=== PATIENT | female | born 1985 | race Caucasian/White ===

== ENCOUNTER → 2017-05-22 16:25 | Outpatient (CLI) | payer OTHER, SELFPAY ==
[2017-05-22 17:50] LABS: hCG Titer Quant., Serum < 1 mIU/mL (<9 non-preg)
== END ==
PROVIDERS: Family Provider Nurse Practitioner Family; PCP Nurse Practitioner Family; Visit Provider Obstetrics & Gynecology
DX: N91.2 Amenorrhea, unspecified (principal)
CPT/HCPCS: 36415; 84702

== ENCOUNTER → 2017-07-08 12:01 | Outpatient (CLI) | payer OTHER, SELFPAY ==
[2017-07-08 16:00] LABS: Absolute Lymphocyte Count 1.79 X10^3/ul (0.83-4.51); Absolute Neutrophil Count 2.1 X10^3/uL (2.0-7.7); Basophil# 0.04 X10^3/uL; Basophil% 0.9 % (0-1); Eosinophil# 0.17 X10^3/uL; Eosinophils% 3.7 % (0-5); Hematocrit 44.2 % (37-47); Lymphocyte # 1.79 X10^3/ul (4.0); Lymphocyte % 38.9 % (19-41); Mean Corp Hgb Conc 33.9 g/gl (32-36); Mean Corpuscular Hgb 30.6 pg (27.0-32.0); Mean Corpuscular Volume 90.2 fL (81-99); Mean Platelet Vol. 11.3 fl (6.2-12.0); Monocyte# 0.46 X10^3/uL; Neutrophil # 2.13 X10^3/uL (2.7-7.7); Neutrophil % 46.3 % (47-70); Platelet Count 159 K/mm3 (150-450); RBC Distribution Width CV 12.9 % (11.6-14.6); White Blood Count 4.6 K/mm3 (4.4-11.0)
[2017-07-08 16:01] LABS: POSITIVE COUNT NO; POSITIVE DIFFERENTIAL NO; POSITIVE MORPHOLOGY NO
[2017-07-08 16:19] LABS: Erythrocyte Sedimentation Rate < 1 mm/hr (0-20)
[2017-07-08 16:40] LABS: ALB/GLOB Ratio 1.2 RATIO (0.9-2.4); AST(SGOT) 11 U/L (15-37); Alanine Aminotransfer ALT/SGPT 22 U/L (13-56); Alkaline Phosphatase 52 U/L (45-117); Anion Gap 6 (5-15); BUN 13 mg/dL (7-18); BUN/Creat Ratio 18.2 RATIO (10-20); CRP < 2.90 mg/L (0.0-3.0); Calcium,Total 8.8 mg/dL (8.5-10.1); Chloride 108 mmol/L (98-107); Creatinine, Serum 0.72 mg/dL (0.55-1.02); EST Glomerular Filtration Rate 100 mL/min (>60); Est Glom Filt Rate - Afr Amer 121 mL/min (>60); Globulin 3.4 g/dL (2.2-4.2); Glucose 83 mg/dL (74-106); Potassium 4.8 mmol/L (3.5-5.1); Protein, Total 7.4 g/dL (6.4-8.2); Sodium Level 141 mmol/L (136-145)
[2017-07-10 11:42] LABS: Cancer Antigen 125 11.2 U/mL (0.0-38.1)
== END ==
PROVIDERS: Visit Provider Obstetrics & Gynecology
DX: N83.291 Other ovarian cyst, right side (principal); R76.0 Raised antibody titer; Z79.899 Other long term (current) drug therapy
CPT/HCPCS: 36415; 80053; 85025; 85652; 86140; 86304

== ENCOUNTER → 2017-07-10 13:03 | Outpatient (CLI) | payer OTHER, SELFPAY ==
--- NOTE | 2017-07-10 13:06 | US_ITS ---
STUDY: ABDOMINAL ULTRASOUND - RIGHT UPPER QUADRANT REASON FOR VISIT: Female, 31 years old. Right upper quadrant pain. TECHNIQUE: Ultrasound evaluation of the right upper quadrant was performed with real-time and static carranza-scale imaging. TECHNICAL QUALITY: Adequate. COMPARISON: None. FINDINGS: Liver: The liver measures 14.4 cm. There is normal echogenicity of the liver. The bile ducts are within normal limits. There is hepatic color flow. The direction of portal flow is hepatopetal. There is a 1.5 cm x 1.1 cm x 1.2 cm slightly echogenic nodule in the right lobe of liver suggestive of a small hemangioma. This is close to the dome of the liver. Gallbladder: Normal distended gallbladder. The gallbladder wall measures 2.0 mm. There is a negative sonographic Martin's sign. There is no pericholecystic fluid. There are no gallstones. Common Bile Duct (C.B.D.): The common bile duct measures 1.5 mm. Pancreas: Normal size of the head, body and tail of the pancreas. There is normal echogenicity of the pancreas. There is no demonstrated pancreatic mass or cyst. Right Kidney: Normal size of the right kidney. The right kidney measures 10.3 cm x 5.0 cm x 4.0 cm. Normal renal cortex. The right cortex measures 1.2 cm. There is no demonstrated renal mass or cyst. There is no right hydronephrosis. US/Abdomen Limited IMPRESSION: Findings suggestive of a 1.5 cm x 1.1 cm x 1.2 cm hemangioma in the right lobe of the liver adjacent to the dome. Electronically Signed: Ladarius Mensah MD at 15:30 EDT Tel [phone], Service support ,
--- NOTE | 2017-07-10 13:40 | RAD_ITS ---
STUDY: X-RAY CHEST REASON FOR EXAM: Female, 31 years old. Right clavicular pain. TECHNIQUE: PA and lateral views of the chest. COMPARISON: Comparison is made with prior study dated November 01, 2013. FINDINGS: The lungs are clear and expanded. There is no demonstrated pleural abnormality. Normal size heart. Normal mediastinum and joe. Normal visualized pulmonary arteries. Normal visualized aortic arch and descending thoracic aorta. Normal visualized thoracic spine. Normal visualized ribs, clavicles, and shoulders. There is no demonstrated abnormality of the visualized soft tissue structures of the upper abdomen. RAD/Chest PA and Lateral IMPRESSION: Normal x-ray examination of the chest. Electronically Signed: Ladarius Mensah MD at 14:44 EDT Tel [phone], Service support ,
--- NOTE | 2017-07-10 14:06 | ECHOD_ITS ---
Reason For Study: KNOWN PFO Procedure This was a 2D Doppler, Color Flow transthoracic echocardiogram. The exam was of fair technical quality due to diminished acoustic windows. Exam performed in department. Left Ventricle Normal LV size. Left ventricular systolic function is normal. The estimated ejection fraction is 55 %. No evidence for diastolic dysfunction. No regional wall motion abnormalities noted. Right Ventricle Normal RV size. Normal systolic function. Atria Normal left atrium. Normal right atrium. Positive agitated saline contrast study for a right to left interatrial shunt c/w PFO vs. ASD. Mitral Valve There is no mitral annular calcification. Normal mitral valve. Trivial mitral valve insufficiency. Tricuspid Valve Normal tricuspid valve. Trivial tricuspid valve insufficiency. Right ventricular systolic pressure estimated to be 21 mmHg. Aortic Valve Trisinus/trileaflet aortic valve. Normal aortic valve. Pulmonic Valve The pulmonic valve is not well visualized. Trivial pulmonic valve insufficiency. Great Vessels The aortic root is not well visualized. Pericardium/Pleural No pericardial effusion. Medication 22 gauge I.V. with prn adaptor inserted into right arm. Performed a rapid injection of agitated mix of 9 cc saline and 1cc air to assess for atrial septal defect. MMode/2D Measurements & Calculations LVIDd: 4.4 cm IVSd: 0.71 cm LAV(MOD-bp): 37.1 ml LVIDs: 3.0 cm LVPWd: 0.92 cm LAV(MOD-bp) Indexed: 20.6 ml/m2 RVDd: 3.4 cm FS: 33.3 % LAV(MOD-sp2): 42.8 ml LAV(MOD-sp4): 30.7 ml LA A4 area: 14.1 cm2 RA A4 area: 14.0 cm2 Doppler Measurements & Calculations MV E max davie: 77.6 cm/sec Lat Peak E' Davie: 16.4 cm/sec Med Peak E' Davie: 12.5 cm/sec MV A max davie: 50.0 cm/sec E/E' lat: 4.7 E/E' med: 6.2 MV E/A: 1.6 Ao V2 max: 140.5 cm/sec LV V1 max: 115.7 cm/sec PA V2 max: 81.7 cm/sec Ao max P.9 mmHg LV V1 max P.4 mmHg TR max davie: 209.2 cm/sec TR max P.5 mmHg Interpretation Summary Left ventricular systolic function is normal. The estimated ejection fraction is 55 %. Trivial mitral valve insufficiency. Trivial tricuspid valve insufficiency. Trivial pulmonic valve insufficiency. Right ventricular systolic pressure estimated to be 21 mmHg. No evidence for diastolic dysfunction. Positive agitated saline contrast study for a right to left interatrial shunt c/w PFO vs. ASD. Ordering Physician: Jessica Dee Referring Physician: Jessica Dee Performed By: Luisa Torres, PETAR, RVT
== END ==
PROVIDERS: Visit Provider Family Medicine
DX: R10.11 Right upper quadrant pain (principal); M89.8X1 Other specified disorders of bone, shoulder; Q21.1 Atrial septal defect
CPT/HCPCS: 71046; 76705; 93306; A4216

== ENCOUNTER 2017-08-05 11:02 | Day surgery (SDC) | payer OTHER, SELFPAY ==
[2017-07-31 16:17] LABS: Hematocrit 41.1 % (37-47); Hemoglobin 13.9 g/dl (12.0-15.0); Mean Corp Hgb Conc 33.8 g/gl (32-36); Mean Corpuscular Hgb 30.2 pg (27.0-32.0); Mean Corpuscular Volume 89.2 fL (81-99); Mean Platelet Vol. 10.1 fl (6.2-12.0); Platelet Count 140 K/mm3 (150-450); RBC Distribution Width CV 12.7 % (11.6-14.6); RBC Distribution Width SD 40.5 fl (35.1-43.9); Red Blood Count 4.61 M/mm3 (4.2-5.4); White Blood Count 7.4 K/mm3 (4.4-11.0)
[2017-07-31 16:19] LABS: Scan Indicated on CBC? Y/N NO
--- NOTE | 2017-08-05 | FLU_PTH ---
PATIENT: FANNY CELAYA [place] [facility] [place] [facility] [id number] AGE/SX: 31/F ROOM: RE08/05/[address]: Dr. Amelie High MD : 1985 BED: DIS: 08/05/2017 SPEC #: [id number] RECD: 08/05/17 14:44 STATUS: TIFFANIE CHELA #: [id number] CHAVEZ: 08/05/17 00:[address]: Amelie High DEPT: CYTOLOGY RECD BY: Samir Heredia ENTERED: 08/05/17 14:44 SP TYPE: Fluid OTHR DR: Paris Cabrera, MECHANICAL LEAD-C Tissues: Pelvis, NOS Procedures: Pap Stain (control) Special Stain Group II Surgery Specimen Level IV Cell Block Cytospin Fluid HEADER OPERATION: Diagnostic laparoscopy, aspiration of ovarian cyst, right oophorectomy PRE-OP DIAGNOSIS: Pelvic and perineal pain, right ovarian cyst TISSUE SUBMITTED: Right ovarian aspirate for cytology DIAGNOSIS CYTOLOGY Right ovarian aspirate for cytology (cytospin and cell block): Negative for malignant cells. See comment. SJ:kristine 08/06/17 COMMENT Please correlate with corresponding surgical specimen ([id number]) right ovary, oophorectomy with diagnosis of physiologic follicular and corpus luteal cysts. CYTOLOGY STUDY Slides are reviewed. CYTOLOGY GROSS Received is 1 ml of red cloudy fluid labeled with the patient's name and and designated per the requisition as right ovarian aspirate. Submitted for cytology preparation including cell block. / 08/05/17 TC:5 CPT: 30031, 52434
--- NOTE | 2017-08-05 | OV_PTH ---
PATIENT: FANNY CELAYA LOC: [facility] – [place] U#:[id number] AGE/SX: 31/F ROOM: RE08/05/[address]: Dr. Amelie High MD : 1985 BED: DIS: 08/05/2017 SPEC #: [id number] RECD: 08/05/17 14:44 STATUS: TIFFANIE CHELA #: [id number] CHAVEZ: 08/05/17 00:[address]: Amelie High DEPT: SURGICAL PATHOLOGY RECD BY: Samir Heredia ENTERED: 08/05/17 14:45 SP TYPE: OVARY OTHR DR: Paris Cabrera, SCHOOL PSYCHOMETRIST-C Tissues: Right ovary Procedures: Surgery Specimen Level IV HEADER OPERATION: Diagnostic laparoscopy, aspiration of ovarian cyst, right oophorectomy PRE-OP DIAGNOSIS: Pelvic and perineal pain, right ovarian cyst TISSUE SUBMITTED: Right ovary MICROSCOPIC DIAGNOSIS Right ovary, oophorectomy: Physiologic follicular and corpus luteal cysts. SJ:kristine 08/06/17 MICROSCOPIC DESCRIPTION Slides are reviewed. GROSS DESCRIPTION Received in fixative is one container labeled with the patient's name and designated right ovary. The specimen consists of a soft to cystic ovary weighing 15 gm and measuring 4.5 x 3 x 2.5 cm. The outer surface is smooth without any papillation. The resection margin is inked blue. Sections reveal multiple cysts filled with clear to hemorrhagic fluid. A corpus luteum is also noted measuring 2 cm in greatest dimension. The larger cyst measures 2.5 cm in greatest dimension. Water Softener Service Supervisor sections are submitted in four cassettes. / ANTONIO:kristine 08/05/17 TC:4 CPT: 63584
--- NOTE | 2017-08-05 11:11 | EKG12_ITS ---
Test Reason : PREOP Blood Pressure : / mmHG Vent. Rate : 064 BPM Atrial Rate : 064 BPM P-R Int : 140 ms QRS Dur : 084 ms QT Int : 372 ms P-R-T Axes : 070 077 059 degrees QTc Int : 383 ms Normal sinus rhythm Normal ECG No previous ECGs available Confirmed by MICHAEL ZUÑIGA, MARCOS ([id number]), newspaper or periodical editor YASMIN CORNELIUS ([id number]) on 08/06/2017 11:17:15 AM Referred By: Amelie High Confirmed By:MARCOS RODRIGUEZ MD
[2017-08-05 11:21] VITALS: BP 120/71; PULSE 79; RESP 16; TEMP 36.8; O2SAT 99; BMI 23.6
[2017-08-05 11:32] LABS: Internal QC Validated? YES +Cl - CLEAR BKGD; Pregnancy, Urine Negative Negative
[2017-08-05 11:39] LABS: International Normalized Ratio 1.1; Prothrombin Time (Protime)PT. 13.8 SECONDS (11.7-14.9)
[2017-08-05 11:40] LABS: Partial Thromboplast Time 29.2 Seconds (24.1-36.2)
--- NOTE | 2017-08-05 12:25 | PCM.DC ---
You will use the following diet at home:: No restrictions Discharge Activity: May not drive while taking narcotic pain medications., May Shower, May Take a Tub Bath Return to work on:: 08/10/17 May resume sexual activity in: 1 week Weight Bearing Status: Weight bearing as tolerated Call your doctor if your incision/area has: Continuous Slow Oozing, Sudden Increased Bleeding, Increased Pain/ Swelling, Increased Redness Call your doctor if you observe: Fever of 101 or Higher, Inability to have a bowel movement, Uncontrolled pain Change Dressing in (Days):: 4 Remove Dressing in (days):: 4 Cleanse incision/area with: Soap & Water, Keep Dressing Clean & Dry Allergies/Adverse Reactions: Allergies doxycycline Allergy (Unknown, Verified 07/30/17 15:00) Unknown Penicillins Allergy (Unknown, Verified 07/30/17 15:00) Unknown vancomycin Allergy (Unknown, Verified 07/30/17 15:00) Unknown bee pollen [Bee Pollen] Allergy (Verified 07/30/17 15:00) Swelling piperacillin sodium [From Zosyn] Allergy (Verified 07/30/17 15:00) Anaphylaxis tazobactam sodium [From Zosyn] Allergy (Verified 07/30/17 15:00) Anaphylaxis tramadol Adverse Reaction (Verified 07/30/17 15:00) Nausea/Vom/Diarrhea Medications to take at Discharge Albuterol IH (ProAir) [Proair Hfa] 1 - 2 puff INHALATION Q4H PRN PRN 10/31/13 Montelukast [Singulair] 10 mg PO DAILY 10/31/13 cetirizine 10 mg capsule 10 mg PO QDAY 07/13/17 spironolactone 100 mg tablet 100 mg PO DAILY 90 Days #90 07/13/17 tocilizumab 162 mg/0.9 mL subcutaneous syringe 162 mg SC QWEEK 28 Days #4 07/13/17 Oxycodone [Oxyir] 5 mg PO Q4H PRN PRN 3 Days #10 tablet 08/05/17 The following prescriptions were given: Oxycodone [Oxyir] 5 mg PO Q4H PRN PRN 3 Days #10 tablet PRN Reason: Mod-Severe Pain (4-10/10) Primary Care Physician: Paris Cabrera NP-C [Primary Care Provider] -
[2017-08-05] MEDS: Bupivacaine Mpf 0.5% 30 ML VIAL (13:00)
[2017-08-05 13:26] VITALS: BP 117/59; BP 120/71; PULSE 82; RESP 16; TEMP 36.7; O2SAT 100
[2017-08-05 13:45] VITALS: BP 116/79; BP 120/71; PULSE 60; RESP 16; O2SAT 100
[2017-08-05 14:00] VITALS: BP 109/75; BP 120/71; PULSE 70; RESP 16; TEMP 36.3; O2SAT 96
[2017-08-05] MEDS: oxyCODONE 5 MG Tablet PO (14:44)
--- NOTE | 2017-08-05 14:47 | PCM.OP.BLANK ---
Operative Report Date of Procedure: 08/05/17 PROCEDURE: Laparoscopy R ovarian cyst aspiration R oophorectomy PREOPERATIVE DIAGNOSIS: Persistent R ovarian cyst -- with daughter cysts within large cyst Presence of Mirena IUD POSTOPERATIVE diagnosis: Same Surgeon: Amelie High MD Anesthesia: general anesthesia. Sheree Flores CRNA Employee Benefits Coordinator: JEANIE Jimenez EBL: minimal Complications: None Drains: Red Prado catheter used to drain the bladder prior to initiation of the case Fluids: LR replacement Findings; Normal appearing, anteverted uterus. Fallopian tubes WNL bilaterally. Left ovary WNL and freely mobile. Right ovary globally enlarged with papule consistent with recent ovulation. Cystic area aspirated of pink / red tinged serous fluid. Unable to fully aspirate to collapse the ovary to normal appearance. Gross inspection of bowel, omentum WNL. Photos were taken of the uterus and ovaries then of the R adnexa after R oophorectomy Narrative account: After the risks, benefits, alternatives of procedure had been reviewed with the patient, informed consent was obtained. The patient was taken back to the Operative room with an IV running. she was positioned on the operating table in dorsal supine position, where she was given general anesthesia. Once asleep she was repositioned to the dorsal lithotomy position and prepped and draped in the usual sterile fashion. A red Prado catheter was used to drain the bladder prior to initiating the case. A sponge stick was placed into the vagina to allow manipulation of the uterus and cervix during the case. Attention was then turned to the anterior abdominal wall where 8 cc of 0. 5 % Marcaine was instilled at the suprapubic and infraumbilical skin and at a point midway between in the midline. Skin incisions were then created in the midline at the suprapubic skin and at the infraumbilical skin and midway between the two. While maintaining upward traction of the anterior abdominal wall a Veress needle was inserted through the umbilical incision into the peritoneal cavity. There was free drop of saline, low opening pressure and free flow of CO2 noted. Once the intraabdominal pressure had reached 12 mm of mercury the Veress needle was removed and a bladeless 5 mm trocar was placed through infraumbilical skin incision into the peritoneal cavity. Correct placement was confirmed using the scope. Under direct visualization then with the patient in Trendelenburg position, a bladeless 5 mm trocar was inserted in through suprapubic skin incision into the peritoneal cavity and at a point midway between the infraumbilical and suprapubic trocars. The uterus as anteverted and both ovaries and fallopian tubes were inspected. The right ovary was approximately twice the size of the L ovary and was globally enlarged with a spot noted consistent with likely recent ovulation. The R infundibulopelvic ligament was grasped and the R ovary was punctured to aspirate the cyst. Less than 10 cc of pink to light red tinged serous appearing liquid was retrieved and sent to pathology as cytology. The R ovary remained enlarged in appearance and despite other attempts to further aspirate the cyst, no additional fluid was withdrawn and the ovary remained larger in appearance than the L ovary. Given this fact and the appearance of the cyst on ultrasound the decision was made to proceed with a right oophorectomy. Using a grasper and LigaSure device the R ovary was excised. A 10-12 mm bladeless trochar was inserted into the suprapubic skin incision as the 5 mm trochar was removed from that site. An EndoCatch bag was placed into the abdominal / pelvic cavity and the R ovary was placed into the bag and brought through the suprapubic incision. the pelvis was inspected and photos were taken. Excellent hemostasis was noted at the excision site. Photos were taken of the uterus and normal appearing left ovary, and normal appearing bilateral fallopian tubes. At this point the the procedure was terminated. The pneumoperitoneum was reduced and the instruments and trocars were removed from he the anterior abdominal wall skin. The skin incisions were closed with 4-0 Monocryl in a subcuticular fashion. Dermabond and OpSites were applied to the skin. The sponge stick was removed from the vagina. The patient was returned to dorsal supine position. She was awakened from general anesthesia. She was transferred to the recovery room bed in stable condition after tolerating the procedure well. Sponge, lap, needle and instrument counts were correct x two. Medications given preop and intraoperatively included: 8 cc of 1/2 % Marcaine --used as a subcutaneous block . For a complete listing of medications given preop and intraop , please see the anesthesia record.
[2017-08-05] MEDS: proMETHazine 25 MG/ML Syringe 12.5 MG IV (15:16)
[2017-08-05 15:26] VITALS: BP 109/66; BP 120/71; PULSE 64; RESP 16; TEMP 36.8; O2SAT 64
[2017-08-12 07:53] LABS: Cytology, Body Fluid / CSF SEE PATHOLOGY REPORT
== END 2017-08-05 15:29 | disposition home or self-care (01) ==
LOC: SDC 11:04 → AC 11:04
PROVIDERS: Family Provider Nurse Practitioner Primary Care; PCP Nurse Practitioner Primary Care; Visit Provider Obstetrics & Gynecology
PROC: (CPT 58661; principal; 2017-08-05 12:15)
DX: N83.11 Corpus luteum cyst of right ovary (principal); R10.2 Pelvic and perineal pain; J45.909 Unspecified asthma, uncomplicated; Z97.5 Presence of (intrauterine) contraceptive device; Z87.891 Personal history of nicotine dependence
CPT/HCPCS: 00840; 58661; 36415; 81025; 85027; 85610; 85730; 88108; 88305; 88313; 93005; J7120; J2405

== ENCOUNTER → 2017-11-05 14:05 | Outpatient (CLI) | payer OTHER, SELFPAY ==
--- NOTE | 2017-11-05 14:07 | BI_ITS ---
MAMMOGRAPHY - BILATERAL DIAGNOSTIC REASON FOR EXAM: Female, 31 years old. Six-month history of right breast lump. Currently not palpable. PERTINENT HISTORY: Non-contributory. TECHNIQUE: Digital bilateral breast alber (3D mammographic acquisition) in the CC and MLO projections. 2-D mediolateral oblique (MLO) and craniocaudad (CC) views of both breasts were obtained. CAD: Full Field Digital Mammography with Computer Added Detection was performed. COMPARISON: None. Baseline examination. FINDINGS: Breast Composition: The breasts are extremely dense, which lowers the sensitivity of mammography. There are no dominant masses or suspicious calcifications. No other significant abnormalities are identified. BI/DIAG MAMM W/CAD, BILAT IMPRESSION: Stable bilateral diagnostic mammogram. One year follow-up recommended. (A) ASSESSMENT CATEGORY: BIRADS Category 1: Negative. A letter regarding these results will be sent to the patient by the facility within 30 days. Approximately 10% of breast cancers are not detected by mammography. A normal mammogram should not delay biopsy of a clinically suspicious abnormality. Electronically Signed: Ladarius Mensah MD at 15:44 EDT Tel [phone], Service support ,
--- NOTE | 2017-11-05 14:08 | US_ITS ---
STUDY: ULTRASOUND BREAST - RIGHT REASON FOR EXAM: Female, 31 years old. Palpable lumps in the right breast. TECHNIQUE: Axial and longitudinal images of the RIGHT breast were performed with a high resolution ultrasound transducer. COMPARISON: Comparison is made with prior mammogram done earlier today. FINDINGS: RIGHT Breast: There is a 9 mm x 9 mm x 5 mm cyst at the 11:00 position of the breast at 2 cm from the nipple. There is also evidence of a 4 mm x 4 mm x 3 mm cyst at the 10:00 position of the breast at 5 cm from the nipple. US/Breast Limited Unilateral IMPRESSION: 2 small cysts are seen as described. Routine mammographic follow-up recommended. ASSESSMENT CATEGORY: BIRADS Category 2: Benign. A letter regarding these results will be sent to the patient by the facility within 30 days. Electronically Signed: Ladarius Mensah MD at 15:39 EDT Tel [phone], Service support ,
== END ==
PROVIDERS: Visit Provider Obstetrics & Gynecology
DX: N63.11 Unspecified lump in the right breast, upper outer quadrant (principal)
CPT/HCPCS: 76642; 77062; 77066; G0279

== ENCOUNTER → 2018-02-15 09:29 | Outpatient (CLI) | payer OTHER, SELFPAY ==
[2018-02-15 10:27] LABS: Erythrocyte Sedimentation Rate < 1 mm/hr (0-20)
[2018-02-15 10:30] LABS: Absolute Neutrophil Count 1.9 X10^3/uL (2.0-7.7); Basophil# 0.04 X10^3/uL; Eosinophil# 0.25 X10^3/uL; Eosinophils% 6.2 % (0-5); Hemoglobin 14.8 g/dl (12.0-15.0); Lymphocyte % 36.9 % (19-41); Mean Corp Hgb Conc 33.6 g/gl (32-36); Mean Corpuscular Hgb 30.1 pg (27.0-32.0); Mean Corpuscular Volume 89.6 fL (81-99); Mean Platelet Vol. 10.3 fl (6.2-12.0); Monocyte% 9.9 % (0-10); Neutrophil # 1.87 X10^3/uL (2.7-7.7); Platelet Count 157 K/mm3 (150-450); RBC Distribution Width CV 12.8 % (11.6-14.6); RBC Distribution Width SD 41.4 fl (35.1-43.9); Red Blood Count 4.91 M/mm3 (4.2-5.4); White Blood Count 4.1 K/mm3 (4.4-11.0)
[2018-02-15 10:32] LABS: POSITIVE COUNT NO; POSITIVE DIFFERENTIAL NO; POSITIVE MORPHOLOGY NO
[2018-02-15 11:23] LABS: ALB/GLOB Ratio 1.3 RATIO (0.9-2.4); AST(SGOT) 10 U/L (15-37); Alanine Aminotransfer ALT/SGPT 20 U/L (13-56); Albumin, Serum 3.9 g/dL (3.2-5.0); Alkaline Phosphatase 41 U/L (45-117); Anion Gap 9 (5-15); BUN 14 mg/dL (7-18); BUN/Creat Ratio 18.2 RATIO (10-20); CRP < 2.90 mg/L (0.0-3.0); Calcium,Total 8.3 mg/dL (8.5-10.1); Chloride 107 mmol/L (98-107); Creatinine, Serum 0.77 mg/dL (0.55-1.02); EST Glomerular Filtration Rate 92 mL/min (>60); Est Glom Filt Rate - Afr Amer 111 mL/min (>60); Glucose 90 mg/dL (74-106); Potassium 4.1 mmol/L (3.5-5.1); Protein, Total 6.9 g/dL (6.4-8.2); Sodium Level 143 mmol/L (136-145)
== END ==
PROVIDERS: Family Provider Nurse Practitioner Primary Care; Referring Provider Internal Medicine Rheumatology; Visit Provider Internal Medicine Rheumatology
DX: R76.0 Raised antibody titer (principal); Z79.899 Other long term (current) drug therapy
CPT/HCPCS: 36415; 80053; 85025; 85652; 86140

== ENCOUNTER → 2018-07-08 07:20 | Outpatient (CLI) | payer OTHER, SELFPAY ==
[2018-07-08 10:03] LABS: Absolute Lymphocyte Count 1.66 X10^3/ul (0.83-4.51); Absolute Neutrophil Count 1.3 X10^3/uL (2.0-7.7); Basophil# 0.03 X10^3/uL; Basophil% 0.8 % (0-1); Eosinophil# 0.17 X10^3/uL; Eosinophils% 4.8 % (0-5); Hemoglobin 14.4 g/dl (12.0-15.0); Lymphocyte # 1.66 X10^3/ul (4.0); Lymphocyte % 46.5 % (19-41); Mean Corp Hgb Conc 34.3 g/gl (32-36); Mean Corpuscular Hgb 29.6 pg (27.0-32.0); Mean Corpuscular Volume 86.4 fL (81-99); Mean Platelet Vol. 10.3 fl (6.2-12.0); Monocyte# 0.42 X10^3/uL; Monocyte% 11.8 % (0-10); Neutrophil # 1.29 X10^3/uL (2.7-7.7); Neutrophil % 36.1 % (47-70); Platelet Count 147 K/mm3 (150-450); RBC Distribution Width CV 12.2 % (11.6-14.6); RBC Distribution Width SD 37.8 fl (35.1-43.9); Red Blood Count 4.86 M/mm3 (4.2-5.4); White Blood Count 3.6 K/mm3 (4.4-11.0)
[2018-07-08 10:05] LABS: POSITIVE COUNT NO; POSITIVE DIFFERENTIAL NO; POSITIVE MORPHOLOGY NO
[2018-07-08 10:12] LABS: Internal QC Validated? YES +Cl - CLEAR BKGD; Pregnancy, Serum, hCG Quali. NEGATIVE Negative
[2018-07-08 10:17] LABS: ALB/GLOB Ratio 1.3 RATIO (0.9-2.4); AST(SGOT) 15 U/L (15-37); Alanine Aminotransfer ALT/SGPT 20 U/L (13-56); Albumin, Serum 3.8 g/dL (3.2-5.0); Alkaline Phosphatase 44 U/L (45-117); Anion Gap 5 (5-15); BUN 14 mg/dL (7-18); BUN/Creat Ratio 17.7 RATIO (10-20); Calcium,Total 8.4 mg/dL (8.5-10.1); Chloride 110 mmol/L (98-107); Cholesterol 134 mg/dL (200); Creatinine, Serum 0.79 mg/dL (0.55-1.02); EST Glomerular Filtration Rate 88 mL/min (>60); Est Glom Filt Rate - Afr Amer 107 mL/min (>60); Glucose 85 mg/dL (74-106); High Density Lipoprotein 66 mg/dL; Protein, Total 6.8 g/dL (6.4-8.2); Sodium Level 143 mmol/L (136-145); Triglycerides 72 mg/dL; Very Low Density Lipoprotein 14 mg/dL (5-40)
== END ==
DX: L70.0 Acne vulgaris (principal); Z79.899 Other long term (current) drug therapy
CPT/HCPCS: 36415; 80053; 80061; 84703; 85025

== ENCOUNTER → 2018-08-03 | Outpatient (CLI) | payer OTHER, SELFPAY ==
[2018-08-03 14:38] LABS: Bacteria 0 SEEN /hpf (None Seen)
[2018-08-03 15:21] LABS: Color, Urine Yellow (Yellow); Glucose, Dipstick Normal (Normal); Ketone-Dipstick Negative (Negative); Leukocyte Esterase-Dipstick 25 /ul (Negative); Nitrite-Dipstick Negative (Negative); Occult Blood-Urine 10 /ul (Negative); Protein-Dipstick Negative (Negative); Specific Gravity, Urine 1.025 (1.002-1.030); Urine Bilirubin Dipstick Negative (Negative); Urine Clarity Clear (Clear); Urine Urobilinogen Normal (Normal)
[2018-08-03 15:29] LABS: Red Blood Cells-Urine 0-5 SEEN /hpf (0-5); Squamous Epithelial Cells - UA 0-5 SEEN /hpf (5-10); White Blood Cells 0-5 SEEN /hpf (0-5)
[2018-08-03 15:30] LABS: Mucous, Urine RARE /hpf (<or=2+)
== END | disposition home or self-care (01) ==
LOC: LABSPEC 14:16
PROVIDERS: Referring Provider Physician Assistant Surgical; Visit Provider Physician Assistant Surgical
DX: R30.0 Dysuria (principal)
CPT/HCPCS: 81001; 87086; 87088

== ENCOUNTER 2018-08-06 09:11 | Outpatient (RCR) | payer OTHER, SELFPAY ==
[2018-08-06 10:19] LABS: Absolute Lymphocyte Count 1.53 X10^3/ul (0.83-4.51); Absolute Neutrophil Count 1.4 X10^3/uL (2.0-7.7); Basophil# 0.04 X10^3/uL; Basophil% 1.1 % (0-1); Eosinophil# 0.24 X10^3/uL; Eosinophils% 6.5 % (0-5); Hematocrit 42.3 % (37-47); Hemoglobin 14.4 g/dl (12.0-15.0); Lymphocyte # 1.53 X10^3/ul (4.0); Lymphocyte % 41.4 % (19-41); Mean Corpuscular Hgb 29.8 pg (27.0-32.0); Mean Corpuscular Volume 87.6 fL (81-99); Mean Platelet Vol. 10.4 fl (6.2-12.0); Monocyte# 0.44 X10^3/uL; Monocyte% 11.9 % (0-10); Neutrophil # 1.44 X10^3/uL (2.7-7.7); Neutrophil % 38.8 % (47-70); Platelet Count 150 K/mm3 (150-450); RBC Distribution Width CV 12.4 % (11.6-14.6); RBC Distribution Width SD 39.9 fl (35.1-43.9); Red Blood Count 4.83 M/mm3 (4.2-5.4); White Blood Count 3.7 K/mm3 (4.4-11.0)
[2018-08-06 10:21] LABS: POSITIVE COUNT NO; POSITIVE DIFFERENTIAL NO; POSITIVE MORPHOLOGY NO
[2018-08-06 10:32] LABS: ALB/GLOB Ratio 1.3 RATIO (0.9-2.4); AST(SGOT) 13 U/L (15-37); Alanine Aminotransfer ALT/SGPT 19 U/L (13-56); Alkaline Phosphatase 39 U/L (45-117); Anion Gap 3 (5-15); BUN 12 mg/dL (7-18); BUN/Creat Ratio 14.3 RATIO (10-20); Calcium,Total 8.6 mg/dL (8.5-10.1); Chloride 110 mmol/L (98-107); Cholesterol 154 mg/dL (200); Creatinine, Serum 0.84 mg/dL (0.55-1.02); EST Glomerular Filtration Rate 82 mL/min (>60); Est Glom Filt Rate - Afr Amer 100 mL/min (>60); Globulin 3.1 g/dL (2.2-4.2); Glucose 89 mg/dL (74-106); High Density Lipoprotein 58 mg/dL; Potassium 4.3 mmol/L (3.5-5.1); Protein, Total 7.1 g/dL (6.4-8.2); Sodium Level 140 mmol/L (136-145); Triglycerides 67 mg/dL; Very Low Density Lipoprotein 13 mg/dL (5-40)
[2018-08-06 10:53] LABS: hCG Titer Quant., Serum < 1 mIU/mL (1-3)
[2018-08-09 11:46] LABS: LDL, Direct 120295 91 mg/dL (0-99)
== END 2018-08-06 09:30 | disposition home or self-care (01) ==
LOC: MTLAB 09:11
DX: L70.0 Acne vulgaris (principal); Z79.899 Other long term (current) drug therapy
CPT/HCPCS: 36415; 80053; 80061; 83721; 84702; 85025

== ENCOUNTER → 2018-08-27 11:49 | Outpatient (CLI) | payer OTHER, SELFPAY ==
[2018-08-27 18:36] LABS: Chlamydia Trachomatis by PCR Negative (Negative); Neisserai gonorrhoeae by PCR Negative (Negative); Probe Check PASS; Sample Adequacy Control PASS; Specimen Processing Control PASS
== END ==
PROVIDERS: Visit Provider Obstetrics & Gynecology
DX: Z30.430 Encounter for insertion of intrauterine contraceptive device (principal); Z11.3 Encounter for screening for infections with a predominantly sexual mode of transmission
CPT/HCPCS: 87491; 87591

== ENCOUNTER 2018-09-01 07:23 | Outpatient (RCR) | payer OTHER, SELFPAY ==
[2018-09-01 10:21] LABS: Erythrocyte Sedimentation Rate < 1 mm/hr (0-20)
[2018-09-01 10:23] LABS: Absolute Lymphocyte Count 1.78 X10^3/uL (0.83-4.51); Absolute Neutrophil Count 1.4 X10^3/uL (2.0-7.7); Basophil# 0.04 X10^3/uL; Basophil% 1.1 % (0-1); Eosinophil# 0.21 X10^3/uL; Eosinophils% 5.6 % (0-5); Hemoglobin 14.6 g/dL (12.0-15.0); Lymphocyte # 1.78 X10^3/ul (4.0); Lymphocyte % 47.5 % (19-41); Mean Corp Hgb Conc 33.2 g/dL (32-36); Mean Corpuscular Hgb 29.9 pg (27.0-32.0); Mean Corpuscular Volume 90.2 fL (81-99); Mean Platelet Vol. 10.7 fl (6.2-12.0); Monocyte# 0.36 X10^3/uL; Monocyte% 9.6 % (0-10); NRBC Flagged by Analyzer 0 % (0-5); Neutrophil # 1.35 X10^3/uL (2.7-7.7); Neutrophil % 35.9 % (47-70); Platelet Count 169 K/mm3 (150-450); RBC Distribution Width CV 12.4 % (11.6-14.6); RBC Distribution Width SD 40.7 fl (35.1-43.9); Red Blood Count 4.88 M/mm3 (4.2-5.4); White Blood Count 3.8 K/mm3 (4.4-11.0)
[2018-09-01 10:59] LABS: ALB/GLOB Ratio 1.2 RATIO (0.9-2.4); AST(SGOT) 15 U/L (15-37); Alanine Aminotransfer ALT/SGPT 24 U/L (13-56); Albumin, Serum 4.1 g/dL (3.2-5.0); Alkaline Phosphatase 46 U/L (45-117); Anion Gap 10 (5-15); BUN 13 mg/dL (7-18); BUN/Creat Ratio 15.5 RATIO (10-20); CRP < 2.90 mg/L (0.0-3.0); Calcium,Total 8.8 mg/dL (8.5-10.1); Chloride 107 mmol/L (98-107); Cholesterol 186 mg/dL (200); Creatinine, Serum 0.84 mg/dL (0.55-1.02); EST Glomerular Filtration Rate 83 mL/min (>60); Est Glom Filt Rate - Afr Amer 100 mL/min (>60); Globulin 3.4 g/dL (2.2-4.2); Glucose 85 mg/dL (74-106); High Density Lipoprotein 63 mg/dL; Potassium 4.2 mmol/L (3.5-5.1); Protein, Total 7.5 g/dL (6.4-8.2); Sodium Level 142 mmol/L (136-145); Triglycerides 111 mg/dL; Very Low Density Lipoprotein 22 mg/dL (5-40)
[2018-09-02 10:41] LABS: HCG BETA-SUBUNIT QUANT. < 1 mIU/mL (.)
== END 2018-09-15 15:57 | disposition home or self-care (01) ==
LOC: MTLAB 07:23
PROVIDERS: Family Provider Internal Medicine; PCP Internal Medicine
DX: L70.0 Acne vulgaris (principal); Z79.899 Other long term (current) drug therapy
CPT/HCPCS: 36415; 80053; 80061; 84702; 85025; 85652; 86140

== ENCOUNTER → 2018-10-02 08:51 | Outpatient (CLI) | payer OTHER, SELFPAY ==
[2018-09-23 19:23] VITALS: BMI 23.6
--- NOTE | 2018-10-02 08:54 | US_ITS ---
STUDY: ABDOMINAL ULTRASOUND REASON FOR EXAM: Female, 32 years old. Rheumatoid arthritis and leukopenia. TECHNIQUE: Transabdominal ultrasound was performed with real-time and static carranza scale imaging. TECHNICAL QUALITY: Adequate. COMPARISON: Ultrasound of the abdomen 04/12/2017 was not submitted for comparison. CT of the abdomen dated 01/05/2012 was not submitted for comparison. FINDINGS: Liver: The liver measures 16.8 cm. There is normal echogenicity of the liver. The bile ducts are within normal limits. There is hepatic color flow. The direction of portal flow is hepatopetal. Small hyperechoic lesion in the right hepatic lobe measures 1.5 x 1.5 x 1.8 cm. Gallbladder: Normal distended gallbladder measuring 6.2 cm in the sagittal dimension. The gallbladder wall measures 2 mm. There is a negative sonographic Martin's sign. There is no pericholecystic fluid. There are no gallstones. Common Bile Duct (C.B.D.): The common bile duct measures 3 mm. Pancreas: Normal size of the head, body and tail of the pancreas. There is normal echogenicity of the pancreas. There is no demonstrated pancreatic mass or cyst. The pancreatic duct is not dilated. Spleen: Normal size of the spleen. The spleen measures 11.1 x 4.2 x 5.4 cm. Right Kidney: Normal size of the right kidney. The right kidney measures 10.8 x 4.6 x 3.6 cm. Normal renal cortex. The right cortex measures 1.2 cm. 1.6 x 1.9 x 1.2 cm anechoic cyst. There is no right hydronephrosis. Left Kidney: Normal size of the left kidney. The left kidney measures 11.2 x 5.4 x 5.4 cm. Normal renal cortex. The left cortex measures 1.7 cm. There is no demonstrated renal mass or cyst. There is no left hydronephrosis. Aorta: Proximal dimensions are 1.9 x 1.3 cm. Mid dimensions are 1.4 x 1.2 cm. Distal dimensions are 1.2 x 1.3 cm. I.V.C.: The IVC is patent. There is no ascites. US/Abdomen Complete IMPRESSION: 1. 1.5 x 1.5 x 1.8 cm mildly hyperechoic lesion in the right hepatic lobe. This is most likely benign hepatic hemangioma. This was mentioned in previous ultrasound abdomen report of 07/10/2017. This hemangioma was also mentioned in a previous CT abdomen report of 01/05/2012. 2. No suspicious acute abnormality in the abdomen. 3. 1.6 x 1.9 x 1.2 cm anechoic cyst in the left kidney wasn't mentioned in previous ultrasound report of 04/12/2017. Electronically Signed: Rohit Nicholas MD at 11:10 EDT , Service support ,
== END ==
PROVIDERS: Family Provider Internal Medicine; PCP Internal Medicine; Referring Provider Internal Medicine; Visit Provider Internal Medicine
DX: M06.9 Rheumatoid arthritis, unspecified (principal); D72.819 Decreased white blood cell count, unspecified
CPT/HCPCS: 76700

== ENCOUNTER 2018-10-08 07:25 | Outpatient (RCR) | payer OTHER, SELFPAY ==
[2018-09-23 19:23] VITALS: BMI 23.6
[2018-10-08 10:39] LABS: Absolute Lymphocyte Count 1.63 X10^3/uL (0.83-4.51); Absolute Neutrophil Count 2.4 X10^3/uL (2.0-7.7); Basophil# 0.03 X10^3/uL; Basophil% 0.6 % (0-1); Eosinophil# 0.17 X10^3/uL; Eosinophils% 3.6 % (0-5); Hematocrit 41.6 % (37-47); Hemoglobin 14.1 g/dL (12.0-15.0); Lymphocyte # 1.63 X10^3/ul (4.0); Lymphocyte % 34.2 % (19-41); Mean Corp Hgb Conc 33.9 g/dL (32-36); Mean Corpuscular Hgb 30.8 pg (27.0-32.0); Mean Corpuscular Volume 90.8 fL (81-99); Mean Platelet Vol. 10.7 fl (6.2-12.0); Monocyte# 0.56 X10^3/uL; Monocyte% 11.7 % (0-10); NRBC Flagged by Analyzer 0 % (0-5); Neutrophil # 2.37 X10^3/uL (2.7-7.7); Neutrophil % 49.7 % (47-70); Platelet Count 161 K/mm3 (150-450); RBC Distribution Width CV 12.7 % (11.6-14.6); RBC Distribution Width SD 41.3 fl (35.1-43.9); Red Blood Count 4.58 M/mm3 (4.2-5.4); White Blood Count 4.8 K/mm3 (4.4-11.0)
[2018-10-08 11:00] LABS: ALB/GLOB Ratio 1.2 RATIO (0.9-2.4); AST(SGOT) 10 U/L (15-37); Alanine Aminotransfer ALT/SGPT 21 U/L (13-56); Albumin, Serum 3.7 g/dL (3.2-5.0); Alkaline Phosphatase 44 U/L (45-117); Anion Gap 6 (5-15); BUN 9 mg/dL (7-18); Calcium,Total 8.5 mg/dL (8.5-10.1); Chloride 111 mmol/L (98-107); Cholesterol 152 mg/dL (200); Creatinine, Serum 0.75 mg/dL (0.55-1.02); EST Glomerular Filtration Rate 94 mL/min (>60); Est Glom Filt Rate - Afr Amer 114 mL/min (>60); Globulin 3.2 g/dL (2.2-4.2); Glucose 83 mg/dL (74-106); High Density Lipoprotein 59 mg/dL; Potassium 4.2 mmol/L (3.5-5.1); Protein, Total 6.9 g/dL (6.4-8.2); Sodium Level 143 mmol/L (136-145); Triglycerides 88 mg/dL; Very Low Density Lipoprotein 18 mg/dL (5-40)
[2018-10-08 11:03] LABS: hCG Titer Quant., Serum < 1 mIU/mL (1-3)
[2018-10-11 13:49] LABS: LDL, Direct 120295 83 mg/dL (0-99)
[2018-10-14 13:28] LABS: CRP < 2.90 mg/L (0.0-3.0)
== END 2018-10-08 08:25 | disposition home or self-care (01) ==
LOC: MTLAB 07:25
PROVIDERS: Family Provider Internal Medicine; PCP Internal Medicine
DX: L70.0 Acne vulgaris (principal); R76.0 Raised antibody titer; Z79.899 Other long term (current) drug therapy
CPT/HCPCS: 36415; 80053; 80061; 83721; 84702; 85025; 86140

== ENCOUNTER → 2018-10-21 15:46 | Outpatient (CLI) | payer OTHER, SELFPAY ==
[2018-09-23 19:23] VITALS: BMI 23.6
[2018-10-21 14:27] VITALS: BMI 21.4
--- NOTE | 2018-10-21 15:49 | BD_ITS ---
STUDY: DUAL ENERGY X-RAY ABSORPTIOMETRY / DXA REASON FOR EXAM: Female, 32 years old. Osteopenia. Prednisone use. No loss of height. TECHNIQUE: Bone Mineral Density (BMD) measurements of lumbar spine and bilateral hips were obtained. COMPARISON: None. FINDINGS: Lumbar Spine (L1-L4): g/cm2 (1.024) / T-score (-1.3) / Z-score (-1.3) Findings are suggestive of osteopenia with a low fracture risk. Left Femur Total: g/cm2 (0.829) / T-score (-1.4) / Z-score (-1.3) Left Femoral Neck: g/cm2 (0.896) / T-score (-1.0) / Z-score (-0.8) Right Femur Total: g/cm2 (0.825) / T-score (-1.5) / Z-score (-1.3) Right Femoral Neck: g/cm2 (0.868) / T-score (-1.2) / Z-score (-1.0) BD/Dexa Bone Density Study IMPRESSION: The patient is considered osteopenic as outlined below according to World Adal Organization (WHO) criteria with a low fracture risk. Reference Information: The T-score is the number of standard deviations above or below the standard which is normal for young adults at their peak bone mineral density. The World Health Organization (WHO) interprets the T-scores as follows: Above -1 Normal bone density Between -1 and -2.5 Osteopenia Equal to / or below -2.5 Osteoporosis As a practical clinical guideline, osteopenia may be graded as follows: Mild -1 through -1.5 Moderate -1.6 through -2.0 Severe -2.1 through -2.4 The Z-score is the number of standard deviations above or below age-matched controls. A Z-score of less than -1.5 would be considered abnormal. References: 1. NIH Osteoporosis and Related Bone Diseases http://www.osteo.org 2. International Society for Clinical Densitometry http://www.iscd.org 3. National Osteoporosis Foundation http://www.nof.org Electronically Signed: Ladarius Mensah, at 9:06 EDT , Service support ,
== END ==
PROVIDERS: Family Provider Internal Medicine; PCP Internal Medicine; Referring Provider Internal Medicine; Visit Provider Internal Medicine
DX: M85.80 Other specified disorders of bone density and structure, unspecified site (principal); Z79.52 Long term (current) use of systemic steroids
CPT/HCPCS: 77080

== ENCOUNTER → 2018-11-17 07:42 | Outpatient (CLI) | payer OTHER, SELFPAY ==
[2018-10-21 14:27] VITALS: BMI 21.4
[2018-11-17 10:19] LABS: Internal QC Validated? YES +Cl - CLEAR BKGD; Pregnancy, Urine Negative Negative
== END ==
PROVIDERS: Family Provider Internal Medicine; PCP Internal Medicine
DX: Z79.899 Other long term (current) drug therapy (principal)
CPT/HCPCS: 81025

== ENCOUNTER → 2018-12-08 08:41 | Outpatient (CLI) | payer OTHER, SELFPAY ==
[2018-12-08 08:20] VITALS: BMI 21.4
[2018-12-08 08:44] LABS: Bacteria 0 SEEN /hpf (None Seen); Red Blood Cells-Urine 0 SEEN /hpf (0-5)
[2018-12-08 14:37] LABS: Color, Urine Yellow (Yellow); Glucose, Dipstick Normal (Normal); Ketone-Dipstick Negative (Negative); Leukocyte Esterase-Dipstick 100 /ul (Negative); Nitrite-Dipstick Positive (Negative); Occult Blood-Urine 10 /ul (Negative); Protein-Dipstick 15 mg/dl (Negative); Urine Bilirubin Dipstick Negative (Negative); Urine Clarity Sl. Cloudy (Clear); Urine Urobilinogen Normal (Normal)
[2018-12-08 14:48] LABS: Mucous, Urine 1+ /hpf (<or=2+); Squamous Epithelial Cells - UA 0-5 SEEN /hpf (5-10); White Blood Cells 0-5 SEEN /hpf (0-5)
== END ==
PROVIDERS: Family Provider Internal Medicine; PCP Internal Medicine; Visit Provider Internal Medicine
DX: R30.0 Dysuria (principal)
CPT/HCPCS: 81001; 87086; 87088

== ENCOUNTER 2019-01-10 07:45 | Outpatient (RCR) | payer OTHER, SELFPAY ==
[2018-09-23 19:23] VITALS: BMI 23.6
[2018-12-30 17:23] VITALS: BMI 21.4
[2019-01-10 10:24] LABS: Absolute Lymphocyte Count 1.59 X10^3/uL (0.83-4.51); Absolute Neutrophil Count 1.5 X10^3/uL (2.0-7.7); Basophil# 0.03 X10^3/uL; Basophil% 0.8 % (0-1); Eosinophil# 0.24 X10^3/uL; Eosinophils% 6.4 % (0-5); Hematocrit 40.2 % (37-47); Hemoglobin 13.5 g/dL (12.0-15.0); Lymphocyte # 1.59 X10^3/ul (4.0); Lymphocyte % 42.2 % (19-41); Mean Corp Hgb Conc 33.6 g/dL (32-36); Mean Corpuscular Hgb 29.9 pg (27.0-32.0); Mean Corpuscular Volume 89.1 fL (81-99); Mean Platelet Vol. 10.5 fl (6.2-12.0); Monocyte# 0.45 X10^3/uL; Monocyte% 11.9 % (0-10); NRBC Flagged by Analyzer 0 % (0-5); Neutrophil # 1.45 X10^3/uL (2.7-7.7); Neutrophil % 38.4 % (47-70); Platelet Count 142 K/mm3 (150-450); RBC Distribution Width CV 12.4 % (11.6-14.6); RBC Distribution Width SD 40.8 fl (35.1-43.9); Red Blood Count 4.51 M/mm3 (4.2-5.4); White Blood Count 3.8 K/mm3 (4.4-11.0)
[2019-01-10 10:35] LABS: ALB/GLOB Ratio 1.2 RATIO (0.9-2.4); AST(SGOT) 11 U/L (15-37); Alanine Aminotransfer ALT/SGPT 17 U/L (13-56); Albumin, Serum 3.7 g/dL (3.2-5.0); Alkaline Phosphatase 44 U/L (45-117); Anion Gap 5 (5-15); BUN 10 mg/dL (7-18); BUN/Creat Ratio 12.3 RATIO (10-20); Calcium,Total 8.3 mg/dL (8.5-10.1); Chloride 109 mmol/L (98-107); Cholesterol 137 mg/dL (200); Creatinine, Serum 0.81 mg/dL (0.55-1.02); EST Glomerular Filtration Rate 86 mL/min (>60); Est Glom Filt Rate - Afr Amer 104 mL/min (>60); Glucose 87 mg/dL (74-106); High Density Lipoprotein 65 mg/dL; Potassium 3.9 mmol/L (3.5-5.1); Protein, Total 6.7 g/dL (6.4-8.2); Sodium Level 141 mmol/L (136-145); Triglycerides 59 mg/dL; Very Low Density Lipoprotein 12 mg/dL (5-40)
[2019-01-10 10:49] LABS: Internal QC Validated? YES +Cl - CLEAR BKGD; Pregnancy, Serum, hCG Quali. NEGATIVE Negative
== END 2019-01-10 18:00 | disposition home or self-care (01) ==
LOC: MTLAB 07:45
PROVIDERS: Family Provider Internal Medicine; PCP Internal Medicine
DX: L70.0 Acne vulgaris (principal); Z79.899 Other long term (current) drug therapy
CPT/HCPCS: 36415; 80053; 80061; 84703; 85025

== ENCOUNTER 2019-01-16 21:02 | Emergency (ER) | payer OTHER, SELFPAY ==
[2019-01-12 16:51] VITALS: BMI 22.2
[2019-01-16 21:03] VITALS: BP 123/83; PULSE 85; RESP 15; TEMP 36.7; O2SAT 100; BMI 22.8
[2019-01-16] MEDS: DiphenhydrAMINE 50 MG/ML Syringe IV (21:29)
[2019-01-16] MEDS: MethylPREDNISolone 125 MG/2 ML Vial IV (21:29)
[2019-01-16] MEDS: Famotidine 200 MG/20 ML MDV 20 MG in 0.9% Normal Saline (Pres. free 8 ML 300 MG IV (21:37)
--- NOTE | 2019-01-16 22:40 | ED.VISSUMM ---
- ER Visit Summary Date of Service: 01/16/19 Chief Complaint: [Allergic reaction] History of Present Illness: The patient is a 33 F [presents to the emergency department with suspected allergic reaction this evening. Patient states that about an hour prior to arrival she developed some swelling to the left side of her hip and she thinks that left-sided of her face. Patient states that her throat became scratchy. Patient is unsure what may have triggered it. 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 Patient denies eating any unusual foods. She has had otherwise no new medications. She is not on an BUBBA inhibitor. She does take Spironolactone as well as Wellbutrin and a biologic that she is on for her rheumatoid arthritis but she is been on all these medications for over a year.] Physical Examination: [HEANTON-STUART, EOMI. Cranial nerves II through XII grossly intact. TMs clear. Mucous membranes moist. No adenopathy. Patient has some subtle edema of the lower lip. I do not appreciate any angioedema of the tongue or the oropharynx. Cardiovascular-regular rate and rhythm without murmur or ectopy Lungs-clear to auscultation, chest wall stable without crepitus or subcu emphysema Abdomen-normoactive bowel sounds, soft, nontender, no rebound or rigidity, no peritoneal signs. Extremities-intact ?4, normal range of motion, normal pulses, atraumatic] Test Results: [None indicated] Emergency Department Course and Treatment: [Patient had an IV line established and was given Benadryl as well as Pepcid and Solu-Medrol 125 mg IV. Patient was observed for about 2 hours and her symptoms resolved.] Treatment Plan: [Patient will be dispensed an EpiPen. The etiology of reaction is unclear. Patient advised to return if symptoms should return as far as lip or tongue swelling or difficulty breathing.] Disposition: [Discharged home in stable condition] Impression: [Angioedema/allergic reaction] This note was generated with [employer] software. It may contain incorrect words, spelling, and punctuation that were not noted in review of the chart prior to signing ED Disposition - Plan for ED Patient: Referrals: Becky Gallardo MD [Primary Care Provider] -
--- NOTE | 2019-01-16 22:42 | ED.DEP ---
ED Disposition - Plan for ED Patient: Instructions: ALLERGIC REACTION, Other (General) Referrals: Becky Gallardo MD [Primary Care Provider] - 3-5 Days
[2019-01-16 22:43] VITALS: PULSE 82; RESP 15; O2SAT 100
== END 2019-01-16 22:48 | disposition home or self-care (01) ==
LOC: ED 21:23
PROVIDERS: Emergency Provider Emergency Medicine; Family Provider Internal Medicine; PCP Internal Medicine
DX: T78.3XXA Angioneurotic edema, initial encounter (principal); M06.9 Rheumatoid arthritis, unspecified; J45.909 Unspecified asthma, uncomplicated
CPT/HCPCS: 96365; 96375; 99283; A4216; J3490

== ENCOUNTER 2019-01-21 07:55 | Outpatient (RCR) | payer OTHER, SELFPAY ==
[2019-01-12 16:51] VITALS: BMI 22.2
[2019-01-21 10:18] LABS: Erythrocyte Sedimentation Rate < 1 mm/hr (0-20)
[2019-01-21 10:19] LABS: Absolute Lymphocyte Count 1.74 X10^3/uL (0.83-4.51); Absolute Neutrophil Count 2.1 X10^3/uL (2.0-7.7); Basophil# 0.05 X10^3/uL; Basophil% 1.1 % (0-1); Eosinophil# 0.27 X10^3/uL; Eosinophils% 5.7 % (0-5); Hematocrit 45.1 % (37-47); Hemoglobin 15.1 g/dL (12.0-15.0); Lymphocyte # 1.74 X10^3/ul (4.0); Lymphocyte % 36.9 % (19-41); Mean Corp Hgb Conc 33.5 g/dL (32-36); Mean Corpuscular Hgb 30.2 pg (27.0-32.0); Mean Corpuscular Volume 90.2 fL (81-99); Mean Platelet Vol. 9.5 fl (6.2-12.0); Monocyte% 10.6 % (0-10); NRBC Flagged by Analyzer 0 % (0-5); Neutrophil # 2.12 X10^3/uL (2.7-7.7); Neutrophil % 45.1 % (47-70); Platelet Count 186 K/mm3 (150-450); RBC Distribution Width CV 12.9 % (11.6-14.6); RBC Distribution Width SD 42.3 fl (35.1-43.9); White Blood Count 4.7 K/mm3 (4.4-11.0)
[2019-01-21 10:21] LABS: ALB/GLOB Ratio 1.2 RATIO (0.9-2.4); AST(SGOT) 6 U/L (15-37); Alanine Aminotransfer ALT/SGPT 20 U/L (13-56); Albumin, Serum 3.9 g/dL (3.2-5.0); Alkaline Phosphatase 40 U/L (45-117); Anion Gap 3 (5-15); BUN 10 mg/dL (7-18); BUN/Creat Ratio 10.4 RATIO (10-20); CRP < 2.90 mg/L (0.0-3.0); Calcium,Total 8.6 mg/dL (8.5-10.1); Chloride 107 mmol/L (98-107); Creatinine, Serum 0.96 mg/dL (0.55-1.02); EST Glomerular Filtration Rate 71 mL/min (>60); Est Glom Filt Rate - Afr Amer 86 mL/min (>60); Globulin 3.2 g/dL (2.2-4.2); Glucose 93 mg/dL (74-106); Potassium 4.2 mmol/L (3.5-5.1); Protein, Total 7.1 g/dL (6.4-8.2); Sodium Level 139 mmol/L (136-145)
== END 2019-01-21 18:00 | disposition home or self-care (01) ==
LOC: MTLAB 07:55
PROVIDERS: Family Provider Internal Medicine; PCP Internal Medicine
DX: M06.09 Rheumatoid arthritis without rheumatoid factor, multiple sites (principal); R76.0 Raised antibody titer; L70.0 Acne vulgaris; Z79.899 Other long term (current) drug therapy
CPT/HCPCS: 36415; 80053; 85025; 85652; 86140

== ENCOUNTER 2019-02-06 15:34 | Inpatient (IN) | payer OTHER, SELFPAY ==
[2019-02-03 16:27] VITALS: BMI 21.1
[2019-02-06] VITALS (13 sets, daily range): BP systolic 87–130; BP diastolic 29–85; PULSE 77–102; RESP 14–24; TEMP 36.5–37.2; O2SAT 92–100; BMI 25.9; BMI 21.2; BMI 21.3
--- NOTE | 2019-02-06 15:42 | ED.VISSUMM ---
- ER Visit Summary Date of Service: 02/06/19 Chief Complaint: Abdominal pain History of Present Illness: The patient is a [address] High and Dr. Gallardo. She reports that approximate 10 minutes after having intercourse she had the abrupt onset of a sharp suprapubic pain. This began approximate 20 minutes ago. Pain is 10 on 10 at worst 9-10 currently. Is worsened by movement and relieved by remaining still. She had nausea without vomiting. No diarrhea. Her last bowel was yesterday. No melena or hematochezia. Patient reports that she is had dysuria for the past 10 days. She denies any vaginal bleeding or discharge. She reports her last menstrual period was approximately 6 months ago and she has an IUD in place. She has never had anything like this before. Physical Examination: Vitals: Stable. Afebrile. General: Well-nourished and well-developed. Head: Normocephalic atraumatic. Neck: Supple, no lymphadenopathy. No JVD. Nontender. Cardiovascular: Regular rate and rhythm. No murmurs. Respiratory: No respiratory distress. Clear to auscultation bilaterally. Abdominal: Soft, mild diffuse tenderness palpation and moderate suprapubic tenderness, nondistended, normal bowel sounds. No guarding, rebound, or peritoneal signs. Back: Nontender. Extremities: Nontender, no edema. Skin: Normal color, no rash. Neurologic: Alert and oriented ?3. Cranial nerves II through XII are intact. Normal strength and sensation. Psych: Normal affect. Test Results: CBC shows platelets 149, segmented for 74, monocytes of 16. Chem-7 shows a chloride of 112. LFTs are marked for an alk phos of 38. Lipase is normal. test is negative. Clinical Impression(s) from Imaging Studies Transvaginal US 02/06/19 16:36 IMPRESSION: Although there is a history of right oophorectomy, there is question of a 5 cm right pelvic mass. 2.4 cm probable hemorrhagic cyst of the left ovary. Moderate free fluid. IUD in normal position. Electronically Signed: Chandrakant Porras MD at 18:47 EST , Service support , Abdomen/Pelvis CT 02/06/19 17:42 IMPRESSION: Moderate free fluid in all quadrants, and possibly hematomas in the pelvis. Suspicion of ruptured hemorrhagic cyst of the left ovary possibly with active bleeding. Abnormal appearance of the IUD in the fundus of the uterus. Electronically Signed: Chandrakant Porras MD at 18:53 EST , Service support , ADDENDUM: 02/06/19 1903 IMPRESSION: Moderate free fluid in all quadrants, and possibly hematomas in the pelvis. Suspicion of ruptured hemorrhagic cyst of the left ovary possibly with active bleeding. Abnormal appearance of the IUD in the fundus of the uterus. N.B. : The above information has been verbally conveyed by Chandrakant Porras MD to JAVIER Klein, on 02/06/2019 18:57:00 (ET). Electronically Signed: Chandrakant Porras MD at 18:53 EST , Service support , Emergency Department Course and Treatment: Patient was given a dose of Toradol and Zofran IV with no relief. She was given morphine IV. She is resting more comfortably. Treatment Plan: The patient was discussed with Dr. Kelsey Navarrete. She has seen her in the emergency department and is taken her to the operating room. Disposition: Admitted in serious condition. Impression: 1. Hemoperitoneum. 2. Critical care time 33 minutes. This note was generated with [employer]er[employer] software. It may contain incorrect words, spelling, and punctuation that were not noted in review of the chart prior to signing ED Disposition - Plan for ED Patient: Disposition: Acute Care Hospital [facility]
[2019-02-06] MEDS: fentaNYL 100 MCG/2 ML Ampul 50 MCG IV ×2 (15:45→20:17)
[2019-02-06] MEDS: 0.9% Normal Saline 1,000 ML 1000 ML IV (15:51)
[2019-02-06] MEDS: Ketorolac 30 MG/ML Syringe IV (15:52)
[2019-02-06] MEDS: Ondansetron 4 MG/2 ML Vial IV ×2 (15:52→20:17)
[2019-02-06 16:00] LABS: Absolute Lymphocyte Count 0.95 X10^3/uL (0.83-4.51); Absolute Neutrophil Count 4.3 X10^3/uL (2.0-7.7); Basophil# 0.02 X10^3/uL; Basophil% 0.3 % (0-1); Eosinophil# 0.21 X10^3/uL; Eosinophils% 3.6 % (0-5); Hematocrit 42.3 % (37-47); Hemoglobin 14.6 g/dL (12.0-15.0); Lymphocyte # 0.95 X10^3/ul (4.0); Lymphocyte % 16.4 % (19-41); Mean Corp Hgb Conc 34.5 g/dL (32-36); Mean Corpuscular Hgb 30.4 pg (27.0-32.0); Mean Corpuscular Volume 87.9 fL (81-99); Mean Platelet Vol. 10.3 fl (6.2-12.0); Monocyte% 5.2 % (0-10); NRBC Flagged by Analyzer 0 % (0-5); Neutrophil # 4.32 X10^3/uL (2.7-7.7); Neutrophil % 74.3 % (47-70); Platelet Count 149 K/mm3 (150-450); RBC Distribution Width CV 12.4 % (11.6-14.6); RBC Distribution Width SD 40.1 fl (35.1-43.9); Red Blood Count 4.81 M/mm3 (4.2-5.4); White Blood Count 5.8 K/mm3 (4.4-11.0)
[2019-02-06 16:22] LABS: Internal QC Validated? YES +Cl - CLEAR BKGD; Pregnancy, Serum, hCG Quali. NEGATIVE Negative
[2019-02-06 16:25] LABS: ALB/GLOB Ratio 1.3 RATIO (0.9-2.4); AST(SGOT) 15 U/L (15-37); Alanine Aminotransfer ALT/SGPT 17 U/L (13-56); Albumin, Serum 3.9 g/dL (3.2-5.0); Alkaline Phosphatase 38 U/L (45-117); Anion Gap 5 (5-15); BUN 11 mg/dL (7-18); Calcium,Total 8.5 mg/dL (8.5-10.1); Chloride 112 mmol/L (98-107); Creatinine, Serum 0.85 mg/dL (0.55-1.02); EST Glomerular Filtration Rate 82 mL/min (>60); Est Glom Filt Rate - Afr Amer 99 mL/min (>60); Estimated Creatinine Clearance 90.69 ml/min; Globulin 2.9 g/dL (2.2-4.2); Glucose 94 mg/dL (74-106); Lipase 253 U/L (73-393); Potassium 4.2 mmol/L (3.5-5.1); Protein, Total 6.8 g/dL (6.4-8.2); Sodium Level 141 mmol/L (136-145)
--- NOTE | 2019-02-06 16:36 | US_ITS ---
STUDY: ULTRASOUND OF THE FEMALE PELVIS - COMPLETE REASON FOR EXAM: Female, 33 years old. Pain. Previous right oophorectomy. TECHNIQUE: Transvaginal TECHNICAL QUALITY: Adequate. COMPARISON: None. FINDINGS: The uterus is anteverted and is in a midline position. The uterus measures 9.6 x 5.7 x 4.3 cm. Normal uterine cervix. The endometrium measures 3 mm in thickness, and is hyperechoic. There is no demonstrated endometrial mass. There is no demonstrated myometrial mass. I.U.D. - The patient does have an I.U.D. The right ovary has been removed by history. Nevertheless, there is a 5 cm solid appearing mass in the right pelvis. Findings could represent bowel, a pedunculated fibroid, or a small mass from any residual ovarian tissue. The left ovary is visualized. The left ovary measures 4.1 x 4.3 x 2.1 cm. There is a 2.4 cm probable hemorrhagic cyst of the left ovary. There is normal arterial and normal venous vascularity. There is a moderate amount of fluid in the cul-de-sac. US/Transvaginal Non- IMPRESSION: Although there is a history of right oophorectomy, there is question of a 5 cm right pelvic mass. 2.4 cm probable hemorrhagic cyst of the left ovary. Moderate free fluid. IUD in normal position. Electronically Signed: Chandrakant Porras MD at 18:47 EST , Service support ,
[2019-02-06 17:17] LABS: Mucous, Urine 0 SEEN /hpf (<or=2+); Red Blood Cells-Urine 0 SEEN /hpf (0-5); Squamous Epithelial Cells - UA 0 SEEN /hpf (5-10)
[2019-02-06 17:29] LABS: Color, Urine Yellow (Yellow); Glucose, Dipstick Normal (Normal); Ketone-Dipstick 5 mg/dl (Negative); Leukocyte Esterase-Dipstick 500 /ul (Negative); Nitrite-Dipstick Negative (Negative); Occult Blood-Urine 25 /ul (Negative); Protein-Dipstick 15 mg/dl (Negative); Specific Gravity, Urine 1.015 (1.002-1.030); Urine Bilirubin Dipstick Negative (Negative); Urine Clarity Cloudy (Clear); Urine Urobilinogen Normal (Normal)
[2019-02-06 17:31] LABS: White Blood Cells 10-25 SEEN /hpf (0-5)
[2019-02-06 17:33] LABS: Bacteria RARE /hpf (None Seen)
--- NOTE | 2019-02-06 17:42 | CT_ITS ---
We are attempting to reach an attending provider to discuss findings. An addendum with communication details will be sent when the communication is complete. STUDY: CT ABDOMEN AND PELVIS WITH CONTRAST REASON FOR EXAM: Female, 33 years old. LOW ABDOMEN AND PELVIC Pain, painful URINATION X 1 WEEK,PT HAS IUD RADIATION DOSAGE (If Supplied By Facility): CTDIvol = ( 12.66 ) mGy, DLP = ( 622.29 ) mGycm TECHNIQUE: Transaxial images were obtained from the dome of the diaphragm to the symphysis pubis without oral contrast. IV 100mL Isovue-300 was administered. Sagittal and coronal images were reconstructed. Individualized dose optimization techniques were used for this CT. COMPARISON: Previous CT scan 01/05/2012, pelvic ultrasound earlier today.. FINDINGS: The visualized lung bases are unremarkable. The visualized portions of the heart are within normal limits. Normal liver with a 1.2 cm cyst of the posterior segment of the right lobe. Normal gallbladder and extrahepatic biliary system. Normal spleen. Normal pancreas. Normal bilateral adrenal glands. Normal right kidney. Normal left kidney. Evaluation of the GI tract is limited by absence of oral contrast. Cannot exclude stomach wall thickening. No dilated loops of bowel or evidence for obstruction. Cannot exclude segmental thickening of the smith of the small or large bowel. Cannot exclude enteritis or colitis. Moderate diffuse fecal retention. Appendix within normal limits. There is moderate ascites in all quadrants, over the surface of the liver and spleen, down both paracolic gutters and pooling in the pelvis. In the pelvis there are a few areas of more focal higher density which could be hematoma. This could account for the mass seen on the right on ultrasound. Normal position and appearance of the uterus but the IUD appears to be an abnormal appearance, lying horizontally across the fundus. Irregular enhancing 3.2 cm cystic mass of the left ovary with adjacent areas of contrast blush. Findings could represent a ruptured hemorrhagic cyst. Normal abdominal aorta. Normal inferior vena cava. Normal retroperitoneum. Normal urinary bladder. Normal abdominal wall. Normal osseous structures. CT/Abdomen/Pelvis W IV Cont ONLY IMPRESSION: Moderate free fluid in all quadrants, and possibly hematomas in the pelvis. Suspicion of ruptured hemorrhagic cyst of the left ovary possibly with active bleeding. Abnormal appearance of the IUD in the fundus of the uterus. Electronically Signed: Chandrakant Porras MD at 18:53 EST , Service support ,
[2019-02-06] MEDS: 0.9% Normal Saline 1,000 ML 999 ML IV (18:35)
--- NOTE | 2019-02-06 19:24 | HP.PCM_ITS ---
Problem List (1) Hemoperitoneum Status: Acute History of Present Illness Date of Admission: 02/06/19 Chief Complaint: Abdominal pain The patient is a 33 year old F 3 para 2-0-1-2 who presents the ER with complaint of acute onset abdominal pain following intercourse with lightheadedness. Pain initially was suprapubic and now extending across all of belly. Pain 9/10. Also reports shoulder pain. Denies vaginal bleeding. Michelle has a Liletta IUD in situ placed approximately 6 months ago. She has amenorrhea with IUD and has had no prior complaints regarding IUD. She has a history of a right oophorectomy due to a benign ovarian cyst. 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 Breast cyst N60.09 Heart murmur R01.1 History of vaginal delivery 2005, 2007 Hypocalcemia E83.51 Hypoglycemia E16.2 PFO (patent foramen ovale) Q21.1 Allergies doxycycline Allergy (Severe, Verified 02/06/19 15:41) Unknown Penicillins Allergy (Severe, Verified 02/06/19 15:41) Unknown piperacillin sodium [From Zosyn] Allergy (Severe, Verified 02/06/19 15:41) Anaphylaxis tazobactam sodium [From Zosyn] Allergy (Severe, Verified 02/06/19 15:41) Anaphylaxis vancomycin Allergy (Severe, Verified 02/06/19 15:41) Unknown bee pollen [Bee Pollen] Allergy (Mild, Verified 02/06/19 15:41) Swelling tramadol Adverse Reaction (Severe, Verified 02/06/19 15:41) Nausea/Vom/Diarrhea Home Medications: Ambulatory Orders Medication Instructions Recorded spironolactone 100 mg tablet 100 mg PO DAILY 90 Days #90 07/13/17 tocilizumab 162 mg/0.9 mL 162 mg SC QWEEK 28 Days #4 07/13/17 subcutaneous syringe levonorgestrel 1 device INTRAUTERINE ONCE 08/13/18 calcium carbonate 600 mg calcium 600 mg PO BID 12/08/18 (1,500 mg) tablet cholecalciferol (vitamin D3) 50 2,000 unit PO DAILY 12/08/18 mcg (2,000 unit) capsule Bupropion HCl [Bupropion Xl] 300 mg PO QAM 01/16/19 meclizine 25 mg tablet 25 mg PO BID-TID PRN #30 tab 01/21/19 Albuterol Inhaler [Ventolin Hfa] 90 mcg INHALATION Q6H PRN PRN 02/06/19 Albuterol Sulfate [Albuterol 02/06/19 Sulfate Hfa] Surgical History: Surgical History (Last Reviewed 02/03/19 @ 14:51 by Rebeca Bright) History of right oophorectomy Z90.721 2018 Hx of appendectomy Z90.49 Surgical History: appendectomy, - - R. oophorectomy Psychiatric History: No pertinent psych hx [employer] History: ovarian cysts - Mirena IUD, - - x 2, SAB x 1 Smoking Status: Light Smoker (<10/day) Tobacco Use: Cigarettes Alcohol: None Drugs: None - *Family History Maternal Family History: Family History (Last Reviewed 02/03/19 @ 14:51 by Rebeca Bright) Grandmother Cancer Arthritis Mother Arthritis Depression History Items: - - Her mother has COPD Review of Systems Constitutional: Reports: Weakness. Denies: Fever HEENT: Reports: Head Aches Cardiovascular: Reports: Chest Tightness, Light Headedness. Denies: Chest Pain, Palpitations Respiratory: Denies: Shortness of Breath Gastrointestinal: Reports: Abdominal Pain, Nausea. Denies: Constipation, Diarrhea, Hematochezia, Vomiting Genitourinary: Reports: Dysuria Musculoskeletal: Reports: Shoulder Pain VTE Information - Inpt Only VTE Present on Admission: No VTE Mechan Device Prophylaxis: SCD's VTE Pharm Prophylaxis ordered?: No Patient Problems: Active and Suspected Problems (Last Updated 02/06/19 @ 19:26 by Alejandra Navarrete MD) Hemoperitoneum (Acute) Subjective: see hpi - Physical Exam Vitals/I&O's: Vital Signs Temp Pulse Resp BP Pulse Ox 97.7 F L 85 16 99/57 L 99 02/06/19 15:37 02/06/19 18:53 02/06/19 18:53 02/06/19 18:53 02/06/19 18:53 Oxygen Delivery Method Room Air Weight: 75 kg Body Mass Index (BMI) 25.9 General: Alert, Oriented x3, Cooperative, No apparent distress HEENT: Atraumatic, Normocephalic Lungs: Normal air movement Cardiovascular: Regular rate, Regular Rhythm Abdomen: Soft, Non-Distended, Guarding, - - no rebound tenderness Extremities: No edema, No Calf Tenderness Neurological: Neuro grossly intact Psych/Mental Status: Normal Affect, Appropriate, Alert and oriented to time, place, person, mood and affect Laboratory Results 02/06/19 15:49: WBC 5.8, RBC 4.81, Hgb 14.6, Hct 42.3, MCV 87.9, MCH 30.4, MCHC 34.5, RDW Std Deviation 40.1, RDW Coeff of Keiko 12.4, Plt Count 149 L, MPV 10.3, Immature Gran % (Auto) 0.200, Neut % (Auto) 74.3 H, Lymph % (Auto) 16.4 L, Page % (Auto) 5.2, Eos % (Auto) 3.6, Baso % (Auto) 0.3, Absolute Neuts (auto) 4.3, Absolute Lymphs (auto) 0.95, Nucleated RBC % 0 02/06/19 15:49: Sodium 141, Potassium 4.2, Chloride 112 H, Carbon Dioxide 24.0, Anion Gap 5, BUN 11, Creatinine 0.85, Estim Creat Clear Calc 90.69, Est GFR (MDRD) Af Amer 99, Est GFR (MDRD) Non-Af 82, BUN/Creatinine Ratio 13.0, Glucose 94, Calcium 8.5, Total Bilirubin 0.70, AST 15, ALT 17, Alkaline Phosphatase 38 L , Total Protein 6.8, Albumin 3.9, Globulin 2.9, Albumin/Globulin Ratio 1.3, Lipase 253 02/06/19 15:49: Serum , Qual NEGATIVE 02/06/19 17:10: Urine Color Yellow, Urine Clarity Cloudy, Urine pH 5.0, Ur Specific [place] 1.015, Urine Protein 15 H, Urine Glucose (UA) Normal, Urine Ketones 5 H, Urine Occult Blood 25 H, Urine Nitrite Negative, Urine Bilirubin Negative, Urine Urobilinogen Normal, Ur Leukocyte Esterase 500 H, Urine RBC 0 SEEN, Urine WBC 10-25 SEEN, Ur Squamous Epith Cells 0 SEEN, Urine Bacteria RARE, Urine Mucus 0 SEEN 02/06/19 18:36: Blood Type Pending, Antibody Screen Pending, Crossmatch See Detail Assessment/Plan All Active Problems (Last Updated 02/06/19 @ 19:26 by Alejandra Carlson MD) Fever (Resolved) Cephalalgia (Acute) Nausea & vomiting (Resolved) Urinary tract infection (Resolved) Leukopenia (Acute) Hemoperitoneum (Acute) 33yo with lightheadedness, hemoperitoneum suspicious for ruptured hemorrhagic ovarian cyst vs. IUD perforation. -Advised diagnostic laparoscopy. Reviewed with patient potential etiology, may require ovarian cystectomy, R. oophorectomy or possible hysterectomy if uterine perforation present. Procedural risks including but not limited to pain, blee ding, scarring, infection, injury to abdominal viscus or vasculature, need for laparotomy, further surgery, possible infertility. Patient reports understanding. Questions answered to her satisfaction and blood transfusion acceptable. -Consents signed and reviewed
[2019-02-06] MEDS: Morphine 4 MG/ML Syringe IV (20:38)
[2019-02-06] MEDS: metroNIDAZOLE 500 MG/100 ML BAG 100 MG IV (21:20)
[2019-02-06 21:34] LABS: Absolute Lymphocyte Count 0.51 X10^3/uL (0.83-4.51); Absolute Neutrophil Count 5.2 X10^3/uL (2.0-7.7); Basophil# 0.02 X10^3/uL; Basophil% 0.3 % (0-1); Eosinophil# 0.04 X10^3/uL; Eosinophils% 0.7 % (0-5); Hematocrit 32.6 % (37-47); Hemoglobin 11.3 g/dL (12.0-15.0); Lymphocyte # 0.51 X10^3/ul (4.0); Lymphocyte % 8.6 % (19-41); Mean Corp Hgb Conc 34.7 g/dL (32-36); Mean Corpuscular Hgb 30.6 pg (27.0-32.0); Mean Corpuscular Volume 88.3 fL (81-99); Mean Platelet Vol. 10.3 fl (6.2-12.0); Monocyte# 0.19 X10^3/uL; Monocyte% 3.2 % (0-10); NRBC Flagged by Analyzer 0 % (0-5); Neutrophil # 5.15 X10^3/uL (2.7-7.7); Neutrophil % 86.7 % (47-70); POSITIVE COUNT YES; POSITIVE DIFFERENTIAL YES; Platelet Count 100 K/mm3 (150-450); RBC Distribution Width CV 12.5 % (11.6-14.6); RBC Distribution Width SD 40.1 fl (35.1-43.9); Red Blood Count 3.69 M/mm3 (4.2-5.4); White Blood Count 5.9 K/mm3 (4.4-11.0)
[2019-02-06 21:40] LABS: Differential Indicated SCAN CRITERIA MET
[2019-02-06] MEDS: Ciprofloxacin 400 MG/200 ML BAG 200 MG IV (21:40)
[2019-02-06] MEDS: Bupivacaine Mpf 0.5% 30 ML VIAL (21:40)
[2019-02-06 21:52] LABS: Differential Comment SCANNED
--- NOTE | 2019-02-06 22:29 | OP.PCM_ITS ---
Problem List (1) Hemoperitoneum Status: Acute Report of Operation Date of Procedure: 02/06/19 Pre-Operative Diagnosis: Hemoperitoneum Post-Operative Diagnosis: Ruptured hemorrhagic left ovarian cyst, hemoperitoneum Surgery/Procedure Performed:: Diagnostic laparoscopy, evacuation of hemoperitoneum Description of Surgical Findings:: Left ovarian hemorrhagic cyst Right ovary surgically absent Normal appearing tubes and uterus IUD in situ, strings at 1.5cm from external cervical os 1L hemoperitoneum assistant professor of biology: Kristen Vital Type of Anesthesia:: General Anesthesiologist: Christopher Fletcher Specimen's removed: none Estimated Blood Loss (mL): 1000 Fluids Replaced: 1100 ml Description of Procedure: Indications: This is a 33-year-old 3 para 2-0-1-2 admitted with pneumoperitoneum from suspected ruptured hemorrhagic left ovarian cyst. She did have an IUD in situ was possible uterine perforation was of concern the differential. She was advised to proceed with diagnostic laparoscopy and we reviewed the potential for left nephrectomy for possible hysterectomy. Procedural risks, benefits, indications and alternatives were reviewed. Consents were signed. Procedure: The patient was brought to the operating room and placed in dorsal supine position and induced under general anesthesia and intubated. She was then placed into dorsolithotomy and examination under anesthesia performed. Her arms were tucked at her sides. The perineum and abdomen were prepped and draped in sterile fashion. Root catheter was placed in the bladder. The weighted speculum placed into the vagina and the cervix grasped the anterior cervical lip using a single-tooth tenaculum. IUD strings were visualized at appropriate length. The uterus sounded to 9 cm and a ZUMI uterine manipulator was placed and secured. The tenaculum was removed from the cervix and the tenaculum site was hemostatic. The patient was placed into low lithotomy attention turned to the abdomen. Half percent Marcaine was injected at the inferior umbilicus. An incision was made at the same site and a Veress needle placed. There was a no aspirate however hanging drop test was unsuccessful. The Veress needle was removed and the abdomen was entered laparoscopically using the port with obturator. The abdomen was insufflated to 15 mmHg. In similar fashion a tap block was performed in the right and left lower quadrants under laparoscopic guidance and an incision was made and 5 mm port subsequently placed at the sites. The abdomen and pelvis were inspected demonstrating abundant hemoperitoneum of the pelvis. The hemoperitoneum was evacuated and the patient was then placed into Trendelenburg. Inspection of the pelvis the right ovary was absent the left ovary did appear to have a hemorrhagic ovarian cyst with continued bleeding. No evidence of uterine perforation. the edges of the ovarian corpus and cyst were electrocoagulated using the monopolar energy. FloSeal was placed within this site and hemostasis obtained. The patient was then placed into reverse Trendelenburg and further blood was evacuated using the action aspirator. The patient was then placed into Trendelenburg and the left ovary again inspected with good hemostasis. Interceed was placed over the rupture site. The patient was then flattened, the abdomen desufflated and trochars removed. The skin was closed using 4-0 Monocryl. Steri-Strips and OpSite were placed over the incisional sites. The Root catheter was removed as was the ZUMI uterine manipulator. The patient was placed into the dorsal supine position, arms untucked, awakened, extubated and transferred to the recovery room without complication. Sponge and needle counts were correct x2. The patient tolerated the procedure well. - Complications None - Admit VTE Documentation VTE Present on Admission: No VTE Mechan Device Prophylaxis: SCD's VTE Pharm Prophylaxis ordered?: No
--- NOTE | 2019-02-06 22:46 | PCM.DC ---
- Discharge Diagnoses Current Active Problems: Current Active and Chronic Problems (Last Updated 02/06/19 @ 19:26 by Alejandra Carlson MD) Hemoperitoneum (Acute) Reason(s) for Visit for Discharge Instructions: Ruptured hemorrhagic ovarian cyst You will use the following diet at home:: No restrictions Your food should be the consistency of: Regular Discharge Activity: Return to Normal Activity, May not drive while taking narcotic pain medications., May Shower, - - No tub bath for 1 week May resume sexual activity in: 4 weeks Lifting Restrictions: 10-20 lb Call your doctor if you observe: Fever of 101 or Higher, Inability to urinate, Inability to have a bowel movement, Using more than one pad per hour, Shortness of breath, Chest pain, Calf discomfort, Uncontrolled pain Suture Line Care: Avoid Pulling/Pushing Remove Dressing in (days):: 1 Cleanse incision/area with: Soap & Water Allergies/Adverse Reactions: Allergies doxycycline Allergy (Severe, Verified 02/06/19 15:41) Unknown Penicillins Allergy (Severe, Verified 02/06/19 15:41) Unknown piperacillin sodium [From Zosyn] Allergy (Severe, Verified 02/06/19 15:41) Anaphylaxis tazobactam sodium [From Zosyn] Allergy (Severe, Verified 02/06/19 15:41) Anaphylaxis vancomycin Allergy (Severe, Verified 02/06/19 15:41) Unknown bee pollen [Bee Pollen] Allergy (Mild, Verified 02/06/19 15:41) Swelling tramadol Adverse Reaction (Severe, Verified 02/06/19 15:41) Nausea/Vom/Diarrhea Medications to take at Discharge spironolactone 100 mg tablet 100 mg PO DAILY 90 Days #90 07/13/17 tocilizumab 162 mg/0.9 mL subcutaneous syringe 162 mg SC QWEEK 28 Days #4 07/13/17 levonorgestrel 1 device INTRAUTERINE ONCE 08/13/18 calcium carbonate 600 mg calcium (1,500 mg) tablet 600 mg PO BID 12/08/18 cholecalciferol (vitamin D3) 50 mcg (2,000 unit) capsule 2,000 unit PO DAILY 12/08/18 Bupropion HCl [Bupropion Xl] 300 mg PO QAM 01/16/19 meclizine 25 mg tablet 25 mg PO BID-TID PRN #30 tab 01/21/19 Albuterol Inhaler [Ventolin Hfa] 90 mcg INHALATION Q6H PRN PRN 02/06/19 Albuterol Sulfate [Albuterol Sulfate Hfa] 02/06/19 Primary Care Physician: Becky Gallardo MD [Primary Care Provider] - Test Results: Test results from this visit will be discussed in further detail at your follow-up appointment, if applicable. Please Follow Up With: Alejandra Carlson MD When: 2 weeks
[2019-02-06] MEDS: Lactated Ringers 1,000 ML 100 ML IV (23:34)
[2019-02-07] VITALS (10 sets, daily range): BP systolic 95–129; BP diastolic 42–76; PULSE 73–98; RESP 16–18; TEMP 36.8–37.9; O2SAT 96–100
[2019-02-07] MEDS: Dextrose 5%-Lactated Ringers 1,000 ML 125 ML IV (01:06)
[2019-02-07] MEDS: Ketorolac 30 MG/ML Syringe IV ×2 (01:07→05:54)
[2019-02-07 05:54] LABS: Hematocrit 29.2 % (37-47); Mean Corp Hgb Conc 34.2 g/dL (32-36); Mean Corpuscular Hgb 30.1 pg (27.0-32.0); POSITIVE COUNT YES; Platelet Count 96 K/mm3 (150-450); RBC Distribution Width CV 12.8 % (11.6-14.6); RBC Distribution Width SD 41.3 fl (35.1-43.9); Red Blood Count 3.32 M/mm3 (4.2-5.4); White Blood Count 4.2 K/mm3 (4.4-11.0)
[2019-02-07 06:14] LABS: EST Glomerular Filtration Rate 121 mL/min (>60); Est Glom Filt Rate - Afr Amer 146 mL/min (>60); Estimated Creatinine Clearance 132.44 ml/min
[2019-02-07] MEDS: oxyCODONE 5 MG Tablet PO ×3 (06:49→18:56)
--- NOTE | 2019-02-07 08:15 | PN.OBGYN_ITS ---
Patient Problems: Active and Suspected Problems (Last Updated 02/06/19 @ 19:26 by Alejandra Navarrete MD) Hemoperitoneum (Acute) Subjective: Reports decreased appetite with nausea this morning. No flatus yet. Not yet out of bed. Reports dizziness, but she notes she has experienced this off and on for the last month and is currently having a work up. Denies chest pain, shortness of breath. She has right shoulder pain. Abdominal pain increased this morning, now improved after oxycodone. She has not yet voided. Objective: AVSS - Physical Exam Vitals/I&O's: Vital Signs Temp Pulse Resp BP Pulse Ox 98.7 F 96 18 95/42 L 97 02/07/19 04:09 02/07/19 04:09 02/07/19 04:09 02/07/19 05:32 02/07/19 07:11 Oxygen Delivery Method Room Air Weight: 63.503 kg Body Mass Index (BMI) 21.2 Intake and Output for Last 24 Hours 02/05/19 02/06/19 02/07/19 23:59 23:59 23:59 Intake Total 2300 / 2300 0 / 0 Output Total 200 / 200 0 / 0 Balance 2100 / 2100 0 / 0 General: Alert, Oriented x3, Cooperative, No apparent distress HEENT: Atraumatic, Normocephalic Lungs: Clear to auscultation, Normal air movement Cardiovascular: Regular rate, Regular Rhythm, Normal S1, Normal S2 Abdomen: Soft, Non Tender, Non-Distended Extremities: No edema, No Calf Tenderness Neurological: Neuro grossly intact Psych/Mental Status: Normal Affect, Appropriate, Alert and oriented to time, place, person, mood and affect Laboratory Results 02/06/19 15:49: WBC 5.8, RBC 4.81, Hgb 14.6, Hct 42.3, MCV 87.9, MCH 30.4, MCHC 34.5, RDW Std Deviation 40.1, RDW Coeff of Kie[place] 12.4, Plt Count 149 L, MPV 10.3, Immature Gran % (Auto) 0.200, Neut % (Auto) 74.3 H, Lymph % (Auto) 16.4 L, [place] % (Auto) 5.2, Eos % (Auto) 3.6, Baso % (Auto) 0.3, Absolute Neuts (auto) 4.3, Absolute Lymphs (auto) 0.95, Nucleated RBC % 0 02/06/19 15:49: Sodium 141, Potassium 4.2, Chloride 112 H, Carbon Dioxide 24.0, Anion Gap 5, BUN 11, Creatinine 0.85, Estim Creat Clear Calc 90.69, Est GFR (MDRD) Af Amer 99, Est GFR (MDRD) Non-Af 82, BUN/Creatinine Ratio 13.0, Glucose 94, Calcium 8.5, Total Bilirubin 0.70, AST 15, ALT 17, Alkaline Phosphatase 38 L , Total Protein 6.8, Albumin 3.9, Globulin 2.9, Albumin/Globulin Ratio 1.3, Lipase 253 02/06/19 15:49: Serum , Qual NEGATIVE 02/06/19 17:10: Urine Color Yellow, Urine Clarity Cloudy, Urine pH 5.0, Ur Specific [place] 1.015, Urine Protein 15 H, Urine Glucose (UA) Normal, Urine Ketones 5 H, Urine Occult Blood 25 H, Urine Nitrite Negative, Urine Bilirubin Negative, Urine Urobilinogen Normal, Ur Leukocyte Esterase 500 H, Urine RBC 0 SEEN, Urine WBC 10-25 SEEN, Ur Squamous Epith Cells 0 SEEN, Urine Bacteria RARE, Urine Mucus 0 SEEN 02/06/19 18:36: Blood Type B POSITIVE, Antibody Screen NEGATIVE, Crossmatch See Detail 02/06/19 21:20: WBC 5.9, RBC 3.69 L, Hgb 11.3 L, Hct 32.6 L, MCV 88.3, MCH 30.6, MCHC 34.7, RDW Std Deviation 40.1, RDW Coeff of Keiko 12.5, Plt Count 100 L, MPV 10.3, Immature Gran % (Auto) 0.500, Neut % (Auto) 86.7 H, Lymph % (Auto) 8.6 L, [place] % (Auto) 3.2, Eos % (Auto) 0.7, Baso % (Auto) 0.3, Absolute Neuts (auto) 5.2, Absolute Lymphs (auto) 0.51 L, Nucleated RBC % 0, Differential Comment SCANNED 02/07/19 05:25: WBC 4.2 L, RBC 3.32 L, Hgb 10.0 L, Hct 29.2 L, MCV 88.0, MCH 30.1, MCHC 34.2, RDW Std Deviation 41.3, RDW Coeff of Keiko 12.8, Plt Count 96 L, MPV 10.0 02/07/19 05:25: Creatinine 0.60, Estim Creat Clear Calc 132.44, Est GFR (MDRD) Af Amer 146, Est GFR (MDRD) Non-Af 121 Current Medications Acetaminophen (Tylenol) 1,000 mg PO Q8H PRN PRN PRN Reason: Pain Score 1-10/10 or Fever Bupropion HCl (Wellbutrin Xl) 300 mg PO QAM [facility] Hydromorphone HCl (Dilaudid Inj) 0.5 - 1 mg IV Q3H PRN PRN PRN Reason: Pain Score 4-10/10 Dextrose/Lactated Ringer's () 1,000 mls @ 125 mls/hr IV .Q8H [facility] Last Admin: 02/07/19 01:06 Dose: 125 mls/hr Documented by: Ketorolac Tromethamine (Toradol) 30 mg IV Q6H [facility] Stop: 02/12/19 00:19 Last Admin: 02/07/19 05:54 Dose: 30 mg Documented by: Meclizine HCl (Antivert) 25 mg PO TID PRN PRN PRN Reason: dizziness Nutritional Formula (Lactose Free) (Ensure Enlive) 120 ml PO 4X/DAY [facility] Ondansetron HCl (Zofran) 4 mg IV Q4H PRN PRN PRN Reason: NAUSEA Oxycodone HCl (Oxyir) 5 - 10 mg PO Q4H PRN PRN PRN Reason: Pain Score 4-10/10 Last Admin: 02/07/19 06:49 Dose: 10 mg Documented by: Medical Necessity - Tobacco Use Smoking Status: Light Smoker (<10/day) Tobacco Use: Cigarettes Assessment/Plan All Active Problems (Last Updated 02/06/19 @ 19:26 by Alejandra Carlson MD) Fever (Resolved) Cephalalgia (Acute) Nausea & vomiting (Resolved) Urinary tract infection (Resolved) Leukopenia (Acute) Hemoperitoneum (Acute) 33yo POD#1 s/p diagnostic laparoscopy for ruptured hemorrhagic ovarian cyst. -Straight cath, repeat voiding trial. -Regular diet -Meclizine for dizziness -s/p 1u prbc, hgb 10 -Routine postop care -OOB today
[2019-02-07] MEDS: Meclizine HCl 25 MG Tablet PO ×3 (08:33→19:48)
[2019-02-07] MEDS: buPROPion (XL) 300 MG TABLET.XL PO (08:34)
--- NOTE | 2019-02-07 10:20 | CASEMGMT ---
RN CM Face to Face with patient for initial transition planning/care coordination assessment. RN CM introduced self and role at [facility]. Patient lying in bed, alert and oriented, boyfriend at bedside. Patient willing to participate in assessment and is able to answer all questions appropriately. Care providers, pharmacy, and demographics verified. Patient wishes to discharge home, denies need for home health at this time. Patient states she has no further needs or concerns at this time. CM to follow for discharge planning needs that may arise. PCP: Paulina Specialists: Vivi neurologist; Cristina, braille coder [facility]acy[facility] Insurance: [employer] Prescription Benefit: yes Living Will/HPOA: none LNOK: parents, boyfriend Living Arrangements: Patient lives at home with 2 children who are 12 and 13yo. Patient lives in 2 story home and is independent at home. Transportation: self, friend DME/HHC: Patient denies need for DME or HHC Disposition Plan: Patient to discharge home with family support and follow-up plans in place. Mercy VIZCAINON, RN, CM
[2019-02-07] MEDS: Ondansetron 4 MG/2 ML Vial IV ×2 (11:31→15:09)
[2019-02-07] MEDS: 0.9% Saline Lock 10 ML Syringe IV ×2 (11:31→15:09)
[2019-02-07] MEDS: Ketorolac 10 MG Tablet PO ×3 (13:04→23:59)
[2019-02-07 16:46] LABS: Absolute Lymphocyte Count 0.71 X10^3/uL (0.83-4.51); Absolute Neutrophil Count 1.1 X10^3/uL (2.0-7.7); Basophil# 0.01 X10^3/uL; Basophil% 0.5 % (0-1); Eosinophil# 0.03 X10^3/uL; Eosinophils% 1.4 % (0-5); Hematocrit 29.3 % (37-47); Hemoglobin 10.1 g/dL (12.0-15.0); Lymphocyte # 0.71 X10^3/ul (4.0); Mean Corp Hgb Conc 34.5 g/dL (32-36); Mean Corpuscular Hgb 30.5 pg (27.0-32.0); Mean Corpuscular Volume 88.5 fL (81-99); Mean Platelet Vol. 9.7 fl (6.2-12.0); Monocyte# 0.27 X10^3/uL; Monocyte% 12.6 % (0-10); NRBC Flagged by Analyzer 0 % (0-5); Neutrophil # 1.11 X10^3/uL (2.7-7.7); Neutrophil % 51.6 % (47-70); POSITIVE COUNT YES; POSITIVE MORPHOLOGY YES; Platelet Count 93 K/mm3 (150-450); RBC Distribution Width CV 12.9 % (11.6-14.6); RBC Distribution Width SD 41.4 fl (35.1-43.9); Red Blood Count 3.31 M/mm3 (4.2-5.4); White Blood Count 2.2 K/mm3 (4.4-11.0)
[2019-02-07 17:05] LABS: Differential Indicated SCAN CRITERIA MET
[2019-02-07] MEDS: Ensure Clear 120 ML Liquid PO ×2 (18:15→19:53)
--- NOTE | 2019-02-07 18:17 | PN.OBGYN_ITS ---
Patient Problems: Active and Suspected Problems (Last Updated 02/06/19 @ 19:26 by Alejandra Navarrete MD) Hemoperitoneum (Acute) Subjective: Out of bed x 1 today with dizziness and had to get back into bed. She does not feel better with Meclizine although that has improved her symptoms previously. +fagitue. Nausea improved with Zofran. c/o decreased appetite, did tolerate broth this afternoon. Declined to eat regular diet. Abdominal pain improved with churchill catheter replaced, pain controlled overall with oxycodone when she takes it. Passing flatus. No bowel movement yet. She denies palpitations, chest pain, shortness of breath. - Physical Exam Vitals/I&O's: Vital Signs Temp Pulse Resp BP Pulse Ox 99.0 F 80 16 117/64 99 02/07/19 15:15 02/07/19 15:15 02/07/19 15:15 02/07/19 15:15 02/07/19 15:15 Oxygen Delivery Method Room Air Weight: 63.503 kg Body Mass Index (BMI) 21.2 Intake and Output for Last 24 Hours 02/05/19 02/06/19 02/07/19 23:59 23:59 23:59 Intake Total 2300 / 2300 1243.75 / 1243.75 Output Total 200 / 200 500 / 500 Balance 2100 / 2100 743.75 / 743.75 General: Alert, Oriented x3, Cooperative, No apparent distress HEENT: Atraumatic, Normocephalic Lungs: Normal air movement Abdomen: Soft, Non Tender, Non-Distended Extremities: No edema, No Calf Tenderness Laboratory Results 02/06/19 18:36: Blood Type B POSITIVE, Antibody Screen NEGATIVE, Crossmatch See Detail 02/06/19 21:20: WBC 5.9, RBC 3.69 L, Hgb 11.3 L, Hct 32.6 L, MCV 88.3, MCH 30.6, MCHC 34.7, RDW Std Deviation 40.1, RDW Coeff of Keiko 12.5, Plt Count 100 L, MPV 10.3, Immature Gran % (Auto) 0.500, Neut % (Auto) 86.7 H, Lymph % (Auto) 8.6 L, [place] % (Auto) 3.2, Eos % (Auto) 0.7, Baso % (Auto) 0.3, Absolute Neuts (auto) 5.2, Absolute Lymphs (auto) 0.51 L, Nucleated RBC % 0, Differential Comment SCANNED 02/07/19 05:25: WBC 4.2 L, RBC 3.32 L, Hgb 10.0 L, Hct 29.2 L, MCV 88.0, MCH 30.1, MCHC 34.2, RDW Std Deviation 41.3, RDW Coeff of Keiko 12.8, Plt Count 96 L, MPV 10.0 02/07/19 05:25: Creatinine 0.60, Estim Creat Clear Calc 132.44, Est GFR (MDRD) Af Amer 146, Est GFR (MDRD) Non-Af 121 02/07/19 16:15: WBC 2.2 L, RBC 3.31 L, Hgb 10.1 L, Hct 29.3 L, MCV 88.5, MCH 30.5, MCHC 34.5, RDW Std Deviation 41.4, RDW Coeff of Keiko 12.9, Plt Count 93 L, MPV 9.7, Immature Gran % (Auto) 0.900, Neut % (Auto) 51.6, Lymph % (Auto) 33.0, [place] % (Auto) 12.6 H, Eos % (Auto) 1.4, Baso % (Auto) 0.5, Absolute Neuts (auto) 1.1 L, Absolute Lymphs (auto) 0.71 L, Nucleated RBC % 0 Current Medications Acetaminophen (Tylenol) 1,000 mg PO Q8H PRN PRN PRN Reason: Pain Score 1-10/10 or Fever Bupropion HCl (Wellbutrin Xl) 300 mg PO QAM [facility] Last Admin: 02/07/19 08:34 Dose: 300 mg Documented by: Hydromorphone HCl (Dilaudid Inj) 0.5 - 1 mg IV Q3H PRN PRN PRN Reason: Pain Score 4-10/10 Ketorolac Tromethamine (Toradol) 10 mg PO Q6 [facility] Stop: 02/12/19 11:24 Last Admin: 02/07/19 18:15 Dose: 10 mg Documented by: Meclizine HCl (Antivert) 25 mg PO TID [facility] Nutritional Formula (Lactose Free) (Ensure Clear) 120 ml PO 4X/DAY [facility] Last Admin: 02/07/19 18:15 Dose: 120 ml Documented by: Ondansetron HCl (Zofran) 4 mg IV Q4H PRN PRN PRN Reason: NAUSEA Last Admin: 02/07/19 15:09 Dose: 4 mg Documented by: Oxycodone HCl (Oxyir) 5 - 10 mg PO Q4H PRN PRN PRN Reason: Pain Score 4-10/10 Last Admin: 02/07/19 11:30 Dose: 10 mg Documented by: Sodium Chloride () 10 - 40 ml IV UD PRN PRN Reason: SALINE FLUSH Last Admin: 02/07/19 15:09 Dose: 10 ml Documented by: Medical Necessity - Tobacco Use Smoking Status: Light Smoker (<10/day) Tobacco Use: Cigarettes Assessment/Plan All Active Problems (Last Updated 02/06/19 @ 19:26 by Alejandra Carlson MD) Fever (Resolved) Cephalalgia (Acute) Nausea & vomiting (Resolved) Urinary tract infection (Resolved) Leukopenia (Acute) Hemoperitoneum (Acute) 33yo POD#1 s/p diagnostic laparoscopy for ruptured hemorrhagic ovarian cyst s/p 1 U [facility], stable H/H with persistent dizziness -Urinary retention - churchill catheter placed - voiding trial in am -Dizziness - Hospitalist consultation ordered, continue Meclizine prn --> around the clock. Orthostatics. -Routine postop care -Lovenox for DVT ppx
[2019-02-07 18:43] LABS: Platelet Estimate MOD DEC (ADEQ)
--- NOTE | 2019-02-07 19:31 | PN_ITS ---
Patient Problems: Active and Suspected Problems (Last Updated 02/06/19 @ 19:26 by Alejandra Navarrete MD) Hemoperitoneum (Acute) Subjective: 33-year-old female who presented to the hospital for acute onset abdominal pain and lightheadedness. Because of her history she underwent a diagnostic laparoscopy and was found to have hemoperitoneum from a hemorrhagic left ovarian cyst. Her hemoglobin has been monitored by OB and appears to have been stabilized, however she has been talking about having significant dizziness and vertigo for the last 1 to 2 months. 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 She says that her facial droop has since resolved however she has right-sided numbness as well as a blind spot in her right eye and decreased hearing in her right ear as well. She is not had any outpatient imaging done, she was on steroids for the Renteria palsy which does not seem to have done anything for the other symptoms. She is scheduled to see neurology as an outpatient on February 21. 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 She saw an health insurance sales agent who thought that it was a cranial nerve issue and referred her to a neuro health insurance sales agent. She states that the dizziness can be so severe that she could fall into the wall, she has to occasionally hold herself up because of how significant it can be. Her grades have suffered because she has been so dizzy that she has not been able to read effectively for tests. She also has to lay down periodically throughout the day to relieve her symptoms. Vitals/I&O's: Vital Signs Temp Pulse Resp BP Pulse Ox 99.0 F 80 16 117/64 99 02/07/19 15:15 02/07/19 15:15 02/07/19 15:15 02/07/19 15:15 02/07/19 15:15 Oxygen Delivery Method Room Air Weight: 140 lb Body Mass Index (BMI) 21.2 Intake and Output for Last 24 Hours 02/05/19 02/06/19 02/07/19 23:59 23:59 23:59 Intake Total 2300 / 2300 1593.75 / 1593.75 Output Total 200 / 200 900 / 900 Balance 2099 / 2099 693.75 / 693.75 General: Alert, Oriented x3, Cooperative, No apparent distress HEENT: Atraumatic, PERRLA, EOMI, Normocephalic Oral: Dry Mucosa Neck: Supple, No JVD Lungs: Clear to auscultation, Normal air movement, No rhonchi, No wheeze, No rales Cardiovascular: Regular rate, Regular Rhythm, Normal S1, Normal S2, No murmurs Abdomen: Soft, Non Tender, Non-Distended, No Hepato-splenomegaly Extremities: No edema, Capillary Refill Less than 3 Seconds Skin: No rashes, No breakdown Neurological: Cranial nerves II-XII grossly intact, - - No facial droop, face is symmetric, however significant decrease in sensation on the right side of her face compared to her left. No tongue deviation or slurred speech Psych/Mental Status: Normal Affect, Appropriate Laboratory Results 02/06/19 18:36: Blood Type B POSITIVE, Antibody Screen NEGATIVE, Crossmatch See Detail 02/06/19 21:20: WBC 5.9, RBC 3.69 L, Hgb 11.3 L, Hct 32.6 L, MCV 88.3, MCH 30.6, MCHC 34.7, RDW Std Deviation 40.1, RDW Coeff of Keiko 12.5, Plt Count 100 L, MPV 10.3, Immature Gran % (Auto) 0.500, Neut % (Auto) 86.7 H, Lymph % (Auto) 8.6 L, [place] % (Auto) 3.2, Eos % (Auto) 0.7, Baso % (Auto) 0.3, Absolute Neuts (auto) 5.2, Absolute Lymphs (auto) 0.51 L, Nucleated RBC % 0, Differential Comment SCANNED 02/07/19 05:25: WBC 4.2 L, RBC 3.32 L, Hgb 10.0 L, Hct 29.2 L, MCV 88.0, MCH 30.1, MCHC 34.2, RDW Std Deviation 41.3, RDW Coeff of Keiko 12.8, Plt Count 96 L, MPV 10.0 02/07/19 05:25: Creatinine 0.60, Estim Creat Clear Calc 132.44, Est GFR (MDRD) Af Amer 146, Est GFR (MDRD) Non-Af 121 02/07/19 16:15: WBC 2.2 L, RBC 3.31 L, Hgb 10.1 L, Hct 29.3 L, MCV 88.5, MCH 30.5, MCHC 34.5, RDW Std Deviation 41.4, RDW Coeff of Keiko 12.9, Plt Count 93 L, MPV 9.7, Immature Gran % (Auto) 0.900, Neut % (Auto) 51.6, Lymph % (Auto) 33.0, [place] % (Auto) 12.6 H, Eos % (Auto) 1.4, Baso % (Auto) 0.5, Absolute Neuts (auto) 1.1 L, Absolute Lymphs (auto) 0.71 L, Nucleated RBC % 0, Platelet Estimate MOD DEC Current Medications Acetaminophen (Tylenol) 1,000 mg PO Q8H PRN PRN PRN Reason: Pain Score 1-10/10 or Fever Bupropion HCl (Wellbutrin Xl) 300 mg PO QAM [facility] Last Admin: 02/07/19 08:34 Dose: 300 mg Documented by: Enoxaparin Sodium (Lovenox) 40 mg SC QHS [facility] Hydromorphone HCl (Dilaudid Inj) 0.5 - 1 mg IV Q3H PRN PRN PRN Reason: Pain Score 4-10/10 Ketorolac Tromethamine (Toradol) 10 mg PO Q6 [facility] Stop: 02/12/19 11:24 Last Admin: 02/07/19 18:15 Dose: 10 mg Documented by: Meclizine HCl (Antivert) 25 mg PO TID [facility] Nutritional Formula (Lactose Free) (Ensure Clear) 120 ml PO 4X/DAY [facility] Last Admin: 02/07/19 18:15 Dose: 120 ml Documented by: Ondansetron HCl (Zofran) 4 mg IV Q4H PRN PRN PRN Reason: NAUSEA Last Admin: 02/07/19 15:09 Dose: 4 mg Documented by: Oxycodone HCl (Oxyir) 5 - 10 mg PO Q4H PRN PRN PRN Reason: Pain Score 4-10/10 Last Admin: 02/07/19 18:56 Dose: 10 mg Documented by: Sodium Chloride () 10 - 40 ml IV UD PRN PRN Reason: SALINE FLUSH Last Admin: 02/07/19 15:09 Dose: 10 ml Documented by: Medical Necessity - Tobacco Use Smoking Status: Light Smoker (<10/day) Tobacco Use: Cigarettes Assessment/Plan All Active Problems (Last Updated 02/06/19 @ 19:26 by Alejandra Carlson MD) Fever (Resolved) Cephalalgia (Acute) Nausea & vomiting (Resolved) Urinary tract infection (Resolved) Leukopenia (Acute) Hemoperitoneum (Acute) 1. 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 intake to remain hydrated 2. Rheumatoid arthritis -Intermittent prednisone use -She is on Tocilizumab weekly 3. Anxiety/depression -Continue with Wellbutrin -Stable 4. Asthma -Not in exacerbation -Continue with albuterol as needed DVT: Lovenox Code Visit Inpatient E&M: 87114 [facility] Hosp L3
[2019-02-07] MEDS: Acetaminophen 500 MG Tablet 1000 MG PO (19:48)
[2019-02-08] VITALS (7 sets, daily range): BP systolic 100–124; BP diastolic 56–79; PULSE 76–88; RESP 16; TEMP 36.7–37.3; O2SAT 96–99
[2019-02-08] MEDS: Ondansetron 4 MG/2 ML Vial IV ×4 (00:05→23:18)
[2019-02-08] MEDS: 0.9% Saline Lock 10 ML Syringe IV ×3 (00:05→18:34)
[2019-02-08 03:14] LABS: Chlamydia Trachomatis by PCR Negative (Negative); Neisserai gonorrhoeae by PCR Negative (Negative); Probe Check PASS; Sample Adequacy Control PASS; Specimen Processing Control PASS
[2019-02-08] MEDS: Ketorolac 10 MG Tablet PO ×4 (05:57→23:14)
[2019-02-08] MEDS: Meclizine HCl 25 MG Tablet PO ×3 (05:57→21:38)
[2019-02-08] MEDS: buPROPion (XL) 300 MG TABLET.XL PO (09:56)
[2019-02-08] MEDS: Ensure Clear 120 ML Liquid PO ×3 (09:56→18:32)
[2019-02-08] MEDS: oxyCODONE 5 MG Tablet PO ×2 (10:00→20:34)
--- NOTE | 2019-02-08 10:56 | PN_ITS ---
Patient Problems: Active and Suspected Problems (Last Updated 02/06/19 @ 19:26 by Alejandra Navarrete MD) Hemoperitoneum (Acute) Subjective: POD#2 L/S for evacuation of hemoperitoneum, ruptured ovarian cyst. S/P 1 unit pRBCs at ED, Hgb stable postop Doing ok. Still feeling dizzy at times. states feeling much better from neck down now. Questions about surgery, future fertility. Current problem with dizziness. States she had already arranged her own neurologist appt outpt. MRI done but results pending. Denies Fever, chills, nausea, vomiting. Churchill remains in place. - Physical Exam Vitals/I&O's: Vital Signs Temp Pulse Resp BP Pulse Ox 98.7 F 77 16 124/79 H 99 02/08/19 10:00 02/08/19 10:00 02/08/19 10:00 02/08/19 10:00 02/08/19 10:00 Oxygen Delivery Method Room Air Weight: 63.503 kg Body Mass Index (BMI) 21.2 Orthostatic Vital Signs Start: 02/07/19 20:19 Freq: q24h Status: Active Protocol: Activity Type Activity Date Activity User E-Sign Co-Sign Detail Recorded Client Recorded Date Recorded By Document 02/07/19 20:19 MARIAM [id number] 02/07/19 20:21 MARIAM 02/07/19 20:19 Orthostatic Vitals Standing -Blood Pressure (90/60-120/80 mm Hg) 114/70 -Extremity Use Left Arm -Pulse Rate (60-100 beats/min) 98 Sitting -Blood Pressure (90/60-120/80 mm Hg) 129/76 H -Extremity Use Left Arm -Pulse Rate (60-100 beats/min) 95 Lying -Blood Pressure (90/60-120/80 mm Hg) 110/66 -Extremity Use Left Arm -Pulse Rate (60-100 beats/min) 93 Intake and Output for Last 24 Hours 02/06/19 02/07/19 02/08/19 23:59 23:59 23:59 Intake Total 2300 / 2300 1593.75 / 1893.75 500 / 500 Output Total 200 / 200 900 / 1300 800 / 800 Balance 2100 / 2100 693.75 / 593.75 -300 / -300 General: Alert, Oriented x3, Cooperative, No apparent distress HEENT: Atraumatic, EOMI Neck: Supple Abdomen: Soft - flat minimally tender c/w postop status. Skin: Incision - L/S incisions CDI. Op sites on all three. Neurological: Cranial nerves II-XII grossly intact Psych/Mental Status: Normal Affect Laboratory Results 02/07/19 16:15: WBC 2.2 L, RBC 3.31 L, Hgb 10.1 L, Hct 29.3 L, MCV 88.5, MCH 30.5, MCHC 34.5, RDW Std Deviation 41.4, RDW Coeff of Keiko 12.9, Plt Count 93 L, MPV 9.7, Immature Gran % (Auto) 0.900, Neut % (Auto) 51.6, Lymph % (Auto) 33.0, [place] % (Auto) 12.6 H, Eos % (Auto) 1.4, Baso % (Auto) 0.5, Absolute Neuts (auto) 1.1 L, Absolute Lymphs (auto) 0.71 L, Nucleated RBC % 0, Platelet Estimate MOD DEC 02/08/19 01:20: Chlam trachomat DNA PCR Negative, N.gonorrhoeae DNA (PCR) Negative Current Medications Acetaminophen (Tylenol) 1,000 mg PO Q8H PRN PRN PRN Reason: Pain Score 1-10/10 or Fever Last Admin: 02/07/19 19:48 Dose: 1,000 mg Documented by: Bupropion HCl (Wellbutrin Xl) 300 mg PO QAM [facility] Last Admin: 02/08/19 09:56 Dose: 300 mg Documented by: Enoxaparin Sodium (Lovenox) 40 mg SC QHS [facility] Hydromorphone HCl (Dilaudid Inj) 0.5 - 1 mg IV Q3H PRN PRN PRN Reason: Pain Score 4-10/10 Ketorolac Tromethamine (Toradol) 10 mg PO Q6 [facility] Stop: 02/12/19 11:24 Last Admin: 02/08/19 05:57 Dose: 10 mg Documented by: Meclizine HCl (Antivert) 25 mg PO TID [facility] Last Admin: 02/08/19 05:57 Dose: 25 mg Documented by: Nutritional Formula (Lactose Free) (Ensure Clear) 120 ml PO 4X/DAY [facility] Last Admin: 02/08/19 09:56 Dose: 120 ml Documented by: Ondansetron HCl (Zofran) 4 mg IV Q4H PRN PRN PRN Reason: NAUSEA Last Admin: 02/08/19 10:10 Dose: 4 mg Documented by: Oxycodone HCl (Oxyir) 5 - 10 mg PO Q4H PRN PRN PRN Reason: Pain Score 4-10/10 Last Admin: 02/08/19 10:00 Dose: 10 mg Documented by: Sodium Chloride () 10 - 40 ml IV UD PRN PRN Reason: SALINE FLUSH Last Admin: 02/08/19 10:12 Dose: 10 ml Documented by: Medical Necessity - Tobacco Use Smoking Status: Light Smoker (<10/day) Tobacco Use: Cigarettes Assessment/Plan All Active Problems (Last Updated 02/06/19 @ 19:26 by Alejandra Carlson MD) Fever (Resolved) Cephalalgia (Acute) Nausea & vomiting (Resolved) Urinary tract infection (Resolved) Leukopenia (Acute) Hemoperitoneum (Acute) 33yo .. POD#2 s/p diagnostic laparoscopy for ruptured hemorrhagic ovarian cyst s/p 1 U [facility], stable H/H with persistent dizziness 1. Urinary retention - churchill catheter placed - voiding trial to be repeated today. D/C churchill when tolerating out of bed. 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 -Appt arranged by pt already with neurology -Continue meclizine 3. DVT prophylaxis : Lovenox Routine postop care Out of bed to chair and trial ambulation with assistance D/C churchill for voiding trial, if tolerating ambulation Potential dischg home later today.
--- NOTE | 2019-02-08 15:47 | PCM.PN.HOSP ---
Patient Problems: Active and Suspected Problems (Last Updated 02/06/19 @ 19:26 by Alejandra Carlson MD) Hemoperitoneum (Acute) Subjective: No change in her dizziness, she still maintains that it feels like she is sort of tilting to the right. Having difficulty with tolerating p.o. intake because of nausea Vitals/I&O's: Vital Signs Temp Pulse Resp BP Pulse Ox 98.2 F 77 16 124/79 H 99 02/08/19 12:13 02/08/19 10:00 02/08/19 10:00 02/08/19 10:00 02/08/19 10:00 Oxygen Delivery Method Room Air Weight: 140 lb Body Mass Index (BMI) 21.2 Orthostatic Vital Signs Start: 02/07/19 20:19 Freq: q24h Status: Active Protocol: Activity Type Activity Date Activity User E-Sign Co-Sign Detail Recorded Client Recorded Date Recorded By Document 02/07/19 20:19 MARIAM [id number] 02/07/19 20:21 MARIAM 02/07/19 20:19 Orthostatic Vitals Standing -Blood Pressure (90/60-120/80) 114/70 -Extremity Use Left Arm -Pulse Rate (60-100) 98 Sitting -Blood Pressure (90/60-120/80) 129/76 H -Extremity Use Left Arm -Pulse Rate (60-100) 95 Lying -Blood Pressure (90/60-120/80) 110/66 -Extremity Use Left Arm -Pulse Rate (60-100) 93 Intake and Output for Last 24 Hours 02/06/19 02/07/19 02/08/19 23:59 23:59 23:59 Intake Total 2300 / 2300 1593.75 / 1893.75 500 / 500 Output Total 200 / 200 900 / 1300 800 / 800 Balance 2100 / 2100 693.75 / 593.75 -300 / -300 General: Alert, Oriented x3, Cooperative, No apparent distress HEENT: Atraumatic, PERRLA, EOMI, Normocephalic Oral: Dry Mucosa Neck: Supple, No JVD Lungs: Clear to auscultation, Normal air movement, No rhonchi, No wheeze, No rales Cardiovascular: Regular rate, Regular Rhythm, Normal S1, Normal S2, No murmurs Abdomen: Soft, Non Tender, Non-Distended, No Hepato-splenomegaly Extremities: No edema, Capillary Refill Less than 3 Seconds Skin: No rashes, No breakdown Neurological: Cranial nerves II-XII grossly intact, - - No facial droop, face is symmetric, however significant decrease in sensation on the right side of her face compared to her left. No tongue deviation or slurred speech. [id number] is normal, no asterixis or drift Psych/Mental Status: Normal Affect, Appropriate Laboratory Results 02/07/19 16:15: WBC 2.2 L, RBC 3.31 L, Hgb 10.1 L, Hct 29.3 L, MCV 88.5, MCH 30.5, MCHC 34.5, RDW Std Deviation 41.4, RDW Coeff of Keiko 12.9, Plt Count 93 L, MPV 9.7, Immature Gran % (Auto) 0.900, Neut % (Auto) 51.6, Lymph % (Auto) 33.0, Kendall % (Auto) 12.6 H, Eos % (Auto) 1.4, Baso % (Auto) 0.5, Absolute Neuts (auto) 1.1 L, Absolute Lymphs (auto) 0.71 L, Nucleated RBC % 0, Platelet Estimate MOD 02/08/19 01:20: Chlam trachomat DNA PCR Negative, N.gonorrhoeae DNA (PCR) Negative Current Medications Acetaminophen (Tylenol) 1,000 mg PO Q8H PRN PRN PRN Reason: Pain Score 1-10/10 or Fever Last Admin: 02/07/19 19:48 Dose: 1,000 mg Documented by: Bupropion HCl (Wellbutrin Xl) 300 mg PO QAM [facility] Last Admin: 02/08/19 09:56 Dose: 300 mg Documented by: Enoxaparin Sodium (Lovenox) 40 mg SC QHS [facility] Hydromorphone HCl (Dilaudid Inj) 0.5 - 1 mg IV Q3H PRN PRN PRN Reason: Pain Score 4-10/10 Ketorolac Tromethamine (Toradol) 10 mg PO Q6 [facility] Stop: 02/12/19 11:24 Last Admin: 02/08/19 12:09 Dose: 10 mg Documented by: Meclizine HCl (Antivert) 25 mg PO TID [facility] Last Admin: 02/08/19 12:10 Dose: 25 mg Documented by: Nutritional Formula (Lactose Free) (Ensure Clear) 120 ml PO 4X/DAY DEX Last Admin: 02/08/19 12:10 Dose: 120 ml Documented by: Ondansetron HCl (Zofran) 4 mg IV Q4H PRN PRN PRN Reason: NAUSEA Last Admin: 02/08/19 10:10 Dose: 4 mg Documented by: Oxycodone HCl (Oxyir) 5 - 10 mg PO Q4H PRN PRN PRN Reason: Pain Score 4-10/10 Last Admin: 02/08/19 10:00 Dose: 10 mg Documented by: Sodium Chloride () 10 - 40 ml IV UD PRN PRN Reason: SALINE FLUSH Last Admin: 02/08/19 10:12 Dose: 10 ml Documented by: STROKE Vital Signs/Narrative: Vital Signs Tem 02/08/19 12:13 98.2 F Medical Necessity - Tobacco Use Smoking Status: Light Smoker (<10/day) Tobacco Use: Cigarettes Assessment/Plan All Active Problems (Last Updated 02/06/19 @ 19:26 by Alejandra Carlson MD) Fever (Resolved) Cephalalgia (Acute) Nausea & vomiting (Resolved) Urinary tract infection (Resolved) Leukopenia (Acute) Hemoperitoneum (Acute) 1. 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 intake to remain hydrated 2. Rheumatoid arthritis -Intermittent prednisone use -She is on Tocilizumab weekly 3. Anxiety/depression -Continue with Wellbutrin -Stable 4. Asthma -Not in exacerbation -Continue with albuterol as needed DVT: Lovenox Code Visit Inpatient E&M: 42403 Subs Hosp L2
[2019-02-08 16:39] LABS: Thyroid Stim Hormone (TSH) 1.01 uIU/mL (0.358-3.74)
[2019-02-08 16:49] LABS: Vitamin B12 164 pg/mL (211-911)
--- NOTE | 2019-02-08 19:38 | MRI_ITS ---
STUDY: MRI BRAIN WITH AND WITHOUT CONTRAST REASON FOR EXAM: Female, 33 years old. vision changes, bells palsey,dizzy, rt facial numbness, rt ear tinnitus TECHNIQUE: Standardized multiplanar fat and water weighted pulse sequences were obtained. Dotarem 12 IV was administered for the contrast portion of the examination. COMPARISON: 11/02/2013 FINDINGS: Normal size of the ventricles and extra-axial spaces for the patient''s age. Normal white matter tracts of the supratentorial brain. There is no evidence for recent intracranial ischemia or other cause of cytotoxic edema on diffusion weighted imaging (DWI). Normal T2* images of the brain without demonstrated susceptibility artifact. There is no demonstrated hemosiderin stain. Normal bilateral basal ganglia. Normal thalami. There is no extra-axial fluid accumulation. Normal flow voids within the major intracranial circulation suggesting patency by spin echo criteria. Normal venous enhancement. There is no enhancing intra-axial or extra-axial abnormality. Normal sella turcica, pituitary gland, infundibular stalk, optic chiasm and hypothalamus. Normal tectal plate and pineal gland. Normal midbrain, jose and medulla. Normal cerebellum. Normal basal cisterns. Normal bilateral temporal bones. Normal bilateral internal auditory canals. No demonstrated orbital abnormality, within the constraints of a routine brain study. Normal visualized paranasal sinuses. Normal calvarium and skull base. Normal visualized soft tissue structures. Normal visualized upper cervical spine. MRI/Brain W/WO Contrast IMPRESSION: Normal unenhanced and enhanced MRI of the brain. Electronically Signed: Dileep Bunn MD at 13:34 EST Tel , Service support ,
[2019-02-09 04:00] VITALS: BP 115/74; PULSE 78; RESP 16; TEMP 36.8; O2SAT 97
[2019-02-09] MEDS: Meclizine HCl 25 MG Tablet PO ×2 (06:28→14:16)
[2019-02-09] MEDS: Ketorolac 10 MG Tablet PO ×2 (06:28→12:10)
[2019-02-09 07:42] VITALS: O2SAT 98
--- NOTE | 2019-02-09 08:38 | PN_ITS ---
Patient Problems: Active and Suspected Problems (Last Updated 02/06/19 @ 19:26 by Alejandra Navarrete MD) Hemoperitoneum (Acute) Subjective: POD#3 Laparsocopy for hemoperitoneum, ruptured ovarian cyst. Doing well . Pain control adeqate. CC of sore throat worse than prior. (Will check on exam) reports able to urinate. Still dizzy. - Physical Exam Vitals/I&O's: Vital Signs Temp Pulse Resp BP Pulse Ox 98.2 F 78 16 115/74 98 02/09/19 04:00 02/09/19 04:00 02/09/19 04:00 02/09/19 04:00 02/09/19 07:42 Oxygen Delivery Method Room Air Weight: 63.503 kg Body Mass Index (BMI) 21.2 Orthostatic Vital Signs Start: 02/07/19 20:19 Freq: q24h Status: Active Protocol: Activity Type Activity Date Activity User E-Sign Co-Sign Detail Recorded Client Recorded Date Recorded By Document 02/07/19 20:19 MARIAM [id number] 02/07/19 20:21 MARIAM 02/07/19 20:19 Orthostatic Vitals Standing -Blood Pressure (90/60-120/80) 114/70 -Extremity Use Left Arm -Pulse Rate (60-100) 98 Sitting -Blood Pressure (90/60-120/80) 129/76 H -Extremity Use Left Arm -Pulse Rate (60-100) 95 Lying -Blood Pressure (90/60-120/80) 110/66 -Extremity Use Left Arm -Pulse Rate (60-100) 93 Intake and Output for Last 24 Hours 02/07/19 02/08/19 02/09/19 23:59 23:59 23:59 Intake Total 1593.75 / 1893.75 940 / 940 240 / 240 Output Total 900 / 1300 1500 / 1500 Balance 693.75 / 593.75 -560 / -560 240 / 240 General: Alert, Oriented x3, Cooperative, No apparent distress HEENT: Atraumatic Oral: Moist Mucosa, - - THROAT: uvula appears traumatized . Tonsillar fossae clear. Remainder of throat clear. Neck: Supple Skin: Incision - Op sites CDI. Psych/Mental Status: Normal Affect Laboratory Results 02/08/19 05:25: TSH 1.01 02/08/19 05:25: Vitamin B12 164 L Current Medications Acetaminophen (Tylenol) 1,000 mg PO Q8H PRN PRN PRN Reason: Pain Score 1-10/10 or Fever Last Admin: 02/07/19 19:48 Dose: 1,000 mg Documented by: Bupropion HCl (Wellbutrin Xl) 300 mg PO QAM [facility] Last Admin: 02/08/19 09:56 Dose: 300 mg Documented by: Enoxaparin Sodium (Lovenox) 40 mg SC QHS [facility] Last Admin: 02/08/19 23:19 Dose: Not Given Documented by: Hydromorphone HCl (Dilaudid Inj) 0.5 - 1 mg IV Q3H PRN PRN PRN Reason: Pain Score 4-10/10 Ketorolac Tromethamine (Toradol) 10 mg PO Q6 [facility] Stop: 02/12/19 11:24 Last Admin: 02/09/19 06:28 Dose: 10 mg Documented by: Meclizine HCl (Antivert) 25 mg PO TID [facility] Last Admin: 02/09/19 06:28 Dose: 25 mg Documented by: Nutritional Formula (Lactose Free) (Ensure Clear) 120 ml PO 4X/DAY [facility] Last Admin: 02/08/19 21:39 Dose: Not Given Documented by: Ondansetron HCl (Zofran) 4 mg IV Q4H PRN PRN PRN Reason: NAUSEA Last Admin: 02/08/19 23:18 Dose: 4 mg Documented by: Oxycodone HCl (Oxyir) 5 - 10 mg PO Q4H PRN PRN PRN Reason: Pain Score 4-10/10 Last Admin: 02/08/19 20:34 Dose: 10 mg Documented by: Sodium Chloride () 10 - 40 ml IV UD PRN PRN Reason: SALINE FLUSH Last Admin: 02/08/19 18:34 Dose: 10 ml Documented by: Throat Lozenges (Cepacol Sore Throat Lozenge) 2 lozenge MUCOUS MEM Q2H PRN PRN PRN Reason: SORE THROAT Medical Necessity - Tobacco Use Smoking Status: Light Smoker (<10/day) Tobacco Use: Cigarettes Assessment/Plan All Active Problems (Last Updated 02/06/19 @ 19:26 by Alejandra Carlson MD) Fever (Resolved) Cephalalgia (Acute) Nausea & vomiting (Resolved) Urinary tract infection (Resolved) Leukopenia (Acute) Hemoperitoneum (Acute) 33yo .. POD#3 s/p diagnostic laparoscopy for ruptured hemorrhagic o varian cyst s/p 1 U [facility], stable H/H with persistent dizziness 1. Urinary retention initially, resolved. 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 -Appt arranged by pt already with neurology continue outpatient evaluation, workup -Continue meclizine 3. DVT prophylaxis : Lovenox 4. Sore throat. Trauma to uvula noted on exam. Tonsillar fossae and remainder of throate appear WNL. Cepacol lozenges, Comfort measures. Routine postop care . 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
[2019-02-09] MEDS: BENZOCAINE/MENTHOL 1 LOZENGE 2 LOZENGE MUCOUS MEM (08:51)
--- NOTE | 2019-02-09 10:21 | PN_ITS ---
Patient Problems: Active and Suspected Problems (Last Updated 02/06/19 @ 19:26 by Alejandra Navarrete MD) Hemoperitoneum (Acute) Subjective: No change in her baseline symptoms, no issues overnight. She is having a little bit of a sore throat. Vitals/I&O's: Vital Signs Temp Pulse Resp BP Pulse Ox 98.2 F 78 16 115/74 98 02/09/19 04:00 02/09/19 04:00 02/09/19 04:00 02/09/19 04:00 02/09/19 07:42 Oxygen Delivery Method Room Air Weight: 140 lb Body Mass Index (BMI) 21.2 Orthostatic Vital Signs Start: 02/07/19 20:19 Freq: q24h Status: Active Protocol: Activity Type Activity Date Activity User E-Sign Co-Sign Detail Recorded Client Recorded Date Recorded By Document 02/07/19 20:19 MARIAM [id number] 02/07/19 20:21 MARIAM 02/07/19 20:19 Orthostatic Vitals Standing -Blood Pressure (90/60-120/80) 114/70 -Extremity Use Left Arm -Pulse Rate (60-100) 98 Sitting -Blood Pressure (90/60-120/80) 129/76 H -Extremity Use Left Arm -Pulse Rate (60-100) 95 Lying -Blood Pressure (90/60-120/80) 110/66 -Extremity Use Left Arm -Pulse Rate (60-100) 93 Intake and Output for Last 24 Hours 02/07/19 02/08/19 02/09/19 23:59 23:59 23:59 Intake Total 1593.75 / 1893.75 940 / 940 240 / 240 Output Total 900 / 1300 1500 / 1500 Balance 693.75 / 593.75 -560 / -560 240 / 240 General: Alert, Oriented x3, Cooperative, No apparent distress HEENT: Atraumatic, PERRLA, EOMI, Normocephalic Oral: Dry Mucosa Neck: Supple, No JVD Lungs: Clear to auscultation, Normal air movement, No rhonchi, No wheeze, No rales Cardiovascular: Regular rate, Regular Rhythm, Normal S1, Normal S2, No murmurs Abdomen: Soft, Non Tender, Non-Distended, No Hepato-splenomegaly Extremities: No edema, Capillary Refill Less than 3 Seconds Skin: No rashes, No breakdown Neurological: Cranial nerves II-XII grossly intact, - - No facial droop, face is symmetric, however significant decrease in sensation on the right side of her face compared to her left. No tongue deviation or slurred speech. [id number] is normal, no asterixis or drift Psych/Mental Status: Normal Affect, Appropriate Laboratory Results 02/08/19 05:25: TSH 1.01 02/08/19 05:25: Vitamin B12 164 L Current Medications Acetaminophen (Tylenol) 1,000 mg PO Q8H PRN PRN PRN Reason: Pain Score 1-10/10 or Fever Last Admin: 02/07/19 19:48 Dose: 1,000 mg Documented by: Bupropion HCl (Wellbutrin Xl) 300 mg PO QAM [facility] Last Admin: 02/08/19 09:56 Dose: 300 mg Documented by: Enoxaparin Sodium (Lovenox) 40 mg SC QHS [facility] Last Admin: 02/08/19 23:19 Dose: Not Given Documented by: Hydromorphone HCl (Dilaudid Inj) 0.5 - 1 mg IV Q3H PRN PRN PRN Reason: Pain Score 4-10/10 Ketorolac Tromethamine (Toradol) 10 mg PO Q6 [facility] Stop: 02/12/19 11:24 Last Admin: 02/09/19 06:28 Dose: 10 mg Documented by: Meclizine HCl (Antivert) 25 mg PO TID [facility] Last Admin: 02/09/19 06:28 Dose: 25 mg Documented by: Nutritional Formula (Lactose Free) (Ensure Clear) 120 ml PO 4X/DAY [facility] Last Admin: 02/08/19 21:39 Dose: Not Given Documented by: Ondansetron HCl (Zofran) 4 mg IV Q4H PRN PRN PRN Reason: NAUSEA Last Admin: 02/08/19 23:18 Dose: 4 mg Documented by: Oxycodone HCl (Oxyir) 5 - 10 mg PO Q4H PRN PRN PRN Reason: Pain Score 4-10/10 Last Admin: 02/08/19 20:34 Dose: 10 mg Documented by: Sodium Chloride () 10 - 40 ml IV UD PRN PRN Reason: SALINE FLUSH Last Admin: 12/24/19 18:34 Dose: 10 ml Documented by: Throat Lozenges (Cepacol Sore Throat Lozenge) 2 lozenge MUCOUS MEM Q2H PRN PRN PRN Reason: SORE THROAT Last Admin: 02/09/19 08:51 Dose: 2 lozenge Documented by: STROKE Vital Signs/Narrative: Vital Signs Pulse Ox 02/09/19 07:42 98 Medical Necessity - Tobacco Use Smoking Status: Light Smoker (<10/day) Tobacco Use: Cigarettes Assessment/Plan All Active Problems (Last Updated 02/06/19 @ 19:26 by Alejandra Carlson MD) Fever (Resolved) Cephalalgia (Acute) Nausea & vomiting (Resolved) Urinary tract infection (Resolved) Leukopenia (Acute) Hemoperitoneum (Acute) 1. 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 intake to remain hydrated 2. Rheumatoid arthritis -Intermittent prednisone use -She is on Tocilizumab weekly 3. Anxiety/depression -Continue with Wellbutrin -Stable 4. Asthma -Not in exacerbation -Continue with albuterol as needed DVT: Lovenox Code Visit Inpatient E&M: 28973 Subs Hosp L2
[2019-02-09] MEDS: Ondansetron 4 MG/2 ML Vial IV (11:15)
[2019-02-09] MEDS: 0.9% Saline Lock 10 ML Syringe IV (11:15)
[2019-02-09 12:06] VITALS: BP 112/68; PULSE 81; RESP 18; TEMP 37; O2SAT 98
[2019-02-09] MEDS: Ensure Clear 120 ML Liquid PO (12:08)
[2019-02-09] MEDS: Cyanocobalamin (B12) 1,000 MCG/ML Vial 1000 MCG IM (12:09)
[2019-02-09] MEDS: buPROPion (XL) 300 MG TABLET.XL PO (12:11)
[2019-02-09] MEDS: Acetaminophen 500 MG Tablet 1000 MG PO (12:13)
[2019-02-09] MEDS: BMX LIQUID 180 ML 10 ML PO (14:16)
--- NOTE | 2019-02-09 15:20 | PCM.PN.BLA ---
Progress Note ADDENDUM: Pt rquesting dischg home now. Wants RX for nausea. continued vertigo 1-2 mo duration. Dischg order placed Also wants another CBC. Prior one stable, Repeat CBC ordered per pt request Dischg after blood draw RX sent to [facility] for Zofran for prn use. Suspect N/V due to her vertigo. Could consider Sopalamine patch STROKE Vital Signs/Narrative: Vital Signs Temp Pulse Resp BP Pulse Ox 02/09/19 12:06 98.6 F 81 18 112/68 98
[2019-02-09 15:22] VITALS: BP 116/72; PULSE 71; RESP 18; TEMP 37; O2SAT 98
--- NOTE | 2019-02-09 15:23 | DS.PCM_ITS ---
Discharge Date and Diagnosis - Problem List Patient Problems: Active and Suspected Problems (Last Updated 02/06/19 @ 19:26 by Alejandra Navarrete MD) Hemoperitoneum (Acute) Date of Admission: 02/06/19 - hemoperitoneum, ruptured ovarian cyst IUD in place, normal placement. Date of Discharge: 02/09/19 - S/P laparoscopy, evacuation of hemoperitoneum, blood transfusion. Persistent vertigo times 1-2 mo duration. - Primary Discharge Diagnosis Active and Suspected Problems (Last Updated 02/06/19 @ 19:26 by Alejandra Navarrete MD) Hemoperitoneum (Acute) - Secondary Discharge Diagnosis Chronic Problems (Last Updated 02/06/19 @ 19:26 by Alejandra Carlson MD) Rheumatoid arthritis (Chronic) Immunosuppressed status (Chronic) Migraines (Chronic) Asthma (Chronic) Osteopenia (Chronic) Depression (Chronic) Hospital Course and Treatment Operations: - - Laparoscopy for evacuation of hemoperitoneum. MRI of head (to eval vertigo) Summary of Care Provided: The patient is a 33 year old female with IUD in place presents to [facility] ED with CC of pain after intercourse. CT showed free fluid within pelvis, IUD in place in uterus. Anemic and given blood transfusion. Taken for laparoscopy, evacuation of hemoperitoneum and hemostasis of the L ovary (ruptured ovarian cyst). Postop course complicated by urinary retention. Also dizziness, vertigo s/p Renteria's palsy Additional hospital stay for evaluation and workup of vertigo. MRI of brain NEG. Dischg home on POD#3 to follow up with PCP for ongoing tx: -- B 12 deficiency and repeat IM dose to be given in one week per hospitalist notes -- ongoing neurology evaluation for persistent vertigo Sore throat due to trauma of uvula, comfort measures to continue as this heals. RTO with Dr. Rafat Navarrete in 1-2 wk for postop check. Offered and declined hormonal contraception to further suppress ovarian cysts. Patient Problems: Active and Suspected Problems (Last Updated 02/06/19 @ 19:26 by Alejandra Navarrete MD) Hemoperitoneum (Acute) - Physical Exam Vitals/I&O's: Vital Signs Temp Pulse Resp BP Pulse Ox 98.6 F 71 18 116/72 98 02/09/19 15:22 02/09/19 15:22 02/09/19 15:22 02/09/19 15:22 02/09/19 15:22 Oxygen Delivery Method Room Air Weight: 63.503 kg Body Mass Index (BMI) 21.2 Orthostatic Vital Signs Start: 02/07/19 20:19 Freq: q24h Status: Active Protocol: Activity Type Activity Date Activity User E-Sign Co-Sign Detail Recorded Client Recorded Date Recorded By Document 02/07/19 20:19 MARIAM [id number] 02/07/19 20:21 MARIAM 02/07/19 20:19 Orthostatic Vitals Standing -Blood Pressure (90/60-120/80) 114/70 -Extremity Use Left Arm -Pulse Rate (60-100) 98 Sitting -Blood Pressure (90/60-120/80) 129/76 H -Extremity Use Left Arm -Pulse Rate (60-100) 95 Lying -Blood Pressure (90/60-120/80) 110/66 -Extremity Use Left Arm -Pulse Rate (60-100) 93 Intake and Output for Last 24 Hours 02/07/19 02/08/19 02/09/19 23:59 23:59 23:59 Intake Total 1593.75 / 1893.75 940 / 940 480 / 480 Output Total 900 / 1300 1500 / 1500 500 / 500 Balance 693.75 / 593.75 -560 / -560 - / -20 Laboratory Results 02/08/19 05:25: TSH 1.01 02/08/19 05:25: Vitamin B12 164 L Current Medications Acetaminophen (Tylenol) 1,000 mg PO Q8H PRN PRN PRN Reason: Pain Score 1-10/10 or Fever Last Admin: 02/09/19 12:13 Dose: 1,000 mg Documented by: Bupropion HCl (Wellbutrin Xl) 300 mg PO QAM [facility] Last Admin: 02/09/19 12:11 Dose: 300 mg Documented by: Enoxaparin Sodium (Lovenox) 40 mg SC QHS [facility] Last Admin: 02/08/19 23:19 Dose: Not Given Documented by: Hydromorphone HCl (Dilaudid Inj) 0.5 - 1 mg IV Q3H PRN PRN PRN Reason: Pain Score 4-10/10 Ketorolac Tromethamine (Toradol) 10 mg PO Q6 [facility] Stop: 02/12/19 11:24 Last Admin: 02/09/19 12:10 Dose: 10 mg Documented by: Lidocaine/Diphenhydr/Alum/Mg/Simeth () 10 ml PO Q3H PRN PRN PRN Reason: Mouth pain Last Admin: 02/09/19 14:16 Dose: 10 ml Documented by: Meclizine HCl (Antivert) 25 mg PO TID [facility] Last Admin: 02/09/19 14:16 Dose: 25 mg Documented by: Nutritional Formula (Lactose Free) (Ensure Clear) 120 ml PO 4X/DAY [facility] Last Admin: 02/09/19 14:16 Dose: Not Given Documented by: Ondansetron HCl (Zofran) 4 mg IV Q4H PRN PRN PRN Reason: NAUSEA Last Admin: 02/09/19 11:15 Dose: 4 mg Documented by: Oxycodone HCl (Oxyir) 5 - 10 mg PO Q4H PRN PRN PRN Reason: Pain Score 4-10/10 Last Admin: 02/08/19 20:34 Dose: 10 mg Documented by: Sodium Chloride () 10 - 40 ml IV UD PRN PRN Reason: SALINE FLUSH Last Admin: 02/09/19 11:15 Dose: 10 ml Documented by: Throat Lozenges (Cepacol Sore Throat Lozenge) 2 lozenge MUCOUS MEM Q2H PRN PRN PRN Reason: SORE THROAT Last Admin: 02/09/19 08:51 Dose: 2 lozenge Documented by: Discharge Activity: Return to Normal Activity, May not drive while taking narcotic pain medications., May Shower, - - No tub bath for 1 week May resume sexual activity in: 4 weeks Call your doctor if you observe: Fever of 101 or Higher, Inability to urinate, Inability to have a bowel movement, Using more than one pad per hour, Shortness of breath, Chest pain, Calf discomfort, Uncontrolled pain Suture Line Care: Avoid Pulling/Pushing Remove Dressing in (days):: 1 Cleanse incision/area with: Soap & Water Home Medications: Medications to take at Discharge spironolactone 100 mg tablet 100 mg PO DAILY 90 Days #90 07/13/17 tocilizumab 162 mg/0.9 mL subcutaneous syringe 162 mg SC QWEEK 28 Days #4 07/13/17 levonorgestrel 1 device INTRAUTERINE ONCE 08/13/18 calcium carbonate 600 mg calcium (1,500 mg) tablet 600 mg PO BID 12/08/18 cholecalciferol (vitamin D3) 50 mcg (2,000 unit) capsule 2,000 unit PO DAILY 12/08/18 Bupropion HCl [Bupropion Xl] 300 mg PO QAM 01/16/19 meclizine 25 mg tablet 25 mg PO BID-TID PRN #30 tab 01/21/19 Albuterol Inhaler [Ventolin Hfa] 90 mcg INHALATION Q6H PRN PRN 02/06/19 Albuterol Sulfate [Albuterol Sulfate Hfa] 02/06/19 Ondansetron HCl [Zofran] 4 mg PO Q6H PRN PRN #20 tab 02/09/19 Following Prescrptions Were Given to Patient: Ondansetron HCl [Zofran] 4 mg PO Q6H PRN PRN #20 tab PRN Reason: Nausea Transmission Status: Pending to [id number] Primary Care Physician: Becky Gallardo MD [Primary Care Provider] - Please Follow Up With: Alejandra Carlson MD When: 2 weeks Medical Necessity - Tobacco Use Smoking Status: Light Smoker (<10/day) Tobacco Use: Cigarettes Meaningful Use Info Meaningful Use Diagnoses (Choose all that apply): None applicable
[2019-02-09 15:50] LABS: Hematocrit 29.2 % (37-47); Hemoglobin 10.2 g/dL (12.0-15.0); Mean Corp Hgb Conc 34.9 g/dL (32-36); Mean Corpuscular Hgb 30.4 pg (27.0-32.0); Mean Corpuscular Volume 87.2 fL (81-99); Mean Platelet Vol. 9.2 fl (6.2-12.0); POSITIVE COUNT YES; Platelet Count 98 K/mm3 (150-450); RBC Distribution Width CV 12.3 % (11.6-14.6); RBC Distribution Width SD 39.4 fl (35.1-43.9); Red Blood Count 3.35 M/mm3 (4.2-5.4); White Blood Count 3.5 K/mm3 (4.4-11.0)
[2019-02-09 16:00] LABS: Scan Indicated on CBC? Y/N YES- FLAGS NOTED
[2019-02-09 16:41] LABS: Differential Comment SCANNED
--- NOTE | 2019-02-11 13:47 | CASEMGMT ---
JAVIER MORRISSEY Discharge Follow-Up Phone Call. Lace: 12 Strata: 4 Discharge Date: 02/09/19 Adm Dx: Diagonstic Laparoscopy Call to pt to inquire about how she has been doing since being discharged from the hospital. Pt stated, I'm doing okay. She states she went to her ENT because my throat was messy from the trach. She states he said it was a secondary infection from the trach and that he started her on antibiotics. 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 She states she made an appt with Dr Carlson for Feb 18. She also states she emailed her PCP re: the B-12 shot and is awaiting a response. She states she contacted her glass glazier as well re: Actemra injections and they are having her hold them for a couple of weeks. She denies having any questions or concerns about the discharge instructions. She states, all is well. Bindu BARRON RN, CM
== END 2019-02-09 17:08 | disposition home or self-care (01) | DRG 760 ==
LOC: ED 16:09 → MS3 02-07 00:51
PROVIDERS: Family Medicine; Obstetrics & Gynecology; Admitting Provider Obstetrics & Gynecology; Emergency Provider Emergency Medicine; Family Provider Internal Medicine; PCP Internal Medicine; Referring Provider Obstetrics & Gynecology; Visit Provider Obstetrics & Gynecology
PROC: 0W9G4ZZ Drainage of Peritoneal Cavity, Percutaneous Endoscopic Approach (ICD-10-PCS; CPT 49320; principal; 2019-02-06 21:00)
DX: N83.202 Unspecified ovarian cyst, left side (principal); K66.1 Hemoperitoneum; F17.210 Nicotine dependence, cigarettes, uncomplicated; M06.9 Rheumatoid arthritis, unspecified; J45.909 Unspecified asthma, uncomplicated; E53.8 Deficiency of other specified B group vitamins; R33.9 Retention of urine, unspecified; Z97.5 Presence of (intrauterine) contraceptive device; Z90.721 Acquired absence of ovaries, unilateral; F32.9 Major depressive disorder, single episode, unspecified; M85.80 Other specified disorders of bone density and structure, unspecified site; G43.909 Migraine, unspecified, not intractable, without status migrainosus; S09.93XA Unspecified injury of face, initial encounter
CPT/HCPCS: 36415; 70553; 74177; 76830; 80053; 81001; 82565; 82607; 83690; 84443; 84703; 85025; 85027; 86850; 86900; 86901; 86920; 86922; 87491; 87591; 93976; 97802; 99251; 99284; 99406; A9575; J7030; J7120; P9016; Q9967; A4216; G0463; J0744; J2405; J3420

== ENCOUNTER → 2019-02-11 12:13 | Outpatient (CLI) | payer OTHER, SELFPAY ==
[2019-02-06 23:58] VITALS: BMI 21.2
== END ==
PROVIDERS: Family Provider Internal Medicine; PCP Internal Medicine; Referring Provider Internal Medicine; Visit Provider Internal Medicine
DX: N39.0 Urinary tract infection, site not specified (principal)

== ENCOUNTER → 2019-03-09 08:02 | Outpatient (CLI) | payer OTHER, SELFPAY ==
[2019-02-06 23:58] VITALS: BMI 21.2
[2019-03-09 10:03] LABS: Hematocrit 40.9 % (37-47); Hemoglobin 13.5 g/dL (12.0-15.0); Mean Corpuscular Hgb 30.4 pg (27.0-32.0); Mean Corpuscular Volume 92.1 fL (81-99); Mean Platelet Vol. 9.8 fl (6.2-12.0); Platelet Count 155 K/mm3 (150-450); RBC Distribution Width SD 44.4 fl (35.1-43.9); Red Blood Count 4.44 M/mm3 (4.2-5.4); White Blood Count 4.7 K/mm3 (4.4-11.0)
[2019-03-09 10:33] LABS: Vitamin B12 632 pg/mL (211-911)
== END ==
PROVIDERS: PCP Internal Medicine; Referring Provider Family Medicine; Visit Provider Family Medicine
DX: D50.0 Iron deficiency anemia secondary to blood loss (chronic) (principal); E53.9 Vitamin B deficiency, unspecified
CPT/HCPCS: 36415; 82607; 85027

== ENCOUNTER → 2019-03-12 11:14 | Outpatient (CLI) | payer OTHER, SELFPAY ==
[2019-02-06 23:58] VITALS: BMI 21.2
[2019-03-12 12:40] LABS: CRP < 2.90 mg/L (0.0-3.0); LDH 131 U/L (84-246); Rheumatoid Factor < 10.0 IU/mL (<15)
[2019-03-12 13:37] LABS: Internal QC Validated? YES +Cl - CLEAR BKGD
[2019-03-12 13:40] LABS: Monotest Negative (Negative)
[2019-03-15 16:07] LABS: ANTINUCLEAR ANTIBODIES DIRECT Negative (Negative)
[2019-03-16 11:31] LABS: Beta-2-Microglobulin, S 1.3 mg/L (0.6-2.4)
[2019-03-17 14:09] LABS: Lyme IgG P18 Ab Absent (.); Lyme IgG P23 Ab Absent (.); Lyme IgG P28 Ab Absent (.); Lyme IgG P30 Ab Absent (.); Lyme IgG P39 Ab Absent (.); Lyme IgG P41 Ab Absent (.); Lyme IgG P45 Ab Absent (.); Lyme IgG P58 Ab Present (.); Lyme IgG P66 Ab Absent (.); Lyme IgG P93 Ab Absent (.); Lyme IgM P23 Ab Absent (.); Lyme IgM P39 Ab Absent (.); Lyme IgM P41 Ab Absent (.); PROEL- A/G Ratio 1.4 (0.7-1.7); PROEL- Albumin 3.8 g/dL (2.9-4.4); PROEL- Alpha-1 Globulin 0.2 g/dL (0.0-0.4); PROEL- Alpha-2 Globulin 0.6 g/dL (0.4-1.0); PROEL- Beta Globulin 0.8 g/dL (0.7-1.3); PROEL- Gamma Globulin 1.1 g/dL (0.4-1.8); PROEL- Globulin, Total 2.8 g/dL (2.2-3.9); PROEL- TOTAL PROTEIN 6.6 g/dL (6.0-8.5)
[2019-03-18 13:24] LABS: ASO Titer 101.9 IU/mL (0.0-200.0); Lyme IgG WB Interpretation Negative (.); Lyme IgM WB Interpretation Negative (.)
== END ==
PROVIDERS: PCP Nurse Practitioner Family; Referring Provider Nurse Practitioner Family; Visit Provider Nurse Practitioner Family
DX: M06.9 Rheumatoid arthritis, unspecified (principal); D50.0 Iron deficiency anemia secondary to blood loss (chronic)
CPT/HCPCS: 36415; 82232; 83615; 84165; 86038; 86060; 86140; 86308; 86431; 86617

== ENCOUNTER → 2019-03-26 11:34 | Outpatient (CLI) | payer OTHER, SELFPAY ==
[2019-02-06 23:58] VITALS: BMI 21.2
== END ==
PROVIDERS: PCP Nurse Practitioner Family; Referring Provider Psychiatry & Neurology Neurology; Visit Provider Psychiatry & Neurology Neurology
DX: E53.8 Deficiency of other specified B group vitamins (principal)
CPT/HCPCS: 36415

== ENCOUNTER → 2019-07-29 09:51 | Outpatient (CLI) | payer OTHER, SELFPAY ==
[2019-02-06 23:58] VITALS: BMI 21.2
--- NOTE | 2019-07-29 09:56 | US_ITS ---
STUDY: ABDOMINAL ULTRASOUND - RIGHT UPPER QUADRANT REASON FOR VISIT: Female, 33 years old PAIN, ELEVATED LFTS TECHNIQUE: Ultrasound evaluation of the right upper quadrant was performed with real-time and static carranza-scale imaging. TECHNICAL QUALITY: Adequate. COMPARISON: Comparison is made with prior examination October 02, 2018. FINDINGS: Liver: The liver measures 15.3 cm. There is normal echogenicity of the liver. The bile ducts are within normal limits. There is hepatic color flow. The direction of portal flow is hepatopetal. There is a 1.5 cm x 1.9 cm x 2.1 cm hyperechoic nodule in the posterior superior aspect of the right lobe of the liver. This most likely represents an hemangioma. This is essentially unchanged as compared to prior examinations. Gallbladder: Normal distended gallbladder. The gallbladder wall measures 3.0 mm. There is a negative sonographic Martin''s sign. There is no pericholecystic fluid. There are no gallstones. Common Bile Duct (C.B.D.): The common bile duct measures 3.0 mm. Pancreas: Normal size of the head, body and tail of the pancreas. There is normal echogenicity of the pancreas. There is no demonstrated pancreatic mass or cyst. Right Kidney: Normal size of the right kidney. The right kidney measures 10.2 cm x 5.7 cm x 3.9 cm. Normal renal cortex. The right cortex measures 1.4 cm. There is no demonstrated renal mass or cyst. There is no right hydronephrosis. US/Abdomen Limited IMPRESSION: Findings suggestive of a stable 1.5 cm x 1.9 cm x 2.1 cm hemangioma in the posterior right lobe of the liver. Electronically Signed: Ladarius Mensah, at 10:42 EDT , Service support ,
[2019-07-29 12:22] LABS: Absolute Lymphocyte Count 1.54 X10^3/uL (0.83-4.51); Absolute Neutrophil Count 2.3 X10^3/uL (2.0-7.7); Basophil# 0.05 X10^3/uL; Basophil% 1.1 % (0-1); Eosinophil# 0.14 X10^3/uL; Eosinophils% 3.1 % (0-5); Hematocrit 42.9 % (37-47); Hemoglobin 14.6 g/dL (12.0-15.0); Lymphocyte # 1.54 X10^3/ul (4.0); Lymphocyte % 34.5 % (19-41); Mean Corpuscular Hgb 30.2 pg (27.0-32.0); Mean Corpuscular Volume 88.6 fL (81-99); Mean Platelet Vol. 10.4 fl (6.2-12.0); Monocyte# 0.42 X10^3/uL; Monocyte% 9.4 % (0-10); NRBC Flagged by Analyzer 0 % (0-5); Neutrophil # 2.31 X10^3/uL (2.7-7.7); Neutrophil % 51.7 % (47-70); Platelet Count 175 K/mm3 (150-450); RBC Distribution Width CV 12.4 % (11.6-14.6); RBC Distribution Width SD 40.2 fl (35.1-43.9); Red Blood Count 4.84 M/mm3 (4.2-5.4); White Blood Count 4.5 K/mm3 (4.4-11.0)
[2019-07-29 12:34] LABS: Erythrocyte Sedimentation Rate 2 mm/hr (0-20)
[2019-07-29 12:53] LABS: ALB/GLOB Ratio 1.1 RATIO (0.9-2.4); AST(SGOT) 13 U/L (15-37); Alanine Aminotransfer ALT/SGPT 18 U/L (13-56); Albumin, Serum 3.9 g/dL (3.2-5.0); Alkaline Phosphatase 47 U/L (45-117); Anion Gap 7 (5-15); BUN 12 mg/dL (7-18); BUN/Creat Ratio 14.5 RATIO (10-20); CRP < 2.90 mg/L (0.0-3.0); Calcium,Total 8.8 mg/dL (8.5-10.1); Chloride 107 mmol/L (98-107); Creatinine, Serum 0.83 mg/dL (0.55-1.02); EST Glomerular Filtration Rate 84 mL/min (>60); Est Glom Filt Rate - Afr Amer 101 mL/min (>60); Globulin 3.5 g/dL (2.2-4.2); Glucose 85 mg/dL (74-106); Protein, Total 7.4 g/dL (6.4-8.2); Sodium Level 140 mmol/L (136-145)
== END ==
PROVIDERS: PCP Nurse Practitioner Family
DX: R10.84 Generalized abdominal pain (principal); R94.5 Abnormal results of liver function studies
CPT/HCPCS: 36415; 76705; 80053; 85025; 85652; 86140

== ENCOUNTER → 2019-08-16 12:52 | Outpatient (CLI) | payer OTHER, SELFPAY ==
[2019-02-06 23:58] VITALS: BMI 21.2
--- NOTE | 2019-08-16 12:56 | NM_ITS ---
CLINICAL: 33-year-old female with reported history of right upper quadrant abdominal pain and nausea. RADIONUCLIDE HEPATOBILIARY SCINTIGRAPHY COMPARISON: Abdominal ultrasound report 07/29/2019 FINDINGS: Following the intravenous administration of 5.2 mCi of 99m Tc Mebrofenin, hepatobiliary images reveal: 1. Relatively prompt and homogeneous radiopharmaceutical concentration is noted by a normal sized liver. No parenchymal defects are identified. 2. Gallbladder activity is identified at 15 minutes post radiopharmaceutical administration. 3. Small intestinal tract is observed at 30 minutes following tracer injection. 4. Washout of the radiopharmaceutical by the hepatic parenchyma appears qualitatively normal. Cholecystokinin (0.02 ug/kg) was administered intravenously over a 30-minute period. The post CCK gallbladder ejection fraction calculated at 20 minutes following Cholecystokinin administration was noted to be 40.0 % (normal greater than 35%). During 30 minutes of post CCK imaging, there is no scintigraphic evidence of reflux of the radiotracer into the common hepatic duct or refilling of the gallbladder. RI/Hepatobilliary Img w/Pharm Int IMPRESSION: 1. NORMAL 99m Tc Mebrofenin hepatobiliary imaging examination with Cholecystokinin. A. A gallbladder ejection fraction calculated to be greater than 35% following the administration of Cholecystokinin makes the probability of functional hepatobiliary disease (gallbladder and/or sphincter of Oddi dyskinesia) and/or organic hepatobiliary disease (chronic acalculous cholecystitis and/or cystic duct syndrome) to be low. (Hank Bonilla et al, Journal of Nuclear Medicine 32:1695, 1991). Electronically Signed: Dileep Padilla DO at 22:05 EDT Tel , Service support ,
== END ==
PROVIDERS: PCP Nurse Practitioner Family
DX: R10.11 Right upper quadrant pain (principal)
CPT/HCPCS: 78227; A9537; J2805

== ENCOUNTER → 2019-10-27 16:52 | Outpatient (CLI) | payer OTHER, SELFPAY ==
[2019-02-06 23:58] VITALS: BMI 21.2
[2019-10-27 18:40] LABS: Vitamin B12 1069 pg/mL (211-911); Vitamin D,25 Hydroxy 66.5 ng/mL
[2019-10-27 18:52] LABS: Phosphorus 2.5 mg/dL (2.5-4.9)
== END ==
PROVIDERS: PCP Family Medicine; Referring Provider Family Medicine; Visit Provider Family Medicine
DX: M85.80 Other specified disorders of bone density and structure, unspecified site (principal); E53.8 Deficiency of other specified B group vitamins
CPT/HCPCS: 36415; 82306; 82607; 82746; 84100

== ENCOUNTER → 2019-12-27 08:39 | Outpatient (CLI) | payer OTHER, SELFPAY ==
[2019-02-06 23:58] VITALS: BMI 21.2
[2019-12-27 10:07] LABS: Vitamin B12 1363 pg/mL (211-911)
== END ==
PROVIDERS: PCP Family Medicine; Referring Provider Family Medicine; Visit Provider Family Medicine
DX: E53.8 Deficiency of other specified B group vitamins (principal)
CPT/HCPCS: 36415; 82607

== ENCOUNTER → 2020-01-03 09:55 | Outpatient (CLI) | payer OTHER, SELFPAY ==
[2019-12-29 15:07] VITALS: BMI 22.0
--- NOTE | 2020-01-03 09:56 | ECHOD_ITS ---
Reason For Study: DYSPNEA/SOB Procedure This was a 2D Doppler, Color Flow transthoracic echocardiogram. The study was technically difficult. Exam performed in department. Left Ventricle Normal LV size. Left ventricular systolic function is normal. The estimated ejection fraction is 60 %. No evidence for diastolic dysfunction. No regional wall motion abnormalities noted. Right Ventricle Normal RV size. Normal systolic function. Atria Normal left atrium. Normal right atrium. No doppler evidence for ASD. Mitral Valve There is no mitral annular calcification. Normal mitral valve. Trivial mitral valve insufficiency. Tricuspid Valve Normal tricuspid valve. Trivial tricuspid valve insufficiency. Unable to estimate RV systolic pressure/pulmonary artery pressure due to technically difficult study. Aortic Valve The aortic valve is not well visualized. Pulmonic Valve The pulmonic valve is not well visualized. Great Vessels Normal sized aortic root. Pericardium/Pleural No pericardial effusion. MMode/2D Measurements & Calculations LVIDd: 4.2 cm IVSd: 0.75 cm Ao root diam: 2.6 cm LVIDs: 2.7 cm LVPWd: 0.77 cm RVDd: 2.9 cm FS: 35.3 % LAV(MOD-bp): 34.7 ml LA A4 area: 11.5 cm2 LA dimension(2D): 2.1 cm LAV(MOD-bp) Indexed: 19.4 ml/m2 LAV(MOD-sp2): 40.4 ml LAV(MOD-sp4): 23.3 ml RA A4 area: 11.5 cm2 Doppler Measurements & Calculations MV E max davie: 57.0 cm/sec Lat Peak E' Davie: 14.6 cm/sec Med Peak E' Davie: 10.2 cm/sec MV A max davie: 43.0 cm/sec E/E' lat: 3.9 E/E' med: 5.6 MV E/A: 1.3 Ao V2 max: 119.3 cm/sec LV V1 max: 101.9 cm/sec PA V2 max: 73.5 cm/sec Ao max P.7 mmHg LV V1 max P.2 mmHg Interpretation Summary The study was technically difficult. Left ventricular systolic function is normal. The estimated ejection fraction is 60 %. Trivial mitral valve insufficiency. Trivial tricuspid valve insufficiency. Unable to estimate RV systolic pressure/pulmonary artery pressure due to technically difficult study. No evidence for diastolic dysfunction. Ordering Physician: Ralph Spears Referring Physician: Nash Dc Performed By: Luisa Torres, PETAR, RVT
--- NOTE | 2020-01-03 14:41 | STRESSREP ---
Stress Test Report Date: 01-03-2020 Procedure: Exercise tolerance test Indications: Shortness of breath/dyspnea on exertion Consent: Per the patient Procedure: The patient exercised on a Yariel protocol for 9 minutes and 18 seconds completing Stage III and 18 seconds of Stage IV achieving a peak heart rate of 179 bpm (96% predicted maximal heart rate) with a peak blood pressure 158/40 mmHg and a peak MET capacity of approximately 10 MET's. The baseline ECG demonstrated normal sinus rhythm. The peak exercise ECG demonstrated no obvious ECG changes. There were no cardiac dysrhythmias pretest, during exercise, or recovery. The functional capacity was considered good. The patient had no complaint of chest discomfort during exercise or recovery. The examination was discontinued secondary to dyspnea and dizziness. Impression: 1. Technically adequate (percent predicted maximal heart rate greater than 85%) exercise tolerance test 2. Peak exercise ECG with no obvious ECG changes 3. There were no cardiac dysrhythmias during exercise or recovery This note was generated with [employer] software. It may contain incorrect words, spelling, and punctuation that were not noted in checking the note before signing.
== END ==
PROVIDERS: PCP Family Medicine; Referring Provider Internal Medicine Cardiovascular Disease; Visit Provider Internal Medicine Cardiovascular Disease
DX: R06.02 Shortness of breath (principal); R06.00 Dyspnea, unspecified; R07.2 Precordial pain; R01.1 Cardiac murmur, unspecified; Q21.1 Atrial septal defect
CPT/HCPCS: 93017; 93225; 93226; 93306

== ENCOUNTER 2020-02-07 07:18 | Outpatient (RCR) | payer OTHER, SELFPAY ==
[2019-12-29 15:07] VITALS: BMI 22.0
[2020-02-07 09:49] LABS: Erythrocyte Sedimentation Rate < 1 mm/hr (0-20)
[2020-02-07 09:51] LABS: Absolute Lymphocyte Count 2.79 X10^3/uL (0.83-4.51); Absolute Neutrophil Count 2.6 X10^3/uL (2.0-7.7); Basophil# 0.04 X10^3/uL; Basophil% 0.7 % (0-1); Eosinophil# 0.16 X10^3/uL; Eosinophils% 2.6 % (0-5); Lymphocyte # 2.79 X10^3/ul (4.0); Lymphocyte % 45.7 % (19-41); Mean Corpuscular Hgb 30.8 pg (27.0-32.0); Mean Corpuscular Volume 88.1 fL (81-99); Mean Platelet Vol. 9.8 fl (6.2-12.0); Monocyte# 0.48 X10^3/uL; Monocyte% 7.9 % (0-10); NRBC Flagged by Analyzer 0 % (0-5); Neutrophil # 2.62 X10^3/uL (2.7-7.7); Neutrophil % 42.8 % (47-70); Platelet Count 209 K/mm3 (150-450); RBC Distribution Width CV 12.4 % (11.6-14.6); RBC Distribution Width SD 39.7 fl (35.1-43.9); Red Blood Count 4.54 M/mm3 (4.2-5.4); White Blood Count 6.1 K/mm3 (4.4-11.0)
[2020-02-07 10:08] LABS: AST(SGOT) 15 U/L (15-37); Alanine Aminotransfer ALT/SGPT 18 U/L (13-56); Albumin, Serum 3.5 g/dL (3.2-5.0); Alkaline Phosphatase 42 U/L (45-117); Anion Gap 5 (5-15); BUN 11 mg/dL (7-18); CRP < 2.90 mg/L (0.0-3.0); Calcium,Total 8.7 mg/dL (8.5-10.1); Chloride 106 mmol/L (98-107); Creatinine, Serum 0.84 mg/dL (0.55-1.02); EST Glomerular Filtration Rate 82 mL/min (>60); Est Glom Filt Rate - Afr Amer 99 mL/min (>60); Globulin 3.4 g/dL (2.2-4.2); Glucose 81 mg/dL (74-106); Potassium 3.9 mmol/L (3.5-5.1); Protein, Total 6.9 g/dL (6.4-8.2); Sodium Level 138 mmol/L (136-145)
== END 2020-02-07 18:00 | disposition home or self-care (01) ==
LOC: MTLAB 07:18
PROVIDERS: PCP Family Medicine; Referring Provider Internal Medicine Rheumatology; Visit Provider Internal Medicine Rheumatology
DX: M06.09 Rheumatoid arthritis without rheumatoid factor, multiple sites (principal); Z79.899 Other long term (current) drug therapy; R76.0 Raised antibody titer
CPT/HCPCS: 36415; 80053; 85025; 85652; 86140

== ENCOUNTER → 2020-02-24 17:58 | Outpatient (CLI) | payer OTHER, SELFPAY ==
[2019-12-29 15:07] VITALS: BMI 22.0
--- NOTE | 2020-02-24 18:15 | MRI_ITS ---
STUDY: MRI BRAIN WITH AND WITHOUT CONTRAST REASON FOR EXAM: Female, 34 years old. dysmetria. RIGHT eye blurring, RIGHT ear fuzziness x 2 weeks off and on. Recent onset of RIGHT cheek feeling of swelling. Failed finger to nose test yesterday. N/T of face TECHNIQUE: Standardized multiplanar fat and water weighted pulse sequences were obtained. Pt received 12ml DOtarem via IV was administered for the contrast portion of the examination. COMPARISON: 02/08/2019 FINDINGS: Normal size of the ventricles and extra-axial spaces for the patient''s age. Normal white matter tracts of the supratentorial brain. Normal bilateral basal ganglia. Normal thalami. There is no extra-axial fluid accumulation. Normal flow voids within the major intracranial circulation suggesting patency by spin echo criteria. Normal venous enhancement. There is no enhancing intra-axial or extra-axial abnormality. Normal sella turcica, pituitary gland, infundibular stalk, optic chiasm and hypothalamus. Normal tectal plate and pineal gland. Normal midbrain, jose and medulla. Normal cerebellum. Normal basal cisterns. Normal bilateral temporal bones. Normal bilateral internal auditory canals. No demonstrated orbital abnormality, within the constraints of a routine brain study. There is minor mucosal thickening of the maxillary sinuses bilaterally.. Normal calvarium and skull base. Normal visualized soft tissue structures. Normal visualized upper cervical spine. MRI/Brain W/WO Contrast IMPRESSION: Normal unenhanced and enhanced MRI of the brain. Minor bilateral maxillary sinus disease. Electronically Signed: Ameya Kwan MD at 20:01 EST , Service support ,
== END ==
LOC: MRI 17:59
PROVIDERS: PCP Family Medicine; Referring Provider Family Medicine; Visit Provider Family Medicine
DX: R27.8 Other lack of coordination (principal)
CPT/HCPCS: 70553; A9575

== ENCOUNTER → 2020-03-02 13:51 | Outpatient (CLI) | payer OTHER, SELFPAY ==
[2019-12-29 15:07] VITALS: BMI 22.0
[2020-03-02 14:40] LABS: Hemoglobin 14.6 g/dL (12.0-15.0); Mean Corp Hgb Conc 33.2 g/dL (32-36); Mean Corpuscular Hgb 30.3 pg (27.0-32.0); Mean Corpuscular Volume 91.3 fL (81-99); Platelet Count 220 K/mm3 (150-450); RBC Distribution Width CV 12.3 % (11.6-14.6); RBC Distribution Width SD 40.9 fl (35.1-43.9); Red Blood Count 4.82 M/mm3 (4.2-5.4); White Blood Count 4.8 K/mm3 (4.4-11.0)
[2020-03-02 15:13] LABS: Ferritin 71 ng/mL (8-252); Free T3 2.1 pg/mL (2.18-3.98); T4 Free Direct 1.35 ng/dL (0.76-1.46); Thyroid Stim Hormone (TSH) 1.21 uIU/mL (0.358-3.74)
== END ==
PROVIDERS: PCP Family Medicine; Visit Provider Obstetrics & Gynecology
DX: N92.1 Excessive and frequent menstruation with irregular cycle (principal); E03.9 Hypothyroidism, unspecified
CPT/HCPCS: 82728; 84439; 84443; 84481; 85027; 86376

== ENCOUNTER → 2020-04-03 09:36 | Outpatient (CLI) | payer OTHER, SELFPAY ==
[2019-12-29 15:07] VITALS: BMI 22.0
[2020-03-10 09:10] LABS: Thyroid Peroxidase AB < 9 IU/mL (0-34)
== END ==
PROVIDERS: PCP Family Medicine; Visit Provider Obstetrics & Gynecology
DX: R94.6 Abnormal results of thyroid function studies (principal)
CPT/HCPCS: 86376

== ENCOUNTER → 2020-04-25 16:24 | Outpatient (CLI) | payer OTHER, SELFPAY ==
[2019-12-29 15:07] VITALS: BMI 22.0
--- NOTE | 2020-04-25 16:26 | RAD_ITS ---
HISTORY: FACET ARTHROPATHY COMPARISON: CT scan of the abdomen and pelvis is available from February 06, 2019. FINDINGS: # of images incl. paperwork: 3 XR Spine Lumbar 2 or 3 Views: There remains only 4 vet-pan-ruzhxaw lumbar vertebral bodies, normal developmental variability with fairly heavy sacralization of the S1 segment. Surgical clips are present within the right upper quadrant superimposed over the lowest pair of ribs. These are new. Some pelvic phleboliths are present. Lumbar vertebral bodies are normal in height. Lumbar disc spaces are well maintained. No acute lumbar spine fracture or subluxation. Facets are fairly well aligned without significant arthropathy RAD/Lumbar Spine 2 or 3 Views IMPRESSION: No acute lumbar spine fracture or subluxation. at 0637 Reported and signed by: Scott Jose MD Electronically Signed: Scott Jose MD at 6:36 EST Tel , Service support ,
== END ==
PROVIDERS: PCP Family Medicine; Referring Provider Family Medicine; Visit Provider Family Medicine
DX: M47.819 Spondylosis without myelopathy or radiculopathy, site unspecified (principal)
CPT/HCPCS: 72100

== ENCOUNTER → 2020-05-15 16:36 | Outpatient (CLI) | payer OTHER, SELFPAY ==
[2019-12-29 15:07] VITALS: BMI 22.0
== END ==
LOC: MFPLAB 16:41 → LABSPEC 16:43
PROVIDERS: PCP Family Medicine; Referring Provider Family Medicine; Visit Provider Family Medicine
DX: R09.1 Pleurisy (principal)
CPT/HCPCS: 87635; U0002

== ENCOUNTER 2020-05-22 17:14 | Emergency (ER) | payer OTHER, SELFPAY ==
[2019-12-29 15:07] VITALS: BMI 22.0
[2020-05-22 17:16] VITALS: BP 123/78; PULSE 92; RESP 23; TEMP 36.9; O2SAT 100; BMI 24.6
--- NOTE | 2020-05-22 18:34 | CT_ITS ---
HISTORY: right rib pain TECHNIQUE: Helically acquired images were obtained of the chest following the intravenous administration of 75 ML of Isovue-370 Iodinated contrast. as per pulmonary angiogram protocol with 2D , without 3-D MIP reconstructions. A radiation dose optimization technique was used for this scan. COMPARISON: A CT scan of the abdomen and pelvis is from February 06, 2019. That study begins at the level of the aortic outflow tract and images through the lower lungs FINDINGS: # of images incl. paperwork: 1043 Lungs are clear but for trace basilar atelectasis. No effusions. Within the thoracic spinebony alignment is normal. Vertebral body height is normal. Facets are well aligned. No rib lesions are perceived. Heart is not enlarged. Thoracic aorta is normal. No aneurysms, stenoses, dissections, nor occlusions. No axillary or mediastinal adenopathy. No pulmonary emboli. Visualized portions of the upper abdomen are without identified acute pathology. CT/CTA Chest W/WO Contrast IMPRESSION: No pulmonary embolism, aortic aneurysm, or aortic dissection. Individualized dose optimization techniques were used for this CT. at 2210 Reported and signed by: Scott Jose MD Electronically Signed: Scott Jose MD at 22:09 EDT Tel , Service support ,
--- NOTE | 2020-05-22 18:34 | EKG12_ITS ---
Test Reason : SOB Blood Pressure : / mmHG Vent. Rate : 074 BPM Atrial Rate : 074 BPM P-R Int : 136 ms QRS Dur : 094 ms QT Int : 376 ms P-R-T Axes : 074 082 065 degrees QTc Int : 417 ms Normal sinus rhythm Normal ECG Confirmed by MARTIN ZUÑIGA, PIPER ([id number]), editor city KEESHA GRAJEDA ([id number]) on 05/25/2020 2:58:01 PM Referred By: ISHAN Confirmed By:KUSH SALAZAR MD
--- NOTE | 2020-05-22 18:34 | ED.VIS.GEN ---
History of Present Illness Chief Complaint: Shortness of Breath Informant: Patient Narrative: 4-year-old female presenting with shortness of breath. She states she started being short of breath about 2 weeks ago. Initially she felt kind of unwell but did not have a cough, fever, change of taste or smell. She was seen at the urgent care and had a chest x-ray she states was negative. She still complains of shortness of breath and went to her doctor in follow-up who told her she had pleurisy. She has been done a course of steroids and does not feel improved. She called her primary care physician back and he told her to come to the emergency room. Today she also complains of some right rib pain in the right lateral ribs. This feels sharp in nature. - Past Medical History (1) Renteria's palsy Status: Chronic (2) Asthma Status: Chronic (3) Depression Status: Chronic (4) Immunosuppressed status Status: Chronic (5) PFO (patent foramen ovale) Status: Chronic Past Medical History - Allergies and Home Meds Allergies/Adverse Reactions: Allergies doxycycline Allergy (Severe, Verified 05/22/20 17:16) Unknown Penicillins Allergy (Severe, Verified 05/22/20 17:16) Unknown piperacillin sodium [From Zosyn] Allergy (Severe, Verified 05/22/20 17:16) Anaphylaxis tazobactam sodium [From Zosyn] Allergy (Severe, Verified 05/22/20 17:16) Anaphylaxis vancomycin Allergy (Severe, Verified 05/22/20 17:16) Unknown bee pollen [Bee Pollen] Allergy (Mild, Verified 05/22/20 17:16) Swelling tramadol Adverse Reaction (Severe, Verified 05/22/20 17:16) Nausea/Vom/Diarrhea Primary Care Physician: Nash Dc MD [Primary Care Provider] - Prior records reviewed: Yes Past Medical History: - - Reviewed in problem list Surgical History: appendectomy, - - R. oophorectomy Lives: Spouse/ Significant Other Smoking Status: Never smoker Alcohol: None Drugs: None - Family History Maternal Family History: Family History (Last Reviewed 12/29/19 @ 15:14 by Ele Rock) Grandmother Cancer Arthritis Mother Arthritis Depression Other CAD (coronary artery disease) Mixed hyperlipidemia Family History: Reports: - - Her mother has COPD Review of Systems General: Denies: Chills, Fever, Sweats Eyes: Denies: Visual changes - bilaterally, Diplopia ENT: Denies: Rhinorrhea, Sore throat Cardiovascular: Reports: Chest pain - Right lower rib pain Respiratory: Reports: Dyspnea, Dyspnea on exertion Gastrointestinal: Denies: Abdominal pain, Nausea, Vomiting Genitourinary: Denies: Dysuria Musculoskeletal: Denies: Myalgias, Arthralgias Skin: Denies: Rash, Abscess Neurological: Denies: Headache, Weakness, Parasthesia, Numbness Psych: Reports: Anxiety. Denies: Depression, Suicidal thoughts, Suicidal ideations Physical Exam Vital Signs/Narrative: Vital Signs Temp Pulse Resp BP Pulse Ox 05/22/20 17:16 98.5 F 92 23 H 123/78 H 100 Inital Vital Signs reviewed: Yes General: Well nourished, No Acute Distress Head: Normocephalic, Atraumatic Eyes: Perrl, EOMI ENT: Moist mucous membranes Cardiovascular: Regular rate, Regular rhythm Respiratory: No distress, CTA bilaterally, Chest nontender Back: Nontender, Normal Inspection Extremities: Nontender, No edema Skin: Normal color, No rash. Negative for: Cyanosis, Diaphoresis Neurological: Alert, Oriented x3, Cranial nerves II-XII grossly intact Psychological: Normal affect, Normal Mood Diagnostic/Tx/Re-eval Clinical Impression(s) from Imaging Studies Chest CTA 05/22/20 18:34 IMPRESSION: No pulmonary embolism, aortic aneurysm, or aortic dissection. Individualized dose optimization techniques were used for this CT. at 2210 Reported and signed by: Scott Jose MD Electronically Signed: Scott Jose MD at 22:09 EDT Tel , Service support , Venous Duplex 05/22/20 20:34 IMPRESSION: No sonographic evidence of deep venous thrombosis of the bilateral lower extremities. Electronically Signed: Luciano Conti MD at 21:37 EDT Tel , Service support , Laboratory Data 05/22/20 05/22/20 05/22/20 19:10 19:10 Unknown WBC 11.4 H RBC 5.21 Hgb 15.7 H Hct 46.0 MCV 88.3 MCH 30.1 MCHC 34.1 RDW Std Deviation 38.0 RDW Coeff of Keiko 11.9 Plt Count 247 MPV 9.7 Immature Gran % (Auto) 1.000 H Neut % (Auto) 55.7 Lymph % (Auto) 34.9 [place] % (Auto) 6.0 Eos % (Auto) 1.8 Baso % (Auto) 0.6 Absolute Neuts (auto) 6.4 Absolute Lymphs (auto) 3.97 Nucleated RBC % 0 Sodium 136 Potassium 3.6 Chloride 104 Carbon Dioxide 27.0 Anion Gap 5 BUN 11 Creatinine 0.77 Estim Creat Clear Calc 102.87 Est GFR (MDRD) Af Amer 110 Est GFR (MDRD) Non-Af 91 BUN/Creatinine Ratio 14.4 Glucose 84 Calcium 9.4 Troponin I < 0.015 Serum , Qual POSITIVE H - Medical Decision Making 34-year-old female presenting with shortness of breath for the last couple of weeks. She has had an outpatient chest x-ray which was normal. Patient did a prednisone burst as well. This is not helping her either. She was told she has pleurisy by her PCP. Patient had blood work drawn which shows white blood cell count 11.54, hemoglobin 15.7, platelets 247. Renal function electrolytes are normal. Troponin is normal. Could not use the PERC rule because patient was tachypneic. Patient EKG interpreted by myself shows a sinus rhythm at 74 bpm without signs of ischemic changes. Patient's hCG was positive. She states that last time she was she had a DVT. This does raise concern for PE. We did attempt to get bilateral lower extremity ultrasounds and these were negative. After discussion patient feels she needs to get a CTA of the chest because she is concerned for PE. She does acknowledge the risks versus benefits. Patient had CTA of the chest which did not show any acute pathology or PEs as interpreted by the radiologist. At this point I ambulated the patient in the ER on pulse ox and she maintain sats of 97%. Patient counseled of all findings. I recommended that she did follow-up with the tub chucker that her primary care had set up for her on an outpatient basis. She is counseled she may return at any time. She should also follow-up with her [employer]'s given that she is . Impression: 1. First trimester 2. Dyspnea ED Disposition - Plan for ED Patient: Disposition: Home or Assisted Living Instructions: ED Dyspnea Referrals: Nash Dc MD [Primary Care Provider] -
[2020-05-22] MEDS: Aspirin 81 MG TAB.CHEW 324 MG PO (19:07)
[2020-05-22 19:10] VITALS: O2SAT 97
[2020-05-22 19:21] LABS: Absolute Lymphocyte Count 3.97 X10^3/uL (0.83-4.51); Absolute Neutrophil Count 6.4 X10^3/uL (2.0-7.7); Basophil# 0.07 X10^3/uL; Basophil% 0.6 % (0-1); Eosinophil# 0.21 X10^3/uL; Eosinophils% 1.8 % (0-5); Hemoglobin 15.7 g/dL (12.0-15.0); Lymphocyte # 3.97 X10^3/ul (4.0); Lymphocyte % 34.9 % (19-41); Mean Corp Hgb Conc 34.1 g/dL (32-36); Mean Corpuscular Hgb 30.1 pg (27.0-32.0); Mean Corpuscular Volume 88.3 fL (81-99); Mean Platelet Vol. 9.7 fl (6.2-12.0); Monocyte# 0.68 X10^3/uL; NRBC Flagged by Analyzer 0 % (0-5); Neutrophil # 6.35 X10^3/uL (2.7-7.7); Neutrophil % 55.7 % (47-70); Platelet Count 247 K/mm3 (150-450); RBC Distribution Width CV 11.9 % (11.6-14.6); Red Blood Count 5.21 M/mm3 (4.2-5.4); White Blood Count 11.4 K/mm3 (4.4-11.0)
[2020-05-22 19:37] LABS: Anion Gap 5 (5-15); BUN 11 mg/dL (7-18); BUN/Creat Ratio 14.4 RATIO (10-20); Calcium,Total 9.4 mg/dL (8.5-10.1); Chloride 104 mmol/L (98-107); Creatinine, Serum 0.77 mg/dL (0.55-1.02); EST Glomerular Filtration Rate 91 mL/min (>60); Est Glom Filt Rate - Afr Amer 110 mL/min (>60); Estimated Creatinine Clearance 102.87 ml/min; Glucose 84 mg/dL (74-106); Potassium 3.6 mmol/L (3.5-5.1); Sodium Level 136 mmol/L (136-145)
[2020-05-22 19:51] VITALS: BP 116/71; PULSE 71; RESP 26; O2SAT 100
[2020-05-22 20:15] LABS: Internal QC Validated? YES +Cl - CLEAR BKGD; Pregnancy, Serum, hCG Quali. POSITIVE Negative
--- NOTE | 2020-05-22 20:34 | US_ITS ---
INDICATION: SOB EXAMINATION: US Venous Duplex LE Bilat Complete TECHNIQUE: Rojas scale, pulse wave, and color flow Doppler imaging was performed of the lower extremity venous system. The bilateral greater saphenous, common femoral, femoral, and popliteal veins were interrogated. COMPARISON: None. FINDINGS: There is normal compression, augmentation, and signal throughout the visualized deep lower extremity veins. No mass or fluid collection. US/Venous Duplex Imag/Pan Extrem IMPRESSION: No sonographic evidence of deep venous thrombosis of the bilateral lower extremities. Electronically Signed: Luciano Conti MD at 21:37 EDT Tel , Service support ,
[2020-05-22 22:10] VITALS: BP 125/85; PULSE 83; RESP 28; O2SAT 100
[2020-05-22 22:47] VITALS: O2SAT 99
--- NOTE | 2020-05-22 22:47 | ED.RN ---
PT HR STARTED IN THE 70'S AND STAYED AT 96 WHILE AMBULATING. PULSE OX REMAINED STABLE. PT WAS TACHYPNEIC IN AND FELT SOB WHILE AMBULATING BUT NOT DIAPHORETIC
[2020-05-22 23:38] VITALS: BP 127/74; PULSE 76; RESP 20; O2SAT 98
[2020-05-25 17:14] LABS: hCG Titer Quant., Serum 62 mIU/mL (1-3)
== END 2020-05-22 23:39 | disposition home or self-care (01) ==
PROVIDERS: Emergency Provider Student in an Organized Health Care Education/Training Program; PCP Family Medicine
DX: O26.891 Other specified pregnancy related conditions, first trimester (principal); R06.00 Dyspnea, unspecified; Z3A.00 Weeks of gestation of pregnancy not specified; Q21.1 Atrial septal defect; G51.0 Bell's palsy; J45.909 Unspecified asthma, uncomplicated
CPT/HCPCS: 71275; 80048; 84484; 84702; 84703; 85025; 93005; 93970; 99285; Q9967; A4216

== ENCOUNTER → 2020-05-25 15:48 | Outpatient (CLI) | payer OTHER, SELFPAY ==
[2020-05-22 17:16] VITALS: BMI 24.6
[2020-05-25 17:09] LABS: hCG Titer Quant., Serum 184 mIU/mL (1-3)
[2020-05-30 03:07] LABS: Chlamydia By Nucleic Acid AMP Negative (Negative)
[2020-05-30 11:31] LABS: Gonococcus By Nucleic Acid AMP Negative (Negative)
== END ==
PROVIDERS: PCP Family Medicine; Visit Provider Obstetrics & Gynecology
DX: Z11.3 Encounter for screening for infections with a predominantly sexual mode of transmission (principal)
CPT/HCPCS: 36415; 84702; 87491; 87591

== ENCOUNTER → 2020-05-29 07:21 | Outpatient (CLI) | payer OTHER, SELFPAY ==
[2020-05-22 17:16] VITALS: BMI 24.6
[2020-05-29 10:34] LABS: hCG Titer Quant., Serum 172 mIU/mL (1-3)
== END ==
PROVIDERS: PCP Family Medicine; Referring Provider Obstetrics & Gynecology; Visit Provider Obstetrics & Gynecology
DX: O20.0 Threatened abortion (principal); Z3A.00 Weeks of gestation of pregnancy not specified
CPT/HCPCS: 36415; 84702

== ENCOUNTER → 2020-06-01 13:48 | Outpatient (CLI) | payer OTHER, SELFPAY ==
[2020-05-22 17:16] VITALS: BMI 24.6
--- NOTE | 2020-06-01 | POC_PTH ---
PATIENT: FANNY CELAYA LOC: [facility] U#:[id number] AGE/SX: 39/F ROOM: RE06/01/[address]: Dr. Phillip Holder MD : 1985 BED: DIS: SPEC #: [id number] RECD: 06/01/20 14:55 STATUS: TIFFANIE REMoise #: [id number] CHAVEZ: 06/01/20 00:[address]: Phillip Holder DEPT: SURGICAL PATHOLOGY RECD BY: Bryant Chi ENTERED: 06/04/20 07:09 SP TYPE: PROD CONC OTHR DR: Dr. Nash Dc MD Tissues: Product of conception, NOS Procedures: Surgery Specimen Level IV HEADER OPERATION: Dilation and evacuation PRE-OP DIAGNOSIS: Nonviable TISSUE SUBMITTED: Products of conception MICROSCOPIC DIAGNOSIS Products of conception: Secretory endometrium with glandular and stromal breakdown and focal decidual changes. See comment. ANTONIO:kristine 06/06/2020 COMMENT Chorionic villi are not seen in the specimen. The entire specimen is examined. This case is discussed with Dr. Holder on 06/06/20. This case has been reviewed in consultation with Dr. Gaytan who concurs with the above diagnosis. MICROSCOPIC DESCRIPTION Slides are reviewed. GROSS DESCRIPTION Received in fixative is one container labeled with the patient's name and designated products of conception. The specimen consists of multiple irregular fragments of castañeda tissue that in aggregate measure 7 x 5 x 0.2 cm. No parts are grossly recognized. Captain/Check Airman portions are submitted in two cassettes. / AM:kristine 06/04/20 The rest of the specimen is submitted in two more cassettes, 3 & 4. / SJ:kristine 06/05/20 TC:5 CPT: 79054
[2020-06-01 15:20] LABS: T4 Free Direct 1.06 ng/dL (0.76-1.46); Thyroid Stim Hormone (TSH) 2.33 uIU/mL (0.358-3.74)
[2020-06-01 15:21] LABS: Free T3 2.5 pg/mL (2.18-3.98)
== END ==
PROVIDERS: PCP Family Medicine; Visit Provider Obstetrics & Gynecology
DX: N93.9 Abnormal uterine and vaginal bleeding, unspecified (principal)
CPT/HCPCS: 36415; 84439; 84443; 84481; 88305

== ENCOUNTER 2020-06-04 10:27 | Day surgery (SDC) | payer OTHER, SELFPAY ==
[2020-06-04] VITALS (7 sets, daily range): BP systolic 111–136; BP diastolic 66–88; PULSE 72–78; RESP 14–16; TEMP 36.4–37.2; O2SAT 99–100; BMI 25.2
--- NOTE | 2020-06-04 | POC_PTH ---
PATIENT: FANNY CELAYA LOC: [facility] [place][id number] AGE/SX: 34/F ROOM: RE06/04/[address]: Dr. Phillip Holder MD : 1985 BED: DIS: 06/04/2020 SPEC #: [id number] RECD: 06/04/20 15:46 STATUS: TIFFANIE REMoise #: [id number] CHAVEZ: 06/04/20 00:[address]: Phillip Holder DEPT: SURGICAL PATHOLOGY RECD BY: Samir Heredia ENTERED: 06/05/20 07:26 SP TYPE: PROD CONC OTHR DR: Dr. Nash Dc MD Tissues: Product of conception, NOS Procedures: Surgery Specimen Level IV HEADER OPERATION: Suction dilation and curettage PRE-OP DIAGNOSIS: Incomplete spontaneous TISSUE SUBMITTED: Products of conception MICROSCOPIC DIAGNOSIS Products of conception: Fragments of secretory endometrium with focal decidual change. See comment. SJ:kristine 06/06/2020 COMMENT Chorionic villi are not seen. Correlation with clinical findings and appropriate follow up are necessary. Please correlate with the previous specimen ([id number]) products of conception with diagnosis of secretory endometrium and decidual changes and absence of chorionic villi. MICROSCOPIC DESCRIPTION Slides are reviewed. GROSS DESCRIPTION Received in fixative is one container labeled with the patient's name and designated products of conception. The specimen consists of multiple irregular fragments of light castañeda soft tissue that in aggregate measure 3 x 2.5 x 0.2 cm. No tissue is identified. The specimen is totally submitted in two cassettes. / SJ:kristine 06/05/20 TC:5 CPT: 91045
--- NOTE | 2020-06-04 10:42 | HP.PCM_ITS ---
History and Physical Surgical History and Physical Date: 06/04/2020 Name: MICHELLE CELAYA Age: 34 Date of : 1985 Michelle Celaya, a 34 year old female 2 0 1 0 2, presents for Suction dilation and Curettage -- Michelle is here for suction dilation and curettage for missed . Pt with postiive UPT and hcg positve but falling hcg levels and unresolved bleeding MEDICATIONS HISTORY: Patient is also takin. albuterol sulfate HFA 90 mcg/actuation aerosol inhaler, prn 2. Vitamin D2 1,250 mcg (50,000 unit) capsule, weekly 3. Cimzia 400 mg/2 mL (200 mg/mL x 2) subcutaneous syringe kit, q 2 weeks 4. folic acid 1 mg tablet, daily 5. melatonin 1 mg tablet, qhs 6. Vitamin B-12 1,000 mcg tablet, 2 daily ALLERGIES: Doxycycline, Vomiting, Tramadol, Vomiting, Vancomycin, Anaphylaxis, Piperacillin, Anaphylaxis, Zosyn and Anaphylaxis Infections - Chicken pox Illnesses - RA, Ashtma, Reflux Accidents - no injuries of consequence Hospitalizations - see surgery Review of Systems: GENERAL - breast tenderness SKIN - Denies skin changes EYES - Denies visual changes EARS - Denies difficulty hearing NOSE - Denies nasal congestion or bleeding MOUTH - Denies sore throat or difficulty swallowing NECK - Denies pain or swelling RESPIRATORY - Denies shortness of breath or wheezing CARDIOVASCULAR - Denies palpitations or chest pain GASTROINTESTINAL - mild nausea GENITOURINARY - spotting MUSCULOSKELETAL - Denies joint or muscle pain NEUROLOGICAL - Denies localized numbness or weakness PSYCHIATRIC - Denies depression or anxiety ENDOCRINE - Denies heat or cold intolerance, weight loss or gain HEMATO-IMMUNOLOGIC - Denies excessive bleeding with cuts SOCIAL HISTORY: Alcohol Use - socially Smoking - used to smoke but quit Diet - moderate, balanced diet Lifestyle - high stress lifestyle and Exercise - regular Seat Belt Use - always Employer - [employer] 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 08/05/2017 Dx laparoscopy, Rt ovarian cyst aspiration, Rt oophorectomy ; Amelie High M.D. - 2. 02/06/2019 Dx laparoscopy, evacuation of hemoperitoneum ; Alejandra Navarrete MD - 3. wisdom teeth, 2007 ; - 4. Appendectomy, 2011 ; - PHYSICAL EXAM BP- 120/82 Sitting, Right arm, regular cuff Temp- 99.1 Taken Orally Weight- 163.12223 lbs Height- 66.5 inch BMI:25.97 CONSTITUTIONAL - NAD, well nourished, and well developed SKIN - No rash, lesions, or ulcers HEENT - Normocephalic, PERRLA, EOMI NECK - No nodes, no nuchal rigidity and thyroid normal size and texture LYMPH NODES - Palpation of lymph nodes in neck and groins within normal limits ABDOMEN - Without hepatosplenomegaly, distention, masses, rebound, or guarding; normal bowel sounds; no hernias EXTREMITIES - No edema or calf tenderness NEUROLOGICAL - Cranial nerves II-XII grossly intact PSYCHIATRIC - A and O to time, place, person, mood and affect External Genital Vagina - non-tender without lesions Urethra/Urethral Meatus - non-tender Bladder - non-tender Vagina - vaginal smith are pink and moist without loss of rugae and no evidence of atrophy and dry blood in posterior cul de sac Cervix - without cervical motion tenderness and has normal size and features without evident lesions Uterus - 5-6 cm in size, mobile and nontender and retroverted Adnexa - clear without masses or tenderness ASSESSMENT/PLAN: 1. Incomplete Spontaneous Without Complication Pt with falling hcg, bleeding that is unresolve. s/p office D&C with unresolved bleeding. For Suction dilation and curettage R/b/a of procedure discussed, pt states understanding and wishes to proceed. All questions were answered and consent was signed.
[2020-06-04] MEDS: Lactated Ringers 1,000 ML 100 ML IV (11:35)
--- NOTE | 2020-06-04 13:10 | PCM.DC.D&C ---
Discharge Diet: No Restrictions Discharge Activity: Return to Normal Activity, May Drive, May Shower May resume sexual activity in: 4-6 weeks Weight Bearing Status: Weight bearing as tolerated Call your doctor if your incision/area has: Continuous Slow Oozing, Foul Smelling Discharge Call your doctor if you observe: Fever of 101 or Higher, Shortness of breath, Chest pain Allergies/Adverse Reactions: Allergies doxycycline Allergy (Severe, Verified 06/04/20 10:50) Unknown Penicillins Allergy (Severe, Verified 06/04/20 10:50) Unknown piperacillin sodium [From Zosyn] Allergy (Severe, Verified 06/04/20 10:50) Anaphylaxis tazobactam sodium [From Zosyn] Allergy (Severe, Verified 06/04/20 10:50) Anaphylaxis vancomycin Allergy (Severe, Verified 06/04/20 10:50) Unknown bee pollen [Bee Pollen] Allergy (Mild, Verified 06/04/20 10:50) Swelling tramadol Adverse Reaction (Severe, Verified 06/04/20 10:50) Nausea/Vom/Diarrhea Medications to take at Discharge calcium carbonate 600 mg calcium (1,500 mg) tablet 600 mg PO BID 12/08/18 Albuterol Inhaler [Ventolin Hfa] 90 mcg INHALATION Q6H PRN PRN 02/06/19 cholecalciferol (vitamin D3) 50 mcg (2,000 unit) capsule 1,000 unit PO DAILY cap 12/29/19 cyanocobalamin (vitamin B-12) 1,000 mcg tablet 1,000 mcg PO DAILY 12/29/19 Certolizumab Pegol [Cimzia] 400 mg SQ .Q2WEEK 05/22/20 Vits [Prenatabs FA] 1 tablet PO DAILY 06/01/20 Orders to be completed after discharge: Type & Screen - PAT ONLY Time Frame: 06/01/20, Facility: [facility], Location: Laboratory CBC-Complete Blood Cnt No Diff Time Frame: 06/01/20, Facility: [facility], Location: Laboratory Primary Care Physician: Nash Dc MD [Primary Care Provider] - Test Results: Test results from this visit will be discussed in further detail at your follow-up appointment, if applicable. Please Follow Up With: Phillip Holder MD When: 1-2 weeks
--- NOTE | 2020-06-04 13:11 | OP.PCM_ITS ---
Report of Operation Date of Procedure: 06/04/20 Pre-Operative Diagnosis: Spontaneous , abnormal uterine bleeding Post-Operative Diagnosis: Spontaneous , abnormal uterine bleeding Surgery/Procedure Performed:: Suction dilation and curettage Description of Surgical Findings:: Surgeon: Phillip Holder MD Anesthesia: MAC EBL: 20cc IV fluids: 600cc Urine output: not measured Complications: None Specimen: Products of conception Findings: Low cervix. No bleeding noted. 7 mm curved Suction curette used. Consent: Patient found to have positive urine test and positive hCG level but with falling hCG level and abnormal uterine bleeding in need of suction dilation curettage. Patient understands the risk of the procedure include but are not limited to visceral or vascular injury, prolonged hospitalization, blood loss an d need transfusion, reoperation. They state understanding wish to proceed. All questions answered consent was signed. Procedure: Patient was brought back to the OR where MAC anesthesia found to be adequate. 500 mg of azithromycin IV given for infection prophylaxis. Patient was apparent draped in dorsolithotomy position with yellowfin stirrups. Weighted speculum placed in posterior aspect of vagina. Cervical dilators used to dilate cervix. Above points were noted. 7 mm curved curette was used. Tissue sent to pathology. Good hemostasis was noted. All counts correct x2. Patient ramiro ated procedure well and was brought to recovery in stable condition. cat and dog bather: None
== END 2020-06-04 15:32 | disposition home or self-care (01) ==
LOC: SDC 10:27 → AC 10:28
PROVIDERS: PCP Family Medicine; Referring Provider Obstetrics & Gynecology; Visit Provider Obstetrics & Gynecology
PROC: (CPT 59812; principal; 2020-06-04 11:45)
DX: O03.1 Delayed or excessive hemorrhage following incomplete spontaneous abortion (principal); K21.9 Gastro-esophageal reflux disease without esophagitis; Z79.899 Other long term (current) drug therapy; Z87.891 Personal history of nicotine dependence; Z88.0 Allergy status to penicillin; Z88.1 Allergy status to other antibiotic agents; Z88.5 Allergy status to narcotic agent; Z88.8 Allergy status to other drugs, medicaments and biological substances; Z90.721 Acquired absence of ovaries, unilateral; J45.909 Unspecified asthma, uncomplicated
CPT/HCPCS: 59812; 87426; 88305; C9803; J7120; J2405

== ENCOUNTER → 2020-06-14 09:39 | Outpatient (CLI) | payer OTHER, SELFPAY ==
[2020-06-04 10:51] VITALS: BMI 25.2
[2020-06-14 11:06] LABS: hCG Titer Quant., Serum 192 mIU/mL (1-3)
[2020-06-14 18:21] LABS: Hematocrit 49.4 % (37-47); Hemoglobin 16.1 g/dL (12.0-15.0); Mean Corp Hgb Conc 32.6 g/dL (32-36); Mean Platelet Vol. 9.5 fl (6.2-12.0); Platelet Count 235 K/mm3 (150-450); RBC Distribution Width SD 39.5 fl (35.1-43.9); Red Blood Count 5.55 M/mm3 (4.2-5.4); White Blood Count 7.1 K/mm3 (4.4-11.0)
[2020-06-14 18:52] LABS: ALB/GLOB Ratio 1.1 RATIO (0.9-2.4); AST(SGOT) 16 U/L (15-37); Alanine Aminotransfer ALT/SGPT 31 U/L (13-56); Albumin, Serum 4.4 g/dL (3.2-5.0); Alkaline Phosphatase 55 U/L (45-117); Anion Gap 5 (5-15); BUN 9 mg/dL (7-18); BUN/Creat Ratio 10.9 RATIO (10-20); Calcium,Total 9.5 mg/dL (8.5-10.1); Chloride 106 mmol/L (98-107); Creatinine, Serum 0.83 mg/dL (0.55-1.02); EST Glomerular Filtration Rate 83 mL/min (>60); Est Glom Filt Rate - Afr Amer 101 mL/min (>60); Globulin 3.9 g/dL (2.2-4.2); Glucose 85 mg/dL (74-106); Potassium 4.1 mmol/L (3.5-5.1); Protein, Total 8.3 g/dL (6.4-8.2); Sodium Level 136 mmol/L (136-145)
== END ==
PROVIDERS: PCP Family Medicine; Visit Provider Obstetrics & Gynecology
DX: O03.4 Incomplete spontaneous abortion without complication (principal)
CPT/HCPCS: 36415; 80053; 84702; 85027; 86900; 86901

== ENCOUNTER → 2020-06-18 15:32 | Outpatient (CLI) | payer OTHER, SELFPAY ==
[2020-06-04 10:51] VITALS: BMI 25.2
[2020-06-18 17:20] LABS: hCG Titer Quant., Serum 171 mIU/mL (1-3)
== END ==
PROVIDERS: PCP Family Medicine; Visit Provider Obstetrics & Gynecology
DX: O00.90 Unspecified ectopic pregnancy without intrauterine pregnancy (principal); Z3A.00 Weeks of gestation of pregnancy not specified
CPT/HCPCS: 36415; 84702

== ENCOUNTER → 2020-06-21 08:53 | Outpatient (CLI) | payer OTHER, SELFPAY ==
[2020-06-04 10:51] VITALS: BMI 25.2
[2020-06-21 11:14] LABS: hCG Titer Quant., Serum 186 mIU/mL (1-3)
[2020-06-21 12:39] LABS: Erythrocyte Sedimentation Rate < 1 mm/hr (0-30)
[2020-06-21 12:51] LABS: CRP < 2.90 mg/L (0.0-3.0)
== END ==
PROVIDERS: Internal Medicine Pulmonary Disease; PCP Family Medicine; Referring Provider Obstetrics & Gynecology; Visit Provider Obstetrics & Gynecology
DX: O00.90 Unspecified ectopic pregnancy without intrauterine pregnancy (principal); Z3A.00 Weeks of gestation of pregnancy not specified; O26.899 Other specified pregnancy related conditions, unspecified trimester; R06.00 Dyspnea, unspecified; R09.1 Pleurisy; I47.1 Supraventricular tachycardia
CPT/HCPCS: 36415; 84702; 85652; 86140

== ENCOUNTER → 2020-06-24 13:40 | Outpatient (CLI) | payer OTHER, SELFPAY ==
[2020-06-04 10:51] VITALS: BMI 25.2
[2020-06-24 14:19] LABS: AST(SGOT) 10 U/L (15-37); Alanine Aminotransfer ALT/SGPT 23 U/L (13-56); Creatinine, Serum 0.65 mg/dL (0.55-1.02); EST Glomerular Filtration Rate 111 mL/min (>60); Est Glom Filt Rate - Afr Amer 134 mL/min (>60)
[2020-06-24 14:23] LABS: hCG Titer Quant., Serum 120 mIU/mL (1-3)
[2020-06-24 14:27] LABS: Hematocrit 38.8 % (37-47); Hemoglobin 12.7 g/dL (12.0-15.0); Mean Corp Hgb Conc 32.7 g/dL (32-36); Mean Corpuscular Hgb 28.7 pg (27.0-32.0); Mean Corpuscular Volume 87.6 fL (81-99); Mean Platelet Vol. 10.1 fl (6.2-12.0); Platelet Count 186 K/mm3 (150-450); RBC Distribution Width CV 12.4 % (11.6-14.6); RBC Distribution Width SD 39.8 fl (35.1-43.9); Red Blood Count 4.43 M/mm3 (4.2-5.4); White Blood Count 6.7 K/mm3 (4.4-11.0)
== END ==
PROVIDERS: PCP Family Medicine; Visit Provider Obstetrics & Gynecology
DX: O00.90 Unspecified ectopic pregnancy without intrauterine pregnancy (principal); Z3A.00 Weeks of gestation of pregnancy not specified
CPT/HCPCS: 36415; 82565; 84450; 84460; 84702; 85027

== ENCOUNTER 2020-06-25 11:34 | Outpatient (CLI) | payer OTHER, SELFPAY ==
[2020-06-04 10:51] VITALS: BMI 25.2
[2020-06-25] VITALS (11 sets, daily range): BP systolic 101–139; BP diastolic 45–82; PULSE 54–81; RESP 16; TEMP 36.2–36.8; O2SAT 100; BMI 24.8
[2020-06-25 12:07] LABS: Hematocrit 37.7 % (37-47); Hemoglobin 12.6 g/dL (12.0-15.0); Mean Corp Hgb Conc 33.4 g/dL (32-36); Mean Corpuscular Hgb 29.4 pg (27.0-32.0); Mean Corpuscular Volume 87.9 fL (81-99); Mean Platelet Vol. 10.3 fl (6.2-12.0); Platelet Count 171 K/mm3 (150-450); RBC Distribution Width CV 12.6 % (11.6-14.6); RBC Distribution Width SD 39.7 fl (35.1-43.9); Red Blood Count 4.29 M/mm3 (4.2-5.4); White Blood Count 6.2 K/mm3 (4.4-11.0)
[2020-06-25 12:23] LABS: ALB/GLOB Ratio 1.1 RATIO (0.9-2.4); AST(SGOT) 11 U/L (15-37); Alanine Aminotransfer ALT/SGPT 21 U/L (13-56); Albumin, Serum 3.6 g/dL (3.2-5.0); Alkaline Phosphatase 49 U/L (45-117); Anion Gap 5 (5-15); BUN 9 mg/dL (7-18); BUN/Creat Ratio 15.3 RATIO (10-20); Calcium,Total 8.3 mg/dL (8.5-10.1); Chloride 111 mmol/L (98-107); Creatinine, Serum 0.59 mg/dL (0.55-1.02); EST Glomerular Filtration Rate 123 mL/min (>60); Est Glom Filt Rate - Afr Amer 149 mL/min (>60); Globulin 3.2 g/dL (2.2-4.2); Glucose 88 mg/dL (74-106); Potassium 3.8 mmol/L (3.5-5.1); Protein, Total 6.8 g/dL (6.4-8.2); Sodium Level 142 mmol/L (136-145); hCG Titer Quant., Serum 146 mIU/mL (1-3)
--- NOTE | 2020-06-25 13:30 | HP.PCM.OB_ITS ---
History and Physical Date of Admission: 06/25/20 Chief complaint: Ruptured ectopic History of present illness: 34-year-old with ectopic with severe abdominal pain and tenderness. Denies headache, chest pain, shortness of breath, nausea vomiting. Obstetric history: G1: Term G2: Term G3: SAB G4: Current Past medical history: Asthma, rheumatoid arthritis Medications: Breo Past surgical history: Right oophorectomy 2018, diagnostic laparoscopy drainage of hematoma 2019, D&C, wisdom teeth extraction, appendectomy Allergies: Doxy, Zosyn, tramadol, bank Family history: Denies history DVT or PE Social history: Denies smoking, alcohol use, drug use Review of systems: Besides the above pertinent positives a full review of systems performed found to be negative Physical exam: Vital signs: BP 130/72 General: Appears in mild distress HEENT: Normocephalic atraumatic no cervical of adenopathy Cardiac/respiratory: Nonlabored breathing, no use of accessory muscles Abdomen: Firm, tender to light palpation in bilateral lower quadrant, distended. Positive rebound tenderness and guarding in lower quadrants Extremities: No peripheral edema normal peripheral pulses Psych: Normal affect normal demeanor nonpressured speech. Labs: White blood cell count 6.2, hemoglobin 12.6 hematocrit 37.7% platelet co unt 171. Sodium 142, potassium 3.8, creatinine 0.59. B positive, antibody negative Assessment plan: 34-year-old with ruptured ectopic ultrasound confirmed an acute abdomen. For emergency diagnostic laparoscopy, removal of ectopic, possible left oophorectomy, possible left salpingectomy. Patient understands the risk of the procedure include but are not limited to visceral or vascular injury, prolonged hospitalization, blood loss and need for transfusion, reoperation. Patient also understands the risk of oophorectomy including surgical menopause and infertility. Patient states understanding and agrees for removal of ovary if medically necessary. CBC, type and screen ordered. Discussed the case with surgical team and anesthesia directly.
--- NOTE | 2020-06-25 13:30 | FAL_PTH ---
PATIENT: FANNY CELAYA LOC: [facility] U#:[id number] AGE/SX: 34/F ROOM: RE06/25/[address]: Dr. Phillip Holder MD : 1985 BED: DIS: 06/25/2020 SPEC #: [id number] RECD: 06/26/20 08:09 STATUS: TIFFANIE CHELA #: [id number] CHAVEZ: 06/25/20 13:[address]: Phillip Holder DEPT: SURGICAL PATHOLOGY RECD BY: Chiqui Nava ENTERED: 06/26/20 09:58 SP TYPE: ECTOPIC OTHR DR: Dr. Nash Dc MD Tissues: ECTOPIC PREG Procedures: Surgery Specimen Level IV HEADER OPERATION: Diagnostic laparoscopy, ruptured removal ovarian ectopic PRE-OP DIAGNOSIS: Ruptured ectopic TISSUE SUBMITTED: Left ectopic MICROSCOPIC DIAGNOSIS Left ectopic : Ovarian tissue with ruptured hemorrhagic corpus luteal cyst, focal decidual changes, physiologic follicular cysts and reactive changes. Numerous blood clots with a few immature chorionic villi (ectopic ). Scant fragments of fimbrial end, fallopian tube, no pathologic diagnosis. See comment. ANTONIO:kristine 06/28/2020 COMMENT Please make reference to previous specimens [id number], products of conception with diagnosis of ?fragments of secretory endometrium with focal decidual changes? and [id number], products of conception with diagnosis of ?secretory endometrium with glandular and stromal breakdown and focal decidual changes?. MICROSCOPIC DESCRIPTION Slides are reviewed. GROSS DESCRIPTION Received in fixative is one container labeled with the patient's name and designated left ectopic . The specimen consists of a portion of ruptured ovary filled with blood clot measuring 4.5 x 3.5 x 3 cm. Also present in the container are multiple fragments of blood clot measuring in aggregate 6 x 5.5 x 2 cm. No obvious tissue is identified. Sections of the ovarian tissue also reveal multiple cysts, the largest measuring 0.5 cm in greatest dimension. Basketball Scout sections are submitted in six cassettes as follows: 1-4 - ovary, 5 & 6 - detached blood clots. / ANTONIO:kristine 06/26/20 The rest of the specimen is submitted in 14 more cassettes, - as follows: - - rest of ovarian tissue, - - rest of blood clots. / ANTONIO:kristine 06/27/20 TC:5 CPT: 63912
[2020-06-25] MEDS: Lactated Ringers 1,000 ML 100 ML IV ×2 (14:00→15:30)
--- NOTE | 2020-06-25 16:07 | PCM.DC ---
Discharge Instructions Diet Discharge Diet: No restrictions Activity Discharge Activity: No Restrictions, May Drive and May Shower May resume sexual activity in: 4-6 weeks Lifting Restrictions: no lifting over 25lbs for 2-3 weeks Dressing / Incision Call your doctor if your incision/area has: Continuous Slow Oozing, Sudden Increased Bleeding and Foul Smelling Discharge Call your doctor if you observe: Fever of 101 or Higher, Shortness of breath and Chest pain Follow Up Care Please Follow Up With: Phillip Holder MD When: 2 weeks post operatively Test Results: Test results from this visit will be discussed in further detail at your follow-up appointment, if applicable. Discharge Plan Admission Attending Provider: Phillip Holder Primary Care Provider: Nash Dc Discharge Orders/Prescriptions Prescriptions: No Action calcium carbonate [Calcium 600] 600 mg calcium (1,500 mg) tablet 600 mg PO BID RF: 0 cholecalciferol (vitamin D3) 50 mcg (2,000 unit) capsule 1,000 unit PO DAILY RF: 0 cyanocobalamin (vitamin B-12) 1,000 mcg tablet 1,000 mcg PO DAILY RF: 0 albuterol sulfate 1 INHALER inhaler 90 mcg INHALATION Q6H PRN PRN (Reason: Wheezing) RF: 0 certolizumab pegol 400 MG/2 ML syringe kit 400 mg SQ .Q2WEEK RF: 0 vit,[id number] 1 TABLET tablet 1 tablet PO DAILY RF: 0
--- NOTE | 2020-06-25 16:08 | PCM.OPRPT ---
Report of Operation Date of Procedure: 06/25/20 Pre-Operative Diagnosis: Left ectopic Post-Operative Diagnosis: Left ovarian ectopic Surgery/Procedure Performed:: Diagnostic laparoscopy left ovarian ectopic removal, left salpingostomy removal of ovarian ectopic Description of Surgical Findings:: Surgeon: Phillip Holder MD Anesthesia: General EBL: 50 cc Urine output: None at 30 cc IV fluids: 1300 cc Complications: None Specimen: Left ovarian ectopic Findings: Moderate amount of blood in the posterior cul-de-sac. Left ovarian ectopic noted 6 cm in size. Left fallopian tube with discoloration and appearance of ectopic tissue noted. Left ovarian ectopic was dissected from the ovary. Left fallopian tube attempted to be evacuated by spinal needle with no success salpingostomy performed removed ectopic tissue noted. After removal of ectopic tissue from left fallopian tube, fallopian tube was noted to be pink. Consent: Patient arrived to the office with increasing abdominal pain bloating found to have acute abdomen with ultrasound findings of ruptured ectopic. In need of diagnostic laparoscopy and removal of left ectopic . Patient understood the risk of the procedure include but are not limited to visceral or vascular injury, prolonged hospitalization, blood loss and need for transfusion, reoperation. Also discussed with the patient the possibility of removal of the left ovary and/or fallopian tube may be needed. patient said understanding wished proceed. All questions were answered consent was signed. Procedure: Patient was brought back to the OR where general anesthesia found to be adequate. Patient was prepared and draped in a dorsolithotomy position with yellowfin stirrups. Varies needle was inserted the umbilicus water safety test was passed. Abdomen was insufflated. Supraumbilical midline 5 mm trocar was inserted under direct visualization. Laparoscope was inserted and above findings were noted. Bilateral 5 mm of lower quadrant trochars were inserted under direct visualization. Using an atraumatic grasper and a LigaSure device the left ovarian ectopic was removed. Good hemostasis was noted, majority of left ovary was noted to be healthy and intact. Left fallopian tube with above findings. Spinal needle was inserted through the abdomen under direct visualization and left open tube was attempted to be drained of tissue, with no success. Using spatula Bovie tip left salpingostomy was performed using atraumatic grasper and suction tissue was evacuated from left fallopian tube. And as noted above fallopian tube with pink color post procedure, and hemostatic. Abdomen was suction irrigated good hemostasis was noted. FloSeal was placed over operative sites. Umbilical 5 mm trocar was removed and a 10 mm trocar was inserted under direct visualization. Endo Catch bag was inserted and ectopic tissue was removed from the abdominal cavity. Using an Endo fascial closure device the fascia at 10 mm trocar site was closed under direct visualization. Abdominal pressure was decreased and good hemostasis was noted at all operative sites. Trochars were removed under direct visualization, abdomen was desufflated. Good hemostasis was noted. Trochars were closed in a subcutaneous fashion. All counts correct x2. Patient tolerated the procedure well was brought to recovery in stable condition. athletic training internship: Reji Khan
[2020-06-25] MEDS: oxyCODONE 5 MG Tablet PO (17:02)
== END 2020-06-25 21:32 ==
LOC: WOBLAB 12:52 → SDC 12:53 → AC 13:10
PROVIDERS: PCP Family Medicine; Referring Provider Obstetrics & Gynecology; Visit Provider Obstetrics & Gynecology
PROC: 10T24ZZ Resection of Products of Conception, Ectopic, Percutaneous Endoscopic Approach (ICD-10-PCS; CPT 59150; principal; 2020-06-25 13:15)
DX: O00.202 Left ovarian pregnancy without intrauterine pregnancy (principal); J45.909 Unspecified asthma, uncomplicated; O99.519 Diseases of the respiratory system complicating pregnancy, unspecified trimester; M06.9 Rheumatoid arthritis, unspecified
CPT/HCPCS: 00840; 59151; 36415; 80053; 84702; 85027; 86850; 86900; 86901; 87426; 88305; J7120; J2405

== ENCOUNTER → 2020-07-05 11:41 | Outpatient (CLI) | payer OTHER, SELFPAY ==
[2020-06-25 13:54] VITALS: BMI 24.8
[2020-07-05 13:54] LABS: hCG Titer Quant., Serum 1 mIU/mL (1-3)
== END ==
PROVIDERS: PCP Family Medicine; Visit Provider Obstetrics & Gynecology
DX: O02.1 Missed abortion (principal); Z3A.00 Weeks of gestation of pregnancy not specified
CPT/HCPCS: 36415; 84702

== ENCOUNTER → 2020-09-13 07:09 | Outpatient (CLI) | payer OTHER, SELFPAY ==
[2020-06-25 13:54] VITALS: BMI 24.8
[2020-09-13 10:48] LABS: hCG Titer Quant., Serum 69 mIU/mL (1-3)
== END ==
PROVIDERS: PCP Family Medicine; Referring Provider Obstetrics & Gynecology; Visit Provider Obstetrics & Gynecology
DX: N91.2 Amenorrhea, unspecified (principal)
CPT/HCPCS: 36415; 84702

== ENCOUNTER → 2020-09-15 10:19 | Outpatient (CLI) | payer OTHER, SELFPAY ==
[2020-06-25 13:54] VITALS: BMI 24.8
[2020-09-15 10:56] LABS: Hematocrit 39.9 % (37-47); Hemoglobin 13.3 g/dL (12.0-15.0); Mean Corp Hgb Conc 33.3 g/dL (32-36); Mean Corpuscular Hgb 28.8 pg (27.0-32.0); Mean Corpuscular Volume 86.4 fL (81-99); Platelet Count 196 K/mm3 (150-450); RBC Distribution Width CV 12.6 % (11.6-14.6); Red Blood Count 4.62 M/mm3 (4.2-5.4); White Blood Count 5.8 K/mm3 (4.4-11.0)
[2020-09-15 11:16] LABS: hCG Titer Quant., Serum 266 mIU/mL (1-3)
== END ==
PROVIDERS: PCP Family Medicine; Referring Provider Obstetrics & Gynecology; Visit Provider Obstetrics & Gynecology
DX: O20.0 Threatened abortion (principal); Z3A.00 Weeks of gestation of pregnancy not specified
CPT/HCPCS: 36415; 84702; 85027

== ENCOUNTER → 2020-09-17 09:35 | Outpatient (CLI) | payer OTHER, SELFPAY ==
[2020-06-25 13:54] VITALS: BMI 24.8
[2020-09-17 12:21] LABS: hCG Titer Quant., Serum 592 mIU/mL (1-3)
== END ==
PROVIDERS: PCP Family Medicine; Visit Provider Obstetrics & Gynecology
DX: Z34.91 Encounter for supervision of normal pregnancy, unspecified, first trimester (principal)
CPT/HCPCS: 36415; 84702

== ENCOUNTER → 2020-09-20 09:03 | Outpatient (CLI) | payer OTHER, SELFPAY ==
[2020-06-25 13:54] VITALS: BMI 24.8
[2020-09-20 10:42] LABS: hCG Titer Quant., Serum 1217 mIU/mL (1-3)
== END ==
PROVIDERS: PCP Family Medicine; Visit Provider Obstetrics & Gynecology
DX: N91.2 Amenorrhea, unspecified (principal)
CPT/HCPCS: 36415; 84702

== ENCOUNTER → 2020-09-27 13:04 | Outpatient (CLI) | payer OTHER, SELFPAY ==
[2020-06-25 13:54] VITALS: BMI 24.8
[2020-09-27 13:36] LABS: Absolute Lymphocyte Count 1.99 X10^3/uL (0.83-4.51); Basophil# 0.06 X10^3/uL; Basophil% 0.7 % (0-1); Eosinophil# 0.29 X10^3/uL; Eosinophils% 3.2 % (0-5); Hematocrit 40.7 % (37-47); Lymphocyte # 1.99 X10^3/ul (0.83-4.51); Lymphocyte % 22.2 % (19-41); Mean Corp Hgb Conc 34.4 g/dL (32-36); Mean Corpuscular Hgb 29.7 pg (27.0-32.0); Mean Corpuscular Volume 86.2 fL (81-99); Mean Platelet Vol. 10.2 fl (6.2-12.0); Monocyte% 6.7 % (0-10); NRBC Flagged by Analyzer 0 % (0-5); Neutrophil # 5.99 X10^3/uL (2.7-7.7); Neutrophil % 66.9 % (47-70); Platelet Count 186 K/mm3 (150-450); RBC Distribution Width SD 40.5 fl (35.1-43.9); Red Blood Count 4.72 M/mm3 (4.2-5.4)
[2020-09-27 14:47] LABS: HIV - WCH Non-Reactive (Nonreactive); Hepatitis B Surface Antigen Non-Reactive (Nonreactive); Hepatitis C Antibody Non-Reactive (Nonreactive); Rubella IgG Reactive (Nonreactive); Syphilis Antibodies Non-reactive
[2020-10-02 05:07] LABS: Chlamydia By Nucleic Acid AMP Negative (Negative)
[2020-10-03 10:47] LABS: Gonococcus By Nucleic Acid AMP Negative (Negative)
== END ==
PROVIDERS: PCP Family Medicine; Visit Provider Obstetrics & Gynecology
DX: Z11.3 Encounter for screening for infections with a predominantly sexual mode of transmission (principal); Z32.01 Encounter for pregnancy test, result positive
CPT/HCPCS: 36415; 85025; 86703; 86762; 86780; 86803; 87086; 87088; 87340; 87491; 87591

== ENCOUNTER → 2020-10-01 13:43 | Outpatient (CLI) | payer OTHER, SELFPAY ==
[2020-06-25 13:54] VITALS: BMI 24.8
== END ==
PROVIDERS: PCP Family Medicine; Visit Provider Obstetrics & Gynecology
DX: N39.0 Urinary tract infection, site not specified (principal)
CPT/HCPCS: 87086

== ENCOUNTER 2020-12-01 12:32 | Emergency (ER) | payer OTHER, SELFPAY ==
[2020-12-01 12:33] VITALS: BP 129/77; PULSE 89; RESP 18; TEMP 36.8; O2SAT 97; BMI 26.6
[2020-12-01 13:12] LABS: Mucous, Urine 0 SEEN /hpf (<or=2+); Red Blood Cells-Urine 0 SEEN /hpf (0-5); White Blood Cells 0 SEEN /hpf (0-5)
[2020-12-01 13:13] LABS: Color, Urine Yellow (Yellow); Glucose, Dipstick Normal (Normal); Leukocyte Esterase-Dipstick 25 /ul (Negative); Nitrite-Dipstick Negative (Negative); Occult Blood-Urine 10 /ul (Negative); Protein-Dipstick 30 mg/dl (Negative); Urine Bilirubin Dipstick Negative (Negative); Urine Clarity Clear (Clear); Urine Urobilinogen Normal (Normal)
[2020-12-01 13:14] LABS: Ketone-Dipstick 150 mg/dl (Negative)
[2020-12-01 13:19] LABS: Bacteria RARE /hpf (None Seen); Internal QC Validated? YES +Cl - CLEAR BKGD; Squamous Epithelial Cells - UA 0-5 SEEN /hpf (5-10)
[2020-12-01 13:20] LABS: Pregnancy, Urine Positive Negative
--- NOTE | 2020-12-01 14:13 | EKG12_ITS ---
Test Reason : Blood Pressure : / mmHG Vent. Rate : 080 BPM Atrial Rate : 080 BPM P-R Int : 142 ms QRS Dur : 086 ms QT Int : 378 ms P-R-T Axes : 058 071 036 degrees QTc Int : 435 ms Normal sinus rhythm Nonspecific ST abnormality Abnormal ECG Confirmed by MICHAEL ZUÑIGA, MARCOS ([id number]), automation controls expert BRENDAN VILLAREAL ([id number]) on 12/04/2020 8:47:00 AM Referred By: BERNARD Confirmed By:MARCOS RODRIGUEZ MD
--- NOTE | 2020-12-01 14:14 | RAD_ITS ---
STUDY: X-RAY CHEST REASON FOR EXAM: Female, 34 years old. pain -- shield abdomen, 15 weeks TECHNIQUE: Frontal portable view of the abdomen COMPARISON: 10 Jul 2017, 22 May 2020 FINDINGS: The lungs are clear and expanded. There is no demonstrated pleural abnormality. Normal size heart. Normal mediastinum and joe. Normal visualized pulmonary arteries. Normal visualized aortic arch and descending thoracic aorta. Normal visualized thoracic spine. Normal visualized ribs, clavicles, and shoulders. There is no demonstrated abnormality of the visualized soft tissue structures of the upper abdomen. RAD/Chest 1 View (Portable) IMPRESSION: Normal x-ray examination of the chest. Electronically Signed: Abdi Walden MD at 15:52 EDT Tel , Service support ,
[2020-12-01 14:29] LABS: Absolute Neutrophil Count 2.2 X10^3/uL (2.0-7.7); Basophil# 0.01 X10^3/uL; Basophil% 0.3 % (0-1); Eosinophil# 0.02 X10^3/uL; Eosinophils% 0.6 % (0-5); Hematocrit 36.2 % (37-47); Hemoglobin 12.7 g/dL (12.0-15.0); Lymphocyte % 21.9 % (19-41); Mean Corp Hgb Conc 35.1 g/dL (32-36); Mean Corpuscular Hgb 29.5 pg (27.0-32.0); Mean Corpuscular Volume 84.2 fL (81-99); Mean Platelet Vol. 9.8 fl (6.2-12.0); Monocyte% 9.4 % (0-10); NRBC Flagged by Analyzer 0 % (0-5); Neutrophil # 2.15 X10^3/uL (2.7-7.7); Neutrophil % 67.2 % (47-70); Platelet Count 115 K/mm3 (150-450); RBC Distribution Width CV 13.2 % (11.6-14.6); RBC Distribution Width SD 39.9 fl (35.1-43.9); White Blood Count 3.2 K/mm3 (4.4-11.0)
[2020-12-01] MEDS: 0.9% Normal Saline 1,000 ML 1000 ML IV (14:30)
[2020-12-01] MEDS: Ondansetron 4 MG/2 ML Vial IV (14:31)
[2020-12-01 14:45] LABS: ALB/GLOB Ratio 0.8 RATIO (0.9-2.4); AST(SGOT) 19 U/L (15-37); Alanine Aminotransfer ALT/SGPT 19 U/L (13-56); Alkaline Phosphatase 55 U/L (45-117); Anion Gap 8 (5-15); BUN 6 mg/dL (7-18); BUN/Creat Ratio 11.1 RATIO (10-20); Calcium,Total 8.5 mg/dL (8.5-10.1); Chloride 106 mmol/L (98-107); Creatinine, Serum 0.54 mg/dL (0.55-1.02); EST Glomerular Filtration Rate 135 mL/min (>60); Est Glom Filt Rate - Afr Amer 164 mL/min (>60); Estimated Creatinine Clearance 146.68 ml/min; Globulin 3.8 g/dL (2.2-4.2); Glucose 74 mg/dL (74-106); Potassium 3.4 mmol/L (3.5-5.1); Protein, Total 6.8 g/dL (6.4-8.2); Sodium Level 136 mmol/L (136-145)
--- NOTE | 2020-12-01 16:07 | ED.VIS.GI ---
HPI HPI - GI History of Present Illness Chief Complaint: Flank Pain Narrative Narrative: Patient presents with right-sided flank pain that she has had for the last few days. Its been worsening. She states she had a fever also. Past medical history includes rheumatoid arthritis, multiple abdominal surgeries, pain foramen ovale. She states that she is also 15 weeks . She denies any vaginal bleeding or vaginal discharge. She had a history of pleurisy earlier this year. 69 pain on the right side of her flank. It does not radiate to her groin. Is been constant and sometimes worse with movement. States she does not feel well. She took her temperature and it was elevated. She has been taking Tylenol without relief. She denies any dysuria or hematuria. She is nauseated but has not vomited. She does not have any problems with bowel movements. No diarrhea. She is complaining mainly of pain at the bottom of her right ribs on the side, and more towards the front. [facility] Medical History (Updated 12/01/20 @ 16:07 by Rohit Nava MD) Anemia Anxiety Arthritis Asthma Asthma Renteria's palsy Breast cyst Cephalalgia Depression Fever Heart murmur Hemoperitoneum History of vaginal delivery Hypocalcemia Hypoglycemia Immunosuppressed status Leukopenia Migraines Nausea & vomiting Osteopenia PFO (patent foramen ovale) Rheumatoid arthritis Urinary tract infection Home Medications calcium carbonate 600 mg calcium (1,500 mg) tablet 600 mg PO BID 12/08/18 [History Last Taken 02/05/19] albuterol sulfate 90 mcg INHALATION Q6H PRN PRN 02/06/19 [History Last Taken Unknown] cholecalciferol (vitamin D3) 50 mcg (2,000 unit) capsule 1,000 unit PO DAILY cap 12/29/19 [History Last Taken 06/04/20 07:30 1000 UNIT] cyanocobalamin (vitamin B-12) 1,000 mcg tablet 1,000 mcg PO DAILY 12/29/19 [History Last Taken 06/04/20 07:30 1000 MCG] certolizumab pegol 400 mg SQ .Q2WEEK 05/22/20 [History Last Taken 05/18/20] vit,[id number] 1 tablet PO DAILY 06/01/20 [History Last Taken 06/04/20 07:30 1 TABLET] fluticasone furoate [Arnuity Ellipta] 2 inh INHALATION DAILY 12/01/20 [History Last Taken Unknown] Allergy/AdvReac Type Severity Reaction Status Date / Time doxycycline Allergy Severe Unknown Verified 12/01/20 12:36 Penicillins Allergy Severe Unknown Verified 12/01/20 12:36 piperacillin sodium Allergy Severe Anaphylaxis Verified 12/01/20 12:36 [From Zosyn] tazobactam sodium Allergy Severe Anaphylaxis Verified 12/01/20 12:36 [From Zosyn] vancomycin Allergy Severe Unknown Verified 12/01/20 12:36 bee pollen [Bee Pollen] Allergy Mild Swelling Verified 12/01/20 12:36 tramadol AdvReac Severe Nausea/Vom/ Verified 12/01/20 12:36 Diarrhea Family History Grandmother Cancer ovarian Arthritis Mother Arthritis Depression Other CAD (coronary artery disease) Mixed hyperlipidemia Surgical History History of right oophorectomy Hx of appendectomy Social History (Updated 12/29/19 @ 15:[address] Ralph Spears MD) Smoking Status: Never smoker alcohol intake: current alcohol intake frequency: a few times a month Alcohol type: wine caffeine: Yes Type: coffee Number of servings: 1 and tea Number of servings: 1 what type of physical activity do you participate in: walking, running, bicycling, yoga and weight training frequency: 5-6 times per week ROS ROS ED ROS Narrative Constitutional: Positive fever, no chills. HEENT: No sore throat. No neck pain. No loss of vision. No rhinorrhea. Cardiovascular: No chest pain. No palpitations. No pedal edema. Right-sided rib pain. Respiratory: No cough, no shortness of breath. Abdominal: No abdominal pain. Positive nausea. No vomiting. Genitourinary: No dysuria. No hematuria. Musculoskeletal: No myalgias. No arthralgias. Neurologic: No headaches. No dizziness. No lightheadedness. Skin: No rash. No change in color. Psychiatric: No depression. No anxiety. EXAM Physical Exam Narrative Exam Narrative: Afebrile. Vital signs noted. HEENT: Normocephalic. Atraumatic. PERRL, EOMI. Neck soft and supple. No point tenderness or step off. Cardiovascular: Regular rate and rhythm. No murmurs, rubs, or gallops appreciated. Positive tenderness to palpation right chest wall, lower lateral to anterior ribs. No crepitance. Respiratory: No tachypnea. Lungs clear to auscultation bilaterally. Gastrointestinal: Abdomen soft, nontender, with normoactive bowel sounds. Negative Martin sign. No rebound or guarding. Neurological: Awake. Alert. Nonfocal, nonlateralizing. Skin: No rash. Normal color. No pallor. Musculoskeletal: No pedal edema. Full range of motion extremities. Const Vital Signs: 12/01/20 12:33 12/01/20 13:40 Temperature 98.2 F Temperature Source Temporal Pulse Rate 89 Respiratory Rate 18 Respiratory Effort Normal Non-Labored Respiratory Pattern Normal Blood Pressure 129/77 H Blood Pressure Mean 94 Pulse Ox 97 Oxygen Delivery Method Room Air MDM MDM MDM Narrative Medical decision making narrative: Comprehensive work-up was pursued. She has a slight neutropenia of 3.2 which she has had in the past, but she states this was when she was on a different rheumatoid arthritis medication. Her hemoglobin is normal at 12.7, hematocrit slightly lowered at 36.2, but she states that has been noted in the past. CMP shows potassium slightly low at 3.4. Wheezing is nonspecific. Urinalysis is positive for 150 ketones. It is negative for nitrites. WBC count is within normal limits for her urinalysis. Based on her examination, she does have tenderness on the ribs without crepitance. I do feel it may be more musculoskeletal in nature. We discussed the risk of radiation to the fetus with a chest x-ray with shielded abdomen. Her chest x-ray shows no acute process. I do not feel CT imaging of her abdomen is indicated given her , as her urine test per protocol is positive. At this point in time, I am unsure as to the cause of her right-sided flank pain. It may be more of an intercostal strain. 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 I feel she be discharged safely home with follow-up. Return instructions to the emergency department were reviewed. Her is currently at the bedside. They both agree with the plan. Disposition is discharged home in stable condition. Lab Data Attestation: I reviewed the patient's lab results. Labs: Laboratory Results - last 24 hr 12/01/20 12/01/20 12/01/20 13:02 14:25 14:25 WBC 3.2 L RBC 4.30 Hgb 12.7 Hct 36.2 L MCV 84.2 MCH 29.5 MCHC 35.1 RDW Std Deviation 39.9 RDW Coeff of Keiko 13.2 Plt Count 115 L MPV 9.8 Immature Gran % (Auto) 0.600 Neut % (Auto) 67.2 Lymph % (Auto) 21.9 [place] % (Auto) 9.4 Eos % (Auto) 0.6 Baso % (Auto) 0.3 Absolute Neuts (auto) 2.2 Absolute Lymphs (auto) 0.70 L Nucleated RBC % 0 Sodium 136 Potassium 3.4 L Chloride 106 Carbon Dioxide 22.0 Anion Gap 8 BUN 6 L Creatinine 0.54 L Estim Creat Clear Calc 146.68 Est GFR (MDRD) Af Amer 164 Est GFR (MDRD) Non-Af 135 BUN/Creatinine Ratio 11.1 Glucose 74 Calcium 8.5 Total Bilirubin 0.40 AST 19 ALT 19 Alkaline Phosphatase 55 Total Protein 6.8 Albumin 3.0 L Globulin 3.8 Albumin/Globulin Ratio 0.8 L Urine Color Yellow Urine Clarity Clear Urine pH 5.0 Ur Specific [place] 1.020 Urine Protein 30 H Urine Glucose (UA) Normal Urine Ketones 150 A* Urine Occult Blood 10 H Urine Nitrite Negative Urine Bilirubin Negative Urine Urobilinogen Normal Ur Leukocyte Esterase 25 H Urine RBC 0 SEEN Urine WBC 0 SEEN Ur Squamous Epith Cells 0-5 SEEN Urine Bacteria RARE Urine Mucus 0 SEEN Urine Test Positive H Radiography Diagnostic Testing: Clinical Impression(s) from Imaging Studies Chest X-Ray 12/01/20 14:14 IMPRESSION: Normal x-ray examination of the chest. Electronically Signed: Abdi Walden MD at 15:52 EDT Tel , Service support , Discharge Plan Triage Chief Complaint: Flank Pain ED Provider: Rohit Nava Dx/Rx/DC Orders Clinical Impression: , Right flank pain, Rib pain on right side, Antepartum dehydration Instructions: ED Chest Pain, Noncardiac, ED Flank Pain, Uncertain Cause, ED Pain, Acute, Uncertain Cause, ED Established ... Prescriptions: No Action calcium carbonate [Calcium 600] 600 mg calcium (1,500 mg) tablet 600 mg PO BID RF: 0 cholecalciferol (vitamin D3) 50 mcg (2,000 unit) capsule 1,000 unit PO DAILY RF: 0 cyanocobalamin (vitamin B-12) 1,000 mcg tablet 1,000 mcg PO DAILY RF: 0 albuterol sulfate 1 INHALER inhaler 90 mcg INHALATION Q6H PRN PRN (Reason: Wheezing) RF: 0 certolizumab pegol 400 MG/2 ML syringe kit 400 mg SQ .Q2WEEK RF: 0 vit,[id number] 1 TABLET tablet 1 tablet PO DAILY RF: 0 Arnuity Ellipta 200 mcg/actuation blister with device 2 inh INHALATION DAILY RF: 0 Primary Care Provider: Nash Dc Referrals: Nash Dc MD [Primary Care Provider] - 12/03/20 Disposition Disposition: Home, Self Care
[2020-12-01 16:29] VITALS: BP 122/74; RESP 18
[2020-12-01 16:34] VITALS: PULSE 87; RESP 16; TEMP 37.2; O2SAT 97
== END 2020-12-01 16:36 | disposition home or self-care (01) ==
PROVIDERS: Emergency Provider Emergency Medicine; PCP Family Medicine
DX: O99.891 Other specified diseases and conditions complicating pregnancy (principal); O99.282 Endocrine, nutritional and metabolic diseases complicating pregnancy, second trimester; R10.9 Unspecified abdominal pain; E86.0 Dehydration; Q21.1 Atrial septal defect; Z3A.15 15 weeks gestation of pregnancy; M06.9 Rheumatoid arthritis, unspecified; O99.012 Anemia complicating pregnancy, second trimester; O99.342 Other mental disorders complicating pregnancy, second trimester; J45.909 Unspecified asthma, uncomplicated; G51.0 Bell's palsy; F41.9 Anxiety disorder, unspecified; D64.9 Anemia, unspecified; F32.A Depression, unspecified; O99.512 Diseases of the respiratory system complicating pregnancy, second trimester
CPT/HCPCS: 71045; 80053; 81001; 81025; 85025; 93005; 99283; J7030; J2405

== ENCOUNTER → 2020-12-04 | Outpatient (CLI) | payer OTHER, SELFPAY | END | disposition home or self-care (01) | PROVIDERS: PCP Family Medicine; Referring Provider Physician Assistant Surgical; Visit Provider Physician Assistant Surgical | DX: U07.1 COVID-19 (principal) | CPT/HCPCS: 87635; U0005; U0003 ==

== ENCOUNTER 2020-12-06 16:14 | Emergency (ER) | payer OTHER, SELFPAY ==
[2020-12-06 16:15] VITALS: BP 121/73; PULSE 83; RESP 16; TEMP 35.9; O2SAT 96; BMI 25.7
--- NOTE | 2020-12-06 17:47 | EX.ED.DYSGE1 ---
HPI History of Present Illness Chief Complaint: General Illness Informant: patient Narrative Narrative: Patient referred here for PE rule out. G5, P3 16 weeks gestation reported hemoptysis for 2 days. Patient Covid +2 days ago also from urgent care. Symptoms started 8 days ago with fatigue and not feeling well, couple days later, felt feverish. She was seen in the ED here states she was dehydrated states her initial Covid was negative. Since then intermittent fever she developed mastitis seen in urgent care 2 days ago placed on Keflex with Covid testing being positive. Patient follows Dr. Phillip Holder for OB. Denies urinary symptoms. Denies vomiting or diarrhea. Denies loss of taste or smell. She is unvaccinated denies sick contacts. First Covid infection. States other family members had had infections previously. Addition history of rheumatoid arthritis on immunosuppressants however skipped her last treatment that she gets every 2 weeks. Reports nausea unable to keep things down. Denies any dyspnea. [facility] Medical History (Updated 12/06/20 @ 20:[address] Rogelio Mahan DO) Anemia Anxiety Arthritis Asthma Asthma Renteria's palsy Breast cyst Cephalalgia Depression Fever Heart murmur Hemoperitoneum History of vaginal delivery Hypocalcemia Hypoglycemia Immunosuppressed status Leukopenia Migraines Nausea & vomiting Osteopenia PFO (patent foramen ovale) Rheumatoid arthritis Urinary tract infection Home Medications calcium carbonate 600 mg calcium (1,500 mg) tablet 600 mg PO BID 12/08/18 [History Last Taken 02/05/19] albuterol sulfate 90 mcg INHALATION Q6H PRN PRN 02/06/19 [History Last Taken Unknown] cholecalciferol (vitamin D3) 50 mcg (2,000 unit) capsule 1,000 unit PO DAILY cap 12/29/19 [History Last Taken 06/04/20 07:30 1000 UNIT] cyanocobalamin (vitamin B-12) 1,000 mcg tablet 1,000 mcg PO DAILY 12/29/19 [History Last Taken 06/04/20 07:30 1000 MCG] certolizumab pegol 400 mg SQ .Q2WEEK 05/22/20 [History Last Taken 05/18/20] vit,[id number] 1 tablet PO DAILY 06/01/20 [History Last Taken 06/04/20 07:30 1 TABLET] fluticasone furoate [Arnuity Ellipta] 2 inh INHALATION DAILY 12/01/20 [History Last Taken Unknown] cephalexin 500 mg capsule 500 mg PO Q12H 10 Days #20 cap 12/04/20 [Rx Last Taken Unknown] ondansetron HCl 4 mg tablet 4 mg PO Q8H PRN #14 tab 12/04/20 [Rx Last Taken Unknown] Allergy/AdvReac Type Severity Reaction Status Date / Time doxycycline Allergy Severe Unknown Verified 12/06/20 16:18 Penicillins Allergy Severe Unknown Verified 12/06/20 16:18 piperacillin sodium Allergy Severe Anaphylaxis Verified 12/06/20 16:18 [From Zosyn] tazobactam sodium Allergy Severe Anaphylaxis Verified 12/06/20 16:18 [From Zosyn] vancomycin Allergy Severe Unknown Verified 12/06/20 16:18 bee pollen [Bee Pollen] Allergy Mild Swelling Verified 12/06/20 16:18 tramadol AdvReac Severe Nausea/Vom/ Verified 12/06/20 16:18 Diarrhea Family History Grandmother Cancer ovarian Arthritis Mother Arthritis Depression Other CAD (coronary artery disease) Mixed hyperlipidemia Surgical History History of right oophorectomy Hx of appendectomy Social History Smoking Status: Never smoker alcohol intake: current alcohol intake frequency: a few times a month Alcohol type: wine caffeine: Yes Type: coffee Number of servings: 1 and tea Number of servings: 1 what type of physical activity do you participate in: walking, running, bicycling, yoga and weight training frequency: 5-6 times per week ROS ROS ED Constitutional Constitutional ED: Denies chills, fever(s) or sweats Eyes Eyes: Denies change in vision ENT ENT ED: Denies dysphagia or sore throat Cardiovascular Cardiovascular: Denies chest pain, leg edema, palpitations or racing heartbeat Respiratory/Chest Respiratory/Chest: Reports cough; Denies dyspnea or dyspnea on exertion Gastrointestinal Gastrointestinal: Reports nausea; Denies abdominal pain, diarrhea or vomiting Genitourinary Genitourinary ED: Denies dysuria, hematuria or urinary frequency Musculoskeletal Musculoskeletal: Denies back pain, extremity pain or neck pain Integumentary Denies rash or wounds Neurologic Neurologic: Denies headache(s), paresthesias or weakness EXAM Physical Exam Const Vital Signs: 12/06/20 16:15 12/06/20 19:03 12/06/20 21:15 Temperature 96.6 F L Temperature Source Temporal Pulse Rate 83 87 73 Respiratory Rate 16 21 H 16 Blood Pressure 121/73 H 114/59 L 119/78 Blood Pressure Mean 89 77 Pulse Ox 96 99 97 Oxygen Delivery Method Room Air Room Air Positive well nourished and well developed General Appearance ED: well developed and NAD HEENT Reports dry mucous membranes normocephalic and atraumatic Mouth ED: Yes dry mucous membranes Mouth: dry mucous membranes Eyes PERRL, EOMs intact bilaterally and conjunctivae normal General Eye ED: Yes normal appearance of both eyes Neck no lymphadenopathy and supple General: Negative for tenderness Chest Wall Chest: Negative for tenderness Resp normal respiratory effort and normal air movement Effort and Inspection: symmetric chest movement; Negative for respiratory distress Cardio regular rate, regular rhythm and no murmurs Peripheral Pulses: pulses 2+ throughout GI normal to inspection, nondistended, normoactive bowel sounds and non-tender Palpation: Negative for guarding or rebound tenderness present Back/Spine no CVA tenderness and no thoracic nor lumbar tenderness Extremity normal to inspection General Extremety ED: Negative for edema or tenderness General Extremity: Negative for edema Neuro oriented x3 and no sensory deficits noted Sensorium / Orientation: awake and alert Skin no rashes or lesions noted and no wounds MDM MDM MDM Narrative Medical decision making narrative: Patient heart tones 150. Dry mucosal membranes. She is given IV fluids. Vitals are stable with 96% on room air on arrival. Labs white count 3.6 hemoglobin 13.6. Creatinine 0.54. Slight transaminitis AST and ALT 89 and 72 respectively. CRP at 31. She is sent here for concern for PE rule out, initial D-dimer obtained was 1.1. Risks and benefits with her at 16 weeks. She understands. CTA obtained negative for PE noted left lower lobe infiltrate with her Covid history likely Covid pneumonia. Urine negative for infection noted ketones. Tolerating oral intake. Oxygen is stable. She is along with immunosuppressant history. She would like evaluation for antibiotics. She is on day 8. Positive test in the system from 2 days ago. Order was placed for consult. She has a pulse oximeter at home. Signs and symptom discussed to return. She will finish her Keflex antibiotics for treatment for her mastitis. She is currently on full dose aspirin per OB due to high risk , she will continue this. All questions were answered. Lab Data Attestation: I reviewed the patient's lab results. Labs: Laboratory Results - last 24 hr 12/06/20 12/06/20 12/06/20 16:25 16:25 17:47 WBC 3.6 L RBC 4.65 Hgb 13.6 Hct 38.3 MCV 82.4 MCH 29.2 MCHC 35.5 RDW Std Deviation 39.3 RDW Coeff of Keiko 13.2 Plt Count 92 L MPV 10.6 Immature Gran % (Auto) 1.400 H Neut % (Auto) 68.1 Lymph % (Auto) 23.8 [place] % (Auto) 5.5 Eos % (Auto) 0.6 Baso % (Auto) 0.6 Absolute Neuts (auto) 2.5 Absolute Lymphs (auto) 0.86 Nucleated RBC % 0 Differential Comment SCANNED D-Dimer Quant (PE/DVT) 1.12 H* Sodium 134 L Potassium 3.4 L Chloride 102 Carbon Dioxide 22.0 Anion Gap 10 BUN 4 L Creatinine 0.54 L Estim Creat Clear Calc 146.68 Est GFR (MDRD) Af Amer 165 Est GFR (MDRD) Non-Af 136 BUN/Creatinine Ratio 7.4 L Glucose 87 Lactic Acid Calcium 8.7 Total Bilirubin 0.50 AST 89 H ALT 72 H Alkaline Phosphatase 70 C-React Prot Ext Range 31.10 H Total Protein 6.9 Albumin 2.8 L Globulin 4.1 Albumin/Globulin Ratio 0.7 L Urine Color Urine Clarity Urine pH Ur Specific Hundred Urine Protein Urine Glucose (UA) Urine Ketones Urine Occult Blood Urine Nitrite Urine Bilirubin Urine Urobilinogen Ur Leukocyte Esterase Urine RBC Urine WBC Ur Squamous Epith Cells Urine Bacteria Urine Mucus 12/06/20 12/06/20 17:47 18:05 WBC RBC Hgb Hct MCV MCH MCHC RDW Std Deviation RDW Coeff of Keiko Plt Count MPV Immature Gran % (Auto) Neut % (Auto) Lymph % (Auto) [place] % (Auto) Eos % (Auto) Baso % (Auto) Absolute Neuts (auto) Absolute Lymphs (auto) Nucleated RBC % Differential Comment D-Dimer Quant (PE/DVT) Sodium Potassium Chloride Carbon Dioxide Anion Gap BUN Creatinine Estim Creat Clear Calc Est GFR (MDRD) Af Amer Est GFR (MDRD) Non-Af BUN/Creatinine Ratio Glucose Lactic Acid 0.8 Calcium Total Bilirubin AST ALT Alkaline Phosphatase C-React Prot Ext Range Total Protein Albumin Globulin Albumin/Globulin Ratio Urine Color Yellow Urine Clarity Sl. Cloudy Urine pH 6.5 Ur Specific [place] 1.010 Urine Protein Negative Urine Glucose (UA) Normal Urine Ketones 150 A* Urine Occult Blood Negative Urine Nitrite Negative Urine Bilirubin Negative Urine Urobilinogen Normal Ur Leukocyte Esterase Negative Urine RBC 0 SEEN Urine WBC 0 SEEN Ur Squamous Epith Cells 0-5 SEEN Urine Bacteria RARE Urine Mucus 0 SEEN Radiography Diagnostic Testing: Clinical Impression(s) from Imaging Studies Chest CTA 12/06/20 18:42 IMPRESSION: No acute pulmonary emboli to the segmental level. Left lower lobe consolidation consistent with Covid pneumonia. Electronically Signed: Luciano Conti MD at 19:49 EDT Tel , Service support , Discharge Plan Triage Chief Complaint: General Illness ED Provider: Rogelio Mahan Dx/Rx/DC Orders Clinical Impression: Pneumonia due to 2019 novel coronavirus, Second trimester , Immunosuppressed status Instructions: Coronavirus Disease 2019 (COVID-19): Caring for Yourself or Others, ED - COVID Monoclonal AB Infusion ..., Coronavirus Disease 2019 COVID-19 and Childbirth Prescriptions: No Action calcium carbonate [Calcium 600] 600 mg calcium (1,500 mg) tablet 600 mg PO BID RF: 0 cholecalciferol (vitamin D3) 50 mcg (2,000 unit) capsule 1,000 unit PO DAILY RF: 0 cyanocobalamin (vitamin B-12) 1,000 mcg tablet 1,000 mcg PO DAILY RF: 0 cephalexin 500 mg capsule 500 mg PO Q12H 10 Days Qty: 20 RF: 0 ondansetron HCl [Zofran] 4 mg tablet 4 mg PO Q8H PRN (Reason: nausea and vomiting) Qty: 14 RF: 0 albuterol sulfate 1 INHALER inhaler 90 mcg INHALATION Q6H PRN PRN (Reason: Wheezing) RF: 0 certolizumab pegol 400 MG/2 ML syringe kit 400 mg SQ .Q2WEEK RF: 0 vit,[id number]-pvth-urhqi 1 TABLET tablet 1 tablet PO DAILY RF: 0 Arnuity Ellipta 200 mcg/actuation blister with device 2 inh INHALATION DAILY RF: 0 Other Ambulatory Orders: COVID Outpatient Monoclonal Antibody Referral (Routine) Timeframe: 1 Day Facility: [facility] - Location: [facility] Ordered By: Dr. Rogelio Mahan Primary Care Provider: Nash Dc Referrals: Phillip Holder MD [STAFF PHYSICIAN] - 3-5 Days Nash Dc MD [Primary Care Provider] - 3-5 Days Activity Restrictions/Additional Instructions: No PE on CT. He will be contacted for evaluation for antibody treatment. Disposition Disposition: Home, Self Care Discharge Date/Time: 12/06/20 21:16
[2020-12-06 18:00] LABS: Absolute Lymphocyte Count 0.86 X10^3/uL (0.83-4.51); Absolute Neutrophil Count 2.5 X10^3/uL (2.0-7.7); Basophil# 0.02 X10^3/uL; Basophil% 0.6 % (0-1); Eosinophil# 0.02 X10^3/uL; Eosinophils% 0.6 % (0-5); Hematocrit 38.3 % (37-47); Hemoglobin 13.6 g/dL (12.0-15.0); Lymphocyte # 0.86 X10^3/ul (0.83-4.51); Lymphocyte % 23.8 % (19-41); Mean Corp Hgb Conc 35.5 g/dL (32-36); Mean Corpuscular Hgb 29.2 pg (27.0-32.0); Mean Corpuscular Volume 82.4 fL (81-99); Mean Platelet Vol. 10.6 fl (6.2-12.0); Monocyte% 5.5 % (0-10); NRBC Flagged by Analyzer 0 % (0-5); Neutrophil # 2.46 X10^3/uL (2.7-7.7); Neutrophil % 68.1 % (47-70); POSITIVE COUNT YES; POSITIVE MORPHOLOGY YES; Platelet Count 92 K/mm3 (150-450); RBC Distribution Width CV 13.2 % (11.6-14.6); RBC Distribution Width SD 39.3 fl (35.1-43.9); Red Blood Count 4.65 M/mm3 (4.2-5.4); White Blood Count 3.6 K/mm3 (4.4-11.0)
[2020-12-06] MEDS: Metoclopramide 10 MG/2 ML Vial 5 MG IV (18:08)
[2020-12-06 18:11] LABS: ALB/GLOB Ratio 0.7 RATIO (0.9-2.4); AST(SGOT) 89 U/L (15-37); Alanine Aminotransfer ALT/SGPT 72 U/L (13-56); Albumin, Serum 2.8 g/dL (3.2-5.0); Alkaline Phosphatase 70 U/L (45-117); Anion Gap 10 (5-15); BUN 4 mg/dL (7-18); BUN/Creat Ratio 7.4 RATIO (10-20); Calcium,Total 8.7 mg/dL (8.5-10.1); Chloride 102 mmol/L (98-107); Creatinine, Serum 0.54 mg/dL (0.55-1.02); EST Glomerular Filtration Rate 136 mL/min (>60); Est Glom Filt Rate - Afr Amer 165 mL/min (>60); Estimated Creatinine Clearance 146.68 ml/min; Globulin 4.1 g/dL (2.2-4.2); Glucose 87 mg/dL (74-106); Potassium 3.4 mmol/L (3.5-5.1); Protein, Total 6.9 g/dL (6.4-8.2); Sodium Level 134 mmol/L (136-145)
[2020-12-06 18:13] LABS: Mucous, Urine 0 SEEN /hpf (<or=2+); Red Blood Cells-Urine 0 SEEN /hpf (0-5); White Blood Cells 0 SEEN /hpf (0-5)
[2020-12-06 18:15] LABS: Color, Urine Yellow (Yellow); Glucose, Dipstick Normal (Normal); Leukocyte Esterase-Dipstick Negative /ul (Negative); Nitrite-Dipstick Negative (Negative); Occult Blood-Urine Negative /ul (Negative); Protein-Dipstick Negative (Negative); Urine Bilirubin Dipstick Negative (Negative); Urine Clarity Sl. Cloudy (Clear); Urine Urobilinogen Normal (Normal); Urine pH 6.5 (5.0 - 8.0)
[2020-12-06 18:21] LABS: D-Dimer Quantitative (DVT/PE) 1.12 FEU/ug/m (0.27-0.49)
[2020-12-06 18:21] LABS: Squamous Epithelial Cells - UA 0-5 SEEN /hpf (5-10)
[2020-12-06 18:22] LABS: Bacteria RARE /hpf (None Seen)
[2020-12-06 18:24] LABS: Lactic Acid 0.8 mmol/L (0.4-1.9)
[2020-12-06 18:27] LABS: Differential Indicated SCAN CRITERIA MET
[2020-12-06 18:28] LABS: Differential Comment SCANNED
--- NOTE | 2020-12-06 18:42 | CT_ITS ---
INDICATION: dyspnea, hemoptysis, covid +, elevated dimer, preg EXAMINATION: CTA Chest WO/W Contrast Injection TECHNIQUE: Helically acquired images were obtained of the chest following administration of IV contrast. A radiation dose optimization technique was used for this scan. 3D postprocessing images including MIPS were reviewed. IV Contrast dosage and agent: IV 75mL [id number] COMPARISON: 05/22/2020. FINDINGS: Lungs: Left lower lobe consolidation. Mediastinum: The cardiomediastinal silhouette is not enlarged. No mediastinal, hilar or axillary adenopathy. The thoracic aorta is unremarkable. No obvious filling defect seen within the visualized pulmonary arteries. Pleura: Unremarkable Bones/Soft tissues: No suspicious osseous or soft tissue lesions Upper abdomen: No visualized abnormalities in the upper abdomen. CT/CTA Chest W/WO Contrast IMPRESSION: No acute pulmonary emboli to the segmental level. Left lower lobe consolidation consistent with Covid pneumonia. Electronically Signed: Luciano Conti MD at 19:49 EDT Tel , Service support ,
[2020-12-06 19:03] VITALS: BP 114/59; PULSE 87; RESP 21; O2SAT 99
[2020-12-06 21:15] VITALS: BP 119/78; PULSE 73; RESP 16; O2SAT 97
[2020-12-06 23:34] LABS: Ketone-Dipstick 150 mg/dl (Negative)
== END 2020-12-06 21:16 | disposition home or self-care (01) ==
PROVIDERS: Emergency Provider Emergency Medicine; PCP Family Medicine
DX: O98.512 Other viral diseases complicating pregnancy, second trimester (principal); U07.1 COVID-19; J12.82 Pneumonia due to coronavirus disease 2019; D84.9 Immunodeficiency, unspecified; Z3A.16 16 weeks gestation of pregnancy
CPT/HCPCS: 71275; 80053; 81001; 83605; 85025; 85379; 86140; 96374; 99283; J7040; Q9967; A4216

== ENCOUNTER 2020-12-07 13:23 | Outpatient (CLI) | payer OTHER, SELFPAY ==
[2020-12-07 13:40] VITALS: BP 100/56; PULSE 80; RESP 16; TEMP 36.6; O2SAT 99; BMI 25.7
[2020-12-07] MEDS: 0.9% Saline Lock 10 ML Syringe IV (13:51)
[2020-12-07 14:52] VITALS: BP 98/66; PULSE 77; RESP 16; TEMP 37.1; O2SAT 99
[2020-12-07 15:50] VITALS: BP 106/53; PULSE 82; RESP 16; TEMP 37.3; O2SAT 99
== END 2020-12-07 15:57 | disposition home or self-care (01) ==
LOC: MS3OUT 13:24 → MS3 13:24
PROVIDERS: PCP Family Medicine; Visit Provider Nurse Practitioner Adult Health
DX: Z23 Encounter for immunization (principal); U07.1 COVID-19
CPT/HCPCS: J7050; M0245; Q0245; A4216

== ENCOUNTER → 2020-12-11 | Outpatient (CLI) | payer OTHER, SELFPAY ==
[2020-12-11 15:37] LABS: Red Blood Cells-Urine 0 SEEN /hpf (0-5)
[2020-12-11 16:02] LABS: Color, Urine Amber (Yellow); Glucose, Dipstick Normal (Normal); Ketone-Dipstick 15 mg/dl (Negative); Leukocyte Esterase-Dipstick 25 /ul (Negative); Nitrite-Dipstick Negative (Negative); Occult Blood-Urine Negative /ul (Negative); Protein-Dipstick 15 mg/dl (Negative); Urine Clarity Clear (Clear); Urine Urobilinogen 12 mg/dl (Normal)
[2020-12-11 16:08] LABS: Urine Bilirubin Dipstick 1 mg/dL (Negative)
[2020-12-11 16:19] LABS: Bacteria 1+ /hpf (None Seen); Mucous, Urine 1+ /hpf (<or=2+); Squamous Epithelial Cells - UA 0-5 SEEN /hpf (5-10); White Blood Cells 0-5 SEEN /hpf (0-5)
== END | disposition home or self-care (01) ==
LOC: LABSPEC 15:15
PROVIDERS: PCP Family Medicine; Referring Provider Physician Assistant Surgical; Visit Provider Physician Assistant Surgical
DX: N39.0 Urinary tract infection, site not specified (principal)
CPT/HCPCS: 81001; 87086; 87088

== ENCOUNTER → 2020-12-17 09:26 | Outpatient (CLI) | payer OTHER, SELFPAY ==
[2020-12-17 09:59] LABS: Hematocrit 33.7 % (37-47); Hemoglobin 11.5 g/dL (12.0-15.0); Mean Corp Hgb Conc 34.1 g/dL (32-36); Mean Corpuscular Hgb 29.6 pg (27.0-32.0); Mean Corpuscular Volume 86.6 fL (81-99); Mean Platelet Vol. 9.4 fl (6.2-12.0); Platelet Count 355 K/mm3 (150-450); RBC Distribution Width CV 13.1 % (11.6-14.6); RBC Distribution Width SD 40.2 fl (35.1-43.9); Red Blood Count 3.89 M/mm3 (4.2-5.4); White Blood Count 6.7 K/mm3 (4.4-11.0)
[2020-12-17 10:10] LABS: ALB/GLOB Ratio 0.5 RATIO (0.9-2.4); AST(SGOT) 84 U/L (15-37); Alanine Aminotransfer ALT/SGPT 124 U/L (13-56); Albumin, Serum 2.5 g/dL (3.2-5.0); Alkaline Phosphatase 84 U/L (45-117); Anion Gap 5 (5-15); BUN 4 mg/dL (7-18); BUN/Creat Ratio 8.5 RATIO (10-20); Calcium,Total 8.9 mg/dL (8.5-10.1); Chloride 106 mmol/L (98-107); Creatinine, Serum 0.47 mg/dL (0.55-1.02); EST Glomerular Filtration Rate 159 mL/min (>60); Est Glom Filt Rate - Afr Amer 193 mL/min (>60); Globulin 4.6 g/dL (2.2-4.2); Glucose 77 mg/dL (74-106); Potassium 3.5 mmol/L (3.5-5.1); Protein, Total 7.1 g/dL (6.4-8.2); Sodium Level 137 mmol/L (136-145)
== END ==
PROVIDERS: PCP Family Medicine; Visit Provider Obstetrics & Gynecology
DX: R79.89 Other specified abnormal findings of blood chemistry (principal)
CPT/HCPCS: 36415; 80053; 85027

== ENCOUNTER → 2020-12-21 13:16 | Outpatient (CLI) | payer OTHER, SELFPAY ==
--- NOTE | 2020-12-21 13:19 | US_ITS ---
STUDY: ULTRASOUND BREAST - RIGHT REASON FOR EXAM: Female, 35 years old. Bilateral breast pain. The patient is 18 weeks . TECHNIQUE: Axial and longitudinal images of the RIGHT breast were performed with a high resolution ultrasound transducer. # OF IMAGES: 82 COMPARISON: Comparison is made with prior sonogram of the right breast dated 11/05/2017. FINDINGS: RIGHT Breast: The medial half of the right breast was examined by ultrasound. There is evidence of dense fibroglandular tissue. Diffusely dilated ducts with several small cysts. The largest cyst is seen at the 4 o''clock position the breast is 6 cm from nipple and measures 1.1 cm x 0.9 cm x 0.4 cm. IMPRESSION: Dilated ducts with the several small cysts. Dense fibroglandular tissue. ASSESSMENT CATEGORY: BIRADS Category 2: Benign. A letter regarding these results will be sent to the patient by the facility within 30 days. Electronically Signed: Ladarius Mensah MD at 14:42 EDT , Service support , STUDY: ULTRASOUND BREAST - LEFT REASON FOR EXAM: Female, 35 years old. Bilateral breast pain. The patient is 18 weeks . TECHNIQUE: Axial and longitudinal images of the LEFT breast were performed with a high resolution ultrasound transducer. # OF IMAGES: 82 COMPARISON: None. FINDINGS: LEFT Breast: The medial half of the left breast was examined by ultrasound. Multiple dilated ducts. There is a 1 cm x 0.9 cm x 0.6 cm cyst at the 10 o''clock position breast at 2 cm from nipple. US/Breast Limited Unilateral IMPRESSION: Multiple dilated ducts. Small breast cysts. ASSESSMENT CATEGORY: BIRADS Category 2: Benign. A letter regarding these results will be sent to the patient by the facility within 30 days. Electronically Signed: Ladarius Mensah MD at 14:43 EDT , Service support ,
== END ==
PROVIDERS: PCP Family Medicine; Referring Provider Obstetrics & Gynecology; Visit Provider Obstetrics & Gynecology
DX: N64.4 Mastodynia (principal)
CPT/HCPCS: 76642

== ENCOUNTER → 2021-01-07 10:23 | Outpatient (CLI) | payer OTHER, SELFPAY ==
[2021-01-07 11:42] LABS: Hematocrit 33.6 % (37-47); Hemoglobin 11.5 g/dL (12.0-15.0); Mean Corp Hgb Conc 34.2 g/dL (32-36); Mean Corpuscular Hgb 29.9 pg (27.0-32.0); Mean Corpuscular Volume 87.3 fL (81-99); Mean Platelet Vol. 9.9 fl (6.2-12.0); Platelet Count 223 K/mm3 (150-450); RBC Distribution Width CV 14.8 % (11.6-14.6); RBC Distribution Width SD 46.5 fl (35.1-43.9); Red Blood Count 3.85 M/mm3 (4.2-5.4)
[2021-01-07 11:56] LABS: ALB/GLOB Ratio 0.6 RATIO (0.9-2.4); AST(SGOT) 13 U/L (15-37); Alanine Aminotransfer ALT/SGPT 16 U/L (13-56); Albumin, Serum 2.9 g/dL (3.2-5.0); Alkaline Phosphatase 67 U/L (45-117); Anion Gap 5 (5-15); BUN 6 mg/dL (7-18); BUN/Creat Ratio 11.6 RATIO (10-20); Chloride 107 mmol/L (98-107); Creatinine, Serum 0.52 mg/dL (0.55-1.02); EST Glomerular Filtration Rate 143 mL/min (>60); Est Glom Filt Rate - Afr Amer 173 mL/min (>60); Globulin 4.5 g/dL (2.2-4.2); Glucose 77 mg/dL (74-106); Protein, Total 7.4 g/dL (6.4-8.2); Sodium Level 137 mmol/L (136-145)
== END ==
PROVIDERS: PCP Family Medicine; Visit Provider Obstetrics & Gynecology
DX: Z34.82 Encounter for supervision of other normal pregnancy, second trimester (principal); D69.6 Thrombocytopenia, unspecified
CPT/HCPCS: 36415; 80053; 85027

== ENCOUNTER 2021-02-04 17:00 | Outpatient (CLI) | payer OTHER, SELFPAY ==
[2021-02-04] VITALS (8 sets, daily range): BP systolic 108–125; BP diastolic 56–66; PULSE 64–68; TEMP 36.9; O2SAT 99; BMI 27.8
[2021-02-04 17:51] LABS: Mucous, Urine 0 SEEN /hpf (<or=2+); Red Blood Cells-Urine 0 SEEN /hpf (0-5)
[2021-02-04 17:54] LABS: Color, Urine Straw (Yellow); Glucose, Dipstick Normal (Normal); Ketone-Dipstick Negative (Negative); Leukocyte Esterase-Dipstick Negative /ul (Negative); Nitrite-Dipstick Negative (Negative); Occult Blood-Urine Negative /ul (Negative); Protein-Dipstick Negative (Negative); Urine Bilirubin Dipstick Negative (Negative); Urine Clarity Clear (Clear); Urine Urobilinogen Normal (Normal)
[2021-02-04 18:08] LABS: Squamous Epithelial Cells - UA 0-5 SEEN /hpf (5-10); White Blood Cells 0-5 SEEN /hpf (0-5)
[2021-02-04 18:09] LABS: ALB/GLOB Ratio 0.7 RATIO (0.9-2.4); AST(SGOT) 12 U/L (15-37); Alanine Aminotransfer ALT/SGPT 14 U/L (13-56); Albumin, Serum 2.9 g/dL (3.2-5.0); Alkaline Phosphatase 59 U/L (45-117); Anion Gap 10 (5-15); BUN 7 mg/dL (7-18); BUN/Creat Ratio 16.7 RATIO (10-20); Calcium,Total 8.4 mg/dL (8.5-10.1); Chloride 107 mmol/L (98-107); Creatinine, Serum 0.42 mg/dL (0.55-1.02); EST Glomerular Filtration Rate 182 mL/min (>60); Est Glom Filt Rate - Afr Amer 221 mL/min (>60); Globulin 3.9 g/dL (2.2-4.2); Glucose 80 mg/dL (74-106); LDH 116 U/L (84-246); Potassium 3.8 mmol/L (3.5-5.1); Protein, Total 6.8 g/dL (6.4-8.2); Sodium Level 140 mmol/L (136-145)
[2021-02-04 18:09] LABS: Bacteria 1+ /hpf (None Seen)
[2021-02-04 18:13] LABS: Absolute Lymphocyte Count 2.06 X10^3/uL (0.83-4.51); Absolute Neutrophil Count 5.4 X10^3/uL (2.0-7.7); Basophil# 0.04 X10^3/uL; Basophil% 0.5 % (0-1); Eosinophil# 0.26 X10^3/uL; Eosinophils% 3.1 % (0-5); Hematocrit 34.1 % (37-47); Hemoglobin 11.6 g/dL (12.0-15.0); Lymphocyte # 2.06 X10^3/ul (0.83-4.51); Lymphocyte % 24.3 % (19-41); Mean Corpuscular Hgb 30.9 pg (27.0-32.0); Mean Corpuscular Volume 90.7 fL (81-99); Mean Platelet Vol. 10.1 fl (6.2-12.0); Monocyte# 0.58 X10^3/uL; Monocyte% 6.9 % (0-10); NRBC Flagged by Analyzer 0 % (0-5); Neutrophil # 5.44 X10^3/uL (2.7-7.7); Neutrophil % 64.3 % (47-70); Platelet Count 215 K/mm3 (150-450); RBC Distribution Width CV 14.6 % (11.6-14.6); RBC Distribution Width SD 48.1 fl (35.1-43.9); Red Blood Count 3.76 M/mm3 (4.2-5.4); White Blood Count 8.5 K/mm3 (4.4-11.0)
[2021-02-04 18:19] LABS: Creatinine, Urine (random) < 13.00 mg/dL (NO RANGE EST.); Protein, Urine (Random) < 6.0 mg/dL (<11.9)
--- NOTE | 2021-02-04 18:48 | OB.TRI.HP_ITS ---
HPI - General HPI Narrative FANNY CELAYA, is a 35 F who presents with headache PFSH PFSH Medical History (Updated 01/14/21 @ 14:[address] Ralph Spears MD) Anemia Anxiety Arthritis Asthma Asthma Renteria's palsy Breast cyst Cephalalgia Depression Ectopic Fever Heart murmur Hemoperitoneum History of vaginal delivery Hypocalcemia Hypoglycemia Immunosuppressed status Leukopenia Migraines Nausea & vomiting Osteopenia Palpitations PFO (patent foramen ovale) Rheumatoid arthritis Urinary tract infection Home Medications albuterol sulfate 90 mcg INHALATION Q6H PRN PRN 02/06/19 [History Last Taken Unk nown] cholecalciferol (vitamin D3) 50 mcg (2,000 unit) capsule 1,000 unit PO DAILY cap 12/29/19 [History Last Taken 06/04/20 07:30 1000 UNIT] certolizumab pegol 400 mg SQ .Q2WEEK 05/22/20 [History Last Taken 05/18/20] vit,[id number] 1 tablet PO DAILY 06/01/20 [History Last Taken 06/04/20 07:30 1 TABLET] ondansetron HCl 4 mg tablet 4 mg PO Q8H PRN #14 tab 12/04/20 [Rx Last Taken Un known] aspirin 81 mg PO DAILY 12/07/20 [History Last Taken Unknown] magnesium 250 mg tablet 500 mg PO DAILY tab 01/14/21 [History Last Taken Unknown] acetylcysteine [NAC] mg 02/04/21 [History Last Taken Unknown] Allergy/AdvReac Type Severity Reaction Status Date / Time cephalexin [From Keflex] Allergy Severe Hives Verified 02/04/21 17:14 doxycycline Allergy Severe Unknown Verified 02/04/21 17:14 Penicillins Allergy Severe Unknown Verified 02/04/21 17:14 piperacillin sodium Allergy Severe Anaphylaxis Verified 02/04/21 17:14 [From Zosyn] tazobactam sodium Allergy Severe Anaphylaxis Verified 02/04/21 17:14 [From Zosyn] vancomycin Allergy Severe Unknown Verified 02/04/21 17:14 bee pollen [Bee Pollen] Allergy Mild Swelling Verified 02/04/21 17:14 tramadol AdvReac Severe Nausea/Vom/ Verified 02/04/21 17:14 Diarrhea Family History Grandmother Cancer ovarian Arthritis Mother Arthritis Depression Other CAD (coronary artery disease) Mixed hyperlipidemia Surgical History History of cholecystectomy History of right oophorectomy Hx of appendectomy Social History Smoking Status: Never smoker alcohol intake: current alcohol intake frequency: a few times a month Alcohol type: wine caffeine: Yes Type: coffee Number of servings: 1 and tea Number of servings: 1 what type of physical activity do you participate in: walking, running, bicycling, yoga and weight training frequency: 5-6 times per week Physical Exam Const alert, oriented x3, no apparent distress, average body habitus, healthy appearing and well nourished HEENT moist oral mucous membranes Head and Scalp: normocephalic and atraumatic Face and Sinus: normal facial exam Eyes PERRL Neck full ROM Resp normal respiratory effort, no retractions and no use of accessory muscles GI normal to inspection, nondistended, normoactive bowel sounds GI Narrative: Bedside ultrasound: Subjectively normal JUANITA Extremity normal to inspection, full ROM and no clubbing, cyanosis or edema Neuro deep tendon reflexes 2+ bilaterally Motor Exam: clonus absent Psych mental status grossly normal, affect normal, speech normal and activity/motor behavior normal NST FHR Rate Baby A Baseline: 130 Variability:: Moderate Accelerations:: 10 x 10 Decelerations:: None NST Reactive:: Yes Uterine Activity:: Quiet Assessment & Plan (1) Headache: PLAN: Patient arrives with headache. Now resolved. HELLP labs within normal limits. Bedside ultrasound reassuring. Exam benign. Blood pressures within normal limits. Educated patient on results, okay to discharge home and follow-up at scheduled appointments
== END 2021-02-04 18:35 | disposition home or self-care (01) ==
LOC: WPOUT 17:05 → WP 17:07
PROVIDERS: PCP Family Medicine; Visit Provider Obstetrics & Gynecology
DX: O26.899 Other specified pregnancy related conditions, unspecified trimester (principal); Z3A.00 Weeks of gestation of pregnancy not specified
CPT/HCPCS: 59025; 59050; 80053; 81001; 82570; 83615; 84156; 85025; 99218; G0378

== ENCOUNTER → 2021-02-06 08:50 | Outpatient (CLI) | payer OTHER, SELFPAY ==
[2021-02-06 10:56] LABS: Hematocrit 33.1 % (37-47); Hemoglobin 11.4 g/dL (12.0-15.0); Mean Corp Hgb Conc 34.4 g/dL (32-36); Mean Corpuscular Hgb 30.6 pg (27.0-32.0); Mean Corpuscular Volume 88.7 fL (81-99); Mean Platelet Vol. 10.3 fl (6.2-12.0); Platelet Count 205 K/mm3 (150-450); RBC Distribution Width CV 14.6 % (11.6-14.6); RBC Distribution Width SD 46.7 fl (35.1-43.9); Red Blood Count 3.73 M/mm3 (4.2-5.4); White Blood Count 8.6 K/mm3 (4.4-11.0)
[2021-02-06 11:04] LABS: Glucose Challenge Gest 1H 50g 126 mg/dL (70-140)
== END ==
PROVIDERS: PCP Family Medicine; Visit Provider Obstetrics & Gynecology
DX: Z34.82 Encounter for supervision of other normal pregnancy, second trimester (principal)
CPT/HCPCS: 36415; 82950; 85027

== ENCOUNTER 2021-03-27 06:55 | Outpatient (CLI) | payer OTHER, SELFPAY ==
[2021-03-27 08:17] LABS: Hemoglobin 11.8 g/dL (12.0-15.0); Mean Corp Hgb Conc 33.7 g/dL (32-36); Mean Corpuscular Hgb 29.6 pg (27.0-32.0); Mean Corpuscular Volume 87.9 fL (81-99); Mean Platelet Vol. 10.1 fl (6.2-12.0); Platelet Count 225 K/mm3 (150-450); RBC Distribution Width CV 12.7 % (11.6-14.6); RBC Distribution Width SD 40.7 fl (35.1-43.9); Red Blood Count 3.98 M/mm3 (4.2-5.4)
[2021-03-27 08:47] LABS: ALB/GLOB Ratio 0.6 RATIO (0.9-2.4); AST(SGOT) 11 U/L (15-37); Alanine Aminotransfer ALT/SGPT 17 U/L (13-56); Albumin, Serum 2.5 g/dL (3.2-5.0); Alkaline Phosphatase 101 U/L (45-117); Anion Gap 7 (5-15); BUN 10 mg/dL (7-18); Calcium,Total 8.5 mg/dL (8.5-10.1); Chloride 108 mmol/L (98-107); EST Glomerular Filtration Rate 148 mL/min (>60); Est Glom Filt Rate - Afr Amer 179 mL/min (>60); Globulin 4.3 g/dL (2.2-4.2); Glucose 78 mg/dL (74-106); Potassium 3.8 mmol/L (3.5-5.1); Protein, Total 6.8 g/dL (6.4-8.2); Sodium Level 138 mmol/L (136-145); T4 Total, Thyroxin 9.9 ug/dL (4.8-13.9); Thyroid Stim Hormone (TSH) 3.15 uIU/mL (0.358-3.74)
== END 2021-03-27 23:59 | disposition home or self-care (01) ==
LOC: LAB 06:57
PROVIDERS: PCP Family Medicine; Referring Provider Obstetrics & Gynecology; Visit Provider Obstetrics & Gynecology
DX: O26.899 Other specified pregnancy related conditions, unspecified trimester (principal); D69.6 Thrombocytopenia, unspecified
CPT/HCPCS: 36415; 80053; 84436; 84443; 85027

== ENCOUNTER 2021-04-19 11:56 | Outpatient (CLI) | payer OTHER, SELFPAY ==
[2021-04-19 12:10] LABS: Hematocrit 35.6 % (37-47); Hemoglobin 12.3 g/dL (12.0-15.0); Mean Corp Hgb Conc 34.6 g/dL (32-36); Mean Corpuscular Hgb 29.7 pg (27.0-32.0); Mean Platelet Vol. 9.9 fl (6.2-12.0); Platelet Count 204 K/mm3 (150-450); RBC Distribution Width CV 13.2 % (11.6-14.6); RBC Distribution Width SD 40.8 fl (35.1-43.9); Red Blood Count 4.14 M/mm3 (4.2-5.4); White Blood Count 11.2 K/mm3 (4.4-11.0)
[2021-04-19 12:24] LABS: Protein, Urine (Random) 17.7 mg/dL (<11.9); Protein:Creat Ratio 154 mg/g CRE (0-200)
--- NOTE | 2021-04-19 12:30 | RAD_ITS ---
STUDY: X-RAY - RIGHT FOOT CLINICAL: Female, 35 years old. FOOT PAIN TECHNIQUE: 3 view(s) of the foot. COMPARISON: None. FINDINGS: Normal talus, calcaneus, and tarsal bones. Normal visualized subtalar, talonavicular, calcaneocuboid, tarsal and tarsometatarsal articulations. Normal metatarsi. Normal metatarsophalangeal joint of the great toe. Normal tibial and fibular sesamoid bones. Normal interphalangeal joint of the great toe. Normal phalanges of the great toe. Normal second through fifth metatarsophalangeal joints. Normal interphalangeal joints and phalanges of the lesser toes. The soft tissue structures are unremarkable. RAD/Foot min 3 Views IMPRESSION: Normal x-ray examination of the foot. Electronically Signed: Toby Paz MD at 13:03 EST ,
[2021-04-19 12:54] LABS: ALB/GLOB Ratio 0.6 RATIO (0.9-2.4); AST(SGOT) 14 U/L (15-37); Alanine Aminotransfer ALT/SGPT 14 U/L (13-56); Albumin, Serum 2.6 g/dL (3.2-5.0); Alkaline Phosphatase 128 U/L (45-117); Anion Gap 7 (5-15); BUN 6 mg/dL (7-18); BUN/Creat Ratio 10.8 RATIO (10-20); Calcium,Total 8.6 mg/dL (8.5-10.1); Chloride 109 mmol/L (98-107); Creatinine, Serum 0.56 mg/dL (0.55-1.02); EST Glomerular Filtration Rate 131 mL/min (>60); Est Glom Filt Rate - Afr Amer 158 mL/min (>60); Globulin 4.3 g/dL (2.2-4.2); Glucose 83 mg/dL (74-106); LDH 137 U/L (84-246); Potassium 3.9 mmol/L (3.5-5.1); Protein, Total 6.9 g/dL (6.4-8.2); Sodium Level 139 mmol/L (136-145); Uric Acid 4.8 mg/dL (2.6-6.0)
== END 2021-04-19 23:59 | disposition home or self-care (01) ==
PROVIDERS: PCP Family Medicine; Referring Provider Family Medicine; Visit Provider Obstetrics & Gynecology
DX: O99.893 Other specified diseases and conditions complicating puerperium (principal); M79.671 Pain in right foot; O13.3 Gestational [pregnancy-induced] hypertension without significant proteinuria, third trimester; Z3A.00 Weeks of gestation of pregnancy not specified
CPT/HCPCS: 36415; 73630; 80053; 82570; 83615; 84156; 84550; 85027

== ENCOUNTER 2021-04-25 16:41 | Outpatient (CLI) | payer OTHER, SELFPAY ==
[2021-04-25 17:42] LABS: Hematocrit 34.6 % (37-47); Hemoglobin 11.8 g/dL (12.0-15.0); Mean Corp Hgb Conc 34.1 g/dL (32-36); Mean Corpuscular Hgb 29.4 pg (27.0-32.0); Mean Corpuscular Volume 86.1 fL (81-99); Mean Platelet Vol. 10.6 fl (6.2-12.0); Platelet Count 214 K/mm3 (150-450); RBC Distribution Width CV 13.2 % (11.6-14.6); RBC Distribution Width SD 40.7 fl (35.1-43.9); Red Blood Count 4.02 M/mm3 (4.2-5.4); White Blood Count 10.5 K/mm3 (4.4-11.0)
[2021-04-25 18:06] LABS: ALB/GLOB Ratio 0.7 RATIO (0.9-2.4); AST(SGOT) 11 U/L (15-37); Alanine Aminotransfer ALT/SGPT 14 U/L (13-56); Albumin, Serum 2.7 g/dL (3.2-5.0); Alkaline Phosphatase 140 U/L (45-117); Anion Gap 8 (5-15); BUN 8 mg/dL (7-18); BUN/Creat Ratio 14.4 RATIO (10-20); Calcium,Total 8.4 mg/dL (8.5-10.1); Chloride 107 mmol/L (98-107); Creatinine, Serum 0.56 mg/dL (0.55-1.02); EST Glomerular Filtration Rate 131 mL/min (>60); Est Glom Filt Rate - Afr Amer 159 mL/min (>60); Globulin 4.1 g/dL (2.2-4.2); Glucose 104 mg/dL (74-106); LDH 126 U/L (84-246); Potassium 3.7 mmol/L (3.5-5.1); Protein, Total 6.8 g/dL (6.4-8.2); Sodium Level 138 mmol/L (136-145)
[2021-04-25 18:13] LABS: Protein:Creat Ratio 237 mg/g CRE (0-200)
== END 2021-04-25 23:59 | disposition home or self-care (01) ==
LOC: WOBLAB 16:42
PROVIDERS: PCP Family Medicine; Visit Provider Student in an Organized Health Care Education/Training Program
DX: O13.3 Gestational [pregnancy-induced] hypertension without significant proteinuria, third trimester (principal); Z3A.00 Weeks of gestation of pregnancy not specified
CPT/HCPCS: 36415; 80053; 82570; 83615; 84156; 85027; 87086; 87088

== ENCOUNTER 2021-04-30 15:22 | Outpatient (CLI) | payer OTHER, SELFPAY ==
[2021-04-30 15:27] VITALS: BMI 31.4
[2021-04-30 15:41] VITALS: BP 133/66; PULSE 72; TEMP 36.5
[2021-04-30 15:48] LABS: Mucous, Urine 0 SEEN /hpf (<or=2+); Red Blood Cells-Urine 0 SEEN /hpf (0-5)
[2021-04-30 15:53] LABS: Hematocrit 34.2 % (37-47); Hemoglobin 12.1 g/dL (12.0-15.0); Mean Corp Hgb Conc 35.4 g/dL (32-36); Mean Corpuscular Hgb 30.1 pg (27.0-32.0); Mean Corpuscular Volume 85.1 fL (81-99); Mean Platelet Vol. 10.2 fl (6.2-12.0); Platelet Count 210 K/mm3 (150-450); RBC Distribution Width CV 13.2 % (11.6-14.6); Red Blood Count 4.02 M/mm3 (4.2-5.4); White Blood Count 9.4 K/mm3 (4.4-11.0)
[2021-04-30] MEDS: Lactated Ringers 1,000 ML 999 ML IV (16:00)
[2021-04-30 16:01] LABS: Color, Urine Yellow (Yellow); Glucose, Dipstick Normal (Normal); Ketone-Dipstick Negative (Negative); Leukocyte Esterase-Dipstick 100 /ul (Negative); Nitrite-Dipstick Negative (Negative); Occult Blood-Urine Negative /ul (Negative); Protein-Dipstick 15 mg/dl (Negative); Urine Bilirubin Dipstick Negative (Negative); Urine Clarity Clear (Clear); Urine Urobilinogen Normal (Normal)
[2021-04-30 16:09] LABS: Bacteria 1+ /hpf (None Seen); Squamous Epithelial Cells - UA 0-5 SEEN /hpf (5-10); White Blood Cells 0-5 SEEN /hpf (0-5)
[2021-04-30 16:11] VITALS: BP 120/57; PULSE 74
[2021-04-30 16:14] LABS: Protein, Urine (Random) 18.2 mg/dL (<11.9); Protein:Creat Ratio 135 mg/g CRE (0-200)
[2021-04-30 16:30] LABS: AST(SGOT) 12 U/L (15-37); Alanine Aminotransfer ALT/SGPT 13 U/L (13-56); Creatinine, Serum 0.58 mg/dL (0.55-1.02); EST Glomerular Filtration Rate 124 mL/min (>60); Est Glom Filt Rate - Afr Amer 150 mL/min (>60); Estimated Creatinine Clearance 135.27 ml/min; Uric Acid 4.6 mg/dL (2.6-6.0)
[2021-04-30 16:41] VITALS: BP 120/64; PULSE 70
[2021-04-30 17:11] VITALS: BP 118/58; PULSE 72
[2021-04-30] MEDS: Acetaminophen/Butalbital/Caffe 1 Tablet 2 TABLET PO (17:30)
[2021-04-30 17:42] VITALS: BP 116/56; PULSE 71
--- NOTE | 2021-04-30 18:00 | PCM.PN.BLA ---
Progress Note HPI: 35-year-old G5, P2 at 36/1 weeks, KARLY 05/27/2021, presenting for elevated blood pressures in office. Patient has had blood pressures in the 140 systolic at home and today was elevated in the office as well. Reports headache that is generalized. Headache improves with rest. Denies right upper quadrant pain, emesis, chest pain or shortness of breath. 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 1 05/17/01 8 wks 0 hrs Sab 2 05/08/05 Female 37 wks 29 hrs Vacuum 3 12/01/06 Male 41 wks 12 hrs Vag 4 06/25/20 6 wks 0 hrs Ectopic Medical history: Rheumatoid arthritis, asthma Surgical history: Appendectomy, cholecystectomy, diagnostic laparoscopy with evacuation of hemoperitoneum, laparoscopy removal of left ovarian ectopic, laparoscopy right ovarian cyst aspiration, suction D&C, wisdom teeth extraction Allergies: Doxycycline, Zosyn, tramadol, vancomycin Social history: Denies tobacco alcohol and drug use Medications: Albuterol, Cimzia, magnesium, Physical exam: Blood pressure 116/56, pulse 71 General: No acute distress, resting in bed HEENT: Normocephalic/atraumatic, PERRLA Cardiorespiratory: No increased effort Abdomen: Soft, nontender, gravid, no right upper quadrant tenderness Extremities: Minimal edema Neurologic: Cranial nerves II through XII grossly intact, patellar reflexes 2/4 bilaterally, no clonus heart rate: 145/moderate variability/accelerations present/no decelerations [place] quiet Assessment/plan: 35-year-old at 36/1 weeks presenting to triage for elevated blood pressures and headache. -Blood pressures while on labor and delivery within normal limits -Labs within normal limits -Fioricet for headache. Headache improved during stay. -1 L LR bolus -Diagnosis of gestational hypertension: Recommend induction of labor at 37 weeks. To be scheduled. -No evidence of severe preeclampsia at this time. Patient to return for blood pressure elevated 160/110, headache persistent or worsening, visual disturbance, right upper quadrant pain, emesis. Patient understands and all questions answered. Okay to discharge home
[2021-04-30 18:11] VITALS: BP 120/60; PULSE 76
== END 2021-04-30 23:59 | disposition home or self-care (01) ==
LOC: WPOUT 15:23 → WP 15:24
PROVIDERS: PCP Family Medicine; Visit Provider Student in an Organized Health Care Education/Training Program
DX: O13.3 Gestational [pregnancy-induced] hypertension without significant proteinuria, third trimester (principal); M06.9 Rheumatoid arthritis, unspecified; O09.523 Supervision of elderly multigravida, third trimester; Z3A.36 36 weeks gestation of pregnancy; O99.891 Other specified diseases and conditions complicating pregnancy; O99.52 Diseases of the respiratory system complicating childbirth; J45.909 Unspecified asthma, uncomplicated
CPT/HCPCS: 96360; 36415; 59025; 59050; 81001; 82565; 82570; 84156; 84450; 84460; 84550; 85027; 87081; 99218; J7120; G0378

== ENCOUNTER 2021-05-09 07:15 | Inpatient (IN) | payer OTHER, SELFPAY ==
[2021-04-30 17:42] VITALS: TEMP 36.9
[2021-05-09] VITALS (15 sets, daily range): BP systolic 108–128; BP diastolic 56–80; PULSE 59–76; TEMP 36.1–36.6; O2SAT 96–98; BMI 31.6
[2021-05-09] MEDS: Lactated Ringers 1,000 ML 50 ML IV (08:05)
[2021-05-09 08:24] LABS: Absolute Lymphocyte Count 2.19 X10^3/uL (0.83-4.51); Basophil# 0.06 X10^3/uL; Basophil% 0.6 % (0-1); Eosinophil# 0.43 X10^3/uL; Eosinophils% 4.5 % (0-5); Hematocrit 34.8 % (37-47); Hemoglobin 12.2 g/dL (12.0-15.0); Lymphocyte # 2.19 X10^3/ul (0.83-4.51); Mean Corp Hgb Conc 35.1 g/dL (32-36); Mean Corpuscular Hgb 30.3 pg (27.0-32.0); Mean Corpuscular Volume 86.6 fL (81-99); Mean Platelet Vol. 10.1 fl (6.2-12.0); Monocyte# 0.71 X10^3/uL; Monocyte% 7.4 % (0-10); NRBC Flagged by Analyzer 0 % (0-5); Neutrophil # 5.99 X10^3/uL (2.7-7.7); Neutrophil % 62.8 % (47-70); Platelet Count 188 K/mm3 (150-450); RBC Distribution Width CV 13.6 % (11.6-14.6); RBC Distribution Width SD 41.7 fl (35.1-43.9); Red Blood Count 4.02 M/mm3 (4.2-5.4); White Blood Count 9.5 K/mm3 (4.4-11.0)
--- NOTE | 2021-05-09 08:30 | PCM.HP.BLA ---
History and Physical Date of Admission: 05/09/21 Plan: Induction of labor, gestational hypertension History of present illness: 35-year-old G5, P2 at 37 weeks and 3 days with KARLY 05/27/2021 arrives for induction of labor at term for gestational hypertension. Denies headache, visual changes, chest pain, shortness of breath, nausea vomiting, right upper quadrant pain. Patient states good movement. is complicated by gestational hypertension, AMA Obstetric history: G1: SAB 05/17/2001 G2: 37-week vacuum-assisted vaginal delivery 04/2005 G3: 41-week 12/01/2006 G4: Ectopic 06/25/2020 G5: Current Past medical history: Rheumatoid arthritis, anxiety, asthma Medications: Cimzia, vitamin, albuterol Past surgical history: Diagnostic laparoscopy and right ovarian cyst aspiration, left ectopic removal salpingostomy, cholecystectomy, diagnostic laparoscopy, D&C, wisdom tooth extraction, appendectomy Allergies: Zosyn, doxycycline, tramadol, vancomycin Social history: Former smoker, denies alcohol or drug use Family history: Denies history DVT or PE Review of systems: Besides above pertinent positives a full review of systems was performed and found to be negative Physical exam: Vitals: Blood pressure 124/74 pulse 70 SPO2 98% on room air General: Normal-appearing no acute distress none HEENT: Normocephalic/atraumatic no cervical of adenopathy Cardiac/respiratory: No use of accessory muscles, nonlabored breathing Abdomen: Soft, nontender, gravid Extremities: No peripheral edema normal peripheral pulses Psych: Normal affect normal demeanor nonpressured speech Labs: White blood cell count 9.5 hemoglobin 12.2 hematocrit 34.8% platelets 188 Assessment plan: 35-year-old G5, P2 at 37 weeks and 3 days arrives for induction of labor at term for gestational hypertension Admit to labor and delivery CEFM GBS negative Cytotec induction Gestational hypertension: Asymptomatic, will continue to monitor blood pressures
[2021-05-09] MEDS: miSOPROStol 25 MCG TABLET VAGINAL (08:38)
[2021-05-09 09:43] LABS: Amphetamine Urine VISTA NEGATIVE (<1000 ng/mL); Barbiturate Urine VISTA POSITIVE (< 200 ng/mL); Benzodiazepine Urine VISTA NEGATIVE (< 200 ng/mL); Cocaine Urine VISTA NEGATIVE (< 300 ng/mL); Ecstacy Urine VISTA NEGATIVE (< 500 ng/mL); Methadone Urine VISTA NEGATIVE (< 300 ng/mL); PCP Urine VISTA NEGATIVE (< 25 ng/mL); THC Urine VISTA NEGATIVE (< 50 ng/mL); Vista UDS pH Range 6
--- NOTE | 2021-05-09 12:51 | PN.OBGYN_ITS ---
Subjective Subjective Started feeling increased pain with contractions Objective Data Objective Data Vital Signs: Vital Signs Temp Pulse BP Pulse Ox 97.3 F L 71 121/60 H 98 05/09/21 12:42 05/09/21 12:42 05/09/21 12:42 05/09/21 12:42 Weight: 208 lb 5.389 oz Body Mass Index (BMI) 31.6 Lab / Micro Data Result Diagrams: 05/09/21 08:05 Labs: Laboratory Results - last 24 hr 05/09/21 08:05: WBC 9.5, RBC 4.02 L, Hgb 12.2, Hct 34.8 L, MCV 86.6, MCH 30.3, MCHC 35.1, RDW Std Deviation 41.7, RDW Coeff of Keiko 13.6, Plt Count 188, MPV 10.1, Immature Gran % (Auto) 1.700 H, Neut % (Auto) 62.8, Lymph % (Auto) 23.0, [place] % (Auto) 7.4, Eos % (Auto) 4.5, Baso % (Auto) 0.6, Absolute Neuts (auto) 6.0, Absolute Lymphs (auto) 2.19, Nucleated RBC % 0 05/09/21 08:05: Blood Type B POSITIVE, Antibody Screen NEGATIVE 05/09/21 09:00: Urine Opiates Screen NEGATIVE, Urine Methadone Screen NEGATIVE, Ur Barbiturates Screen POSITIVE H, Ur Phencyclidine Scrn NEGATIVE, Ur Amphetamines Screen NEGATIVE, MDMA (Ecstasy) Screen NEGATIVE, U Benzodiazepines Scrn NEGATIVE, Urine Cocaine Screen NEGATIVE, U Cannabinoids Screen NEGATIVE, Ur Drug Screen Comment Micro: Microbiology 05/09/21 09:00 Nasal Secretion SARS-CoV-2 Antigen (Rapid) - Final Physical Exam Const alert, oriented x3, no apparent distress, average body habitus, healthy appearing and well nourished HEENT normocephalic and moist oral mucous membranes Head and Scalp: atraumatic Face and Sinus: normal facial exam Neck full ROM Resp normal respiratory effort, no retractions and no use of accessory muscles Extremity normal to inspection, full ROM and no clubbing, cyanosis or edema Psych mental status grossly normal, affect normal, speech normal and activity/motor behavior normal Assessment & Plan (1) : PLAN: Patient seen and examined. Starting to feel increased pain with contractions after 1 dose of Cytotec. Will likely need to switch to Pitocin based on contraction pattern. Asymptomatic, blood pressure nonsevere range. Cervical exam per nursing closed
--- NOTE | 2021-05-09 18:15 | PCM.PN.OB ---
Subjective Subjective No complaints Objective Data Objective Data Vital Signs: Vital Signs Temp Pulse BP Pulse Ox 97.1 F L 65 127/77 H 98 05/09/21 14:37 05/09/21 18:05 05/09/21 18:05 05/09/21 12:42 Weight: 208 lb 5.389 oz Body Mass Index (BMI) 31.6 Lab / Micro Data Result Diagrams: 05/09/21 08:05 Labs: Laboratory Results - last 24 hr 05/09/21 08:05: WBC 9.5, RBC 4.02 L, Hgb 12.2, Hct 34.8 L, MCV 86.6, MCH 30.3, MCHC 35.1, RDW Std Deviation 41.7, RDW Coeff of Keiko 13.6, Plt Count 188, MPV 10.1, Immature Gran % (Auto) 1.700 H, Neut % (Auto) 62.8, Lymph % (Auto) 23.0, [place] % (Auto) 7.4, Eos % (Auto) 4.5, Baso % (Auto) 0.6, Absolute Neuts (auto) 6.0, Absolute Lymphs (auto) 2.19, Nucleated RBC % 0 05/09/21 08:05: Blood Type B POSITIVE, Antibody Screen NEGATIVE 05/09/21 09:00: Urine Opiates Screen NEGATIVE, Urine Methadone Screen NEGATIVE, Ur Barbiturates Screen POSITIVE H, Ur Phencyclidine Scrn NEGATIVE, Ur Amphetamines Screen NEGATIVE, MDMA (Ecstasy) Screen NEGATIVE, U Benzodiazepines Scrn NEGATIVE, Urine Cocaine Screen NEGATIVE, U Cannabinoids Screen NEGATIVE, Ur Drug Screen Comment Micro: Microbiology 05/09/21 09:00 Nasal Secretion SARS-CoV-2 Antigen (Rapid) - Final Physical Exam Const alert, oriented x3, no apparent distress, average body habitus, healthy appearing and well nourished HEENT normocephalic and moist oral mucous membranes Head and Scalp: atraumatic Face and Sinus: normal facial exam Neck full ROM Resp normal respiratory effort, no retractions and no use of accessory muscles Extremity normal to inspection, full ROM and no clubbing, cyanosis or edema Psych mental status grossly normal, affect normal, speech normal and activity/motor behavior normal Assessment & Plan (1) : PLAN: Patient seen and examined. Cytotec dose given. At this time will give repeat Cytotec dose. Patient wishes to hold on AROM at this time.
[2021-05-09] MEDS: Lactated Ringers 500 ML 999 ML IV (18:20)
[2021-05-09] MEDS: Ondansetron 4 MG/2 ML Vial IV (19:55)
[2021-05-09] MEDS: Oxytocin 30 units/NS 500 ml 30 UNITS/500 ML IV.SOLN IV (21:30)
[2021-05-10] VITALS (45 sets, daily range): BP systolic 106–131; BP diastolic 54–73; PULSE 55–93; TEMP 36.2–36.7; O2SAT 95–99
[2021-05-10] MEDS: Lactated Ringers 1,000 ML 50 ML IV ×2 (00:21→20:54)
[2021-05-10] MEDS: Ondansetron 4 MG/2 ML Vial IV (07:39)
--- NOTE | 2021-05-10 08:19 | PCM.PN.OB ---
Subjective Subjective No complaints Objective Data Objective Data Vital Signs: Vital Signs Temp Pulse BP Pulse Ox 97.1 F L 59 L 114/60 98 05/10/21 07:23 05/10/21 07:24 05/10/21 07:23 05/10/21 07:24 Weight: 208 lb 5.389 oz Body Mass Index (BMI) 31.6 Intake & Output: Intake and Output for Last 24 Hours 05/08/21 05/09/21 05/10/21 23:59 23:59 23:59 Intake Total 1021.90 / 1021.90 341.87 / 341.87 Output Total 700 / 700 Balance 1021.90 / 1021.90 -358.13 / -358.13 Lab / Micro Data Result Diagrams: 05/09/21 08:05 Labs: Laboratory Results - last 24 hr 05/09/21 08:05: WBC 9.5, RBC 4.02 L, Hgb 12.2, Hct 34.8 L, MCV 86.6, MCH 30.3, MCHC 35.1, RDW Std Deviation 41.7, RDW Coeff of Keiko 13.6, Plt Count 188, MPV 10.1, Immature Gran % (Auto) 1.700 H, Neut % (Auto) 62.8, Lymph % (Auto) 23.0, [place] % (Auto) 7.4, Eos % (Auto) 4.5, Baso % (Auto) 0.6, Absolute Neuts (auto) 6.0, Absolute Lymphs (auto) 2.19, Nucleated RBC % 0 05/09/21 08:05: Blood Type B POSITIVE, Antibody Screen NEGATIVE 05/09/21 09:00: Urine Opiates Screen NEGATIVE, Urine Methadone Screen NEGATIVE, Ur Barbiturates Screen POSITIVE H, Ur Phencyclidine Scrn NEGATIVE, Ur Amphetamines Screen NEGATIVE, MDMA (Ecstasy) Screen NEGATIVE, U Benzodiazepines Scrn NEGATIVE, Urine Cocaine Screen NEGATIVE, U Cannabinoids Screen NEGATIVE, Ur Drug Screen Comment Micro: Microbiology 05/09/21 09:00 Nasal Secretion SARS-CoV-2 Antigen (Rapid) - Final Physical Exam Const alert, oriented x3, no apparent distress, average body habitus, healthy appearing and well nourished HEENT normocephalic and moist oral mucous membranes Head and Scalp: atraumatic Face and Sinus: normal facial exam Neck full ROM Resp normal respiratory effort, no retractions and no use of accessory muscles Extremity normal to inspection, full ROM and no clubbing, cyanosis or edema Psych mental status grossly normal, affect normal, speech normal and activity/motor behavior normal Assessment & Plan (1) : PLAN: Patient previously on Cytotec, now switch to Pitocin. We will continue to monitor and use either Cytotec or Pitocin to augment labor. At this time patient continues to withhold AROM. Considering epidural
[2021-05-10] MEDS: miSOPROStol 25 MCG TABLET VAGINAL ×3 (11:14→21:17)
[2021-05-10] MEDS: Lactated Ringers 500 ML 999 ML IV (20:55)
[2021-05-11] VITALS (12 sets, daily range): BP systolic 103–119; BP diastolic 55–72; PULSE 57–66; TEMP 36–36.5; O2SAT 97–99
[2021-05-11] MEDS: miSOPROStol 25 MCG TABLET VAGINAL ×2 (01:45→05:43)
--- NOTE | 2021-05-11 09:57 | PN.OBGYN_ITS ---
Subjective Subjective Patient now hospital day #2 for induction for PIH. She was initially started with Cytotec then she had Pitocin to its maximum dose and then another course of Cytotec overnight. She continues with minimal contractions with no cervical change at 2-3/50/high. Refuses rupture of membranes at this point. Blood press ures have remained normal throughout her stay. We discussed options of repeating Pitocin which I believe will have no different result; she is considering going home with expectant management given that her blood pressures are normal. I recommended rupture of membranes with Pitocin augmentation if needed. I also believe going home on modified bedrest is a lower risk option at this point than a section for uninducible cervix given that her blood pressures have remained normal with no PIH symptoms. Baby's heart tones have also been reactive throughout her stay. Will check CBC with differential to confirm no underlying elevation of white count given her cervix has been checked multiple times during the stay. If Michelle goes home she plans to check her blood pressures several times per day and to call or immediately return if they are elevated over 145/95. She will also follow-up in the office next week for routine care. Objective Data Objective Data Vital Signs: Vital Signs Temp Pulse BP Pulse Ox 97.7 F L 64 114/60 98 05/11/21 07:41 05/11/21 07:41 05/11/21 07:41 05/11/21 07:41 Weight: 208 lb 5.389 oz Body Mass Index (BMI) 31.6 Intake & Output: Intake and Output for Last 24 Hours 05/09/21 05/10/21 05/11/21 23:59 23:59 23:59 Intake Total 1021.90 / 1021.90 3161.40 / 3161.40 900 / 900 Output Total 2550 / 2550 900 / 900 Balance 1021.90 / 1021.90 611.40 / 611.40 0 / 0 Lab / Micro Data Result Diagrams: 05/09/21 08:05 Micro: Microbiology 05/09/21 09:00 Nasal Secretion SARS-CoV-2 Antigen (Rapid) - Final
[2021-05-11 10:20] LABS: Absolute Lymphocyte Count 1.88 X10^3/uL (0.83-4.51); Absolute Neutrophil Count 7.1 X10^3/uL (2.0-7.7); Basophil# 0.05 X10^3/uL; Basophil% 0.5 % (0-1); Eosinophil# 0.28 X10^3/uL; Eosinophils% 2.7 % (0-5); Hematocrit 35.4 % (37-47); Hemoglobin 12.4 g/dL (12.0-15.0); Lymphocyte # 1.88 X10^3/ul (0.83-4.51); Lymphocyte % 18.4 % (19-41); Mean Corpuscular Hgb 29.7 pg (27.0-32.0); Mean Corpuscular Volume 84.7 fL (81-99); Mean Platelet Vol. 10.5 fl (6.2-12.0); Monocyte# 0.81 X10^3/uL; Monocyte% 7.9 % (0-10); NRBC Flagged by Analyzer 0 % (0-5); Neutrophil # 7.12 X10^3/uL (2.7-7.7); Neutrophil % 69.8 % (47-70); Platelet Count 201 K/mm3 (150-450); RBC Distribution Width CV 13.6 % (11.6-14.6); RBC Distribution Width SD 41.6 fl (35.1-43.9); Red Blood Count 4.18 M/mm3 (4.2-5.4); White Blood Count 10.2 K/mm3 (4.4-11.0)
--- NOTE | 2021-05-11 11:32 | NURSING ---
The following educational handouts were given to patient prior to discharge: Movement Counts, Preeclampsia
== END 2021-05-11 11:45 | disposition home or self-care (01) | DRG 833 ==
PROVIDERS: Obstetrics & Gynecology; Admitting Provider Obstetrics & Gynecology; PCP Family Medicine; Visit Provider Obstetrics & Gynecology
DX: O13.3 Gestational [pregnancy-induced] hypertension without significant proteinuria, third trimester (principal); Z3A.37 37 weeks gestation of pregnancy; Z87.891 Personal history of nicotine dependence
CPT/HCPCS: 80307; 85025; 86850; 86900; 86901; 87426; J7120; J2405

== ENCOUNTER 2021-05-17 07:10 | Inpatient (IN) | payer OTHER, SELFPAY ==
[2021-05-17] VITALS (51 sets, daily range): BP systolic 98–144; BP diastolic 52–85; PULSE 56–82; TEMP 36.2–36.9; O2SAT 79–100; BMI 31.3
[2021-05-17] MEDS: Lactated Ringers 1,000 ML 50 ML IV (07:35)
[2021-05-17 07:47] LABS: Absolute Lymphocyte Count 2.56 X10^3/uL (0.83-4.51); Absolute Neutrophil Count 5.7 X10^3/uL (2.0-7.7); Basophil# 0.06 X10^3/uL; Basophil% 0.6 % (0-1); Eosinophil# 0.42 X10^3/uL; Eosinophils% 4.5 % (0-5); Hematocrit 36.2 % (37-47); Hemoglobin 12.6 g/dL (12.0-15.0); Lymphocyte # 2.56 X10^3/ul (0.83-4.51); Lymphocyte % 27.4 % (19-41); Mean Corp Hgb Conc 34.8 g/dL (32-36); Mean Corpuscular Hgb 29.3 pg (27.0-32.0); Mean Corpuscular Volume 84.2 fL (81-99); Mean Platelet Vol. 10.5 fl (6.2-12.0); Monocyte# 0.46 X10^3/uL; Monocyte% 4.9 % (0-10); NRBC Flagged by Analyzer 0 % (0-5); Neutrophil # 5.74 X10^3/uL (2.7-7.7); Neutrophil % 61.5 % (47-70); Platelet Count 223 K/mm3 (150-450); RBC Distribution Width CV 13.7 % (11.6-14.6); RBC Distribution Width SD 42.1 fl (35.1-43.9); White Blood Count 9.3 K/mm3 (4.4-11.0)
[2021-05-17] MEDS: miSOPROStol 25 MCG TABLET VAGINAL ×2 (08:10→11:59)
--- NOTE | 2021-05-17 08:32 | PCM.HP.BLA ---
History and Physical Date of Admission: 05/17/21 Chief complaint: Induction of labor gestational hypertension History present illness: 35-year-old G5, P2 at 38 and 4 with KARLY 05/27/2021 by LMP arrives for induction of labor for gestational hypertension. Denies vision changes, nausea vomiting, right upper quadrant pain, chest pain, shortness of breath. States good movement is complicated by AMA, gestational hypertension Obstetric history: G1: SAB 05/17/2001 G2: 37-week vacuum-assisted vaginal delivery female 05/08/2005 G3: 41-week male 12/01/2006 G4: Ectopic G5: Current Past medical history: Rheumatoid arthritis Medications: ASA, vitamin, Cimzia Surgeries: Diagnostic laparoscopy, right ovarian cystectomy, left salpingostomy for ectopic , cholecystectomy, D&C, wisdom teeth extraction, appendectomy Allergies: Zosyn, doxycycline, tramadol, vancomycin Social history: Denies smoking, alcohol use, drug use Family history: Denies history DVT or PE Review of systems: Besides above pertinent positives a full review of systems was performed and found to be negative Physical exam: Vital signs: Pulse 80 SPO2 98% on room air General: Normal-appearing no acute distress HEENT: Normocephalic atraumatic no cervical of adenopathy Cardiac/respiratory: No use of accessory muscles nonlabored breathing Abdomen: Soft, nontender, gravid Extremities: No peripheral edema normal peripheral pulses Psych: Normal affect normal demeanor nonpressured speech Labs: White blood cell count 9.3, hemoglobin 12.6, hematocrit 36.2%, platelets 223 Assessment and plan: 35-year-old G5, P2 at 30 weeks and 4 days for induction of labor for gestational hypertension Admit labor and delivery CEFM GBS negative Cytotec induction: Patient still declines AROM, understands medical risks with gestational hypertension and prolonged labor Gestational hypertension: Blood pressures nonsevere range we will continue to monitor
--- NOTE | 2021-05-17 16:43 | PCM.PN.OB ---
Subjective Subjective Feeling more uncomfortable with contractions Objective Data Objective Data Vital Signs: Vital Signs Temp Pulse BP Pulse Ox 98.4 F 56 L 138/69 H 100 05/17/21 16:09 05/17/21 16:09 05/17/21 16:09 05/17/21 11:56 Weight: 206 lb Body Mass Index (BMI) 31.3 Lab / Micro Data Result Diagrams: 05/17/21 07:35 Labs: Laboratory Results - last 24 hr 05/17/21 07:35: WBC 9.3, RBC 4.30, Hgb 12.6, Hct 36.2 L, MCV 84.2, MCH 29.3, MCHC 34.8, RDW Std Deviation 42.1, RDW Coeff of Keiko 13.7, Plt Count 223, MPV 10.5, Immature Gran % (Auto) 1.100 H, Neut % (Auto) 61.5, Lymph % (Auto) 27.4, [place] % (Auto) 4.9, Eos % (Auto) 4.5, Baso % (Auto) 0.6, Absolute Neuts (auto) 5.7, Absolute Lymphs (auto) 2.56, Nucleated RBC % 0 05/17/21 07:35: Blood Type B POSITIVE, Antibody Screen NEGATIVE Physical Exam Const alert, oriented x3, no apparent distress, average body habitus, healthy appearing and well nourished HEENT normocephalic and moist oral mucous membranes Head and Scalp: atraumatic Face and Sinus: normal facial exam Neck full ROM Resp normal respiratory effort, no retractions and no use of accessory muscles Psych mental status grossly normal, affect normal, speech normal and activity/motor behavior normal Assessment & Plan (1) : PLAN: Patient seen and examined. 4 cm. We will switch to Pitocin. Feeling more uncomfortable contractions, discussed epidural and nitro. Discussed AROM, at this time patient continues to want to hold on AROM.
[2021-05-17] MEDS: Lactated Ringers 500 ML 999 ML IV ×3 (16:53→20:12)
[2021-05-17] MEDS: Oxytocin 30 units/NS 500 ml 30 UNITS/500 ML IV.SOLN IV (18:19)
[2021-05-17] MEDS: Ondansetron 4 MG/2 ML Vial IV (19:24)
[2021-05-17] MEDS: 0.9% Saline Lock 10 ML Syringe IV (19:25)
[2021-05-17 19:39] LABS: ROM Internal Control Test YES-OK TO RESULT pt. (Internal QC); ROM Patient Test Negative (Negative)
[2021-05-17] MEDS: fentaNYL-bupivacaine (epidural) 100 ML BAG EPIDURAL (20:15)
[2021-05-17] MEDS: Lactated Ringers 1,000 ML 200 ML IV (22:20)
[2021-05-18] VITALS (51 sets, daily range): BP systolic 107–145; BP diastolic 54–88; PULSE 58–78; RESP 14–16; TEMP 36.3–37.1; O2SAT 90–99
[2021-05-18] MEDS: fentaNYL-bupivacaine (epidural) 100 ML BAG EPIDURAL (00:22)
[2021-05-18] MEDS: Ondansetron 4 MG/2 ML Vial IV (02:17)
[2021-05-18] MEDS: 0.9% Saline Lock 10 ML Syringe IV (02:17)
[2021-05-18] MEDS: Lactated Ringers 1,000 ML 200 ML IV (03:05)
[2021-05-18] MEDS: Oxytocin 30 units/NS 500 ml 30 UNITS/500 ML IV.SOLN 334 UNITS IV (06:09)
--- NOTE | 2021-05-18 06:17 | EX.PCM.OBRPT ---
Vaginal Delivery Findings Description of Procedure: Normal spontaneous vaginal delivery of a viable male , vertex. Head and shoulders delivered with ease. Cord cut and clamped. Baby handed off to patient and nursing. Placenta delivered via cord traction and fundal massage. No lacerations noted. EBL 300 cc Apgars 8/9
--- NOTE | 2021-05-18 17:25 | CASEMGMT ---
Addendum entered by Shadi Askew 05/18/21 20:20: Patient also reports she has her previous counselors contact information and contacts her about big life events.. but not this one because we were going to have the baby. Shadi CORDOVA Addendum entered by Shadi Askew 05/18/21 17:41: Patient reports no previous PPD. Shadi CORDOVA Original Note: SW Note: Informant: Patient and patient's chart, FOB SW met with patient. Patient gave verbal consent to speak to the patient in the presence of the FOB. 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 Baby: Patient said that they haven't fully decided on the nb's name but think it will be [place] : 05/18/21 Apgars: 8/9 Weight: 3775 grams Mold Design Engineer: [facility]. Patient said that it is going pretty good MOB's other children: Teenagers age 14 an 16 Housing: Patient reports she lives in a house with her children and the nb. Transportation: Patient reports she has access to transportation Supplies: Patient reports she has all supplies including bassinet, carseat and crib. Support: Patient said that her support is the FOB and her friends, who reside locally. Education Level: Patient reports that she graduated high school and had some college and technical schooling. Patient reports no learning issues. Employment: Patient is employed at [employer]. She reports she plans to take 8-12 weeks off work and then will see. Patient reports no JFS, WIC, HMG, Counseling, Legal and CSB involvement FOB: Teodoro Hawk Time Together: 4 years Involved at : Yes Employment: FOB is Floral Merchandiser at [employer] in [place]. He reports he is able to lithopone mill worker. FOB reports he hs 2 weeks of paternity leave. FOB MH/AOD and Domestic Violence: FOB denied Maternal MH History: Patient reports that she feels she has more anxiety than depression and stated that she takes on lots of things. Patient said I will have to do 30 things and then add 15 more things. FOB concurred that this is anxiety. Patient reports she saw a counselor 10 years ago for counseling. Patient was in counseling for 1 1/2 years (approximately) . Patient said that she has taken medication here and there Patient said that the counseling help with her anxiety but the psych medication was not helpful as it only dampened it. Patient completed PHq2 with score of 0. Patient denied any AOD use. SW educated patient on PPD, Shaken Baby Syndrome and Safe Sleeping Plan: Home at discharge Shadi CORDOVA
[2021-05-19] VITALS (8 sets, daily range): BP systolic 110–126; BP diastolic 58–61; PULSE 66–76; RESP 16; TEMP 36.6–36.8; O2SAT 96–97
--- NOTE | 2021-05-19 09:25 | PCM.DC.BLA ---
Discharge Summary Date of Admission: 05/17/21 Date of Discharge: 05/19/21 Summary: Patient arrived on 05/17/2021 for induction of labor for gestational hypertension. Induction proceeded spontaneous vaginal delivery occurred on 05/18/2021. Routine recovery. Blood pressures well controlled during admission. Discharge home on 05/19/2021 Meaningful Use Info Meaningful Use Diagnoses (Choose all that apply): None applicable Discharge Plan Admission Admit Date/Time: 05/17/21 07:10 Primary Reason for Your Visit: Induction of labor Attending Provider: Phillip Holder Primary Care Provider: Nash Dc Instructions Additional Instructions / Restrictions: Regular diet, weightbearing as tolerated, no intercourse for 4 to 6 weeks. Call if fevers, chills, chest pain, shortness of breath. Follow-up 1 week blood pressure check, 2-week telehealth, 4 to 6 weeks Discharge Orders/Prescriptions Prescriptions: No Action cholecalciferol (vitamin D3) 50 mcg (2,000 unit) capsule 1,000 unit PO DAILY RF: 0 magnesium 250 mg tablet 500 mg PO DAILY RF: 0 ondansetron HCl [Zofran] 4 mg tablet 4 mg PO Q8H PRN (Reason: nausea and vomiting) Qty: 14 RF: 0 albuterol sulfate 1 INHALER inhaler 90 mcg INHALATION Q6H PRN PRN (Reason: Wheezing) RF: 0 certolizumab pegol 400 MG/2 ML syringe kit 400 mg SQ .Q2WEEK RF: 0 vit,[id number] 1 TABLET tablet 1 tablet PO DAILY RF: 0 aspirin 81 mg Capsule 81 mg PO DAILY RF: 0 Referrals / Follow Up: Nash Dc MD [Primary Care Provider] - Disposition Disposition (needs filled in before D/C Order can be placed): Home, Self Care
--- NOTE | 2021-05-19 09:27 | PCM.PN.OB ---
Subjective Subjective No overnight complaints Objective Data Objective Data Vital Signs: Vital Signs Temp Pulse Resp BP Pulse Ox 97.9 F 73 16 122/61 H 96 05/19/21 08:59 05/19/21 09:01 05/19/21 08:59 05/19/21 09:00 05/19/21 09:01 Oxygen Delivery Method Room Air Weight: 206 lb Body Mass Index (BMI) 31.3 Intake & Output: Intake and Output for Last 24 Hours 05/17/21 05/18/21 05/19/21 23:59 23:59 23:59 Intake Total 4825.14 / 4825.14 2086.13 / 2086.13 Output Total 1200 / 1200 1400 / 1400 Balance 3625.14 / 3625.14 686.13 / 686.13 Lab / Micro Data Result Diagrams: 05/17/21 07:35 Physical Exam Const alert, oriented x3, no apparent distress and average body habitus HEENT normocephalic and moist oral mucous membranes Head and Scalp: atraumatic Face and Sinus: normal facial exam Resp normal respiratory effort, no retractions and no use of accessory muscles GI GI Narrative: Soft, nontender, uterus firm and below umbilicus Extremity normal to inspection, full ROM and no clubbing, cyanosis or edema Psych mental status grossly normal, affect normal, speech normal and activity/motor behavior normal Assessment & Plan (1) : PLAN: day 1. Breast-feeding. Pain well controlled. Okay to discharge home, to take blood pressures at home discussed parameters.
== END 2021-05-19 15:40 | disposition home or self-care (01) | DRG 807 ==
PROVIDERS: Admitting Provider Obstetrics & Gynecology; PCP Family Medicine; Referring Provider Obstetrics & Gynecology; Visit Provider Obstetrics & Gynecology
DX: O13.4 Gestational [pregnancy-induced] hypertension without significant proteinuria, complicating childbirth (principal); Z37.0 Single live birth; Z3A.38 38 weeks gestation of pregnancy
CPT/HCPCS: 59025; 59050; 84112; 85025; 86850; 86900; 86901; 99218; J7120; A4216; G0378; J2405

== ENCOUNTER 2021-05-23 13:39 | Outpatient (CLI) | payer OTHER, SELFPAY ==
[2021-05-23 14:39] LABS: Hematocrit 41.9 % (37-47); Hemoglobin 14.5 g/dL (12.0-15.0); Mean Corp Hgb Conc 34.6 g/dL (32-36); Mean Corpuscular Volume 86.6 fL (81-99); Mean Platelet Vol. 9.7 fl (6.2-12.0); Platelet Count 324 K/mm3 (150-450); RBC Distribution Width CV 13.8 % (11.6-14.6); RBC Distribution Width SD 43.5 fl (35.1-43.9); Red Blood Count 4.84 M/mm3 (4.2-5.4); White Blood Count 8.9 K/mm3 (4.4-11.0)
[2021-05-23 14:54] LABS: ALB/GLOB Ratio 0.7 RATIO (0.9-2.4); AST(SGOT) 25 U/L (15-37); Alanine Aminotransfer ALT/SGPT 41 U/L (13-56); Alkaline Phosphatase 136 U/L (45-117); Anion Gap 8 (5-15); BUN 14 mg/dL (7-18); Calcium,Total 9.3 mg/dL (8.5-10.1); Chloride 109 mmol/L (98-107); Creatinine, Serum 0.78 mg/dL (0.55-1.02); EST Glomerular Filtration Rate 89 mL/min (>60); Est Glom Filt Rate - Afr Amer 108 mL/min (>60); Globulin 4.6 g/dL (2.2-4.2); Glucose 120 mg/dL (74-106); LDH 229 U/L (84-246); Protein, Total 7.6 g/dL (6.4-8.2); Sodium Level 138 mmol/L (136-145)
== END 2021-05-23 23:59 | disposition home or self-care (01) ==
LOC: WOBLAB 13:39
PROVIDERS: PCP Family Medicine; Visit Provider Obstetrics & Gynecology
DX: R51.9 Headache, unspecified (principal)
CPT/HCPCS: 36415; 80053; 83615; 85027

== ENCOUNTER → 2021-06-11 | Outpatient (CLI) | payer OTHER, SELFPAY ==
[2021-06-11 15:38] LABS: Hematocrit 42.7 % (37-47); Hemoglobin 14.3 g/dL (12.0-15.0); Mean Corp Hgb Conc 33.5 g/dL (32-36); Mean Corpuscular Hgb 28.8 pg (27.0-32.0); Mean Corpuscular Volume 85.9 fL (81-99); Mean Platelet Vol. 9.9 fl (6.2-12.0); Platelet Count 242 K/mm3 (150-450); RBC Distribution Width CV 13.3 % (11.6-14.6); RBC Distribution Width SD 41.7 fl (35.1-43.9); Red Blood Count 4.97 M/mm3 (4.2-5.4); White Blood Count 6.8 K/mm3 (4.4-11.0)
[2021-06-11 15:52] LABS: ALB/GLOB Ratio 0.8 RATIO (0.9-2.4); AST(SGOT) 24 U/L (15-37); Alanine Aminotransfer ALT/SGPT 40 U/L (13-56); Albumin, Serum 3.3 g/dL (3.2-5.0); Alkaline Phosphatase 98 U/L (45-117); Amylase 52 U/L (25-115); Anion Gap 5 (5-15); BUN 16 mg/dL (7-18); BUN/Creat Ratio 21.3 RATIO (10-20); Calcium,Total 8.8 mg/dL (8.5-10.1); Chloride 113 mmol/L (98-107); Creatinine, Serum 0.75 mg/dL (0.55-1.02); EST Glomerular Filtration Rate 93 mL/min (>60); Est Glom Filt Rate - Afr Amer 112 mL/min (>60); Globulin 3.9 g/dL (2.2-4.2); Glucose 91 mg/dL (74-106); Lipase 317 U/L (73-393); Potassium 4.3 mmol/L (3.5-5.1); Protein, Total 7.2 g/dL (6.4-8.2); Sodium Level 142 mmol/L (136-145)
== END | disposition home or self-care (01) ==
PROVIDERS: PCP Family Medicine; Referring Provider Family Medicine; Visit Provider Registered Nurse
DX: R10.11 Right upper quadrant pain (principal); R11.0 Nausea
CPT/HCPCS: 36415; 80053; 82150; 83690; 85027

== ENCOUNTER → 2021-06-14 | Outpatient (CLI) | payer OTHER, SELFPAY ==
--- NOTE | 2021-06-14 10:00 | US_ITS ---
STUDY: ABDOMINAL ULTRASOUND - RIGHT UPPER QUADRANT REASON FOR VISIT: Female, 35 years old right upper abdominal quadrant pain, nausea TECHNIQUE: Ultrasound evaluation of the right upper quadrant was performed with real-time and static carranza-scale imaging. TECHNICAL QUALITY: Adequate. COMPARISON: Comparison is made with prior study dated 07/29/2019. FINDINGS: Liver: The liver is enlarged and measures 19.9 cm. There is normal echogenicity of the liver. The bile ducts are within normal limits. There is hepatic color flow. The direction of portal flow is hepatopetal. There is a 1.7 cm x 2.1 cm x 2.6 cm echogenic nodule in the superior aspect of the right lobe of liver suggestive of an hemangioma. This is essentially unchanged. Gallbladder: The patient is status post cholecystectomy. Common Bile Duct (C.B.D.): The common bile duct measures 4. mm. Pancreas: Normal size of the head, body and tail of the pancreas. There is normal echogenicity of the pancreas. There is no demonstrated pancreatic mass or cyst. Right Kidney: Normal size of the right kidney. The right kidney measures 10.6 cm x 6.2 cm x 4.5 cm. Normal renal cortex. The right cortex measures 1.0 cm. There is no demonstrated renal mass or cyst. There is no right hydronephrosis. US/Abdomen Limited IMPRESSION: Hepatomegaly. Stable hemangioma in the right lobe of the liver superiorly. Electronically Signed: Ladarius Mensah MD at 10:57 EDT ,
== END | disposition home or self-care (01) ==
LOC: US 09:58
PROVIDERS: PCP Family Medicine; Referring Provider Registered Nurse; Visit Provider Registered Nurse
DX: R10.11 Right upper quadrant pain (principal)
CPT/HCPCS: 76705

== ENCOUNTER → 2021-10-25 | Outpatient (CLI) | payer OTHER, SELFPAY ==
[2021-10-25 15:25] LABS: Absolute Lymphocyte Count 2.58 X10^3/uL (0.83-4.51); Absolute Neutrophil Count 3.3 X10^3/uL (2.0-7.7); Basophil# 0.04 X10^3/uL; Basophil% 0.6 % (0-1); Eosinophil# 0.41 X10^3/uL; Eosinophils% 6.1 % (0-5); Hematocrit 42.4 % (37-47); Lymphocyte # 2.58 X10^3/ul (0.83-4.51); Lymphocyte % 38.2 % (19-41); Mean Corpuscular Hgb 28.5 pg (27.0-32.0); Mean Corpuscular Volume 86.4 fL (81-99); Mean Platelet Vol. 10.7 fl (6.2-12.0); Monocyte% 5.9 % (0-10); NRBC Flagged by Analyzer 0 % (0-5); Neutrophil # 3.31 X10^3/uL (2.7-7.7); Neutrophil % 48.9 % (47-70); Platelet Count 196 K/mm3 (150-450); RBC Distribution Width CV 13.2 % (11.6-14.6); RBC Distribution Width SD 41.1 fl (35.1-43.9); Red Blood Count 4.91 M/mm3 (4.2-5.4); White Blood Count 6.8 K/mm3 (4.4-11.0)
[2021-10-25 15:50] LABS: Vitamin B12 438 pg/mL (211-911)
[2021-10-25 16:13] LABS: AST(SGOT) 15 U/L (15-37); Alanine Aminotransfer ALT/SGPT 24 U/L (13-56); Albumin, Serum 3.8 g/dL (3.2-5.0); Alkaline Phosphatase 72 U/L (45-117); Anion Gap 6 (5-15); BUN 12 mg/dL (7-18); BUN/Creat Ratio 18.8 RATIO (10-20); Calcium,Total 9.2 mg/dL (8.5-10.1); Chloride 107 mmol/L (98-107); Cholesterol 152 mg/dL (200); Creatinine, Serum 0.64 mg/dL (0.55-1.02); EST Glomerular Filtration Rate 111 mL/min (>60); Est Glom Filt Rate - Afr Amer 135 mL/min (>60); Globulin 3.8 g/dL (2.2-4.2); Glucose 80 mg/dL (74-106); High Density Lipoprotein 83 mg/dL; Potassium 4.4 mmol/L (3.5-5.1); Protein, Total 7.6 g/dL (6.4-8.2); Sodium Level 138 mmol/L (136-145); T4 Free Direct 1.25 ng/dL (0.76-1.46); Thyroid Stim Hormone (TSH) 1.51 uIU/mL (0.358-3.74); Triglycerides 33 mg/dL; Very Low Density Lipoprotein 7 mg/dL (5-40)
[2021-10-30 12:23] LABS: Vitamin D 1,25-Dihydroxy 60.5 pg/mL (24.8-81.5)
== END | disposition home or self-care (01) ==
PROVIDERS: PCP Family Medicine; Referring Provider Family Medicine; Visit Provider Nurse Practitioner Family
DX: R53.83 Other fatigue (principal); Z13.1 Encounter for screening for diabetes mellitus; Z13.220 Encounter for screening for lipoid disorders
CPT/HCPCS: 36415; 80053; 80061; 82607; 82652; 84439; 84443; 85025

== ENCOUNTER → 2021-11-21 | Outpatient (CLI) | payer OTHER, SELFPAY ==
--- NOTE | 2021-11-21 16:45 | RAD_ITS ---
STUDY: X-RAY CHEST REASON FOR EXAM: Female, 35 years old. R06.00 TECHNIQUE: PA and lateral views of the chest. COMPARISON: 12/01/2020. FINDINGS: The lungs are clear and expanded. There is no demonstrated pleural abnormality. Normal size heart. Normal mediastinum and jeo. Normal visualized pulmonary arteries. Normal visualized aortic arch and descending thoracic aorta. Normal visualized thoracic spine. Normal visualized ribs, clavicles, and shoulders. There is no demonstrated abnormality of the visualized soft tissue structures of the upper abdomen. RAD/Chest PA and Lateral IMPRESSION: Normal x-ray examination of the chest. Electronically Signed: Marixa Bradford MD at 17:01 EDT Reading Location ID and State: [id number] / Tel , Service support ,
[2021-11-21 17:25] LABS: Absolute Lymphocyte Count 2.91 X10^3/uL (0.83-4.51); Absolute Neutrophil Count 6.5 X10^3/uL (2.0-7.7); Basophil# 0.06 X10^3/uL; Basophil% 0.6 % (0-1); Eosinophil# 0.32 X10^3/uL; Eosinophils% 3.1 % (0-5); Hematocrit 41.4 % (37-47); Hemoglobin 13.9 g/dL (12.0-15.0); Lymphocyte # 2.91 X10^3/ul (0.83-4.51); Lymphocyte % 27.9 % (19-41); Mean Corp Hgb Conc 33.6 g/dL (32-36); Mean Corpuscular Hgb 28.7 pg (27.0-32.0); Mean Corpuscular Volume 85.4 fL (81-99); Mean Platelet Vol. 9.9 fl (6.2-12.0); Monocyte# 0.61 X10^3/uL; Monocyte% 5.8 % (0-10); NRBC Flagged by Analyzer 0 % (0-5); Neutrophil % 62.2 % (47-70); Platelet Count 217 K/mm3 (150-450); RBC Distribution Width CV 13.2 % (11.6-14.6); RBC Distribution Width SD 40.7 fl (35.1-43.9); Red Blood Count 4.85 M/mm3 (4.2-5.4); White Blood Count 10.4 K/mm3 (4.4-11.0)
[2021-11-21 17:31] LABS: Erythrocyte Sedimentation Rate 3 mm/hr (0-30)
[2021-11-21 17:35] LABS: D-Dimer Quantitative (DVT/PE) 0.37 FEU/ug/m (0.27-0.49)
[2021-11-21 17:48] LABS: BNP,B-Type NATRIURETIC PEPTIDE 18.7 pg/mL (0-100)
[2021-11-21 17:49] LABS: Anion Gap 7 (5-15); BUN 17 mg/dL (7-18); BUN/Creat Ratio 28.6 RATIO (10-20); Calcium,Total 9.2 mg/dL (8.5-10.1); Chloride 111 mmol/L (98-107); EST Glomerular Filtration Rate 121 mL/min (>60); Est Glom Filt Rate - Afr Amer 146 mL/min (>60); Glucose 87 mg/dL (74-106); Potassium 3.8 mmol/L (3.5-5.1); Sodium Level 141 mmol/L (136-145)
[2021-11-21 19:13] LABS: CRP < 2.90 mg/L (0.0-3.0)
== END | disposition home or self-care (01) ==
PROVIDERS: Nurse Practitioner Gerontology; PCP Family Medicine; Referring Provider Internal Medicine Pulmonary Disease; Visit Provider Internal Medicine Pulmonary Disease
DX: R06.00 Dyspnea, unspecified (principal); R07.9 Chest pain, unspecified
CPT/HCPCS: 36415; 71046; 80048; 83880; 85025; 85379; 85652; 86140

== ENCOUNTER → 2021-11-25 | Outpatient (CLI) | payer OTHER, SELFPAY ==
--- NOTE | 2021-11-25 08:59 | ECHOD_ITS ---
Version 2 Reason For Study: DYSPNEA Procedure This was a 2D Doppler, Color Flow transthoracic echocardiogram. Exam performed in department. Left Ventricle Normal LV size. Left ventricular systolic function is normal. The estimated ejection fraction is 55 %. No regional wall motion abnormalities noted. Right Ventricle Normal RV size. Normal systolic function. Atria Normal left atrium. Normal right atrium. Mitral Valve Normal mitral valve. Tricuspid Valve Normal tricuspid valve. Mild tricuspid valve insufficiency. Pulmonary artery systolic pressure is 20 mmHg. Aortic Valve Normal aortic valve. Trisinus/trileaflet aortic valve. Pulmonic Valve Normal pulmonic valve. Great Vessels Normal aortic root. The pulmonary artery is normal size. Normal inferior vena cava. Pericardium/Pleural No pericardial effusion. MMode/2D Measurements & Calculations LVIDd: 4.7 cm IVSd: 0.72 cm Ao root diam: 2.6 cm LVIDs: 3.6 cm LVPWd: 0.84 cm RVDd: 3.3 cm FS: 23.3 % LAV(MOD-sp4): 32.8 ml LVAd ap4: 30.4 cm2 SV(MOD-sp4): 51.6 ml LVLd ap4: 8.3 cm EDV(MOD-sp4): 90.4 ml EDV(sp4-el): 94.1 ml LVAs ap4: 17.3 cm2 LVLs ap4: 6.4 cm ESV(MOD-sp4): 38.8 ml ESV(sp4-el): 39.9 ml EF(MOD-sp4): 57.1 % EF(sp4-el): 57.6 % SV(sp4-el): 54.2 ml LA A4 area: 15.6 cm2 LA dimension(2D): 3.0 cm RA A4 area: 14.3 cm2 Time Measurements MV dec time: 0.19 sec Doppler Measurements & Calculations MV E max davie: 75.5 cm/sec Lat Peak E' Davie: 13.3 cm/sec Med Peak E' Davie: 10.8 cm/sec MV A max davie: 62.8 cm/sec E/E' lat: 5.7 E/E' med: 7.0 MV E/A: 1.2 MV V2 max: 87.8 cm/sec Ao V2 max: 152.4 cm/sec MV max P.1 mmHg MV dec slope: 399.4 cm/sec2 Ao max P.3 mmHg MV V2 mean: 53.9 cm/sec Ao V2 mean: 103.9 cm/sec MV mean P.3 mmHg Ao mean P.0 mmHg MV V2 VTI: 33.5 cm Ao V2 VTI: 31.9 cm LV V1 max: 112.5 cm/sec PA V2 max: 72.7 cm/sec TR max davie: 205.2 cm/sec LV V1 max P.1 mmHg PA V2 mean: 56.5 cm/sec TR max P.9 mmHg LV V1 mean P.7 mmHg LV V1 mean: 75.9 cm/sec LV V1 VTI: 23.4 cm ECHO/Echo Complete Interpretation Summary Normal LV size. Left ventricular systolic function is normal. The estimated ejection fraction is 55 %. Pulmonary artery systolic pressure is 20 mmHg. Structurally normal valves. Ordering Physician: Ness Boland Referring Physician: Ness Boland Performed By: Marilyn Viramontes RCS
== END | disposition home or self-care (01) ==
LOC: CVS 08:58
PROVIDERS: PCP Family Medicine; Referring Provider Nurse Practitioner Gerontology; Visit Provider Nurse Practitioner Gerontology
DX: R06.00 Dyspnea, unspecified (principal); R06.02 Shortness of breath
CPT/HCPCS: 93306

== ENCOUNTER → 2022-01-02 | Outpatient (CLI) | payer OTHER, SELFPAY ==
[2022-01-10 11:29] LABS: HPV APTIMA, High Risk Negative (Negative)
== END | disposition home or self-care (01) ==
LOC: LABSPEC 11:14
PROVIDERS: PCP Family Medicine; Visit Provider Obstetrics & Gynecology
DX: Z12.4 Encounter for screening for malignant neoplasm of cervix (principal)
CPT/HCPCS: 87624; 88175; G0145

== ENCOUNTER → 2022-03-26 | Outpatient (CLI) | payer OTHER, SELFPAY ==
[2022-03-26 09:48] LABS: hCG Titer Quant., Serum < 1 mIU/mL (1-3)
== END | disposition home or self-care (01) ==
LOC: WOBLAB 08:37
PROVIDERS: PCP Family Medicine; Visit Provider Student in an Organized Health Care Education/Training Program
DX: N91.2 Amenorrhea, unspecified (principal)
CPT/HCPCS: 36415; 84702

== ENCOUNTER → 2022-04-11 | Outpatient (CLI) | payer OTHER, SELFPAY ==
[2022-04-11 10:57] LABS: Vitamin B12 430 pg/mL (211-911); Vitamin D,25 Hydroxy 23.2 ng/mL
[2022-04-11 11:04] LABS: ALB/GLOB Ratio 0.9 RATIO (0.9-2.4); AST(SGOT) 16 U/L (15-37); Alanine Aminotransfer ALT/SGPT 20 U/L (13-56); Albumin, Serum 3.6 g/dL (3.2-5.0); Alkaline Phosphatase 81 U/L (45-117); Anion Gap 5 (5-15); BUN 17 mg/dL (7-18); BUN/Creat Ratio 27.3 RATIO (10-20); Calcium,Total 8.8 mg/dL (8.5-10.1); Chloride 108 mmol/L (98-107); Creatinine, Serum 0.62 mg/dL (0.55-1.02); EST Glomerular Filtration Rate 115 mL/min (>60); Est Glom Filt Rate - Afr Amer 139 mL/min (>60); Globulin 3.9 g/dL (2.2-4.2); Glucose 88 mg/dL (74-106); Potassium 4.1 mmol/L (3.5-5.1); Protein, Total 7.5 g/dL (6.4-8.2); Sodium Level 137 mmol/L (136-145)
== END | disposition home or self-care (01) ==
LOC: MFPLAB 09:16
PROVIDERS: PCP Family Medicine; Referring Provider Family Medicine; Visit Provider Family Medicine
DX: E55.9 Vitamin D deficiency, unspecified (principal); E53.8 Deficiency of other specified B group vitamins
CPT/HCPCS: 36415; 80053; 82306; 82607; 82746

== ENCOUNTER → 2022-04-18 | Outpatient (CLI) | payer OTHER, SELFPAY ==
[2022-04-18 07:38] LABS: Red Blood Cells-Urine 0 SEEN /hpf (0-5); White Blood Cells 0 SEEN /hpf (0-5)
[2022-04-18 10:23] LABS: Color, Urine Yellow (Yellow); Glucose, Dipstick Normal (Normal); Ketone-Dipstick 15 mg/dl (Negative); Leukocyte Esterase-Dipstick Negative /ul (Negative); Nitrite-Dipstick Negative (Negative); Occult Blood-Urine Negative /ul (Negative); Protein-Dipstick 15 mg/dl (Negative); Urine Bilirubin Dipstick Negative (Negative); Urine Clarity Sl. Cloudy (Clear); Urine Urobilinogen Normal (Normal)
[2022-04-18 10:40] LABS: Bacteria 1+ /hpf (None Seen); Mucous, Urine 1+ /hpf (<or=2+); Squamous Epithelial Cells - UA 0-5 SEEN /hpf (5-10)
== END | disposition home or self-care (01) ==
PROVIDERS: PCP Family Medicine; Referring Provider Internal Medicine Rheumatology; Visit Provider Internal Medicine Rheumatology
DX: R82.90 Unspecified abnormal findings in urine (principal)
CPT/HCPCS: 81001

== ENCOUNTER → 2022-05-16 | Outpatient (CLI) | payer OTHER, SELFPAY ==
--- NOTE | 2022-05-16 08:40 | BI_ITS ---
MAMMOGRAPHY - BILATERAL DIAGNOSTIC REASON FOR EXAM: Female, 36 years old. Left axillary breast pain for 6 weeks. The patient is currently breast-feeding. PERTINENT HISTORY: Non-contributory. TECHNIQUE: Digital bilateral breast alber (3D mammographic acquisition) in the CC and MLO projections. 2-D mediolateral oblique (MLO) and craniocaudad (CC) views of both breasts were obtained. CAD: Full Field Digital Mammography with Computer Added Detection was performed. COMPARISON: Comparison is made with prior study dated November 05, 2017. FINDINGS: Breast Composition: The breasts are extremely dense, which lowers the sensitivity of mammography. There are no dominant masses or suspicious calcifications. No other significant abnormalities are identified. There has been no significant change since the prior study. BI/DIAG MAMM W/CAD, BILAT IMPRESSION: Stable bilateral diagnostic mammogram. With the patient''s history of left breast pain, targeted ultrasound correlation is recommended. ASSESSMENT CATEGORY: BIRADS Category 0: Incomplete. Need additional imaging evaluation. A letter regarding these results will be sent to the patient by the facility within 30 days. Approximately 10% of breast cancers are not detected by mammography. A normal mammogram should not delay biopsy of a clinically suspicious abnormality. Electronically Signed: Ladarius Mensah MD at 10:18 EDT ,
--- NOTE | 2022-05-16 08:41 | US_ITS ---
STUDY: ULTRASOUND BREAST - LEFT REASON FOR EXAM: Female, 36 years old. Left axillary pain. The patient is presently breast-feeding. TECHNIQUE: Axial and longitudinal images of the LEFT breast were performed with a high resolution ultrasound transducer. # OF IMAGES: 40 COMPARISON: Comparison is made with prior mammograms in earlier in the day. FINDINGS: LEFT Breast: The axillary region of the breast was examined with ultrasound. There is a 2.1 cm x 2.3 cm x 1.2 cm hypoechoic slightly lobular nodule with central hyperechoic hilum with increased vascularity. This may represent enlarged benign appearing lymph node. Follow-up is recommended in 3 months. . US/Breast Limited Unilateral IMPRESSION: 2.1 cm x 2.3 cm x 1.2 cm hypoechoic nodule with central hyperechoic hilum suggestive of a benign lymph node. 3 month sonographic follow-up is recommended. ASSESSMENT CATEGORY: BIRADS Category 3: Probably Benign - Short-Interval Follow-up Suggested. A letter regarding these results will be sent to the patient by the facility within 30 days. Electronically Signed: Ladarius Mensah MD at 14:57 EDT ,
== END | disposition home or self-care (01) ==
PROVIDERS: PCP Family Medicine; Visit Provider Nurse Practitioner Women's Health
DX: Z12.31 Encounter for screening mammogram for malignant neoplasm of breast (principal); R92.8 Other abnormal and inconclusive findings on diagnostic imaging of breast; N64.4 Mastodynia
CPT/HCPCS: 76642; 77062; 77066; G0279

== ENCOUNTER → 2022-07-25 | Outpatient (CLI) | payer OTHER, SELFPAY ==
[2022-07-25 09:09] LABS: Absolute Lymphocyte Count 1.85 X10^3/uL (0.83-4.51); Absolute Neutrophil Count 2.6 X10^3/uL (2.0-7.7); Basophil# 0.04 X10^3/uL; Basophil% 0.8 % (0-1); Eosinophil# 0.25 X10^3/uL; Eosinophils% 4.9 % (0-5); Hematocrit 43.9 % (37-47); Hemoglobin 14.7 g/dL (12.0-15.0); Lymphocyte # 1.85 X10^3/ul (0.83-4.51); Lymphocyte % 36.5 % (19-41); Mean Corp Hgb Conc 33.5 g/dL (32-36); Mean Corpuscular Hgb 28.7 pg (27.0-32.0); Mean Corpuscular Volume 85.6 fL (81-99); Mean Platelet Vol. 9.4 fl (6.2-12.0); Monocyte# 0.36 X10^3/uL; Monocyte% 7.1 % (0-10); NRBC Flagged by Analyzer 0 % (0-5); Neutrophil # 2.56 X10^3/uL (2.7-7.7); Neutrophil % 50.5 % (47-70); Platelet Count 234 K/mm3 (150-450); RBC Distribution Width CV 13.2 % (11.6-14.6); RBC Distribution Width SD 41.5 fl (35.1-43.9); Red Blood Count 5.13 M/mm3 (4.2-5.4); White Blood Count 5.1 K/mm3 (4.4-11.0)
[2022-07-25 09:12] LABS: Erythrocyte Sedimentation Rate 4 mm/hr (0-30)
[2022-07-25 09:16] LABS: Prothrombin Time (Protime)PT. 13.5 SECONDS (11.7-14.9)
[2022-07-25 09:43] LABS: ALB/GLOB Ratio 1.1 RATIO (0.9-2.4); AST(SGOT) 12 U/L (15-37); Alanine Aminotransfer ALT/SGPT 15 U/L (13-56); Alkaline Phosphatase 61 U/L (45-117); Anion Gap 8 (5-15); BUN 9 mg/dL (7-18); BUN/Creat Ratio 13.8 RATIO (10-20); CRP < 2.90 mg/L (0.0-3.0); Calcium,Total 8.7 mg/dL (8.5-10.1); Chloride 110 mmol/L (98-107); Creatinine, Serum 0.65 mg/dL (0.55-1.02); EST Glomerular Filtration Rate 109 mL/min (>60); Est Glom Filt Rate - Afr Amer 132 mL/min (>60); Ferritin 25 ng/mL (8-252); Globulin 3.7 g/dL (2.2-4.2); Glucose 94 mg/dL (74-106); Hemoglobin A1c 4.9 % (3.8-5.6); LDH 139 U/L (84-246); Potassium 3.9 mmol/L (3.5-5.1); Protein, Total 7.7 g/dL (6.4-8.2); Sodium Level 142 mmol/L (136-145)
[2022-07-25 10:06] LABS: HIV - WCH Non-Reactive (Nonreactive)
[2022-07-28 14:09] LABS: Anti-Centromere B Ab <0.2 AI (0.0-0.9); Anti-Chromatin <0.2 AI (0.0-0.9); Anti-Jo <0.2 AI (0.0-0.9); Anti-Mitochondrial AB <20.0 Units (0.0-20.0); Anti-Scleroderma-70 AB <0.2 AI (0.0-0.9); Anti-dsDNA Ab 5 IU/mL (0-9); RNP Ab 0.2 AI (0.0-0.9); SJOGREN'S Anti-SS-A test < 0.2 AI (0.0-0.9); SJOGREN'S Anti-SS-B test < 0.2 AI (0.0-0.9); Smith Ab <0.2 AI (0.0-0.9)
[2022-07-30 00:07] LABS: AFP, Tumor Marker 2.4 ng/mL (0.0-6.4); Angiotensin Convert Enzyme 34 U/L (14-82); Anti-Smooth Muscle ABS 13 Units (0-19); Ceruloplasmin 26.4 mg/dL (19.0-39.0); Copper, Serum or Plasma 106 ug/dL (80-158); Cytoplasmic Ab (C-ANCA) <1:20 titer (Neg:<1:20); HEPATITIS B SURFACE AG Negative (Negative); Haptoglobin 96 mg/dL (33-278); Hep C Antibodies Non Reactive (Non Reactive); Hepatitis A IgM Antibody Negative (Negative); Hepatitis B Core AB IgM Negative (Negative); Perinuclear Ab (P-ANCA) <1:20 titer (Neg:<1:20)
== END | disposition home or self-care (01) ==
LOC: LAB 08:45
PROVIDERS: PCP Family Medicine; Referring Provider Internal Medicine Gastroenterology; Visit Provider Internal Medicine Gastroenterology
DX: R16.0 Hepatomegaly, not elsewhere classified (principal); K59.00 Constipation, unspecified
CPT/HCPCS: 36415; 80053; 80074; 82105; 82140; 82164; 82390; 82525; 82728; 83010; 83036; 83516; 83615; 85025; 85610; 85652; 86140; 86225; 86235; 86256; 86703

== ENCOUNTER → 2022-08-15 | Outpatient (CLI) | payer OTHER, SELFPAY ==
--- NOTE | 2022-08-15 08:02 | US_ITS ---
STUDY: ABDOMINAL ULTRASOUND - ELASTOGRAPHY REASON FOR VISIT: Female, 36 years old. Hepatomegaly. TECHNIQUE: Liver stiffness measurements were obtained on a Renrendai RS 85 ultrasound machine using a CA 1-7 probe following the SRU guidelines. 3 measurements were obtained using a 2-D-SWE method. TheIQR/M was 23 % suggesting a quality data set. TECHNICAL QUALITY: Adequate. COMPARISON: Comparison is made with prior study dated June 14, 2021. FINDINGS: Liver: There is no demonstrated mass lesion. Median liver stiffness measured 4.4 kPa. Abdomen: There is no demonstrated mass lesion. US/Elastography Parenchyma/Organ IMPRESSION: Liver stiffness measures 4.4 kPa compatible with FO (Normal) Metavir score. Electronically Signed: Ladarius Mensah MD at 13:32 EDT ,
--- NOTE | 2022-08-15 08:02 | US_ITS ---
STUDY: ABDOMINAL ULTRASOUND - RIGHT UPPER QUADRANT REASON FOR VISIT: Female, 36 years old . Hepatomegaly. TECHNIQUE: Ultrasound evaluation of the right upper quadrant was performed with real-time and static carranza-scale imaging. TECHNICAL QUALITY: Adequate. COMPARISON: Comparison is made with prior study dated June 14, 2021. FINDINGS: Liver: The liver liver is enlarged and measures 18.8 cm. There is normal echogenicity of the liver. The bile ducts are within normal limits. There is hepatic color flow. The direction of portal flow is hepatopetal. Stable 1.7 cm x 2.1 cm echogenic nodule in the superior aspect of the right lobe liver suggestive of a hemangioma. Gallbladder: The patient is status post cholecystectomy. Common Bile Duct (C.B.D.): The common bile duct measures 4 mm. Pancreas: Normal size of the head, body and tail of the pancreas. There is normal echogenicity of the pancreas. There is no demonstrated pancreatic mass or cyst. Right Kidney: Normal size of the right kidney. The right kidney measures 11.1 cm x 6.1 cm x 4.9 cm. Normal renal cortex. The right cortex measures 2.1 cm. There is no demonstrated renal mass or cyst. There is no right hydronephrosis. US/Abdomen Limited IMPRESSION: Hepatomegaly. Stable hemangioma in the right lobe of the liver. Electronically Signed: Ladarius Mensah MD at 13:31 EDT ,
--- NOTE | 2022-08-15 08:07 | US_ITS ---
STUDY: ULTRASOUND BREAST - LEFT REASON FOR EXAM: Female, 36 years old. 3 month follow-up examination. TECHNIQUE: Axial and longitudinal images of the LEFT breast were performed with a high resolution ultrasound transducer. # OF IMAGES: 32 COMPARISON: Comparison is made with prior study May 16, 2022. FINDINGS: LEFT Breast: The upper outer quadrant of the left breast was examined with ultrasound. Stable 1.7 cm x 2.5 cm x 0.8 cm benign-appearing axillary lymph node. Stable 8 mm x 9 mm x 6 mm cyst at the 12 clock position of the breast at 4 cm from nipple. There is a new palpable hypoechoic nodule measuring 6 mm x 7 mm x 5 mm at the 1:00 position breast at 4 cm from the nipple. This may represent a fibroadenoma. Biopsy recommended. US/Breast Limited Unilateral IMPRESSION: New palpable nodule at the 1:00 position breast at 4 cm from nipple measuring 6 mm x 7 mm x 5 mm. This most likely represents a fibroadenoma although biopsy is recommended. ASSESSMENT CATEGORY: BIRADS Category 4: Suspicious - Biopsy Should Be Considered. A letter regarding these results will be sent to the patient by the facility within 30 days. Electronically Signed: Ladarius Mensah MD at 13:35 EDT ,
== END | disposition home or self-care (01) ==
PROVIDERS: PCP Family Medicine; Referring Provider Nurse Practitioner Women's Health; Visit Provider Nurse Practitioner Women's Health
DX: N64.4 Mastodynia (principal)
CPT/HCPCS: 76642; 76705; 76981

== ENCOUNTER → 2022-08-29 | Outpatient (CLI) | payer OTHER, SELFPAY ==
--- NOTE | 2022-08-29 09:50 | BRBX_PTH ---
PATIENT: FANNY CELAYA LOC: [facility] U#:[id number] AGE/SX: 36/F ROOM: RE08/29/[address]: Dr. Carlos Euceda MD : [id number] BED: DIS: 08/29/2022 SPEC #: [id number] RECD: 08/29/22 11:30 STATUS: TIFFANIE [place] #: [id number] CHAVEZ: 08/29/22 09:[address]: Carlos Euceda DEPT: SURGICAL PATHOLOGY RECD BY: Chiqui Nava ENTERED: 08/29/22 11:53 SP TYPE: BREAST BX OTHR DR: Dr. Nash Dc MD Tissues: Left breast, NOS Procedures: Surgery Specimen Level IV HEADER OPERATION: Left breast biopsy PRE-OP DIAGNOSIS: Left breast biopsy TISSUE SUBMITTED: Left breast tissue MICROSCOPIC DIAGNOSIS Left breast, core biopsy: Consistent with lactational adenoma. Negative for atypia or malignancy. See comment. SJ:kristine 09/01/2022 COMMENT Correlation with clinical, radiologic findings and appropriate follow up are necessary. MICROSCOPIC DESCRIPTION Slides are reviewed. GROSS DESCRIPTION Received in fixative is one container labeled with the patient's name and designated left breast tissue. The specimen consists of multiple irregular and elongated pieces of castañeda tissue measuring in aggregate 2.0 x 0.5 x 0.1 cm. The specimen is totally submitted in one cassette. / AM 08/29/22. TC:1 CPT: 80690
== END | disposition home or self-care (01) ==
LOC: LABSPEC 11:35
PROVIDERS: PCP Family Medicine; Referring Provider Surgery; Visit Provider Surgery
DX: N63.20 Unspecified lump in the left breast, unspecified quadrant (principal)
CPT/HCPCS: 88305

== ENCOUNTER → 2023-01-29 | Outpatient (CLI) | payer OTHER, SELFPAY ==
--- NOTE | 2023-01-29 09:29 | US_ITS ---
STUDY: ULTRASOUND BREAST - LEFT REASON FOR EXAM: Female, 37 years old. Follow-up following left breast biopsy. TECHNIQUE: Axial and longitudinal images of the LEFT breast were performed with a high resolution ultrasound transducer. # OF IMAGES: 57 COMPARISON: Comparison is made with prior study dated August 15, 2022. FINDINGS: LEFT Breast: A tissue clip marker is seen at the 1:00 position of the breast at 4 cm from the nipple. No lesion is seen at that site. Stable irregular contour of a 2.9 cm x 2.6 x 1.2 cm left axillary lymph node. Stable 8 mm x 9 mm x 6 mm cyst at the 12:00 position of the breast at 4 cm from the nipple. US/Breast Limited Unilateral IMPRESSION: Status post biopsy at 25% of breast. A tissue clip marker is seen at that site. No nodule is seen. The remainder of the examination is unchanged. ASSESSMENT CATEGORY: BIRADS Category 2: Benign. A letter regarding these results will be sent to the patient by the facility within 30 days. Electronically Signed: Ladarius Mensah MD at 14:00 EST ,
== END | disposition home or self-care (01) ==
PROVIDERS: PCP Family Medicine; Referring Provider Surgery; Visit Provider Surgery
DX: Z98.890 Other specified postprocedural states (principal); N60.02 Solitary cyst of left breast
CPT/HCPCS: 76642

== ENCOUNTER → 2023-02-20 | Outpatient (CLI) | payer OTHER, SELFPAY ==
--- OUTSIDE RECORDS SUMMARY | 2023-02-20 16:21 | XMS RPT_ITS | CCD ---
Author Name Unknown Address [address] [place] [address] Organization [facility] Care Team Providers Care Primary Counselor Name Role Phone Gato Lujan Primary Care Provider ROCIO ESPINO N Attending Raudel Alexander Primary Care Unavailable PROVIDER, UNKNOWN Referring Unavailable Raudel Nowak Primary Care Unavailable Mario Bell Attending Unavailable PROVIDER, UNKNOWN Referring Unavailable Gato Lujan MD Primary Care Provider Gato Lujan Primary Care Provider [phone] Gato Lujan MD Primary Care Provider ROCIO ESPINO Referring Unavailable DANIE LOTT Attending Unavailable ANUJ CORNELIUS Referring Unavailable GATO LUJAN Primary Care Unavailable ROCIO ESPINO Attending AROLDO Zamora Referring Unavailable GATO LUJAN Primary Care Unavailable ASAAD, IMAD Referring Unavailable GATO LUJAN Primary Care Unavailable ANTONETTE CRUZ APRN, CNP Primary Care Phys ician BUSHRA GRAYSON MD Attending Unavailable ANTONETTE CRUZ APRN, CNP Primary Care U navailable Allergies Allergy Classification Reported Allergen(s) Allergy Type Date of Onset Reaction(s) Facility (6 sources) Amoxicillin; Translations: [AMOXICILLIN] Drug Allergy 7 Shortness of Breath [facility] (9 sources) Cephalexin; Translations: [CEPHALEXIN] Drug Allergy 2 Hives [facility] (9 sources) Doxycycline; Translations: [DOXYCYCLINE] Drug Allergy 6 Shortness of Breath, Nausea And Vomiting, Nausea and vomiting (disorder) [facility] (6 sources) Piperacillin; Translations: [PIPERACILLIN] Drug Allergy 7 Anaphylaxis, Anaphylactoid reaction (disorder) [facility] (6 sources) tazobactam; Translations: [TAZOBACTAM] Drug Allergy 7 Anaphylaxis [facility] (9 sources) traMADol; Translations: [TRAMADOL] Drug Allergy 6 Vomiting, Nausea And Vomiting, Rash [facility] (9 sources) Vancomycin; Translations: [VANCOMYCIN] Drug Allergy 7 Anaphylaxis, Facial swelling (finding) [facility] (2 sources) Bee pollen Drug Allergy 8 [employer] Work Phone: (3 sources) Penicillins Propensity to adverse reactions to drug 7 [facility] (2 sources) Piperacillin Sod-Tazobactam So Propensity to adverse reactions to drug 0 [employer] Work Phone: (1 source) Bee pollen Propensity to adverse reactions 8 [employer] (1 source) Piperacillin / tazobactam Drug Allergy 6 Anaphylaxis [facility] [employer] Medications Current Medications Medication Drug Class(es) Dates Sig (Normalized) Sig (Original) Acetaminophen (1 source) Start: 11-26-2021 acetaminophen (TYLENOL) tablet 650 mg albuterol MDI (90 mcg/inh) CFC free inhalation aerosol (1 source) Start: 11-02-2018 albuterol MDI (90 mcg/inh) CFC free inhalation aerosol See Instructions, # 8.5 inhaler, Refill #: 12 Total Refills: 12, TAKE 2 PUFFS BY MOUTH EVERY 4 HOURS NEEDED, [facility]/pharmacy #[id number] Start Date: 11/02/18 Status: Ordered aspirin 81 mg chewable tablet (1 source) Platelet Aggregation Inhibitor, Nonsteroidal Anti-inflammatory Drug Start: 11-27-2021 aspirin chewable tablet 81 mg breath-actuated 120 actuat beclomethasone dipropionate 0.08 mg/actuat metered dose inhaler (3 sources) Corticosteroid Start: 12-15-2021 take 2 puff(s) by inhalation in the morning Qvar RediHaler 80 MCG/ACT inhaler Inhale 2 puffs in the morning and 2 puffs before bedtime. 0 12/15/2021 Active Completed/Discontinued Medications Medication Drug Class(es) Dates Sig (Normalized) Sig (Original) [id number] 200 actuat albuterol 0.09 mg/actuat metered dose inhaler (9 sources) beta2-Adrenergic Agonist Start: 11-26-2021 take 1 puff(s) by inhalation every four hours as needed 1 puff, Inhalation, EVERY 4 HOURS PRN, Starting on Thu11/26/21 at 0831, Until Discontinued, Wheezing Initiate RT Bronchodilator Protocol: No Problems Active Problems Problem Classification Problem Date Documented Da te Episodic/Chronic Allergic reactions (6 sources) Allergy status to other antibiotic agents status; Translations: [Allergy status to narcotic agent status] Onset: 11-26-2021 Episodic Anxiety disorders (1 source) Mixed anxiety and depressive disorder 02-15-2019 Chronic Asthma (10 sources) Asthma; Translations: [Unspecified asthma, uncomplicated] Onset: 10-25-2019 10-25-2019 Chronic Bacterial infection; unspecified site (1 source) Scarlet fever 02-15-2019 Episodic Past or Other Problems Problem Classification Problem Date Documented Da te Episodic/Chronic Abdominal pain (8 sources) Generalized abdominal pain; Translations: [Generalized abdominal pain] Onset: 04-04-2019 04-04-2019 Episodic Biliary tract disease (8 sources) Cholecystitis without calculus; Translations: [Cholecystitis, unspecified] Onset: 09-29-2019 09-29-2019 Episodic Blindness and vision defects (3 sources) Visual disturbance; Translations: [Unspecified visual disturbance] Onset: 04-25-2019 04-25-2019 Episodic Other gastrointestinal disorders (4 sources) Slow transit constipation; Translations: [Slow transit constipation] Onset: 04-04-2019 04-04-2019 Episodic Other lower respiratory disease (4 sources) Dyspnea; Translations: [Dyspnea, unspecified] Onset: 11-26-2021 Episodic Other lower respiratory disease (4 sources) Shortness of breath; Translations: [Shortness of breath] Onset: 11-26-2021 Episodic Other screening for suspected conditions (not mental disorders or infectious disease) (3 sources) Liver function tests abnormal; Translations: [Abnormal results of liver function studies] Onset: 02-06-2022 Episodic Unclassified (1 source) Contact with and (suspected) exposure to COVID-19; Translations: [Contact with and (suspected) exposure to COVID-19] Onset: 11-26-2021 Results Test Name Value Interpretation Reference Range Facil ity Vital Signs Date Time Vital Sign Value Performing Clinician Cielo joe 06-30-2022 14:03-0400 Body height 172.7 cm Danie Lott MD Work Phone: [facility] [employer] 06-30-2022 14:03-0400 Body mass index (BMI) [Ratio] 28.13 kg/m2 Danie Lott MD Work Phone: [facility] [employer] 06-30-2022 14:03-0400 Body temperature 98.1 [degF] Danie Lott MD Work Phone: [facility] 06-30-2022 14:03-0400 Body weight 83.92 kg Danie Lott MD Work Phone: [facility] 06-30-2022 14:03-0400 Diastolic blood pressure 80 mm[Hg] Danie Lott MD Work Phone: [facility] 06-30-2022 14:03-0400 Heart rate 70 /min Danie Lott MD Work Phone: [facility] 06-30-2022 14:03-0400 Systolic blood pressure 129 mm[Hg] Danie Lott MD Work Phone: [facility] [employer] 11-27-2021 11:08-0400 Body temperature 97.59 [degF] Conor Treviño MD Work Phone: [facility] 11-27-2021 11:08-0400 Diastolic blood pressure 73 mm[Hg] Conor Treviño MD Work Phone: [facility] 11-27-2021 11:08-0400 Heart rate 63 /min Conor Treviño MD Work Phone: [facility] 11-27-2021 11:08-0400 Respiratory rate 18 /min Conor Treviño MD Work Phone: [facility] 11-27-2021 11:08-0400 SaO2% (BldA) [Mass fraction] 99 % Conor Treviño MD Work Phone: [facility] 11-27-2021 11:08-0400 Systolic blood pressure 123 mm[Hg] Conor Treviño MD Work Phone: [facility] 11-27-2021 09:02-0400 Body mass index (BMI) [Ratio] 27.4 kg/m2 Conor Treviño MD Work Phone: [facility] 11-27-2021 09:02-0400 Body weight 81.74 kg Conor Treviño MD Work Phone: [facility] 11-25-2021 13:39-0400 Body height 172.7 cm Conor Treviño MD Work Phone: [facility] 08-27-2021 11:18-0400 Body weight 83.01 kg Minesh Cottrell MD Work Phone: [facility] 08-27-2021 11:18-0400 Diastolic blood pressure 79 mm[Hg] Minesh Cottrell MD Work Phone: [facility] 08-27-2021 11:18-0400 Heart rate 64 /min Minesh Cottrell MD Work Phone: [facility] 08-27-2021 11:18-0400 Systolic blood pressure 121 mm[Hg] Minesh Cottrell MD Work Phone: [facility] Encounters Encounter Date Encounter Type Care Provider Facility Start: 12-17-2022 End: 12-22-2022 ambulatory BUSHRA GRAYSON MD Facility:B Start: 12-17-2022 End: 12-21-2022 Outreach Lab BUSHRA GRAYSON MD [facility] Start: 11-28-2022 End: 11-28-2022 ambulatory AROLDO MIRAMONTES Facility:[facility] Start: 06-30-2022 End: 06-30-2022 ambulatory [facility] Start: 06-30-2022 End: 06-30-2022 Office outpatient new 30 minutes Danie Lott MD Work Phone: [facility] General Surgery Procedures Date Procedure Procedure Detail Performing Clinician Start: 11-27-2021 Ecg routine ecg w/le ast 12 lds w/i&r Clarice Chu PA-C Work Phone: Start: 11-27-2021 Blood count complete automated Clarice Chu PA-C Work Phone: Start: 11-26-2021 Echo tthrc r-t 2d w/wom-mode compl spec&colr d Quinton Dodge MD Work Phone: Start: 11-26-2021 ADD ON LAB TEST Quinton daley MD Work Phone: Start: 11-26-2021 Natriuretic peptide Sha rodrigue Chu PA-C Work Phone: Start: 11-26-2021 Basic metabolic pane l calcium total Jovanna Say SHOWCASE TRIMMER - ART PSYCHOTHERAPIST Work Phone: Start: 11-26-2021 Lipid panel Jovanna ferreira SHOWCASE TRIMMER - ART PSYCHOTHERAPIST Work Phone: Start: 11-26-2021 COVID-19 Nahun Gomez MD Work Phone: Start: 11-25-2021 Ct angiography chest w/contrast/noncontrast Conor Treviño MD Work Phone: Start: 11-25-2021 ADD ON LAB TEST Nahun Gomez MD Work Phone: Start: 11-25-2021 Radiologic exam ches t single view Conor Treviño MD Work Phone: Start: 11-25-2021 Basic metabolic pane l calcium total Jaquan Lui MD Work Phone: Start: 11-25-2021 Hepatic function panel Jaquan Lui MD Work Phone: Start: 11-25-2021 Ecg routine ecg w/le ast 12 lds w/i&r Jaquan Lui MD Work Phone: Start: 09-11-2021 Ct abdomen w/contras t material Minesh Cottrell MD Work Phone: Start: 01-16-2019 Cyst of ovary (disorder) BUSHRA GRAYSON MD Plan of Treatment Date Care Activity Detail Author Start: 10-17-2022 Influenza vaccination Influenza Vaccine (Season Ended) [facility] Start: 10-17-2021 Influenza vaccination INFLUENZA (#1) [facility] Start: 09-16-2021 Influenza vaccination Flu vaccine (#1) [facility] Start: 02-16-2021 DEPRESSION ASSESSMENT DEPRESSION ASSESSMENT [facility] Start: 06-02-2019 DTaP/Tdap/Td vaccine (7 - Td or Tdap) DTaP/Tdap/Td vaccine (7 - Td or Tdap) [facility] Start: 06-02-2019 DTaP/Tdap/Td Vaccines (7 - Td or Tdap) DTaP/Tdap/Td Vaccines (7 - Td or Tdap) [facility] Start: 06-18-2018 Pneumococcal 0-64 years Vaccine (2 - PCV) Pneumococcal 0-64 years Vaccine (2 - PCV) [facility] Start: 06-18-2018 Pneumococcal Vaccine: Pediatrics (0 to 5 Years) and At-Risk Patients (6 to 64 Years) (3 - PCV) Pneumococcal Vaccine: Pediatrics (0 to 5 Years) and At-Risk Patients (6 to 64 Years) (3 - PCV) [facility] Start: 2014 HPV TESTING HPV TESTING [facility] Start: 2014 Screening for malignant neoplasm of cervix [facility] Start: 03-13-2012 Hepatitis A Vaccines (2 of 2 - Risk 2-dose series) Hepatitis A Vaccines (2 of 2 - Risk 2-dose series) [facility] Start: 01-19-2009 Varicella vaccination Varicella Vaccines (1 of 2 - 2-dose childhood series) [facility] Start: 01-19-2009 Varicella vaccine (1 of 2 - 2-dose childhood series) Varicella vaccine (1 of 2 - 2-dose childhood series) [facility] Start: 2005 PAP TESTING PAP TESTING [facility] Start: 2005 Screening for malignant neoplasm of cervix Pap smear [facility] Start: 12-11-2003 SHINGRIX VACCINE (1 of 2) SHINGRIX VACCINE (1 of 2) [facility] Start: 12-11-2003 Urine microalbumin profile DTAP,TDAP,TD (1 - Tdap) [facility] Start: 12-11-2003 Zoster Vaccines (1 of 2) Zoster Vaccines (1 of 2) [facility] Start: 2002 ANNUAL PCP TEAM CHRONIC DISEASE VISIT ANNUAL PCP TEAM CHRONIC DISEASE VISIT [facility] Start: 2002 Hepatitis C screening Hepatitis C Screening [facility] Start: 2002 HIV SCREENING HIV SCREENING [facility] Start: 2002 SPIROMETRY SPIROMETRY [facility] Start: 12-11-1999 HIV screening [facility] Start: 1996 Adult depression screening assessment DEPRESSION SCREENING [facility] Start: 1996 Depression Screen [facility] Screen [facility] Start: 1990 PNEUMOCOCCAL (1 - PCV) PNEUMOCOCCAL (1 - PCV) [facility] Start: 1989 COVID-19 VACCINE (#1) COVID-19 VACCINE (#1) [facility] Start: 06-10-1985 COVID-19 Vaccine (#1) COVID-19 Vaccine (#1) [facility] Start: 1984 HEPATITIS B (1 of 3 - 3-dose series) HEPATITIS B (1 of 3 - 3-dose series) [facility] Start: 1984 HIV screening HIV Screening [facility] End: 11-25-2021 Brain Natriuretic Peptide Brain Natriuretic Peptide Lab Add-On One Time for 1 Occurrences starting 11/25/2021 until 11/25/2021 [facility] Work Phone: Immunizations Immunization Date Immunization Notes Care Provider Fa jeremiah 12-25-2017 influenza virus vacc ine, unspecified formulation Danie Lott MD Work Phone: [facility] 06-18-2017 pneumococcal polysaccharide vaccine, 23 valent BUSHRA GRAYSON MD [facility] 01-25-2015 influenza virus vacc ine, unspecified formulation BUSHRA GRAYSON MD [facility] 11-16-2013 influenza virus vacc ine, unspecified formulation BUSHRA GRAYSON MD [facility] 11-02-2013 pneumococcal polysaccharide vaccine, 23 valent BUSHRA GRAYSON MD [facility] 03-12-2012 influenza virus vacc ine, unspecified formulation BUSHRA GRAYSON MD [facility] 09-11-2011 hepatitis A vaccine, adult dosage BUSHRA GRAYSON MD [facility] 09-11-2011 hepatitis A and hepatitis B vaccine Danie Lott MD Work Phone: [facility] 06-01-2009 tetanus toxoid, redu kenzie diphtheria toxoid, and acellular pertussis vaccine, adsorbed BUSHRA GRAYSON MD [facility] 01-25-2007 Human Papillomavirus Quadval BUSHRA GRAYSON MD [facility] 02-04-2006 Human Papillomavirus Quadval BUSHRA GRAYSON MD [facility] 11-28-2005 Human Papillomavirus Quadval BUSHRA GRAYSON MD [facility] 04-19-2004 hepatitis B pediatri c vaccine BUSHRA GRAYSON MD [facility] 11-20-2003 hepatitis B pediatri c vaccine BUSHRA GRAYSON MD [facility] 10-20-2003 hepatitis B pediatri c vaccine BUSHRA GRAYSON MD [facility] 10-20-2003 tetanus and diphther ia toxoids, adsorbed, preservative free, for adult use (5 Lf of tetanus toxoid and 2 Lf of diphtheria toxoid) BUSHRA GRAYSON MD [facility] 09-01-1990 diphtheria, tetanus toxoids and acellular pertussis vaccine, unspecified formulation BUSHRA GRAYSON MD [facility] 09-01-1990 poliovirus vaccine, inactivated BUSHRA GRAYSON MD [facility] 04-29-1988 diphtheria, tetanus toxoids and acellular pertussis vaccine, unspecified formulation BUSHRA GRAYSON MD [facility] 04-29-1988 poliovirus vaccine, inactivated BUSHRA GRAYSON MD [facility] 11-26-1987 diphtheria, tetanus toxoids and acellular pertussis vaccine, unspecified formulation BUSHRA GRAYSON MD [facility] 09-03-1987 diphtheria, tetanus toxoids and acellular pertussis vaccine, unspecified formulation BUSHRA GRAYSON MD [facility] 09-03-1987 measles/mumps/rubell a virus vaccine BUSHRA GRAYSON MD [facility] 09-03-1987 poliovirus vaccine, inactivated BUSHRA GRAYSON MD [facility] 12-14-1985 diphtheria, tetanus toxoids and acellular pertussis vaccine, unspecified formulation BUSHRA GRAYSON MD [facility] 12-14-1985 poliovirus vaccine, inactivated BUSHRA GRAYSON MD [facility] Payers Date Payer Category Payer Unknown [id number] 2015 Private Health Insurance [employer] A ETNA CHOICE POS II [id number] 2015-Present [phone] [address] [place] [address] POS [id number] 2014 Private Health Insurance [id number] 2014 Private Health Insurance 1984 Unknown [id number] 1984 Unknown [id number] 1984 Unknown [id number] Social History Date Type Detail Facility Start: 03-13-2016 End: 06-11-2017 Tobacco smoking status NHIS Ex-smoker [facility] End: 02-17-2004 History of tobacco use Current smoker [facility] End: 02-17-2004 History of tobacco use Cigarette Smoker [facility] Start: 03-13-2016 End: 06-30-2022 Cigarettes smoked current (pack per day) - Reported 0.5 [facility] Start: 03-13-2016 End: 06-11-2017 Tobacco use and exposure Smokeless tobacco non-user [facility] Start: 08-27-2021 Alcohol intake Ex-drinker (finding) [facility] Start: 06-11-2017 History SDOH Alcohol Comment Occasionally; once a week [facility] Start: 1984 Sex Assigned At Not on file [facility] Start: 02-15-2019 End: 04-25-2019 Tobacco smoking status RUST Never smoked tobacco [facility] Work Phone: Clinical Notes 08-27-2021 to 12-19-2022 Danie Lott MD - 06/30/2022 2:15 PM Chris Ibarra - 11/27/2021 1:48 PM Kimberlee Espino MD - 11/27/2021 9:20 AM EDTKimbRT Lashawn(R) - 09/11/2021 9:00 AM EDT Note Date & Type Note Facility 12-19-2022 Note . MICRO - Microbiology PROCEDURE: Urine Culture [*1] SOURCE: Urine, Clean Catch BODY SITE: COLLECTED DATE/TIME: 12/17/2022 17:32 EDT RECEIVED DATE/TIME: 12/17/2022 19:30 EDT START DATE/TIME: 12/17/2022 19:30 EDT FREE TEXT SOURCE: FINAL REPORTS Final Report [] Verified Date/Time/Personnel: 12/19/2022 07:53 EDT >100,000 cfu/ml Mixed growth consistent with normal urogenital ana rosa. PRELIMINARY REPORTS Preliminary Report [] Verified Date/Time/Personnel: 12/18/2022 09:47 EDT No growth to date Performing Locations *1: This test was performed at: [address] , [facility] ([place]) 11-28-2022 Note HNO ID: [id number] Author: Melissa Langley RT(R) Service: ? Author Type: Vice President For Instruction Type: Progress Notes Filed: 11/28/2022 4:11 PM Note Text: Radiology Service Progress Note DATE OF SERVICE: November 28, 2022 TIME: 4:10 PM PATIENT IDENTITY VERIFICATION COMPLETED USING TWO (2) STANDARD IDENTIFIERS: Name and Date of confirmed by patient verbally. FALL SCREENING: Has the patient had 2 falls in the last year or 1 fall with injury or currently using an Ambulatory Assistive Device (Walker, Cane, Wheelchair, Crutches, etc.)? No PATIENT GENDER DATA: Female. status: : No status: NO. PATIENT RELEVANT IMPLANT DATA REVIEWED: Yes ALLERGIES: Reviewed and unchanged CONTRAST ALLERGY: NO. EXAM: CT -CONTRAST INDUCED NEPHROPATHY RISK FACTORS: Not applicable CREATININE: Creatinine Date Value Ref Range Status 04/19/2020 0.70 0.58 - 0.96 mg/dL Final 10/19/2019 0.90 0.58 - 0.96 mg/dL Final 05/12/2019 0.80 0.58 - 0.96 mg/dL Final eGFR-All Other Races Date Value Ref Range Status 04/19/2020 >60 . Final Comment: eGFR (Estimated GFR) Units of measure: mL/min/1.73 meters squared eGFR is derived from the reexpressed MDRD Study equation using the following parameters: serum creatinine, age, gender and race. The creatinine assay has been calibrated to be traceable to IDMS. An eGFR <60 mL/min/1.73m2 for >3 months is consistent with chronic kidney disease. Refer to KDOQI guidelines for clinical interpretation. In patients with unstable renal function, e.g. those with acute kidney injury, the eGFR may not accurately reflect actual GFR. eGFR- Date Value Ref Range Status 04/19/2020 >60 Final P.O.C.T. RESULTS: POC done: Yes, See Lab Tab November 28, 2022 TREATMENT: N/A PERIPHERAL IV DATA: Ambulatory: A peripheral IV was started in the Left antecubital site with a Angio cath: 22 gauge. RADIOLOGY DEPARTMENT: CT; Exam(s) Completed: Abdomen/Pelvis SIGNATURE: RT Roas(R) PATIENT NAME: Michelle Mauricio DATE: November 28, 2022 TIME: 4:10 PM [facility] 06-30-2022 Note This 36-year-old fem grace, G5, P3, was referred for breast evaluation. She states she has a 80-qlbob-ddk infant and continues to breast-feed. She has been aware of intermittent discomfort in the left subareolar region and in the left axillary region for ~3 months. She denies history of mastitis or fever. She describes a pinching or electric shock sensation beneath the left nipple which has recently resolved. She continues to be aware of some fullness and discomfort in the left axilla. Diagnostic mammogram 05/16/2022 showed lactational changes without obvious suspicious mass. Left breast ultrasound showed a 2.1 x 2.3 lymph node with normal morphology. A 3-month follow-up ultrasound was recommended. There is no family history of breast cancer. She has had no previous breast surgery. She states she intends to have 1 more child. On exam, she is alert and oriented x3. She is in no acute distress. BMI is 28.13. Skin and sclerae are anicteric. Chest excursions are normal. The breasts are symmetrical in shape and contour bilaterally. Bilateral lactational changes and fibroglandular changes are noted without discrete mass palpated in either breast. No skin changes or adenopathy, either side. Imaging was done in [place] and was not available for review. Impression: Probable discomfort due to lactational changes in tail of breast with a reactive axillary lymph node. Plan: Continue close observation with frequent self exams. Trial of diclofenac gel to left axilla. Agree with follow-up left axillary ultrasound. She will notify us should she have a change in self-exam in the interim. [facility] 06-30-2022 History of Present illness Narrative This 36-year-old female, G5, P3, was referred for breast evaluation. She states she has a 80-velap-fcl and continues to breast-feed. She has been aware of intermittent discomfort in the left subareolar region and in the left axillary region for ~3 months. She denies history of mastitis or fever. She describes a pinching or electric shock sensation beneath the left nipple which has recently resolved. She continues to be aware of some fullness and discomfort in the left axilla. Diagnostic mammogram 05/16/2022 showed lactational changes without obvious suspicious mass. Left breast ultrasound showed a 2.1 x 2.3 lymph node with normal morphology. A 3-month follow-up ultrasound was recommended. There is no family history of breast cancer. She has had no previous breast surgery. She states she intends to have 1 more child. On exam, she is alert and oriented x3. She is in no acute distress. BMI is 28.13. Skin and sclerae are anicteric. Chest excursions are normal. The breasts are symmetrical in shape and contour bilaterally. Bilateral lactational changes and fibroglandular changes are noted without discrete mass palpated in either breast. No skin changes or adenopathy, either side. Imaging was done in [place] and was not available for review. Impression: Probable discomfort due to lactational changes in tail of breast with a reactive axillary lymph node. Plan: Continue close observation with frequent self exams. Trial of diclofenac gel to left axilla. Agree with follow-up left axillary ultrasound. She will notify us should she have a change in self-exam in the interim. documented in this encounter [facility] 02-06-2022 Note HNO ID: [id number] Author: RT Maria T(R) Service: ? Author Type: Vice President For Instruction Type: Progress Notes Filed: 02/06/2022 9:42 AM Note Text: Radiology Service Progress Note DATE OF SERVICE: February 06, 2022 TIME: 9:41 AM PATIENT IDENTITY VERIFICATION COMPLETED USING TWO (2) STANDARD IDENTIFIERS: Name and Date of confirmed by patient verbally. FALL SCREENING: Has the patient had 2 falls in the last year or 1 fall with injury or currently using an Ambulatory Assistive Device (Walker, Cane, Wheelchair, Crutches, etc.)? No PATIENT GENDER DATA: Female. status: status: Yes status: YES .told to pump and dump x 48 hrs PATIENT RELEVANT IMPLANT DATA REVIEWED: Yes ALLERGIES: Reviewed and unchanged CONTRAST ALLERGY: NO. EXAM: CT -CONTRAST INDUCED NEPHROPATHY RISK FACTORS: Not applicable CREATININE: Creatinine Date Value Ref Range Status 04/19/2020 0.70 0.58 - 0.96 mg/dL Final 10/19/2019 0.90 0.58 - 0.96 mg/dL Final 05/12/2019 0.80 0.58 - 0.96 mg/dL Final eGFR-All Other Races Date Value Ref Range Status 04/19/2020 >60 . Final Comment: eGFR (Estimated GFR) Units of measure: mL/min/1.73 meters squared eGFR is derived from the reexpressed MDRD Study equation using the following parameters: serum creatinine, age, gender and race. The creatinine assay has been calibrated to be traceable to IDMS. An eGFR <60 mL/min/1.73m2 for >3 months is consistent with chronic kidney disease. Refer to KDOQI guidelines for clinical interpretation. In patients with unstable renal function, e.g. those with acute kidney injury, the eGFR may not accurately reflect actual GFR. eGFR- Date Value Ref Range Status 04/19/2020 >60 Final P.O.C.T. RESULTS: POC done: Yes, See Lab Tab February 06, 2022 TREATMENT: N/A PERIPHERAL IV DATA: Ambulatory: A peripheral IV was started in the Left antecubital site with a Angio cath: 18 gauge. RADIOLOGY DEPARTMENT: CT; Exam(s) Completed: Liver SIGNATURE: RT Rosa(R) PATIENT NAME: Michelle Mauricio DATE: February 06, 2022 TIME: 9:41 AM [facility] 11-27-2021 History of Present illness Narrative Nutrition rescreen completed. Chart reviewed. Patient to be monitored and followed by the diet energy technician. Tatum Ibarra, DT CARDIOLOGY PROGRESS NOTE Chart and interval events reviewed. Reason for Visit shortness of breath SUBJECTIVE: Michelle Mauricio states she feels about the same. She denies chest pain, palpitations. SCHEDULED MEDICATIONS: sodium chloride flush 5-40 mL IntraVENous 2 times per day aspirin 81 mg Oral Daily enoxaparin 40 mg SubCUTAneous Daily fluticasone 1 puff Inhalation BID montelukast 10 mg Oral Nightly sodium chloride flush 5-40 mL IntraVENous 2 times per day magnesium oxide 400 mg Oral Daily vitamin 1 tablet Oral Daily sodium chloride 1,000 mL IntraVENous Once Active Problems: Dyspnea Mild intermittent asthma without complication ASD (atrial septal defect) Resolved Problems: * No resolved hospital problems. * Review of Systems: Review of Systems Respiratory: Positive for shortness of breath. All other systems reviewed and are negative. VITAL SIGNS: Vitals: 11/26/21 2302 11/27/21 0328 11/27/21 0730 11/27/21 0902 BP: 102/62 127/78 106/63 Pulse: 68 73 64 Resp: 16 16 17 Temp: 97.3 F (36.3 C) 97.2 F (36.2 C) 97.2 F (36.2 C) TempSrc: Temporal Temporal Temporal SpO2: 96% 98% 99% Weight: 180 lb 3.2 oz (81.7 kg) Height: Intake/Output Summary (Last 24 hours) at 11/27/2021 0926 Last data filed at 11/26/2021 1000 Gross per 24 hour Intake 120 ml Output -- Net 120 ml Patient Vitals for the past 96 hrs (Last 3 readings): Weight 11/27/21 0902 180 lb 3.2 oz (81.7 kg) 11/25/21 1339 180 lb (81.6 kg) Physical Exam: Physical Exam Vitals reviewed. Constitutional: General: She is not in acute distress. Appearance: Normal appearance. HENT: Head: Normocephalic and atraumatic. Right Ear: External ear normal. Left Ear: External ear normal. Nose: Nose normal. No congestion or rhinorrhea. Mouth/Throat: Tongue: No lesions. Palate: No lesions. Pharynx: Oropharynx is clear. No oropharyngeal exudate. Eyes: Extraocular Movements: Extraocular movements intact. Conjunctiva/sclera: Conjunctivae normal. Pupils: Pupils are equal, round, and reactive to light. Neck: Thyroid: No thyromegaly. Cardiovascular: Rate and Rhythm: Normal rate and regular rhythm. Heart sounds: Normal heart sounds. No murmur heard. Pulmonary: Effort: Tachypnea present. No respiratory distress. Breath sounds: Normal breath sounds. No stridor. No wheezing, rhonchi or rales. Chest: Chest wall: No tenderness. Abdominal: General: There is no distension. Palpations: Abdomen is soft. There is no hepatomegaly or splenomegaly. Tenderness: There is no abdominal tenderness. Musculoskeletal: General: Normal range of motion. Cervical back: Normal range of motion and neck supple. Right lower leg: No edema. Left lower leg: No edema. Lymphadenopathy: Cervical: No cervical adenopathy. Skin: General: Skin is warm and dry. Findings: No rash. Neurological: General: No focal deficit present. Mental Status: She is alert and oriented to person, place, and time. Cranial Nerves: No cranial nerve deficit. Sensory: No sensory deficit. Data: Scheduled Meds: Reviewed Continuous Infusions: sodium chloride sodium chloride CBC: Recent Labs 11/26/21 0603 11/27/21 0337 WBC 6.3 6.7 HGB 13.7 12.8 HCT 39.3 38.5 PLT 204 210 BMP: Recent Labs 11/25/21 1506 11/26/21 0603 NA 141 139 K 3.7 3.9 CL 111* 113* CO2 22 20* BUN 13 11 CREATININE 0.58 0.59 INR:No results for input(s): INR in the last 72 hours. No results for input(s): BNP in the last 72 hours. TSH: Lab Results Component Value Date TSH 1.287 11/25/2021 Cardiac Injury Profile: Recent Labs 11/25/21 1506 11/26/21 0603 11/26/21 0936 TROPONINI <0.012 0.019 0.019 Lipid Profile: Lab Results Component Value Date/Time TRIG 65 11/26/2021 06:03 AM HDL 70 11/26/2021 06:03 AM CHOL 146 11/26/2021 06:03 AM EKG: See Report Telemetry Reviewed: Sinus rhythm Echo: See Report IMPRESSIONS/RECOMMENDATIONS: Shortness of breath: The patient still appears to have a somewhat labored respiration. However the remainder of the exam is unremarkable. I personally reviewed her echocardiogram which shows normal left ventricular systolic and diastolic function and normal strain as well as normal right ventricular systolic function. Valvular function is normal. There is no evidence of right ventricular pressure or volume overload. A small to moderate sized PFO was confirmed with a normal saline bubble study. In addition, a low BNP of 44 also has excellent negative predictive value for heart failure. I discussed the case with Dr. Otto, pulmonology. It appears that based on the currently available data no clear cause for the patient's symptoms could be found. A cardiopulmonary stress test may help to separate cardiac from pulmonary causes versus deconditioning. Patient may be discharged home and will follow locally with her local helper metal hanging and chart collector for further evaluation and treatment. I reviewed my assessment and plan with Michelle Mauricio . All questions were answered. Addendum: will arrange CPET and F/U with me after CPET. Cardiology will sign off. NOTE: This report was transcribed using voice recognition software. Every effort was made to ensure accuracy; however, inadvertent computerized fork repairer errors may be present. Electronicallysigned by Rocio Espino MD on 11/27/2021 at 9:26 AM documented in this encounter [facility] Work Phone: 11-27-2021 Note Hospitalist Discharg e Summary Michelle Mauricio : 1985 Admit date: 11/25/2021 Discharge date: 11/27/2021 Admitting Physician: Mario Bell MD Primary Care Physician: Gato Lujan MD Visit Status: Observation Code Status: Full Code Discharge Diagnoses: Dyspnea-unknown cause Diagnosis Date Arthritis Asthma Blurry vision Fractures 2009 right tibia fx Immune deficiency disorder (HCC) Mass right leg Rheumatoid arthritis (HCC) Procedures: echo/CTA chest Hospital Course:Michelle is a 35 y.o. female with past medical history with past medical history of rheumatoid arthritis, hepatomegaly, and asthma who presents with 1 month of abrupt onset of severe shortness of breath. The patient states that she was in her normal state of health when she began to feel short of breath on exertion roughly 1 month ago. This is progressively worsened in the intervening time. She was evaluated by pulmonology who started her on more inhalers given her history of asthma, however this does not improve her symptoms. She has also been having consistent chest pressure for the past 2 weeks. She said she had a recent echo, has a history of PFO/ASD, does not know results of echo. Work up done at [facility], we do not have a shared record, she did sign records release. Pressure slightly worse with exertion, nothing makes it better. She states that she is short of breath on exertion and when laying flat. She was recently and gave 6 months ago. No serious abnormalities with except PIH at the end. COVID 1 year ago, but was not hospitalized. She is a non smoker. She denies any personal or family history of hereditary lung disease. She endorses some mild lightheadedness on exertion associated with her shortness of breath. Overnight, patient remained stable, no episodes of hypoxia or arrhythmia. Patient seen in consultation by cardiology and pulmonology in which neither specialty had an explanation for her symptoms. Echo performed which did show PFO, but otherwise normal cardiac function. Troponin x 3 negative, BNP 44. CTA negative PE. Patient to have CPET testing outpatient and will f/u with cardiology after testing. She should f/u with her chart collector as well. See discharge diagnoses list above and medication adjustments below in med rec.The patient is discharged in stable condition. Consults: IP CONSULT TO CARDIOLOGY IP CONSULT TO PULMONOLOGY Discharge Instructions: Diet: ADULT DIET; Regular Activity: as tolerated Recommended Outpatient Tests: Disposition: Patient discharged in stable condition to Home. Less than 30 minutes spent discharging the patient and coming up with patient discharge plan. Vitals: BP 106/63 Pulse 64 Temp 97.2 ?F (36.2 ?C) (Temporal) Resp 17 Ht 5' 8 (1.727 m) Wt 180 lb 3.2 oz (81.7 kg) SpO2 99% BMI 27.40 kg/m? Pulse Ox: SpO2 Av % Min: 96 % Max: 99 % Supplemental O2: General appearance: No apparent distress, appears stated age and cooperative with exam HEENT: Normal cephalic, atraumatic without obvious deformity. Pupils equal, round, and reactive to light. Extra ocular muscles intact. Conjunctivae/corneas clear. Neck: Supple, with full range of motion. No jugular venous distention. Trachea midline. No lymphadenopathy. Respiratory: Normal respiratory effort. Clear to auscultation, bilaterally without Rales/Wheezes/Rhonchi. Cardiovascular: Regular rate and rhythm with normal S1/S2 without murmurs, rubs or gallops. Abdomen: Soft, non-tender, non-distended with normal bowel sounds. No rebound or guarding. Musculoskeletal: No clubbing, cyanosis or edema bilaterally. Full range of motion without deformity. Skin: Skin color, texture, turgor normal. No rashes or lesions. Neurologic: Neurovascularly intact without any focal sensory/motor deficits. Cranial nerves: II-XII intact, grossly non-focal. Discharge Medications: Medication List CONTINUE taking these medications albuterol sulfate HFA 108 (90 Base) MCG/ACT inhaler Commonly known as: PROVENTIL;VENTOLIN;PROAIR beclomethasone 80 MCG/ACT Aerb inhaler Commonly known as: QVAR REDIHALER certolizumab pegol 2 X 200 MG/ML Kit injection Commonly known as: CIMZIA indomethacin 75 MG extended release capsule Commonly known as: INDOCIN SR magnesium oxide 400 MG tablet Commonly known as: MAG-OX Forte Tabs Singulair 10 MG tablet Generic drug: montelukast vitamin B-12 1000 MCG tablet Commonly known as: CYANOCOBALAMIN vitamin D 50 MCG (2000 UT) Caps capsule STOP taking these medications Actemra 162 MG/0.9ML Sosy injection Generic drug: tocilizumab buPROPion 300 MG extended release tablet Commonly known as: WELLBUTRIN XL calcium carbonate 500 MG Tabs tablet Commonly known as: OSCAL diclofenac sodium 1 % Gel Commonly known as: VOLTAREN NUVARING VA Recommended Follow-up: MD Chapo Mueller (more content not included)... [facility] 09-12-[address] showed enlarged liver with stable hemangioma. No evidence of advanced liver disease. Prior liver biopsy was unremarkable. No need for further work up No need for further work up Minesh Cottrell MD Dr. Cottrell, please review CT liver and advise. Thank you, Shara Acosta RN documented in this encounter [facility] 09-11-2021 History of Present illness Narrative Radiology Service Progress Note DATE OF SERVICE: September 11, 2021 TIME: 12:02 PM PATIENT IDENTITY VERIFICATION COMPLETED USING TWO (2) STANDARD IDENTIFIERS: Name and Date of confirmed by patient verbally. FALL SCREENING: Has the patient had 2 falls in the last year or 1 fall with injury or currently using an Ambulatory Assistive Device (Walker, Cane, Wheelchair, Crutches, etc.)? No PATIENT GENDER DATA: Female. status: : No status: NO. PATIENT RELEVANT IMPLANT DATA REVIEWED: Yes ALLERGIES: Reviewed and unchanged CONTRAST ALLERGY: NO. EXAM: CT -CONTRAST INDUCED NEPHROPATHY RISK FACTORS: Not applicable CREATININE: Creatinine Date Value Ref Range Status 04/19/2020 0.70 0.58 - 0.96 mg/dL Final 10/19/2019 0.90 0.58 - 0.96 mg/dL Final 05/12/2019 0.80 0.58 - 0.96 mg/dL Final eGFR-All Other Races Date Value Ref Range Status 04/19/2020 >60 . Final Comment: eGFR (Estimated GFR) Units of measure: mL/min/1.73 meters squared eGFR is derived from the reexpressed MDRD Study equation using the following parameters: serum creatinine, age, gender and race. The creatinine assay has been calibrated to be traceable to IDMS. An eGFR <60 mL/min/1.73m2 for >3 months is consistent with chronic kidney disease. Refer to KDOQI guidelines for clinical interpretation. In patients with unstable renal function, e.g. those with acute kidney injury, the eGFR may not accurately reflect actual GFR. eGFR- Date Value Ref Range Status 04/19/2020 >60 Final P.O.C.T. RESULTS: POC done: Yes, See Lab Tab September 11, 2021 TREATMENT: N/A PERIPHERAL IV DATA: Ambulatory: A peripheral IV was started in the Left antecubital site with a Angio cath: 18 gauge. RADIOLOGY DEPARTMENT: CT; Exam(s) Completed: Liver SIGNATURE: RT Rosa(R) PATIENT NAME: Michelle Mauricio DATE: September 11, 2021 TIME: 12:02 PM documented in this encounter [facility] 08-27-2021 History and physical note Hepatology Clinic Established patient Reason for Consult and HPI Michelle Mauricio is a 35 year old female who is referred to the hepatology clinic for evaluation of possible liver disease Most recent US showed hepatomegaly 19.9 cm ( enlarged by 5 cm compare to previous imaging) and hepatic hemangioma which has been stable for 2 years. Patient denies prior hx hepatic decompensation denied jaundice, Ascites , confusion/ hepatic encephalopathy, reversal of day/night sleep patterns, hematemesis or melena. Patient denied alcohol IVD use, intranasal cocaine or hx of blood transfusion prior to 1989. Denied taking Herbal medications Past Medical, Surgical, Family and Social Histories PAST MEDICAL HISTORY Diagnosis Date Antinuclear antibody (YOHAN) titer greater than 1:80 Hypertension Long-term use of immunosuppressant medication Rheumatoid arthritis (HCC) PAST SURGICAL HISTORY Procedure Laterality Date COLONOSCOPY 04/04/2019 Dr. Worthington-poor/inadequate prep. The prep is inadeqaute. Thick liquid stool seen throughout the colon. At least 30-40% of colonic wall was not well visualized. EGD 07/25/2019 Dr. Worthington-acute gastritis. SB Bx-unremarkable. Antrum/fundus Bx-unremarkable, HP negative. Mid esophagus Bx-unremarkable. EXTRACTION ERUPTED TOOTH/EXR LAPAROSCOPIC APPENDECTOMY 2010 LAPAROSCOPIC CHOLECYSTECTOMY 10/26/2019 lap liver biopsy LAPAROSCOPY DIAGNOSTIC 02/06/2019 Ruptured vein OOPHORECTOMY PARTIAL OR TOTAL Right 2018 FAMILY HISTORY Problem Relation Age of Onset Arthritis Mother RA Colon Cancer No Family History Social History Tobacco Use Smoking status: Former Smoker Packs/day: 0.50 Years: 2.00 Pack years: 1.00 Types: Cigarettes Quit date: 2004 Years since quittin.5 Smokeless tobacco: Never Used Vaping Use Vaping Use: Never used Substance Use Topics Alcohol use: Not Currently Alcohol/week: 2.5 standard drinks Types: 1 Glasses of Wine (5oz) per week Comment: Occasionally; once a week Drug use: No Allergies & Current Medications ALLERGIES Allergen Reactions Amoxicillin Shortness of Breath Doxycycline Shortness of Breath Keflex [Cephalexin] Hives Piperacillin Anaphylaxis Tazobactam Anaphylaxis Tramadol Vomiting Vancomycin Anaphylaxis : Current Outpatient Medications Medication Sig Lactobacillus acidophilus (PROBIOTIC) 10 billion cell cap Take by mouth. MAGNESIUM ORAL Take by mouth. certolizumab pegol (CIMZIA) 400 mg/2 mL (200 mg/mL x 2) sub-q syringe kit Inject 2 mL subcutaneously every 4 weeks. ergocalciferol 50,000 unit capsule (VITAMIN D2, DRISDOL) TAKE 1 CAPSULE BY MOUTH ONE TIME A WEEK FOR 12 DOSES. epinephrine (EPIPEN INJECTION) Inject 1 Pen intramuscularly as needed. ALBUTEROL INHALATION Inhale as instructed. certolizumab pegol (CIMZIA STARTER KIT) 400 mg/2 mL (200 mg/mL x 2) sub-q syringe kit Inject 2 mL subcutaneously every 2 weeks for 3 doses. Inject 400mg (2 pens) subcutaneously on weeks 0, 2 and 4 cyanocobalamin 1,000 mcg/mL INJECT 1 ML INTRAMUSCULARLY ONCE EVERY MONTH. *DISPENSE WITH 25G 1 INCH NEEDLE/SYRINGE Etonogestrel-Ethinyl Estradiol (NUVARING) 0.12-0.015 mg/24 hr vaginal ring Use 1 Each vaginally as directed. Insert vaginally and leave in place for 3 consecutive weeks, then remove for 1 week. ibuprofen (MOTRIN) 600 mg tablet Take 1 tablet by mouth every 6 hours as needed for Pain. promethazine (PHENERGAN) 25 mg tablet Take 1 tablet by mouth every 6 hours as needed (for nausea). ondansetron orally disintegrating (ZOFRAN ODT) 4 mg disintegrating tablet TAKE 1 TABLET BY MOUTH EVERY 8 HOURS NEEDED montelukast (SINGULAIR) 10 mg tablet Take 10 mg by mouth once daily. spironolactone (ALDACTONE) 100 mg tablet Take 100 mg by mouth once daily. No current facility-administered medications for this visit. Review Of Systems Pertinent positives per HPI. All others reviewed and negative. Physical Exam BP 121/79 Pulse 64 Wt 83 kg (183 lb) BMI 27.83 kg/m General appearance:well nourished, well hydrated, no acute distress Eyes External: conjunctivae and lids normal, No icterus Respiratory Respiratory effort: no intercostal retractions or use of accessory muscles CTA b/l Cardiovascular Auscultation: no murmur, rub, or gallop Gastrointestinal Abdomen: soft, non-tender, no masses, bowel sounds normal Musculoskeletal LE: No edema Skin Inspection: no rashes, lesions, or ulcerations Mental Status Exam Orientation: oriented to time, place, and person Labs and Imaging 07/25/[address] Worthington-acute gastritis. SB Bx-unremarkable. Antrum/fundus Bx-unremarkable, HP negative. Mid esophagus Bx-unremarkable. 09/26/[address] Worthington-normal. 10/26/2019 1. Gallbladder, cholecystectomy (A) - Chronic cholecystitis. 2. Liver, biopsy (B) - Liver parenchyma with no significant diagnostic alteration, see comment. COMMENT 2. The liver parenchyma shows preserved architecture with mild sinusoidal congestion in centrizonal regions. There is no significant steatosis or cholestasis. Swollen hepatocytes, Ada's hyaline or acidophil bodies are not seen. There is no portal or lobular inflammation. The bile ducts are unremarkable. There is prominence of central veins and portal veins without herniation or obliteration. The hepatic arteries aremintact. No significant iron deposition is seen on the iron stain. PAS/D stain does not reveal diagnostic alpha-1 antitrypsin inclusions. The trichrome stain does not show evidence of fibrosis. 06/14/2021 US abd limited-Liver: The liver is enlarged and measures 19.9 cm. There is normal echogenicity of the liver. The bile ducts are within normal limits. There is hepatic color flow. The direction of portal flow is hepatopetal. There is a 1.7 cm x 2.1 cm x 2.6 cm echogenic nodule in the superior aspect of the right lobe of liver suggestive of an hemangioma. This is essentially unchanged. Gallbladder: The patient is status post cholecystectomy. Common Bile Duct (C.B.D.): The common bile duct measures 4. mm. Component Latest Ref Rng & Units 05/12/2019 05/20/2019 05/22/2019 10/19/2019 04/19/2020 04/19/2020 04/19/2020 04/19/2020 9:17 AM 9:30 AM 9:30 AM 9:31 AM WBC 3.70 - 11.00 k/uL 8.21 5.16 RBC 3.90 - 5.20 m/uL 5.12 4.65 Hemoglobin 11.5 - 15.5 g/dL 15.0 14.1 Hematocrit 36.0 - 46.0 % 44.4 41.8 MCV 80.0 - 100.0 fL 86.7 89.9 MCH 26.0 - 34.0 pG 29.3 30.3 MCHC 30.5 - 36.0 g/dL 33.8 33.7 RDW-CV 11.5 - 15.0 % 12.4 12.2 Platelet Count 150 - 400 k/uL 195 187 MPV 9.0 - 12.7 fL 9.7 10.6 Neut% % 66.2 53.4 Abs Neut (ANC) 1.45 - 7.50 k/uL 5.42 2.75 Lymph% % 25.7 32.4 Abs Lymph 1.00 - 4.00 k/uL 2.11 1.67 [place]% % 6.6 8.5 Abs [place] <0.87 k/uL 0.54 0.44 Eosin% % 1.0 4.5 Abs Eosin <0.46 k/uL 0.08 0.23 Baso% % 0.5 1.2 Abs Baso <0.11 k/uL 0.04 0.06 Nucleated Reds 0 /100 WBC 0.0 0.0 Absolute nRBC <0.01 k/uL <0.01 <0.01 Diff Type Auto Diff Auto Diff Protein, Total 6.3 - 8.0 g/dL 7.4 6.8 7.2 Albumin 3.9 - 4.9 g/dL 4.6 4.3 4.3 Calcium 8.5 - 10.2 mg/dL 9.3 9.4 Bilirubin, Total 0.2 - 1.3 mg/dL 0.6 0.4 0.4 Alkaline Phosphatase 34 - 123 U/L 41 49 48 AST 13 - 35 U/L 10 (L) 14 15 Glucose 74 - 99 mg/dL 90 90 BUN 7 - 21 mg/dL 10 11 Creatinine 0.58 - 0.96 mg/dL 0.90 0.70 Sodium 136 - 144 mmol/L 136 140 Potassium 3.7 - 5.1 mmol/L 3.9 4.2 Chloride 97 - 105 mmol/L 102 107 (H) CO2 22 - 30 mmol/L 25 24 Anion Gap 9 - 18 mmol/L 9 9 ALT 7 - 38 U/L 8 13 14 eGFR- >60 >60 eGFR-All Other Races . >60 >60 Bilirubin, Conjug <0.2 mg/dL <0.2 TB Nil IU/mL 0.04 TB1 Ag minus Nil <0.35 IU/mL 0.01 TB2 Ag minus Nil <0.35 IU/mL 0.01 Mitogen minus Nil 9.12 TB Result Negative Negative TB Interpretation No evidence of current or previous infection with Mycobacterium tuberculosis. Iron 41 - 186 ug/dL 189 (H) TIBC 232 - 386 ug/dL 331 Transferrin Saturation 15 - 57 % 57 Period hr 24 Urine Volume 24 hour mL 1,250 Gastrin <115.0 pg/mL 23 Parietal Cell Ab Panel Negative Negative Intrinsic Factor Ab Negative Negative Transglutaminase Ab, IgG <20 Units 3 Transglutaminase Ab, IgA <20 Units 3 IgA 78 - 391 mg/dL 178 Ferritin 14.7 - 205.1 ng/mL 61.3 Copper 85 - 155 ug/dL 66 (L) 151 Vitamin D 25 Hydroxy 31.0 - 80.0 ng/mL 20.5 (L) 32.5 Vitamin B12 232 - 1,245 pg/mL 428 Magnesium 1.7 - 2.3 mg/dL 2.1 Ceruloplasmin 16 - 45 mg/dL 15 (L) 36 Copper, 24 Hr Urine <60 ug/24 hr <9 CRP <0.9 mg/dL <0.1 <0.3 WSR 0 - 20 mm/hr 2 2 Copper, Ser/Pl Free (Direct) mcg/L 460 Component Latest Ref Rng & Units 05/31/2015 Hep B Surface Ag Negative Negative Hepatitis C Antibody Negative Negative Hep B Surf Ab Quant mIU/mL 74.9 Assessment and Recommendations Michelle L Luly is a 35 year old female who is referred to the hepatology clinic for evaluation of possible liver disease Most recent US showed hepatomegaly 19.9 cm ( enlarged by 5 cm compare to previous imaging) and hepatic hemangioma which has been stable for 2 years. Liver enzymes are normal Previously patient had low ceruloplasmin which normalized, urine copper levels were normal and patient does not have Angie Elijah rings. Liver biopsy was done previously and showed no evidence of liver disease. - Will arrange for CT liver to further evaluate hepatomegaly Minesh Cottrell MD Cell Makerpurchase order checker [facility] Dept of Gastroenterology and Hepatology documented in this encounter [facility] 08-27-2021 History of Present illness Narrative y documented in this encounter [facility] Evaluation + Plan note No data available for this section [facility] Diagnosis Abnormal results of liver function studies Nonspecific abnormal results of liver function study [facility] Diagnosis Dyspnea, unspecified type- Primary Mild intermittent asthma without complication Unspecified asthma ASD (atrial septal defect) Ostium secundum type atrial septal defect documented in this encounter [facility] Work Phone: Evaluation note* Diagnosis Fibrocystic disease of both breasts- Primary Axillary adenopathy Enlargement of lymph nodes [facility] No data available for this section [facility] Progress note No data available for this section [facility] Summary Purpose Family History No Family History Records FoundNo Family History Records FoundNo Family History Records FoundNo Family History Records FoundNo Family History Records FoundNo Family History Records Found No data available for this section No Family History Records Found Advance Directives No Advanced Directives Records FoundDocuments on File Type Date Recorded 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 Author Type: Nurse Apparel Sales Associate Type: Anesthesia Procedure Notes Filed: 10/26/2019 3:18 PM Note Text: ANESTHESIOLOGY PROCEDURE NOTE Airway General Information Procedure Start Time/Medication Administration: 10/26/2019 2:59 PM Patient location during procedure: OR Staffing Anesthesiologist: Gato Espinoza TANGLED YARN SPOOL STRAIGHTENER: Desi Guzman) Judy Performed by: ASHLEE Indications and Patient Condition Preoxygenated: yes Difficult Mask: No Indications for airway management: anesthesia anesthesia circuit Method: asleep Final Airway Details Final airway type: endotracheal airway Final Endotracheal Airway: ETT Cuffed: yes Successful intubation technique: direct laryngoscopy Endotracheal tube insertion site: oral Blade: Monica Blade size: #4 ETT size (mm): 7.0 Measured from: lips Measurement (cm): 21 Placement verified by: capnometry Cormack-Lehane Classification: grade IIb - view of arytenoids or posterior of glottis only Number of attempts at ap (more content not included)... Note HNO ID: [id number] Author: Shena Kim Service: ? Author Type: Nurse Apparel Sales Associate Type: Anesthesia Procedure Notes Filed: 10/26/2019 3:18 PM Note Text: ANESTHESIOLOGY PROCEDURE NOTE Gastric Tube General Information Procedure Start Time/Medication Administration: 10/26/2019 3:01 PM Patient location during procedure: OR Indication: gastric decompression Staffing Anesthesiologist: Gato Espinoza CRNA: Desi Kim Performed by: ASHLEE Procedure Details Type: Orogastric tube Size: 18 Fr cm Distance Advanced: 55 cm Successful Placement: yes Post-Procedure Details Patient tolerated the procedure well with no immediate complications SIGNATURE: Desi Kim APRN.CRNA PATIENT NAME: Michelle Mauricio DATE: October 26, 2019 TIME: 3:17 PM CSN: [id number] Note HNO ID: [id number] Author: Rohith Lyon Service: General Surgery Author Type: Resident Type: Brief Op Note Filed: 10/26/2019 4:28 PM Note Text: BRIEF OPERATIVE / PROCEDURE NOTE LOG ID: [id number] SURGERY/PROCEDURE DATE: 10/26/2019 INCISION/PROCEDURE START TIME: 3:16 PM INCISION CLOSE/PROCEDURE END TIME: 4:19 PM SURGEON(S)/PROCEDURALIST(S) AND EMAIL MARKETER(S): Surgeon(s) and Role: * Marko Almaraz - Primary * Trev Lyon - Resident - Assisting No Additional Staff SURGERY/PROCEDURE(S): Diagnostic laparoscopy, laparoscopic cholecystectomy, liver biopsy ANESTHESIA: General FINDINGS: Diagnostic laparoscopy was negative for any pathology ESTIMATED BLOOD LOSS: 5 mls SPECIMENS: Gallbladder, liver biopsy COMPLICATIONS: None PRE-OP/PRE-PROCEDURE DIAGNOSIS: Acalculous cholecystits POST-OP/POST-PROCEDURE DIAGNOSIS: * No post-op diagnosis entered * SIGNATURE: Trev Lyon MD PATIENT NAME: Michelle Mauricio DATE: October 26, 2019 TIME: 4:25 PM PAGER/CONTACT #: [phone] Reason for Referral Specialty Diagnoses / Procedures Referred By Contac t Referred To Contact CT IMAGING Diagnoses Abnormal results of liver function studies Procedures CT LIVER W IVCON [place] ABDOMEN W/[place] [address] [place] [address] Ct Imaging Referral ID Status Reason Start Date Expiration Date Visits Requested Visits Authorized [id number] Authorized Auto-Generat ed Referral 08/27/2021 09/26/2022 1 1 Referral ID Status Reason Start Date Expiration Date V isits Requested Visits Authorized [id number] Closed Auto-Generate d Referral 08/27/2021 09/26/2022 1 1 Additional Source Comments INFORMATION SOURCE (unrecogn ized section and content) DATE CREATED AUTHOR AUTHOR'S ORGANIZ ATION 12/07/2019 [facility] DATE CREATED AUTHOR AUTHOR'S ORGANIZ ATION 04/25/2020 [facility] DATE CREATED AUTHOR AUTHOR'S ORGANIZ ATION 12/12/2021 [facility] DATE CREATED AUTHOR AUTHOR'S ORGANIZ ATION 07/01/2022 [facility] DATE CREATED AUTHOR AUTHOR'S ORGANIZ ATION 11/30/2022 [facility] DATE CREATED AUTHOR AUTHOR'S ORGANIZ ATION 12/22/2022 [facility] ([place]) Source Comments (unrecognize d section and content) In the event this informatio n is protected by the Federal Confidentiality of Alcohol and Drug Abuse Patient Records regulations: The Federal rules restrict any use of the information to criminally investigate or prosecute any alcohol or drug abuse patient.[facility] the event this information is protected by the Federal Confidentiality of Alcohol and Drug Abuse Patient Records regulations: The Federal rules restrict any use of the information to criminally investigate or prosecute any alcohol or drug abuse patient.[facility] the event this information is protected by the Federal Confidentiality of Alcohol and Drug Abuse Patient Records regulations: The Federal rules restrict any use of the information to criminally investigate or prosecute any alcohol or drug abuse patient.[facility] the event this information is protected by the Federal Confidentiality of Alcohol and Drug Abuse Patient Records regulations: The Federal rules restrict any use of the information to criminally investigate or prosecute any alcohol or drug abuse patient.[facility] Reason for Visit (unrecogniz ed section and content) Reason Comments Radiology CT Specialty Diagnoses / Procedures Referred By Lucy t Referred To Contact CT IMAGING Diagnoses Abnormal results of liver function studies Procedures CT LIVER W IVCON [place] ABDOMEN W/[place] [address] [place] [address] Ct Imaging Referral ID Status Reason Start Date Expiration Date V isits Requested Visits Authorized [id number] Closed Auto-Generate d Referral 08/27/2021 09/26/2022 1 1 Reason Comments Shortness of Breath Pt c/o SOB x1 month. Pt states she feels really weak when she is doing activity. Even talking gets her SOB. Pt states she is having chest pain. Pt states she had a baby 6 months ago. States she feels like she is going to pass out. Fatigue Reason Comments New Patient Eval for axillary ma ss Care Teams (unrecognized sec tion and content) Primary Counselor Relationship Specialty Start Date End Date Gato Lujan [address] [place] [address] PCP - General Family Practice 10/10/19 Primary Counselor Relationship Specialty Start Date End Date Gato Lujan [address] [place], [place] [address] PCP - General Family Practice 10/10/19 Primary Counselor Relationship Specialty Start Date End Date Gato Lujan MD PCP - General Family Medicine 11/01/19 Primary Counselor Relationship Specialty Start Date End Date Gato Lujan MD PCP - General Family Medicine 11/01/19 Primary Counselor Relationship Specialty Start Date End Date Gato Lujan [address] [facility] [address] [place] [address] PCP - General Family Medicine 10/10/19 Primary Counselor Relationship Specialty Start Date End Date Gato Lujan MD [address] [facility] [address] [place] [address] PCP - General 11/01/19 Scheduled Active and Recently Administ ered Medications (unrecognized section and content) PRN Medication Order 11/25/2021 11/26/2021 11/27/2021 0.9 % sodium chloride infusion IntraVENous, at 5-250 mL/hr, PRN, if patient receiving piggyback infusions and maintenance fluids are not ordered OR KVO fluids to protect IV site / prevent frequent line interruptions/ long duration, Starting on Thu11/26/21 at 0542, For piggyback infusion, administer at same rate as piggyback for a total of 25 mL. Enter 25 mL into dose field and piggyback rate into rate field of order. If piggyback is infusing at a rate less than 100 mL/hr, enter 25 mL into dose field and 100 mL/hr into rate field of order. For KVO fluids, enter rate of 20 mL/hr or less into rate field of order. 0.9 % sodium chloride infusion IntraVENous, at 5-250 mL/hr, PRN, if patient receiving piggyback infusions and maintenance fluids are not ordered OR KVO fluids to protect IV site / prevent frequent line interruptions/ long duration, Starting on Thu11/26/21 at 0835, For piggyback infusion, administer at same rate as piggyback for a total of 25 mL. Enter 25 mL into dose field and piggyback rate into rate field of order. If piggyback is infusing at a rate less than 100 mL/hr, enter 25 mL into dose field and 100 mL/hr into rate field of order. For KVO fluids, enter rate of 20 mL/hr or less into rate field of order. acetaminophen (TYLENOL) suppository 650 mg(Linked Group 1) 650 mg, Rectal, EVERY 6 HOURS PRN, Starting on Thu11/26/21 at 0835, Until Discontinued, Pain Mild (1-3), Fever, For temp greater than 100.4 F (38 C), Administer if oral route cannot be used. acetaminophen (TYLENOL) tablet 650 mg(Linked Group 1) 650 mg, Oral, EVERY 6 HOURS PRN, Starting on Thu11/26/21 at 0835, Until Discontinued, Pain Mild (1-3), Fever, For temp greater than 100.4 F (38 C), Maximum dose of acetaminophen is 4000 mg from all sources in 24 hours. albuterol (PROVENTIL) nebulizer solution 2.5 mg 2.5 mg, Nebulization, EVERY 4 HOURS PRN, Starting on Thu11/26/21 at 0543, Until Discontinued, Wheezing, Shortness of Breath, Initiate RT Bronchodilator Protocol: Yes - Inpatient Protocol albuterol sulfate HFA (PROVENTIL;VENTOLIN;PROAIR) 108 (90 Base) MCG/ACT inhaler 1 puff 1 puff, Inhalation, EVERY 4 HOURS PRN, Starting on Thu11/26/21 at 0831, Until Discontinued, Wheezing, Initiate RT Bronchodilator Protocol: No ondansetron (ZOFRAN) injection 4 mg(Linked Group 2) 4 mg, IntraVENous, EVERY 6 HOURS PRN, Starting on Thu11/26/21 at 0835, Until Discontinued, Nausea, Vomiting, Administer if oral route cannot be used. 1621 (Given - Provider: Richa Alvarez RN) 0343 (Given - Provider: Twila Gray RN) ondansetron (ZOFRAN-ODT) disintegrating tablet 4 mg(Linked Group 2) 4 mg, Oral, EVERY 8 HOURS PRN, Starting on Thu11/26/21 at 0835, Until Discontinued, Nausea, Vomiting 1621 (See Alternative - Provider: Richa Alvarez RN) 0343 (See Alternative - Provider: Twila Gray RN) polyethylene glycol (GLYCOLAX) packet 17 g 17 g, Oral, DAILY PRN, Starting on Thu11/26/21 at 0835, Until Discontinued, Constipation, First line therapy for constipation sodium chloride flush 0.9 % injection 5-40 mL 5-40 mL, IntraVENous, PRN, Starting on Thu11/26/21 at 0542, Until Discontinued, Line Care, After every IV line use, For Line Patency: Peripheral IV = 5 mL; Midline or Central Line = 10 mL/lumen. If following IV push medication, administer flush at same rate as the IV push. Flush volume is determined by type of infusion therapy being given. For non-viscous solutions use: Peripheral IV = 5 mL Midline or Central Line = 10 mL/lumen For viscous solutions (i.e. blood components, parenteral nutrition, contrast media, or after obtaining blood sample) use: Peripheral IV = 10 mL Midline or Central Line = 20 mL/lumen sodium chloride flush 0.9 % injection 5-40 mL 5-40 mL, IntraVENous, PRN, Starting on Thu11/26/21 at 0835, Until Discontinued, Line Care, After every IV line use, For Line Patency: Peripheral IV = 5 mL; Midline or Central Line = 10 mL/lumen. If following IV push medication, administer flush at same rate as the IV push. Flush volume is determined by type of infusion therapy being given. For non-viscous solutions use: Peripheral IV = 5 mL Midline or Central Line = 10 mL/lumen For viscous solutions (i.e. blood components, parenteral nutrition, contrast media, or after obtaining blood sample) use: Peripheral IV = 10 mL Midline or Central Line = 20 mL/lumen 1621 (Given - Provider: Richa Alvarez RN) sodium chloride flush 0.9 % injection 5-40 mL 5-40 mL, IntraVENous, PRN, Starting on Thu11/26/21 at 1142, Until Thu11/29/21 at 1141, Line Care, Per Clinical Unit Educator Request, May use order for Line Care after every IV line use and Agitated Saline Bubble Study. Administration for Bubble Study per tipple worker request for only. Remove 1 mL 0.9% sodium chloride from 10 mL syringe for creating agitated saline. If following IV push medication, administer flush at same rate as the IV push. Flush volume is determined by type of infusion therapy being given. , For non-viscous solutions use: Peripheral IV = 5 mL Midline or Central Line = 10 mL/lumen For viscous solutions (i.e. blood components, parenteral nutrition, contrast media, or after obtaining blood sample) use: Peripheral IV = 10 mL Midline or Central Line = 20 mL/lumen Linked Groups Order Group 1: acetaminophen (TYLENOL) tablet 650 mgJump to med 650 mg, Oral, EVERY 6 HOURS PRN, Starting on Thu11/26/21 at 0835, Until Discontinued, Pain Mild (1-3), Fever, For temp greater than 100.4 F (38 C)
Maximum dose of acetaminophen is 4000 mg from all sources in 24 hours.
Or acetaminophen (TYLENOL) suppository 650 mgJump to med 650 mg, Rectal, EVERY 6 HOURS PRN, Starting on Thu11/26/21 at 0835, Until Discontinued, Pain Mild (1-3), Fever, For temp greater than 100.4 F (38 C)
Administer if oral route cannot be used.
Group 2: ondansetron (ZOFRAN-ODT) disintegrating tablet 4 mgJump to med 4 mg, Oral, EVERY 8 HOURS PRN, Starting on Thu11/26/21 at 0835, Until Discontinued, Nausea, Vomiting Or ondansetron (ZOFRAN) injection 4 mgJump to med 4 mg, IntraVENous, EVERY 6 HOURS PRN, Starting on Thu11/26/21 at 0835, Until Discontinued, Nausea, Vomiting
Administer if oral route cannot be used.
FOR RECORDS PERTAINING TO PATIENTS WHO ARE OR HAVE BEEN ENROLLED IN A CHEMICAL DEPENDENCY/SUBSTANCEABUSE PROGRAM, SOME INFORMATION MAY BE OMITTED. This clinical summary was aggregated from multiple sources. Caution should be exercised in using it in the provision of clinical care. This summary normalizes information from multiple sources, and as a consequence, information in this document may materially change the coding, format and clinical context of patient data. In addition, data may be omitted in some cases. CLINICAL DECISIONS SHOULD BE BASED ON THE PRIMARY CLINICAL RECORDS. [facility]. provides no warranty or guarantee of the accuracy or completeness of information in this document.
[2023-02-20 18:13] LABS: Erythrocyte Sedimentation Rate < 1 mm/hr (0-30)
[2023-02-20 18:20] LABS: AST(SGOT) 17 U/L (15-37); Alanine Aminotransfer ALT/SGPT 18 U/L (13-56); Albumin, Serum 3.5 g/dL (3.2-5.0); Alkaline Phosphatase 66 U/L (45-117); Anion Gap 3 (5-15); BUN 10 mg/dL (7-18); BUN/Creat Ratio 13.9 RATIO (10-20); Calcium,Total 8.4 mg/dL (8.5-10.1); Chloride 110 mmol/L (98-107); Creatinine, Serum 0.72 mg/dL (0.55-1.02); EST Glomerular Filtration Rate 96 mL/min (>60); Est Glom Filt Rate - Afr Amer 117 mL/min (>60); Globulin 3.6 g/dL (2.2-4.2); Glucose 81 mg/dL (74-106); Potassium 3.6 mmol/L (3.5-5.1); Protein, Total 7.1 g/dL (6.4-8.2); Sodium Level 141 mmol/L (136-145)
[2023-02-20 18:55] LABS: Vitamin D,25 Hydroxy 33.9 ng/mL
[2023-02-23 09:32] LABS: PTHIN 94.6 pg/mL (18.4-80.1)
== END | disposition home or self-care (01) ==
LOC: MTLAB 15:55
PROVIDERS: PCP Family Medicine; Referring Provider Family Medicine; Visit Provider Family Medicine
DX: E34.9 Endocrine disorder, unspecified (principal)
CPT/HCPCS: 80053; 82306; 83970; 85652

== ENCOUNTER → 2023-03-07 | Outpatient (CLI) | payer OTHER, SELFPAY ==
--- OUTSIDE RECORDS SUMMARY | 2023-03-07 10:23 | XMS RPT_ITS | CCD ---
Author Name Unknown Address [address] [place] [address] Organization [facility] Care Team Providers Care Radiology Asst Name Role Phone Gato Lujan Primary Care Provider ROCIO ESPINO N Attending Raudel Alexander Primary Care Unavailable PROVIDER, UNKNOWN Referring Unavailable Raudel Nowak Primary Care Unavailable Mario Bell Attending Unavailable PROVIDER, UNKNOWN Referring Unavailable Gato Lujan MD Primary Care Provider Gato Lujan Primary Care Provider Gato Lujan MD Primary Care Provider ROCIO [...] [AMOXICILLIN] Drug Allergy 7 Shortness of Breath [facility] (9 sources) Cephalexin; Translations: [CEPHALEXIN] Drug Allergy [address] [facility] (9 sources) Doxycycline; Translations: [DOXYCYCLINE] Drug Allergy 6 Shortness of Breath, Nausea And Vomiting, Nausea and vomiting (disorder) [facility] (6 sources) Piperacillin; Translations: [PIPERACILLIN] Drug Allergy 7 Anaphylaxis, Anaphylactoid reaction (disorder) [facility] (6 sources) tazobactam; Translations: [TAZOBACTAM] Drug Allergy [address] [facility] (9 sources) traMADol; Translations: [TRAMADOL] Drug Allergy 6 Vomiting, Nausea And Vomiting, Rash [facility] (9 sources) Vancomycin; Translations: [VANCOMYCIN] Drug Allergy 7 Anaphylaxis, Facial swelling (finding) [facility] (2 sources) Bee pollen Drug Allergy 8 [employer] Work Phone: (3 sources) Penicillins Propensity to adverse reactions to drug 7 [facility]axis [facility] (2 sources) Piperacillin Sod-Tazobactam So Propensity to adverse reactions to drug 0 [employer] Work Phone: (1 source) Bee pollen Propensity to adverse reactions 8 Pain Doctor (1 source) Piperacillin / tazobactam Drug Allergy 6 Anaphylaxis [facility] [email or web address] Medications Current Medications Medication Drug Class(es) Dates Sig (Normalized) Sig (Original) Acetaminophen (1 source) Start: 11-26-2021 acetaminophen (TYLENOL) tablet 650 mg albuterol MDI (90 mcg/inh) CFC free inhalation aerosol (1 source) Start: 11-02-2018 albuterol MDI (90 mcg/inh) CFC free inhalation aerosol See Instructions, # 8.5 inhaler, Refill #: 12 Total Refills: 12, TAKE 2 PUFFS BY MOUTH EVERY 4 HOURS NEEDED, [facility]/pharmacy #[id number] Start Date: 11/02/18 Status: Ordered aspirin 81 [...] Drug Class(es) Dates Sig (Normalized) Sig (Original) [id number] 200 actuat albuterol 0.09 mg/actuat metered dose [...] 172.7 cm Danie Lott MD Work Phone: [facility] [email or web address] 06-30-2022 14:03-0400 Body mass index (BMI) [Ratio] 28.13 kg/m2 Danie Lott MD Work Phone: [facility] [email or web address] 06-30-2022 14:03-0400 Body temperature 98.1 [degF] Danie Lott MD Work Phone: [facility] 06-30-2022 14:03-0400 Body weight 83.92 kg Danie Lott MD Work Phone: [facility] 06-30-2022 14:03-0400 Diastolic blood pressure 80 mm[Hg] Danie Lott MD Work Phone: [facility] 06-30-2022 14:03-0400 Heart rate 70 /min Danie Lott MD Work Phone: [facility] 06-30-2022 14:03-0400 Systolic blood pressure 129 mm[Hg] Danie Lott MD Work Phone: [facility] [email or web address] 11-27-2021 11:08-0400 Body temperature 97.59 [degF] Conor Treviño MD Work Phone: [facility] 11-27-2021 11:08-0400 Diastolic blood pressure 73 mm[Hg] Conor Treviño MD Work Phone: [facility] 11-27-2021 11:08-0400 Heart rate 63 /min Conor Treviño MD Work Phone: [facility] 11-27-2021 11:08-0400 Respiratory rate 18 /min Conor Treviño MD Work Phone: [facility] 11-27-2021 11:08-0400 SaO2% (BldA) [Mass fraction] 99 % Conor Treviño MD Work Phone: [facility] 11-27-2021 11:08-0400 Systolic blood pressure 123 mm[Hg] Conor Treviño MD Work Phone: [facility] 11-27-2021 09:02-0400 Body mass index (BMI) [Ratio] 27.4 kg/m2 Conor Treviño MD Work Phone: [facility] 11-27-2021 09:02-0400 Body weight 81.74 kg Conor Treviño MD Work Phone: [facility] 11-25-2021 13:39-0400 Body height 172.7 cm Conor Treviño MD Work Phone: [facility] 08-27-2021 11:18-0400 Body weight 83.01 kg Minesh Cottrell MD Work Phone: [facility] 08-27-2021 11:18-0400 Diastolic blood pressure 79 mm[Hg] Minesh Cottrell MD Work Phone: [facility] 08-27-2021 11:18-0400 Heart rate 64 /min Minesh Cottrell MD Work Phone: [facility] 08-27-2021 11:18-0400 Systolic blood pressure 121 mm[Hg] Minesh Cottrell MD Work Phone: [facility] Encounters Encounter Date Encounter Type Care Provider Facility Start: 12-17-2022 End: 12-22-2022 ambulatory BUSHRA GRAYSON MD Facility:B Start: 12-17-2022 End: 12-21-2022 Outreach Lab BUSHRA GRAYSON MD [facility] Start: 11-28-2022 End: 11-28-2022 ambulatory AROLDO MIRAMONTES Facility:[facility] Start: 06-30-2022 End: 06-30-2022 [facility] Start: 06-30-2022 End: 06-30-2022 Office outpatient new 30 minutes Danie Lott MD Work Phone: [facility] General Surgery Procedures Date Procedure Procedure Detail [...] metabolic pane l calcium total Jovanna Say FLOORWALKER - I O PSYCHOLOGIST Work Phone: Start: 11-26-2021 Lipid panel Jovanna ferreira FLOORWALKER - I O PSYCHOLOGIST Work Phone: Start: 11-26-2021 COVID-19 Nahun Gomez MD Work Phone: Start: 11-25-2021 Ct angiography chest w/contrast/noncontrast Conor Treviño MD Work Phone: Start: 11-25-2021 ADD ON LAB TEST Nahun Gomez MD Work Phone: Start: 11-25-2021 Radiologic exam ches t single view Conro Treviño MD Work Phone: Start: 11-25-2021 Basic [...] 10-17-2022 Influenza vaccination Influenza Vaccine (Season Ended) [facility] Start: 10-17-2021 Influenza vaccination INFLUENZA (#1) [facility] Start: 09-16-2021 Influenza vaccination Flu vaccine (#1) [facility] Start: 02-16-2021 DEPRESSION ASSESSMENT DEPRESSION ASSESSMENT [facility] Start: 06-02-2019 DTaP/Tdap/Td vaccine (7 - Td or Tdap) DTaP/Tdap/Td vaccine (7 - Td or Tdap) [facility] Start: 06-02-2019 DTaP/Tdap/Td Vaccines (7 - Td or Tdap) DTaP/Tdap/Td Vaccines (7 - Td or Tdap) [facility] Start: 06-18-2018 Pneumococcal 0-64 years Vaccine (2 - PCV) Pneumococcal 0-64 years Vaccine (2 - PCV) [facility] Start: 06-18-2018 Pneumococcal Vaccine: Pediatrics (0 to 5 Years) and At-Risk Patients (6 to 64 Years) (3 - PCV) Pneumococcal Vaccine: Pediatrics (0 to 5 Years) and At-Risk Patients (6 to 64 Years) (3 - PCV) [facility] Start: 2014 HPV TESTING HPV TESTING [facility] Start: 2014 Screening for malignant neoplasm of cervix [facility] Start: 03-13-2012 Hepatitis A Vaccines (2 of 2 - Risk 2-dose series) Hepatitis A Vaccines (2 of 2 - Risk 2-dose series) [facility] Start: 01-19-2009 Varicella vaccination Varicella Vaccines (1 of 2 - 2-dose childhood series) [facility] Start: 01-19-2009 Varicella vaccine (1 of 2 - 2-dose childhood series) Varicella vaccine (1 of 2 - 2-dose childhood series) [facility] Start: 2005 PAP TESTING PAP TESTING [facility] Start: 2005 Screening for malignant neoplasm of cervix Pap smear [facility] Start: 12-11-2003 SHINGRIX VACCINE (1 of 2) SHINGRIX VACCINE (1 of 2) [facility] Start: 12-11-2003 Urine microalbumin profile DTAP,TDAP,TD (1 - Tdap) [facility] Start: 12-11-2003 Zoster Vaccines (1 of 2) Zoster Vaccines (1 of 2) [facility] Start: 2002 ANNUAL PCP TEAM CHRONIC DISEASE VISIT ANNUAL PCP TEAM CHRONIC DISEASE VISIT [facility] Start: 2002 Hepatitis C screening Hepatitis C Screening [facility] Start: 2002 HIV SCREENING HIV SCREENING [facility] Start: 2002 SPIROMETRY SPIROMETRY [facility] Start: 12-11-1999 HIV screening [facility] screen [facility] Start: 1996 Adult depression screening assessment DEPRESSION SCREENING [facility] Start: 1996 Depression Screen Depression Screen [facility] Start: 1990 PNEUMOCOCCAL (1 - PCV) PNEUMOCOCCAL (1 - PCV) [facility] Start: 1989 COVID-19 VACCINE (#1) COVID-19 VACCINE (#1) [facility] Start: 06-10-1985 COVID-19 Vaccine (#1) COVID-19 Vaccine (#1) [facility] Start: 1984 HEPATITIS B (1 of 3 - 3-dose series) HEPATITIS B (1 of 3 - 3-dose series) [facility] Start: 1984 HIV screening HIV Screening [facility] End: 11-25-2021 Brain Natriuretic Peptide Brain Natriuretic Peptide Lab Add-On One Time for 1 Occurrences starting 11/25/2021 until 11/25/2021 [facility] Work Phone: Immunizations Immunization Date Immunization Notes Care Provider Fa jeremiah 12-25-2017 influenza virus vacc ine, unspecified formulation Danie Lott MD Work Phone: [facility] 06-18-2017 pneumococcal polysaccharide vaccine, 23 valent BUSHRA GRAYSON MD [facility] 01-25-2015 influenza virus vacc ine, unspecified formulation BUSHRA GRAYSON MD [facility] 11-16-2013 influenza virus vacc ine, unspecified formulation BUSHRA GRAYSON MD [facility] 11-02-2013 pneumococcal polysaccharide vaccine, 23 valent BUSHRA GRAYSON MD [facility] 03-12-2012 influenza virus vacc ine, unspecified formulation BUSHRA GRAYSON MD [facility] 09-11-2011 hepatitis A vaccine, adult dosage BUSHRA GRAYSON MD [facility] 09-11-2011 hepatitis A and hepatitis B vaccine Danie Lott MD Work Phone: [facility] 06-01-2009 tetanus toxoid, redu kenzie diphtheria toxoid, and acellular pertussis vaccine, adsorbed BUSHRA GRAYSON MD [facility] 01-25-2007 Human Papillomavirus Quadval BUSHRA GRAYSON MD [facility] 02-04-2006 Human Papillomavirus Quadval BUSHRA GRAYSON MD [facility] 11-28-2005 Human Papillomavirus Quadval BUSHRA GRAYSON MD [facility] 04-19-2004 hepatitis B pediatri c vaccine BUSHRA GRAYSON MD [facility] 11-20-2003 hepatitis B pediatri c vaccine BUSHRA GRAYSON MD [facility] 10-20-2003 hepatitis B pediatri c vaccine BUSHRA GRAYSON MD [facility] 10-20-2003 tetanus and diphther ia toxoids, adsorbed, preservative free, for adult use (5 Lf of tetanus toxoid and 2 Lf of diphtheria toxoid) BUSHRA GRAYSON MD [facility] 09-01-1990 diphtheria, tetanus toxoids and acellular pertussis vaccine, unspecified formulation BUSHRA GRAYSON MD [facility] 09-01-1990 poliovirus vaccine, inactivated BUSHRA GRAYSON MD [facility] 04-29-1988 diphtheria, tetanus toxoids and acellular pertussis vaccine, unspecified formulation BUSHRA GRAYSON MD [facility] 04-29-1988 poliovirus vaccine, inactivated BUSHRA GRAYSON MD [facility] 11-26-1987 diphtheria, tetanus toxoids and acellular pertussis vaccine, unspecified formulation BUSHRA GRAYSON MD [facility] 09-03-1987 diphtheria, tetanus toxoids and acellular pertussis vaccine, unspecified formulation BUSHRA GRAYSON MD [facility] 09-03-1987 measles/mumps/rubell a virus vaccine BUSHRA GRAYSON MD [facility] 09-03-1987 poliovirus vaccine, inactivated BUSHRA GRAYSON MD [facility] 12-14-1985 diphtheria, tetanus toxoids and acellular pertussis vaccine, unspecified formulation BUSHRA GRAYSON MD [facility] 12-14-1985 poliovirus vaccine, inactivated BUSHRA GRAYSON MD [facility] Payers Date Payer Category Payer Unknown [id number] 2015 Private Health Insurance [employer] A ETNA CHOICE POS II [id number] 2015-Present [phone] [address] [place] [address] POS [id number] 2014 Private Health Insurance [id number] 2014 Private Health Insurance 1984 Unknown [id number] 1984 Unknown [id number] 1984 Unknown [id number] Social History Date Type Detail Facility Start: 03-13-2016 End: 06-11-2017 Tobacco smoking status NHIS Ex-smoker [facility] End: 02-17-2004 History of tobacco use Current smoker [facility] End: 02-17-2004 History of tobacco use Cigarette Smoker [facility] Start: 03-13-2016 End: 06-30-2022 Cigarettes smoked current (pack per day) - Reported 0.[address] [facility] Start: 03-13-2016 End: 06-11-2017 Tobacco use and exposure Smokeless tobacco non-user [facility] Start: 08-27-2021 Alcohol intake Ex-drinker (finding) [facility] Start: 06-11-2017 History SDOH Alcohol Comment Occasionally; once a week [facility] Start: 1984 Sex Assigned At Not on file [facility] Start: 02-15-2019 End: 04-25-2019 Tobacco smoking status [facility] Never smoked tobacco [facility] Work Phone: Clinical [...] Locations *1: This test was performed at: [address] , [facility] ([place]) 11-28-2022 Note HNO ID: [id number] Author: Melissa Langley RT(R) Service: ? Author Type: Orthopaedic Surgeon Type: Progress Notes Filed: 11/28/2022 4:11 PM [...] DEPARTMENT: CT; Exam(s) Completed: Abdomen/Pelvis SIGNATURE: RT Rosa(R) PATIENT NAME: Michelle Mauricio DATE: November 28, 2022 TIME: 4:10 PM [facility] 06-30-2022 Note This 36-year-old fem grace, G5, P3, was referred for breast evaluation. She states she has a 50-wshdv-fvt and continues to breast-feed. She has been [...] adenopathy, either side. Imaging was done in [place] and was not available for review. Impression: Probable discomfort due to lactational changes in tail of breast with a reactive axillary lymph node. Plan: Continue close observation with frequent self exams. Trial of diclofenac gel to left axilla. Agree with follow-up left axillary ultrasound. She will notify us should she have a change in self-exam in the interim. [facility] 06-30-2022 History of Present illness Narrative This 36-year-old female, G5, P3, was referred for breast evaluation. She states she has a 09-[id number]-eba and continues to breast-feed. She has been [...] adenopathy, either side. Imaging was done in [place] and was not available for review. Impression: Probable discomfort due to lactational changes in tail of breast with a reactive axillary lymph node. Plan: Continue close observation with frequent self exams. Trial of diclofenac gel to left axilla. Agree with follow-up left axillary ultrasound. She will notify us should she have a change in self-exam in the interim. documented in this encounter [facility] 02-06-2022 Note HNO ID: [id number] Author: RT Maria T(R) Service: ? Author Type: Orthopaedic Surgeon Type: Progress Notes Filed: 02/06/2022 9:42 AM [...] DATE: February 06, 2022 TIME: 9:41 AM [facility] 11-27-2021 History of Present illness Narrative Nutrition rescreen completed. Chart reviewed. Patient to be monitored and followed by the diet fork lift technician. Tatum Ibarra, DT CARDIOLOGY PROGRESS NOTE [...] and will follow locally with her local police chief and deputy general counsel for further evaluation and treatment. I reviewed my assessment and plan with Michelle Mauricio . All questions were answered. Addendum: will arrange CPET and F/U with me after CPET. Cardiology will sign off. NOTE: This report was transcribed using voice recognition software. Every effort was made to ensure accuracy; however, inadvertent computerized recreational aide errors may be present. Electronicallysigned by Rocio [...] results of echo. Work up done at [facility], we do not have a shared record, [...] after testing. She should f/u with her deputy general counsel as well. See discharge diagnoses list above [...] MD Chapo Mueller (more content not included)... [facility] 09-12-[address] showed enlarged liver with stable hemangioma. No evidence of advanced liver disease. Prior liver biopsy was unremarkable. No need for further work up No need for further work up Minesh Cottrell MD Dr. Cottrell, please review CT liver and advise. Thank you, Shara Acosta RN documented in this encounter [facility] 09-11-2021 History of Present illness Narrative [...] TIME: 12:02 PM documented in this encounter [facility] 08-27-2021 History and physical note Hepatology [...] Lymph 1.00 - 4.00 k/uL 2.11 1.67 [place]% % 6.6 8.5 Abs [place] <0.87 k/uL 0.54 0.44 E[place]% % 1.0 [...] to further evaluate hepatomegaly Minesh Cottrell MD Flexible Shaft Winderthermite bomb loader [facility] Dept of Gastroenterology and Hepatology documented in this encounter [facility] 08-27-2021 History of Present illness Narrative y documented in this encounter [facility] Evaluation + Plan note No data available for this section [facility] Diagnosis Abnormal results of liver function studies Nonspecific abnormal results of liver function study [facility] Diagnosis Dyspnea, unspecified type- Primary Mild intermittent asthma without complication Unspecified asthma ASD (atrial septal defect) Ostium secundum type atrial septal defect documented in this encounter [facility] Work Phone: Evaluation note* Diagnosis Fibrocystic disease of both breasts- Primary Axillary adenopathy Enlargement of lymph nodes documented in this encounter [facility] Discharge instructions No data available for this section [facility] Progress note No data available for this section [facility] Summary Purpose Family History No Family History Records FoundNo Family History Records FoundNo Family History Records FoundNo Family History Records FoundNo Family History Records FoundNo Family History Records Found No data available for this section No Family History Records Found Advance Directives No Advanced Directives Records FoundDocuments on File Type Date Recorded 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 Author Type: Nurse Ward Nurse Type: Anesthesia Procedure Notes Filed: 10/26/2019 3:18 PM Note Text: ANESTHESIOLOGY PROCEDURE NOTE Airway General Information Procedure Start Time/Medication Administration: 10/26/2019 2:59 PM Patient location during procedure: OR Staffing Anesthesiologist: Gato Espinoza DISCHARGE DOOR OPERATOR: Desi Guzman) Judy Performed by: ASHLEE Indications [...] (more content not included)... Note HNO ID: [id number] Author: Shena Kim Service: ? Author Type: Nurse Ward Nurse Type: Anesthesia Procedure Notes Filed: 10/26/2019 3:18 [...] October 26, 2019 TIME: 3:17 PM CSN: [id number] Note HNO ID: [id number] Author: Rohith Lyon Service: General Surgery Author Type: Resident Type: Brief Op Note Filed: 10/26/2019 4:28 PM Note Text: BRIEF OPERATIVE / PROCEDURE NOTE LOG ID: [id number] SURGERY/PROCEDURE DATE: 10/26/2019 INCISION/PROCEDURE START TIME: 3:16 PM INCISION CLOSE/PROCEDURE END TIME: 4:19 PM SURGEON(S)/PROCEDURALIST(S) AND STEREO EQUIPMENT INSTALLER(S): Surgeon(s) and Role: * Marko Almaraz - [...] 26, 2019 TIME: 4:25 PM PAGER/CONTACT #: [phone] Reason for Referral Specialty Diagnoses / Procedures Referred By Contac t Referred To Contact CT IMAGING Diagnoses Abnormal results of liver function studies Procedures CT LIVER W IVCON [place] ABDOMEN W/[place] [address] [place] [address] Ct Imaging Referral ID Status Reason Start Date Expiration Date Visits Requested Visits Authorized [id number] Authorized Auto-Generat ed Referral 08/27/2021 09/26/2022 1 1 Referral ID Status Reason Start Date Expiration Date V isits Requested Visits Authorized [id number] Closed Auto-Generate d Referral 08/27/2021 09/26/2022 1 1 Additional Source Comments INFORMATION SOURCE (unrecogn ized section and content) DATE CREATED AUTHOR AUTHOR'S ORGANIZ ATION 12/07/2019 [facility] DATE CREATED AUTHOR AUTHOR'S ORGANIZ ATION 04/25/2020 [facility] DATE CREATED AUTHOR AUTHOR'S ORGANIZ ATION 12/12/2021 [facility] DATE CREATED AUTHOR AUTHOR'S ORGANIZ ATION 07/01/2022 [facility] DATE CREATED AUTHOR AUTHOR'S ORGANIZ ATION 11/30/2022 [facility] DATE CREATED AUTHOR AUTHOR'S ORGANIZ ATION 12/22/2022 [facility] ([place]) Source Comments (unrecognize d section and content) In the event this informatio n is protected by the Federal Confidentiality of Alcohol and Drug Abuse Patient Records regulations: The Federal rules restrict any use of the information to criminally investigate or prosecute any alcohol or drug abuse patient.[facility] the event this information is protected by the Federal Confidentiality of Alcohol and Drug Abuse Patient Records regulations: The Federal rules restrict any use of the information to criminally investigate or prosecute any alcohol or drug abuse patient.[facility] the event this information is protected by the Federal Confidentiality of Alcohol and Drug Abuse Patient Records regulations: The Federal rules restrict any use of the information to criminally investigate or prosecute any alcohol or drug abuse patient.[facility] the event this information is protected by the Federal Confidentiality of Alcohol and Drug Abuse Patient Records regulations: The Federal rules restrict any use of the information to criminally investigate or prosecute any alcohol or drug abuse patient.[facility] Reason for Visit (unrecogniz ed section and content) Reason Comments Radiology CT Specialty Diagnoses / Procedures Referred By Lucy t Referred To Contact CT IMAGING Diagnoses Abnormal results of liver function studies Procedures CT LIVER W IVCON CT ABDOMEN W/[place] [address] [place] [address] Ct Imaging Referral ID Status Reason Start Date Expiration Date V isits Requested Visits Authorized [id number] Closed Auto-Generate d Referral 08/27/2021 09/26/2022 1 [...] Care Teams (unrecognized sec tion and content) Radiology Asst Relationship Specialty Start Date End Date Gato Lujan [address] [place] [address] PCP - General Family Practice 10/10/19 Radiology Asst Relationship Specialty Start Date End Date Gato Lujan [address] [place], [place] [address] PCP - General Family Practice 10/10/19 Radiology Asst Relationship Specialty Start Date End Date Gato Lujan MD PCP - General Family Medicine 11/01/19 Radiology Asst Relationship Specialty Start Date End Date Gato Lujan MD PCP - General Family Medicine 11/01/19 Radiology Asst Relationship Specialty Start Date End Date Gato Lujan [address] [facility] [place] [address] PCP - General Family Medicine 10/10/19 Radiology Asst Relationship Specialty Start Date End Date Gato Lujan MD [address] [facility] [address] [place] [address] PCP - General 11/01/19 Scheduled [...] Until Thu11/29/21 at 1141, Line Care, Per District Court Judge Request, May use order for Line Care after every IV line use and Agitated Saline Bubble Study. Administration for Bubble Study per ammonia box tender request for only. Remove 1 mL 0.9% [...] BE BASED ON THE PRIMARY CLINICAL RECORDS. [employer] [facility]. provides no warranty or guarantee of the accuracy or completeness of information in this document.
[2023-03-07 10:38] LABS: Ionized Calcium 4.91 mg/dL (4.36-5.20)
[2023-03-07 10:40] LABS: Erythrocyte Sedimentation Rate 1 mm/hr (0-30)
== END | disposition home or self-care (01) ==
LOC: LAB 10:18
PROVIDERS: PCP Family Medicine; Referring Provider Family Medicine; Visit Provider Family Medicine
DX: E34.9 Endocrine disorder, unspecified (principal); R51.9 Headache, unspecified
CPT/HCPCS: 36415; 82330; 85652

== ENCOUNTER → 2023-04-16 | Outpatient (CLI) | payer OTHER, SELFPAY ==
--- NOTE | 2023-04-16 10:53 | ECHOD_ITS ---
Reason For Study: ASD/PFO Procedure This was a 2D Doppler, Color Flow transthoracic echocardiogram. Exam performed in department. Left Ventricle Normal LV size. Left ventricular systolic function is normal. The estimated ejection fraction is 60 %. Normal diastology for age. No regional wall motion abnormalities noted. Right Ventricle Normal RV size. Normal systolic function. Atria Normal left atrium. Normal right atrium. Mitral Valve Normal mitral valve. Tricuspid Valve The tricuspid valve is not well visualized. Mild tricuspid valve insufficiency. Pulmonary artery systolic pressure is 20 mmHg. Aortic Valve Trisinus/trileaflet aortic valve. Pulmonic Valve Normal pulmonic valve. Great Vessels Normal aortic root. The pulmonary artery is normal size. Normal inferior vena cava. Pericardium/Pleural No pericardial effusion. MMode/2D Measurements & Calculations LVIDd: 4.6 cm IVSd: 0.71 cm Ao root diam: 3.0 cm LVIDs: 3.4 cm LVPWd: 0.89 cm RVDd: 3.1 cm FS: 27.7 % LAV(MOD-bp): 36.0 ml LVAd ap4: 29.2 cm2 SV(MOD-sp4): 49.3 ml LAV(MOD-bp) Indexed: 18.0 ml/m2 LVLd ap4: 7.6 cm LAV(MOD-sp2): 36.3 ml EDV(MOD-sp4): 90.7 ml LAV(MOD-sp4): 35.6 ml EDV(sp4-el): 94.6 ml LVAs ap4: 18.2 cm2 LVLs ap4: 6.9 cm ESV(MOD-sp4): 41.4 ml ESV(sp4-el): 40.7 ml EF(MOD-sp4): 54.4 % EF(sp4-el): 57.0 % SV(sp4-el): 53.9 ml LA A4 area: 14.9 cm2 LA dimension(2D): 3.2 cm RA A4 area: 12.1 cm2 TAPSE: 2.4 cm Time Measurements MV dec time: 0.19 sec Doppler Measurements & Calculations MV E max davie: 74.8 cm/sec Lat Peak E' Davie: 14.5 cm/sec Med Peak E' Davie: 10.9 cm/sec MV A max davie: 63.0 cm/sec E/E' lat: 5.2 E/E' med: 6.9 MV E/A: 1.2 Ao V2 max: 145.9 cm/sec LV V1 max: 120.2 cm/sec PA V2 max: 87.2 cm/sec Ao max P.5 mmHg LV V1 max P.8 mmHg TR max davie: 203.7 cm/sec TR max P.6 mmHg ECHO/Echo Complete Interpretation Summary Normal LV size. Left ventricular systolic function is normal. The estimated ejection fraction is 60 %. Normal diastology for age. Structurally normal valves. Ordering Physician: Ness Boland Referring Physician: GATO LUJAN Performed By: Lilly Todd RDCS
--- OUTSIDE RECORDS SUMMARY | 2023-04-16 17:27 | XMS RPT_ITS | CCD ---
Author Name Unknown Address [address] [place] [address] Organization [facility] Care Team Providers Care Incising Machine Operator Name Role Phone Gato Lujan Primary Care Provider [phone] ROCIO ESPINO N Attending Raudel Alexander Primary [...] [AMOXICILLIN] Drug Allergy 7 Shortness of Breath [facility] (9 sources) Cephalexin; Translations: [CEPHALEXIN] Drug Allergy 2 Hives [facility] (9 sources) Doxycycline; Translations: [DOXYCYCLINE] Drug Allergy 6 Shortness of Breath, Nausea And Vomiting, Nausea and vomiting (disorder) [facility] (6 sources) Piperacillin; Translations: [PIPERACILLIN] Drug Allergy 7 Anaphylaxis, Anaphylactoid reaction (disorder) [facility] (6 sources) tazobactam; Translations: [TAZOBACTAM] Drug Allergy 7 Anaphylaxis [facility] (9 sources) traMADol; Translations: [TRAMADOL] Drug Allergy 6 Vomiting, Nausea And Vomiting, Rash [facility] (9 sources) Vancomycin; Translations: [VANCOMYCIN] Drug Allergy 7 Anaphylaxis, Facial swelling (finding) [facility] (2 sources) Bee pollen Drug Allergy 8 Potential Work Phone: (3 sources) Penicillins Propensity to adverse reactions to drug 7 Anaphylaxis [facility] Work Phone: (2 sources) Piperacillin Sod-Tazobactam So Propensity to adverse reactions to drug 0 Potential Work Phone: (1 source) Bee pollen Propensity to adverse reactions 8 [employer] (1 source) Piperacillin / tazobactam Drug Allergy 6 Anaphylaxis [facility] Medications Current Medications Medication Drug Class(es) Dates Sig (Normalized) Sig (Original) Acetaminophen (1 source) Start: 11-26-2021 acetaminophen (TYLENOL) tablet 650 mg albuterol MDI (90 mcg/inh) CFC free inhalation aerosol (1 source) Start: 11-02-2018 albuterol MDI (90 mcg/inh) CFC free inhalation aerosol See Instructions, # 8.5 inhaler, Refill #: 12 Total Refills: 12, TAKE 2 PUFFS BY MOUTH EVERY 4 HOURS NEEDED, [facility]/pharmacy #[id number] Start Date: 11/02/18 Status: Ordered aspirin 81 [...] Drug Class(es) Dates Sig (Normalized) Sig (Original) [id number] 200 actuat albuterol 0.09 mg/actuat metered dose [...] 172.7 cm Danie Lott MD Work Phone: [facility] 06-30-2022 14:03-0400 Body mass index (BMI) [Ratio] 28.13 kg/m2 Danie Lott MD Work Phone: [facility] 06-30-2022 14:03-0400 Body temperature 98.1 [degF] Danie Lott MD Work Phone: [facility] 06-30-2022 14:03-0400 Body weight 83.92 kg Danie Lott MD Work Phone: [facility] 06-30-2022 14:03-0400 Diastolic blood pressure 80 mm[Hg] Danie Lott MD Work Phone: [facility] 06-30-2022 14:03-0400 Heart rate 70 /min Danie Lott MD Work Phone: [facility] 06-30-2022 14:03-0400 Systolic blood pressure 129 mm[Hg] Danie Lott MD Work Phone: [facility] 11-27-2021 11:08-0400 Body temperature 97.59 [degF] Conor Treviño MD Work Phone: [facility] 11-27-2021 11:08-0400 Diastolic blood pressure 73 mm[Hg] Conor Treviño MD Work Phone: [facility] 11-27-2021 11:08-0400 Heart rate 63 /min Conor Treviño MD Work Phone: [facility] 11-27-2021 11:08-0400 Respiratory rate 18 /min Conor Treviño MD Work Phone: [facility] 11-27-2021 11:08-0400 SaO2% (BldA) [Mass fraction] 99 % Conor Treviño MD Work Phone: [facility] 11-27-2021 11:08-0400 Systolic blood pressure 123 mm[Hg] Conor Treviño MD Work Phone: [facility] 11-27-2021 09:02-0400 Body mass index (BMI) [Ratio] 27.4 kg/m2 Conor Treviño MD Work Phone: [facility] 11-27-2021 09:02-0400 Body weight 81.74 kg Conor Treviño MD Work Phone: [facility] 11-25-2021 13:39-0400 Body height 172.7 cm Conor Treviño MD Work Phone: [facility] 08-27-2021 11:18-0400 Body weight 83.01 kg Minesh Cottrell MD Work Phone: [facility] 08-27-2021 11:18-0400 Diastolic blood pressure 79 mm[Hg] Minesh Cottrell MD Work Phone: [facility] 08-27-2021 11:18-0400 Heart rate 64 /min Minesh Cottrell MD Work Phone: [facility] 08-27-2021 11:18-0400 Systolic blood pressure 121 mm[Hg] Minesh Cottrell MD Work Phone: [facility] Encounters Encounter Date Encounter Type Care Provider Facility Start: 12-17-2022 End: 12-22-2022 ambulatory BUSHRA GRAYSON MD Facility:B Start: 12-17-2022 End: 12-21-2022 Outreach Lab BUSHRA GRAYSON MD [facility] Start: 11-28-2022 End: 11-28-2022 ambulatory AROLDO MIRAMONTES Facility:[facility] Start: 06-30-2022 End: 06-30-2022 ambulatory [facility] Start: 06-30-2022 End: 06-30-2022 Office outpatient new 30 minutes Danie Lott MD Work Phone: [facility] General Surgery Procedures Date Procedure Procedure [...] metabolic pane l calcium total Jovanna Say EDUCATION AND DEVELOPMENT MANAGER - BUDGET SPECIALIST Work Phone: Start: 11-26-2021 Lipid panel Jovanna ferreira EDUCATION AND DEVELOPMENT MANAGER - BUDGET SPECIALIST Work Phone: Start: 11-26-2021 COVID-19 Nahun Gomez [...] 10-17-2022 Influenza vaccination Influenza Vaccine (Season Ended) [facility] Start: 10-17-2021 Influenza vaccination INFLUENZA (#1) [facility] Start: 09-16-2021 Influenza vaccination Flu vaccine (#1) [facility] Start: 02-16-2021 DEPRESSION ASSESSMENT DEPRESSION ASSESSMENT [facility] Start: 06-02-2019 DTaP/Tdap/Td vaccine (7 - Td or Tdap) DTaP/Tdap/Td vaccine (7 - Td or Tdap) [facility] Start: 06-02-2019 DTaP/Tdap/Td Vaccines (7 - Td or Tdap) DTaP/Tdap/Td Vaccines (7 - Td or Tdap) [facility] Start: 06-18-2018 Pneumococcal 0-64 years Vaccine (2 - PCV) Pneumococcal 0-64 years Vaccine (2 - PCV) [facility] Start: 06-18-2018 Pneumococcal Vaccine: Pediatrics (0 to 5 Years) and At-Risk Patients (6 to 64 Years) (3 - PCV) Pneumococcal Vaccine: Pediatrics (0 to 5 Years) and At-Risk Patients (6 to 64 Years) (3 - PCV) [facility] Start: 2014 HPV TESTING HPV TESTING [facility] Start: 2014 Screening for malignant neoplasm of cervix [facility] Start: 03-13-2012 Hepatitis A Vaccines (2 of 2 - Risk 2-dose series) Hepatitis A Vaccines (2 of 2 - Risk 2-dose series) [facility] Start: 01-19-2009 Varicella vaccination Varicella Vaccines (1 of 2 - 2-dose childhood series) [facility] Start: 01-19-2009 Varicella vaccine (1 of 2 - 2-dose childhood series) Varicella vaccine (1 of 2 - 2-dose childhood series) [facility] Start: 2005 PAP TESTING PAP TESTING [facility] Start: 2005 Screening for malignant neoplasm of cervix Pap smear [facility] Start: 12-11-2003 SHINGRIX VACCINE (1 of 2) SHINGRIX VACCINE (1 of 2) [facility] Start: 12-11-2003 Urine microalbumin profile DTAP,TDAP,TD (1 - Tdap) [facility] Start: 12-11-2003 Zoster Vaccines (1 of 2) Zoster Vaccines (1 of 2) [facility] Start: 2002 ANNUAL PCP TEAM CHRONIC DISEASE VISIT ANNUAL PCP TEAM CHRONIC DISEASE VISIT [facility] Start: 2002 Hepatitis C screening Hepatitis C Screening [facility] Start: 2002 HIV SCREENING HIV SCREENING [facility] Start: 2002 SPIROMETRY SPIROMETRY [facility] Start: 12-11-1999 HIV screening [facility] screen [facility] Start: 1996 Adult depression screening assessment DEPRESSION SCREENING [facility] Start: 1996 Depression Screen Depression Screen [facility] Start: 1990 PNEUMOCOCCAL (1 - PCV) PNEUMOCOCCAL (1 - PCV) [facility] Start: 1989 COVID-19 VACCINE (#1) COVID-19 VACCINE (#1) [facility] Start: 06-10-1985 COVID-19 Vaccine (#1) COVID-19 Vaccine (#1) [facility] Start: 1984 HEPATITIS B (1 of 3 - 3-dose series) HEPATITIS B (1 of 3 - 3-dose series) [facility] Start: 1984 HIV screening HIV Screening [facility] End: 11-25-2021 Brain Natriuretic Peptide Brain Natriuretic Peptide Lab Add-On One Time for 1 Occurrences starting 11/25/2021 until 11/25/2021 [facility] Work Phone: Immunizations Immunization Date Immunization Notes Care Provider Fa jeremiah 12-25-2017 influenza virus vacc ine, unspecified formulation Danie Lott MD Work Phone: [facility] 06-18-2017 pneumococcal polysaccharide vaccine, 23 valent BUSHRA GRAYSON MD [facility] 01-25-2015 influenza virus vacc ine, unspecified formulation BUSHRA GRAYSON MD [facility] 11-16-2013 influenza virus vacc ine, unspecified formulation BUSHRA GRAYSON MD [facility] 11-02-2013 pneumococcal polysaccharide vaccine, 23 valent BUSHRA GRAYSON MD [facility] 03-12-2012 influenza virus vacc ine, unspecified formulation BUSHRA GRAYSON MD [facility] 09-11-2011 hepatitis A vaccine, adult dosage BUSHRA GRAYSON MD [facility] 09-11-2011 hepatitis A and hepatitis B vaccine Danie Lott MD Work Phone: [facility] 06-01-2009 tetanus toxoid, redu kenzie diphtheria toxoid, and acellular pertussis vaccine, adsorbed BUSHRA GRAYSON MD [facility] 01-25-2007 Human Papillomavirus Quadval BUSHRA GRAYSON MD [facility] 02-04-2006 Human Papillomavirus Quadval BUSHRA GRAYSON MD [facility] 11-28-2005 Human Papillomavirus Quadval BUSHRA GRAYSON MD [facility] 04-19-2004 hepatitis B pediatri c vaccine BUSHRA GRAYSON MD [facility] 11-20-2003 hepatitis B pediatri c vaccine BUSHRA GRAYSON MD [facility] 10-20-2003 hepatitis B pediatri c vaccine BUSHRA GRAYSON MD [facility] 10-20-2003 tetanus and diphther ia toxoids, adsorbed, preservative free, for adult use (5 Lf of tetanus toxoid and 2 Lf of diphtheria toxoid) BUSHRA GRAYSON MD [facility] 09-01-1990 diphtheria, tetanus toxoids and acellular pertussis vaccine, unspecified formulation BUSHRA GRAYSON MD [facility] 09-01-1990 poliovirus vaccine, inactivated BUSHRA GRAYSON MD [facility] 04-29-1988 diphtheria, tetanus toxoids and acellular pertussis vaccine, unspecified formulation BUSHRA GRAYSON MD [facility] 04-29-1988 poliovirus vaccine, inactivated BUSHRA GRAYSON MD [facility] 11-26-1987 diphtheria, tetanus toxoids and acellular pertussis vaccine, unspecified formulation BUSHRA GRAYSON MD [facility] 09-03-1987 diphtheria, tetanus toxoids and acellular pertussis vaccine, unspecified formulation BUSHRA GRAYSON MD [facility] 09-03-1987 measles/mumps/rubell a virus vaccine BUSHRA GRAYSON MD [facility] 09-03-1987 poliovirus vaccine, inactivated BUSHRA GRAYSON MD [facility] 12-14-1985 diphtheria, tetanus toxoids and acellular pertussis vaccine, unspecified formulation BUSHRA GRASYON MD [facility] 12-14-1985 poliovirus vaccine, inactivated BUSHRA GRAYSON MD [facility] Payers Date Payer Category Payer Unknown [id number] 2015 Private Health Insurance [employer]ET[employer] A ETNA CHOICE POS II [id number] 2015-Present [phone] [address] [place] [address] POS [id number] 2014 Private Health Insurance [id number] 2014 Private Health Insurance 1984 Unknown [id number] 1984 Unknown [id number] 1984 Unknown [id number] Social History Date Type Detail Facility Start: 03-13-2016 End: 06-11-2017 Tobacco smoking status NHIS Ex-smoker [facility] End: 02-17-2004 History of tobacco use Current smoker [facility] End: 02-17-2004 History of tobacco use Cigarette Smoker [facility] Start: 03-13-2016 End: 06-30-2022 Cigarettes smoked current (pack per day) - Reported 0.5 [facility] Start: 03-13-2016 End: 06-11-2017 Tobacco use and exposure Smokeless tobacco non-user [facility] Start: 08-27-2021 Alcohol intake Ex-drinker (finding) [facility] Start: 06-11-2017 History SDOH Alcohol Comment Occasionally; once a week [facility] Start: 1984 Sex Assigned At Not on file [facility] Start: 02-15-2019 End: 04-25-2019 Tobacco smoking status [facility] Never smoked tobacco [facility] Work Phone: Clinical [...] Locations *1: This test was performed at: [address] , [facility] ([place]) 11-28-2022 Note HNO ID: [id number] Author: Melissa Langley RT(R) Service: ? Author Type: Track Broom Operator Type: Progress Notes Filed: 11/28/2022 4:11 PM [...] DATE: November 28, 2022 TIME: 4:10 PM [facility] 06-30-2022 Note This 36-year-old fem grace, G5, P3, was referred for breast evaluation. She states she has a [id number] and continues to breast-feed. She has been [...] a change in self-exam in the interim. [facility] 06-30-2022 History of Present illness Narrative This 36-year-old female, G5, P3, was referred for breast evaluation. She states she has a 70-[id number] and continues to breast-feed. She has been [...] in the interim. documented in this encounter [facility] 02-06-2022 Note HNO ID: [id number] Author: RT Maria T(R) Service: ? Author Type: Track Broom Operator Type: Progress Notes Filed: 02/06/2022 9:42 AM [...] DATE: February 06, 2022 TIME: 9:41 AM [facility] 11-27-2021 History of Present illness Narrative Nutrition rescreen completed. Chart reviewed. Patient to be monitored and followed by the diet special systems technician. Tatum Ibarra, DT CARDIOLOGY PROGRESS NOTE [...] and will follow locally with her local glove brusher and bag liner for further evaluation and treatment. I reviewed my assessment and plan with Michelle Mauricio . All questions were answered. Addendum: will arrange CPET and F/U with me after CPET. Cardiology will sign off. NOTE: This report was transcribed using voice recognition software. Every effort was made to ensure accuracy; however, inadvertent computerized equalizing saw operator errors may be present. Electronicallysigned by Rocio [...] results of echo. Work up done at [facility], we do not have a shared record, [...] after testing. She should f/u with her bag liner as well. See discharge diagnoses list above [...] MD Chapo Mueller (more content not included)... [facility] 09-12-[address] showed enlarged liver with stable hemangioma. No evidence of advanced liver disease. Prior liver biopsy was unremarkable. No need for further work up No need for further work up Minesh Cottrell MD Dr. Cottrell, please review CT liver and advise. 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 [facility] of Gastroenterology and Hepatology documented in this encounter [facility] 08-27-2021 History of Present illness Narrative y documented in this encounter [facility] Evaluation + Plan note No data available for this section [facility] Diagnosis Abnormal results of liver function studies Nonspecific abnormal results of liver function study [facility] Diagnosis Dyspnea, unspecified type- Primary Mild intermittent asthma without complication Unspecified asthma ASD (atrial septal defect) Ostium secundum type atrial septal defect documented in this encounter [facility] Work Phone: Evaluation note* Diagnosis Fibrocystic disease of both breasts- Primary Axillary adenopathy Enlargement of lymph nodes [facility] No data available for this section [facility] Progress note No data available for this section [facility] Summary Purpose Family History No Family History Records FoundNo Family History Records FoundNo Family History Records FoundNo Family History Records FoundNo Family History Records FoundNo Family History Records Found No data available for this section No Family History Records Found Advance Directives No Advanced Directives Records FoundDocuments on File Type Date Recorded Patient Millinery Department Manager Expl anation Advance Directive(s) 10/26/2019 1:33 PM Advance Directive(s) 10/10/2019 8:34 AM Documents on File Type Date Recorded Patient Millinery Department Manager Expl anation Advance Directive(s) 10/26/2019 1:33 PM Advance Directive(s) 10/10/2019 8:34 AM Latest Code Status on File Code Status Date Activated Date Inactivated Comments Full Code 11/26/2021 5:46 AM Latest Code Status on File Code Status Date Activated Date Inactivated Comments Full Code 11/26/2021 5:46 AM 11/27/2021 8:40 PM Procedure Findings Note HNO ID: [id number] Author: Shena Kim Service: ? Author Type: Nurse Cafeteria Team Leader Type: Anesthesia Procedure Notes Filed: 10/26/2019 3:18 PM Note Text: ANESTHESIOLOGY PROCEDURE NOTE Airway General Information Procedure Start Time/Medication Administration: 10/26/2019 2:59 PM Patient location during procedure: OR Staffing Anesthesiologist: Gato Espinoza OPTICAL DESIGNER: Desi Guzman) Judy Performed by: ASHLEE Indications [...] (more content not included)... Note HNO ID: [id number] Author: Shena Kim Service: ? Author Type: Nurse Cafeteria Team Leader Type: Anesthesia Procedure Notes Filed: 10/26/2019 3:18 [...] October 26, 2019 TIME: 3:17 PM CSN: [id number] Note HNO ID: [id number] Author: Rohith Lyon Service: General Surgery Author Type: Resident Type: Brief Op Note Filed: 10/26/2019 4:28 PM Note Text: BRIEF OPERATIVE / PROCEDURE NOTE LOG ID: [id number] SURGERY/PROCEDURE DATE: 10/26/2019 INCISION/PROCEDURE START TIME: 3:16 PM INCISION CLOSE/PROCEDURE END TIME: 4:19 PM SURGEON(S)/PROCEDURALIST(S) AND ROVING INSPECTOR(S): Surgeon(s) and Role: * Marko Almaraz - [...] 26, 2019 TIME: 4:25 PM PAGER/CONTACT #: [phone] Reason for Referral Specialty Diagnoses / Procedures Referred By Contac t Referred To Contact CT IMAGING Diagnoses Abnormal results of liver function studies Procedures CT LIVER W IVCON [place] ABDOMEN W/[place] [address] [place] [address] Ct Imaging Referral ID Status Reason Start Date Expiration Date Visits Requested Visits Authorized [id number] Authorized Auto-Generat ed Referral 08/27/2021 09/26/2022 1 1 Referral ID Status Reason Start Date Expiration Date V isits Requested Visits Authorized [id number] Closed Auto-Generate d Referral 08/27/2021 09/26/2022 1 1 Additional Source Comments INFORMATION SOURCE (unrecogn ized section and content) DATE CREATED AUTHOR AUTHOR'S ORGANIZ ATION 12/07/2019 [facility] DATE CREATED AUTHOR AUTHOR'S ORGANIZ ATION 04/25/2020 [facility] DATE CREATED AUTHOR AUTHOR'S ORGANIZ ATION 12/12/2021 [facility] DATE CREATED AUTHOR AUTHOR'S ORGANIZ ATION 07/01/2022 [facility] DATE CREATED AUTHOR AUTHOR'S ORGANIZ ATION 11/30/2022 [facility] DATE CREATED AUTHOR AUTHOR'S ORGANIZ ATION 12/22/[address] [facility] ([place]) Source Comments (unrecognize d section and content) In the event this informatio n is protected by the Federal Confidentiality of Alcohol and Drug Abuse Patient Records regulations: The Federal rules restrict any use of the information to criminally investigate or prosecute any alcohol or drug abuse patient.[facility] the event this information is protected by the Federal Confidentiality of Alcohol and Drug Abuse Patient Records regulations: The Federal rules restrict any use of the information to criminally investigate or prosecute any alcohol or drug abuse patient.[facility] the event this information is protected by the Federal Confidentiality of Alcohol and Drug Abuse Patient Records regulations: The Federal rules restrict any use of the information to criminally investigate or prosecute any alcohol or drug abuse patient.[facility] the event this information is protected by the Federal Confidentiality of Alcohol and Drug Abuse Patient Records regulations: The Federal rules restrict any use of the information to criminally investigate or prosecute any alcohol or drug abuse patient.[facility] Reason for Visit (unrecogniz ed section and content) Reason Comments Radiology CT Specialty Diagnoses / Procedures Referred By Lucy t Referred To Contact CT IMAGING Diagnoses Abnormal results of liver function studies Procedures CT LIVER W IVCON [place] ABDOMEN W/[place] [address] [place] [address] Ct Imaging Referral ID Status Reason Start Date Expiration Date V isits Requested Visits Authorized [id number] Closed Auto-Generate d Referral 08/27/2021 09/26/2022 1 [...] Care Teams (unrecognized sec tion and content) Incising Machine Operator Relationship Specialty Start Date End Date Gato Lujan [address] [place] [address] PCP - General Family Practice 10/10/19 Incising Machine Operator Relationship Specialty Start Date End Date Gato Lujan [address] [place], [place] [address] PCP - General Family Practice 10/10/19 Incising Machine Operator Relationship Specialty Start Date End Date Gato Lujan MD PCP - General Family Medicine 11/01/19 Incising Machine Operator Relationship Specialty Start Date End Date Gato Lujan MD PCP - General Family Medicine 11/01/19 Incising Machine Operator Relationship Specialty Start Date End Date Gato Lujan [address] [facility] [address] [place] [address] PCP - General Family Medicine 10/10/19 Incising Machine Operator Relationship Specialty Start Date End Date Gato Lujan MD [address] [facility] [address] [place] [address] PCP - General 11/01/19 Scheduled [...] Until Thu11/29/21 at 1141, Line Care, Per Buffet Server Request, May use order for Line Care after every IV line use and Agitated Saline Bubble Study. Administration for Bubble Study per policy analyst request for only. Remove 1 mL 0.9% [...] BE BASED ON THE PRIMARY CLINICAL RECORDS. [facility]. provides no warranty or guarantee of the accuracy or completeness of information in this document.
== END | disposition home or self-care (01) ==
LOC: CVS 10:52
PROVIDERS: PCP Family Medicine; Referring Provider Nurse Practitioner Gerontology; Visit Provider Nurse Practitioner Gerontology
DX: Q21.10 Atrial septal defect, unspecified (principal)
CPT/HCPCS: 93306

== ENCOUNTER → 2023-07-09 | Outpatient (CLI) | payer OTHER, SELFPAY ==
[2023-07-09 07:38] LABS: ALB/GLOB Ratio 1.1 RATIO (0.9-2.4); AST(SGOT) 12 U/L (15-37); Alanine Aminotransfer ALT/SGPT 15 U/L (13-56); Albumin, Serum 3.6 g/dL (3.2-5.0); Alkaline Phosphatase 53 U/L (45-117); Anion Gap 6 (5-15); BUN 9 mg/dL (7-18); BUN/Creat Ratio 11.6 RATIO (10-20); Calcium,Total 8.9 mg/dL (8.5-10.1); Chloride 116 mmol/L (98-107); Creatinine, Serum 0.78 mg/dL (0.55-1.02); EST Glomerular Filtration Rate 88 mL/min (>60); Est Glom Filt Rate - Afr Amer 106 mL/min (>60); Globulin 3.3 g/dL (2.2-4.2); Glucose 109 mg/dL (74-106); Potassium 3.5 mmol/L (3.5-5.1); Protein, Total 6.9 g/dL (6.4-8.2); Sodium Level 141 mmol/L (136-145)
[2023-07-09 08:09] LABS: PTHIN 105.4 pg/mL (18.4-80.1)
== END | disposition home or self-care (01) ==
LOC: LAB 06:32
PROVIDERS: PCP Family Medicine; Referring Provider Family Medicine; Visit Provider Family Medicine
DX: E34.9 Endocrine disorder, unspecified (principal)
CPT/HCPCS: 36415; 80053; 83970

== ENCOUNTER → 2023-10-20 | Outpatient (CLI) | payer OTHER, SELFPAY ==
[2023-10-20 08:04] LABS: Erythrocyte Sedimentation Rate < 1 mm/hr (0-30)
[2023-10-20 08:05] LABS: CRP < 2.90 mg/L (0.0-3.0); LDH 150 U/L (84-246)
[2023-10-22 16:09] LABS: ACCA 17 units (0-90); ALCA 27 units (0-60); AMCA 80 units (0-100); Cytoplasmic Ab (C-ANCA) <1:20 titer (Neg:<1:20); Gastrin, Serum 19 pg/mL (0-115); PROLACTIN 9.8 ng/mL (4.8-33.4); Perinuclear Ab (P-ANCA) <1:20 titer (Neg:<1:20); gASCA 23 units (0-50)
== END | disposition home or self-care (01) ==
LOC: LAB 06:46
PROVIDERS: PCP Family Medicine; Referring Provider Internal Medicine Gastroenterology; Visit Provider Internal Medicine Gastroenterology
DX: R16.0 Hepatomegaly, not elsewhere classified (principal)
CPT/HCPCS: 36415; 82533; 82941; 83516; 83615; 84146; 85652; 86036; 86140; 86256; 86671

== ENCOUNTER → 2023-11-05 | Outpatient (CLI) | payer OTHER, SELFPAY ==
--- NOTE | 2023-11-05 17:38 | CT_ITS ---
EXAM: CT ABDOMEN AND PELVIS WITH INTRAVENOUS CONTRAST CLINICAL INDICATION: RIGHT SIDED AB PAIN X YEARS. PRIOR APPY,XAVIER AND RIGHT OVARY REMOVED TECHNIQUE: Helically acquired images were obtained of the abdomen and pelvis with intravenous contrast. This CT exam was performed using one or more of the following dose reduction techniques: automated exposure control, adjustment of the mA and/or kV according to patient size, and/or use of iterative reconstruction technique. CONTRAST: 100 cc of Isovue-370 IV. RADIATION DOSE: CTDIvol = 9.91 mGy, DLP = 526.25 mGy-cm COMPARISON: No relevant prior studies available. FINDINGS: LOWER THORAX: Unremarkable. Lung bases are clear. No cardiomegaly. No significant pericardial effusion. ABDOMEN: LIVER: Unremarkable. Homogeneous. No focal mass. GALLBLADDER AND BILE DUCTS: Cholecystectomy. No intra- or extrahepatic biliary ductal dilation. PANCREAS: Unremarkable. No focal cystic or solid mass. SPLEEN: Unremarkable. Normal size without focal cystic or solid mass. ADRENALS: Unremarkable. No nodules. KIDNEYS AND URETERS: Simple bilateral renal cysts. No follow-up of these simple cysts is necessary. Normal renal size and position. No hydronephrosis. STOMACH AND BOWEL: Unremarkable. No stomach or bowel distention. No focal inflammatory change. PELVIS: APPENDIX: Status post appendectomy. BLADDER: Unremarkable. REPRODUCTIVE: Simple left ovarian cyst or follicle measuring 3.2 x 1.8 x 2.8 cm. No follow-up is necessary. ABDOMEN and PELVIS: INTRAPERITONEAL SPACE: Unremarkable. No ascites or other fluid collection. No free air. BONES/JOINTS: Unremarkable. No suspicious lytic or blastic abnormality. SOFT TISSUES: Small fat-containing paraumbilical hernia. VASCULATURE: Unremarkable. Abdominal aorta is non-dilated. LYMPH NODES: Unremarkable. No enlarged lymph nodes. CT/Abdomen/Pelvis WITH Contrast IMPRESSION: 1. No acute abdominal pelvic abnormality. 2. Cholecystectomy. 3. Small fat-containing paraumbilical hernia. No bowel involvement. Electronically Signed: Nahun Hines MD at 22:13 EDT ,
== END | disposition home or self-care (01) ==
LOC: CT 17:37
PROVIDERS: PCP Family Medicine; Referring Provider Internal Medicine Gastroenterology; Visit Provider Internal Medicine Gastroenterology
DX: R10.9 Unspecified abdominal pain (principal)
CPT/HCPCS: 74177; Q9967

== ENCOUNTER → 2023-11-20 | Outpatient (CLI) | payer OTHER, SELFPAY ==
[2023-11-20 10:59] LABS: Vitamin D,25 Hydroxy 23.3 ng/mL
[2023-11-20 11:05] LABS: AST(SGOT) 11 U/L (15-37); Alanine Aminotransfer ALT/SGPT 13 U/L (13-56); Albumin, Serum 3.4 g/dL (3.2-5.0); Alkaline Phosphatase 55 U/L (45-117); Anion Gap 3 (5-15); BUN 12 mg/dL (7-18); BUN/Creat Ratio 17.8 RATIO (10-20); Calcium,Total 8.6 mg/dL (8.5-10.1); Chloride 112 mmol/L (98-107); Creatinine, Serum 0.67 mg/dL (0.55-1.02); EST Glomerular Filtration Rate 104 mL/min (>60); Est Glom Filt Rate - Afr Amer 125 mL/min (>60); Globulin 3.3 g/dL (2.2-4.2); Glucose 90 mg/dL (74-106); Protein, Total 6.7 g/dL (6.4-8.2); Sodium Level 140 mmol/L (136-145)
[2023-11-23 16:10] LABS: Anti-Mullerian Hormone,Serum 0.172 ng/mL (.)
== END | disposition home or self-care (01) ==
PROVIDERS: PCP Family Medicine; Referring Provider Family Medicine; Visit Provider Family Medicine
DX: E21.3 Hyperparathyroidism, unspecified (principal); N91.1 Secondary amenorrhea
CPT/HCPCS: 36415; 80053; 82306; 83516; 83970; 84443

== ENCOUNTER → 2023-11-27 | Outpatient (CLI) | payer OTHER, SELFPAY ==
--- NOTE | 2023-11-27 09:37 | US_ITS ---
STUDY: ULTRASOUND BREAST - LEFT REASON FOR EXAM: Female, 37 years old. Left breast biopsy. TECHNIQUE: Axial and longitudinal images of the LEFT breast were performed with a high resolution ultrasound transducer. # OF IMAGES: 21 COMPARISON: Comparison is made with prior mammogram done earlier today as well as prior sonogram of left breast dated January 29, 2023. FINDINGS: LEFT Breast: There is a 7 mm x 6 mm x 3 mm cyst at the 12:00 position breast at 4 cm from nipple. There is a 2 cm x 1.9 cm x 0.8 cm left axillary lymph node. This appears to be benign. There is a 6 mm x 8 mm x 4 mm hypoechoic nodule at the 1:00 position breast at 4 cm from nipple. A tissue clip marker is seen within it. US/Breast Limited Unilateral IMPRESSION: Stable examination. ASSESSMENT CATEGORY: BIRADS Category 2: Benign. A letter regarding these results will be sent to the patient by the facility within 30 days. Electronically Signed: Ladarius Mensah MD at 13:14 EDT ,
--- NOTE | 2023-11-27 09:44 | BI_ITS ---
MAMMOGRAPHY - BILATERAL DIAGNOSTIC REASON FOR EXAM: Female, 37 years old. Occasional pain in the upper outer quadrant of the right breast. PERTINENT HISTORY: Non-contributory. Prior left ultrasound-guided breast biopsy. TECHNIQUE: Digital bilateral breast alber (3D mammographic acquisition) in the CC and MLO projections. 2-D mediolateral oblique (MLO) and craniocaudad (CC) views of both breasts were obtained. CAD: Full Field Digital Mammography with Computer Added Detection was performed. COMPARISON: Comparison is made with prior study dated May 16, 2022 and November 05, 2017. FINDINGS: Breast Composition: The breasts are extremely dense, which lowers the sensitivity of mammography. There are no dominant masses or suspicious calcifications. 2 tissue markers are seen in the upper outer quadrant of the left breast. No other significant abnormalities are identified. There has been no significant change since the prior study. BI/DIAG MAMM W/CAD, BILAT IMPRESSION: Stable bilateral diagnostic mammogram. One year follow-up recommended. (A) ASSESSMENT CATEGORY: BIRADS Category 2: Benign. A letter regarding these results will be sent to the patient by the facility within 30 days. Approximately 10% of breast cancers are not detected by mammography. A normal mammogram should not delay biopsy of a clinically suspicious abnormality. Electronically Signed: Ladarius Mensah MD at 11:36 EDT ,
== END | disposition home or self-care (01) ==
LOC: OPBI 09:31
PROVIDERS: PCP Family Medicine; Referring Provider Family Medicine; Visit Provider Family Medicine
DX: N64.4 Mastodynia (principal); Z87.898 Personal history of other specified conditions
CPT/HCPCS: 76642; 77062; 77066; G0279

== ENCOUNTER → 2024-02-05 | Outpatient (CLI) | payer OTHER, SELFPAY ==
[2024-02-05 10:28] LABS: Ionized Calcium 1.26 mmol/L (1.09-1.30)
[2024-02-05 10:48] LABS: PTHIN 96.6 pg/mL (18.4-80.1)
[2024-02-05 10:50] LABS: Vitamin D,25 Hydroxy 76.9 ng/mL
[2024-02-05 10:51] LABS: Ionized Calcium Order ORDER TUBE
[2024-02-05 11:01] LABS: Anion Gap 5 (5-15); BUN 11 mg/dL (7-18); BUN/Creat Ratio 15.1 RATIO (10-20); Calcium,Total 8.9 mg/dL (8.5-10.1); Chloride 108 mmol/L (98-107); Creatinine, Serum 0.73 mg/dL (0.55-1.02); EST Glomerular Filtration Rate 94 mL/min (>60); Est Glom Filt Rate - Afr Amer 114 mL/min (>60); Glucose 87 mg/dL (74-106); Potassium 4.4 mmol/L (3.5-5.1); Sodium Level 136 mmol/L (136-145)
== END | disposition home or self-care (01) ==
LOC: LAB 09:46
PROVIDERS: PCP Family Medicine; Referring Provider Family Medicine; Visit Provider Family Medicine
DX: E21.3 Hyperparathyroidism, unspecified (principal); E55.9 Vitamin D deficiency, unspecified
CPT/HCPCS: 36415; 80048; 82306; 82330; 83970

== ENCOUNTER → 2025-01-27 | Outpatient (CLI) | payer OTHER, SELFPAY ==
[2025-01-27 10:29] LABS: Red Blood Cells-Urine 0 SEEN /hpf (0-5)
[2025-01-27 11:08] LABS: Color, Urine Yellow (Yellow); Glucose, Dipstick Normal (Normal); Ketone-Dipstick Negative (Negative); Leukocyte Esterase-Dipstick 25 /ul (Negative); Nitrite-Dipstick Negative (Negative); Occult Blood-Urine Negative /ul (Negative); Protein-Dipstick 30 mg/dl (Negative); Specific Gravity, Urine 1.020 (1.002-1.030); Urine Bilirubin Dipstick Negative (Negative)
[2025-01-27 11:11] LABS: Hematocrit 42.9 % (37-47); Hemoglobin 14.1 g/dL (12.0-15.0); Immature Granulocytes Count 0.010 X10^3/uL (0.0-0.0); Mean Corp Hgb Conc 32.9 g/dL (32-36); Mean Corpuscular Volume 89.4 fL (81-99); Mean Platelet Vol. 9.9 fl (6.2-12.0); NRBC Flagged by Analyzer 0 % (0-5); Platelet Count 178 K/mm3 (150-450); RBC Distribution Width CV 13.5 % (11.6-14.6); RBC Distribution Width SD 44.6 fl (35.1-43.9); Red Blood Count 4.80 M/mm3 (4.2-5.4); White Blood Count 5.0 K/mm3 (4.4-11.0)
[2025-01-27 11:15] LABS: Mucous, Urine 1+ /hpf (<or=2+); Squamous Epithelial Cells - UA 0-5 SEEN /hpf (5-10)
[2025-01-27 11:53] LABS: AST(SGOT) 17 U/L (<=31); Alanine Aminotransfer ALT/SGPT 15 U/L (<=34); Albumin, Serum 4.1 g/dL (3.5-5.0); Alkaline Phosphatase 51 U/L (35-104); Anion Gap 9 (5-15); BUN 12 mg/dL (4-19); BUN/Creat Ratio 16.0 RATIO (10-20); Calcium,Total 8.7 mg/dL (7.6-11.0); Carbon Dioxide 23.9 mmol/L (21.0-32.0); Chloride 108 mmol/L (98-108); Globulin 2.6 g/dL (2.2-4.2); Glucose 80 mg/dL (70-99); Potassium 4.3 mmol/L (3.3-5.1)
[2025-01-27 11:54] LABS: PTHIN 78 pg/mL (11-61)
== END | disposition home or self-care (01) ==
PROVIDERS: PCP Family Medicine; Referring Provider Family Medicine; Visit Provider Family Medicine
DX: E23.1 Drug-induced hypopituitarism (principal); M06.9 Rheumatoid arthritis, unspecified; E55.9 Vitamin D deficiency, unspecified
CPT/HCPCS: 36415; 80053; 81001; 83970; 85025; 85652

== ENCOUNTER → 2025-02-07 | Outpatient (CLI) | payer OTHER, SELFPAY ==
--- OUTSIDE RECORDS SUMMARY | 2025-02-07 06:45 | XMS RPT_ITS | CCD ---
Author Organization [facility] Care Team Providers Care Core Measures Abstractor Name Role Phone Dr. Gato Dc Primary Care Provider Dr. Gato Dc Referring Provider [phone] Ralph Spears Attending Provider Gato Dc Primary Care Provider [phone] Gato Dc MD Primary Care Provider Dr. Gato Dc Primary Care Provider Dr. Gato Dc Referring Provider [phone] LLUVIA Boland NPC Ness Attending Provider Dr. Pablo Hull Attending Provider [phone] MELANIE ESPINO Attending Unavailab Raudel Coon Primary Care Unavailable PROVIDER, UNKNOWN Referring Unavailable Raudel Nowak Primary Care Unavailable Mario Bell Attending Unavailable PROVIDER, UNKNOWN Referring Unavailable Gato Dc Primary Care Provider [phone] Dr. Gato Dc Primary Care Provider [phone] Dr. Gato Dc Referring Provider [phone] CHRISTOPHER Boland NP Attending Provider Dr. Ralph Spears Attending Provider [phone] Krystian LUTZ NP-C Ness Referring Provider Dr. Gato Dc Primary Care Provider Gato Dc MD Primary Care Provider MELANIE ESPINO Referring Unavailable MARQUIS LOTT Attending Unavailable ANUJ CORNELIUS Referring Unavailable GATO DC Primary Care Unavailable MELANIE ESPINO Attending Boogieab Dr. Gato Gonzáles Primary Care Provider [phone] Dr. Gato Dc Referring Provider Dr. Carlos Euceda Attending Provider Friend, Dr. Mathew Attending Provider DORINA SAP TREASURY CONSULTANT - INFORMATICS EDUCATOR, ANTONETTE Goodrich Primary Care Phys kaleida healthan BUSHRA GRAYSON MD Attending Unavailable DORINA SORIA - INFORMATICS EDUCATOR, ANTONETTE Goodrcih Primary Care U Dr. Gato Lewis Primary Care Provider [phone] Dr. Gato Dc Referring Provider [phone] Friend, Dr. Mathew Attending Provider Gato Dc MD Primary Care Provider GATO DC Referring Unavailable GATO DC Primary Care Unavailable GATO DC Primary Care Unavailable AROLDO MIRAMONTES Referring Unavailable Gato Dc Primary Care Unavailable Gato Dc Referring Unavailable Nahun Amin Attending Unavailable Gato Dc Referring Unavailable Aroldo Miramontes Attending Unavailable Gato Dc Referring Unavailable Gato Dc Attending Unavailable Gato Dc Primary Care Unavailable Gato Dc Referring Unavailable Gato Dc Attending Unavailable Gato Dc Primary Care Unavailable Gato Dc Referring Unavailable Mercy Mendez Consulting Unavailable Gato Dc Attending Unavailable Gato Dc Primary Care Unavailable Gato Dc Referring Unavailable Gato Dc Attending Unavailable Gato Dc Primary Care Unavailable Aroldo Miramontes Referring Unavailable Aroldo Miramontes Attending Unavailable Gato Dc Primary Care Unavailable Aroldo Miramontes Referring Unavailable Aroldo Miramontes Attending Unavailable Gato Dc Primary Care Unavailable Gato Dc Primary Care Unavailable Gato Dc Referring Unavailable Mario Lockwood Attending Unavailable Gato Dc Primary Care Unavailable Mario Lockwood Attending Unavailable Gato Dc Primary Care Unavailable Mario Lockwood Attending Unavailable Gato Dc Primary Care Unavailable Mario Lockwood Attending Unavailable ANTONETTE CRUZ APRN, CNP Primary Care U joe WOODARD MD, CLARA Attending Unavailable YAMILET ZUÑIGA, CLARA Attending Unavailable ANTONETTE CRUZ APRN, CNP Primary Care U joe Allergies Allergy Classification Reported Allergen(s) Allergy Type Date of Onset Reaction(s) Facility (17 sources) Bee pollen Drug Allergy 07-31-19 18 Swelling [facility] Work Phone: (20 sources) Cephalexin; Translations: [cephalexin] Drug Allergy 05-01-19 22 Hives [facility] (20 sources) Doxycycline; Translations: [doxycycline] Drug Allergy 07-03-19 16 Shortness of Breath, Nausea And Vomiting, Nausea and vomiting (disorder) [facility] (19 sources) Penicillins; Translations: [Penicillins] Allergy to substance 08-08-19 [address] [facility] Work Phone: (16 sources) Piperacillin; Translations: [piperacillin sodium] Drug Allergy 05-01-19 [address] [facility] (16 sources) tazobactam; Translations: [tazobactam sodium] Drug Allergy 05-01-[address] [facility] (20 sources) traMADol; Translations: [tramadol] Drug Allergy 07-03-19 16 Vomiting, Nausea And Vomiting, Rash [facility] (20 sources) Vancomycin; Translations: [vancomycin] Drug Allergy 08-08-19 17 Anaphylaxis, Facial swelling (finding) [facility] (7 sources) Amoxicillin; Translations: [AMOXICILLIN] Drug Allergy 03-13-19 17 Shortness of Breath [facility] (11 sources) Piperacillin; Translations: [piperacillin] Drug Allergy 08-08-19 17 Anaphylaxis, Anaphylactoid reaction (disorder) [facility] (7 sources) tazobactam; Translations: [TAZOBACTAM] Drug Allergy 08-08-19 17 Anaphylaxis [facility] (2 sources) Piperacillin Sod-Tazobactam So Propensity to adverse reactions to drug 04-25-19 [facility] Work Phone: (1 source) Bee pollen Propensity to adverse reactions 07-31-19 18 [facility] (1 source) Piperacillin / tazobactam Drug Allergy 07-03-19 16 Anaphylaxis [facility] (1 source) Bee pollen Drug allergy (disorder) 06-09-[address] [facility] (1 source) Cephalexin Drug Allergy 06-09-[address] [facility] (1 source) Doxycycline Drug Allergy 06-09-[address] [facility] (1 source) traMADol Drug Allergy 06-09-[address] [facility] (1 source) Vancomycin Drug Allergy 06-09-[address] [facility] Medications Current Medications Medication Drug Class(es) Dates Sig (Normalized) Sig (Original) Acetaminophen (1 source) Start: 11-26-2021 acetaminophen (TYLENOL) tablet 650 mg acetaminophen 300 mg / butalbital 50 mg / caffeine 40 mg oral capsule (1 source) Barbiturate, Central Nervous System Stimulant, Methylxanthine Start: 05-09-2021 take 1-2 tablets by mouth every four to six hours Butalbital-Acetamin ophen-Caff (Fioricet) 50-300-40 mg Capsule Active 1 CAP PO EVERY 6 HOURS May 09, 2021 7:48am 1-2 tabs Q4-6 hours acetylcysteine 600 mg oral capsule (1 source) Antidote, Mucolytic, Antidote for Acetaminophen Overdose Start: 02-04-2021 take 1 capsule by mouth once daily Acetylcysteine (Nac) 600 mg Capsule Active 600 MG PO DAILY February 04, 2021 6:14pm albuterol MDI (90 mcg/inh) CFC free inhalation aerosol (5 sources) Start: 11-02-2018 albuterol MDI (90 mcg/inh) CFC free inhalation aerosol See Instructions, # 8.5 inhaler, Refill #: 12 Total Refills: 12, TAKE 2 PUFFS BY MOUTH EVERY 4 HOURS NEEDED, [id number] Start Date: 11/02/18 Status: Ordered Medication Dispense Status: Completed Quantity: 8.5 Unit: inhaler Total Allowed Fills: 13 Fills Dispensed: 0 Start: 11-02-2018 albuterol MDI (90 mcg/inh) CFC free inhalation aerosol See Instructions, # 8.5 inhaler, Refill #: 12 Total Refills: 12, TAKE 2 PUFFS BY MOUTH EVERY 4 HOURS NEEDED, [id number] Start Date: 11/02/18 Status: Ordered Arginine Oxoglurate (L-Arginine(Alpha-Ketoglutarat)) 350 mg Tablet Extended Release (1 source) Start: 05-09-2021 Arginine Oxoglurate (L-Arginine(Alpha-Ketoglutarat)) 350 mg Tablet Extended Release Active 500 MG PO TWICE A DAY May 09, 2021 7:44am aspirin 81 mg chewable table t (16 sources) Platele t Aggrega tion Inhibit or, Nonster oidal Anti-in flammat ory Drug Start: 11-27-2021 aspirin chewable tablet 81 m g Start: 12-07-2020 End: 11-21-2021 take 81 mg by mouth once daily Aspirin Discontinued 81 MG PO DAILY December 06, 2020 11:00pm November 21, 2021 2:25pm breath-actuated 120 actuat beclomethasone dipropionate 0.08 mg/actuat metered dose inhaler (13 sources) Corticosteroid Start: 12-15-2021 take 2 puff(s) by inhalation in the morning Qvar RediHaler 80 MCG/ACT inhaler Inhale 2 puffs in the morning and 2 puffs before bedtime. 0 12/15/2021 Active Start: 11-21-2021 take 80 ug by inhala tion twice daily Beclomethasone Dipropionate (Qvar Redihaler) 80 mcg/actuation HFA aerosol breath activated Active 2 INH INHALATION TWICE A DAY November 20, 2021 11:00pm Start: 11-21-2021 take 80 ug by inhala tion twice daily Beclomethasone Dipropionate (Qvar Redihaler) 80 mcg/actuation HFA aerosol breath activated Active 2 INH INHALATION TWICE A DAY November 21, 2021 12:00am take 1 puff(s) by in halation twice daily beclomethasone (QVAR REDIHALER) 80 MCG/ACT AERB inhaler Inhale 1 puff into the lungs 2 times daily 0 Active 24 hr buPROPion hydrochloride 300 mg extended release oral tablet (20 sources) Aminoketone Start: 04-20-2019 End: 11-27-2021 take 1 tablet by mouth once daily buPROPion 300 mg/24 hours (XL) oral tablet, extended release See Instructions, TAKE 1 TABLET BY MOUTH EVERY DAY, # 90 tab(s), 3 Refill(s), Pharmacy: [id number], 174, cm, 03/11/19 8:32:00 EST, Height, kg, 03/11/19 8:27:00 EST, Dosing Weight Start Date: 08/29/19 Status: Ordered Start: 01-12-2019 End: 01-16-2019 take 150 mg by mouth once daily in the morning Bupropion Hcl Discontinued 150 MG PO EVERY MORNING January 12, 2019 6:20pm January 16, 2019 9:10pm Start: 08-13-2018 End: 01-12-2019 take 1 tablet by mouth once daily in the morning Bupropion Hcl (Wellbutrin Xl) 300 mg tablet extended release 24 hr Discontinued 300 MG PO EVERY MORNING August 12, 2018 11:00pm January 12, 2019 6:21pm Calcium (4 sources) Phosphate Binder, Calcium Start: 03-11-2019 take 1 tablet by mouth twice daily Calcium 600+D oral tablet Dose = 1 tab(s), Oral, BID, 0 Refill(s) Start Date: 03/11/19 Status: Ordered calcium carbonate 1500 mg oral tablet (2 sources) calcium carbonat e 1500 (600 Ca) MG tablet End: 11-27-2021 take 1 tablet by mouth once daily calcium carbonate (OSCAL) 500 MG TABS tablet Take 500 mg by mouth daily 0 11/27/2021 Discontinued (Stop Taking at Discharge) 1 ml certolizumab pegol 200 mg/ml prefilled syringe (20 sources) Start: 03-22-2020 certolizumab p egol (CIMZIA STARTER KIT) 400 mg/2 mL (200 mg/mL x 2) sub-q syringe kit Indications: Rheumatoid arthritis of multiple sites with negative rheumatoid factor (HCC) , Long-term use of immunosuppressant medication , Antinuclear antibody (YOHAN) titer greater than 1:80 Inject 2 mL subcutaneously every 2 weeks for 3 doses. Inject 400mg (2 pens) subcutaneously on weeks 0, 2 and 4 6 mL 0 03/22/2020 Active Start: 03-22-2020 Certolizumab P egol (Cimzia Prefilled) 2 X 200 MG/ML Prefilled Syringe Kit injection Inject 400 mg under the skin every 28 (twenty-eight) days. 0 03/22/2020 Active Comment on above: Inject 2 mL subcutan eously every 2 weeks for 3 doses. Inject 400mg (2 pens) subcutaneously on weeks 0, 2 and 4 Inject 2 mL subcutan eously every 4 weeks. certolizumab pegol (CIMZIA) 2 X 200 MG/ML KIT injection (2 sources) Start: certolizumab pegol (CIMZIA) 2 X 200 MG/ML KIT injection Inject into the skin 0 03/22/2020 Active cholecalciferol 0.05 mg oral capsule (20 sources) Vitamin D Start: take 1000 [IU] by mouth once daily Cholecalciferol (Vitamin D3) Active 1000 UNIT PO DAILY December 29, 2019 3:08pm Start: 12-08-2018 End: 12-29-2019 take 2000 [IU] by mouth once daily Cholecalciferol (Vitamin D3) Discontinued 2000 UNIT PO DAILY December 07, 2018 11:00pm December 29, 2019 3:11pm Start: 10-31-2013 End: 07-13-2017 take 46175 [IU] by mouth every week Cholecalciferol (Vitamin D3) Discontinued [id number] UNIT PO EVERY WEEK October 30, 2013 11:00pm July 13, 2017 8:29am docusate sodium 100 mg oral capsule (6 sources) Start: 04-23-2022 take 1 capsule by mouth once daily Docusate Sodium (Colace) 100 mg capsule Active 100 MG PO DAILY April 23, 2022 12:00am 0.4 ml enoxaparin sodium 100 mg/ml prefilled syringe (1 source) Low Molecular Weight Heparin Start: 11-26-2021 enoxaparin (LOVENOX) injection 40 mg [id number] 0.3 ml EPINEPHrine 1 mg/ml auto-injector (11 sources) alpha-Adrenergic Agonist, beta-Adrenergic Agonist, Catecholamine Start: 04-23-2022 inject 0.3 mg by intramuscular injection once Epinephrine Active 0.3 MG IM ONCE April 23, 2022 12:00am as a single dose; may repeat once epinephrine (EPI PEN INJECTION) Inject 1 Pen intramuscularly as needed. 0 Active Comment on above: Inject 1 Pen intramu scularly as needed. ergocalciferol 1.25 mg oral capsule (5 sources) Provitamin D2 Compound Start : 07-03 take 1 capsule by mouth every week ergocalciferol 50,000 unit capsule (VITAMIN D2, DRISDOL) TAKE 1 CAPSULE BY MOUTH ONE TIME A WEEK FOR 12 DOSES. 4 capsule 2 07/04/2019 Active Comment on above: TAKE 1 CAPSULE BY [facility] ONE TIME A WEEK FOR 12 DOSES. 21 day ethinyl estradiol 0.805284 mg/hr / etonogestrel 0.005 mg/hr vaginal system (5 sources) Progestin, Estrogen Etonogestrel -Ethinyl Estradiol (NUVARING) 0.12-0.015 mg/24 hr vaginal ring Use 1 Each vaginally as directed. Insert vaginally and leave in place for 3 consecutive weeks, then remove for 1 week. 0 Active Comment on above: Use 1 Each vaginally as directed. Insert vaginally and leave in place for 3 consecutive weeks, then remove for 1 week. ethinyl estradiol 0.02 mg / ferrous fumarate 75 mg / norethindrone 1 mg oral tablet (3 sources) Estrogen Start : 03-13 take 1 tablet by mouth once daily oral tablet Dose = 1 tab(s), Oral, qDay, # 84 tab(s), 1 Refill(s), Pharmacy: [id number], 174.2, cm, 12/17/22 13:01:00 EDT, Height, kg, 12/17/22 13:01:00 EDT, Dosing Weight Start Date: 03/13/23 Status: Ordered hydroxychloroquine sulfate 200 mg oral tablet (16 sources) Antimalarial, Antirheumatic Agent Start : 06-27 hydroxychloroquine (Plaquenil) 200 MG tablet Start: 10-31-2013 End: 07-13-2017 take 200 mg by mouth twice daily Hydroxychloroquine Discontinued 200 MG PO TWICE A DAY October 30, 2013 11:00pm July 13, 2017 8:29am ibuprofen 600 mg oral tablet (5 sources) Nonsteroidal Anti-inflammatory Drug Start: 10-26-2019 take 1 tablet by mouth every six hours as needed ibuprofen (MOTRIN) 600 mg tablet Take 1 tablet by mouth every 6 hours as needed for Pain. 20 tablet 0 10/26/2019 Active Comment on above: [facility] hours as needed for Pain. indomethacin 75 mg oral capsule (2 sources) Nonsteroidal Anti-inflammatory Drug take 1 capsule by mouth twice daily at mealtime indomethacin (INDOCIN SR) 75 MG extended release capsule Take 75 mg by mouth 2 times daily (with meals) 0 Active iv contrast (will be provided with radiology test) (6 sources) Start: 08-27-2021 iv contrast (will be provided with radiology test) CT LIVER W IVCON Inject, intravenously, once for 1 dose. No IV access, insert saline lock prior to the beginning of sedation, infusion, injection of imaging exam. Discontinue saline lock post exam. If Pt. has a central line or IVAD, may access for administration according to line specific nursing protocol. Once exam is complete flush line and de-access according to line specific nursing protocol in the CT contrast administration guidelines link. 1 Each 0 08/27/2021 Active Start: 08-27-2021 End: 08-27-2021 iv contrast (will be provide d with radiology test) CT LIVER W IVCON Inject, intravenously, once for 1 dose. No IV access, insert saline lock prior to the beginning of sedation, infusion, injection of imaging exam. Discontinue saline lock post exam. If Pt. has a central line or IVAD, may access for administration according to line specific nursing protocol. Once exam is complete flush line and de-access according to line specific nursing protocol in the CT contrast administration guidelines link. 1 Each 0 08/27/2021 08/27/2021 Discontinued Comment on above: CT LIVER W IVCON Inj ect, intravenously, once for 1 dose. No IV access, insert saline lock prior to the beginning of sedation, infusion, injection of imaging exam. Discontinue saline lock post exam. If Pt. has a central line or IVAD, may access for administration according to line specific nursing protocol. Once exam is complete flush line and de-access according to line specific nursing protocol in the CT contrast administration guidelines link. lactobacillus acidophilus [id number] unt oral capsule (5 sources) Lactobacillus acidophilus (PROBIOTIC) 10 billion cell cap Take by mouth. 0 Active Comment on above: Take by mouth. Magnesium (20 sources) Start: 01-15-20 take 500 mg by mouth once daily Magnesium Active 500 MG PO DAILY January 14, 2021 3:23pm Start: 01-14-2021 take 500 mg by mouth once adrian y Magnesium Active 500 MG PO DAILY January 14, 2021 12:00am Start: 01-14-2021 take 500 mg by mouth once adrian y Magnesium Active 500 MG PO DAILY January 14, 2021 1:00am MAGNESIUM ORAL T mynor by mouth. 0 Active Comment on above: Take by mouth. magnesium oxide 400 mg oral tablet (4 sources) Start: 11-26-2021 magnesium oxid e (MAG-OX) tablet 400 mg magnesium oxide (Mag-Ox) 400 MG tablet Take 500 mg by mouth in the morning. 0 Active montelukast 10 mg oral tablet (20 sources) Leukotriene Receptor Antagonist Start: 04-23-2022 take 5 mg by mouth once daily Montelukast (Singulair) 10 mg tablet Active 5 MG PO DAILY April 23, 2022 12:00am Start: 12-15-2021 montelukast (S ingulair) 5 MG chewable tablet Chew 5 mg in the morning. chew. 0 12/15/2021 Active Start: 04-28-2019 montelukast 10 mg oral tablet Dose : 10 mg = 1 tab(s), Oral, qDay, # 30 tab(s), 6 Refill(s), Pharmacy: [id number], 174, cm, 03/11/19 8:32:00 EST, Height, kg, 03/11/19 8:27:00 EST, Dosing Weight Start Date: 04/28/19 Status: Ordered Start: 10-31-2013 End: 08-13-2018 take 10 mg by mouth once daily Montelukast Discontinue d 10 MG PO DAILY October 30, 2013 11:00pm August 13, 2018 8:00am End: 06-30-2022 montelukast (Singulair) 10 M G tablet Every 24 hours. 0 06/30/2022 Discontinued (Dose adjustment) Comment on above: Take 10 mg by mouth once daily. Mylanta Maximum Strength (4 sources) Start: 9 take 1 dose by mouth four times daily as needed Mylanta Maximum Strength Dose = 5 mL, Oral, QID, PRN for indigestion, taking in solution with Lidocaine and Benadryl, # 200 mL, 0 Refill(s) Start Date: 02/15/19 Status: Ordered nitrofurantoin, macrocrystals 25 mg / nitrofurantoin, monohydrate 75 mg oral capsule (20 sources) Nitrofuran Antibacterial Start: 3 End: 3 Macrobid 100 mg oral capsule Dose : 100 mg = 1 cap(s), Oral, BID, Take with food, X 5 day(s), # 10 cap(s), 0 Refill(s), 12/24/22 8:09:00 AM EST, Pharmacy: [id number], 174.2, cm, 12/17/22 13:01:00 EDT, Height, 85.4, kg, 12/17/22 13:01:00 EDT, Dosing Weight Start Date: 12/19/22 Stop Date: 12/24/22 Status: Ordered Start: 08-02-2018 End: 08-10-2018 take 1 capsule by mouth every twelve hours at mealtime Nitrofurantoin Monohyd/M-Cryst Discontinued 1 CAP PO Q12H 14 August 01, 2018 11:00pm August 09, 2018 11:07pm administer with a meal/food; swallow whole; do not open, crush, dissolve , or chew Start: 07-13-2017 End: 07-20-2017 take 1 capsule by mouth every twelve hours at mealtime Nitrofurantoin Monohyd/M-Cryst Discontinued 1 CAP PO Q12H 14 July 12, 2017 11:00pm July 19, 2017 11:06pm administer with a meal/food; swallow whole; do not open, crush, dissolve , or chew ondansetron (ZOFRAN-ODT) disintegrating tablet 4 mg (1 source) Start: 11-26-2021 ondansetron (Z OFRAN-ODT) disintegrating tablet 4 mg Prenat.Vits,Clement,Min-Iron- Folic (8 sources) Start: 12-20-2021 take 1 tablet by mouth once daily Prenat.Vits,Clement,Min-Iron -Folic Active 1 TABLET PO DAILY December 20, 2021 12:00am Start: 12-20-2021 take 1 tablet by itzel th once daily Prenat.Vits,Clement,Cbl-Pgyp-Ogprc Active 1 TABLET PO DAILY December 19, 2021 11:00pm Complete with DHA (4 sources) Start: 12-17-2022 Compl ete with DHA Oral, qDay, 0 Refill(s) Start Date: 12/17/22 Status: Ordered Hecutgoq-Aay-Cr-FA ( FORTE) TABS (2 sources) Ishqkvoe-Lhi-Ta-FA ( FORTE) TABS Take by mouth 0 Active Vit,Kpve30-Issj-Tkhue (15 sources) Start: 06-01-2020 take 1 tablet by mouth once daily Vit,Rugd20-Bknd-Plzkl Active 1 TABLET PO DAILY June 01, 2020 11:18am Start: 06-01-2020 End: 11-21-2021 take 1 tablet by mouth once daily Vit,Zyvn96-Afru-Yfjvn Discontinued 1 TABLET PO DAILY May 31, 2020 11:00pm November 21, 2021 2:25pm Start: 06-01-2020 End: 11-21-2021 take 1 tablet by mouth once daily Vit,Buso30-Stqc-Xpeik Discontinued 1 TABLET PO DAILY June 01, 2020 12:00am November 21, 2021 3:25pm Start: 06-01-2020 take 1 tablet by itzel th once daily Vit,Zdpb39-Lmpa-Txdae Active 1 TABLET PO DAILY June 01, 2020 12:00am Vit-Fe Fumarate-FA ( VITAMIN AND MINERAL PO) (1 source) Vit-Fe Fumarate-FA ( VITAMIN AND MINERAL PO) Take by mouth. 0 Active vitamin 27-1 MG tablet 1 tablet (1 source) Start: 11-27-19 22 vitamin 27-1 MG tablet 1 tablet promethazine hydrochloride 25 mg oral tablet (5 sources) Phenothiazine Start: 10-07-19 20 take 1 tablet by mouth every six hours as needed promethazine (PHENERGAN) 25 mg tablet Take 1 tablet by mouth every 6 hours as needed (for nausea). 30 tablet 0 10/07/2019 Active Comment on above: Take 1 tablet by itzel th every 6 hours as needed (for nausea). rimegepant 75 mg disintegrating oral tablet (1 source) Start: 05-21-19 25 Nurtec ODT 75 mg oral tablet, disintegrating Dose : 75 mg = 1 tab(s), Oral, Once, PRN as needed for migraine headache, # 8 tab(s), 0 Refill(s) Start Date: 05/20/24 Status: Ordered Medication Dispense Status: Completed Quantity: 8.0 Unit: tab(s) Total Allowed Fills: 1 Fills Dispensed: 0 5 ml sodium chloride 9 mg/ml injection (7 sources) Start: 11-27-19 IntraVENous, at 5-250 mL/hr, PRN, if patient receiving piggyback infusions and maintenance fluids are not ordered OR KVO fluids to protect IV site / prevent frequent line interruptions/ long duration, Starting on Thu11/26/21 at 0835 For piggyback infusion, administer at same rate [...] or less into rate field of order. Start: 11-26-2021 take 1 dose intraven ously twice daily 5-40 mL, IntraVENous, EVERY 12 HOURS SCHEDULED (2 times per day), First dose on Thu11/26/21 at 0915, Until Discontinued For Line Patency: Peripheral IV = 5 [...] Midline or Central Line = 20 mL/lumen Start: 11-26-2021 take 5-40 mL intrave nously once as needed 5-40 mL, IntraVENous, PRN, Starting on Thu11/26/21 at 0835, Until Discontinued, Line Care, After every IV line use For Line Patency: Peripheral IV = 5 [...] Midline or Central Line = 20 mL/lumen Start: 11-26-2021 0.9 % sodium c hloride infusion Start: 11-26-2021 End: 11-29-2021 sodium chloride flush 0.9 % injection 5-40 mL vitamin b12 1 mg/ml injectable solution (7 sources) Vitamin B12 Start: 02-23-2020 cyanocobalamin 1,000 mcg/mL INJECT 1 ML INTRAMUSCULARLY ONCE EVERY MONTH. *DISPENSE WITH 25G 1 INCH NEEDLE/SYRINGE 3 mL 3 02/23/2020 Active take 1 tablet by mouth once adrian y vitamin B-12 (CYANOCOBALAMIN) 1000 MCG tablet Take 1,000 mcg by mouth daily 0 Active Comment on above: INJECT 1 ML INTRAMUS CULARLY ONCE EVERY MONTH. *DISPENSE WITH 25G 1 INCH NEEDLE/SYRINGE Vitamin D3 (4 sources) Start: 03-11-2019 Vitamin D3 Dose : 400 unit(s) = 1 cap(s), Oral, Daily, # 30 cap(s), 0 Refill(s) Start Date: 03/11/19 Status: Ordered Completed/Discontinued Medications Medication Drug Class(es) Dates Sig (Normalized) Sig (Original) [id number] actuat albuterol 0.09 mg/actuat metered dose inhaler (20 sources) beta2-Adrenergic Agonist Start: 11-26-2021 take 1 puff(s) by inhalation every four hours as needed 1 puff, Inhalation, EVERY 4 HOURS PRN, Starting on Thu11/26/21 at 0831, Until Discontinued, Wheezing Initiate RT Bronchodilator Protocol: No Start: 11-26-2021 albuterol (PRO VENTIL) nebulizer solution 2.5 mg Start: 09-07-2020 take 2 puff(s) by in halation four times daily as needed albuterol 108 (90 Base) MCG/ACT inhaler INHALE 2 PUFFS INTO THE LUNGS 4 TIMES DAILY NEEDED 0 11/01/2021 Active Start: 02-06-2019 End: 12-29-2019 take 90 ug by inhalation every six hours as needed Albuterol Sulfate Active 90 MCG INHALATION EVERY 6 HOURS NEEDED February 06, 2019 12:00am Start: 10-31-2013 End: 08-13-2018 take 1 puff(s) by inhalation every four hours as needed Albuterol Sulfate Discontinued 1 - 2 PUFF INHALATION EVERY 4 HOURS NEEDED October 31, 2013 10:21pm August 13, 2018 9:01am Start: 10-31-2013 End: 08-13-2018 take 1 puff(s) by inhalation every four hours as needed Albuterol Sulfate Discontinued 1 - 2 PUFF INHALATION EVERY 4 HOURS NEEDED October 30, 2013 11:00pm August 13, 2018 8:01am ALBUTEROL INHALA TION Inhale as instructed. 0 Active Comment on above: Inhale as instructed . cephalexin 500 mg oral capsule (15 sources) Cephalosporin Antibacterial Start: 12-05-19 End: 12-15-19 take 500 mg by mouth every twelve hours Cephalexin Discontinued 500 MG PO Q12H 20 December 03, 2020 11:00pm December 13, 2020 11:01pm cetirizine hydrochloride 10 mg oral capsule (16 sources) Histamine-1 Receptor Antagonist Start: 07-14-19 18 End: 08-14-19 19 take 1 capsule by mouth once daily Cetirizine (Zyrtec) 10 mg capsule Discontinued 10 MG PO daily July 12, 2017 11:00pm August 13, 2018 8:01am cetirizine (ZyrT EC) 10 MG tablet Take by mouth. 0 Active ciprofloxacin 500 mg oral tablet (15 sources) Quinolone Antimicrobial Start: 12-09-2018 End: 12-30-2018 take 500 mg by mouth twice daily Ciprofloxacin Hcl Discontinued 500 MG PO TWICE A DAY December 08, 2018 11:00pm December 30, 2018 5:20pm diclofenac sodium 0.01 mg/mg topical gel (1 source) Nonsteroidal Anti-inflammatory Drug Start: 11-01-2019 End: 11-27-2021 diclofenac sodium (VOLTAREN) 1 % GEL Indications: Inflammation of ankle joint, right Apply 2 g topically 4 times daily 1 Tube 0 11/01/2019 11/27/2021 Discontinued (Stop Taking at Discharge) 24 hr etodolac 500 mg extended release oral tablet (15 sources) Nonsteroidal Anti-inflammatory Drug Start: 10-31-2013 End: 07-13-2017 take 500 mg by mouth twice daily Etodolac Discontinued 500 MG PO TWICE A DAY October 30, 2013 11:00pm July 13, 2017 8:29am Etonogestrel-Ethiny l Estradiol (NUVARING VA) (1 source) End: 11-27-2021 Etonogestrel-Ethin yl Estradiol (NUVARING VA) Place vaginally 0 11/27/2021 Discontinued (Stop Taking at Discharge) 120 actuat fluticasone propionate 0.11 mg/actuat metered dose inhaler (1 source) Corticosteroid Start: 11-26-2021 take 1 puff(s) by inhalation twice daily 1 puff, Inhalation, 2 TIMES DAILY, First dose on Thu11/26/21 at 0915, Until Discontinued Substituted for Beclomethasone (QVAR) inhaler. folic acid 1 mg oral tablet (15 sources) Start: 10-31-2013 End: 07-13-2017 take 2 mg by mouth once daily Folic Acid Discontinued 2 MG PO DAILY@0800 October 30, 2013 11:00pm July 13, 2017 8:29am gabapentin 300 mg oral capsule (15 sources) Anti-epileptic Agent Start: 11-02-2013 End: 07-13-2017 take 300 mg by mouth three times daily at mealtime Gabapentin Discontinued 300 MG PO 3 TIMES DAILY WITH MEALS November 01, 2013 11:00pm July 13, 2017 8:29am ISOtretinoin 30 mg oral capsule (15 sources) Retinoid Start: 08-13-2018 End: 12-30-2018 take 1 capsule by mouth twice daily Isotretinoin (Myorisan) 30 mg capsule Discontinued 30 MG PO TWICE A DAY August 12, 2018 11:00pm December 30, 2018 5:20pm levonorgestrel 0.587335 mg/hr intrauterine system (15 sources) Progestin, Progestin-containin g Intrauterine Device Start: 08-13-2018 End: 12-29-2019 Levonorgestrel (Kyleena) 17.5 mcg/24 hrs (5 yrs) 19.5 mg intrauterine device Discontinued 1 DEVICE INTRA-UTER ONCE August 12, 2018 11:00pm December 29, 2019 3:10pm lubiprostone 0.008 mg oral capsule (17 sources) Chloride Channel Activator Start: 12-26-2022 End: 01-13-2023 take 1 capsule by mouth twice daily Lubiprostone (Amitiza) 8 mcg capsule Discontinued 8 MCG PO TWICE A DAY 60 January 06, 2023 1:31pm January 13, 2023 1:06pm Start: 12-17-2022 lubiprostone 8 mcg oral capsule Dose : 8 mcg = 1 cap(s), Oral, BID, # 60 tab(s), 0 Refill(s) Start Date: 12/17/22 Status: Ordered Start: 08-28-2022 End: 12-26-2022 take 1 capsule by mouth once daily Lubiprostone (Amitiza) 8 mcg capsule Discontinued 8 MCG PO DAILY 30 October 08, 2022 7:47am December 26, 2022 8:20am meclizine hydrochloride 25 mg oral tablet (15 sources) Antiemetic Start: 01-21-2019 End: 12-29-2019 Meclizine Discontinued 25 MG PO 2 to 3 times per day January 21, 2019 12:00am December 29, 2019 3:10pm Methyltrexate (15 sources) Start: 10-31-2013 End: 07-13-2017 take 12.5 mg by mouth every week Methyltrexate Discontinued 12.5 MG PO EVERY WEEK October 31, 2013 10:21pm July 13, 2017 9:29am Start: 10-31-2013 End: 07-13-2017 take 12.5 mg by mouth every week Methyltrexate Discontinued 12.5 MG PO EVERY WEEK October 30, 2013 11:00pm July 13, 2017 8:29am Start: 10-31-2013 End: 07-13-2017 take 12.5 mg by mouth every week Methyltrexate Discontinued 12.5 MG PO EVERY WEEK October 31, 2013 12:00am July 13, 2017 9:29am ondansetron 4 mg oral tablet (20 sources) Serotonin-3 Receptor Antagonist Start: 12-04-2020 End: 11-21-2021 take 1 tablet by mouth every eight hours Ondansetron Hcl (Zofran) 4 mg tablet Discontinued 4 MG PO Q8H December 03, 2020 11:00pm November 21, 2021 2:25pm Start: 09-19-2019 take 1 tablet by itzel th every eight hours as needed ondansetron orally disintegrating (ZOFRAN ODT) 4 mg disintegrating tablet TAKE 1 TABLET BY MOUTH EVERY 8 HOURS NEEDED 30 tablet 1 09/19/2019 Active Start: 02-09-2019 End: 12-29-2019 take 4 mg by mouth every six hours as needed Ondansetron Hcl Discontinued 4 MG PO EVERY 6 HOURS NEEDED February 09, 2019 3:18pm December 29, 2019 3:10pm Start: 11-01-2013 End: 07-13-2017 take 4 mg by mouth every eight hours as needed Ondansetron Hcl Discontinued 4 MG PO EVERY 8 HOURS NEEDED October 31, 2013 11:00pm July 13, 2017 8:29am Comment on above: TAKE 1 TABLET BY ITZEL TH EVERY 8 HOURS NEEDED oxyCODONE hydrochloride 5 mg oral tablet (15 sources) Opioid Agonist Start: End: take 5 mg by mouth every four hours as needed Oxycodone Discontinued 5 MG PO EVERY 4 HOURS NEEDED 10 August 04, 2017 11:00pm August 13, 2018 8:00am phenazopyridine hydrochloride 100 mg oral tablet (15 sources) Start: End: take 1 tablet by mouth three times daily at mealtime Phenazopyridine (Pyridium) 100 mg tablet Discontinued 100 MG PO THREE TIMES A DAY 7 July 12, 2017 11:00pm July 13, 2017 11:06pm administer with a full glass of water after each meal polyethylene glycol 3350 01177 mg powder for oral solution (1 source) Osmotic Laxative Start: 17 g, Oral, DAILY PRN, Starting on Thu11/26/21 at 0835, Until Discontinued, Constipation First line therapy for constipation predniSONE 20 mg oral tablet (15 sources) Start: End: take 3 tablets by mouth once daily, then take 2 tablets by mouth once daily, then take 1 tablet by mouth once daily Prednisone Discontinued 20 MG PO DAILY January 10, 2019 12:00am January 21, 2019 2:08pm 3 tablets daily for 3 days, then 2 tablets daily for 3 days, then 1 tablet daily for 3 days spironolactone 100 mg oral tablet (6 sources) Aldosterone Antagonist Start: End: spironolactone (ALDACTONE) 100 MG tablet 100 mg 0 07/13/2017 11/26/2021 Discontinued (LIST CLEANUP) Comment on above: Take 100 mg by mouth once daily. SUMAtriptan 25 mg oral tablet (15 sources) Serotonin-1b and Serotonin-1d Receptor Agonist Start: End: take 25 mg by mouth twice daily Sumatriptan Succinate Discontinued 25 MG PO TWICE A DAY October 30, 2013 11:00pm July 13, 2017 8:29am 0.9 ml tocilizumab 180 mg/ml prefilled syringe (1 source) Interleukin-6 Receptor Antagonist Start: End: ACTEMRA 162 MG/0.9ML SOSY injection topiramate 25 mg oral tablet (15 sources) Start: End: take 25 mg by mouth once daily Topiramate Discontinued 25 MG PO DAILY October 30, 2013 11:00pm July 13, 2017 8:29am vitamin b6 50 mg oral capsule (15 sources) Start: End: take 1 capsule by mouth once daily pyridoxine (vitamin B6) 50 mg capsule Discontinued 50 MG PO DAILY December 07, 2018 11:00pm January 12, 2019 4:56pm zolpidem tartrate 10 mg oral tablet (15 sources) gamma-Aminobutyric Acid-ergic Agonist Start: End: take 10 mg by mouth at bedtime Zolpidem Discontinued 10 MG PO AT BEDTIME November 03, 2013 2:48pm July 13, 2017 8:30am Problems Active Problems Problem Classification Problem Date Documented Da te Episodic/Chronic Allergic reactions (6 sources) Allergy status to other antibiotic agents status; Translations: [Allergy status to narcotic agent status] Onset: 2 Episodic Anxiety disorders (6 sources) Mixed anxiety and depressive disorder; Translations: [Obsessive-compulsive disorder, unspecified] Onset: 5 02-15-2019 Chronic Asthma (20 sources) Asthma; Translations: [Unspecified asthma, uncomplicated] Onset: 0 10-25-2019 Chronic Attention-deficit, conduct, and disruptive behavior disorders (1 source) Attention-deficit hyperactivity disorder, unspecified type; Translations: [Attention-deficit hyperactivity disorder, unspecified type] Onset: 5 Chronic Bacterial infection; unspecified site (5 sources) Scarlet fever 02-15-2019 Episodic Comment on above: h/o Cardiac and circulatory congenital anomalies (20 sources) Patent foramen ovale; Translations: [Atrial septal defect] Onset: 0 Chronic Cardiac dysrhythmias (20 sources) Palpitations; Translations: [Palpitations] Episodic Deficiency and other anemia (10 sources) Anemia due to blood loss 02-15-2019 Chronic Deficiency and other anemia (5 sources) Iron deficiency anemia 02-15-2019 Episodic Diseases of white blood cells (15 sources) Leukopenia; Translations: [Decreased white blood cell count, unspecified] 07-28-2019 Chronic Esophageal disorders (5 sources) Gastroesophageal reflux disease; Translations: [Gastro-esophageal reflux disease without esophagitis] Onset: 0 10-25-2019 Chronic Genitourinary symptoms and ill-defined conditions (20 sources) Urine color abnormal; Translations: [Other symptoms and signs involving the genitourinary system] Onset: 3 12-11-2020 Episodic Headache; including migraine (5 sources) Migraine without aura 02-15-2019 Chronic Headache; including migraine (17 sources) Headache; Translations: [Headache] Episodic Heart valve disorders (10 sources) Mitral valve regurgitation; Translations: [Tricuspid valve regurgitation] 02-15-2019 Chronic Heart valve disorders (16 sources) Heart murmur; Translations: [Cardiac murmur, unspecified] Episodic Immunity disorders (15 sources) Immunosuppression; Translations: [Immunodeficiency, unspecified] 12-06-2020 Chronic Immunizations and screening for infectious disease (5 sources) Raised antinuclear antibody; Translations: [Raised antibody titer] 03-13-2016 Episodic Inflammatory diseases of female pelvic organs (5 sources) Endometritis 02-15-2019 Episodic Comment on above: Lymphadenitis (1 source) Axillary lymphadenopathy; Translations: [Localized enlarged lymph nodes] Episodic Malaise and fatigue (5 sources) Chronic fatigue syndrome 02-15-2019 Chronic Mood disorders (15 sources) Depressive disorder; Translations: [Depression] 07-28-2019 Chronic Nausea and vomiting (15 sources) Nausea; Translations: [Nausea] 12-04-2020 Episodic Nonmalignant breast conditions (1 source) Fibrocystic disease of breast; Translations: [Diffuse cystic mastopathy of left breast] Chronic Nutritional deficiencies (5 sources) Vitamin B deficiency 02-15-2019 Episodic Other aftercare (5 sources) Long-term current use of immunosuppressive drug; Translations: [Other middle or intermediate school principal (current) drug therapy] 03-13-2016 Episodic Other aftercare (5 sources) Post-discharge follow-up 02-15-2019 Episodic Other and unspecified benign neoplasm (2 sources) Benign tumor of breast; Translations: [Benign neoplasm of unspecified breast] 09-05-2022 Episodic Other bone disease and musculoskeletal deformities (20 sources) Osteopenia; Translations: [Other specified disorders of bone density and structure, unspecified site] 07-28-2019 Episodic Other complications of (15 sources) Dehydration; Translations: [Other specified related conditions, unspecified trimester] 12-09-2020 Episodic Other ear and sense organ disorders (5 sources) Hearing loss of right ear 03-11-2019 Chronic Other endocrine disorders (5 sources) Hypoglycemia 02-15-2019 Chronic Other endocrine disorders (2 sources) Hyperparathyroidism, unspecified; Translations: [Hyperparathyroidism, unspecified] Onset: 5 Chronic Other gastrointestinal disorders (15 sources) Hemorrhage into peritoneal cavity; Translations: [Hemoperitoneum] 05-22-2020 Episodic Other gastrointestinal disorders (4 sources) Constipation; Translations: [Constipation, unspecified] 07-25-2022 Episodic Other gastrointestinal disorders (2 sources) Chronic constipation; Translations: [Other constipation] 12-12-2022 Episodic Other liver diseases (5 sources) Large liver; Translations: [Hepatomegaly, not elsewhere classified] Episodic Other lower respiratory disease (15 sources) Rib pain; Translations: [Pleurodynia] 12-09-2020 Episodic Other lower respiratory disease (14 sources) Dyspnea; Translations: [Dyspnea, unspecified] Onset: 2 Episodic Other lower respiratory disease (6 sources) Dyspnea, unspecified; Translations: [Other respiratory abnormalities] Onset: 2 Episodic Other nervous system disorders (20 sources) Renteria's palsy; Translations: [Renteria's palsy] 05-22-2020 Episodic Comment on above: h/o Other and delivery including normal (20 sources) ; Translations: [Encounter for supervision of normal , unspecified, unspecified trimester] Episodic Other screening for suspected conditions (not mental disorders or infectious disease) (8 sources) Liver function tests abnormal; Translations: [Abnormal results of liver function studies] Onset: 5 Episodic Ovarian cyst (5 sources) Cyst of ovary 02-15-2019 Episodic Rheumatoid arthritis and related disease (20 sources) Rheumatoid arthritis; Translations: [Rheumatoid arthritis, unspecified] Onset: 8 03-13-2016 Chronic Unclassified (1 source) Contact with and (suspected) exposure to COVID-19; Translations: [Contact with and (suspected) exposure to COVID-19] Onset: 2 Unclassified (2 sources) New Patient; Translations: [New Patient] Onset: 3 Unclassified (5 sources) Finding of movement of hand 03-11-2019 Urinary tract infections (15 sources) Urinary tract infectious disease; Translations: [Urinary tract infection, site not specified] 12-11-2020 Episodic Viral infection (20 sources) COVID-19; Translations: [Pneumonia due to COVID-19 virus] 12-14-2020 Episodic Past or Other Problems Problem Classification Problem Date Documented Da te Episodic/Chronic Abdominal pain (20 sources) Right flank pain; Translations: [Unspecified abdominal pain] Onset: 04-04-2019 04-04-2019 Episodic Biliary tract disease (10 sources) Cholecystitis without calculus; Translations: [Cholecystitis, unspecified] Onset: 09-29-2019 09-29-2019 Episodic Blindness and vision defects (3 sources) Visual disturbance; Translations: [Unspecified visual disturbance] Onset: 04-25-2019 04-25-2019 Episodic Nonmalignant breast conditions (20 sources) Acute mastitis; Translations: [Mastitis without abscess] Onset: 12-21-2023 12-04-2020 Episodic Other gastrointestinal disorders (5 sources) Slow transit constipation; Translations: [Slow transit constipation] Onset: 04-04-2019 04-04-2019 Episodic Other gastrointestinal disorders (3 sources) Constipation, unspecified; Translations: [Constipation, unspecified] Onset: 11-28-2022 07-25-2022 Episodic Other gastrointestinal disorders (3 sources) Other constipation; Translations: [Constipation, unspecified] Onset: 10-30-2023 12-12-2022 Episodic Other gastrointestinal disorders (1 source) Slow transit constipation; Translations: [Slow transit constipation] Onset: 10-30-2023 Episodic Other liver diseases (5 sources) Hepatomegaly, not elsewhere classified; Translations: [Hepatomegaly] Onset: 11-09-2023 07-25-2022 Episodic Other lower respiratory disease (4 sources) Shortness of breath; Translations: [Shortness of breath] Onset: 11-26-2021 Episodic Unclassified (1 source) Contact with and (suspected) exposure to COVID-19; Translations: [Contact with and (suspected) exposure to COVID-19] Onset: 11-26-2021 Results Test Name Value Interpretation Reference Range Facility Patient Care Provider Cytology Reporton 2024 Patient Care Provider Cytology Report . Pathology Reports Accession: Collected Date/Time: Received Date/Time: Pathologist: [id number] 12/02/2024 09:09 EDT 12/02/2024 18:00 EDT NARAYAN MTZ MD Patient Care Provider Cytology Report SPECIMEN: Specimen Description: Liquid Prep w/ HPV Specimen: Cervical/Endocervical Screening or Diagnostic: Screening RELEVANT HISTORY: LMP: 11/16/24 SPECIMEN ADEQUACY: SATISFACTORY FOR EVALUATION LIMITED BY ACUTE INFLAMMATION AND BORDERLINE SQUAMOUS CELLULARITY Endocervical/Transformat ional zone component present INTERPRETATION/RESULTS: EPITHELIAL CELL ABNORMALITIES, SQUAMOUS Rare atypical squamous cells of undetermined significance (ASC-US) ORGANISMS: Shift in ana rosa consistent with bacterial vaginosis HIGH RISK HPV TESTING: HPV Screen Only, RENO Probe Negative HPV Screen Only, RENO Probe Interp Data: Molecular methodology performed on the [employer] System. The APTIMA HPV Screening Assay is a nucleic acid amplification test which detects fourteen high-risk HPV types (16,18,31,33,35,39,45,51 ,52,56,58,59,66 and 68). Detection of high-risk HPV (types 16,18 and 45) mRNA is dependent on the number of copies present in the specimen which may be affected by collection methods, patient factors, stage of infection and the presence of interfering substances. This assay is designed to enhance existing methods for the detection of cervical disease and should be used in conjunction with clinical information from other diagnostic and screening tests. This assay is not intended for use as a screening device for women under age 30 with normal cervical history or as a substitute for regular cervical cytology screening. If the APTIMA screening assay is positive, the HPV 16 18/45 genotype assay is performed as a follow-up test and should be interpreted in conjunction with cervical cytology test results, according to current practice guidelines. As of: 12/08/24 11:18 EDT COMMENT: This Pap Test was analyzed by the [employer]p Test Imaging System. Processing failed. Manual screening was indicated. Pathology Reports Accession: Collected Date/Time: Received Date/Time: Pathologist: [id number] 12/02/2024 09:09 EDT 12/02/2024 18:00 EDT NARAYAN MTZ MD Verified by Pathology report verified by [facility] Screened by: DEBBY CHANG Electronically signed by NARAYAN MTZ Sign-Out Date: 12/08/2024 13:17 Performing Lab: [facility], [address] [place] [address] Pathology Dept Disclaimer The Pap test is a screening test for cervical cancer. As evidenced by published data, it is subject to both inherent false negative and false positive results. Your patient's results should be interpreted in context with pertinent clinical history including gynecological examination. Normal [facility] HPVSCon 12-05-2024 HPV Screen Only, RENO Probe Negative Normal Negative [facility] Comment on above: Order Comment: Order placed by AP_HPV_ORDER rule from [id number] Result Comment: Mole cular methodology performed on the [employer] System. The APTIMA HPV Screening Assay is a nucleic acid amplification test which detects fourteen high-risk HPV types (16,18,31,33,35,39,45,51,52,56,58,59,66 and 68). Detection of high-risk HPV (types 16,18 and 45) mRNA is dependent on the number of copies present in the specimen which may be affected by collection methods, patient factors, stage of infection and the presence of interfering substances. This assay is designed to enhance existing methods for the detection of cervical disease and should be used in conjunction with clinical information from other diagnostic and screening tests. This assay is not intended for use as a screening device for women under age 30 with normal cervical history or as a substitute for regular cervical cytology screening. If the APTIMA screening assay is positive, the HPV 16 18/45 genotype assay is performed as a follow-up test and should be interpreted in conjunction with cervical cytology test results, according to current practice guidelines. Performed By: #### H PVSC #### [address] [address] HPV Source Cervix Normal [facility] Comment on above: Order Comment: Order placed by AP_HPV_ORDER rule from [id number] Performed By: #### H PVSC #### [address] [address] LABORATORYOrdered By: Orlando gonzalez on 12-02-2024 Color (U) Yellow (12/02/24 1:30 PM) Normal Yellow AO Auto Urine SS Glucose (U) [Mass/Vol] Negative Normal Negative AO Auto Urine SS Ketones Ql (U) Negative Normal Negative AO Auto Urine SS UA Appear Clear (12/02/24 1:30 PM) Normal Clear AO Auto Urine SS UA Bili Negative (12/02/24 1:30 PM) Normal Negative AO Auto Urine SS UA Blood Negative (12/02/24 1:30 PM) Normal Negative AO Auto Urine SS UA Leuk Est Negative (12/02/24 1:30 PM) Normal Negative AO Auto Urine SS UA Nitrite Negative (12/02/24 1:30 PM) Normal Negative AO Auto Urine SS UA pH 6.0 (12/02/24 1:30 PM) Normal 5.0 - 8.0 AO Auto Urine SS UA Protein Negative Normal Negative AO Auto Urine SS UA Spec Grav 1.025 (12/02/24 1:30 PM) Normal 1.015-1.025 AO Auto Urine SS UA Specimen Type Clean Catch (12/02/24 1:30 PM) Normal AO Auto Urine SS UA Urobilinogen 0.2 E.U./dL Normal 0.2-1.0 AO Auto Urine SS LABORATORYOrdered By: SYSTEM SYSTEM on 12-02-2024 HPV E6+E7 mRNA RENO+probe Ql (Cvx) Negative 1 (12/02/24 9:09 AM) Normal Negative Auto Viro/Sero SS Comment on above: Interpretive Data: Nidhi mcneil methodology performed on the [employer] System. The APTIMA HPV Screening Assay is a nucleic acid amplification test which detects fourteen high-risk HPV types (16,18,31,33,35,39,45,51,52,56,58,59,66 and 68). Detection of high-risk HPV (types 16,18 and 45) mRNA is dependent on the number of copies present in the specimen which may be affected by collection methods, patient factors, stage of infection and the presence of interfering substances. This assay is designed to enhance existing methods for the detection of cervical disease and should be used in conjunction with clinical information from other diagnostic and screening tests. This assay is not intended for use as a screening device for women under age 30 with normal cervical history or as a substitute for regular cervical cytology screening. If the APTIMA screening assay is positive, the HPV 16 18/45 genotype assay is performed as a follow-up test and should be interpreted in conjunction with cervical cytology test results, according to current practice guidelines. HPV Source Cervix *NA* (12/02/24 9:09 AM) Invalid Interpretation Code AH Auto Viro/Sero SS UAon 12-02-2024 Color (U) Yellow Normal Yellow [facility] Comment on above: Performed By: #### U A #### [place] [id number] Glucose (U) [Mass/Vol] Negative Normal Negative [facility] Comment on above: Performed By: #### U A #### [address] [address] Ketones Ql (U) Negative Normal Negative [facility] Comment on above: Performed By: #### U A #### [address] [address] UA Appear Clear Normal Clear [facility] Comment on above: Performed By: #### U A #### [place] [address] UA Blood Negative Normal Negative [facility] Comment on above: Performed By: #### U A #### [address] [address] UA Leuk Est Negative Normal Negative [facility] Comment on above: Performed By: #### U A #### [place] [id number] UA Nitrite Negative Normal Negative [facility] Comment on above: Performed By: #### U A #### [place] [address] UA pH 6.0 Normal 5.0 - 8.0 [facility] Comment on above: Performed By: #### U A #### [place] [address] UA Protein Negative Normal Negative [facility] Comment on above: Performed By: #### U A #### [place] [address] UA Spec Grav 1.025 Normal 1.015-1.025 [facility] Comment on above: Performed By: #### U A #### [address] [address] UA Specimen Type Clean Catch Normal [facility] Comment on above: Performed By: #### U A #### [place] [id number] UA Urobilinogen 0.2 E.U./dL Normal 0.2-1.0 [facility] Comment on above: Performed By: #### U A #### [place] [id number] Urobilinogen (U) [Mass/Vol] Negative Normal Negative [facility] Comment on above: Performed By: #### U A #### [address] [address] MR/BMS.Farshad 06-08-2024 MR/BMS.BP [place], [address] [place] [address] OFFICE VISIT Date of Service: 06/08/24 MR#: [id number] Acct: [id number] Name: MICHELLE MAURICIO Rep #: [id number] : 1985 Provider: Dr. Mario Patten se, Age/Sex: 38/F Location: [facility] [place].BP Status: Signed Intake Vital Signs 04/13/24 08:32 06/08/24 07:02 Height 5 ft 8 in 5 ft 8 in Weight: 179 lb 173 lb BMI 27.2 26.3 BP 127/78 H 112/69 Blood Pressure Location Lt brachial Lt brachial Position Sitting Sitting Respiration 16 16 Pulse 88 80 Pulse Source Monitor Monitor BP Intake Visit Reasons: Follow up Accompanied by: Self Allergies cephalexin (From Keflex) Allergy (Severe, Verified 06/08/24 07:04) Hives doxycycline Allergy (Severe, Verified 06/08/24 07:04) Unknown Penicillins Allergy (Severe, Verified 06/08/24 07:04) Anaphylaxis piperacillin sodium (From Zosyn) Allergy (Severe, Verified 06/08/24 07:04) Anaphylaxis tazobactam sodium (From Zosyn) Allergy (Severe, Verified 06/08/24 07:04) Anaphylaxis vancomycin Allergy (Severe, Verified 06/08/24 07:04) Anaphylaxis bee pollen (Bee Pollen) Allergy (Mild, Verified 06/08/24 07:04) Swelling tramadol Adverse Reaction (Severe, Verified 06/08/24 07:04) Nausea/Vom/Diarrhea Medications ???Medication ???Instructions ???Recorded ???Confirmed ???Type albuterol sulfate 90 mcg/actuation 90 mcg inhalation Q6H PRN PRN 06/08/24 History aerosol inhaler Wheezing prenat.vits,clement,min-iron -folic 1 tab PO DAILY PRN 12/20/21 History epinephrine 0.3 mg/0.3 mL 0.3 mg IM ONCE 04/23/22 06/08/24 H istory injection, auto-injector cholecalciferol (vitamin D3) 50 2,000 unit PO DAILY Check with 06/08/24 History mcg (2,000 unit) capsule primary doctor hydroxychloroquine 200 mg tablet 400 mg PO DAILY 10/16/23 06/08/24 History (Plaquenil) coenzyme Q10 200 mg capsule (Co 200 mg PO QDAY 01/27/24 06/08/24 H istory Q-10) loratadine 10 mg tablet mg PO 01/27/24 06/08/24 History nadide (bulk) 100 % powder ea miscellaneous 01/27/24 06/08/24 History (Nicotinamide Adenine Dinucleotide (NAD)) pterostilbene 50 mg capsule 150 mg PO 01/27/24 06/08/24 Histor y rimegepant 75 mg disintegrating mg PO Migraines 01/27/24 06/08/24 History tablet (Nurtec ODT) clonazepam 0.5 mg tablet 0.25 mg (1/2 x 0.5 mg) PO BID PRN 04/13/24 06/08/24 Rx anxiety #30 tabs atomoxetine 40 mg capsule 40 mg PO QDAY #30 caps 06/08/24 Rx PFSH Medical History (Updated 06/08/24 @ 08:[address] Mario Lockwood, DO) ADHD Obsessive compulsive disorder Abnormal mammogram of left breast Vitamin B deficiency Liver hemangioma Gestational HTN Ectopic COVID-19 Anxiety History of vaginal delivery PFO (patent foramen ovale) Hypoglycemia Hypocalcemia Breast cyst Arthritis Migraines Nausea vomiting Cephalalgia Fever Rheumatoid arthritis Surgical History History of left breast biopsy ( 08/2022) S/P exploratory laparotomy History of cholecystectomy History of right oophorectomy Hx of appendectomy Family History Grandmother Arthritis Cancer ovarian, great grandmother Mother Arthritis Depression Father Hypertension Other CAD (coronary artery disease) Mixed hyperlipidemia Social History Smoking Status: Former smoker alcohol intake: current alcohol intake frequency: a few times a month Alcohol type: wine caffeine: Yes Type: coffee Number of servings: 1 and tea Number of servings: 1 what type of physical activity do you participate in: walking, running, bicycling, yoga and weight training frequency: 5-6 times per week HPI History of Present Illness History provided by: patient HPI: Michelle Mauricio is a 38 year old female who presents today for follow up evaluation. Continues to have some interpersonal difficulties with significant other/father of her youngest son. Is awaiting for him seeing a psychiatrist before she makes any decisions about their future. Feels like her ADHD symptoms are worse. Having trouble finishing tasks. Has difficulty with communication in this regard such as returning texts or just walking away in the middle of conversations. Frequently is asked by coworker what she is talking about. Will spend hours at night reading random articles on things like AI. Sleep continues to be somewhat poor. Only getting about 4-5 hours at bedtime. Doesn't frequently nap. Has taken atomoxetine in the past for ADHD from her PCP. Has gone back to school numerous times, approximately 7, without finishing on several occasions. Has numerous roles at her job at [employer], but (more content not included)... Normal [facility] MR/BMS.BPon 04-13-2024 MR/BMS.BP [facility] [address] [place] [address], [address] [place] [address] OFFICE VISIT Date of Service: 04/13/24 MR#: [id number] Acct: [id number] Name: MICHELLE MAURICIO Rep #: [id number] : 1985 Provider: Dr. Mario Patten se, DO Age/Sex: 38/F Location: [facility] [place].BP Status: Signed Intake Vital Signs 03/30/24 06:39 04/13/24 08:32 Height 5 ft 8 in 5 ft 8 in Weight: 179 lb BMI 27.2 BP 139/80 H 127/78 H Blood Pressure Location Lt brachial Lt brachial Position Sitting Sitting Respiration 16 16 Pulse 102 H 88 Pulse Source Monitor Monitor BP Intake Visit Reasons: 2 W FU Accompanied by: Self Allergies cephalexin (From Keflex) Allergy (Severe, Verified 04/13/24 08:35) Hives doxycycline Allergy (Severe, Verified 04/13/24 08:35) Unknown Penicillins Allergy (Severe, Verified 04/13/24 08:35) Anaphylaxis piperacillin sodium (From Zosyn) Allergy (Severe, Verified 04/13/24 08:35) Anaphylaxis tazobactam sodium (From Zosyn) Allergy (Severe, Verified 04/13/24 08:35) Anaphylaxis vancomycin Allergy (Severe, Verified 04/13/24 08:35) Anaphylaxis bee pollen (Bee Pollen) Allergy (Mild, Verified 04/13/24 08:35) Swelling tramadol Adverse Reaction (Severe, Verified 04/13/24 08:35) Nausea/Vom/Diarrhea Medications ???Medication ???Instructions ???Recorded ???Confirmed ???Type albuterol sulfate 90 mcg/actuation 90 mcg inhalation Q6H PRN PRN 04/13/24 History aerosol inhaler Wheezing prenat.vits,clement,min-iron -folic 1 tab PO DAILY PRN 12/20/21 History epinephrine 0.3 mg/0.3 mL 0.3 mg IM ONCE 04/23/22 04/13/24 H istory injection, auto-injector cholecalciferol (vitamin D3) 50 2,000 unit PO DAILY Check with 04/13/24 History mcg (2,000 unit) capsule primary doctor hydroxychloroquine 200 mg tablet 400 mg PO DAILY 10/16/23 04/13/24 History (Plaquenil) coenzyme Q10 200 mg capsule (Co 200 mg PO QDAY 01/27/24 04/13/24 H istory Q-10) loratadine 10 mg tablet mg PO 01/27/24 04/13/24 History nadide (bulk) 100 % powder ea miscellaneous 01/27/24 04/13/24 History (Nicotinamide Adenine Dinucleotide (NAD)) pterostilbene 50 mg capsule 150 mg PO 01/27/24 04/13/24 Histor y rimegepant 75 mg disintegrating mg PO Migraines 01/27/24 04/13/24 History tablet (Nurtec ODT) clonazepam 0.5 mg tablet 0.25 mg (1/2 x 0.5 mg) PO BID PRN 04/13/24 04/13/24 Rx anxiety #30 tabs PFSH Medical History (Updated 01/28/24 @ 06:[address] Mario Lockwood, DO) Obsessive compulsive disorder Abnormal mammogram of left breast Vitamin B deficiency Liver hemangioma Gestational HTN Ectopic COVID-19 Anxiety History of vaginal delivery PFO (patent foramen ovale) Hypoglycemia Hypocalcemia Breast cyst Arthritis Migraines Nausea vomiting Cephalalgia Fever Rheumatoid arthritis Surgical History History of left breast biopsy ( 08/2022) S/P exploratory laparotomy History of cholecystectomy History of right oophorectomy Hx of appendectomy Family History Grandmother Arthritis Cancer ovarian, great grandmother Mother Arthritis Depression Father Hypertension Other CAD (coronary artery disease) Mixed hyperlipidemia Social History Smoking Status: Former smoker alcohol intake: current alcohol intake frequency: a few times a month Alcohol type: wine caffeine: Yes Type: coffee Number of servings: 1 and tea Number of servings: 1 what type of physical activity do you participate in: walking, running, bicycling, yoga and weight training frequency: 5-6 times per week HPI History of Present Illness History provided by: patient HPI: Michelle Mauricio is a 38 year old female who presents today for follow up evaluation. Patient reports that she has been ok. Has still not talked with her significant other about his other relationship, he has stopped drinking, and will be seeing a counselor/psychiatrist. She worries that he may be trying to justify behavior by explaining it with mental health. Does feel somewhat more collected than previous encounter. Ex- who had been in halfway was just recently moved to [facility] for mental health treatment. Has been exercising more in recent past and has been trying to practice grounding exercises. Has had intermittent panic type symptoms. Clonazepam has been helpful in getting some sleep. Tried to sleep without, but only got about 2-3 hours. Got 7 hours last night with 0.25 mg of the clonazepam. Did get a chance to clean out her basement, which helped with her anxiety. Review of Systems Constitutional Reports: fatigue; Denies: fever(s) or chills Eyes Denies: ch (more content not included)... Normal [facility] MR/BMS.BPon 03-30-2024 MR/BMS.BP [facility] [address] [place] [address], [address] [place] [address] OFFICE VISIT Date of Service: 03/30/24 MR#: [id number] Acct: [id number] Name: MICHELLE MAURICIO Rep #: [id number] : 1985 Provider: Dr. Mario Patten se, DO Age/Sex: 38/F Location: [facility] [place].BP Status: Signed Intake Vital Signs 01/27/24 15:02 03/30/24 06:39 Height 5 ft 8 in 5 ft 8 in Weight: 188 lb BMI 28.5 BP 114/75 139/80 H Blood Pressure Location Rt brachial Lt brachial Position Sitting Sitting Respiration 16 16 Pulse 74 102 H Pulse Source Monitor Monitor BP Intake Visit Reasons: 6 wk FU Accompanied by: Self Allergies cephalexin (From Keflex) Allergy (Severe, Verified 03/30/24 07:05) Hives doxycycline Allergy (Severe, Verified 03/30/24 07:05) Unknown Penicillins Allergy (Severe, Verified 03/30/24 07:05) Anaphylaxis piperacillin sodium (From Zosyn) Allergy (Severe, Verified 03/30/24 07:05) Anaphylaxis tazobactam sodium (From Zosyn) Allergy (Severe, Verified 03/30/24 07:05) Anaphylaxis vancomycin Allergy (Severe, Verified 03/30/24 07:05) Anaphylaxis bee pollen (Bee Pollen) Allergy (Mild, Verified 03/30/24 07:05) Swelling tramadol Adverse Reaction (Severe, Verified 03/30/24 07:05) Nausea/Vom/Diarrhea Medications ???Medication ???Instructions ???Recorded ???Confirmed ???Type albuterol sulfate 90 mcg/actuation 90 mcg inhalation Q6H PRN PRN 03/30/24 History aerosol inhaler Wheezing prenat.vits,clement,min-iron -folic 1 tab PO DAILY PRN 12/20/21 History epinephrine 0.3 mg/0.3 mL 0.3 mg IM ONCE 04/23/22 03/30/24 H istory injection, auto-injector cholecalciferol (vitamin D3) 50 2,000 unit PO DAILY Check with 03/30/24 History mcg (2,000 unit) capsule primary doctor hydroxychloroquine 200 mg tablet 400 mg PO DAILY 10/16/23 03/30/24 History (Plaquenil) coenzyme Q10 200 mg capsule (Co 200 mg PO QDAY 01/27/24 03/30/24 H istory Q-10) loratadine 10 mg tablet mg PO 01/27/24 03/30/24 History nadide (bulk) 100 % powder ea miscellaneous 01/27/24 03/30/24 History (Nicotinamide Adenine Dinucleotide (NAD)) pterostilbene 50 mg capsule 150 mg PO 01/27/24 03/30/24 Histor y rimegepant 75 mg disintegrating mg PO Migraines 01/27/24 03/30/24 History tablet (Nurtec ODT) clonazepam 0.5 mg tablet 0.25 mg (1/2 x 0.5 mg) PO BID PRN 03/30/24 03/30/24 Rx anxiety #30 tabs PFSH Medical History (Updated 01/28/24 @ 06:[address] Mario Lockwood, DO) Obsessive compulsive disorder Abnormal mammogram of left breast Vitamin B deficiency Liver hemangioma Gestational HTN Ectopic COVID-19 Anxiety History of vaginal delivery PFO (patent foramen ovale) Hypoglycemia Hypocalcemia Breast cyst Arthritis Migraines Nausea vomiting Cephalalgia Fever Rheumatoid arthritis Surgical History History of left breast biopsy ( 08/2022) S/P exploratory laparotomy History of cholecystectomy History of right oophorectomy Hx of appendectomy Family History Grandmother Arthritis Cancer ovarian, great grandmother Mother Arthritis Depression Father Hypertension Other CAD (coronary artery disease) Mixed hyperlipidemia Social History Smoking Status: Former smoker alcohol intake: current alcohol intake frequency: a few times a month Alcohol type: wine caffeine: Yes Type: coffee Number of servings: 1 and tea Number of servings: 1 what type of physical activity do you participate in: walking, running, bicycling, yoga and weight training frequency: 5-6 times per week HPI History of Present Illness History provided by: patient HPI: Michelle Mauricio is a 38 year old female who presents today for follow up evaluation. Patient reports that she is doing not well. States that she talked to some old acquaintances about how she was and feels like she has been convinced that she has autism. However, has ran into a significant amount of stress that this has taken the backburner. Her ex- has been in halfway since [place], and so now she has been trying to hold it together for her teenage children. Has not been receiving child support from him now. Had found out that her current fiance for the past 7 years had not been living small parts assembler in a house in [place] like he had been telling her that he had. She had accidentally discovered this when they were supposed to go to [place] for an awards ceremony. He had gone missing for several days and she filed a missing person's report on patient. She has then even discovered that he has another person he has been essentially living small parts assembler with another woman in [place]. They had even (more content not included)... Normal [facility] Basic Metabolic Profile (BMP )on 02-05-2024 BUN/CRE 15.1 RATIO Normal 12-[address] [facility] Comment on above: Order Comment: Order Date: 02/05/24 Order Info: 666- - BMP Performed By: #### L 500.2500, L506.1000, L509.1000 #### [facility] [address] [place], [address] CA,Total 8.9 mg/dL Normal 8.5-10.[address] [facility] Comment on above: Order Comment: Order Date: 02/05/24 Order Info: 666- - BMP Performed By: #### L 500.2500, L506.1000, L509.1000 #### [facility] [address] [place], [address] Chloride [Moles/Vol] 108 mmol/L High 98-107 [facility] Comment on above: Order Comment: Order Date: 02/05/24 Order Info: 06- - BMP Performed By: #### L 500.2500, L506.1000, L509.1000 #### [facility] [address] [place], [address] CO2 [Moles/Vol] 24.0 mmol/L Normal 21.0-32.[address] [facility] Comment on above: Order Comment: Order Date: 02/05/24 Order Info: 06- - BMP Performed By: #### L 500.2500, L506.1000, L509.1000 #### [facility] [address] [place], [address] Creatinine [Mass/Vol] 0.73 mg/dL Normal 0.55-1.02 [facility] Comment on above: Order Comment: Order Date: 02/05/24 Order Info: 0667- - BMP Result Comment: The validity of the calculated GFR GFRAA in patients over 70 years has not been determined. Clinical correlation is essential. Performed By: #### L 500.2500, L506.1000, L509.1000 #### [facility] [address] [place], [address] EST GFR - AA 114 mL/min Normal >[address] [facility] Comment on above: Order Comment: Order Date: 02/05/24 Order Info: 0667- - BMP Result Comment: Afri can [place] GFR Calc Performed By: #### L 500.2500, L506.1000, L509.1000 #### [facility] [address] [place], [address] GAP 5 Normal 5-[address] [facility] Comment on above: Order Comment: Order Date: 02/05/24 Order Info: 0667 - BMP Performed By: #### L 500.2500, L506.1000, L509.1000 #### [facility] [address] [place], [address] GFR/1.73 sq M.predicted among non-blacks MDRD (S/P/Bld) [Vol rate/Area] 94 mL/min/{1.73_m2} Normal >[address] [facility] Comment on above: Order Comment: Order Date: 02/05/24 Order Info: 0667- - BMP Result Comment: Non- GFR Calc Performed By: #### L 500.2500, L506.1000, L509.1000 #### [facility] [address] [place], [address] Glucose [Mass/Vol] 87 mg/dL Normal 74-106 [facility] Comment on above: Order Comment: Order Date: 02/05/24 Order Info: 0667 - BMP Performed By: #### L 500.2500, L506.1000, L509.1000 #### [facility] [address] [place], [address] Potassium [Moles/Vol] 4.4 mmol/L Normal 3.5-5.1 [facility] Comment on above: Order Comment: Order Date: 02/05/24 Order Info: 0667 - BMP Performed By: #### L 500.2500, L506.1000, L509.1000 #### [facility] [address] [place], [address] Sodium [Moles/Vol] 136 mmol/L Normal 136-145 [facility] Comment on above: Order Comment: Order Date: 02/05/24 Order Info: 0667 - BMP Performed By: #### L 500.2500, L506.1000, L509.1000 #### [facility] [address] [place], [address] Urea nitrogen [Mass/Vol] 11 mg/dL Normal 7-[address] [facility] Comment on above: Order Comment: Order Date: 02/05/24 Order Info: 0667 - BMP Performed By: #### L 500.2500, L506.1000, L509.1000 #### [facility] [address] [place], [address] L501.2276on 02-05-2024 Ionized Calcium 1.26 mmol/L Normal 1.09-1.[address] [facility] Comment on above: Performed By: #### L 501.2276 ####[facility] [id number] [place], [address] PTHINon 02-05-2024 PTH 96.6 pg/mL High 18.4-80.[address] [facility] Comment on above: Order Comment: Order Date: 02/05/24 Order Info: 0565-1 - PTHIN Performed By: #### L 500.2500, L506.1000, L509.1000 #### [facility] [address] [place], [address] Vitamin D,25 Hydroxyon 02-04 Vitamin D 25-OH 76.9 ng/mL Normal [facility] Comment on above: Order Comment: Order Date: 02/05/24 Order Info: 80233-7 - VITD25 Result Comment: Renee min D 25(OH) Status Range Deficiency <20 ng/mL (50nmol/L) Insufficiency 20 - 30 ng/mL (50 - 75 nmol/L) Sufficiency 30 - 100 ng/mL (75 - 250 nmol/L) Toxicity >100 ng/mL (>250 nmol/L) Performed By: #### L 500.2500, L506.1000, L509.1000 #### [facility] [address] [place], [place], [address] MR/BMS.BPon 01-27-2024 MR/BMS.[address], [address] [place] [address] OFFICE VISIT Date of Service: 01/27/24 MR#: [id number] Acct: [id number] Name: MICHELLE MAURICIO Rep #: [id number] : 1985 Provider: Dr. Mario Patten se, DO Age/Sex: 38/F Location: [facility].BP Status: Signed Intake Vital Signs 06/10/22 07:46 04/10/23 08:51 01/27/24 15:02 Height 5 ft 8 in 5 ft 8 in 5 ft 8 in Weight: 188 lb BMI 28.5 BP 114/75 Blood Pressure Location Rt brachial Position Sitting Respiration 16 Pulse 74 Pulse Source Monitor BP Intake Visit Reasons: Anxiety Accompanied by: Self Allergies cephalexin (From Keflex) Allergy (Severe, Verified 01/27/24 15:05) Hives doxycycline Allergy (Severe, Verified 01/27/24 15:05) Unknown Penicillins Allergy (Severe, Verified 01/27/24 15:05) Anaphylaxis piperacillin sodium (From Zosyn) Allergy (Severe, Verified 01/27/24 15:05) Anaphylaxis tazobactam sodium (From Zosyn) Allergy (Severe, Verified 01/27/24 15:05) Anaphylaxis vancomycin Allergy (Severe, Verified 01/27/24 15:05) Anaphylaxis bee pollen (Bee Pollen) Allergy (Mild, Verified 01/27/24 15:05) Swelling tramadol Adverse Reaction (Severe, Verified 01/27/24 15:05) Nausea/Vom/Diarrhea Medications ???Medication ???Instructions ???Recorded ???Confirmed ???Type albuterol sulfate 90 mcg/actuation 90 mcg inhalation Q6H PRN PRN 02/06/19 01/27/24 History aerosol inhaler Wheezing prenat.vits,clement,min-iron -folic 1 tab PO DAILY PRN 12/20/21 01/27/24 History epinephrine 0.3 mg/0.3 mL 0.3 mg IM ONCE 04/23/22 01/27/24 History injection, auto-injector cholecalciferol (vitamin D3) 50 2,000 unit PO DAILY Check with 04/10/23 01/27/24 History mcg (2,000 unit) capsule primary doctor hydroxychloroquine 200 mg tablet 400 mg PO DAILY 10/16/23 01/27/24 History (Plaquenil) lubiprostone 8 mcg capsule 8 mcg PO DAILY 10/16/23 01/27/24 History (Amitiza) coenzyme Q10 200 mg capsule (Co 200 mg PO QDAY 01/27/24 01/27/24 History Q-10) fluticasone 500 mcg-salmeterol 50 1 inh inhalation BID 01/27/24 01/27/24 History mcg/dose blistr powdr for inhalation (Advair Diskus) loratadine 10 mg tablet mg PO 01/27/24 01/27/24 History nadide (bulk) 100 % powder ea miscellaneous 01/27/24 01/27/24 History (Nicotinamide Adenine Dinucleotide (NAD)) pterostilbene 50 mg capsule 150 mg PO 01/27/24 01/27/24 History rimegepant 75 mg disintegrating mg PO Migraines 01/27/24 01/27/24 History tablet (Nurtec ODT) PFSH Medical History (Updated 01/28/24 @ 06:[address] Mario Lockwood, DO) Obsessive compulsive disorder Abnormal mammogram of left breast Vitamin B deficiency Liver hemangioma Gestational HTN Ectopic COVID-19 Anxiety History of vaginal delivery PFO (patent foramen ovale) Hypoglycemia Hypocalcemia Breast cyst Arthritis Migraines Nausea vomiting Cephalalgia Fever Rheumatoid arthritis Surgical History History of left breast biopsy ( 08/2022) S/P exploratory laparotomy History of cholecystectomy History of right oophorectomy Hx of appendectomy Family History Grandmother Arthritis Cancer ovarian, great grandmother Mother Arthritis Depression Father Hypertension Other CAD (coronary artery disease) Mixed hyperlipidemia Social History Smoking Status: Former smoker alcohol intake: current alcohol intake frequency: a few times a month Alcohol type: wine caffeine: Yes Type: coffee Number of servings: 1 and tea Number of servings: 1 what type of physical activity do you participate in: walking, running, bicycling, yoga and weight training frequency: 5-6 times per week HPI History of Present Illness History provided by: patient Chief complaint: I do not understand people HPI: Michelle Mauricio is a 38 year old female who presents today for new patient evaluation. Patient admits to having seen Coral Will at [place] in 2011 secondary to some anxiety and to ensure I'm not crazy. Patient was potentially being treated for OCD at that time. Was also going through a divorce around this time as well. Admits to having significant anxiety and was told by PCP that she may need someone else to help manage medications. Patient voices that she has significant difficulty understanding people. Specifically feels like she is told that she takes things out of context, or comes across as blunt without it meaning to be malicious. Admits to having had similar symptoms since she was child. Feels like she does not do well without set structure. Admits to easily getting frustrated in social situations. Has some persistent situation where she will think about things (more content not included)... Normal [facility] LABORATORYOrdered By: SYSTEM SYSTEM on 12-21-2023 HCG Qn mIU/mL Invalid Interpretation Code AO ADM SS Comment on above: Interpretive Data: H CG Levels with Gestation age: 0.2- 1 week. . . . . . . . . . . . . . . 5 - 50 mIU/mL 1-2 weeks . . . . . . . . . . . . . . . 50 - 500 mIU/mL 2-3 weeks . . . . . . . . . . . . . . . 100 - 5,000 mIU/ml 3-4 weeks . . . . . . . . . . . . . . . 500 - 10,000 mIU/mL 4-5 weeks . . . . . . . . . . . . . . . 1,000 - 5,000 mIU/mL 5-6 weeks . . . . . . . . . . . . . . . 10,000 - 100,000 mIU/mL 6-8 weeks . . . . . . . . . . . . . . . 15,000 - 200,000 mIU/mL 2-3 months . . . . . . . . . . . . . . . 10,000 - 100,000 mIU/mL Progesterone [Mass/Vol] 7.6 ng/mL Invalid Interpretation Code [facility] Comment on above: Interpretive Data: A dult Female Progesterone Reference Ranges: Follicular phase <0.21 - 1.40 ng/mL Luteal phase 3.34 - 25.56 ng/mL Mid-Luteal phase 4.44 - 28.03 ng/mL Postmenopausal <0.21 - 0.73 ng/ml Female: First trimester 11.22 - 90.00 ng/ml Second trimester 25.55 - 89.40 ng/ml Third trimester 48.40 - 422.50 ng/ml LABORATORYOrdered By: SYSTEM SYSTEM on 12-03-2023 E2 [Mass/Vol] 62.18 pg/mL Invalid Interpretation Code [facility] Comment on above: Interpretive Data: * *Note - New Reference Range in effect 19 Adult Female E2 Reference Ranges: Follicular phase 19.5 - 144.2 pg/mL Midcycle 63.9 - 356.7 pg/mL Luteal phase 55.8 - 214.2 pg/mL Post menopausal 0 - 33.2 pg/mL Follitropin Qn 11.1 m[IU]/mL Invalid Interpretation Code [facility] Comment on above: Interpretive Data: A dult Female FSH Reference Ranges (01/09/99): Follicular phase 2.5 - 10.2 mIU/mL Midcycle phase 3.4 - 33.4 mIU/mL Luteal phase 1.5 - 9.1 mIU/mL Post menopausal 23.0 -116.3 mIU/mL Adult Male: 1.4 - 18.1 mIU/mL Lutropin Qn 4.3 m[IU]/mL Invalid Interpretation Code [facility] Comment on above: Interpretive Data: * *Note - New Reference Range in effect 19 Adult Female LH Reference Ranges: Follicular phase 1.9 - 12.5 mIU/mL Midcycle phase 8.7 - 76.3 mIU/mL Luteal phase 0.5 - 16.9 mIU/mL Post menopausal 5.0 - 55.2 mIU/mL LABORATORYOrdered By: SYSTEM SYSTEM on 12-01-2023 Progesterone [Mass/Vol] 0.5 ng/mL Invalid Interpretation Code [facility] Comment on above: Interpretive Data: A dult Female Progesterone Reference Ranges: Follicular phase <0.21 - 1.40 ng/mL Luteal phase 3.34 - 25.56 ng/mL Mid-Luteal phase 4.44 - 28.03 ng/mL Postmenopausal <0.21 - 0.73 ng/ml Female: First trimester 11.22 - 90.00 ng/ml Second trimester 25.55 - 89.40 ng/ml Third trimester 48.40 - 422.50 ng/ml Breast Limited Unilateralon 11-27-2023 Breast Limited Unilateral [facility] Imaging Services [address] [place], [place] [id number] Breast Limited Unilateral MR#: [id number] Acct: [id number] Name: MICHELLE MAURICIO Rep #: [id number] : 1985 F 37 From: Ladarius kulkarni MD PCP: Dr. Gato Dc MD Status: REG CLI Study: Breast Limited Unilateral Date of Exam: Exam# [id number] Ordering Dr: Gato Dc MD [id number] STUDY: ULTRASOUND BREAST - LEFT REASON FOR EXAM: Female, 37 years old. Left breast biopsy. TECHNIQUE: Axial and longitudinal images of the LEFT breast were performed with a high resolution ultrasound transducer. # OF IMAGES: 21 COMPARISON: Comparison is made with prior mammogram done earlier today as well as prior sonogram of left breast dated January 29, 2023. FINDINGS: LEFT Breast: There is a 7 mm x 6 mm x 3 mm cyst at the 12:00 position breast at 4 cm from nipple. There is a 2 cm x 1.9 cm x 0.8 cm left axillary lymph node. This appears to be benign. There is a 6 mm x 8 mm x 4 mm hypoechoic nodule at the 1:00 position breast at 4 cm from nipple. A tissue clip marker is seen within it. US/Breast Limited Unilateral IMPRESSION: Stable examination. ASSESSMENT CATEGORY: BIRADS Category 2: Benign. A letter regarding these results will be sent to the patient by the facility within 30 days. Electronically Signed: Ladarius Mensah MD at 13:14 EDT Reading Location ID and State: [facility] / [place] , Service support , CC: Dr. Gato Dc MD Oil Seal Assembler: Signed Normal [facility] DIAG MAMM W/CAD, BILATon DIAG MAMM W/CAD, [facility] Imaging Services [address] [place], [place] [id number] DIAG MAMM W/CAD, [facility] MR#: [id number] Acct: [id number] Name: MICHELLE MAURICIO Rep #: [id number] : 1985 F 37 From: Ladarius kulkarni MD PCP: Dr. Gato Dc MD Status: REG CLI Study: DIAG MAMM W/CAD, BILAT Date of Exam: 11/27/23 Exam# [id number] Ordering Dr: Gato Dc MD [id number] MAMMOGRAPHY - BILATERAL DIAGNOSTIC REASON FOR EXAM: Female, 37 years old. Occasional pain in the upper outer quadrant of the right breast. PERTINENT HISTORY: Non-contributory. Prior left ultrasound-guided breast biopsy. TECHNIQUE: Digital bilateral breast denny (3D mammographic acquisition) in the CC and MLO projections. 2-D mediolateral oblique (MLO) and craniocaudad (CC) views of both breasts were obtained. CAD: Full Field Digital Mammography with Computer Added Detection was performed. COMPARISON: Comparison is made with prior study dated May 16, 2022 and November 05, 2017. FINDINGS: Breast Composition: The breasts are extremely dense, which lowers the sensitivity of mammography. There are no dominant masses or suspicious calcifications. 2 tissue markers are seen in the upper outer quadrant of the left breast. No other significant abnormalities are identified. There has been no significant change since the prior study. BI/DIAG MAMM W/CAD, BILAT IMPRESSION: Stable bilateral diagnostic mammogram. One year follow-up recommended. (A) ASSESSMENT CATEGORY: BIRADS Category 2: Benign. A letter regarding these results will be sent to the patient by the facility within 30 days. Approximately 10% of breast cancers are not detected by mammography. A normal mammogram should not delay biopsy of a clinically suspicious abnormality. Electronically Signed: Ladarius Mensah MD at 11:36 EDT , CC: Dr. Gato Dc MD Oil Seal Assembler: Signed Normal [facility] Antimullerian Hormone, Serum on 11-23-2023 AMH, SERUM 0.172 ng/mL Normal . [facility] Comment on above: Order Comment: DR KATHRYN DUTTA ORDERED VITD,PTH,CMPNP.MENDEZ ORDERED AMH. TSH REFLEX TO FT4 Result Comment: For assays employing antibodies, the possibility exists for interference by heterophile antibodies in the samples.1 1.Diego Mcgovern Interferences in Immunoassays - still a threat. Clin. Chem. 2000; 46: 7838-4370. This test was developed and its performance characteristics determined by [employer]. It has not been cleared or approved by the Food and Drug Administration. Reference Range: Females 36 - 40y: 0.42 - 8.34 Median 1.69 AMH concentrations of >= 1.06 ng/mL is correlated with a better response to ovarian stimulation, produced more retrievable oocytes and higher odds of live according to Jooer et al. Fertility and Sterility. 2010: 94:1632-0360. The current AMH test method correlates with the study method with a slope of 0.94. Females at risk of ovarian hyperstimulation syndrome or polycystic ovarian syndrome (PCOS) may exhibit elevated serum AMH concentrations. AMH levels from PCOS patients may be 2 to 5 fold higher than age-appropriate reference interval values. Granulosa cell tumors of the ovary may secrete AMH along with other tumor markers. Elevated AMH is not specific for malignancy, and the assay should not be used exclusively to diagnose or exclude an AMH-secreting ovarian tumor. Performed at: [facility] [address] [place] [id number] [employer] Boring Machine Helper: Fernando Dewitt MD, Phone: [phone] Performed By: #### L 004.0693, W281.5502 ####[facility] [address] [place], [address] Comprehensive Metabolic Prof ilon 11-20-2023 Albumin [Mass/Vol] 3.4 g/dL Normal 3.2-5.0 [facility] Comment on above: Order Comment: Order Date: 11/17/23Order Info: 0786-1 - CMPDR SCHINNER ORDERED VITD,PTH,CMPNP.MENDEZ ORDERED AMH. TSH REFLEX TO FT4 Performed By: #### L 509.1000, L500.4050, L506.1000 ####[facility] [address] [place], [address] Albumin/Globulin [Mass ratio] 1.0 {ratio} Normal 0.9-2.[address] [facility] Comment on above: Order Comment: Order Date: 11/17/23Order Info: 0786-1 - CMPDR SCHNANETTENER ORDERED VITD,PTH,CMPNP.MENDEZ ORDERED AMH. TSH REFLEX TO FT4 Performed By: #### L 509.1000, L500.4050, L506.1000 ####[facility] [address] [place], [address] ALK P 55 U/L Normal 45-[address] [facility] Comment on above: Order Comment: Order Date: 11/17/23Order Info: 0786- - CMPDR DEXTOBIN ORDERED VITD,PTH,CMPNP.MENDEZ ORDERED AMH. TSH REFLEX TO FT4 Performed By: #### L 509.1000, L500.4050, L506.1000 ####[facility] [address] [place], [address] ALT [Catalytic activity/Vol] 13 U/L Normal 13-[address] [facility] Comment on above: Order Comment: Order Date: 11/17/23Order Info: 0786- - CMPDR SCHNANETTENER ORDERED VITD,PTH,CMPNP.MENDEZ ORDERED AMH. TSH REFLEX TO FT4 Performed By: #### L 509.1000, L500.4050, L506.1000 ####[facility] [address] [place], [address] AST [Catalytic activity/Vol] 11 U/L Low 15-[address] [facility] Comment on above: Order Comment: Order Date: 11/17/23Order Info: 0786-1 - CMPDR SCHNANETTENER ORDERED VITD,PTH,CMPNP.MENDEZ ORDERED AMH. TSH REFLEX TO FT4 Performed By: #### L 509.1000, L500.4050, L506.1000 ####[facility] [address] [place], [address] Bilirubin [Mass/Vol] 0.20 mg/dL Normal 0.20-1.00 [facility] Comment on above: Order Comment: Order Date: 11/17/23Order Info: 0786-1 - CMPDR SCHINNER ORDERED VITD,PTH,CMPNP.MENDEZ ORDERED AMH. TSH REFLEX TO FT4 Result Comment: For patients on eltrombopag therapy, use of Dimension [place] TBIL is not recommended. Performed By: #### L 509.1000, L500.4050, L506.1000 ####[facility] [address] [place], [address] BUN/CRE 17.8 RATIO Normal 10-[address] [facility] Comment on above: Order Comment: Order Date: 11/17/23Order Info: 0786-1 - CMPDR SCHTOBIN ORDERED VITD,PTH,CMPNP.MENDEZ ORDERED AMH. TSH REFLEX TO FT4 Performed By: #### L 509.1000, L500.4050, L506.1000 ####[facility] [address] [place], [address] CA,Total 8.6 mg/dL Normal 8.5-10.[address] [facility] Comment on above: Order Comment: Order Date: 11/17/23Order Info: 0786-1 - CMPDR SCHINNER ORDERED VITD,PTH,CMPNP.MENDEZ ORDERED AMH. TSH REFLEX TO FT4 Performed By: #### L 509.1000, L500.4050, L506.1000 ####[facility] [address] [place], [address] Chloride [Moles/Vol] 112 mmol/L High 98-107 [facility] Comment on above: Order Comment: Order Date: 11/17/23Order Info: 0786-1 - CMPDR SCHINNER ORDERED VITD,PTH,CMPNP.MENDEZ ORDERED AMH. TSH REFLEX TO FT4 Performed By: #### L 509.1000, L500.4050, L506.1000 ####[facility] [address] [place], [address] CO2 [Moles/Vol] 26.0 mmol/L Normal 21.0-32.[address] [facility] Comment on above: Order Comment: Order Date: 11/17/23Order Info: 0786-1 - CMPDR DC ORDERED VITD,PTH,CMPNP.MENDEZ ORDERED AMH. TSH REFLEX TO FT4 Performed By: #### L 509.1000, L500.4050, L506.1000 ####[facility] [address] [place], [address] Creatinine [Mass/Vol] 0.67 mg/dL Normal 0.55-1.02 [facility] Comment on above: Order Comment: Order Date: 11/17/23Order Info: 0786-1 - STELLA DC ORDERED VITD,PTH,CMPNP.MENDEZ ORDERED AMH. TSH REFLEX TO FT4 Result Comment: The validity of the calculated GFR GFRAA in patients over 70 years has not been determined. Clinical correlation is essential. Performed By: #### L 509.1000, L500.4050, L506.1000 ####[facility] [address] [place], [address] EST GFR - AA 125 mL/min Normal >[address] [facility] Comment on above: Order Comment: Order Date: 11/17/23Order Info: 0786-1 - CMPDR DC ORDERED VITD,PTH,CMPNP.MENDEZ ORDERED AMH. TSH REFLEX TO FT4 Result Comment: Afri can Senegalese GFR Calc Performed By: #### L 509.1000, L500.4050, L506.1000 ####[facility] [address] [place], [address] GAP 3 Low 5-[address] [facility] Comment on above: Order Comment: Order Date: 11/17/23Order Info: 0786-1 - CMPDR SCHINNER ORDERED VITD,PTH,CMPNP.MENDEZ ORDERED AMH. TSH REFLEX TO FT4 Performed By: #### L 509.1000, L500.4050, L506.1000 ####[facility] [address] [place], [address] GFR/1.73 sq M.predicted among non-blacks MDRD (S/P/Bld) [Vol rate/Area] 104 mL/min/{1.73_m2} Normal >[address] [facility] Comment on above: Order Comment: Order Date: 11/17/23Order Info: 785-1 - CMPDR SCHANNETTENER ORDERED VITD,PTH,CMPNP.MENDEZ ORDERED AMH. TSH REFLEX TO FT4 Result Comment: Non- GFR Calc Performed By: #### L 509.1000, L500.4050, L506.1000 ####[facility] [address] [place], [address] Globulin (S) [Mass/Vol] 3.3 g/dL Normal 2.2-4.2 [facility] Comment on above: Order Comment: Order Date: 11/17/23Order Info: 0786-1 - CMPDR SCHNANETTENER ORDERED VITD,PTH,CMPNP.MENDEZ ORDERED AMH. TSH REFLEX TO FT4 Performed By: #### L 509.1000, L500.4050, L506.1000 ####[facility] [address] [place], [address] Glucose [Mass/Vol] 90 mg/dL Normal 74-106 [facility] Comment on above: Order Comment: Order Date: 11/17/23Order Info: 0786-1 - CMPDR SCHNANETTENER ORDERED VITD,PTH,CMPNP.MENDEZ ORDERED AMH. TSH REFLEX TO FT4 Performed By: #### L 509.1000, L500.4050, L506.1000 ####[facility] [address] [place], [address] Potassium [Moles/Vol] 4.0 mmol/L Normal 3.5-5.1 [facility] Comment on above: Order Comment: Order Date: 11/17/23Order Info: 0786-1 - CMPDR SCHINNER ORDERED VITD,PTH,CMPNP.MENDEZ ORDERED AMH. TSH REFLEX TO FT4 Performed By: #### L 509.1000, L500.4050, L506.1000 ####[facility] [address] [place], [address] Sodium [Moles/Vol] 140 mmol/L Normal 136-145 [facility] Comment on above: Order Comment: Order Date: 11/17/23Order Info: 0786-1 - CMPDR SCHINNER ORDERED VITD,PTH,CMPNP.MENDEZ ORDERED AMH. TSH REFLEX TO FT4 Performed By: #### L 509.1000, L500.4050, L506.1000 ####[facility] [address] [place], [address] T PROT 6.7 g/dL Normal 6.4-8.[address] [facility] Comment on above: Order Comment: Order Date: 11/17/23Order Info: 0786-1 - CMPDR SCHINNER ORDERED VITD,PTH,CMPNP.MENDEZ ORDERED AMH. TSH REFLEX TO FT4 Performed By: #### L 509.1000, L500.4050, L506.1000 ####[facility] [address] [place], [address] Urea nitrogen [Mass/Vol] 12 mg/dL Normal 7-[address] [facility] Comment on above: Order Comment: Order Date: 11/17/23Order Info: 0786-1 - CMPDR SCHINNER ORDERED VITD,PTH,CMPNP.MENDEZ ORDERED AMH. TSH REFLEX TO FT4 Performed By: #### L 509.1000, L500.4050, L506.1000 ####[facility] [address] [place], [address] PTHINon 11-20-2023 PTH 94.0 pg/mL High 18.4-80.[address] [facility] Comment on above: Order Comment: DR KATHRYN DUTTA ORDERED VITD,PTH,CMPNP.MENDEZ ORDERED AMH. TSH REFLEX TO PL1Rixwt Date: 11/17/23Order Info: 0565-1 - PTHIN Performed By: #### L 509.1000, L500.4050, L506.1000 ####[facility] [address] [place], [address] Thyroid Stim Hormone (TSH)on 11-20-2023 TSH 1.670 uIU/mL Normal 0.358-3.[address] [facility] Comment on above: Order Comment: Order Date: 11/17/23Order Info: 0786-1 - CMPDR LE ORDERED VITD,PTH,CMPNP.MENDEZ ORDERED AMH. TSH REFLEX TO FT4 Performed By: #### L 803.3000, L501.9520 ####[facility] [address] [place], [address] Vitamin D,25 Hydroxyon 11-19 Vitamin D 25-OH 23.3 ng/mL Normal [facility] Comment on above: Order Comment: DR KATHRYN DUTTA ORDERED VITD,PTH,CMPNP.MENDEZ ORDERED AMH. TSH REFLEX TO UL3Snabx Date: 11/17/23Order Info: [id number] - VITD25 Result Comment: Renee min D 25(OH) Status Range Deficiency <20 ng/mL (50nmol/L) Insufficiency 20 - 30 ng/mL (50 - 75 nmol/L) Sufficiency 30 - 100 ng/mL (75 - 250 nmol/L) Toxicity >100 ng/mL (>250 nmol/L) Performed By: #### L 509.1000, L500.4050, L506.1000 ####[facility] [address] [place], [address] Abdomen/Pelvis WITH Contrast on 11-05-2023 Abdomen/Pelvis WITH Contrast [facility] Imaging Services [address] [place] [address] Abdomen/Pelvis WITH Contrast MR#: [id number] Acct: [id number] Name: MICHELLE MAURICIO Rep #: [id number] : 1985 F 37 From: Nahun Goodrich PCP: Dr. Gato Dc MD Status: [facility] Study: Abdomen/Pelvis WITH Contrast Date of Exam: Exam# [id number] Ordering Dr: Aroldo Miramontes DO [id number] EXAM: CT ABDOMEN AND PELVIS WITH INTRAVENOUS CONTRAST CLINICAL INDICATION: RIGHT SIDED AB PAIN X YEARS. PRIOR APPY,XAVIER AND RIGHT OVARY REMOVED TECHNIQUE: Helically acquired images were obtained of the abdomen and pelvis with intravenous contrast. This CT exam was performed using one or more of the following dose reduction techniques: automated exposure control, adjustment of the mA and/or kV according to patient size, and/or use of iterative reconstruction technique. CONTRAST: 100 cc of Isovue-370 IV. RADIATION DOSE: CTDIvol = 9.91 mGy, DLP = 526.25 mGy-cm COMPARISON: No relevant prior studies available. FINDINGS: LOWER THORAX: Unremarkable. Lung bases are clear. No cardiomegaly. No significant pericardial effusion. ABDOMEN: LIVER: Unremarkable. Homogeneous. No focal mass. GALLBLADDER AND BILE DUCTS: Cholecystectomy. No intra- or extrahepatic biliary ductal dilation. PANCREAS: Unremarkable. No focal cystic or solid mass. SPLEEN: Unremarkable. Normal size without focal cystic or solid mass. ADRENALS: Unremarkable. No nodules. KIDNEYS AND URETERS: Simple bilateral renal cysts. No follow-up of these simple cysts is necessary. Normal renal size and position. No hydronephrosis. STOMACH AND BOWEL: Unremarkable. No stomach or bowel distention. No focal inflammatory change. PELVIS: APPENDIX: Status post appendectomy. BLADDER: Unremarkable. REPRODUCTIVE: Simple left ovarian cyst or follicle measuring 3.2 x 1.8 x 2.8 cm. No follow-up is necessary. ABDOMEN and PELVIS: INTRAPERITONEAL SPACE: Unremarkable. No ascites or other fluid collection. No free air. BONES/JOINTS: Unremarkable. No suspicious lytic or blastic abnormality. SOFT TISSUES: Small fat-containing paraumbilical hernia. VASCULATURE: Unremarkable. Abdominal aorta is non-dilated. LYMPH NODES: Unremarkable. No enlarged lymph nodes. CT/Abdomen/Pelvis WITH Contrast IMPRESSION: 1. No acute abdominal pelvic abnormality. 2. Cholecystectomy. 3. Small fat-containing paraumbilical hernia. No bowel involvement. Electronically Signed: Nahun Hines MD at 22:13 EDT , CC: Dr. Gato Dc MD; Aroldo Friend, Oil Seal Assembler: Signed Normal [facility] ANCAon 10-22-2023 Atypical pANCA <1:20 Normal Neg:<1:[address] [facility] Comment on above: Result Comment: The atypical pANCA pattern has been observed in a significant percentage of patients with ulcerative colitis, primary sclerosing cholangitis and autoimmune hepatitis. Performed By: #### L 101.9900, L3100.5400, L509.6000, L3300.1200, L501.6710, L3300.1800, L2100.0000, L504.2610 ####[facility] [address] [place], [address] Cytoplasmic Ab <1:20 Normal Neg:<1:[address] [facility] Comment on above: Performed By: #### L 101.9900, L3100.5400, L509.6000, L3300.1200, L501.6710, L3300.1800, L2100.0000, L504.2610 ####[facility] [address] [place], [address] Perinuclear Ab. <1:20 Normal Neg:<1:[address] [facility] Comment on above: Result Comment: The presence of positive fluorescence exhibiting P-ANCA or C-ANCA patterns alone is not specific for the diagnosis of Cristiane's Granulomatosis (WG) or microscopic polyangiitis. Decisions about treatment should not be based solely on ANCA IFA results. The International ANCA Group Consensus recommends follow up testing of positive sera with both NE- 3 and MPO-ANCA enzyme immunoassays. As many as 5% serum samples are positive only by EIA. Ref. AM J Clin Pathol 1999;111:507-513. Performed By: #### L 101.9900, L3100.5400, L509.6000, L3300.1200, L501.6710, L3300.1800, L2100.0000, L504.2610 ####[facility] [address] [place], [place], [phone](582) Gastrin, Serumon 10-22-2023 GASTRIN 19 pg/mL Normal 0-[address] [facility] Comment on above: Result Comment: [facility] [employer] 2000 Immunochemiluminometric assay (ICMA) Values obtained with different assay methods or kits cannot be used interchangeably. Results cannot be interpreted as absolute evidence of the presence or absence of malignant disease. Performed By: #### L 101.9900, L3100.5400, L509.6000, L3300.1200, L501.6710, L3300.1800, L2100.0000, L504.2610 ####[facility] [address] [place], [place], [phone](607) L2100.0000on 10-22-2023 ACCA 17 units Normal 0-[address] [facility] Comment on above: Result Comment: Nega tive: <80 Equivocal: 80-90 Positive: >90 Performed By: #### L 101.9900, L3100.5400, L509.6000, L3300.1200, L501.6710, L3300.1800, L2100.0000, L504.2610 ####[facility] [address] [place], [place], [phone](955) ALCA 27 units Normal 0-[address] [facility] Comment on above: Result Comment: Nega tive:<55 Equivocal: 55-60 Positive: >60 Performed By: #### L 101.9900, L3100.5400, L509.6000, L3300.1200, L501.6710, L3300.1800, L2100.0000, L504.2610 ####[facility] [address] [place], [place], [phone](212) AMCA 80 units Normal 0-[address] [facility] Comment on above: Result Comment: Nega tive: <90 Equivocal: 90-100 Positive: >100 This test was developed and its performance characteristics determined by [facility]. It has not been cleared or approved by the Food and Drug Administration. The FDA has determined that such clearance or approval is not necessary. Performed By: #### L 101.9900, L3100.5400, L509.6000, L3300.1200, L501.6710, L3300.1800, L2100.0000, L504.2610 ####[facility] [address] [place], [address] Atypical pANCA Negative Normal Negative [facility] Comment on above: Performed By: #### L 101.9900, L3100.5400, L509.6000, L3300.1200, L501.6710, L3300.1800, L2100.0000, L504.2610 ####[facility] [address] [place], [place], [phone]) COMMENT Comment Normal . [facility] Comment on above: Result Comment: Shawna judi is not suggestive of Inflammatory Bowel Disease Performed By: #### L 101.9900, L3100.5400, L509.6000, L3300.1200, L501.6710, L3300.1800, L2100.0000, L504.2610 ####[facility] [address] [place], [address] Jailene 23 units Normal 0-[address] [facility] Comment on above: Result Comment: Nega tive: <45 Equivocal: 45-50 Positive: >50 Performed By: #### L 101.9900, L3100.5400, L509.6000, L3300.1200, L501.6710, L3300.1800, L2100.0000, L504.2610 ####[facility] [address] [place], [address] PROLACTIN 4465on 10-22-2023 PROLACTIN 9.8 ng/mL Normal 4.8-33.[address] [facility] Comment on above: Result Comment: Perf ormed at: - [facility] [id number] [employer] Helper: Hank Schumacher MD, Phone: [phone] Performed at: [address] [id number] [employer] Helper: Braydon Green PhD, Phone: [phone] Performed By: #### L 101.9900, L3100.5400, L509.6000, L3300.1200, L501.6710, L3300.1800, L2100.0000, L504.2610 ####[facility] [address] [place], [address] CORTISOL SERUMon 10-20-2023 CORTISOL 22.40 ug/dL Normal 3.44-22.[address] [facility] Comment on above: Result Comment: Adul t (AM) 5.27 - 22.45 ug/dL Adult (PM) 3.44 - 16.76 ug/dL Please note revised CORTISOL reference range effective 2019. Performed By: #### L 101.9900, L3100.5400, L509.6000, L3300.1200, L501.6710, L3300.1800, L2100.0000, L504.2610 #### [facility] [address] [place], [place], [address] CRPon 10-20-2023 C-REACTIVE PROT < 2.90 Normal 0.0-3.[address] [facility] Comment on above: Order Comment: 1 Result Comment: C-Re active Protein (CRP) provides useful information for the diagnosis, therapy and monitoring of inflammatory processes and associated diseases. For the evaluation of Relative Risk for Cardiovascular Disease, a High Sensitivity CRP (HSCRP) should be ordered. Performed By: #### L 101.9900, L3100.5400, L509.6000, L3300.1200, L501.6710, L3300.1800, L2100.0000, L504.2610 #### [facility] [address] [place], [address] Erythrocyte Sed Rateon 10-19 SED RATE < 1 Normal 0-30 [facility] Comment on above: Performed By: #### L 101.9900, L3100.5400, L509.6000, L3300.1200, L501.6710, L3300.1800, L2100.0000, L504.2610 #### [facility] [address] [place], [address] LDHon 10-20-2023 LDH 150 U/L Normal 84-[address] [facility] Comment on above: Order Comment: 1 Performed By: #### L 101.9900, L3100.5400, L509.6000, L3300.1200, L501.6710, L3300.1800, L2100.0000, L504.2610 ####[facility] [address] [place], [place], [address] Gastroenterology Visit Repor ton 10-16-2023 Gastroenterology Visit Report [facility] [address] [place] [address] OFFICE VISIT Date of Service: 10/16/23 MR#: [id number] Acct: [id number] Name: MICHELLE MAURICIO Rep #: [id number] : 1985 Provider: Aroldo Miramontes DO Age/Sex: 37/F Location: [facility] Status: Signed Intake Vital Signs 06/10/22 07:46 04/10/23 08:51 Height 5 ft 8 in 5 ft 8 in Intake Visit Reasons: 6 MO FU Allergies cephalexin (From Keflex) Allergy (Severe, Verified 04/10/23 09:07) Hives doxycycline Allergy (Severe, Verified 04/10/23 09:07) Unknown Penicillins Allergy (Severe, Verified 04/10/23 09:07) Anaphylaxis piperacillin sodium (From Zosyn) Allergy (Severe, Verified 04/10/23 09:07) Anaphylaxis tazobactam sodium (From Zosyn) Allergy (Severe, Verified 04/10/23 09:07) Anaphylaxis vancomycin Allergy (Severe, Verified 04/10/23 09:07) Anaphylaxis bee pollen (Bee Pollen) Allergy (Mild, Verified 04/10/23 09:07) Swelling tramadol Adverse Reaction (Severe, Verified 04/10/23 09:07) Nausea/Vom/Diarrhea Medications ???Medication ???Instructions ???Recorded ???Confirmed ???Type albuterol sulfate 90 mcg/actuation 90 mcg inhalation Q6H PRN PRN 02/06/19 10/16/23 History aerosol inhaler Wheezing prenat.vits,clement,min-iron -folic 1 tab PO DAILY PRN 12/20/21 10/16/23 History epinephrine 0.3 mg/0.3 mL 0.3 mg IM ONCE 04/23/22 10/16/23 History injection, auto-injector aspirin 81 mg tablet,delayed 81 mg PO DAILY #30 tabs 04/10/23 10/16/23 Rx release (Adult Aspirin Regimen) cholecalciferol (vitamin D3) 50 2,000 unit PO DAILY Check with 04/10/23 10/16/23 History mcg (2,000 unit) capsule primary doctor hydroxychloroquine 200 mg tablet 400 mg PO DAILY 10/16/23 10/16/23 History (Plaquenil) lubiprostone 8 mcg capsule 8 mcg PO DAILY 10/16/23 History (Amitiza) PFSH Medical History Abnormal mammogram of left breast Anxiety Arthritis Breast cyst Cephalalgia COVID-19 Ectopic Fever Gestational HTN History of vaginal delivery Hypocalcemia Hypoglycemia Liver hemangioma Migraines Nausea vomiting PFO (patent foramen ovale) Rheumatoid arthritis Vitamin B deficiency Surgical History History of cholecystectomy History of left breast biopsy ( 08/2022) History of right oophorectomy Hx of appendectomy S/P exploratory laparotomy Family History Grandmother Arthritis Cancer ovarian, great grandmother Mother Arthritis Depression Father Hypertension Other CAD (coronary artery disease) Mixed hyperlipidemia Social History Smoking Status: Former smoker alcohol intake: current alcohol intake frequency: a few times a month Alcohol type: wine caffeine: Yes Type: coffee Number of servings: 1 and tea Number of servings: 1 what type of physical activity do you participate in: walking, running, bicycling, yoga and weight training frequency: 5-6 times per week HPI HPI Details: MICHELLE MAURICIO, is a 37 F who presents to the office today for follow up. 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 US RUQ 4..22 abd pain hepatomegaly 19.9cm with normal echogenicity; hepatic nodule 1.7x2.1x2.6cm suggestive of hemangioma GI [facility] established 7.. for possible liver disease. CT abd/pel [facility] 7.. hepatic measurement 21cm (previously 18.5cm with normal liver contour; hepatic lesion 1.5cm with peripheral nodular enhancement compatible with hemangioma; normal spleen; renal cysts. CT abd/pel [facility] ..22 mildly enlarged liver; hepatic lesion 1.5cm consistent with hemangioma, unchanged. *[facility] established 6.9.23 constipation with no BM that can last up to three weeks with nausea, bloating and abdominal pain; has attempted miralax, fiber, senna were all ineffective, GI prescribed Linzess 72mcg caused liquid stools. In the last few months she has had loose stools. Constipation has been a problem since she was a child. Enlarged liver, unknown family history of liver disease (feels her father likely has liver disease r/t alcoholism); history of preeclampsia twice; no diabetes, recently had a baby and is working at [employer]. s/p cholecystectomy r/t RUQ pain which resolved symptoms. Biochemical CBC, ESR, coag, CMP, A1c, LFT, ammonia, LDH, CRP, HIV, hepatitis, BUBBA, AFP, AMA, ASM, YOHAN comp, ANCA, ceruloplasmin, copper, haptoglobin without pertinent abnormality. US and elastography 6.30.23 hep (more content not included)... Normal [facility] MR Brain WO and W contrast I Von 08-05-2023 IMPRESSION: Age-appropriate MRI of the brain. No evidence of an acute intracranial process, mass, or pathologic enhancement. Oil Seal Assembler: JULISSA Transcribe Date/Time: Lon 19 2024 3:09P Dictated by : ALBINO STARR MD This examination was interpreted and the report reviewed and electronically signed by: ALBINO STARR MD on Aug 05 2023 3:15PM [facility] DIVISION OF RADIOLOGY * * *Final Report* * * DATE OF EXAM: Aug 05 2023 3:08PM [facility] 0295 - MRI BRAIN WO/W IVCON / PROCEDURE REASON: G43.909 * * * * Physician Interpretation * * * * EXAMINATION: MRI BRAIN WO/W IVCON CLINICAL HISTORY: Headaches TECHNIQUE: Routine brain MRI protocol without and with contrast including diffusion images. MQ: MRBWOW_2 Contrast: 17 mL Dotarem IV COMPARISON: None. RESULT: Acute Change: There is no evidence of an acute intracranial process. Hemorrhage: No evidence of prior parenchymal hemorrhage on the susceptibility weighted images. Mass Lesion/ Mass Effect: No evidence of an intracranial mass or extra-axial fluid collection. No abnormal parenchymal or leptomeningeal enhancement is noted following contrast administration. No significant mass effect. Chronic Change: The white matter is within normal limits of signal intensity for age. Parenchyma: No significant volume loss for age. The brain parenchyma is otherwise within normal limits of signal intensity and morphology. Ventricles: Normal caliber and morphology. Skull Base: Hypothalamic and pituitary region are grossly normal. Craniocervical junction is normal. No significant marrow replacement process. Vasculature: Major intracranial arterial structures, and dural venous sinuses show typical flow void, suggesting patency by spin echo criteria. Other: The visualized paranasal sinuses and mastoid air cells are clear. The orbits and extracranial soft tissues are unremarkable. DIVISION OF RADIOLOGY Provider, [facility] - 08/05/2023 * * *Final Report* * * DATE OF EXAM: Aug 05 2023 3:08PM [facility] 0295 - MRI BRAIN WO/W IVCON / PROCEDURE REASON: G43.909 * * * * Physician Interpretation * * * * EXAMINATION: MRI BRAIN WO/W IVCON CLINICAL HISTORY: Headaches TECHNIQUE: Routine brain MRI protocol without and with contrast including diffusion images. MQ: MRBWOW_2 Contrast: 17 mL Dotarem IV COMPARISON: None. RESULT: Acute Change: There is no evidence of an acute intracranial process. Hemorrhage: No evidence of prior parenchymal hemorrhage on the susceptibility weighted images. Mass Lesion/ Mass Effect: No evidence of an intracranial mass or extra-axial fluid collection. No abnormal parenchymal or leptomeningeal enhancement is noted following contrast administration. No significant mass effect. Chronic Change: The white matter is within normal limits of signal intensity for age. Parenchyma: No significant volume loss for age. The brain parenchyma is otherwise within normal limits of signal intensity and morphology. Ventricles: Normal caliber and morphology. Skull Base: Hypothalamic and pituitary region are grossly normal. Craniocervical junction is normal. No significant marrow replacement process. Vasculature: Major intracranial arterial structures, and dural venous sinuses show typical flow void, suggesting patency by spin echo criteria. Other: The visualized paranasal sinuses and mastoid air cells are clear. The orbits and extracranial soft tissues are unremarkable. IMPRESSION IMPRESSION: Age-appropriate MRI of the brain. No evidence of an acute intracranial process, mass, or pathologic enhancement. Oil Seal Assembler: JULISSA Transcribe Date/Time: Aug 05 2023 3:09P Dictated by : ALBINO STARR MD This examination was interpreted and the report reviewed and electronically signed by: ALBINO STARR MD on Aug 05 2023 3:15PM [facility] Radiology Study observation (narrative) [facility] MR Brain WO and W contrast I VOrdered By: [facility] Provider on 08-05-2023 [facility] MRI BRAIN WO/W IVCONon 08-04 MRI BRAIN WO/W IVCON * * *Final Report* * * DATE OF EXAM: Aug 05 2023 3:08PM [facility] 0295 - MRI BRAIN WO/W IVCON / PROCEDURE REASON: G43.909 * * * * Physician Interpretation * * * * EXAMINATION: MRI BRAIN WO/W IVCON CLINICAL HISTORY: Headaches TECHNIQUE: Routine brain MRI protocol without and with contrast including diffusion images. MQ: MRBWOW_2 Contrast: 17 mL Dotarem IV COMPARISON: None. RESULT: Acute Change: There is no evidence of an acute intracranial process. Hemorrhage: No evidence of prior parenchymal hemorrhage on the susceptibility weighted images. Mass Lesion/ Mass Effect: No evidence of an intracranial mass or extra-axial fluid collection. No abnormal parenchymal or leptomeningeal enhancement is noted following contrast administration. No significant mass effect. Chronic Change: The white matter is within normal limits of signal intensity for age. Parenchyma: No significant volume loss for age. The brain parenchyma is otherwise within normal limits of signal intensity and morphology. Ventricles: Normal caliber and morphology. Skull Base: Hypothalamic and pituitary region are grossly normal. Craniocervical junction is normal. No significant marrow replacement process. Vasculature: Major intracranial arterial structures, and dural venous sinuses show typical flow void, suggesting patency by spin echo criteria. Other: The visualized paranasal sinuses and mastoid air cells are clear. The orbits and extracranial soft tissues are unremarkable. IMPRESSION: Age-appropriate MRI of the brain. No evidence of an acute intracranial process, mass, or pathologic enhancement. Oil Seal Assembler: PSCB Transcribe Date/Time: Aug 05 2023 3:09P Dictated by : ALBINO STARR MD This examination was interpreted and the report reviewed and electronically signed by: ALBINO STARR MD on Aug 05 2023 3:15PM EST [id number] [facility] Basophil percentageOrdered B y: Gato Dc on 02-20-2023 Bilirubin [Mass/Vol] 0.30 mg/dL 0.20-1.00 [facility] Comment on above: For patients on eltr ombopag therapy, use of Dimension [place] TBIL is not recommended. Chloride [Moles/Vol] 110 mmol/L 98-107 [facility] Glucose [Mass/Vol] 81 mg/dL 74-106 [facility] Potassium [Moles/Vol] 3.6 mmol/L 3.5-5.1 [facility] Protein [Mass/Vol] 7.1 g/dL 6.4-8.2 [facility] Sodium [Moles/Vol] 141 mmol/L 136-145 [facility] Erythrocyte sedimentation ra teOrdered By: Gato Dc on 02-20-2023 ESR (Bld) [Velocity] mm/h 0-30 [facility] - Chemistry and C hemistry - challengeOrdered By: Gato Dc on 02-20-2023 ALP [Catalytic activity/Vol] 66 U/L 45-[address] [facility] ALT [Catalytic activity/Vol] 18 U/L 13-[address] [facility] CO2 [Moles/Vol] 28.0 mmol/L 21.0-32.[address] [facility] Globulin (S) [Mass/Vol] 3.6 g/dL 2.2-4.2 [facility] Urea nitrogen/Creatinine [Mass ratio] 13.9 mg/mg 10-[address] [facility] No Panel InformationOrdered By: Gato Dc on 02-20-2023 Estimated GFR (MDRD) Amer 117 mL/min >[address] [facility] Comment on above: GFR Calc Estimated GFR (MDRD) Non-Af Amer 96 mL/min >[address] [facility] Comment on above: Non- GFR Calc Parathyroid Hormone (Intact) 94.6 pg/mL 18.4-80.[address] [facility] Vitamin D 25-Hydroxy 33.9 ng/mL [facility] Comment on above: Vitamin D 25(OH) Sta tus Range Deficiency <20 ng/mL (50nmol/L) Insufficiency 20 - 30 ng/mL (50 - 75 nmol/L) Sufficiency 30 - 100 ng/mL (75 - 250 nmol/L) Toxicity >100 ng/mL (>250 nmol/L) Serum or plasma albumin ubaldo urement (mass/volume)Ordered By: Gato Dc on 02-20-2023 Albumin [Mass/Vol] 3.5 g/dL 3.2-5.0 [facility] Serum or plasma albumin/glob ulin mass ratioOrdered By: Gato Dc on 02-20-2023 Albumin/Globulin [Mass ratio] 1.0 {ratio} 0.9-2.[address] [facility] Serum or plasma calcium ubaldo urement (mass/volume)Ordered By: Gato Dc on 02-20-2023 Calcium [Mass/Vol] 8.4 mg/dL 8.5-10.1 [facility] Serum or plasma creatinine m easurement (mass/volume)Ordered By: Gato Dc on 02-20-2023 Creatinine [Mass/Vol] 0.72 mg/dL 0.55-1.02 [facility] Comment on above: The validity of the calculated GFR & GFRAA in patients over 70 years has not been determined. Clinical correlation is essential. Serum or plasma urea nitroge n measurement (mass/volume)Ordered By: Gato Dc on 02-20-2023 Urea nitrogen [Mass/Vol] 10 mg/dL 7-[address] [facility] Thin prep Papanicolaou smear with manual screeningOrdered By: Gato Dc on 02-20-2023 Thin prep Papanicolaou smear with manual screening 17 U/L 15-[address] [facility] Thin prep Papanicolaou smear with manual screening 3 5-[address] [facility] No Panel Informationon 12-17 Culture Urine >100,000 cfu/ml Mixe d growth consistent with normal urogenital ana rosa. [facility] Work Phone: CT ABD/PEL W IVCONon 023 CT ABD/PEL W IVCON * * *Final Report* * * DATE OF EXAM: Nov 28 2022 10:21AM [facility] - CT ABD/PEL W IVCON / PROCEDURE REASON: K59.00, R16.0 * * * * Physician Interpretation * * * * EXAMINATION: CT ABDOMEN AND PELVIS WITH IV CONTRAST CLINICAL HISTORY: Constipation. Hepatomegaly TECHNIQUE: CT of the abdomen and pelvis was performed using standard technique, scanning from just above the dome of the diaphragm to the symphysis pubis. MQ: CTAP_3 Contrast: IV: 100 ml of Omnipaque 350 Oral: None CT Radiation dose: Integrated Dose-length product (DLP) for this visit = 509 mGy*cm. CT Dose Reduction Employed: Automated exposure control(AEC) and iterative recon COMPARISON: None. RESULT: Liver: There is a stable appearing, approximately 1.5 cm hypodense lesion within the posterior segment right hepatic lobe, previously described as a hepatic hemangioma (series 5, image #35). Stable subcentimeter, low-attenuation lesion within the right hepatic lobe is too small to characterize but statistically relates to a subcentimeter cyst (series 5, image #65). There is no new focal discrete hepatic lesion. Biliary: The patient is status post cholecystectomy. Stable mild biliary dilation, likely related to the cholecystectomy. Spleen: No mass. No splenomegaly. Small splenules are incidentally noted within the left upper quadrant. Pancreas: There is no obvious focal discrete pancreatic mass or pancreatic ductal dilation. Adrenals: No mass. Kidneys: There is no hydronephrosis or perinephric fluid collection. There is an approximately 2.3 x 1.6 cm cyst seen within the interpolar segment of the left kidney (series 5, image #42). Subcentimeter, low-attenuation lesion within the right kidney is too small to characterize but statistically relates to a subcentimeter cyst (series 5, image #59). GI tract: Nonspecific wall of the stomach likely relates to underdistention. There are no dilated loops of bowel to suggest obstruction. Moderate stool burden. Lymph nodes: There are prominent, less than 1 cm abdominal lymph nodes, likely reactive. Mesentery/Peritoneum: No abdominal ascites. Retroperitoneum: No mass. Vasculature: There is no abdominal aortic aneurysm. Pelvis: There is mild pelvic ascites, likely physiologic. Incidentally noted are incidentally hemorrhagic left adnexal cysts, measuring 1.4 x 1.1 cm (series 5, image #123) and 1.2 cm (series 5, image #119). Prominent, less than 1 cm pelvic lymph nodes are likely reactive. Multiple phleboliths are seen within the pelvis. Bones/Soft Tissues: A few presumed bone islands are incidentally noted within the osseous structures. Vacuum phenomena is seen involving the sacroiliac joint spaces, bilaterally. Tiny umbilical hernia, containing omental fat. No destructive bony lesion. Lower thorax: Lung bases are grossly clear. IMPRESSION: No acute abdominal or pelvic process is identified. Stable hemangioma within the posterior segment right hepatic lobe, better appreciated on prior liver protocol CT dated 02/06/2022. Incidentally noted are involuting hemorrhagic left adnexal cysts. Mild pelvic ascites, likely physiologic. Moderate stool burden. No evidence for bowel destruction. Oil Seal Assembler: JULISSA Transcribe Date/Time: Nov 28 2022 3:41P Dictated by : ORALIA MCKEON MD This examination was interpreted and the report reviewed and electronically signed by: ORALIA MCKEON MD on Nov 28 2022 3:49PM EST [id number] Normal [facility] Absolute lymphocyte countOrd ered By: Aroldo Miramontes on 07-25-2022 Lymphocytes Auto (Unsp spec) [#/Vol] 1.85 10*3/uL 0.83-4.[address] [facility] Atypical perinuclear antineu trophil cytoplasmic antibodies measurementOrdered By: Aroldo Miramontes on 07-25-2022 Neutrophil cytoplasmic Ab.perinuclear.atypical IF (S) [Titer] <1:20 titer Neg:<1:[address] [facility] Comment on above: The atypical pANCA p attern has been observed in asignificant percentage of patients with ulcerative colitis,primary sclerosing cholangitis and autoimmune hepatitis. Basophil percentageOrdered B y: Aroldo Miramontes on 07-25-2022 Ammonia (P) [Moles/Vol] 21.0 umol/L 11-[address] [facility] Basophil percentage < 0.2 AI 0.0-0.9 [facility] Basophils/100 WBC (Bld) 0.8 % 0-1 [facility] Bilirubin [Mass/Vol] 0.30 mg/dL 0.20-1.00 [facility] Comment on above: For patients on eltr ombopag therapy, use of Dimension [place] TBIL is not recommended. Chloride [Moles/Vol] 110 mmol/L 98-107 [facility] Eosinophils/100 WBC (Bld) 4.9 % 0-[address] [facility] Glucose [Mass/Vol] 94 mg/dL 74-106 [facility] LDH [Catalytic activity/Vol] 139 U/L 84-[address] [facility] Neutrophils (Bld) [#/Vol] 2.6 10*3/uL 2.0-7.[address] [facility] Neutrophils/100 WBC (Bld) 50.5 % 47-[address] [facility] Potassium [Moles/Vol] 3.9 mmol/L 3.5-5.1 [facility] Protein [Mass/Vol] 7.7 g/dL 6.4-8.2 [facility] Sodium [Moles/Vol] 142 mmol/L 136-145 [facility] WBC (Bld) [#/Vol] 5.1 10*3/uL 4.4-11.0 [facility] Blood erythrocytes count (nu mber/volume)Ordered By: Aroldo Miramontes on 07-25-2022 RBC (Bld) [#/Vol] 5.13 10*6/uL 4.2-5.4 [facility] Blood hemoglobin measurement (mass/volume)Ordered By: Aroldo Miramontes on 07-25-2022 Hemoglobin (Bld) [Mass/Vol] 14.7 g/dL 12.0-15.[address] [facility] Blood lymphocytes/100 leukoc ytesOrdered By: Aroldo Miramontes on 07-25-2022 Lymphocytes/100 WBC (Bld) 36.5 % 19-[address] [facility] Blood monocytes/100 leukocyt esOrdered By: Aroldo Miramontes on 07-25-2022 Monocytes/100 WBC (Bld) 7.1 % 0-10 [facility] Blood platelet mean volumeOr dered By: Aroldo Miramontes on 07-25-2022 Platelet mean volume (Bld) [Entitic vol] 9.4 fL 6.2-12.[address] [facility] Determination of erythrocyte mean corpuscular volume (MCV)Ordered By: Aroldo Miramontes on 07-25-2022 MCV (RBC) [Entitic vol] 85.6 fL 81-99 [facility] Erythrocyte sedimentation ra teOrdered By: Aroldo Miramontes on 07-25-2022 ESR (Bld) [Velocity] 4 mm/h 0-30 [facility] HIV 1 and HIV-2 antibody ass ay with HIV-1 p24 antigen detectionOrdered By: Aroldo Miramontes on 07-25-2022 HIV 1+2 Ab+HIV1 p24 Ag IA Ql Non-Reactive Nonreactive [facility] Hematocrit Auto (Bld) [Volum e fraction]Ordered By: Aroldo Miramontes on 07-25-2022 Hematocrit (Bld) [Volume fraction] 43.9 % 37-[address] [facility] INR in Blood by Coagulation assayOrdered By: Aroldo Miramontes on 07-25-2022 INR Coag (Bld) [Relative time] 1.0 {INR} [facility] - Chemistry and C hemistry - challengeOrdered By: Aroldo Miramontes on 07-25-2022 ALP [Catalytic activity/Vol] 61 U/L 45-[address] [facility] ALT [Catalytic activity/Vol] 15 U/L 13-[address] [facility] CO2 [Moles/Vol] 24.0 mmol/L 21.0-32.[address] [facility] Globulin (S) [Mass/Vol] 3.7 g/dL 2.2-4.2 [facility] Urea nitrogen/Creatinine [Mass ratio] 13.8 mg/mg 10-[address] [facility] - CoagulationOrde red By: Aroldo Miramontes on 07-25-2022 PT Coag (PPP) [Time] 13.5 s 11.7-14.9 [facility] - Hematology and Cell countsOrdered By: Aroldo Miramontes on 07-25-2022 Erythrocyte distribution width (RBC) [Entitic vol] 41.5 fL 35.1-43.[address] [facility] Erythrocyte distribution width (RBC) [Ratio] 13.2 % 11.6-14.[address] [facility] Immature granulocytes/100 WBC (Bld) 0.200 % 0.0-0.[address] [facility] Comment on above: IG% - Immature Granu locytes (promyelocytes, myelocytes and metamyelocytes) > 1% indicates that a LEFT SHIFT is Present. MCH (RBC) [Entitic mass] 28.7 pg 27.0-32.[address] [facility] Nucleated RBC/100 WBC (Bld) [Ratio] 0 % 0-5 [facility] [facility] MCHC Auto (RBC) [Mass/Vol]Or dered By: Aroldo Miramontes on 07-25-2022 MCHC (RBC) [Mass/Vol] 33.5 g/dL 32-36 [facility] No Panel InformationOrdered By: Aroldo Miramontes on 07-25-2022 Centromere B Antibody <0.2 AI 0.0-0.9 [facility] Ceruloplasmin 26.4 mg/dL 19.0-39.[address] [facility] Estimated GFR (MDRD) Amer 132 mL/min >[address] [facility] Comment on above: GFR Calc Estimated GFR (MDRD) Non-Af Amer 109 mL/min >[address] [facility] Comment on above: Non- GFR Calc Haptoglobin 96 mg/dL 33-[address] [facility] Comment on above: Performed at: CB - L [employer] [address] [id number] Director: Braydon Green PhD, Phone: [phone] at: [facility] [id number] Director: Hank Schumacher MD, Phone: [phone] Hepatitis A IgM Antibody Negative Negative [facility] Hepatitis B Core IgM Antibody Negative Negative [facility] Hepatitis C Antibody (EIA) Non-Reactive Non Reactive [facility] Hepatitis C Antibody Comment Comment . [facility] Comment on above: Not infected with HC V unless early or acute infection issuspected (which may be delayed in an immunocompromisedindividual), or other evidence exists to indicate HCVinfection. PRECISION LENS TECHNICIAN Antibody 0.2 AI 0.0-0.[address] [facility] Platelets bldOrdered By: Jason Miramontes on 07-25-2022 Platelets (Bld) [#/Vol] 234 10*3/uL 150-[address] [facility] Serum DNA double strand anti body assay (units/volume)Ordered By: Aroldo Miramontes on 07-25-2022 DNA double strand Ab Qn (S) 5 [IU]/mL 0-[address] [facility] Comment on above: Negative <5 Equivoca l 5 - 9 Positive >9 Serum Rocio-1 antibody assay (u nits/volume)Ordered By: Aroldo Miramontes on 07-25-2022 Rocio-1 extractable nuclear Ab Qn (S) <0.2 AI 0.0-0.[address] [facility] Serum Scl-70 extractable nuc lear antibody assay (units/volume)Ordered By: Aroldo Miramontes on 07-25-2022 SCL-70 extractable nuclear Ab Qn (S) <0.2 AI 0.0-0.[address] [facility] Serum Almaraz extractable nucl ear antibody detectionOrdered By: Aroldo Miramontes on 07-25-2022 Almaraz extractable nuclear Ab Ql (S) <0.2 AI 0.0-0.[address] [facility] Serum classic neutrophil cyt oplasmic antibody assay (units/volume)Ordered By: Aroldo Miramontes on 07-25-2022 Neutrophil cytoplasmic Ab.classic Qn (S) <1:20 titer Neg:<1:[address] [facility] Serum mitochondria antibody detectionOrdered By: Aroldo Miramontes on 07-25-2022 Mitochondria Ab Ql (S) <20.0 Units 0.0-20.0 [facility] Comment on above: Negative 0.0 - 20.0 Equivocal 20.1 - 24.9 Positive >24.9Mitochondrial (M2) Antibodies are found in 90-96% ofpatients with primary biliary cirrhosis.Performed at: [place] [id number] Director: Braydon Green PhD, Phone: [phone] Serum or plasma C reactive p rotein measurement (mass/volume)Ordered By: Aroldo Miramontes on 07-25-2022 CRP [Mass/Vol] mg/L 0.0-3.[address] [facility] Comment on above: C-Reactive Protein ( CRP) provides useful information for thediagnosis, therapy and monitoring of inflammatory processesand associated diseases. For the evaluation of Relative Riskfor Cardiovascular Disease, a High Sensitivity CRP (HSCRP)should be ordered. Serum or plasma actin IgG an tibody assay (units/volume)Ordered By: Aroldo Miramontes on 07-25-2022 Actin IgG Qn 13 Units 0-[address] [facility] Comment on above: Negative 0 - 19 Weak positive 20 - 30 Moderate to strong positive >30 Actin Antibodies are found in 52-85% of patients with autoimmune hepatitis or chronic active hepatitis and in 22% of patients with primary biliary cirrhosis. Serum or plasma albumin ubaldo urement (mass/volume)Ordered By: Aroldo Miramontes on 07-25-2022 Albumin [Mass/Vol] 4.0 g/dL 3.2-5.0 [facility] Serum or plasma albumin/glob ulin mass ratioOrdered By: Aroldo Miramontes on 07-25-2022 Albumin/Globulin [Mass ratio] 1.1 {ratio} 0.9-2.[address] [facility] Serum or plasma [id number] protein tumor marker measurement (units/volume)Ordered By: Aroldo Miramontes on 07-25-2022 AFP.tumor marker Qn 2.4 ng/mL 0.0-6.4 [facility] Comment on above: [employer] El ectrochemiluminescence Immunoassay(ECLIA)Values obtained with different assay methods or kits cannotbe used interchangeably. Results cannot be interpreted asabsolute evidence of the presence or absence of malignantdisease.This test is not interpretable in females. Serum or plasma angiotensin converting enzyme measurement (enzymatic activity/volume)Ordered By: Aroldo Miramontes on 07-25-2022 Angiotensin converting enzyme [Catalytic activity/Vol] 34 U/L 14-[address] [facility] Serum or plasma calcium ubaldo urement (mass/volume)Ordered By: Aroldo Miramontes on 07-25-2022 Calcium [Mass/Vol] 8.7 mg/dL 8.5-10.1 [facility] Serum or plasma creatinine m easurement (mass/volume)Ordered By: Aroldo Miramontes on 07-25-2022 Creatinine [Mass/Vol] 0.65 mg/dL 0.55-1.02 [facility] Comment on above: The validity of the calculated GFR & GFRAA in patients over 70 years has not been determined. Clinical correlation is essential. Serum or plasma ferritin juan surement (mass/volume)Ordered By: Aroldo Miramontes on 07-25-2022 Ferritin [Mass/Vol] 25 ng/mL 8-252 [facility] Serum or plasma hepatitis B virus surface antigen detection by immunoassayOrdered By: Aroldo Miramontes on 07-25-2022 HBV surface Ag IA Ql Negative Negative [facility] Serum or plasma urea nitroge n measurement (mass/volume)Ordered By: Aroldo Miramontes on 07-25-2022 Urea nitrogen [Mass/Vol] 9 mg/dL 7-[address] [facility] Serum perinuclear neutrophil cytoplasmic antibody titer by immunofluorescenceOrdered By: Aroldo Miramontes on 07-25-2022 Neutrophil cytoplasmic Ab.perinuclear IF (S) [Titer] <1:20 titer Neg:<1:[address] [facility] Comment on above: The presence of posi tive fluorescence exhibiting P-ANCA orC-ANCA patterns alone is not specific for the diagnosis ofWegener's Granulomatosis (WG) or microscopic polyangiitis.Decisions about treatment should not be based solely onANCA IFA results. The International ANCA Group Consensusrecommends follow up testing of positive sera with both NE-3 and MPO-ANCA enzyme immunoassays. As many as 5% serumsamples are positive only by EIA. Ref. AM J Clin Gmkygc0460;111:507-513. Thin prep Papanicolaou smear with manual screeningOrdered By: Aroldo Miramontes on 07-25-2022 Thin prep Papanicolaou smear with manual screening 12 U/L 15-[address] [facility] Thin prep Papanicolaou smear with manual screening 8 5-[address] [facility] Thin prep Papanicolaou smear with manual screening 106 ug/dL 80-[address] [facility] Comment on above: Detection Limit = 5 Whole blood hemoglobin A1c/t otal hemoglobin ratio (mass fraction)Ordered By: Aroldo Miramontes on 07-25-2022 HbA1c (Bld) [Mass fraction] 4.9 % 3.8-5.[address] [facility] Comment on above: Normal < 5.7 % Predi abetic 5.7 - 6.4 % Diabetic >or= 6.5 % Please note range changes. Office Visiton 06-30-2022 Follow-up visit [id number] Michelle Mauricio 1985 F Date Provider Department Center 06/30/2022 [id number]-DIRDWBMARQUIS LOTT*[facility] None Family History Problem Relation Age of Onset Rheum arthritis Mother Arthritis Mother Asthma Mother Hyperlipidemia Father No Known Problems Sister No Known Problems Brother Heart attack Paternal Grandfather No Known Problems Daughter No Known Problems Son Family Status - Relation Status Age at Mother Alive Father Sister Alive Brother Alive Paternal Grandfather Daughter Alive Son Alive Level of Service:22691 NE OFFICE/OUTPATIENT NEW LOW MDM 30-44 MINUTES Reason for Visit and Comments: New Patient [542] - Eval for axillary mass Normal [facility] Basophil percentageOrdered B y: Dr. Barclay on 04-18-2022 Basophil percentage 0 SEEN /hpf 0-5 [facility] Bilirubin Test strip Ql (U)O rdered By: Dr. Barclay on 04-18-2022 Bilirubin Ql (U) Negative Negative [facility] Ketones Test strip Ql (U)Ord ered By: Dr. Barclay on 04-18-2022 Ketones Ql (U) 15 mg/dl Negative [facility] Mucus LM Ql (Urine sed)Order ed By: Dr. Barclay on 04-18-2022 Mucus Ql (Urine sed) 1+ /hpf [facility] Nitrite Test strip Ql (U)Ord ered By: Dr. Barclay on 04-18-2022 Nitrite Ql (U) Negative Negative [facility] Protein Test strip Ql (U)Ord ered By: Dr. Barclay on 04-18-2022 Protein Ql (U) 15 mg/dl Negative [facility] Squamous epithelial cells de tection in urine sediment by light microscopyOrdered By: Dr. Barclay on 04-18-2022 Epithelial cells.squamous LM Ql (Urine sed) 0-5 SEEN /hpf 5-[address] [facility] Urine blood detectionOrdered By: Dr. Barclay on 04-18-2022 RBC Ql (U) Negative Negative [facility] RBC Ql (U) 0 SEEN /hpf 0-[address] [facility] Urine clarityOrdered By: Dr. Barclay on 04-18-2022 Clarity (U) Sl. Cloudy Clear [facility] Urine color determinationOrd ered By: Dr. Barclay on 04-18-2022 Color (U) Yellow Yellow [facility] Urine glucose detectionOrder ed By: Dr. Barclay on 04-18-2022 Glucose Ql (U) Normal mg/dl Normal [facility] Urine leukocyte esterase det ection by dipstickOrdered By: Dr. Barclay on 04-18-2022 Leukocyte esterase Test strip Ql (U) Negative Negative [facility] Urine pHOrdered By: Dr. Ramy chester on 04-18-2022 pH (U) 6.0 [pH] 5.0 - 8.[address] [facility] Urine sediment bacteria coun t by microscopy (number/high power field)Ordered By: Dr. Barclay on 04-18-2022 Bacteria LM.HPF (Urine sed) [#/Area] 1 /[HPF] None Seen [facility] Urine specific gravity measu rementOrdered By: Dr. Barclay on 04-18-2022 Specific gravity (U) [Rel density] 1.020 1.002-1.[address] [facility] Urobilinogen Auto test strip Ql (U)Ordered By: Dr. Barclay on 04-18-2022 Urobilinogen Ql (U) Normal mg/dl Normal [facility] Basophil percentageOrdered B y: Dr. Dc on 04-11-2022 Bilirubin [Mass/Vol] 0.50 mg/dL 0.20-1.00 [facility] Comment on above: For patients on eltr ombopag therapy, use of Dimension [place] TBIL is not recommended. Chloride [Moles/Vol] 108 mmol/L 98-107 [facility] Glucose [Mass/Vol] 88 mg/dL 74-106 [facility] Potassium [Moles/Vol] 4.1 mmol/L 3.5-5.1 [facility] Protein [Mass/Vol] 7.5 g/dL 6.4-8.2 [facility] Sodium [Moles/Vol] 137 mmol/L 136-145 [facility] Laboratory - Chemistry and C hemistry - challengeOrdered By: Dr. Dc on 04-11-2022 ALP [Catalytic activity/Vol] 81 U/L 45-[address] [facility] ALT [Catalytic activity/Vol] 20 U/L 13-[address] [facility] CO2 [Moles/Vol] 24.0 mmol/L 21.0-32.[address] [facility] Cobalamin (Vitamin B12) [Mass/Vol] 430 pg/mL 211-[address] [facility] Globulin (S) [Mass/Vol] 3.9 g/dL 2.2-4.2 [facility] Urea nitrogen/Creatinine [Mass ratio] 27.3 mg/mg 10-[address] [facility] No Panel InformationOrdered By: Dr. Dc on 04-11-2022 Estimated GFR (MDRD) Amer 139 mL/min >[address] [facility] Comment on above: GFR Calc Estimated GFR (MDRD) Non-Af Amer 115 mL/min >[address] [facility] Comment on above: Non- GFR Calc Vitamin D 25-Hydroxy 23.2 ng/mL [facility] Comment on above: Vitamin D 25(OH) Sta tus Range Deficiency <20 ng/mL (50nmol/L) Insufficiency 20 - 30 ng/mL (50 - 75 nmol/L) Sufficiency 30 - 100 ng/mL (75 - 250 nmol/L) Toxicity >100 ng/mL (>250 nmol/L) Serum or plasma albumin ubaldo urement (mass/volume)Ordered By: Dr. Dc on 04-11-2022 Albumin [Mass/Vol] 3.6 g/dL 3.2-5.0 [facility] Serum or plasma albumin/glob ulin mass ratioOrdered By: Dr. Dc on 04-11-2022 Albumin/Globulin [Mass ratio] 0.9 {ratio} 0.9-2.[address] [facility] Serum or plasma calcium ubaldo urement (mass/volume)Ordered By: Dr. Dc on 04-11-2022 Calcium [Mass/Vol] 8.8 mg/dL 8.5-10.1 [facility] Serum or plasma creatinine m easurement (mass/volume)Ordered By: Dr. Dc on 04-11-2022 Creatinine [Mass/Vol] 0.62 mg/dL 0.55-1.02 [facility] Comment on above: The validity of the calculated GFR & GFRAA in patients over 70 years has not been determined. Clinical correlation is essential. Serum or plasma folate measu rement (mass/volume)Ordered By: Dr. Dc on 04-11-2022 Folate [Mass/Vol] 10.10 ng/mL 3.1-55.4 [facility] Serum or plasma urea nitroge n measurement (mass/volume)Ordered By: Dr. Dc on 04-11-2022 Urea nitrogen [Mass/Vol] 17 mg/dL 7-[address] [facility] Thin prep Papanicolaou smear with manual screeningOrdered By: Dr. Dc on 04-11-2022 Thin prep Papanicolaou smear with manual screening 16 U/L 15-[address] [facility] Thin prep Papanicolaou smear with manual screening 5 5-[address] [facility] Serum or plasma choriogonado tropin detectionOrdered By: Dr. Cornelius on 03-26-2022 HCG ( test) Ql < 1 mIU/mL <4 [facility] Comment on above: hCG levels with Gest ational AgeGestational Age hCG mIU/mL (IU/L)0.2 - 1 week 5 - 501-2 weeks 50 - 5002-3 weeks 100 - 72480-6 weeks 500 - 829596-6 weeks 1000 - 163752-6 weeks 78280 - 100,0006-8 weeks 58509 - 200,0002-3 months 10529 - 100,000 36on 01-02-2022 36 MRI now scheduled fo r 01/24/22 pt was made aware Normal [facility] Cervical or vagninal specime n microscopic examination by cytology stain (reported asOrdered By: Dr. Cornelius on 01-02-2022 Cytology report Cyto stain Doc (Cvx/Vag) Comment . [facility] Comment on above: The Pap smear is a s creening test designed to aid in thedetection of premalignant and malignant conditions of theuterine cervix. It is not a diagnostic procedure andshould not be used as the sole means of detecting cervicalcancer. Both false-positive and false-negative reports dooccur. Detection in cervical specim en of any of human papilloma virus (HPV) 16, 18, 31, 33,Ordered By: Dr. Cornelius on 01-02-2022 HPV 16+18+31+33+35+39+45+51 +52+56+58+59+66+68 DNA Probe+sig amp Ql (Cvx) Negative Negative [facility] Comment on above: This nucleic acid am plification test detects fourteen high-risk HPV types (16,18,31,33,35,39,45,51,52,56,58,59,66,68)without differentiation. Laboratory - CytologyOrdered By: Dr. Cornelius on 01-02-2022 Manager Marketing Sales Cyto stain Nom (Cvx/Vag) [ID] Comment . [facility] Comment on above: Kaitlin Zacarias, Cytot echnologist (ASCP) Laboratory - Miscellaneous t estsOrdered By: Dr. Cornelius on 01-02-2022 Service comment (Unsp spec) [Interp] Comment . [facility] Comment on above: This liquid based Th inPrep(R) pap test was screened withthe use of an image guided system. Service comment (Unsp spec) [Interp] . . [facility] Liquid-based cerv Pap + CT/G C by RENO w reflex to high-risk HPV for ASCUSOrdered By: Dr. Cornelius on 01-02-2022 Cytology report Cyto stain.thin prep Doc (Cvx/Vag) Comment . [facility] Comment on above: Criteria not met, HP V Genotype not performed.Performed at: - [address] [id number] Director: Erika Santana MD, Phone: [phone] at: =[facility] [id number] Director: Erika Santana MD, Phone: [phone] No Panel InformationOrdered By: Dr. Cornelius on 01-02-2022 Pathology report final diagnosis Narrative Comment . [facility] Comment on above: NEGATIVE FOR INTRAEP ITHELIAL LESION OR MALIGNANCY. 36on 12-31-2021 36 Noted, thank you Normal [facility] Office Visiton 12-18-2021 Follow-up visit [id number] Michelle Mauricio 1985 F Date Provider Department Center 12/18/2021 [id number]-GQWVMINHGOKMELANIE TREVIÑO*[facility] [address] Family History Problem Relation Age of Onset Rheum arthritis Mother Arthritis Mother Hyperlipidemia Father No Known Problems Sister No Known Problems Brother Heart attack Paternal Grandfather No Known Problems Daughter No Known Problems Son Family Status - Relation Status Age at Mother Alive Father Sister Alive Brother Alive Paternal Grandfather Daughter Alive Son Alive Level of Service:12050 NE OFFICE/OUTPATIENT ESTABLISHED MOD MDM 30-39 MIN Reason for Visit and Comments: Hospital Follow-up [832] Chest Pain [400720] Shortness of Breath [120643] Normal [facility] Progress Noteon 12-18-2021 Progress Note [facility] Cardiology Note DATE of SERVICE:12/18/21 TIME of SERVICE: 11:10 AM Chief Complaint: Chief Complaint Patient presents with Hospital Follow-up Chest Pain Shortness of Breath History of PresentIllness: Michelle Mauricio is a 36 y.o. female who presents today for follow-up regarding her shortness of breath and to discuss the results of her cardiopulmonary stress test. She underwent a metabolic stress test last week. She had mild oxygen desaturation. There was evidence of mild respiratory impairment. Her VO2 max was mildly reduced consistent with a combination of respiratory impairment and deconditioning. She continues to struggle with respiration. She has difficulties holding a conversation due to shortness of breath. She has orthopnea several times a week. She is still breast-feeding. She is frustrated by the lack of progress both diagnostically as well as symptomatically. She is 7 months . Past Medical History: Past Medical History: Diagnosis Date Arthritis Asthma Blurry vision Fractures 2009 right tibia fx Immune deficiency disorder (HCC) Mass right leg Rheumatoid arthritis (HCC) Past Surgical History Past Surgical History: Procedure Laterality Date ABDOMINAL SURGERY blood vessel rupture APPENDECTOMY GALLBLADDER SURGERY LIVER BIOPSY OOPHORECTOMY Family History Family History Problem Relation Name Age of Onset Rheum arthritis Mother Arthritis Mother Hyperlipidemia Father No Known Problems Sister x3 No Known Problems Brother x3 Heart attack Paternal Grandfather No Known Problems Daughter No Known Problems Son Social History Social History Tobacco Use Smoking status: Never Smokeless tobacco: Never Substance Use Topics Alcohol use: Never Drug use: Never Allergies: Allergies Allergen Reactions Amoxicillin Shortness of breath Doxycycline Nausea And Vomiting and Shortness of breath Other reaction(s): GI Intolerance, Vomiting Other reaction(s): AOF, Unknown, Vomiting Penicillins Anaphylaxis Other reaction(s): AOF Piperacillin-Tazobactam In Dex Anaphylaxis Tazobactam Anaphylaxis Tramadol Nausea And Vomiting and Rash Other reaction(s): Vomiting Other reaction(s): Nausea/Vom/Diarrhea, Unknown, Vomiting Vancomycin Anaphylaxis Other reaction(s): AOF, Unknown Cephalexin Hives Other reaction(s): AOF, hives Bee Pollen Other reaction(s): AOF, Swelling Medications: Current Outpatient Medications: albuterol 108 (90 Base) MCG/ACT inhaler, INHALE 2 PUFFS INTO THE LUNGS 4 TIMES DAILY NEEDED, Disp: , Rfl: calcium carbonate 1500 (600 Ca) MG tablet, , Disp: , Rfl: Certolizumab Pegol (Cimzia Prefilled) 2 X 200 MG/ML Prefilled Syringe Kit injection, Inject 400 mg under the skin every 28 (twenty-eight) days., Disp: , Rfl: cholecalciferol (Vitamin D-3) 50 MCG (2000 UT) capsule, Take by mouth., Disp: , Rfl: magnesium oxide (Mag-Ox) 400 MG tablet, Take 500 mg by mouth in the morning., Disp: , Rfl: montelukast (Singulair) 5 MG chewable tablet, Chew 5 mg in the morning. chew., Disp: , Rfl: Qvar RediHaler 80 MCG/ACT inhaler, Inhale 2 puffs in the morning and 2 puffs before bedtime., Disp: , Rfl: Review of Systems: Review of Systems Constitutional: Negative for fever. 7 months post Currently HENT: Negative for ear pain, rhinorrhea and sore throat. Respiratory: Positive for shortness of breath. Negative for wheezing. Cardiovascular: Positive for chest pain and palpitations (occasional skip). Negative for leg swelling. Gastrointestinal: Negative for abdominal pain and vomiting. Musculoskeletal: Negative for neck pain. Skin: Negative for rash. Neurological: Positive for light-headedness (exertion). Negative for headaches. Physical Examination: Vitals: Vitals: 12/18/21 1052 BP: 116/80 Pulse: 84 Weight: 185 lb 9.6 oz (84.2 kg) Height: 5' 8 (1.727 m) Body mass index is 28.22 kg/m?. Physical Exam Vitals reviewed. Constitutional: Appearance: Normal appearance. She is normal weight. HENT: Head: Normocephalic and atraumatic. Right Ear: External ear normal. Left Ear: External ear normal. Nose: Nose normal. Eyes: Extraocular Movements: Extraocular movements intact. Conjunctiva/sclera: Conjunctivae normal. Neck: Vascular: No carotid bruit. Cardiovascular: Rate and Rhythm: Normal rate and regular rhythm. Heart sounds: No murmur heard. No gallop. Pulmonary: Effort: Pulmonary effort is normal. Tachypnea present. Breath sounds: Normal breath sounds. No wheezing. Abdominal: General: Bowel sounds are normal. Palpations: Abdomen is soft. Musculoskeletal: General: No swelling. Normal range of motion. Cervical back: Neck supple. Right lower leg: No edema. Left lower leg: No edema. Skin: General: Skin is warm and dry. Neurological: General: No focal deficit present. Mental Status: She is alert and oriente (more content not included)... Normal [facility] CBCon 11-27-2021 Hematocrit (Bld) [Volume fraction] 38.5 % 35 - 47 % [facility] Work Phone: Hemoglobin (Bld) [Mass/Vol] 12.8 g/dL 11.7 - 16 g/dL [facility] Work Phone: MCH (RBC) [Entitic mass] 28.2 pg 26 - 34 pg [facility] Work Phone: MCHC (RBC) [Mass/Vol] 33.3 % 32 - 36 % [facility] Work Phone: MCV (RBC) [Entitic vol] 84.7 fL 79 - 98 fL S [facility] Work Phone: Platelet distribution width (Bld) [Ratio] 13.6 % 11.5 - 14.5 % [facility] Work Phone: Platelet mean volume (Bld) [Entitic vol] 7.8 fL 7.4 - 12.4 fL [facility] Work Phone: Comment on above: MPV is a calculated measurement using platelet volume ratio. Platelets (Bld) [#/Vol] 210 10*3/uL 140 - 440 10*3/uL [facility] Work Phone: RBC (Bld) [#/Vol] 4.55 10*6/uL 3.8 - 5.2 10*6/uL [facility] Work Phone: WBC (Bld) [#/Vol] 6.7 10*3/uL 3.6 - 10.7 10*3/uL [facility] Work Phone: Test Performed by [facility], [address] [place] [id number] [facility] Work Phone: Hemogramon 11-27-2021 Erythrocyte distribution width (RBC) [Ratio] 13.6 % Normal 11.5-14.5 [facility] Comment on above: Performed By: #### H EMOG ####[employer] [place] [address] Hematocrit (Bld) [Volume fraction] 38.5 % Normal 35.0-47.0 [facility] Comment on above: Performed By: #### H EMOG ####[facility] [employer] [place] [address] Hemoglobin (Bld) [Mass/Vol] 12.8 g/dL Normal 11.7-16.0 [facility] Comment on above: Performed By: #### H EMOG ####[facility] [address] [place] [address] MCH (RBC) [Entitic mass] 28.2 pg Normal 26.0-34.0 [facility] Comment on above: Performed By: #### H EMOG ####[facility] [id number] [place] [address] MCHC 33.3 % Normal 32.0-36.0 [facility] Comment on above: Performed By: #### H EMOG ####[place] [id number] [place], [place] MCV (RBC) [Entitic vol] 84.7 fL Normal 79.0-98.0 [facility] Comment on above: Performed By: #### H EMOG ####[place] [id number] [place], [place] Platelet mean volume (Bld) [Entitic vol] 7.8 fL Normal 7.4-12.4 [facility] Comment on above: Result Comment: MPV is a calculated measurement using platelet volume ratio. Performed By: #### H EMOG ####[place] [id number] [place], [place] Platelets (Bld) [#/Vol] 210 10*3/uL Normal 140-440 [facility] Comment on above: Performed By: #### H EMOG ####[address] RBC (Bld) [#/Vol] 4.55 10*6/uL Normal 3.80-5.20 [facility] Comment on above: Performed By: #### H EMOG ####[place] [address] [place], [place] WBC (Bld) [#/Vol] 6.7 10*3/uL Normal 3.6-10.7 [facility] Comment on above: Performed By: #### H EMOG ####[place] [address] [place], [place] Add On Lab Teston 11-26-2021 Add On Accepted [facility] Comment on above: Specimen available & acceptable for analysis. Test Performed by [facility], [address] [place] [address] [facility] Add on test from HISon 11-26 Add on test from HIS Accepted Normal [facility] Comment on above: Result Comment: Spec imen available & acceptable for analysis. Performed By: #### A DDON #### [place] [address] [place], [place] Add on test from HIS Accepted Normal [facility] Comment on above: Result Comment: Spec imen available & acceptable for analysis. Performed By: #### A DDON ####[place] [address] [place], [place] Basic Metabolic Panelon 11-16 Calcium [Mass/Vol] 9.0 mg/dL Normal 8.4-10.4 [facility] Comment on above: Performed By: #### H EMDF, LIPD2, BMP3, TROPN ####[place] [address] [address] [place], [place] Glucose [Mass/Vol] 84 mg/dL Normal 70-100 [facility] Comment on above: Performed By: #### H EMDF, LIPD2, BMP3, TROPN ####[place] [address] [place], [place] Urea nitrogen [Mass/Vol] 11 mg/dL Normal 9-20 [facility] Comment on above: Performed By: #### H EMDF, LIPD2, BMP3, TROPN ####[address] Anion gap [Moles/Vol] 6 mmol/L Normal 3-13 [facility] Comment on above: Performed By: #### H EMDF, LIPD2, BMP3, TROPN ####[address] CO2 [Moles/Vol] 20 mmol/L Low 22-30 [facility] Comment on above: Performed By: #### H EMDF, LIPD2, BMP3, TROPN ####[address] Creatinine [Mass/Vol] 0.59 mg/dL Normal 0.52-1.25 [facility] Comment on above: Performed By: #### H EMDF, LIPD2, BMP3, TROPN ####[address] eGFR OTHER > 90.0 Normal >60 [facility] Comment on above: Result Comment: KDIG O guidelines provide the following GFR categories: Stage GFR(ml/min/1.73 m2) Terms G1 >=90 Normal or high G2 60-89 Mildly decreased* G3a 45-59 Mildly to moderately decreased G3b 30-44 Moderately to severely decreased G4 15-29 Severely decreased G5 <15 Kidney failure *Relative to young adult level. In the absence of evidence of kidney damage, neither GFR category G1 nor G2 fulfill the criteria for CKD. The CKD-EPI equation is validated in individuals 18 years of age and older. Currently the best equation for estimating glomerular filtration rate (GFR) from serum creatinine in children is the Bedside Hernandez equation. It is less accurate in patients with extremes of muscle mass, restriction of dietary protein, ingestion of creatine, extra-renal metabolism of creatinine, or treatment with medications that affect renal tubular creatinine secretion. Performed By: #### H EMDF, LIPD2, BMP3, TROPN ####[facility] [id number] [place], [place] GFR/1.73 sq M.predicted among blacks MDRD (S/P/Bld) [Vol rate/Area] mL/min/{1.73_m2} Normal >60 [facility] Comment on above: Performed By: #### H EMDF, LIPD2, BMP3, TROPN ####[facility] [id number] [place], [place] Potassium [Moles/Vol] 3.9 mmol/L Normal 3.5-5.1 [facility] Comment on above: Result Comment: Slig htly hemolysed, interpret with caution. Performed By: #### H EMDF, LIPD2, BMP3, TROPN ####[facility] [id number] [place], [place] Sodium [Moles/Vol] 139 mmol/L Normal 135-145 [facility] Comment on above: Performed By: #### H EMDF, LIPD2, BMP3, TROPN ####[facility] [id number] [place], [place] Chloride [Moles/Vol] 113 mmol/L High 98-107 [facility] Comment on above: Performed By: #### H EMDF, LIPD2, BMP3, TROPN ####[facility] [id number] [place], [place] Anion gap [Moles/Vol] 6 mmol/L 3 - 13 mmol/L [facility] Calcium [Mass/Vol] 9.0 mg/dL 8.4 - 10. 4 mg/dL [facility] Chloride [Moles/Vol] 113 mmol/L High 98 - 10 7 mmol/L [facility] CO2 [Moles/Vol] 20 mmol/L Low 22 - 30 mmol/L [facility] Creatinine [Mass/Vol] 0.59 mg/dL 0.52 - 1.25 mg/dL [facility] eGFR mL/min 60 - P INF mL/min [facility] EGFR IF NonAfrican Senegalese mL/min 60 - PINF mL/min [facility] Comment on above: KDIGO guidelines pro vide the following GFR categories: Stage GFR(ml/min/1.73 m2) Terms G1 >=90 Normal or high G2 60-89 Mildly decreased* G3a 45-59 Mildly to moderately decreased G3b 30-44 Moderately to severely decreased G4 15-29 Severely decreased G5 <15 Kidney failure *Relative to young adult level. In the absence of evidence of kidney damage, neither GFR category G1 nor G2 fulfill the criteria for CKD. The CKD-EPI equation is validated in individuals 18 years of age and older. Currently the best equation for estimating glomerular filtration rate (GFR) from serum creatinine in children is the Bedside Hernandez equation. It is less accurate in patients with extremes of muscle mass, restriction of dietary protein, ingestion of creatine, extra-renal metabolism of creatinine, or treatment with medications that affect renal tubular creatinine secretion. Glucose [Mass/Vol] 84 mg/dL 70 - 100 mg/dL [facility] Potassium [Moles/Vol] 3.9 mmol/L 3.5 - 5.1 mmol/L [facility] Comment on above: Slightly hemolysed, interpret with caution. Sodium [Moles/Vol] 139 mmol/L 135 - 145 mmol/L [facility] Urea nitrogen (BldV) [Mass/Vol] 11 mg/dL 9 - 20 mg/dL [facility] Brain Natriuretic Peptideon 11-26-2021 Natriuretic peptide B (Bld) [Mass/Vol] 44 pg/mL 0 - 125 pg/mL [facility] Work Phone: Test Performed by [facility], [address] [place] [id number] [facility] Work Phone: CBC with Auto Differentialon 11-26-2021 Absolute Baso # 0.1 10*3/uL 0 - 0.2 10*3/uL [facility] Absolute Neut # 2.8 10*3/uL 1.8 - 7 10*3/uL [facility] Basophils/100 WBC (Bld) 1.0 % 0 - 2 % [facility] Eosinophils (Bld) [#/Vol] 0.3 10*3/uL 0 - 0.5 10*3/uL [facility] Eosinophils/100 WBC (Bld) 4.5 % 1 - 6 % [facility] Granulocytes/100 WBC (Bld) 43.9 % 40 - 80 % [facility] Hematocrit (Bld) [Volume fraction] 39.3 % 35 - 47 % [facility] Hemoglobin (Bld) [Mass/Vol] 13.7 g/dL 11.7 - 16 g/dL [facility] Interpretation and review of laboratory results Abnormal [facility] Lymphocytes (Bld) [#/Vol] 2.7 10*3/uL 1 - 4.3 10*3/uL [facility] Lymphocytes/100 WBC (Bld) 43.2 % High 20 - 40 % [facility] MCH (RBC) [Entitic mass] 30.0 pg 26 - 34 pg [facility] MCHC (RBC) [Mass/Vol] 34.8 % 32 - 36 % [facility] MCV (RBC) [Entitic vol] 86.1 fL 79 - 98 fL [facility] Monocytes (Bld) [#/Vol] 0.5 10*3/uL 0 - 0.8 10*3/uL [facility] Monocytes/100 WBC (Bld) 7.4 % 2 - 10 % [facility] Platelet distribution width (Bld) [Ratio] 13.6 % 11.5 - 14.5 % [facility] Platelet mean volume (Bld) [Entitic vol] 7.7 fL 7.4 - 12.4 fL [facility] Comment on above: MPV is a calculated measurement using platelet volume ratio. Platelets (Bld) [#/Vol] 204 10*3/uL 140 - 440 10*3/uL [facility] RBC (Bld) [#/Vol] 4.56 10*6/uL 3.8 - 5.2 10*6/uL [facility] WBC (Bld) [#/Vol] 6.3 10*3/uL 3.6 - 10.7 10*3/uL [facility] Test Performed by [facility], [address] [place] [id number] [facility] COVID-19on 11-26-2021 SARS-CoV-2 (COVID-19) RNA RENO+probe Ql (Unsp spec) Not detected Not Detected [facility] Work Phone: Comment on above: Not Detected. Expected result: Not Detected _ Method: Real-time, RT-PCR Negative results do not preclude SARS-CoV-2 infection and should not be used as the sole basis for treatment or other patient management decisions. This assay was developed by [employer] and distributed under an Emergency Use Authorization (EUA) granted by the FDA for the qualitative detection of SARS-CoV-2 nucleic acid. Provider and patient fact sheets can be found at https://www.fda.gov/media/343546/download and https://www.fda.gov/media/330714/download. Test Performed by [facility], [address] [place] [address] [facility] Work Phone: CR Chest Portableon 11-27-19 22 CR Chest Portable Patient Name: MICHELLE MAURICIO Diagnostic Radiology ACCESSION EXAM DATE/TIME PROCEDURE ORDERING PROVIDER [id number] 11/25/2021 22:35 EDT CR Chest Portable [id number] FAUSTO JOYCE CPT code 31013 Reason For Exam (CR Chest Portable) pain Report SINGLE FRONTAL VIEW OF THE CHEST CLINICAL INDICATION: pain TECHNIQUE: Single frontal view of the chest COMPARISON: 09/04/2014 FINDINGS: Lungs show no significant consolidation. No pleural effusion or pneumothorax. No vascular congestion. Heart size normal. IMPRESSION: 1. No acute finding. Report Dictated on Workstation: [id number] Final Dictated: 11/25/2021 10:35 pm Dictating Physician: MD HUNTER JOHN R Signed Date and Time: 11/25/2021 10:35 pm Signed by: MD HUNTER JOHN R Transcribed Date and Time: 11/25/2021 10:35 Normal [facility] CTA Chest w/ + w/o Contrasto n 11-26-2021 CTA Chest w/ + w/o Contrast [facility]: [id number] Tom[facility] ACCESSION EXAM DATE/TIME PROCEDURE ORDERING PROVIDER [id number] 11/25/2021 23:29 EDT CTA Chest w/ + w/o [id number] -ANUPAMA, FAUSTO Contrast CPT code 92963 Q9967 Reason For Exam (CTA Chest w/ + w/o Contrast) SOB Report EXAMINATION: CTA of the chest with intravenous contrast, pulmonary embolism protocol. EXAM DATE and TIME: 11/25/2021 11:29 PM EDT INDICATION: SOB ADDITIONAL INFORMATION: 35-year-old female with shortness of breath presents for evaluation COMPARISON: None LIMITATIONS: As below TECHNIQUE: CT angiogram of the chest was performed with intravenous contrast. Thin isotropic axial imaging was obtained from above the lung apices through the level of the adrenal glands during dynamic infusion of 75 ml of intravenous Isovue 370 for evaluation of the vessels. Multiplanar and 3-D maximum intensity projection reformulations were created from the raw CT data with independent workstation software by the radiologist. These were interpreted in conjunction with the axial images to render the findings listed below. Before infusion of intravenous contrast, radiology personnel investigated the possibility of an allergic history and any history of reaction to iodinated contrast material. FINDINGS: Exam Quality: Overall exam quality is satisfactory. Pulmonary arterial enhancement is adequate, the breath-hold is optimal, and there are no significant artifacts impacting image quality. Pulmonary Arteries: There are no filling defects within the pulmonary arterial system to suggest pulmonary embolus. Cardiovascular: Unremarkable. Mediastinum/pericardium: Residual thymic tissue is present. Thyroid: Computed Tomography Report Unremarkable. Tracheobronchial tree: Widely patent. Pleura: No pleural effusion or pneumothorax. Lungs: No focal consolidation. Nodules: 5 mm nodule near the left lung apex (series 6, image 41). A 4 mm nodule near the lateral left lower lobe (series 6, image 151). Lymph nodes: No emerging adenopathy. Included images of the upper abdomen: A couple of small accessory splenules are present. Visualized musculoskeletal structures: No acute osseous abnormality is demonstrated. IMPRESSION: 1. Negative for acute pulmonary embolus. 2. The RV/LV ratio is <1. This is considered normal*. 3. Small nodules as above. Recommendations as below. *Reference: Chris Neil., Kim Laura, Kris Andersen., D?Ava Roe, and Bryce, Baltazar Leavitt. (2006). Can CT pulmonary angiography allow assessment of severity and prognosis in patients presenting with pulmonary embolism? What the radiologist needs to know. Radiographics, 26(1), 23-39. Notes: The short axis of the right ventricle is measured at the level of the tricuspid valve from inner wall to inner wall at its widest point. The short axis of the left ventricle is measured at the level of the mitral valve from inner wall to inner wall at its widest point. Note that the short axes of the right ventricle and left ventricle may be located at different axial CT levels. RV/LV diameter ratio <1: normal RV/LV diameter ratio >1: mildly abnormal RV/LV diameter ratio >1.5: severely abnormal Updated Fleischner Society Guidelines for Management of Small Pulmonary Nodules Detected on CT (2017) SOLITARY NODULE: LOW RISK PATIENT < 6 mm - No follow-up 6 - 8 mm - 6 - 12 month follow-up, then consider 18 - 24 months > 8 mm - PET/CT, biopsy, or 3 month follow-up SOLITARY NODULE: HIGH RISK PATIENT < 6 mm - Optional 6 - 12 months follow-up (suspicious morphology or upper lobe) 6 - 8 mm - 6 - 12 month follow-up, then 18 - 24 months > 8 mm - PET/CT, biopsy, or 3 month follow-up MULTIPLE NODULES: LOW RISK PATIENT (Use most suspicious) Computed Tomography Report All < 6 mm - No follow-up Any > 6 mm - 3 - 6 month follow-up, then 18 - 24 months MULTIPLE NODULES: HIGH RISK PATIENT (Use most suspicious) All < 6 mm - No follow-up Any > 6 mm - 3 - 6 month follow-up, then 18 - 24 months Report Dictated on Final Dictated: 11/25/2021 11:37 pm Dictating Physician: MD CHAPMAN CHRISTOPHER Signed Date and Time: 11/25/2021 11:49 pm Signed by: MD CHAPMAN CHRISTOPHER Transcribed Date and Time: 11/25/2021 11:37 Normal [facility] ECHO Complete 2D W Doppler W Coloron 11-26-2021 TRANSTHORACIC ECHOCARDIOGRAM PATIENT: Michelle Mauricio STUDY DATE: 11/26/2021 [facility]#: [id number] : 1985 AGE: 35 HT/WT: 172.7 cm (68 81.6 kg (179.6 in) lb) GENDER: F BP: 113 / 61 LOCATION: [facility] PATIENT Inpatient main STATUS: *ORDERING PHYSICIAN: * Quinton Dodge *FELLOW: * Narayan Farnsworth *READING PHYSICIAN: * Srinivas, *MEDICAL UNIT SECRETARY: Lizette Chan MD RDCS, AE INDICATIONS: EVAL FOR PFO SEVERITY, INTERVAL STRUCTURAL CARDIAC CHANF WITH STRAIN AND BUBBLE STUDY. CONCLUSIONS SUMMARY: 1. Left ventricle: Systolic function is normal by the biplane method of disks. The estimated ejection fraction is 65%. There are no regional wall motion abnormalities. Left ventricular diastolic function parameters are normal. 2. Right ventricle: Systolic function is normal. 3. Atrial septum: There is an atrial level shunt. There is evidence of right to left shunting with injection of agitated saline contrast. 4. No significant valve disease. STUDY DATA: Complete transthoracic echocardiogram. Procedure: Image quality was adequate. M-mode, complete 2D, 3D, complete spectral Doppler, and color flow Doppler images were acquired and archived for permanent storage and are available for subsequent review. Study status: Routine. Patient status: Inpatient. ECG RHYTHM: NSR FINDINGS LEFT VENTRICLE: Well visualized. Average LV global longitudinal strain is 19. This is normal. The cavity size is normal. Wall thickness is normal. Systolic function is normal by the biplane method of disks. The estimated ejection fraction is 65%. There are no regional wall motion abnormalities. Left ventricular diastolic function parameters are normal. RIGHT VENTRICLE: Well visualized. The cavity size is normal. Systolic function is normal. Right ventricular systolic pressure is within the normal range. VENTRICULAR SEPTUM: The septum is normal. LEFT ATRIUM: Well visualized. The atrium is normal in size. RIGHT ATRIUM: Well visualized. The atrium is normal in size. ATRIAL SEPTUM: There is an atrial level shunt. There is evidence of right to left shunting with injection of agitated saline contrast. MITRAL VALVE: Well visualized. Structurally normal valve. Leaflet separation is normal. Doppler: Transvalvular velocity is within the normal range. There is no evidence for stenosis. There is no regurgitation. The peak diastolic gradient is 2 mm Hg. AORTIC VALVE: Well visualized. Structurally normal valve. Trileaflet. Cusp separation is normal. Doppler: Transvalvular velocity is within the normal range. There is no stenosis. There is no regurgitation. TRICUSPID VALVE: Not well visualized. Structurally normal valve. Leaflet separation is normal. Doppler: Transvalvular velocity is within the normal range. There is no evidence for stenosis. There is no significant regurgitation. PULMONIC VALVE: Not well visualized. Cusp separation is normal. Doppler: Transvalvular velocity is within the normal range. There is no evidence for stenosis. There is no significant regurgitation. AORTA: The aorta is poorly visualized and normal size. Aortic root: The aortic root is normal in size. Ascending aorta: The ascending aorta is normal in size. PERICARDIUM: There is no pericardial effusion. SYSTEMIC VEINS: Inferior vena cava: The vessel is mildly dilated. The IVC collapses by greater than 50% with inspiration. Measurements Value Reference Ascending aorta ID, A-P, S 2.9 cm --------- Ascending aorta ID/bsa, A-P, S 1.5 cm/m^2 --------- Left ventricle Value Reference LV ID, ED 4.6 cm 3.8 - 5.2 LV ID, ES 3.2 cm 2.2 - 3.5 LV ID/bsa, ED 2.4 cm/m^2 2.3 - 3.1 LV ID/bsa, ES 1.7 cm/m^2 1.3 - 2.1 LV PW thickness, ED 0.7 cm 0.6 - 0.9 LV PW/LV ID ratio, ED 0.16 --------- LV wall mass 92 g 66 - 150 LV wall mass/bsa 47 g/m^2 44 - 88 Stroke volume/bsa, 1-p A2C 40.2 ml/m^2 --------- LV end-diastolic volume, 1-p A4C 94 ml 48 - 140 LV end-systolic volume, 1- (more content not included)... [facility] Melanie Espino MD - 11/26/2021 TRANSTHORACIC ECHOCARDIOGRAM PATIENT: Michelle Mauricio STUDY DATE: 11/26/2021 : 1985 AGE: 35 HT/WT: 172.7 cm (68 81.6 kg (179.6 in) lb) GENDER: F BP: 113 / 61 LOCATION: [facility] PATIENT Inpatient main STATUS: *ORDERING PHYSICIAN: * Quinton Dodge *FELLOW: * Narayan Farsnworth *READING PHYSICIAN: * Srinivas, *MEDICAL UNIT SECRETARY: * Radha Chan MD RDCS, AE INDICATIONS: EVAL FOR PFO SEVERITY, INTERVAL STRUCTURAL CARDIAC CHANF WITH STRAIN AND BUBBLE STUDY. CONCLUSIONS SUMMARY: 1. Left ventricle: Systolic function is normal by the biplane method of disks. The estimated ejection fraction is 65%. There are no regional wall motion abnormalities. Left ventricular diastolic function parameters are normal. 2. Right ventricle: Systolic function is normal. 3. Atrial septum: There is an atrial level shunt. There is evidence of right to left shunting with injection of agitated saline contrast. 4. No significant valve disease. STUDY DATA: Complete transthoracic echocardiogram. Procedure: Image quality was adequate. M-mode, complete 2D, 3D, complete spectral Doppler, and color flow Doppler images were acquired and archived for permanent storage and are available for subsequent review. Study status: Routine. Patient status: Inpatient. ECG RHYTHM: NSR FINDINGS LEFT VENTRICLE: Well visualized. Average LV global longitudinal strain is 19. This is normal. The cavity size is normal. Wall thickness is normal. Systolic function is normal by the biplane method of disks. The estimated ejection fraction is 65%. There are no regional wall motion abnormalities. Left ventricular diastolic function parameters are normal. RIGHT VENTRICLE: Well visualized. The cavity size is normal. Systolic function is normal. Right ventricular systolic pressure is within the normal range. VENTRICULAR SEPTUM: The septum is normal. LEFT ATRIUM: Well visualized. The atrium is normal in size. RIGHT ATRIUM: Well visualized. The atrium is normal in size. ATRIAL SEPTUM: There is an atrial level shunt. There is evidence of right to left shunting with injection of agitated saline contrast. MITRAL VALVE: Well visualized. Structurally normal valve. Leaflet separation is normal. Doppler: Transvalvular velocity is within the normal range. There is no evidence for stenosis. There is no regurgitation. The peak diastolic gradient is 2 mm Hg. AORTIC VALVE: Well visualized. Structurally normal valve. Trileaflet. Cusp separation is normal. Doppler: Transvalvular velocity is within the normal range. There is no stenosis. There is no regurgitation. TRICUSPID VALVE: Not well visualized. Structurally normal valve. Leaflet separation is normal. Doppler: Transvalvular velocity is within the normal range. There is no evidence for stenosis. There is no significant regurgitation. PULMONIC VALVE: Not well visualized. Cusp separation is normal. Doppler: Transvalvular velocity is within the normal range. There is no evidence for stenosis. There is no significant regurgitation. AORTA: The aorta is poorly visualized and normal size. Aortic root: The aortic root is normal in size. Ascending aorta: The ascending aorta is normal in size. PERICARDIUM: There is no pericardial effusion. SYSTEMIC VEINS: Inferior vena cava: The vessel is mildly dilated. The IVC collapses by greater than 50% with inspiration. Measurements Value Reference Ascending aorta ID, A-P, S 2.9 cm --------- Ascending aorta ID/bsa, A-P, S 1.5 cm/m^2 --------- Left ventricle Value Reference LV ID, ED 4.6 cm 3.8 - 5.2 LV ID, ES 3.2 cm 2.2 - 3.5 LV ID/bsa, ED 2.4 cm/m^2 2.3 - 3.1 LV ID/bsa, ES 1.7 cm/m^2 1.3 - 2.1 LV PW thickness, ED 0.7 cm 0.6 - 0.9 LV PW/LV ID ratio, ED 0.16 --------- LV wall mass 92 g 66 - 150 LV wall mass/bsa 47 g/m^2 44 - 88 Stroke volume/bsa, 1-p A2C 40.2 ml/m^2 --------- LV end-diastolic volume, 1-p A4C 94 ml 48 - 140 LV end-systolic volume, 1-p A4C 42 ml 12 - 60 LV end-diastolic volume, 2-p 100 ml 46 - 106 LV end-systolic volume, 2-p 35 ml 14 - 42 LV ejection fraction, 2-p 65 % 54 - 74 LV E/e', lateral 4.9 --------- LV E/e', medial 6.2 --------- LV E/e', average 5.4 --------- Ventricular septum Value Reference IVS thickness, ED 0.6 cm 0.6 - 0.9 LVOT Value Reference LVOT ID, A-P 1.9 cm --------- LVOT mean velocity, S 0.9 m/sec --------- LVOT peak gradient, S 6 mm Hg --------- (more content not included)... 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 : 1985 Requested By: JAQUAN LOZANO Order Number: [id number] Ailin MD: Fausto Treviño Measurements Intervals [place] Rate: 68 P: 74 NE: 140 QRS: 73 QRSD: 77 T: 56 QT: 382 QTc: 407 Interpretive Statements Sinus rhythm Probable left ventricular hypertrophy Electronically Signed On 11-26-2021 5:43:43 EDT by Fausto Treviño [facility] Result, Unknown Prov ider - 11/26/2021 [facility] Test Date: 2021-11-25 Pat Name: MICHELLE MAURICIO Department: [facility] Room: 1ESB Gender: F 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 : 1985 Requested By: JAQUAN LOZANO Order Number: [id number] Ailin MD: Fausto Treviño Measurements Intervals [place] Rate: 68 P: 74 NE: 140 QRS: 73 QRSD: 77 T: 56 QT: 382 QTc: 407 Interpretive Statements Sinus rhythm Probable left ventricular hypertrophy Electronically Signed On 11-26-2021 5:43:43 EDT by Fausto Treviño [facility] Work Phone: EKG 12 Lead - Chest PainOrde red By: Unknown Result on 11-26-2021 [facility] Echo Complete w/wo Contrasto n 11-26-2021 Echo Complete w/wo Contrast Patient Name: MICHELLE MAURICIO Ultrasound ACCESSION EXAM DATE/TIME PROCEDURE ORDERING PROVIDER [id number] 11/26/2021 14:05 EDT Echo Complete w/wo [id number] -QUINTON DODGE Contrast Reason For Exam (Echo Complete w/wo Contrast) Evaluation for PFO severity, interval structural cardiac change with strain imaging and bubble study Report TRANSTHORACIC ECHOCARDIOGRAM PATIENT: Michelle Mauricio STUDY DATE: 11/26/2021 : 1985 AGE: 35 HT/WT: 172.7 cm (68 81.6 kg (179.6 in) lb) GENDER: F BP: 113 / 61 LOCATION: [facility] PATIENT Inpatient main STATUS: *ORDERING PHYSICIAN: * Quinton Dodge *FELLOW: * Narayan Farnsworth *READING PHYSICIAN: * Srinivas, *MEDICAL UNIT SECRETARY: * Radha Chan MD RDCS, AE INDICATIONS: EVAL FOR PFO SEVERITY, INTERVAL STRUCTURAL CARDIAC CHANF WITH STRAIN AND BUBBLE STUDY. CONCLUSIONS SUMMARY: 1. Left ventricle: Systolic function is normal by the biplane method of disks. The estimated ejection fraction is 65%. There are no regional wall motion abnormalities. Left ventricular diastolic function parameters are normal. 2. Right ventricle: Systolic function is normal. 3. Atrial septum: There is an atrial level shunt. There is evidence of right to left shunting with injection of agitated saline contrast. 4. No significant valve disease. STUDY DATA: Complete transthoracic echocardiogram. Procedure: Image quality was adequate. M-mode, complete 2D, 3D, complete spectral Doppler, and color flow Doppler images were acquired and archived for permanent storage and are available for subsequent review. Study status: Routine. Patient status: Inpatient. ECG RHYTHM: NSR FINDINGS LEFT VENTRICLE: Well visualized. Average LV global longitudinal strain is 19. This is normal. The cavity size is normal. Wall thickness is Ultrasound Report normal. Systolic function is normal by the biplane method of disks. The estimated ejection fraction is 65%. There are no regional wall motion abnormalities. Left ventricular diastolic function parameters are normal. RIGHT VENTRICLE: Well visualized. The cavity size is normal. Systolic function is normal. Right ventricular systolic pressure is within the normal range. VENTRICULAR SEPTUM: The septum is normal. LEFT ATRIUM: Well visualized. The atrium is normal in size. RIGHT ATRIUM: Well visualized. The atrium is normal in size. ATRIAL SEPTUM: There is an atrial level shunt. There is evidence of right to left shunting with injection of agitated saline contrast. MITRAL VALVE: Well visualized. Structurally normal valve. Leaflet separation is normal. Doppler: Transvalvular velocity is within the normal range. There is no evidence for stenosis. There is no regurgitation. The peak diastolic gradient is 2 mm Hg. AORTIC VALVE: Well visualized. Structurally normal valve. Trileaflet. Cusp separation is normal. Doppler: Transvalvular velocity is within the normal range. There is no stenosis. There is no regurgitation. TRICUSPID VALVE: Not well visualized. Structurally normal valve. Leaflet separation is normal. Doppler: Transvalvular velocity is within the normal range. There is no evidence for stenosis. There is no significant regurgitation. PULMONIC VALVE: Not well visualized. Cusp separation is normal. Doppler: Transvalvular velocity is within the normal range. There is no evidence for stenosis. There is no significant regurgitation. AORTA: The aorta is poorly visualized and normal size. Aortic root: The aortic root is normal in size. Ascending aorta: The ascending aorta is normal in size. PERICARDIUM: There is no pericardial effusion. SYSTEMIC VEINS: Inferior vena cava: The vessel is mildly dilated. The IVC collapses by greater than 50% with inspiration. Measurements Value Reference Ascending aorta ID, A-P, S 2.9 cm --------- Ascending aorta ID/bsa, A-P, S 1.5 cm/m^2 --------- Left ventricle Value Reference LV ID, ED 4.6 cm 3.8 - 5.2 LV ID, ES 3.2 cm 2.2 - 3.5 LV ID/bsa, ED 2.4 cm/m^2 2.3 - 3.1 LV ID/bsa, ES 1.7 cm/m^2 1.3 - 2.1 LV PW thickness, ED 0.7 cm 0.6 - 0.9 LV PW/LV ID ratio, ED 0.16 --------- LV wall mass 92 g 66 - 150 LV wall mass/bsa 47 g/m^2 44 - 88 Stroke volume/bsa, 1-p A2C 40.2 ml/m^2 --------- LV end-diastolic volume, 1-p A4C 94 ml 48 - 140 LV end-systolic volume, 1-p A4C 42 ml 12 - 60 LV end-diastolic volume, 2-p 100 ml 46 - 106 LV end-systolic volume, 2-p 35 ml 14 - 42 LV ejection fraction, 2-p 65 % 54 - 74 LV E/e', lateral 4 (more content not included)... Normal [facility] Hemogram w/ Autodiffon 11-26 Abs Baso Cnt 0.1 10*3/uL Normal 0.0-0.2 [facility] Comment on above: Performed By: #### H EMDF, LIPD2, BMP3, TROPN ####[address] Abs Neutrophile Cnt 2.8 10*3/uL Normal 1.8-7.0 [facility] Comment on above: Performed By: #### H EMDF, LIPD2, BMP3, TROPN ####[id number] [place] [address] Basophils/100 WBC (Bld) 1.0 % Normal 0.0-2.0 [facility] Comment on above: Performed By: #### H EMDF, LIPD2, BMP3, TROPN ####[id number] [place], [place] Eosinophils (Bld) [#/Vol] 0.3 10*3/uL Normal 0.0-0.5 [facility] Comment on above: Performed By: #### H EMDF, LIPD2, BMP3, TROPN ####[address] [place], [place] Eosinophils/100 WBC (Bld) 4.5 % Normal 1.0-6.0 [facility] Comment on above: Performed By: #### H EMDF, LIPD2, BMP3, TROPN ####[id number] [place], [place] Erythrocyte distribution width (RBC) [Ratio] 13.6 % Normal 11.5-14.5 [facility] Comment on above: Performed By: #### H EMDF, LIPD2, BMP3, TROPN ####[address] Granulocytes/100 WBC (Bld) 43.9 % Normal 40.0-80.0 [facility] Comment on above: Performed By: #### H EMDF, LIPD2, BMP3, TROPN ####[address] Hematocrit (Bld) [Volume fraction] 39.3 % Normal 35.0-47.0 [facility] Comment on above: Performed By: #### H EMDF, LIPD2, BMP3, TROPN ####[address] Hemoglobin (Bld) [Mass/Vol] 13.7 g/dL Normal 11.7-16.0 [facility] Comment on above: Performed By: #### H EMDF, LIPD2, BMP3, TROPN ####[address] Lymphocytes (Bld) [#/Vol] 2.7 10*3/uL Normal 1.0-4.3 [facility] Comment on above: Performed By: #### H EMDF, LIPD2, BMP3, TROPN ####[address] Lymphocytes/100 WBC (Bld) 43.2 % High 20.0-40.0 [facility] Comment on above: Performed By: #### H EMDF, LIPD2, BMP3, TROPN ####[address] [place] MCH (RBC) [Entitic mass] 30.0 pg Normal 26.0-34.0 [facility] Comment on above: Performed By: #### H EMDF, LIPD2, BMP3, TROPN ####[address] [place], [place] MCHC 34.8 % Normal 32.0-36.0 [facility] Comment on above: Performed By: #### H EMDF, LIPD2, BMP3, TROPN ####[address] MCV (RBC) [Entitic vol] 86.1 fL Normal 79.0-98.0 [facility] Comment on above: Performed By: #### H EMDF, LIPD2, BMP3, TROPN ####[address] Monocytes (Bld) [#/Vol] 0.5 10*3/uL Normal 0.0-0.8 [facility] Comment on above: Performed By: #### H EMDF, LIPD2, BMP3, TROPN ####[address] Monocytes/100 WBC (Bld) 7.4 % Normal 2.0-10.0 [facility] Comment on above: Performed By: #### H EMDF, LIPD2, BMP3, TROPN ####[address] Platelet mean volume (Bld) [Entitic vol] 7.7 fL Normal 7.4-12.4 [facility] Comment on above: Result Comment: MPV is a calculated measurement using platelet volume ratio. Performed By: #### H EMDF, LIPD2, BMP3, TROPN ####[address] Platelets (Bld) [#/Vol] 204 10*3/uL Normal 140-440 [facility] Comment on above: Performed By: #### H EMDF, LIPD2, BMP3, TROPN ####[address] [place], [place] RBC (Bld) [#/Vol] 4.56 10*6/uL Normal 3.80-5.20 [facility] Comment on above: Performed By: #### H EMDF, LIPD2, BMP3, TROPN ####[address] [place], [place] WBC (Bld) [#/Vol] 6.3 10*3/uL Normal 3.6-10.7 [facility] Comment on above: Performed By: #### H EMDF, LIPD2, BMP3, TROPN ####[address] [place], [place] Lipid Panelon 11-26-2021 Chol/HDL 2 Normal [facility] Comment on above: Result Comment: Ref Range: < 3 Low Risk for CHD 3-6 Mod Risk for CHD > 6 High Risk for CHD Performed By: #### H EMDF, LIPD2, BMP3, TROPN ####[address] [place], [place] Cholesterol in HDL [Mass/Vol] 70 mg/dL High 40-60 [facility] Comment on above: Performed By: #### H EMDF, LIPD2, BMP3, TROPN ####[address] [place], [place] Low Density Lipoprotein 63 mg/dL Normal <100 [facility] Comment on above: Performed By: #### H EMDF, LIPD2, BMP3, TROPN ####[address] [place], [place] Triglyceride [Mass/Vol] 65 mg/dL Normal <150 [facility] Comment on above: Performed By: #### H EMDF, LIPD2, BMP3, TROPN ####[address] [place], [place] Cholesterol [Mass/Vol] 146 mg/dL Normal < 200 [facility] Comment on above: Performed By: #### H EMDF, LIPD2, BMP3, TROPN ####[address] [place] [address] Cholesterol [Mass/Vol] 146 mg/dL NINF - 200 mg/dL [facility] Cholesterol in HDL [Mass/Vol] 70 mg/dL High 40 - 60 mg/dL [facility] Cholesterol in LDL [Mass/Vol] 63 mg/dL NINF - 100 mg/dL [facility] Cholesterol.total/Xavier sterol in HDL [Mass ratio] 2 {ratio} [facility] Comment on above: Ref Range: < 3 Low Risk for CHD 3-6 Mod Risk for CHD > 6 High Risk for CHD Triglyceride [Mass/Vol] 65 mg/dL NINF - 150 mg/dL [facility] NT pro BNPon 11-26-2021 Natriuretic peptide B (Bld) [Mass/Vol] 44 pg/mL Normal 0-125 [facility] Comment on above: Performed By: #### B NP3, TROPN ####[address] [place] [address] Natriuretic peptide B (Bld) [Mass/Vol] 76 pg/mL Normal 0-125 [facility] Comment on above: Performed By: #### T SH5, BMP3, MG3, HEMDF, TROPN, LFT3, BNP3 #### [facility] [address] [place] [address] No Panel Informationon 11-26 Interpretation and review of laboratory results Abnormal [facility] Test Performed by [facility], [address] [place] [id number] [place] [address] LAB [facility] [id number] 11-26-2021 SARS-CoV-2 (COVID-19) RNA RENO+probe Ql (Unsp spec) SARS-CoV-2 --> Status: F Not Detected. Expected result: Not Detected _ Method: Real-time, RT-PCR Negative results do not preclude SARS-CoV-2 infection and should not be used as the sole basis for treatment or other patient management decisions. This assay was developed by [employer] and distributed under an Emergency Use Authorization (EUA) granted by the FDA for the qualitative detection of SARS-CoV-2 nucleic acid. Provider and patient fact sheets can be found at https://www.fda.gov/medi a/962932/download and https://www.fda.gov/medi a/402904/download. Expected result: Not Detected _ Method: Real-time, RT-PCR Negative results do not preclude SARS-CoV-2 infection and should not be used as the sole basis for treatment or other patient management decisions. This assay was developed by [employer] and distributed under an Emergency Use Authorization (EUA) granted by the FDA for the qualitative detection of SARS-CoV-2 nucleic acid. Provider and patient fact sheets can be found at https://www.fda.gov/medi a/916618/download and https://www.fda.gov/medi a/180797/download. Normal [facility] Comment on above: Performed By: #### C OVID ####[address] [place], [place] Troponinon 11-26-2021 Troponin I.cardiac [Mass/Vol] 0.019 ng/mL 0 - 0.034 ng/mL [facility] Work Phone: Comment on above: . Test Performed by [facility], [address] [place] [id number] [place] [address] LAB [facility] Work Phone: Troponin I.cardiac [Mass/Vol] 0.019 ng/mL 0 - 0.034 ng/mL [facility] Comment on above: Slightly hemolysed, interpret with caution. . Test Performed by [id number] [place] [address] LAB [facility] Troponin Ion 11-26-2021 Troponin I.cardiac [Mass/Vol] 0.019 ng/mL Normal 0.000-0.034 [facility] Comment on above: Result Comment: . Performed By: #### B NP3, TROPN ####[facility] [id number] [place], [place] Troponin I.cardiac [Mass/Vol] 0.019 ng/mL Normal 0.000-0.034 [facility] Comment on above: Result Comment: Slig htly hemolysed, interpret with caution. . Performed By: #### H EMDF, LIPD2, BMP3, TROPN ####[facility] [place] [address] Add On Lab Teston 11-25-2021 Add On Accepted [facility] Work Phone: Comment on above: Specimen available & acceptable for analysis. Test Performed by [facility], [address] [place] [address] [facility] LAB [facility] Work Phone: Basic Metabolic Panelon 11-16 Anion gap [Moles/Vol] 7 mmol/L Normal 3-13 [facility] Comment on above: Performed By: #### T SH5, BMP3, MG3, HEMDF, TROPN, LFT3, BNP3 #### [address] [place] [address] Calcium [Mass/Vol] 8.8 mg/dL Normal 8.4-10.4 [facility] Comment on above: Performed By: #### T SH5, BMP3, MG3, HEMDF, TROPN, LFT3, BNP3 #### [address] [place] [address] CO2 [Moles/Vol] 22 mmol/L Normal 22-30 [facility] Comment on above: Performed By: #### T SH5, BMP3, MG3, HEMDF, TROPN, LFT3, BNP3 #### [address] [place] [address] Glucose [Mass/Vol] 100 mg/dL Normal 70-100 [facility] Comment on above: Performed By: #### T SH5, BMP3, MG3, HEMDF, TROPN, LFT3, BNP3 #### [address] [place] [address] Urea nitrogen [Mass/Vol] 13 mg/dL Normal 9-20 [facility] Comment on above: Performed By: #### T SH5, BMP3, MG3, HEMDF, TROPN, LFT3, BNP3 #### [address] [place] [address] Creatinine [Mass/Vol] 0.58 mg/dL Normal 0.52-1.25 [facility] Comment on above: Performed By: #### T SH5, BMP3, MG3, HEMDF, TROPN, LFT3, BNP3 #### [address] eGFR OTHER > 90.0 Normal >60 [facility] Comment on above: Result Comment: KDIG O guidelines provide the following GFR categories: Stage GFR(ml/min/1.73 m2) Terms G1 >=90 Normal or high G2 60-89 Mildly decreased* G3a 45-59 Mildly to moderately decreased G3b 30-44 Moderately to severely decreased G4 15-29 Severely decreased G5 <15 Kidney failure *Relative to young adult level. In the absence of evidence of kidney damage, neither GFR category G1 nor G2 fulfill the criteria for CKD. The CKD-EPI equation is validated in individuals 18 years of age and older. Currently the best equation for estimating glomerular filtration rate (GFR) from serum creatinine in children is the Bedside Hernandez equation. It is less accurate in patients with extremes of muscle mass, restriction of dietary protein, ingestion of creatine, extra-renal metabolism of creatinine, or treatment with medications that affect renal tubular creatinine secretion. Performed By: #### T SH5, BMP3, MG3, HEMDF, TROPN, LFT3, BNP3 #### [address] GFR/1.73 sq M.predicted among blacks MDRD (S/P/Bld) [Vol rate/Area] mL/min/{1.73_m2} Normal >60 [facility] Comment on above: Performed By: #### T SH5, BMP3, MG3, HEMDF, TROPN, LFT3, BNP3 #### [address] Chloride [Moles/Vol] 111 mmol/L High 98-107 [facility] Comment on above: Performed By: #### T SH5, BMP3, MG3, HEMDF, TROPN, LFT3, BNP3 #### [address] Potassium [Moles/Vol] 3.7 mmol/L Normal 3.5-5.1 [facility] Comment on above: Performed By: #### T SH5, BMP3, MG3, HEMDF, TROPN, LFT3, BNP3 #### [address] Sodium [Moles/Vol] 141 mmol/L Normal 135-145 [facility] Comment on above: Performed By: #### T SH5, BMP3, MG3, HEMDF, TROPN, LFT3, BNP3 #### [facility] [address] [place], [place] Anion gap [Moles/Vol] 7 mmol/L 3 - 13 mmol/L [facility] Calcium [Mass/Vol] 8.8 mg/dL 8.4 - 10. 4 mg/dL [facility] Chloride [Moles/Vol] 111 mmol/L High 98 - 10 7 mmol/L [facility] CO2 [Moles/Vol] 22 mmol/L 22 - 30 mmol/L [facility] Creatinine [Mass/Vol] 0.58 mg/dL 0.52 - 1.25 mg/dL [facility] eGFR mL/min 60 - P INF mL/min [facility] EGFR IF NonAfrican [place]alese mL/min 60 - PINF mL/min [facility] Comment on above: KDIGO guidelines pro vide the following GFR categories: Stage GFR(ml/min/1.73 m2) Terms G1 >=90 Normal or high G2 60-89 Mildly decreased* G3a 45-59 Mildly to moderately decreased G3b 30-44 Moderately to severely decreased G4 15-29 Severely decreased G5 <15 Kidney failure *Relative to young adult level. In the absence of evidence of kidney damage, neither GFR category G1 nor G2 fulfill the criteria for CKD. The CKD-EPI equation is validated in individuals 18 years of age and older. Currently the best equation for estimating glomerular filtration rate (GFR) from serum creatinine in children is the Bedside Hernandez equation. It is less accurate in patients with extremes of muscle mass, restriction of dietary protein, ingestion of creatine, extra-renal metabolism of creatinine, or treatment with medications that affect renal tubular creatinine secretion. Glucose [Mass/Vol] 100 mg/dL 70 - 100 mg/dL [facility] Interpretation and review of laboratory results Abnormal [facility] Potassium [Moles/Vol] 3.7 mmol/L 3.5 - 5.1 mmol/L [facility] Sodium [Moles/Vol] 141 mmol/L 135 - 145 mmol/L [facility] Urea nitrogen (BldV) [Mass/Vol] 13 mg/dL 9 - 20 mg/dL [facility] Brain Natriuretic Peptideon 11-25-2021 Natriuretic peptide B (Bld) [Mass/Vol] 76 pg/mL 0 - 125 pg/mL [facility] Test Performed by [facility], [address] [place] [id number] [place] [address] LAB [facility] CBC with Auto Differentialon 11-25-2021 Absolute Baso # 0.0 10*3/uL 0 - 0.2 10*3/uL [facility] Absolute Neut # 5.8 10*3/uL 1.8 - 7 10*3/uL [facility] Basophils/100 WBC (Bld) 0.5 % 0 - 2 % S [facility] Eosinophils (Bld) [#/Vol] 0.2 10*3/uL 0 - 0.5 10*3/uL [facility] Eosinophils/100 WBC (Bld) 2.8 % 1 - 6 % [facility] Granulocytes/100 WBC (Bld) 65.6 % 40 - 80 % [facility] Hematocrit (Bld) [Volume fraction] 40.2 % 35 - 47 % [facility] Hemoglobin (Bld) [Mass/Vol] 13.7 g/dL 11.7 - 16 g/dL [facility] Lymphocytes (Bld) [#/Vol] 2.0 10*3/uL 1 - 4.3 10*3/uL [facility] Lymphocytes/100 WBC (Bld) 23.1 % 20 - 40 % [facility] MCH (RBC) [Entitic mass] 29.2 pg 26 - 34 pg [facility] MCHC (RBC) [Mass/Vol] 34.1 % 32 - 36 % [facility] MCV (RBC) [Entitic vol] 85.5 fL 79 - 98 fL [facility] Monocytes (Bld) [#/Vol] 0.7 10*3/uL 0 - 0.8 10*3/uL [facility] Monocytes/100 WBC (Bld) 8.0 % 2 - 10 % [facility] Platelet distribution width (Bld) [Ratio] 13.5 % 11.5 - 14.5 % [facility] Platelet mean volume (Bld) [Entitic vol] 7.4 fL 7.4 - 12.4 fL [facility] Comment on above: MPV is a calculated measurement using platelet volume ratio. Platelets (Bld) [#/Vol] 218 10*3/uL 140 - 440 10*3/uL [facility] RBC (Bld) [#/Vol] 4.70 10*6/uL 3.8 - 5.2 10*6/uL [facility] WBC (Bld) [#/Vol] 8.8 10*3/uL 3.6 - 10.7 10*3/uL [facility] Test Performed by [address] [address] [facility] LAB [facility] CTA Chest W WO (PE study)on 11-25-2021 Patient Name: MICHELLE MAURICIO Computed Tomography ACCESSION EXAM DATE/TIME PROCEDURE ORDERING PROVIDER [id number] 11/25/2021 23:29 EDT CTA Chest w/ + w/o [id number] -CRESAP, FAUSTO Contrast CPT code 19199 Q9967 Reason For Exam (CTA Chest w/ + w/o Contrast) SOB Report EXAMINATION: CTA of the chest with intravenous contrast, pulmonary embolism protocol. EXAM DATE & TIME: 11/25/2021 11:29 PM EDT INDICATION: SOB ADDITIONAL INFORMATION: 35-year-old female with shortness of breath presents for evaluation COMPARISON: None LIMITATIONS: As below TECHNIQUE: CT angiogram of the chest was performed with intravenous contrast. Thin isotropic axial imaging was obtained from above the lung apices through the level of the adrenal glands during dynamic infusion of 75 ml of intravenous Isovue 370 for evaluation of the vessels. Multiplanar and 3-D maximum intensity projection reformulations were created from the raw CT data with independent workstation software by the radiologist. These were interpreted in conjunction with the axial images to render the findings listed below. Before infusion of intravenous contrast, radiology personnel investigated the possibility of an allergic history and any history of reaction to iodinated contrast material. FINDINGS: Exam Quality: Overall exam quality is satisfactory. Pulmonary arterial enhancement is adequate, the breath-hold is optimal, and there are no significant artifacts impacting image quality. Pulmonary Arteries: There are no filling defects within the pulmonary arterial system to suggest pulmonary embolus. Cardiovascular: Unremarkable. Mediastinum/pericardium: Residual thymic tissue is present. Thyroid: Computed Tomography Report Unremarkable. Tracheobronchial tree: Widely patent. Pleura: No pleural effusion or pneumothorax. Lungs: No focal consolidation. Nodules: 5 mm nodule near the left lung apex (series 6, image 41). A 4 mm nodule near the lateral left lower lobe (series 6, image 151). Lymph nodes: No emerging adenopathy. Included images of the upper abdomen: A couple of small accessory splenules are present. Visualized musculoskeletal structures: No acute osseous abnormality is demonstrated. IMPRESSION: 1. Negative for acute pulmonary embolus. 2. The RV/LV ratio is <1. This is considered normal*. 3. Small nodules as above. Recommendations as below. *Reference: Chris Neil., Rohith Laura., Kris Andersen., D?Ava Roe, & Bryce, R. Tree. (2006). Can CT pulmonary angiography allow assessment of severity and prognosis in patients presenting with pulmonary embolism? What the radiologist needs to know. Radiographics, 26(1), 23-39. Notes: The short axis of the right ventricle is measured at the level of the tricuspid valve from inner wall to inner wall at its widest point. The short axis of the left ventricle is measured at the level of the mitral valve from inner wall to inner wall at its widest point. Note that the short axes of the right ventricle and left ventricle may be located at different axial CT levels. RV/LV diameter ratio <1: normal RV/LV diameter ratio >1: mildly abnormal RV/LV diameter ratio >1.5: severely abnormal Updated Fleischner Society Guidelines for Management of Small Pulmonary Nodules Detected on CT (2017) SOLITARY NODULE: LOW RISK PATIENT < 6 mm - No follow-up 6 - 8 mm - 6 - 12 month follow-up, then consider 18 - 24 months > 8 mm - PET/CT, biopsy, or 3 month follow-up SOLITARY NODULE: HIGH RISK PATIENT < 6 mm - Optional 6 - 12 months follow-up (suspicious morphology or upper lobe) 6 - 8 mm - 6 - 12 month follow-up, then 18 - 24 months > 8 mm - PET/CT, biopsy, or 3 month follow-up MULTIPLE NODULES: LOW RISK PATIENT (Use most suspicious) Computed Tomography Report All < 6 mm - No follow-up Any > 6 mm - 3 - 6 month follow-up, then 18 - 24 months MULTIPLE NODULES: HIGH RISK PATIENT (Use most suspicious) All < 6 mm - No follow-up Any > 6 mm - 3 - 6 month follow-up, then 18 - 24 months Report Dictated on --- Final --- Dictated: 11/25/2021 11:37 pm Dictating Physician: MD CHAPMAN CHRISTOPHER Signed Date and Time: 11/25/2021 11:49 pm Signed by: MD CHAPMAN CHRISTOPHER Transcribed Date and Time: 11/25/2021 11:37 [facility] RAD Luciano Chapman MD - 11/25/2021 Patient Name: MICHELLE MAURICIO Computed Tomography ACCESSION EXAM DATE/TIME PROCEDURE ORDERING PROVIDER [id number] 11/25/2021 23:29 EDT CTA Chest w/ + w/o [id number] -CRESAP FAUSTO Contrast CPT code 96457 Q9967 Reason For Exam (CTA Chest w/ + w/o Contrast) SOB Report EXAMINATION: CTA of the chest with intravenous contrast, pulmonary embolism protocol. EXAM DATE & TIME: 11/25/2021 11:29 PM EDT INDICATION: SOB ADDITIONAL INFORMATION: 35-year-old female with shortness of breath presents for evaluation COMPARISON: None LIMITATIONS: As below TECHNIQUE: CT angiogram of the chest was performed with intravenous contrast. Thin isotropic axial imaging was obtained from above the lung apices through the level of the adrenal glands during dynamic infusion of 75 ml of intravenous Isovue 370 for evaluation of the vessels. Multiplanar and 3-D maximum intensity projection reformulations were created from the raw CT data with independent workstation software by the radiologist. These were interpreted in conjunction with the axial images to render the findings listed below. Before infusion of intravenous contrast, radiology personnel investigated the possibility of an allergic history and any history of reaction to iodinated contrast material. FINDINGS: Exam Quality: Overall exam quality is satisfactory. Pulmonary arterial enhancement is adequate, the breath-hold is optimal, and there are no significant artifacts impacting image quality. Pulmonary Arteries: There are no filling defects within the pulmonary arterial system to suggest pulmonary embolus. Cardiovascular: Unremarkable. Mediastinum/pericardium: Residual thymic tissue is present. Thyroid: Computed Tomography Report Unremarkable. Tracheobronchial tree: Widely patent. Pleura: No pleural effusion or pneumothorax. Lungs: No focal consolidation. Nodules: 5 mm nodule near the left lung apex (series 6, image 41). A 4 mm nodule near the lateral left lower lobe (series 6, image 151). Lymph nodes: No emerging adenopathy. Included images of the upper abdomen: A couple of small accessory splenules are present. Visualized musculoskeletal structures: No acute osseous abnormality is demonstrated. IMPRESSION: 1. Negative for acute pulmonary embolus. 2. The RV/LV ratio is <1. This is considered normal*. 3. Small nodules as above. Recommendations as below. *Reference: Chris Neil., Rohith Laura., Ganesh, Kris Balderrama., D?Ava Roe, & Bryce, R. Tree. (2006). Can CT pulmonary angiography allow assessment of severity and prognosis in patients presenting with pulmonary embolism? What the radiologist needs to know. Radiographics, 26(1), 23-39. Notes: The short axis of the right ventricle is measured at the level of the tricuspid valve from inner wall to inner wall at its widest point. The short axis of the left ventricle is measured at the level of the mitral valve from inner wall to inner wall at its widest point. Note that the short axes of the right ventricle and left ventricle may be located at different axial CT levels. RV/LV diameter ratio <1: normal RV/LV diameter ratio >1: mildly abnormal RV/LV diameter ratio >1.5: severely abnormal Updated Fleischner Society Guidelines for Management of Small Pulmonary Nodules Detected on CT (2017) SOLITARY NODULE: LOW RISK PATIENT < 6 mm - No follow-up 6 - 8 mm - 6 - 12 month follow-up, then consider 18 - 24 months > 8 mm - PET/CT, biopsy, or 3 month follow-up SOLITARY NODULE: HIGH RISK PATIENT < 6 mm - Optional 6 - 12 months follow-up (suspicious morphology or upper lobe) 6 - 8 mm - 6 - 12 month follow-up, then 18 - 24 months > 8 mm - PET/CT, biopsy, or 3 month follow-up MULTIPLE NODULES: LOW RISK PATIENT (Use most suspicious) Computed Tomography Report All < 6 mm - No follow-up Any > 6 mm - 3 - 6 month follow-up, then 18 - 24 months MULTIPLE NODULES: HIGH RISK PATIENT (Use most suspicious) All < 6 mm - No follow-up Any > 6 mm - 3 - 6 month follow-up, then 18 - 24 months Report Dictated on --- Final --- Dictated: 11/25/2021 11:37 pm Dictating Physician: MD CHAPMAN CHRISTOPHER Signed Date and Time: 11/25/2021 11:49 pm Signed by: MD CHAPMAN CHRISTOPHER Transcribed Date and Time: 11/25/2021 11:37 [facility] Work Phone: CTA Chest W WO (PE study)Ord ered By: Luciano Chapman on 11-25-2021 [facility] Work Phone: ED Provider Noteon ED Provider Note Emergency Department Encounter [facility] EMERGENCY DEPT Patient: Michelle Mauricio : 1985 Date of Evaluation: 11/25/2021 ED Supervising Physician: Fausto Treviño MD I independently examined and evaluated Michelle Mauricio. This will serve as my Supervisory note as the primary education professor of record and shared attestation. I did perform a substantive portion of the visit including all aspects of the Medical Decision Making. I wore appropriate PPE for the entirety of this encounter. In brief, Michelle Mauricio is a 35 y.o. female that presents to the emergency department complaining of worsening shortness of breath. Patient had a baby about 6 months ago. Has been having shortness of breath is been getting worse over the last couple of weeks. Does have some chest pain with it. States when she ambulates she gets very diaphoretic and short of breath as well. Has had no cough. No numbness or tingling other than her face and her hands. No fevers or chills. Does have a history of asthma. Did see a delinquency prevention officer and had a negative work-up there. No abdominal pain or back pain. Focused exam: Tachypneic, appears to be trying to catch her breath. Lung sounds were clear. Heart rate is regular rate and rhythm. Abdomen soft nontender. Somewhat pale in appearance. Brief ED course/MDM: Patient present emergency room with complaints of shortness of breath appears to be possibly worse with activity. Also associate with diaphoresis with activity and some chest pain. At this time laboratory can imaging will be performed to further evaluate. Apparently had a negative D-dimer in the outpatient setting however, given her symptoms I am concerned for PE and will get a CT scan of her chest. EKG is unremarkable. Patient is extremely dyspneic although laboratory work and imaging unremarkable. I do not have a good explanation as to why she is so short of breath and becoming diaphoretic with chest pain with ambulation. At this time, I do feel that she warrants further work-up by pulmonology given her significant dyspnea. She is visibly short of breath with talking and speaking to me at bedside. Will be admitted. Diagnosis/Plan: Shortness of breath, admit All diagnostic, treatment, and disposition decisions were made by myself in conjunction with the NUNO/Resident. For all further details of the patient's emergency department visit, please see their documentation. Comment: Please note this report has been produced using speech recognition software and may contain errors related to that system including errors in grammar, punctuation, and spelling, as well as words and phrases that may be inappropriate. If there are any questions or concerns please feel free to contact the dictating provider for clarification. Fausto Treviño MD [employer] Fausto Treviño MD 11/26/21 0037 [facility] ED Provider Note Pt Name: Michelle Mauricio Birthdate 1985 Date of evaluation: 11/25/2021 Provider: Nahun Gomez MD CHIEF COMPLAINT Chief Complaint Patient presents with ? Shortness of Breath Pt c/o SOB x1 month. Pt states she feels really weak when she is doing activity. Even talking gets her SOB. Pt states she is having chest pain. Pt states she had a baby 6 months ago. States she feels like she is going to pass out. ? Fatigue HISTORY OF PRESENT ILLNESS (Location/Symptom, Timing/Onset, Context/Setting, Quality, Duration, Modifying Factors, Severity) Note limiting factors. HPI Michelle Mauricio is a 35 y.o. female with past medical history of rheumatoid arthritis, [...] on more inhalers given her history of asthma however this does not improve her symptoms. She was also evaluated by cardiology who did a echocardiogram which did not show any abnormalities. She states that she is short of breath on exertion and when laying flat. She was recently and gave 6 months ago. She denies any personal or family history of hereditary lung disease. She denies any chest pain. She endorses some mild lightheadedness on exertion associated with her shortness of breath. Denies any additional subjective complaints. Nursing Notes were reviewed. REVIEW OF SYSTEMS (2+ for level 4; 10+ for level 5) Review of Systems ROS negative except for as mentioned in the HPI PAST MEDICAL HISTORY Past Medical History: Diagnosis Date ? Arthritis ? Asthma ? Blurry vision ? Fractures 2009 right tibia fx ? Immune deficiency disorder (HCC) ? Mass right leg ? Rheumatoid arthritis (HCC) SURGICAL HISTORY Past Surgical History: Procedure Laterality Date ? ABDOMEN SURGERY blood vessel rupture ? APPENDECTOMY ? GALLBLADDER SURGERY ? LIVER BIOPSY ? OVARY REMOVAL CURRENT MEDICATIONS Previous Medications ACTEMRA 162 MG/0.9ML SOSY INJECTION ALBUTEROL SULFATE HFA 108 (90 BASE) MCG/ACT INHALER INHALE 2 PUFFS UP TO 4 TIMES DAILY NEEDED BUPROPION (WELLBUTRIN XL) 300 MG EXTENDED RELEASE TABLET CALCIUM CARBONATE (OSCAL) 500 MG TABS TABLET Take 500 mg by mouth daily CERTOLIZUMAB PEGOL (CIMZIA) 2 X 200 MG/ML KIT INJECTION Inject into the skin CHOLECALCIFEROL (VITAMIN D) 50 MCG (2000 UT) CAPS CAPSULE Take by mouth DICLOFENAC SODIUM (VOLTAREN) 1 % GEL Apply 2 g topically 4 times daily ETONOGESTREL-ETHINYL ESTRADIOL ([facility]) Place vaginally SPIRONOLACTONE (ALDACTONE) 100 MG TABLET 100 mg VITAMIN B-12 (CYANOCOBALAMIN) 1000 MCG TABLET Take 1,000 mcg by mouth daily ALLERGIES Doxycycline, Tramadol, and Zosyn [piperacillin sod-tazobactam so] FAMILY HISTORY Family History Problem Relation Age of Onset ? Arthritis Mother ? Rheum Arthritis Mother ? Heart Disease Father ? No Known Problems Sister ? No Known Problems Brother ? No Known Problems Son ? No Known Problems Daughter SOCIAL HISTORY Social History Socioeconomic History ? Marital status: Single Spouse name: None ? Number of children: None ? Years of education: None ? Highest education level: None Tobacco Use ? Smoking status: Never ? Smokeless tobacco: Never Vaping Use ? Vaping Use: Never used Substance and Sexual Activity ? Alcohol use: Never ? Drug use: Never SCREENINGS Kelvin Coma Scale Eye Opening: Spontaneous Best Verbal Response: Oriented Best Motor Response: Obeys commands [place] Coma Scale Score: 15 PHYSICAL EXAM (up to 7 for level 4, 8 or more for level 5) ED Triage Vitals BP Temp Temp Source Heart Rate Resp SpO2 Height Weight 11/25/21 1337 11/25/21 1337 11/25/21 1337 11/25/21 1337 11/25/21 1337 11/25/21 1337 11/25/21 1339 11/25/21 1339 134/74 97.8 ?F (36.6 ?C) Temporal 72 15 99 % 5' 8 (1.727 m) 180 lb (81.6 kg) Physical Exam GENERAL APPEARANCE: Awake and alert. Cooperative. No acute distress. HEAD: Normocephalic. Atraumatic. EYES: EOM's grossly intact. Sclera anicteric. ENT: Mucous membranes are moist. Tolerates saliva. No trismus. NECK: Supple. No meningismus. Trachea midline. HEART: RRR. Radial pulses 2+. LUNGS: Mild respiratory distress. Able to speak in short sentences. Lung sounds are present bilaterally. Good air movement. No wheezes. ABDOMEN: Soft. Non-tender. No guarding or rebound. BACK: Atraumatic. No midline tenderness, step offs or deformities. No CVA tenderness. EXTREMITIES: No acute deformities. Full ROM in all 4 extremities. No numbness or paresthesias. Pulses intact. Capillary refill <2 sec. SKIN: Warm and dry. NEUROLOGICAL: No gross facial drooping. Moves all 4 extremities spontaneously. PSYCHIA (more content not included)... Normal [facility] [place] Hemogram w/ Autodiffon 11-25 Abs Baso Cnt 0.0 10*3/uL Normal 0.0-0.2 [facility] Comment on above: Performed By: #### T SH5, BMP3, MG3, HEMDF, TROPN, LFT3, BNP3 #### [facility] [address] [place] [address] Abs Neutrophile Cnt 5.8 10*3/uL Normal 1.8-7.0 [facility] Comment on above: Performed By: #### T SH5, BMP3, MG3, HEMDF, TROPN, LFT3, BNP3 #### [place] [address] [place] [address] Basophils/100 WBC (Bld) 0.5 % Normal 0.0-2.0 [facility] Comment on above: Performed By: #### T SH5, BMP3, MG3, HEMDF, TROPN, LFT3, BNP3 #### [address] [address] [place], [place] Eosinophils (Bld) [#/Vol] 0.2 10*3/uL Normal 0.0-0.5 [facility] Comment on above: Performed By: #### T SH5, BMP3, MG3, HEMDF, TROPN, LFT3, BNP3 #### [address] [address] [place], [place] Eosinophils/100 WBC (Bld) 2.8 % Normal 1.0-6.0 [facility] Comment on above: Performed By: #### T SH5, BMP3, MG3, HEMDF, TROPN, LFT3, BNP3 #### [address] [place], [place] Erythrocyte distribution width (RBC) [Ratio] 13.5 % Normal 11.5-14.5 [facility] Comment on above: Performed By: #### T SH5, BMP3, MG3, HEMDF, TROPN, LFT3, BNP3 #### [address] [address] [place], [place] Granulocytes/100 WBC (Bld) 65.6 % Normal 40.0-80.0 [facility] Comment on above: Performed By: #### T SH5, BMP3, MG3, HEMDF, TROPN, LFT3, BNP3 #### [address] [address] [place], [place] Hematocrit (Bld) [Volume fraction] 40.2 % Normal 35.0-47.0 [facility] Comment on above: Performed By: #### T SH5, BMP3, MG3, HEMDF, TROPN, LFT3, BNP3 #### [address] Hemoglobin (Bld) [Mass/Vol] 13.7 g/dL Normal 11.7-16.0 [facility] Comment on above: Performed By: #### T SH5, BMP3, MG3, HEMDF, TROPN, LFT3, BNP3 #### [address] Lymphocytes (Bld) [#/Vol] 2.0 10*3/uL Normal 1.0-4.3 [facility] Comment on above: Performed By: #### T SH5, BMP3, MG3, HEMDF, TROPN, LFT3, BNP3 #### [address] Lymphocytes/100 WBC (Bld) 23.1 % Normal 20.0-40.0 [facility] Comment on above: Performed By: #### T SH5, BMP3, MG3, HEMDF, TROPN, LFT3, BNP3 #### [address] MCH (RBC) [Entitic mass] 29.2 pg Normal 26.0-34.0 [facility] Comment on above: Performed By: #### T SH5, BMP3, MG3, HEMDF, TROPN, LFT3, BNP3 #### [address] MCHC 34.1 % Normal 32.0-36.0 [facility] Comment on above: Performed By: #### T SH5, BMP3, MG3, HEMDF, TROPN, LFT3, BNP3 #### [address] MCV (RBC) [Entitic vol] 85.5 fL Normal 79.0-98.0 [facility] Comment on above: Performed By: #### T SH5, BMP3, MG3, HEMDF, TROPN, LFT3, BNP3 #### [address] [place], [place] Monocytes (Bld) [#/Vol] 0.7 10*3/uL Normal 0.0-0.8 [facility] Comment on above: Performed By: #### T SH5, BMP3, MG3, HEMDF, TROPN, LFT3, BNP3 #### [place] [place], [place] Monocytes/100 WBC (Bld) 8.0 % Normal 2.0-10.0 [facility] Comment on above: Performed By: #### T SH5, BMP3, MG3, HEMDF, TROPN, LFT3, BNP3 #### [place] [address], [place] Platelet mean volume (Bld) [Entitic vol] 7.4 fL Normal 7.4-12.4 [facility] Comment on above: Result Comment: MPV is a calculated measurement using platelet volume ratio. Performed By: #### T SH5, BMP3, MG3, HEMDF, TROPN, LFT3, BNP3 #### [place], [place] Platelets (Bld) [#/Vol] 218 10*3/uL Normal 140-440 [facility] Comment on above: Performed By: #### T SH5, BMP3, MG3, HEMDF, TROPN, LFT3, BNP3 #### [place] [address] [place], [place] RBC (Bld) [#/Vol] 4.70 10*6/uL Normal 3.80-5.20 [facility] Comment on above: Performed By: #### T SH5, BMP3, MG3, HEMDF, TROPN, LFT3, BNP3 #### [address] WBC (Bld) [#/Vol] 8.8 10*3/uL Normal 3.6-10.7 [facility] Comment on above: Performed By: #### T SH5, BMP3, MG3, HEMDF, TROPN, LFT3, BNP3 #### [address] Hepatic Functionon 2 ALP [Catalytic activity/Vol] 59 U/L Normal 38-126 [facility] Comment on above: Performed By: #### T SH5, BMP3, MG3, HEMDF, TROPN, LFT3, BNP3 #### [place] [address] [place], [place] ALT [Catalytic activity/Vol] 16 U/L Normal 0-34 [facility] Comment on above: Result Comment: The ALT test is performed by an updated assay method. Please note that the reference intervals have been changed and are now sex specific. Performed By: #### T SH5, BMP3, MG3, HEMDF, TROPN, LFT3, BNP3 #### [address] AST [Catalytic activity/Vol] 22 U/L Normal 15-46 [facility] Comment on above: Performed By: #### T SH5, BMP3, MG3, HEMDF, TROPN, LFT3, BNP3 #### [place] [address] [place], [place] Bilirubin [Mass/Vol] 0.3 mg/dL Normal 0.2-1.3 [facility] Comment on above: Performed By: #### T SH5, BMP3, MG3, HEMDF, TROPN, LFT3, BNP3 #### [address] Bilirubin.indirect [Mass/Vol] 0.0 mg/dL Normal 0.0-0.3 [facility] Comment on above: Performed By: #### T SH5, BMP3, MG3, HEMDF, TROPN, LFT3, BNP3 #### [address] Protein [Mass/Vol] 7.2 g/dL Normal 6.3-8.2 [facility] Comment on above: Performed By: #### T SH5, BMP3, MG3, HEMDF, TROPN, LFT3, BNP3 #### [address] [address] Albumin [Mass/Vol] 4.2 g/dL Normal 3.5-5.0 [facility] Comment on above: Performed By: #### T SH5, BMP3, MG3, HEMDF, TROPN, LFT3, BNP3 #### [address] [address] Hepatic Function Panelon Albumin [Mass/Vol] 4.2 g/dL 3.5 - 5 g/dL [facility] ALP (Bld) [Catalytic activity/Vol] 59 U/L 38 - 126 U/L [facility] ALT [Catalytic activity/Vol] 16 U/L 0 - 34 U/L [facility] Comment on above: The ALT test is perf ormed by an updated assay method. Please note that the reference intervals have been changed and are now sex specific. AST [Catalytic activity/Vol] 22 U/L 15 - 46 U/L [facility] Bilirubin [Mass/Vol] 0.3 mg/dL 0.2 - 1 .3 mg/dL [facility] Bilirubin.indirect [Mass/Vol] 0.0 mg/dL 0 - 0.3 mg/dL [facility] Protein [Mass/Vol] 7.2 g/dL 6.3 - 8.2 g/dL [facility] Magnesiumon 11-25-2021 Magnesium [Mass/Vol] 2.0 mg/dL Normal 1.6-2.3 [facility] Comment on above: Performed By: #### T SH5, BMP3, MG3, HEMDF, TROPN, LFT3, BNP3 #### [address] [address] Magnesium [Mass/Vol] 2.0 mg/dL 1.6 - 2 .3 mg/dL [facility] No Panel Informationon 11-25 Radiology Study observation (narrative) [facility] Work Phone: Test Performed by [facility], [address] [place] [id number] [place] [address] LAB [facility] TSHon 11-25-2021 TSH Qn 1.287 u[IU]/mL 0.465 - 4.68 u[IU]/mL [facility] Test Performed by [id number] [place] [address] [facility] Thyroid Stim. Hormoneon 11-16 Thyroid Stim. Hormone 1.287 u[IU]/mL Normal 0.465-4.68 0 [facility] Comment on above: Performed By: #### T SH5, BMP3, MG3, HEMDF, TROPN, LFT3, BNP3 #### [address] [address] Troponin Ion 11-25-2021 Troponin I.cardiac [Mass/Vol] ng/mL Normal 0.000-0.034 [facility] Comment on above: Result Comment: . Performed By: #### T SH5, BMP3, MG3, HEMDF, TROPN, LFT3, BNP3 #### [address] [address] Troponin x1on 11-25-2021 Troponin I.cardiac [Mass/Vol] ng/mL 0 - 0.034 ng/mL [facility] Comment on above: . Test Performed by [id number] [place] [address] [facility] XR CHEST PORTABLEon 11-26-19 Patient Name: MICHELLE MAURICIO Diagnostic Radiology ACCESSION EXAM DATE/TIME PROCEDURE ORDERING PROVIDER [id number] 11/25/2021 22:35 EDT CR Chest Portable [id number] FAUSTO JOYCE CPT code 50779 Reason For Exam (CR Chest Portable) pain Report SINGLE FRONTAL VIEW OF THE CHEST CLINICAL INDICATION: pain TECHNIQUE: Single frontal view of the chest COMPARISON: 09/04/2014 FINDINGS: Lungs show no significant consolidation. No pleural effusion or pneumothorax. No vascular congestion. Heart size normal. IMPRESSION: 1. No acute finding. Report Dictated on Workstation: [id number] --- Final --- Dictated: 11/25/2021 10:35 pm Dictating Physician: MD HUNTER JOHN R Signed Date and Time: 11/25/2021 10:35 pm Signed by: MD HUNTER JOHN R Transcribed Date and Time: 11/25/2021 10:35 [facility] Gato Hunter MD - 11/25/2021 Patient Name: MICHELLE MAURICIO Diagnostic Radiology ACCESSION EXAM DATE/TIME PROCEDURE ORDERING PROVIDER [id number] 11/25/2021 22:35 EDT CR Chest Portable [id number] FAUSTO JOYCE CPT code 32354 Reason For Exam (CR Chest Portable) pain Report SINGLE FRONTAL VIEW OF THE CHEST CLINICAL INDICATION: pain TECHNIQUE: Single frontal view of the chest COMPARISON: 09/04/2014 FINDINGS: Lungs show no significant consolidation. No pleural effusion or pneumothorax. No vascular congestion. Heart size normal. IMPRESSION: 1. No acute finding. Report Dictated on Workstation: [id number] --- Final --- Dictated: 11/25/2021 10:35 pm Dictating Physician: MD HUNTER JOHN R Signed Date and Time: 11/25/2021 10:35 pm Signed by: MD HUNTER JOHN R Transcribed Date and Time: 11/25/2021 10:35 [facility] Work Phone: XR CHEST PORTABLEOrdered By: Gato Hunter on 11-25-2021 [facility] Work Phone: Absolute lymphocyte counton 11-21-2021 Lymphocytes Auto (Unsp spec) [#/Vol] 2.91 10*3/uL 0.83-4.[address] [facility] Work Phone: Basophil percentageon 2021 Basophils/100 WBC (Bld) 0.6 % 0-1 [facility] Work Phone: Chloride [Moles/Vol] 111 mmol/L 98-107 [facility] Work Phone: Eosinophils/100 WBC (Bld) 3.1 % 0-[address] [facility] Work Phone: Glucose [Mass/Vol] 87 mg/dL 74-106 [facility] Work Phone: Neutrophils (Bld) [#/Vol] 6.5 10*3/uL 2.0-7.[address] [facility] Work Phone: Neutrophils/100 WBC (Bld) 62.2 % 47-[address] [facility] Work Phone: Potassium [Moles/Vol] 3.8 mmol/L 3.5-5.1 [facility] Work Phone: Sodium [Moles/Vol] 141 mmol/L 136-145 [facility] Work Phone: [phone] WBC (Bld) [#/Vol] 10.4 10*3/uL 4.4-11.0 [facility] Work Phone: Blood erythrocytes count (nu mber/volume)on 11-21-2021 RBC (Bld) [#/Vol] 4.85 10*6/uL 4.2-5.4 [facility] Work Phone: Blood hemoglobin measurement (mass/volume)on 11-21-2021 Hemoglobin (Bld) [Mass/Vol] 13.9 g/dL 12.0-15.[address] [facility] Work Phone: Blood lymphocytes/100 leukoc yteson 11-21-2021 Lymphocytes/100 WBC (Bld) 27.9 % 19-[address] [facility] Work Phone: Blood monocytes/100 leukocyt eson 11-21-2021 Monocytes/100 WBC (Bld) 5.8 % 0-10 [facility] Work Phone: Blood platelet mean volumeon 11-21-2021 Platelet mean volume (Bld) [Entitic vol] 9.9 fL 6.2-12.[address] [facility] Work Phone: Determination of erythrocyte mean corpuscular volume (MCV)on 11-21-2021 MCV (RBC) [Entitic vol] 85.4 fL 81-99 [facility] Work Phone: Erythrocyte sedimentation ra juana 11-21-2021 ESR (Bld) [Velocity] 3 mm/h 0-30 [facility] Work Phone: Hematocrit Auto (Bld) [Volum e fraction]on 11-21-2021 Hematocrit (Bld) [Volume fraction] 41.4 % 37-[address] [facility] Work Phone: Laboratory - Chemistry and C hemistry - challengeon 11-21-2021 CO2 [Moles/Vol] 23.0 mmol/L 21.0-32.[address] [facility] Work Phone: Natriuretic peptide B (Bld) [Mass/Vol] 18.7 pg/mL 0-[address] [facility] Work Phone: Urea nitrogen/Creatinine [Mass ratio] 28.6 mg/mg 10-[address] [facility] Work Phone: Laboratory - Hematology and Cell countson 11-21-2021 Erythrocyte distribution width (RBC) [Entitic vol] 40.7 fL 35.1-43.[address] [facility] Work Phone: Erythrocyte distribution width (RBC) [Ratio] 13.2 % 11.6-14.[address] [facility] Work Phone: Immature granulocytes/100 WBC (Bld) 0.400 % 0.0-0.[address] [facility] Work Phone: Comment on above: IG% - Immature Granu locytes (promyelocytes, myelocytes and metamyelocytes) > 1% indicates that a LEFT SHIFT is Present. MCH (RBC) [Entitic mass] 28.7 pg 27.0-32.[address] [facility] Work Phone: Nucleated RBC/100 WBC (Bld) [Ratio] 0 % 0-[address] [facility] Work Phone: MCHC Auto (RBC) [Mass/Vol]on 11-21-2021 MCHC (RBC) [Mass/Vol] 33.6 g/dL 32-36 [facility] Work Phone: No Panel Informationon 11-21 D-Dimer Quantitative (PE/DVT) 0.37 FEU/ug/m 0.27-0.[address] [facility] Work Phone: Comment on above: NORMAL D-Dimer level (<0.50) indicates no DVT or PE. Estimated GFR (MDRD) Amer 146 mL/min >[address] [facility] Work Phone: Comment on above: GFR Calc Estimated GFR (MDRD) Non-Af Amer 121 mL/min >[address] [facility] Work Phone: Comment on above: Non- GFR Calc Platelets bldon 11-21-2021 Platelets (Bld) [#/Vol] 217 10*3/uL 150-[address] [facility] Work Phone: Serum or plasma C reactive p rotein measurement (mass/volume)on 11-21-2021 CRP [Mass/Vol] mg/L 0.0-3.[address] [facility] Work Phone: Comment on above: C-Reactive Protein ( CRP) provides useful information for thediagnosis, therapy and monitoring of inflammatory processesand associated diseases. For the evaluation of Relative Riskfor Cardiovascular Disease, a High Sensitivity CRP (HSCRP)should be ordered. Serum or plasma calcium ubaldo urement (mass/volume)on 11-21-2021 Calcium [Mass/Vol] 9.2 mg/dL 8.5-10.1 [facility] Work Phone: Serum or plasma creatinine m easurement (mass/volume)on 11-21-2021 Creatinine [Mass/Vol] 0.60 mg/dL 0.55-1.02 [facility] Work Phone: Comment on above: The validity of the calculated GFR & GFRAA in patients over 70 years has not been determined. Clinical correlation is essential. Serum or plasma urea nitroge n measurement (mass/volume)on 11-21-2021 Urea nitrogen [Mass/Vol] 17 mg/dL 7-[address] [facility] Work Phone: Thin prep Papanicolaou smear with manual screeningon 11-21-2021 Thin prep Papanicolaou smear with manual screening 7 5-[address] [facility] Work Phone: Absolute lymphocyte counton 10-25-2021 Lymphocytes Auto (Unsp spec) [#/Vol] 2.58 10*3/uL 0.83-4.[address] [facility] Work Phone: Basophil percentageon 2021 Basophils/100 WBC (Bld) 0.6 % 0-1 [facility] Work Phone: Bilirubin [Mass/Vol] 0.50 mg/dL 0.20-1.00 [facility] Work Phone: Comment on above: For patients on eltr ombopag therapy, use of Dimension [place] TBIL is not recommended. Chloride [Moles/Vol] 107 mmol/L 98-107 [facility] Work Phone: Cholesterol [Mass/Vol] 152 mg/dL <200 [facility] Work Phone: Comment on above: <200 mg/dL Desirable 200-240 mg/dL Borderline >240 mg/dL High Risk Eosinophils/100 WBC (Bld) 6.1 % 0-[address] [facility] Work Phone: Glucose [Mass/Vol] 80 mg/dL 74-106 [facility] Work Phone: Neutrophils (Bld) [#/Vol] 3.3 10*3/uL 2.0-7.[address] [facility] Work Phone: Neutrophils/100 WBC (Bld) 48.9 % 47-[address] [facility] Work Phone: Potassium [Moles/Vol] 4.4 mmol/L 3.5-5.1 [facility] Work Phone: Protein [Mass/Vol] 7.6 g/dL 6.4-8.2 [facility] Work Phone: [phone] Sodium [Moles/Vol] 138 mmol/L 136-145 [facility] Work Phone: Triglyceride [Mass/Vol] 33 mg/dL <199 [facility] Work Phone: Comment on above: The drugs N-Acetylcy steine and Metamizole may falsely depress this assay.Serum Triglycerides Reference Interval Normal <150 mg/dL Borderline high 150 - 199 mg/dL High 200 - 499 mg/dL Very High > or = 500 mg/dL WBC (Bld) [#/Vol] 6.8 10*3/uL 4.4-11.0 [facility] Work Phone: Blood erythrocytes count (nu mber/volume)on 10-25-2021 RBC (Bld) [#/Vol] 4.91 10*6/uL 4.2-5.4 [facility] Work Phone: Blood hemoglobin measurement (mass/volume)on 10-25-2021 Hemoglobin (Bld) [Mass/Vol] 14.0 g/dL 12.0-15.[address] [facility] Work Phone: Blood lymphocytes/100 leukoc yteson 10-25-2021 Lymphocytes/100 WBC (Bld) 38.2 % 19-[address] [facility] Work Phone: Blood monocytes/100 leukocyt eson 10-25-2021 Monocytes/100 WBC (Bld) 5.9 % 0-10 [facility] Work Phone: Blood platelet mean volumeon 10-25-2021 Platelet mean volume (Bld) [Entitic vol] 10.7 fL 6.2-12.[address] [facility] Work Phone: Determination of erythrocyte mean corpuscular volume (MCV)on 10-25-2021 MCV (RBC) [Entitic vol] 86.4 fL 81-99 [facility] Work Phone: Hematocrit Auto (Bld) [Volum e fraction]on 10-25-2021 Hematocrit (Bld) [Volume fraction] 42.4 % 37-[address] [facility] Work Phone: Laboratory - Chemistry and C hemistry - challengeon 10-25-2021 ALP [Catalytic activity/Vol] 72 U/L 45-[address] [facility] Work Phone: ALT [Catalytic activity/Vol] 24 U/L 13-[address] [facility] Work Phone: CO2 [Moles/Vol] 25.0 mmol/L 21.0-32.[address] [facility] Work Phone: Cobalamin (Vitamin B12) [Mass/Vol] 438 pg/mL 211-[address] [facility] Work Phone: Free T4 [Mass/Vol] 1.25 ng/dL 0.76-1.46 [facility] Work Phone: Globulin (S) [Mass/Vol] 3.8 g/dL 2.2-4.2 [facility] Work Phone: Urea nitrogen/Creatinine [Mass ratio] 18.8 mg/mg 10-[address] [facility] Work Phone: Laboratory - Hematology and Cell countson 10-25-2021 Erythrocyte distribution width (RBC) [Entitic vol] 41.1 fL 35.1-43.[address] [facility] Work Phone: Erythrocyte distribution width (RBC) [Ratio] 13.2 % 11.6-14.[address] [facility] Work Phone: Immature granulocytes/100 WBC (Bld) 0.300 % 0.0-0.[address] [facility] Work Phone: Comment on above: IG% - Immature Granu locytes (promyelocytes, myelocytes and metamyelocytes) > 1% indicates that a LEFT SHIFT is Present. MCH (RBC) [Entitic mass] 28.5 pg 27.0-32.[address] [facility] Work Phone: Nucleated RBC/100 WBC (Bld) [Ratio] 0 % 0-[address] [facility] Work Phone: MCHC Auto (RBC) [Mass/Vol]on 10-25-2021 MCHC (RBC) [Mass/Vol] 33.0 g/dL 32-36 [facility] Work Phone: No Panel Informationon 10-25 Estimated GFR (MDRD) Amer 135 mL/min >[address] [facility] Work Phone: Comment on above: GFR Calc Estimated GFR (MDRD) Non-Af Amer 111 mL/min >[address] [facility] Work Phone: Comment on above: Non- GFR Calc Thyroid Stimulating Hormone (TSH) 1.51 uIU/mL 0.358-3.[address] [facility] Work Phone: Platelets bldon 10-25-2021 Platelets (Bld) [#/Vol] 196 10*3/uL 150-[address] [facility] Work Phone: Serum or plasma albumin ubaldo urement (mass/volume)on 10-25-2021 Albumin [Mass/Vol] 3.8 g/dL 3.2-5.0 [facility] Work Phone: Serum or plasma albumin/glob ulin mass ratioon 10-25-2021 Albumin/Globulin [Mass ratio] 1.0 {ratio} 0.9-2.[address] [facility] Work Phone: Serum or plasma calcitriol m easurement (mass/volume)on 10-25-2021 1,25-dihydroxyvitamin D3 [Mass/Vol] 60.5 pg/mL 24.8-81.[address] [facility] Work Phone: Comment on above: Please note refere nce interval changePerformed at: [facility] [id number] Director: Hank Schumacher MD, Phone: [phone] Serum or plasma calcium ubaldo urement (mass/volume)on 10-25-2021 Calcium [Mass/Vol] 9.2 mg/dL 8.5-10.1 [facility] Work Phone: Serum or plasma cholesterol in HDL measurement (mass/volume)on 10-25-2021 Cholesterol in HDL [Mass/Vol] 83 mg/dL >[address] [facility] Work Phone: Comment on above: The drugs N-Acetylcy steine and Metamizole may falsely depress this assay. Reference Range HDL <40 mg/dL Low HDL Cholesterol HDL >or= 60 mg/dL High HDL Cholesterol Serum or plasma cholesterol in VLDL measurement (mass/volume)on 10-25-2021 Cholesterol in VLDL [Mass/Vol] 7 mg/dL 5-[address] [facility] Work Phone: Serum or plasma creatinine m easurement (mass/volume)on 10-25-2021 Creatinine [Mass/Vol] 0.64 mg/dL 0.55-1.02 [facility] Work Phone: Comment on above: The validity of the calculated GFR & GFRAA in patients over 70 years has not been determined. Clinical correlation is essential. Serum or plasma low density lipoprotein (LDL) cholesterol measurement (mass/volume)on 10-25-2021 Cholesterol in LDL [Mass/Vol] 62 mg/dL 0-[address] [facility] Work Phone: Serum or plasma urea nitroge n measurement (mass/volume)on 10-25-2021 Urea nitrogen [Mass/Vol] 12 mg/dL 7-[address] [facility] Work Phone: Thin prep Papanicolaou smear with manual screeningon 10-25-2021 Thin prep Papanicolaou smear with manual screening 15 U/L 15-[address] [facility] Work Phone: Thin prep Papanicolaou smear with manual screening 6 5-[address] [facility] Work Phone: CT LIVER W IVCONon 2 [facility] Basophil percentageon 2021 Amylase [Catalytic activity/Vol] 52 U/L 25-[address] [facility] Work Phone: Bilirubin [Mass/Vol] 0.20 mg/dL 0.20-1.00 [facility] Work Phone: Comment on above: For patients on eltr ombopag therapy, use of Dimension [place] TBIL is not recommended. Chloride [Moles/Vol] 113 mmol/L 98-107 [facility] Work Phone: Glucose [Mass/Vol] 91 mg/dL 74-106 [facility] Work Phone: Potassium [Moles/Vol] 4.3 mmol/L 3.5-5.1 [facility]: Protein [Mass/Vol] 7.2 g/dL 6.4-8.2 [facility]: Sodium [Moles/Vol] 142 mmol/L 136-145 [facility] Work Phone: WBC (Bld) [#/Vol] 6.8 10*3/uL 4.4-11.0 [facility] Work Phone: Blood erythrocytes count (nu mber/volume)on 06-11-2021 RBC (Bld) [#/Vol] 4.97 10*6/uL 4.2-5.4 [facility]: Blood hemoglobin measurement (mass/volume)on 06-11-2021 Hemoglobin (Bld) [Mass/Vol] 14.3 g/dL 12.0-15.[address] [facility] Work Phone: Blood platelet mean volumeon 06-11-2021 Platelet mean volume (Bld) [Entitic vol] 9.9 fL 6.2-12.[address] [facility] Work Phone: Determination of erythrocyte mean corpuscular volume (MCV)on 06-11-2021 MCV (RBC) [Entitic vol] 85.9 fL 81-99 [facility] Work Phone: Hematocrit Auto (Bld) [Volum e fraction]on 06-11-2021 Hematocrit (Bld) [Volume fraction] 42.7 % 37-[address] [facility] Work Phone: Laboratory - Chemistry and C hemistry - challengeon 06-11-2021 ALP [Catalytic activity/Vol] 98 U/L 45-[address] [facility] Work Phone: ALT [Catalytic activity/Vol] 40 U/L 13-[address] [facility] Work Phone: CO2 [Moles/Vol] 24.0 mmol/L 21.0-32.[address] [facility] Work Phone: Globulin (S) [Mass/Vol] 3.9 g/dL 2.2-4.2 [facility] Work Phone: Lipase [Catalytic activity/Vol] 317 U/L 73-[address] [facility] Work Phone: Urea nitrogen/Creatinine [Mass ratio] 21.3 mg/mg 10-[address] [facility] Work Phone: Laboratory - Hematology and Cell countson 06-11-2021 Erythrocyte distribution width (RBC) [Entitic vol] 41.7 fL 35.1-43.[address] [facility] Work Phone: Erythrocyte distribution width (RBC) [Ratio] 13.3 % 11.6-14.[address] [facility] Work Phone: MCH (RBC) [Entitic mass] 28.8 pg 27.0-32.[address] [facility] Work Phone: MCHC Auto (RBC) [Mass/Vol]on 06-11-2021 MCHC (RBC) [Mass/Vol] 33.5 g/dL 32-36 [facility] Work Phone: No Panel Informationon 06-11 Estimated GFR (MDRD) Amer 112 mL/min >[address] [facility] Work Phone: Comment on above: GFR Calc Estimated GFR (MDRD) Non-Af Amer 93 mL/min >[address] [facility] Work Phone: Comment on above: Non- GFR Calc Platelets bldon 06-11-2021 Platelets (Bld) [#/Vol] 242 10*3/uL 150-[address] [facility] Work Phone: Serum or plasma albumin ubaldo urement (mass/volume)on 06-11-2021 Albumin [Mass/Vol] 3.3 g/dL 3.2-5.0 [facility] Work Phone: Serum or plasma albumin/glob ulin mass ratioon 06-11-2021 Albumin/Globulin [Mass ratio] 0.8 {ratio} 0.9-2.[address] [facility] Work Phone: [phone] Serum or plasma calcium ubaldo urement (mass/volume)on 06-11-2021 Calcium [Mass/Vol] 8.8 mg/dL 8.5-10.1 [facility] Work Phone: Serum or plasma creatinine m easurement (mass/volume)on 06-11-2021 Creatinine [Mass/Vol] 0.75 mg/dL 0.55-1.02 [facility] Work Phone: Comment on above: The validity of the calculated GFR & GFRAA in patients over 70 years has not been determined. Clinical correlation is essential. Serum or plasma urea nitroge n measurement (mass/volume)on 06-11-2021 Urea nitrogen [Mass/Vol] 16 mg/dL 7-[address] [facility] Work Phone: Thin prep Papanicolaou smear with manual screeningon 06-11-2021 Thin prep Papanicolaou smear with manual screening 24 U/L 15-[address] [facility] Work Phone: Thin prep Papanicolaou smear with manual screening 5 5-[address] [facility] Work Phone: Basophil percentageon 2021 Bilirubin [Mass/Vol] 0.40 mg/dL 0.20-1.00 [facility] Work Phone: Comment on above: For patients on eltr ombopag therapy, use of [place] TBIL is not recommended. Chloride [Moles/Vol] 109 mmol/L 98-107 [facility] Work Phone: Glucose [Mass/Vol] 120 mg/dL 74-106 [facility] Work Phone: Comment on above: Fasting Glucose resu lt from 100 to 125 mg/dL suggests IMPAIRED HOMEOSTASIS per A.D.A. criteria. Potassium [Moles/Vol] 4.0 mmol/L 3.5-5.1 [facility] Work Phone: Protein [Mass/Vol] 7.6 g/dL 6.4-8.2 [facility] Work Phone: Sodium [Moles/Vol] 138 mmol/L 136-145 [facility] Work Phone: WBC (Bld) [#/Vol] 8.9 10*3/uL 4.4-11.0 [facility] Work Phone: Blood erythrocytes count (nu mber/volume)on 05-23-2021 RBC (Bld) [#/Vol] 4.84 10*6/uL 4.2-5.4 [facility] Work Phone: Blood hemoglobin measurement (mass/volume)on 05-23-2021 Hemoglobin (Bld) [Mass/Vol] 14.5 g/dL 12.0-15.[address] [facility] Work Phone: Blood platelet mean volumeon 05-23-2021 Platelet mean volume (Bld) [Entitic vol] 9.7 fL 6.2-12.[address] [facility] Work Phone: Determination of erythrocyte mean corpuscular volume (MCV)on 05-23-2021 MCV (RBC) [Entitic vol] 86.6 fL 81-99 [facility] Work Phone: Hematocrit Auto (Bld) [Volum e fraction]on 05-23-2021 Hematocrit (Bld) [Volume fraction] 41.9 % 37-[address] [facility] Work Phone: Laboratory - Chemistry and C hemistry - challengeon 05-23-2021 ALP [Catalytic activity/Vol] 136 U/L 45-[address] [facility] Work Phone: ALT [Catalytic activity/Vol] 41 U/L 13-[address] [facility] Work Phone: CO2 [Moles/Vol] 21.0 mmol/L 21.0-32.[address] [facility] Work Phone: Globulin (S) [Mass/Vol] 4.6 g/dL 2.2-4.2 [facility] Work Phone: Urea nitrogen/Creatinine [Mass ratio] 18.0 mg/mg 10-[address] [facility] Work Phone: Laboratory - Hematology and Cell countson 05-23-2021 Erythrocyte distribution width (RBC) [Entitic vol] 43.5 fL 35.1-43.[address] [facility] Work Phone: Erythrocyte distribution width (RBC) [Ratio] 13.8 % 11.6-14.[address] [facility] Work Phone: MCH (RBC) [Entitic mass] 30.0 pg 27.0-32.[address] [facility] Work Phone: MCHC Auto (RBC) [Mass/Vol]on 05-23-2021 MCHC (RBC) [Mass/Vol] 34.6 g/dL 32-36 [facility] Work Phone: No Panel Informationon 05-23 Estimated GFR (MDRD) Amer 108 mL/min >[address] [facility] Work Phone: Comment on above: GFR Calc Estimated GFR (MDRD) Non-Af Amer 89 mL/min >[address] [facility] Work Phone: Comment on above: Non- GFR Calc Platelets bldon 05-23-2021 Platelets (Bld) [#/Vol] 324 10*3/uL 150-[address] [facility] Work Phone: Serum or plasma albumin ubaldo urement (mass/volume)on 05-23-2021 Albumin [Mass/Vol] 3.0 g/dL 3.2-5.0 [facility] Work Phone: Serum or plasma albumin/glob ulin mass ratioon 05-23-2021 Albumin/Globulin [Mass ratio] 0.7 {ratio} 0.9-2.[address] [facility] Work Phone: Serum or plasma calcium ubaldo urement (mass/volume)on 05-23-2021 Calcium [Mass/Vol] 9.3 mg/dL 8.5-10.1 [facility] Work Phone: Serum or plasma creatinine m easurement (mass/volume)on 05-23-2021 Creatinine [Mass/Vol] 0.78 mg/dL 0.55-1.02 [facility] Work Phone: [phone] Comment on above: The validity of the calculated GFR & GFRAA in patients over 70 years has not been determined. Clinical correlation is essential. Serum or plasma urea nitroge n measurement (mass/volume)on 05-23-2021 Urea nitrogen [Mass/Vol] 14 mg/dL 7-[address] [facility] Work Phone: Thin prep Papanicolaou smear with manual screeningon 05-23-2021 Thin prep Papanicolaou smear with manual screening 25 U/L 15-[address] [facility] Work Phone: Thin prep Papanicolaou smear with manual screening 8 5-[address] [facility] Work Phone: Thin prep Papanicolaou smear with manual screening 229 U/L 84-[address] [facility] Work Phone: [phone] Absolute lymphocyte counton 05-17-2021 Lymphocytes Auto (Unsp spec) [#/Vol] 2.56 10*3/uL 0.83-4.[address] [facility] Work Phone: Basophil percentageon 2021 Basophils/100 WBC (Bld) 0.6 % 0-1 [facility] Work Phone: [phone] Eosinophils/100 WBC (Bld) 4.5 % 0-[address] [facility] Work Phone: [phone] Neutrophils (Bld) [#/Vol] 5.7 10*3/uL 2.0-7.[address] [facility] Work Phone: Neutrophils/100 WBC (Bld) 61.5 % 47-[address] [facility] Work Phone: WBC (Bld) [#/Vol] 9.3 10*3/uL 4.4-11.0 [facility] Work Phone: [phone] Blood erythrocytes count (nu mber/volume)on 05-17-2021 RBC (Bld) [#/Vol] 4.30 10*6/uL 4.2-5.4 [facility] Work Phone: [phone] Blood hemoglobin measurement (mass/volume)on 05-17-2021 Hemoglobin (Bld) [Mass/Vol] 12.6 g/dL 12.0-15.[address] [facility] Work Phone: Blood lymphocytes/100 leukoc yteson 05-17-2021 Lymphocytes/100 WBC (Bld) 27.4 % 19-[address] [facility] Work Phone: Blood monocytes/100 leukocyt eson 05-17-2021 Monocytes/100 WBC (Bld) 4.9 % 0-10 [facility] Work Phone: Blood platelet mean volumeon 05-17-2021 Platelet mean volume (Bld) [Entitic vol] 10.5 fL 6.2-12.[address] [facility] Work Phone: Determination of erythrocyte mean corpuscular volume (MCV)on 05-17-2021 MCV (RBC) [Entitic vol] 84.2 fL 81-99 [facility] Work Phone: Hematocrit Auto (Bld) [Volum e fraction]on 05-17-2021 Hematocrit (Bld) [Volume fraction] 36.2 % 37-[address] [facility] Work Phone: Laboratory - Hematology and Cell countson 05-17-2021 Erythrocyte distribution width (RBC) [Entitic vol] 42.1 fL 35.1-43.[address] [facility] Work Phone: Erythrocyte distribution width (RBC) [Ratio] 13.7 % 11.6-14.[address] [facility] Work Phone: Immature granulocytes/100 WBC (Bld) 1.100 % 0.0-0.[address] [facility] Work Phone: Comment on above: IG% - Immature Granu locytes (promyelocytes, myelocytes and metamyelocytes) > 1% indicates that a LEFT SHIFT is Present. MCH (RBC) [Entitic mass] 29.3 pg 27.0-32.[address] [facility] Work Phone: Nucleated RBC/100 WBC (Bld) [Ratio] 0 % 0-[address] [facility] Work Phone: [phone] MCHC Auto (RBC) [Mass/Vol]on 05-17-2021 MCHC (RBC) [Mass/Vol] 34.8 g/dL 32-36 [facility] Work Phone: No Panel Informationon 05-17 Vaginal Amniotic Fluid Detection Negative Negative [facility] Work Phone: Comment on above: Amniotic fluid not p resent indicates No Rupture of FetalMembranes at time of specimen collection. Platelets bldon 05-17-2021 Platelets (Bld) [#/Vol] 223 10*3/uL 150-[address] [facility] Work Phone: Absolute lymphocyte counton 05-11-2021 Lymphocytes Auto (Unsp spec) [#/Vol] 1.88 10*3/uL 0.83-4.[address] [facility] Work Phone: Basophil percentageon 2021 Basophils/100 WBC (Bld) 0.5 % 0-1 [facility] Work Phone: Eosinophils/100 WBC (Bld) 2.7 % 0-[address] [facility] Work Phone: Neutrophils (Bld) [#/Vol] 7.1 10*3/uL 2.0-7.[address] [facility] Work Phone: [phone] Neutrophils/100 WBC (Bld) 69.8 % 47-[address] [facility] Work Phone: WBC (Bld) [#/Vol] 10.2 10*3/uL 4.4-11.0 [facility] Work Phone: Blood erythrocytes count (nu mber/volume)on 05-11-2021 RBC (Bld) [#/Vol] 4.18 10*6/uL 4.2-5.4 [facility] Work Phone: Blood hemoglobin measurement (mass/volume)on 05-11-2021 Hemoglobin (Bld) [Mass/Vol] 12.4 g/dL 12.0-15.[address] [facility] Work Phone: Blood lymphocytes/100 leukoc yteson 05-11-2021 Lymphocytes/100 WBC (Bld) 18.4 % 19-[address] [facility] Work Phone: Blood monocytes/100 leukocyt eson 05-11-2021 Monocytes/100 WBC (Bld) 7.9 % 0-10 [facility] Work Phone: Blood platelet mean volumeon 05-11-2021 Platelet mean volume (Bld) [Entitic vol] 10.5 fL 6.2-12.[address] [facility] Work Phone: Determination of erythrocyte mean corpuscular volume (MCV)on 05-11-2021 MCV (RBC) [Entitic vol] 84.7 fL 81-99 [facility] Work Phone: Hematocrit Auto (Bld) [Volum e fraction]on 05-11-2021 Hematocrit (Bld) [Volume fraction] 35.4 % 37-[address] [facility] Work Phone: Laboratory - Hematology and Cell countson 05-11-2021 Erythrocyte distribution width (RBC) [Entitic vol] 41.6 fL 35.1-43.[address] [facility] Work Phone: Erythrocyte distribution width (RBC) [Ratio] 13.6 % 11.6-14.[address] [facility] Work Phone: Immature granulocytes/100 WBC (Bld) 0.700 % 0.0-0.[address] [facility] Work Phone: Comment on above: IG% - Immature Granu locytes (promyelocytes, myelocytes and metamyelocytes) > 1% indicates that a LEFT SHIFT is Present. MCH (RBC) [Entitic mass] 29.7 pg 27.0-32.[address] [facility] Work Phone: Nucleated RBC/100 WBC (Bld) [Ratio] 0 % 0-[address] [facility] Work Phone: MCHC Auto (RBC) [Mass/Vol]on 05-11-2021 MCHC (RBC) [Mass/Vol] 35.0 g/dL 32-36 [facility] Work Phone: Platelets bldon 05-11-2021 Platelets (Bld) [#/Vol] 201 10*3/uL 150-[address] [facility] Work Phone: Laboratory - Drug toxicology on 05-09-2021 Amphetamines Ql (U) Negative [facility] Work Phone: [phone] Benzodiazepines Ql (U) Negative [facility] Work Phone: Cannabinoids Screen Ql (U) Negative [facility] Work Phone: Cocaine Ql (U) Negative [facility] Work Phone: Opiates Ql (U) Negative [facility] Work Phone: No Panel Informationon 05-09 MDMA (Ecstasy) Screen Negative [facility] Work Phone: Urine Barbiturates Screen Positive [facility] Work Phone: Urine Drug Screen Comment [facility] Work Phone: Comment on above: CONFIRMATORY TESTING FOR ALL POSITIVE URINE DRUG SCREENRESULTS WILL ONLY BE SENT OUT UPON PHYSICIAN ORDER. VISTA Urine Drug Screen methods provide only preliminaryanalytical test results. A more specific alternate chemicalmethod must be used in order to obtain a confirmedanalytical result. Gas chromatography/mass spectrometery(GC/MS) is the preferred confirmatory method. Clinicalconsideration and professional judgement should be appliedto any drug of abuse test result, particularly whenpreliminary positive results are used. URINE TCA TESTING MUST BE ORDERED SEPARATELY. USE TESTMNEMONIC: [facility] Urine Methadone Screen Negative [facility] Work Phone: Urine phencyclidine (PCP) de tectionon 05-09-2021 Phencyclidine Ql (U) Negative [facility] Work Phone: Basophil percentageon 2021 Basophil percentage 0-5 SEEN /hpf [facility] Work Phone: WBC (Bld) [#/Vol] 9.4 10*3/uL 4.4-11.0 [facility] [facility] Work Phone: Bilirubin Test strip Ql (U)o n 04-30-2021 Bilirubin Ql (U) Negative Negative [facility] Work Phone: Blood erythrocytes count (nu mber/volume)on 04-30-2021 RBC (Bld) [#/Vol] 4.02 10*6/uL 4.2-5.4 [facility] Work Phone: Blood hemoglobin measurement (mass/volume)on 04-30-2021 Hemoglobin (Bld) [Mass/Vol] 12.1 g/dL 12.0-15.[address] [facility] Work Phone: Blood platelet mean volumeon 04-30-2021 Platelet mean volume (Bld) [Entitic vol] 10.2 fL 6.2-12.[address] [facility] Work Phone: Determination of erythrocyte mean corpuscular volume (MCV)on 04-30-2021 MCV (RBC) [Entitic vol] 85.1 fL 81-99 [facility] Work Phone: Hematocrit Auto (Bld) [Volum e fraction]on 04-30-2021 Hematocrit (Bld) [Volume fraction] 34.2 % 37-[address] [facility] Work Phone: Ketones Test strip Ql (U)on 04-30-2021 Ketones Ql (U) Negative Negative [facility] Work Phone: Laboratory - Chemistry and C hemistry - challengeon 04-30-2021 ALT [Catalytic activity/Vol] 13 U/L 13-[address] [facility] Work Phone: Laboratory - Hematology and Cell countson 04-30-2021 Erythrocyte distribution width (RBC) [Entitic vol] 41.0 fL 35.1-43.[address] [facility] Work Phone: Erythrocyte distribution width (RBC) [Ratio] 13.2 % 11.6-14.[address] [facility] Work Phone: MCH (RBC) [Entitic mass] 30.1 pg 27.0-32.[address] [facility] Work Phone: MCHC Auto (RBC) [Mass/Vol]on 04-30-2021 MCHC (RBC) [Mass/Vol] 35.4 g/dL 32-36 [facility] Work Phone: Mucus LM Ql (Urine sed)on Mucus Ql (Urine sed) 0 SEEN /hpf [facility] Work Phone: Nitrite Test strip Ql (U)on 04-30-2021 Nitrite Ql (U) Negative Negative [facility] Work Phone: No Panel Informationon 04-30 Estimated Creatinine Clearance Calc 135.27 ml/min [facility] Work Phone: Estimated GFR (MDRD) Amer 150 mL/min >[address] [facility] Work Phone: Comment on above: GFR Calc Estimated GFR (MDRD) Non-Af Amer 124 mL/min >[address] [facility] Work Phone: Comment on above: Non- GFR Calc Group B Streptococcus Culture Group B Beta Streptococcus is not isolated. [facility] Work Phone: Platelets bldon 04-30-2021 Platelets (Bld) [#/Vol] 210 10*3/uL 150-[address] [facility] Work Phone: Protein Test strip Ql (U)on 04-30-2021 Protein Ql (U) 15 mg/dl Negative [facility] Work Phone: Serum or plasma creatinine m easurement (mass/volume)on 04-30-2021 Creatinine [Mass/Vol] 0.58 mg/dL 0.55-1.02 [facility] Work Phone: Comment on above: The validity of the calculated GFR & GFRAA in patients over 70 years has not been determined. Clinical correlation is essential. Serum or plasma uric acid me asurement (mass/volume)on 04-30-2021 Urate [Mass/Vol] 4.6 mg/dL 2.6-6.[address] [facility] Work Phone: Comment on above: The drugs N-Acetylcy steine and Metamizole may falsely depress this assay. Squamous epithelial cells de tection in urine sediment by light microscopyon 04-30-2021 Epithelial cells.squamous LM Ql (Urine sed) 0-5 SEEN /hpf [facility] Work Phone: Thin prep Papanicolaou smear with manual screeningon 04-30-2021 Thin prep Papanicolaou smear with manual screening 12 U/L 15-[address] [facility] Work Phone: Urine blood detectionon 04-16 RBC Ql (U) Negative Negative [facility] Work Phone: RBC Ql (U) 0 SEEN /hpf [facility] Work Phone: Urine clarityon 04-30-2021 Clarity (U) Clear Clear [facility] Work Phone: Urine color determinationon 04-30-2021 Color (U) Yellow Yellow [facility] Work Phone: Urine creatinine measurement (mass/volume)on 04-30-2021 Creatinine (U) [Mass/Vol] 135.00 mg/dL NO RANGE EST. [facility] Work Phone: Urine glucose detectionon Glucose Ql (U) Normal mg/dl Normal [facility] Work Phone: Urine leukocyte esterase det ection by dipstickon 04-30-2021 Leukocyte esterase Test strip Ql (U) 100 /ul Negative [facility] Work Phone: Urine pHon 04-30-2021 pH (U) 7.0 [pH] [facility] Work Phone: Urine protein measurement (m ass/volume)on 04-30-2021 Protein (U) [Mass/Vol] 18.2 mg/dL 0.0-11.8 [facility] Work Phone: Urine protein/creatinine mas s ratioon 04-30-2021 Protein/Creatinine (U) [Mass ratio] 135 mg/g CRE 0-[address] [facility] Work Phone: Urine sediment bacteria coun t by microscopy (number/high power field)on 04-30-2021 Bacteria LM.HPF (Urine sed) [#/Area] 1 /[HPF] None Seen [facility] Work Phone: Urine specific gravity measu rementon 04-30-2021 Specific gravity (U) [Rel density] 1.[address] [facility] Work Phone: Urobilinogen Auto test strip Ql (U)on 04-30-2021 Urobilinogen Ql (U) Normal mg/dl Normal [facility] Work Phone: Basophil percentageon 2021 Bilirubin [Mass/Vol] 0.20 mg/dL 0.20-1.00 [facility] Work Phone: Comment on above: For patients on eltr ombopag therapy, use of [place] TBIL is not recommended. Chloride [Moles/Vol] 107 mmol/L 98-107 [facility] Work Phone: Glucose [Mass/Vol] 104 mg/dL 74-106 [facility] Work Phone: Comment on above: Fasting Glucose resu lt from 100 to 125 mg/dL suggests IMPAIRED HOMEOSTASIS per A.D.A. criteria. Potassium [Moles/Vol] 3.7 mmol/L 3.5-5.1 [facility] Work Phone: Protein [Mass/Vol] 6.8 g/dL 6.4-8.2 [facility] Work Phone: Sodium [Moles/Vol] 138 mmol/L 136-145 [facility] Work Phone: WBC (Bld) [#/Vol] 10.5 10*3/uL 4.4-11.0 [facility] Work Phone: Blood erythrocytes count (nu mber/volume)on 04-25-2021 RBC (Bld) [#/Vol] 4.02 10*6/uL 4.2-5.4 [facility] Work Phone: Blood hemoglobin measurement (mass/volume)on 04-25-2021 Hemoglobin (Bld) [Mass/Vol] 11.8 g/dL 12.0-15.[address] [facility] Work Phone: Blood platelet mean volumeon 04-25-2021 Platelet mean volume (Bld) [Entitic vol] 10.6 fL 6.2-12.[address] [facility] Work Phone: Culture, urineon 04-25-2021 Bacteria identified Cx Nom (U) Positive [facility] Work Phone: Determination of erythrocyte mean corpuscular volume (MCV)on 04-25-2021 MCV (RBC) [Entitic vol] 86.1 fL 81-99 [facility] Work Phone: Hematocrit Auto (Bld) [Volum e fraction]on 04-25-2021 Hematocrit (Bld) [Volume fraction] 34.6 % 37-[address] [facility] Work Phone: Laboratory - Chemistry and C hemistry - challengeon 04-25-2021 ALP [Catalytic activity/Vol] 140 U/L 45-[address] [facility] Work Phone: ALT [Catalytic activity/Vol] 14 U/L 13-[address] [facility] Work Phone: CO2 [Moles/Vol] 23.0 mmol/L 21.0-32.[address] [facility] Work Phone: Globulin (S) [Mass/Vol] 4.1 g/dL 2.2-4.2 [facility] Work Phone: Urea nitrogen/Creatinine [Mass ratio] 14.4 mg/mg 10-[address] [facility] Work Phone: Laboratory - Hematology and Cell countson 04-25-2021 Erythrocyte distribution width (RBC) [Entitic vol] 40.7 fL 35.1-43.[address] [facility] Work Phone: Erythrocyte distribution width (RBC) [Ratio] 13.2 % 11.6-14.[address] [facility] Work Phone: MCH (RBC) [Entitic mass] 29.4 pg 27.0-32.[address] [facility] Work Phone: MCHC Auto (RBC) [Mass/Vol]on 04-25-2021 MCHC (RBC) [Mass/Vol] 34.1 g/dL 32-36 [facility] Work Phone: No Panel Informationon 04-25 Estimated GFR (MDRD) Amer 159 mL/min >[address] [facility] Work Phone: Comment on above: GFR Calc Estimated GFR (MDRD) Non-Af Amer 131 mL/min >[address] [facility] Work Phone: Comment on above: Non- GFR Calc Platelets bldon 04-25-2021 Platelets (Bld) [#/Vol] 214 10*3/uL 150-[address] [facility] Work Phone: Serum or plasma albumin ubaldo urement (mass/volume)on 04-25-2021 Albumin [Mass/Vol] 2.7 g/dL 3.2-5.0 [facility] Work Phone: Serum or plasma albumin/glob ulin mass ratioon 04-25-2021 Albumin/Globulin [Mass ratio] 0.7 {ratio} 0.9-2.[address] [facility] Work Phone: Serum or plasma calcium ubaldo urement (mass/volume)on 04-25-2021 Calcium [Mass/Vol] 8.4 mg/dL 8.5-10.1 [facility] Work Phone: Serum or plasma creatinine m easurement (mass/volume)on 04-25-2021 Creatinine [Mass/Vol] 0.56 mg/dL 0.55-1.02 [facility] Work Phone: Comment on above: The validity of the calculated GFR & GFRAA in patients over 70 years has not been determined. Clinical correlation is essential. Serum or plasma urea nitroge n measurement (mass/volume)on 04-25-2021 Urea nitrogen [Mass/Vol] 8 mg/dL 7-[address] [facility] Work Phone: Thin prep Papanicolaou smear with manual screeningon 04-25-2021 Thin prep Papanicolaou smear with manual screening 11 U/L 15-[address] [facility] Work Phone: Thin prep Papanicolaou smear with manual screening 8 5-[address] [facility] Work Phone: Thin prep Papanicolaou smear with manual screening 126 U/L 84-[address] [facility] Work Phone: Urine creatinine measurement (mass/volume)on 04-25-2021 Creatinine (U) [Mass/Vol] 46.40 mg/dL NO RANGE EST. [facility] Work Phone: Urine protein measurement (m ass/volume)on 04-25-2021 Protein (U) [Mass/Vol] 11.0 mg/dL 0.0-11.8 [facility] Work Phone: Urine protein/creatinine mas s ratioon 04-25-2021 Protein/Creatinine (U) [Mass ratio] 237 mg/g CRE 0-[address] [facility] Work Phone: Basophil percentageon 2021 Bilirubin [Mass/Vol] 0.30 mg/dL 0.20-1.00 [facility] Work Phone: Comment on above: For patients on eltr ombopag therapy, use of [place] TBIL is not recommended. Chloride [Moles/Vol] 109 mmol/L 98-107 [facility] Work Phone: Glucose [Mass/Vol] 83 mg/dL 74-106 [facility] Work Phone: Potassium [Moles/Vol] 3.9 mmol/L 3.5-5.1 [facility] Work Phone: Protein [Mass/Vol] 6.9 g/dL 6.4-8.2 [facility] Work Phone: Sodium [Moles/Vol] 139 mmol/L 136-145 [facility] Work Phone: [phone] WBC (Bld) [#/Vol] 11.2 10*3/uL 4.4-11.0 [facility] Work Phone: Blood erythrocytes count (nu mber/volume)on 04-19-2021 RBC (Bld) [#/Vol] 4.14 10*6/uL 4.2-5.4 [facility] Work Phone: Blood hemoglobin measurement (mass/volume)on 04-19-2021 Hemoglobin (Bld) [Mass/Vol] 12.3 g/dL 12.0-15.[address] [facility] Work Phone: Blood platelet mean volumeon 04-19-2021 Platelet mean volume (Bld) [Entitic vol] 9.9 fL 6.2-12.[address] [facility] Work Phone: Determination of erythrocyte mean corpuscular volume (MCV)on 04-19-2021 MCV (RBC) [Entitic vol] 86.0 fL 81-99 [facility] Work Phone: Hematocrit Auto (Bld) [Volum e fraction]on 04-19-2021 Hematocrit (Bld) [Volume fraction] 35.6 % 37-[address] [facility] Work Phone: Laboratory - Chemistry and C hemistry - challengeon 04-19-2021 ALP [Catalytic activity/Vol] 128 U/L 45-[address] [facility] Work Phone: ALT [Catalytic activity/Vol] 14 U/L 13-[address] [facility] Work Phone: CO2 [Moles/Vol] 23.0 mmol/L 21.0-32.[address] [facility] Work Phone: [phone] Globulin (S) [Mass/Vol] 4.3 g/dL 2.2-4.2 [facility] Work Phone: Urea nitrogen/Creatinine [Mass ratio] 10.8 mg/mg 10-[address] [facility] Work Phone: [phone] Laboratory - Hematology and Cell countson 04-19-2021 Erythrocyte distribution width (RBC) [Entitic vol] 40.8 fL 35.1-43.[address] [facility] Work Phone: Erythrocyte distribution width (RBC) [Ratio] 13.2 % 11.6-14.[address] [facility] Work Phone: MCH (RBC) [Entitic mass] 29.7 pg 27.0-32.[address] [facility] Work Phone: MCHC Auto (RBC) [Mass/Vol]on 04-19-2021 MCHC (RBC) [Mass/Vol] 34.6 g/dL 32-36 [facility] Work Phone: No Panel Informationon 04-19 Estimated GFR (MDRD) Amer 158 mL/min >[address] [facility] Work Phone: Comment on above: GFR Calc Estimated GFR (MDRD) Non-Af Amer 131 mL/min >[address] [facility] Work Phone: Comment on above: Non- GFR Calc Platelets bldon 04-19-2021 Platelets (Bld) [#/Vol] 204 10*3/uL 150-[address] [facility] Work Phone: Serum or plasma albumin ubaldo urement (mass/volume)on 04-19-2021 Albumin [Mass/Vol] 2.6 g/dL 3.2-5.0 [facility] Work Phone: Serum or plasma albumin/glob ulin mass ratioon 04-19-2021 Albumin/Globulin [Mass ratio] 0.6 {ratio} 0.9-2.[address] [facility] Work Phone: Serum or plasma calcium ubaldo urement (mass/volume)on 04-19-2021 Calcium [Mass/Vol] 8.6 mg/dL 8.5-10.1 [facility] Work Phone: Serum or plasma creatinine m easurement (mass/volume)on 03-04-2022 Creatinine [Mass/Vol] 0.56 mg/dL 0.55-1.02 [facility] Work Phone: Comment on above: The validity of the calculated GFR & GFRAA in patients over 70 years has not been determined. Clinical correlation is essential. Serum or plasma urea nitroge n measurement (mass/volume)on 04-19-2021 Urea nitrogen [Mass/Vol] 6 mg/dL 7-[address] [facility] Work Phone: Serum or plasma uric acid me asurement (mass/volume)on 04-19-2021 Urate [Mass/Vol] 4.8 mg/dL 2.6-6.[address] [facility] Work Phone: Comment on above: The drugs N-Acetylcy steine and Metamizole may falsely depress this assay. Thin prep Papanicolaou smear with manual screeningon 04-19-2021 Thin prep Papanicolaou smear with manual screening 14 U/L 15-[address] [facility] Work Phone: Thin prep Papanicolaou smear with manual screening 7 5-[address] [facility] Work Phone: Thin prep Papanicolaou smear with manual screening 137 U/L 84-[address] [facility] Work Phone: Urine creatinine measurement (mass/volume)on 04-19-2021 Creatinine (U) [Mass/Vol] 115.00 mg/dL NO RANGE EST. [facility] Work Phone: Urine protein measurement (m ass/volume)on 04-19-2021 Protein (U) [Mass/Vol] 17.7 mg/dL 0.0-11.8 [facility] Work Phone: Urine protein/creatinine mas s ratioon 04-19-2021 Protein/Creatinine (U) [Mass ratio] 154 mg/g CRE 0-[address] [facility] Work Phone: Basophil percentageon 2021 Bilirubin [Mass/Vol] 0.20 mg/dL 0.20-1.00 [facility] Work Phone: Comment on above: For patients on eltr ombopag therapy, use of [place] TBIL is not recommended. Chloride [Moles/Vol] 108 mmol/L 98-[address] [facility] Work Phone: Glucose [Mass/Vol] 78 mg/dL 74-106 [facility] Work Phone: Potassium [Moles/Vol] 3.8 mmol/L 3.5-5.1 [facility] Work Phone: Protein [Mass/Vol] 6.8 g/dL 6.4-8.2 [facility] Work [facility]: Sodium [Moles/Vol] 138 mmol/L 136-145 [facility] Work Phone: WBC (Bld) [#/Vol] 9.0 10*3/uL 4.4-11.0 [facility] Work Phone: Blood erythrocytes count (nu mber/volume)on 03-27-2021 RBC (Bld) [#/Vol] 3.98 10*6/uL 4.2-5.4 [facility] Work [facility]: Blood hemoglobin measurement (mass/volume)on 03-27-2021 Hemoglobin (Bld) [Mass/Vol] 11.8 g/dL 12.0-15.[address] [facility] Work Phone: Blood platelet mean volumeon 03-27-2021 Platelet mean volume (Bld) [Entitic vol] 10.1 fL 6.2-12.[address] [facility] Work Phone: Determination of erythrocyte mean corpuscular volume (MCV)on 03-27-2021 MCV (RBC) [Entitic vol] 87.9 fL 81-99 [facility] Work Phone: Hematocrit Auto (Bld) [Volum e fraction]on 03-27-2021 Hematocrit (Bld) [Volume fraction] 35.0 % 37-[address] [facility] Work Phone: Laboratory - Chemistry and C hemistry - challengeon 03-27-2021 ALP [Catalytic activity/Vol] 101 U/L 45-[address] [facility] Work Phone: ALT [Catalytic activity/Vol] 17 U/L 13-[address] [facility] Work Phone: CO2 [Moles/Vol] 23.0 mmol/L 21.0-32.[address] [facility] Work Phone: Globulin (S) [Mass/Vol] 4.3 g/dL 2.2-4.2 [facility] Work Phone: T4 [Mass/Vol] 9.9 ug/dL 4.8-13.[address] [facility] Work Phone: Urea nitrogen/Creatinine [Mass ratio] 20.0 mg/mg 10-[address] [facility] Work Phone: Laboratory - Hematology and Cell countson 03-27-2021 Erythrocyte distribution width (RBC) [Entitic vol] 40.7 fL 35.1-43.[address] [facility] Work Phone: Erythrocyte distribution width (RBC) [Ratio] 12.7 % 11.6-14.[address] [facility] Work Phone: MCH (RBC) [Entitic mass] 29.6 pg 27.0-32.[address] [facility] Work Phone: MCHC Auto (RBC) [Mass/Vol]on 03-27-2021 MCHC (RBC) [Mass/Vol] 33.7 g/dL 32-36 [facility] Work Phone: No Panel Informationon 03-27 Estimated GFR (MDRD) Amer 179 mL/min >[address] [facility] Work Phone: Comment on above: GFR Calc Estimated GFR (MDRD) Non-Af Amer 148 mL/min >[address] [facility] Work Phone: Comment on above: Non- GFR Calc Thyroid Stimulating Hormone (TSH) 3.15 uIU/mL 0.358-3.[address] [facility] Work Phone: Platelets bldon 03-27-2021 Platelets (Bld) [#/Vol] 225 10*3/uL 150-[address] [facility] Work Phone: Serum or plasma albumin ubaldo urement (mass/volume)on 03-27-2021 Albumin [Mass/Vol] 2.5 g/dL 3.2-5.0 [facility] Work Phone: Serum or plasma albumin/glob ulin mass ratioon 03-27-2021 Albumin/Globulin [Mass ratio] 0.6 {ratio} 0.9-2.[address] [facility] Work Phone: Serum or plasma calcium ubaldo urement (mass/volume)on 03-27-2021 Calcium [Mass/Vol] 8.5 mg/dL 8.5-10.1 [facility] Work Phone: Serum or plasma creatinine m easurement (mass/volume)on 03-27-2021 Creatinine [Mass/Vol] 0.50 mg/dL 0.55-1.02 [facility] Work Phone: Comment on above: The validity of the calculated GFR & GFRAA in patients over 70 years has not been determined. Clinical correlation is essential. Serum or plasma urea nitroge n measurement (mass/volume)on 03-27-2021 Urea nitrogen [Mass/Vol] 10 mg/dL 7-[address] [facility] Work Phone: Thin prep Papanicolaou smear with manual screeningon 03-27-2021 Thin prep Papanicolaou smear with manual screening 11 U/L 15-[address] [facility] Work Phone: Thin prep Papanicolaou smear with manual screening 7 5-[address] [facility] Work Phone: Basophil percentageon 2020 WBC (Bld) [#/Vol] 8.6 10*3/uL 4.4-11.0 [facility] Work Phone: Blood erythrocytes count (nu mber/volume)on 02-06-2021 RBC (Bld) [#/Vol] 3.73 10*6/uL 4.2-5.4 [facility] Work Phone: Blood hemoglobin measurement (mass/volume)on 02-06-2021 Hemoglobin (Bld) [Mass/Vol] 11.4 g/dL 12.0-15.[address] [facility] Work Phone: Blood platelet mean volumeon 02-06-2021 Platelet mean volume (Bld) [Entitic vol] 10.3 fL 6.2-12.[address] [facility] Work Phone: Determination of erythrocyte mean corpuscular volume (MCV)on 02-06-2021 MCV (RBC) [Entitic vol] 88.7 fL 81-99 [facility] Work Phone: Gestational diabetes screen 1-hour screen with 50g oral glucose loadon 02-06-2021 Glucose 1 Hr post 50 g glucose PO [Mass/Vol] 126 mg/dL 70-[address] [facility] Work Phone: Hematocrit Auto (Bld) [Volum e fraction]on 02-06-2021 Hematocrit (Bld) [Volume fraction] 33.1 % 37-[address] [facility] Work Phone: Laboratory - Hematology and Cell countson 02-06-2021 Erythrocyte distribution width (RBC) [Entitic vol] 46.7 fL 35.1-43.[address] [facility] Work Phone: Erythrocyte distribution width (RBC) [Ratio] 14.6 % 11.6-14.[address] [facility] Work Phone: MCH (RBC) [Entitic mass] 30.6 pg 27.0-32.[address] [facility] Work Phone: MCHC Auto (RBC) [Mass/Vol]on 02-06-2021 MCHC (RBC) [Mass/Vol] 34.4 g/dL 32-36 [facility] Work Phone: Platelets bldon 02-06-2021 Platelets (Bld) [#/Vol] 205 10*3/uL 150-[address] [facility] Work Phone: Absolute lymphocyte counton 02-04-2021 Lymphocytes Auto (Unsp spec) [#/Vol] 2.06 10*3/uL 0.83-4.[address] [facility] Work Phone: Basophil percentageon 2020 Basophil percentage 0-5 SEEN /hpf [facility] Work Phone: Bilirubin [Mass/Vol] 0.20 mg/dL 0.20-1.00 [facility] Work Phone: Comment on above: For patients on eltr ombopag therapy, use of [place] TBIL is not recommended. Chloride [Moles/Vol] 107 mmol/L 98-107 [facility] Work Phone: Eosinophils/100 WBC (Bld) 3.1 % 0-[address] [facility] Work Phone: Glucose [Mass/Vol] 80 mg/dL 74-106 [facility] Work Phone: [phone] Comment on above: Please note revised GLUCOSE reference range effective 2017. Neutrophils (Bld) [#/Vol] 5.4 10*3/uL 2.0-7.[address] [facility] Work Phone: Potassium [Moles/Vol] 3.8 mmol/L 3.5-5.1 [facility] Work Phone: Protein [Mass/Vol] 6.8 g/dL 6.4-8.2 [facility] Work Phone: Sodium [Moles/Vol] 140 mmol/L 136-145 [facility] Work Phone: WBC (Bld) [#/Vol] 8.5 10*3/uL 4.4-11.0 [facility] Work Phone: Bilirubin Test strip Ql (U)o n 02-04-2021 Bilirubin Ql (U) Negative Negative [facility] Work Phone: Blood erythrocytes count (nu mber/volume)on 02-04-2021 RBC (Bld) [#/Vol] 3.76 10*6/uL 4.2-5.4 [facility] Work Phone: Blood hemoglobin measurement (mass/volume)on 02-04-2021 Hemoglobin (Bld) [Mass/Vol] 11.6 g/dL 12.0-15.[address] [facility] Work Phone: Blood lymphocytes/100 leukoc yteson 02-04-2021 Lymphocytes/100 WBC (Bld) 24.3 % 19-[address] [facility] Work Phone: Blood monocytes/100 leukocyt eson 02-04-2021 Monocytes/100 WBC (Bld) 6.9 % 0-10 [facility] Work Phone: Blood platelet mean volumeon 02-04-2021 Platelet mean volume (Bld) [Entitic vol] 10.1 fL 6.2-12.[address] [facility] Work Phone: Determination of erythrocyte mean corpuscular volume (MCV)on 02-04-2021 MCV (RBC) [Entitic vol] 90.7 fL 81-99 [facility] Work Phone: Hematocrit Auto (Bld) [Volum e fraction]on 02-04-2021 Hematocrit (Bld) [Volume fraction] 34.1 % 37-[address] [facility] Work Phone: Ketones Test strip Ql (U)on 02-04-2021 Ketones Ql (U) Negative Negative [facility] Work Phone: Laboratory - Chemistry and C hemistry - challengeon 02-04-2021 ALP [Catalytic activity/Vol] 59 U/L 45-[address] [facility] Work Phone: ALT [Catalytic activity/Vol] 14 U/L 13-[address] [facility] Work Phone: CO2 [Moles/Vol] 23.0 mmol/L 21.0-32.[address] [facility] Work Phone: Globulin (S) [Mass/Vol] 3.9 g/dL 2.2-4.2 [facility] Work Phone: Urea nitrogen/Creatinine [Mass ratio] 16.7 mg/mg 10-[address] [facility] Work Phone: Laboratory - Hematology and Cell countson 02-04-2021 Basophils/100 WBC (Unsp spec) 0.5 % 0-[address] [facility] Work Phone: Erythrocyte distribution width (RBC) [Entitic vol] 48.1 fL 35.1-43.[address] [facility] Work Phone: Erythrocyte distribution width (RBC) [Ratio] 14.6 % 11.6-14.[address] [facility] Work Phone: Immature granulocytes/100 WBC (Bld) 0.900 % 0.0-0.[address] [facility] Work Phone: Comment on above: IG% - Immature Granu locytes (promyelocytes, myelocytes and metamyelocytes) > 1% indicates that a LEFT SHIFT is Present. MCH (RBC) [Entitic mass] 30.9 pg 27.0-32.[address] [facility] Work Phone: Neutrophils/100 WBC (Bld) 64.3 % 47-[address] [facility] Work Phone: Nucleated RBC/100 WBC (Bld) [Ratio] 0 % 0-[address] [facility] Work Phone: MCHC Auto (RBC) [Mass/Vol]on 02-04-2021 MCHC (RBC) [Mass/Vol] 34.0 g/dL 32-36 [facility] Work Phone: Mucus LM Ql (Urine sed)on Mucus Ql (Urine sed) 0 SEEN /hpf [facility] Work Phone: Nitrite Test strip Ql (U)on 02-04-2021 Nitrite Ql (U) Negative Negative [facility] Work Phone: No Panel Informationon 02-04 Estimated Creatinine Clearance Calc 186.80 ml/min [facility] Work Phone: Estimated GFR (MDRD) Amer 221 mL/min >[address] [facility] Work Phone: Comment on above: GFR Calc Estimated GFR (MDRD) Non-Af Amer 182 mL/min >[address] [facility] Work Phone: Comment on above: Non- GFR Calc Platelets bldon 02-04-2021 Platelets (Bld) [#/Vol] 215 10*3/uL 150-[address] [facility] Work Phone: Protein Test strip Ql (U)on 02-04-2021 Protein Ql (U) Negative Negative [facility] Work Phone: Serum or plasma albumin ubaldo urement (mass/volume)on 02-04-2021 Albumin [Mass/Vol] 2.9 g/dL 3.2-5.0 [facility] Work Phone: Serum or plasma albumin/glob ulin mass ratioon 02-04-2021 Albumin/Globulin [Mass ratio] 0.7 {ratio} 0.9-2.[address] [facility] Work Phone: Serum or plasma calcium ubaldo urement (mass/volume)on 02-04-2021 Calcium [Mass/Vol] 8.4 mg/dL 8.5-10.1 [facility] Work Phone: Serum or plasma creatinine m easurement (mass/volume)on 02-04-2021 Creatinine [Mass/Vol] 0.42 mg/dL 0.55-1.02 [facility] Work Phone: Comment on above: The validity of the calculated GFR & GFRAA in patients over 70 years has not been determined. Clinical correlation is essential. Serum or plasma urea nitroge n measurement (mass/volume)on 02-04-2021 Urea nitrogen [Mass/Vol] 7 mg/dL 7-[address] [facility] Work Phone: Squamous epithelial cells de tection in urine sediment by light microscopyon 02-04-2021 Epithelial cells.squamous LM Ql (Urine sed) 0-5 SEEN /hpf [facility] Work Phone: Thin prep Papanicolaou smear with manual screeningon 02-04-2021 Thin prep Papanicolaou smear with manual screening 12 U/L 15-[address] [facility] Work Phone: Thin prep Papanicolaou smear with manual screening 10 5-[address] [facility] Work Phone: Thin prep Papanicolaou smear with manual screening 116 U/L 84-[address] [facility] Work Phone: Urine blood detectionon 01-17 0-2020 RBC Ql (U) Negative Negative [facility] Work Phone: RBC Ql (U) 0 SEEN /hpf [facility] Work Phone: Urine clarityon 02-04-2021 Clarity (U) Clear Clear [facility] Work Phone: Urine color determinationon 02-04-2021 Color (U) Straw Yellow [facility] Work Phone: Urine creatinine measurement (mass/volume)on 02-04-2021 Creatinine (U) [Mass/Vol] mg/dL NO RANGE EST. [facility] Work Phone: Urine glucose detectionon Glucose Ql (U) Normal mg/dl Normal [facility] Work Phone: Urine leukocyte esterase det ection by dipstickon 02-04-2021 Leukocyte esterase Test strip Ql (U) Negative Negative [facility] Work Phone: Urine pHon 02-04-2021 pH (U) 7.0 [pH] [facility] Work Phone: Urine protein measurement (m ass/volume)on 02-04-2021 Protein (U) [Mass/Vol] mg/dL 0.0-11.8 [facility] Work Phone: Urine protein/creatinine mas s ratioon 02-04-2021 Protein/Creatinine (U) [Mass ratio] TNP [facility] Work Phone: Comment on above: Test not performed Urine sediment bacteria coun t by microscopy (number/high power field)on 02-04-2021 Bacteria LM.HPF (Urine sed) [#/Area] 1 /[HPF] None Seen [facility] Work Phone: Urine specific gravity measu rementon 02-04-2021 Specific gravity (U) [Rel density] 1.[address] [facility] Work Phone: Urobilinogen Auto test strip Ql (U)on 02-04-2021 Urobilinogen Ql (U) Normal mg/dl [facility]: CNPNon 04-19-2020 CNPN Telephone (AGRHEUHWN ) -------- MICHELLE MAURICIO ([id number]) 1985 F Date Time Provider Department 04/19/20 CRICKET EVANS During your visit today, we recorded the following information about you: Jessie Mcdonald Spectrographic Analyst Ppg 04/19/2020 10:59 AM Signed Cimzia faxed to Mihai Mcdonald Spectrographic Analyst Ppg Sherin Landa Novelty Candy Maker 04/24/2020 9:00 AM Signed Cimzia APPROVED -[id number] EP 04.18.20 - 10.19.20 [employer] (cover my meds Sherin Landa Novelty Candy Maker Allergies As of Date: 04/19/2020 Noted Allergy Reaction AMOXICILLIN 03/13/2016 12 - Shortness of Breath DOXYCYCLINE 03/13/2016 12 - Shortness of Breath PIPERACILLIN 08/07/2016 10 - Anaphylaxis TAZOBACTAM 08/07/2016 10 - Anaphylaxis TRAMADOL 03/13/2016 11 - Vomiting VANCOMYCIN 08/07/2016 10 - Anaphylaxis Date Reviewed: 03/22/2020 Reviewed by: Cricket Evans - Fully Assessed Reason for Visit: Pending PA [Other] Cmt: Dillonzia APPROVED -[id number] EP 04.18.20 - 10.19.20 [employer] (cover my meds) Reason For Visit History Recorded Prescriptions as of 04/19/2020 Sig: CIMZIA STARTER KIT 400 MG/2 M* Inject 2 mL subcutaneously ev* CIMZIA 400 MG/2 ML (200 MG/ML* Inject 2 mL subcutaneously ev* CYANOCOBALAMIN (VIT B-12) 1,0* INJECT 1 ML INTRAMUSCULARLY O* ETONOGESTREL 0.12 MG-ETHINYL * Use 1 Each vaginally as direc* IBUPROFEN 600 MG TABLET Take 1 tablet by mouth every * PROMETHAZINE 25 MG TABLET Take 1 tablet by mouth every * ONDANSETRON 4 MG DISINTEGRATI* TAKE 1 TABLET BY MOUTH EVERY * ERGOCALCIFEROL (VITAMIN D2) 1* TAKE 1 CAPSULE BY MOUTH ONE T* EPIPEN INJECTION Inject 1 Pen intramuscularly * MONTELUKAST 10 MG TABLET Take 10 mg by mouth once adrian* SPIRONOLACTONE 100 MG TABLET Take 100 mg by mouth once taj* ALBUTEROL INHALATION Inhale as instructed. Problem List As Of Date 04/19/2020 Noted Resolved Rheumatoid arthritis (HCC) [M06.9] Long-term use of immunosuppressant medication [* Antinuclear antibody (YOHAN) titer greater than 1* Rheumatoid arthritis of multiple sites with neg*02/19/2017 More... Slow transit constipation [K59.01] 04/04/2019 Generalized abdominal pain [R10.84] 04/04/2019 RUQ pain [R10.11] 09/29/2019 Acalculous cholecystitis [K81.9] 09/29/2019 GERD (gastroesophageal reflux disease) [K21.9] 10/25/2019 More... Asthma [J45.909] 10/25/2019 More... PFO (patent foramen ovale) [Q21.1] 10/25/2019 More... Acute cholecystitis with chronic cholecystitis *10/25/2019 Encounter Status:Closed by MCDONALD ADMISSIONS CONSULTANT JESSIE FOX on 04/19/20 [facility] Miguel 04-06-2020 BRITTANYN Telephone (AGRHEUHWN ) -------- MICHELLE [id number]) 1985 F Date Time Provider Department 04/06/20 CRICKET EVANS During your visit today, we recorded the following information about you: Paris Lee PSS 04/06/2020 11:02 AM Signed Lauryn from [facility] is calling to start the process of the prior auth for her Cimzia. Lauryn can be reached at [phone] EXT. [phone] and the fax number is [phone] The phone number for the prior auth for the insurance company is [phone] Paris Miller PSS Desiree Qiana Camera Control Operator 04/10/2020 9:01 PM Signed RX Prior Auth Sherin Landa Novelty Candy Maker 04/18/2020 9:59 AM Signed Cimzia - [employer] (cover my meds) Sherin Landa Novelty Candy Maker Sherin Landa Novelty Candy Maker 04/19/2020 7:49 AM Signed Cimzia APPROVED -[id number] EP 04.18.20 - 10.19.20 [employer] (cover my meds) Sherin [facility] Novelty Candy Maker Karrie Goodson MA 04/19/2020 9:46 AM Addendum Pt is aware and [facility] is aware. Giuliana from [facility] returned call stating copay for medication is $500, Giuliana is waiting for return call from patient regarding assistance. Allergies As of Date: 04/06/2020 Noted Allergy Reaction AMOXICILLIN 03/13/2016 12 - Shortness of Breath DOXYCYCLINE 03/13/2016 12 - Shortness of Breath PIPERACILLIN 08/07/2016 10 - Anaphylaxis TAZOBACTAM 08/07/2016 10 - Anaphylaxis TRAMADOL 03/13/2016 11 - Vomiting VANCOMYCIN 08/07/2016 10 - Anaphylaxis Date Reviewed: 03/22/2020 Reviewed by: Cricket Evans - Fully Assessed Reason for Visit: Medication Authorization [[id number]] Cmt: Cimzia APPROVED -[id number] EP 04.18.20 - 10.19.20 [employer] (cover my meds) Reason For Visit History Recorded Prescriptions as of 04/06/2020 Sig: CIMZIA STARTER KIT 400 MG/2 M* Inject 2 mL subcutaneously ev* CIMZIA 400 MG/2 ML (200 MG/ML* Inject 2 mL subcutaneously ev* CYANOCOBALAMIN (VIT B-12) 1,0* INJECT 1 ML INTRAMUSCULARLY O* ETONOGESTREL 0.12 MG-ETHINYL * Use 1 Each vaginally as direc* IBUPROFEN 600 MG TABLET Take 1 tablet by mouth every * PROMETHAZINE 25 MG TABLET Take 1 tablet by mouth every * ONDANSETRON 4 MG DISINTEGRATI* TAKE 1 TABLET BY MOUTH EVERY * ERGOCALCIFEROL (VITAMIN D2) 1* TAKE 1 CAPSULE BY MOUTH ONE T* EPIPEN INJECTION Inject 1 Pen intramuscularly * MONTELUKAST 10 MG TABLET Take 10 mg by mouth once adrian* SPIRONOLACTONE 100 MG TABLET Take 100 mg by mouth once taj* ALBUTEROL INHALATION Inhale as instructed. Problem List As Of Date 04/06/2020 Noted Resolved Rheumatoid arthritis (HCC) [M06.9] Long-term use of immunosuppressant medication [* Antinuclear antibody (YOHAN) titer greater than 1* Rheumatoid arthritis of multiple sites with neg*02/19/2017 More... Slow transit constipation [K59.01] 04/04/2019 Generalized abdominal pain [R10.84] 04/04/2019 RUQ pain [R10.11] 09/29/2019 Acalculous cholecystitis [K81.9] 09/29/2019 GERD (gastroesophageal reflux disease) [K21.9] 10/25/2019 More... Asthma [J45.909] 10/25/2019 More... PFO (patent foramen ovale) [Q21.1] 10/25/2019 More... Acute cholecystitis with chronic cholecystitis *10/25/2019 Encounter Status:Closed by PARIS RIBEIRO on 04/06/20 [facility] Miguel 03-22-2020 BRITTANYN Telephone (AGRHEUHWN ) -------- MICHELLE MAURICIO ([id number]) 1985 F Date Time Provider Department 03/22/20 CRICKET EVANS During your visit today, we recorded the following information about you: Jurgen Ramos [place] 03/22/2020 2:56 PM Signed At checkout, per Dr Evans: Cimzia prior auth switching again - RA Sent brochure Jurgen Ramos Spectrographic Analyst Desiree Kiran Camera Control Operator 03/29/2020 9:03 AM Signed RX Prior Auth Allergies As of Date: 03/22/2020 Noted Allergy Reaction AMOXICILLIN 03/13/2016 12 - Shortness of Breath DOXYCYCLINE 03/13/2016 12 - Shortness of Breath PIPERACILLIN 08/07/2016 10 - Anaphylaxis TAZOBACTAM 08/07/2016 10 - Anaphylaxis TRAMADOL 03/13/2016 11 - Vomiting VANCOMYCIN 08/07/2016 10 - Anaphylaxis Date Reviewed: 03/22/2020 Reviewed by: Cricket Evans - Fully Assessed Reason for Visit: Medication Authorization [[id number]] Cmt: cimzia Prescriptions as of 03/22/2020 Sig: CIMZIA STARTER KIT 400 MG/2 M* Inject 2 mL subcutaneously ev* CIMZIA 400 MG/2 ML (200 MG/ML* Inject 2 mL subcutaneously ev* CYANOCOBALAMIN (VIT B-12) 1,0* INJECT 1 ML INTRAMUSCULARLY O* ETONOGESTREL 0.12 MG-ETHINYL * Use 1 Each vaginally as direc* IBUPROFEN 600 MG TABLET Take 1 tablet by mouth every * PROMETHAZINE 25 MG TABLET Take 1 tablet by mouth every * ONDANSETRON 4 MG DISINTEGRATI* TAKE 1 TABLET BY MOUTH EVERY * ERGOCALCIFEROL (VITAMIN D2) 1* TAKE 1 CAPSULE BY MOUTH ONE T* EPIPEN INJECTION Inject 1 Pen intramuscularly * MONTELUKAST 10 MG TABLET Take 10 mg by mouth once adrian* SPIRONOLACTONE 100 MG TABLET Take 100 mg by mouth once taj* ALBUTEROL INHALATION Inhale as instructed. Problem List As Of Date 03/22/2020 Noted Resolved Rheumatoid arthritis (HCC) [M06.9] Long-term use of immunosuppressant medication [* Antinuclear antibody (YOHAN) titer greater than 1* Rheumatoid arthritis of multiple sites with neg*02/19/2017 More... Slow transit constipation [K59.01] 04/04/2019 Generalized abdominal pain [R10.84] 04/04/2019 RUQ pain [R10.11] 09/29/2019 Acalculous cholecystitis [K81.9] 09/29/2019 GERD (gastroesophageal reflux disease) [K21.9] 10/25/2019 More... Asthma [J45.909] 10/25/2019 More... PFO (patent foramen ovale) [Q21.1] 10/25/2019 More... Acute cholecystitis with chronic cholecystitis *10/25/2019 Encounter Status:Closed by RIK ADMISSIONS CONSULTANTJURGEN on 03/22/20 Normal [facility] PROGRESSon 03-22-2020 PROGRESS HNO ID: [id number] Author: Cricket Evans Service: ? Author Type: Physician Type: Progress Notes Filed: 03/22/2020 2:33 PM Note Text: Subjective This Team Access Model visit is a virtual encounter. It required patient-provider interaction for the medical decision making as documented below. A phone visit telemedicine visit was substituted for a protocol-required in-person visit because of the recent COVID-19 pandemic which has caused disruption in normal operations spanning access to care, medical treatment, medications, etc. This phone or virtual visit was conducted to prevent exposure of the patient to the virus and to optimize the patient's safety that comes with inherent limitations of a phone encounter. HPI: Michelle Mauricio is a 34 year old female who presents with seronegative rheumatoid is here for follow-up. At her last visit in November 2019 she was interested in switching from Actemra to Xeljanz and has been on Xeljanz 11 mg daily since early January 2020 with improvement but is now looking to switch treatments again as she plans on conceiving and getting in the next few months. She has no pain today. She denies much swelling. She has mild stiffness in the hands lasting 15 to 20 minutes. She has noticed an improvement with Xeljanz over the last 2 months. She is tolerating it well without problems. She denies any infections. She discontinued Actemra around November 2019 because she was interested in taking a daily pill as she had trouble with remembering to take Actemra. She had acute cholecystitis and had laparoscopic cholecystectomy in October 2019. Actemra has worked well for her in the past. She has had leukopenia in the past. She's had nausea with methotrexate in the past. 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 She was given high dose steroids visit with improvement in facial droop. She has mild fatigue. Sicca symptoms are stable. She's been on actemra since November 2016-November 2019. She's on control. She's failed Humira and simponi Aria in the past. She's tried and failed multiple NSAIDs in the past. She failed methotrexate and Plaquenil in the past and wants to hold off on taking methotrexate as she's concerned about side effects. Recent YOHAN was 1:320 but all other serologies were negative. She has a strong family history of MS and rheumatoid. New patient May 2015 29-year-old pleasant lady with inflammatory polyarthropathy? Versus history of rheumatoid is here for evaluation. Her pain today is 4/10 in her hands and feet. Symptoms are worse in the morning with stiffness lasting one to one and a half hours. She's had symptoms for the last 8 years. She has some swelling in her hands and feet. She also has pain in her wrists, elbows and knees. Occasional she gets some pain in the right hip but believes it's from an injury. She recalls getting injections in her wrists as a teenager but was not diagnosed with rheumatoid at that time. She takes Advil 4 tablets a day which helps some. In the past she's tried other jlnw-hvcqrxkfalbjny-waby oxen, Lodine, Voltaren, Daypro. She has been given methotrexate which she took for a year and discontinued August 2014. She was on Plaquenil for 8 years and also discontinued Plaquenil in August 2014. Plaquenil seemed to help in the beginning but stopped working later .Methotrexate seemed to help some but not completely and she just did not like being on it. She is a history of positive YOHAN and elevated ESR-no records available. She has fatigue and dry eyes. She has a strong family history of rheumatoid arthritis affecting her mother and grandmother. She has a family history of MS affecting 3 of her aunts. She's a history of asthma. She gets an echocardiogram every 3 years has she has a heart murmur and a PFO. She works full-time, she has 2 children. She has an IUD. PAST MEDICAL HISTORY Diagnosis Date - Antinuclear antibody (YOHAN) titer greater than 1:80 - Hypertension - Long-term use of immunosuppressant medication - Rheumatoid arthritis (HCC) PAST SURGICAL HISTORY Procedure Laterality Date - COLONOSCOPY 04/04/2019 Dr. Worthington-poor/inadequate prep. The prep is inadeqaute. Thick liquid stool seen throughout the colon. At least 30-40% of colonic wall was not well visualized. - EGD 07/25/2019 Dr. Worthington-acute gastritis. SB Bx-unremarkable. Antrum/fundus Bx-unremarkable, HP negative. Mid esophagus Bx-unremarkable. - EXTRACTION ERUPTED TOOTH/EXR - LAPAROSCOPIC APPENDECTOMY 2010 - LAPAROSCOPIC CHOLECYSTECTOMY 10/26/2019 lap liver biopsy - LAPAROSCOPY DIAGNOSTIC 02/06/2019 Ruptured vein - OOPHORECTOMY PARTIAL OR TOTAL Right 2018 Health Maintenance Procedures SPIROMETRY due on 2002 ANNUAL PCP TEAM CHRONIC DISEASE VISIT due on 2002 HIV SCREENING due on 2002 DTAP,TDAP,TD(1 - Tdap) due on 12/11/2003 PAP TESTING due on 2005 HPV TESTING due on 2014 INFLUENZA(1) due on 10/18/2019 Discussed health maintenance, including regular aerobic exercise, low fat diet, and periodic exams. Health Maintenance Immunizations Given Immunizations: Immunization History Administered Date(s) Administered Tuberculin Skin Test, unspecified 11/07/2019 Current Outpatient Medications Medication Sig - certolizumab pegol (CIMZIA STARTER KIT) 400 mg/2 mL (200 mg/mL x 2) sub-q syringe kit Inject 2 mL subcutaneously every 2 weeks for 3 doses. Inject 400mg (2 pens) subcutaneously on weeks 0, 2 and 4 - certolizumab pegol (CIMZIA) 400 mg/2 mL (200 mg/mL x 2) sub-q syringe kit Inject 2 mL subcutaneously every 4 weeks. - cyanocobalamin 1,000 mcg/mL INJECT 1 ML INTRAMUSCULARLY ONCE EVERY MONTH. *DISPENSE WITH 25G 1 INCH NEEDLE/SYRINGE - Etonogestrel-Ethinyl Estradiol (NUVARING) 0.12-0.015 mg/24 hr vaginal ring Use 1 Each vaginally as directed. Insert vaginally and leave in place for 3 consecutive weeks, then remove for 1 week. - ibuprofen (MOTRIN) 600 mg tablet Take 1 tablet by mouth every 6 hours as needed for Pain. - promethazine (PHENERGAN) 25 mg tablet Take 1 tablet by mouth every 6 hours as needed (for nausea). - ondansetron orally disintegrating (ZOFRAN ODT) 4 mg disintegrating tablet TAKE 1 TABLET BY MOUTH EVERY 8 HOURS NEEDED - ergocalciferol 50,000 unit capsule (VITAMIN D2, DRISDOL) TAKE 1 CAPSULE BY MOUTH ONE TIME A WEEK FOR 12 DOSES. - epinephrine (EPIPEN INJECTION) Inject 1 Pen intramuscularly as needed. - montelukast (SINGULAIR) 10 mg tablet Take 10 mg by mouth once daily. - spironolactone (ALDACTONE) 100 mg tablet Take 100 mg by mouth once daily. - ALBUTEROL INHALATION Inhale as instructed. No current facility-administered medications for this visit. ALLERGIES Allergen Reactions - Amoxicillin Shortness of Breath - Doxycycline Shortness of Breath - Piperacillin Anaphylaxis - Tazobactam Anaphylaxis - Tramadol Vomiting - Vancomycin Anaphylaxis FAMILY HISTORY Problem Relation Age of Onset - Arthritis Mother RA - Colon Cancer No Family History Social History Tobacco Use - Smoking status: Former Smoker Packs/day: 0.50 Years: 2.00 Pack years: 1.00 Types: Cigarettes Quit date: 2004 Years since quittin.1 - Smokeless tobacco: Never Used Substance Use Topics - Alcohol use: Not Currently Alcohol/week: 2.5 standard drinks Types: 1 Glasses of Wine (5oz) per week Comment: Occasionally; once a week - Drug use: No History Review: I have reviewed and modified as needed, the following during this visit: Allergies, Past Medical History, Past Surgical History, Past Family History, Past Social History. Review of Systems CONSTITUTIONAL: Negative for weight gain, weight loss, weakness, fever, falls. Positive for fatigue EYES: Negative for Eye Pain, Eye Redness, Reduced Vision, Diplopia, Blurred Vision, Dryness, Feels like something in Eye(s), Eye Itching NOSE, THROAT: Negative for frequent or significant headaches, No changes in hearing or vision, no nose bleeds or other nasal problems NECK: Negative for lumps, goiter, pain and significant neck swelling RESPIRATORY: Negative for cough, hemoptysis, wheezing or shortness of breath CARDIOVASCULAR: No chest pain, arrhythmia, palpitations, heart murmurs GI: No nausea, vomiting, or diarrhea : No history of dysuria, frequency or incontinence Kidney disease/stones: no MUSCULOSKELETAL: Negative formuscle weakness back pain. Negative for joint pain, positive for morning stiffness, negative for joint swelling SKIN: Negative for changes in the skin redness, easily bruising, pruritus, skin rash, malar rash, hives, sun sensitivity, tightness, nodules/bumps, hair loss, skin lesion, ulcerations, color changles of hands or feet in the cold. Negative for rash PSYCH: Negative for excessive worries, anxious, easily losing temper, feeling depressed, feeling agitated, diffuclty falling asleep, diffuclty staying asleep HEMATOLOGY/LYMPHOLOGY Negative for prolonged bleeding, bruising easily or swollen nodes ENDOCRINE: Negative for cold or heat intolerance, polyuria, polydipsia and goiter NEURO: Negative for headache, dizziness, syncope, muscle spasms, tingling, loss of consciousness, sensitivity or pain of hands and/or feet, memory loss, night sweats VIDEO EXAM: (performed via video enabled technology) GENERAL: Well appearing, alert, comfortable, in no acute distress,well nourished. Eyes: vision grossly intact Hearing -grossly intact HEENT: external ears normal. External nose normal, NECK: thyroid appears symmetric Neuro- Speech intact. No facial droop Musculoskeletal-difficul ty making tight fist with both hands Skin-no visible rash Orientation - Oriented to time, place, person AND situation. Appropriate mood and affect. Good insight. Good judgment. Office visit January 2019 There were no vitals taken for this visit. Physical Exam GENERAL: Well appearing, alert, comfortable, in no acute distress, well-hydrated, well nourished. HEENT: Negative for external ears normal. Canals are clear. Both TMs visualized and are normal. Eye Exam normal. External nose normal, no nasal ulcer or throat ulcer. NECK: NECK Supple, no adenopathy; thyroid symmetric, normal size, no bruits CARDIAC: regular rate and rhythm, No murmur asculated. and Equal peripheral pulses RESPIRATORY: Lungs clear to auscultation. No wheezing, rhonchi, rales VASCULAR: RRR without murmur, gallop, or rubs. No ectopy. ABDOMEN: Soft, non tender. BS active. No masses or organomegaly. LYMPHATIC: Negative for adenopathy in the neck, axillae, groin, supraclavicular and auricular. NEURO: Motor and sensory exam normal MOTOR: Normal; including tone, gait, stressed gait, power and coordination. SKIN: Negative for alopecia, skin rash, malar rash, skin lesion, skin ulcer, pits, thickening, color changes, telangiectasias, nail changes, nail ridging, nail pitting, onycholysis. Negative for rash MUSCULOSKELETAL: Mild tenderness bilateral second third MCP joints Bunion deformity bilateral first MTPs Serology: Rheumatoid factor negative, anti-CCP negative, YOHAN 1:320, double-stranded DNA negative, SSA and SSB negative, hepatitis panel negative, C3 and C4 normal. TB QuantiFERON negative Lab Results: January 2020 CMP normal CBC normal ESR normal CRP normal October 2019 Creatinine 0.9 CRP normal CBC normal ESR 17 January 2019 Creatinine 0.96 Liver enzymes normal CBC normal ESR normal CRP normal August 2018 CBC with white count 3.8 ESR 1 CRP normal CMP normal July 2016 TB QuantiFERON negative Vectra score 20 Radiology Results: Imaging May 2015 X-ray hands normal X-ray feet normal X-ray wrists normal Assessment (M06.09) Rheumatoid arthritis of multiple sites with negative rheumatoid factor (HCC) (primary encounter diagnosis) (Z79.899) Long-term use of immunosuppressant medication (R76.0) Antinuclear antibody (YOHAN) titer greater than 1:80 (D72.819) Leukopenia, unspecified type 34 -year-old pleasant lady with #1 seronegative rheumatoid-on Xeljanz 11 mg daily since January 2020 with improvement but wants to switch back to Cimzia as she plans on conceiving. Prior to Xeljanz was on Actemra weekly but not compliant with self injections. In the past failed simponi Aria, Humira, methotrexate and Plaquenil . She has a strong family history of rheumatoid arthritis. 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 Actemra induced? 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 Can continue during and Recent blood work from January 2020 reviewed No recent prednisone use-continue to hold off History of nausea with methotrexate-continue to hold off on DMARD Follow-up in 4 months Plan No orders found for this visit on 03/22/20. Return in about 4 months (around 07/20/2020). Cricket Evans MD [facility] 12-23-2019 [place] Telephone (YUUHWTalib ) -------- MICHELLE MAURICIO ([id number]) 1985 F Date Time Provider Department 12/23/19 CRICKET EVANS During your visit today, we recorded the following information about you: ALVINA VENEGAS CMA 12/23/2019 7:21 AM Signed Patient needs updated TB test for PA. Thank You, JOSE VERNON MD 12/23/2019 10:40 AM Signed done Delmy Seccia 12/23/2019 2:19 PM Signed I called patient. She said she had a TB test done in October and it was faxed to us. This was done at her work. Delmy Seccia Allergies As of Date: 12/23/2019 Noted Allergy Reaction AMOXICILLIN 03/13/2016 12 - Shortness of Breath DOXYCYCLINE 03/13/2016 12 - Shortness of Breath PIPERACILLIN 08/07/2016 10 - Anaphylaxis TAZOBACTAM 08/07/2016 10 - Anaphylaxis TRAMADOL 03/13/2016 11 - Vomiting VANCOMYCIN 08/07/2016 10 - Anaphylaxis Date Reviewed: 12/07/2019 Reviewed by: Cricket Evans - Fully Assessed Reason for Visit: LABS [Other] Reason For Visit History Recorded Primary Visit Diagnosis:Other specified rheumatoid arthritis, multiple sites (HCC) [M06.89] Order(s):BLOOD TB SCREEN, INCUBATED [[id number]] Order #: [id number] FUTURE Prescriptions as of 12/23/2019 Sig: XELJANZ XR 11 MG TABLET,EXTEN* Take 1 tablet by mouth once d* ETONOGESTREL 0.12 MG-ETHINYL * Use 1 Each vaginally as direc* IBUPROFEN 600 MG TABLET Take 1 tablet by mouth every * PROMETHAZINE 25 MG TABLET Take 1 tablet by mouth every * ONDANSETRON 4 MG DISINTEGRATI* TAKE 1 TABLET BY MOUTH EVERY * ERGOCALCIFEROL (VITAMIN D2) 1* TAKE 1 CAPSULE BY MOUTH ONE T* CYANOCOBALAMIN (VIT B-12) 1,0* Inject 1 mL intramuscularly o* EPIPEN INJECTION Inject 1 Pen intramuscularly * MONTELUKAST 10 MG TABLET Take 10 mg by mouth once adrian* SPIRONOLACTONE 100 MG TABLET Take 100 mg by mouth once taj* ALBUTEROL INHALATION Inhale as instructed. Problem List As Of Date 12/23/2019 Noted Resolved Rheumatoid arthritis (HCC) [M06.9] Long-term use of immunosuppressant medication [* Antinuclear antibody (YOHAN) titer greater than 1* Rheumatoid arthritis of multiple sites with neg*02/19/2017 More... Slow transit constipation [K59.01] 04/04/2019 Generalized abdominal pain [R10.84] 04/04/2019 RUQ pain [R10.11] 09/29/2019 Acalculous cholecystitis [K81.9] 09/29/2019 GERD (gastroesophageal reflux disease) [K21.9] 10/25/2019 More... Asthma [J45.909] 10/25/2019 More... PFO (patent foramen ovale) [Q21.1] 10/25/2019 More... Acute cholecystitis with chronic cholecystitis *10/25/2019 Encounter Status:Closed by CRICKET EVANS MD on 12/23/19 [facility] 12-07-2019 [facility] Telephone (AGRHEUHWN ) -------- LULYMICHELLE ([id number]) 1985 F Date Time Provider Department 12/07/19 CRICKET EVANS During your visit today, we recorded the following information about you: Jurgen Ramos Spectrographic Analyst 12/07/2019 8:09 AM Signed At checkout, per Dr Evans: : Changing to xeljanz- needs ashutosh auth- confirm specialty pharmacy Keep mar appt Jurgen Ramos [place] Allergies As of Date: 12/07/2019 Noted Allergy Reaction AMOXICILLIN 03/13/2016 12 - Shortness of Breath DOXYCYCLINE 03/13/2016 12 - Shortness of Breath PIPERACILLIN 08/07/2016 10 - Anaphylaxis TAZOBACTAM 08/07/2016 10 - Anaphylaxis TRAMADOL 03/13/2016 11 - Vomiting VANCOMYCIN 08/07/2016 10 - Anaphylaxis Date Reviewed: 12/07/2019 Reviewed by: Cricket Evans - Fully Assessed Reason for Visit: Medication Authorization [[id number]] Cmt: APPROVED XELJANZ [id number] 12/13/19-12/12/2020 [employer] Reason For Visit History Recorded Prescriptions as of 12/07/2019 Sig: XELJANZ XR 11 MG TABLET,EXTEN* Take 1 tablet by mouth once d* ETONOGESTREL 0.12 MG-ETHINYL * Use 1 Each vaginally as direc* IBUPROFEN 600 MG TABLET Take 1 tablet by mouth every * PROMETHAZINE 25 MG TABLET Take 1 tablet by mouth every * ONDANSETRON 4 MG DISINTEGRATI* TAKE 1 TABLET BY MOUTH EVERY * ERGOCALCIFEROL (VITAMIN D2) 1* TAKE 1 CAPSULE BY MOUTH ONE T* CYANOCOBALAMIN (VIT B-12) 1,0* Inject 1 mL intramuscularly o* EPIPEN INJECTION Inject 1 Pen intramuscularly * MONTELUKAST 10 MG TABLET Take 10 mg by mouth once adrian* SPIRONOLACTONE 100 MG TABLET Take 100 mg by mouth once taj* ALBUTEROL INHALATION Inhale as instructed. Problem List As Of Date 12/07/2019 Noted Resolved Rheumatoid arthritis (HCC) [M06.9] Long-term use of immunosuppressant medication [* Antinuclear antibody (YOHAN) titer greater than 1* Rheumatoid arthritis of multiple sites with neg*02/19/2017 More... Slow transit constipation [K59.01] 04/04/2019 Generalized abdominal pain [R10.84] 04/04/2019 RUQ pain [R10.11] 09/29/2019 Acalculous cholecystitis [K81.9] 09/29/2019 GERD (gastroesophageal reflux disease) [K21.9] 10/25/2019 More... Asthma [J45.909] 10/25/2019 More... PFO (patent foramen ovale) [Q21.1] 10/25/2019 More... Acute cholecystitis with chronic cholecystitis *10/25/2019 Encounter Status:Closed by RIK ADMISSIONS CONSULTANTJURGEN on 12/07/19 [facility] PROGRESSon 12-07-2019 PROGRESS HNO ID: [id number] Author: Cricket Evans Service: ? Author Type: Physician Type: Progress Notes Filed: 12/07/2019 7:52 AM Note Text: Subjective This Team Access Model visit is a virtual encounter. It required patient-provider interaction for the medical decision making as documented below. A phone visit telemedicine visit was substituted for a protocol-required in-person visit because of the recent COVID-19 pandemic which has caused disruption in normal operations spanning access to care, medical treatment, medications, etc. This phone or virtual visit was conducted to prevent exposure of the patient to the virus and to optimize the patient's safety that comes with inherent limitations of a phone encounter. HPI: Michelle Mauricio is a 33 year old female who presents with seronegative rheumatoid is here for follow-up. She is on Actemra subcu weekly but is forgetting to take her doses, last dose was 3 weeks ago. Her pain is 4/10 in the hands. She has swelling in the knuckles. Stiffness in the morning is 45 minutes to an hour. She denies any recent infections. She has had a TB skin test at work around 2 months ago. She wants to change biologic therapy to her daily pill so she can remember to take it on a regular basis. She had acute cholecystitis and had laparoscopic cholecystectomy in October 2019. Actemra has worked well for her in the past. She was taking it every other week prior to her last visit because she was concerned about leukopenia on her blood work. She's had nausea with methotrexate in the past. 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 She was given high dose steroids visit with improvement in facial droop. She has mild fatigue. Sicca symptoms are stable. She's been on actemra since November 2016. She's on control. She's failed Humira and simponi Aria in the past. She's tried and failed multiple NSAIDs in the past. She failed methotrexate and Plaquenil in the past and wants to hold off on taking methotrexate as she's concerned about side effects. Recent YOHAN was 1:320 but all other serologies were negative. She has a strong family history of MS and rheumatoid. New patient May 2015 29-year-old pleasant lady with inflammatory polyarthropathy? Versus history of rheumatoid is here for evaluation. Her pain today is 4/10 in her hands and feet. Symptoms are worse in the morning with stiffness lasting one to one and a half hours. She's had symptoms for the last 8 years. She has some swelling in her hands and feet. She also has pain in her wrists, elbows and knees. Occasional she gets some pain in the right hip but believes it's from an injury. She recalls getting injections in her wrists as a teenager but was not diagnosed with rheumatoid at that time. She takes Advil 4 tablets a day which helps some. In the past she's tried other tnkb-[id number]-vfie oxen, Lodine, Voltaren, Daypro. She has been given methotrexate which she took for a year and discontinued August 2014. She was on Plaquenil for 8 years and also discontinued Plaquenil in August 2014. Plaquenil seemed to help in the beginning but stopped working later .Methotrexate seemed to help some but not completely and she just did not like being on it. She is a history of positive YOHAN and elevated ESR-no records available. She has fatigue and dry eyes. She has a strong family history of rheumatoid arthritis affecting her mother and grandmother. She has a family history of MS affecting 3 of her aunts. She's a history of asthma. She gets an echocardiogram every 3 years has she has a heart murmur and a PFO. She works full-time, she has 2 children. She has an IUD. PAST MEDICAL HISTORY Diagnosis Date - Antinuclear antibody (YOHAN) titer greater than 1:80 - Hypertension - Long-term use of immunosuppressant medication - Rheumatoid arthritis (HCC) PAST SURGICAL HISTORY Procedure Laterality Date - COLONOSCOPY 04/04/2019 Dr. Worthington-poor/inadequate prep. The prep is inadeqaute. Thick liquid stool seen throughout the colon. At least 30-40% of colonic wall was not well visualized. - EGD 07/25/2019 Dr. Worthington-acute gastritis. SB Bx-unremarkable. Antrum/fundus Bx-unremarkable, HP negative. Mid esophagus Bx-unremarkable. - EXTRACTION ERUPTED TOOTH/EXR - LAPAROSCOPIC APPENDECTOMY 2010 - LAPAROSCOPIC CHOLECYSTECTOMY 10/26/2019 lap liver biopsy - LAPAROSCOPY DIAGNOSTIC 02/06/2019 Ruptured vein - OOPHORECTOMY PARTIAL OR TOTAL Right 2018 Health Maintenance Procedures SPIROMETRY due on 2002 ANNUAL PCP TEAM CHRONIC DISEASE VISIT due on 2002 HIV SCREENING due on 2002 DTAP,TDAP,TD(1 - Tdap) due on 12/11/2003 PAP TESTING due on 2005 HPV TESTING due on 2014 INFLUENZA(1) due on 10/18/2019 Discussed health maintenance, including regular aerobic exercise, low fat diet, and periodic exams. Health Maintenance Immunizations Given Immunizations: There is no immunization history on file for this patient. Current Outpatient Medications Medication Sig - tofacitinib (XELJANZ XR) 11 mg Take 1 tablet by mouth once daily. - Etonogestrel-Ethinyl Estradiol (NUVARING) 0.12-0.015 mg/24 hr vaginal ring Use 1 Each vaginally as directed. Insert vaginally and leave in place for 3 consecutive weeks, then remove for 1 week. - ibuprofen (MOTRIN) 600 mg tablet Take 1 tablet by mouth every 6 hours as needed for Pain. - promethazine (PHENERGAN) 25 mg tablet Take 1 tablet by mouth every 6 hours as needed (for nausea). - ondansetron orally disintegrating (ZOFRAN ODT) 4 mg disintegrating tablet TAKE 1 TABLET BY MOUTH EVERY 8 HOURS NEEDED - ergocalciferol 50,000 unit capsule (VITAMIN D2, DRISDOL) TAKE 1 CAPSULE BY MOUTH ONE TIME A WEEK FOR 12 DOSES. - cyanocobalamin 1,000 mcg/mL Inject 1 mL intramuscularly once every month. - epinephrine (EPIPEN INJECTION) Inject 1 Pen intramuscularly as needed. - montelukast (SINGULAIR) 10 mg tablet Take 10 mg by mouth once daily. - spironolactone (ALDACTONE) 100 mg tablet Take 100 mg by mouth once daily. - ALBUTEROL INHALATION Inhale as instructed. No current facility-administered medications for this visit. ALLERGIES Allergen Reactions - Amoxicillin Shortness of Breath - Doxycycline Shortness of Breath - Piperacillin Anaphylaxis - Tazobactam Anaphylaxis - Tramadol Vomiting - Vancomycin Anaphylaxis FAMILY HISTORY Problem Relation Age of Onset - Arthritis Mother RA - Colon Cancer No Family History Social History Tobacco Use - Smoking status: Former Smoker Packs/day: 0.50 Years: 2.00 Pack years: 1.00 Types: Cigarettes Quit date: 2004 Years since quittin.8 - Smokeless tobacco: Never Used Substance Use Topics - Alcohol use: Not Currently Alcohol/week: 2.5 standard drinks Types: 1 Glasses of Wine (5oz) per week Comment: Occasionally; once a week - Drug use: No History Review: I have reviewed and modified as needed, the following during this visit: Allergies, Past Medical History, Past Surgical History, Past Family History, Past Social History. Review of Systems CONSTITUTIONAL: Negative for weight gain, weight loss, weakness, fever, falls. Positive for fatigue EYES: Negative for Eye Pain, Eye Redness, Reduced Vision, Diplopia, Blurred Vision, Dryness, Feels like something in Eye(s), Eye Itching NOSE, THROAT: Negative for frequent or significant headaches, No changes in hearing or vision, no nose bleeds or other nasal problems NECK: Negative for lumps, goiter, pain and significant neck swelling RESPIRATORY: Negative for cough, hemoptysis, wheezing or shortness of breath CARDIOVASCULAR: No chest pain, arrhythmia, palpitations, heart murmurs GI: No nausea, vomiting, or diarrhea : No history of dysuria, frequency or incontinence Kidney disease/stones: no MUSCULOSKELETAL: Negative formuscle weakness back pain. Positive for joint pain, positive for morning stiffness, positive for joint swelling SKIN: Negative for changes in the skin redness, easily bruising, pruritus, skin rash, malar rash, hives, sun sensitivity, tightness, nodules/bumps, hair loss, skin lesion, ulcerations, color changles of hands or feet in the cold. Negative for rash PSYCH: Negative for excessive worries, anxious, easily losing temper, feeling depressed, feeling agitated, diffuclty falling asleep, diffuclty staying asleep HEMATOLOGY/LYMPHOLOGY Negative for prolonged bleeding, bruising easily or swollen nodes ENDOCRINE: Negative for cold or heat intolerance, polyuria, polydipsia and goiter NEURO: Negative for headache, dizziness, syncope, muscle spasms, tingling, loss of consciousness, sensitivity or pain of hands and/or feet, memory loss, night sweats VIDEO EXAM: (performed via video enabled technology) GENERAL: Well appearing, alert, comfortable, in no acute distress,well nourished. Eyes: vision grossly intact Hearing -grossly intact HEENT: external ears normal. External nose normal, NECK: thyroid appears symmetric Neuro- Speech intact. No facial droop Musculoskeletal-difficul ty making tight fist with both hands, fullness second third MCPs in all PIPs bilaterally with tenderness over these joints Skin-no visible rash Orientation - Oriented to time, place, person AND situation. Appropriate mood and affect. Good insight. Good judgment. Office visit January 2019 There were no vitals taken for this visit. Physical Exam GENERAL: Well appearing, alert, comfortable, in no acute distress, well-hydrated, well nourished. HEENT: Negative for external ears normal. Canals are clear. Both TMs visualized and are normal. Eye Exam normal. External nose normal, no nasal ulcer or throat ulcer. NECK: NECK Supple, no adenopathy; thyroid symmetric, normal size, no bruits CARDIAC: regular rate and rhythm, No murmur asculated. and Equal peripheral pulses RESPIRATORY: Lungs clear to auscultation. No wheezing, rhonchi, rales VASCULAR: RRR without murmur, gallop, or rubs. No ectopy. ABDOMEN: Soft, non tender. BS active. No masses or organomegaly. LYMPHATIC: Negative for adenopathy in the neck, axillae, groin, supraclavicular and auricular. NEURO: Motor and sensory exam normal MOTOR: Normal; including tone, gait, stressed gait, power and coordination. SKIN: Negative for alopecia, skin rash, malar rash, skin lesion, skin ulcer, pits, thickening, color changes, telangiectasias, nail changes, nail ridging, nail pitting, onycholysis. Negative for rash MUSCULOSKELETAL: Mild tenderness bilateral second third MCP joints Bunion deformity bilateral first MTPs Serology: Rheumatoid factor negative, anti-CCP negative, YOHAN 1:320, double-stranded DNA negative, SSA and SSB negative, hepatitis panel negative, C3 and C4 normal. TB QuantiFERON negative Lab Results: October 2019 Creatinine 0.9 CRP normal CBC normal ESR 17 January 2019 Creatinine 0.96 Liver enzymes normal CBC normal ESR normal CRP normal August 2018 CBC with white count 3.8 ESR 1 CRP normal CMP normal July 2016 TB QuantiFERON negative Vectra score 20 Radiology Results: Imaging May 2015 X-ray hands normal X-ray feet normal X-ray wrists normal Assessment (M06.09) Rheumatoid arthritis of multiple sites with negative rheumatoid factor (HCC) (primary encounter diagnosis) (Z79.899) Long-term use of immunosuppressant medication (R76.0) Antinuclear antibody (YOHAN) titer greater than 1:80 (D72.819) Leukopenia, unspecified type (Z91.14) Noncompliance w/medication treatment due to intermit use of medication 33 -year-old pleasant lady with #1 seronegative rheumatoid-history of inflammatory polyarthritis-on actemra subcutaneous weekly with improvement but has been noncompliant with treatment with increased synovitis. In the past failed simponi Aria, Humira, methotrexate and Plaquenil . She has a strong family history of rheumatoid arthritis. Has been on actemra since November 2016-she's cut dose down to every other week last visit and more recently has missed several doses. Last dose 3 weeks ago #2 family history of rheumatoid affecting mother and grandmother #3 fatigue and dry eyes-mild #4strong family history of MS affecting three of her aunts #5 nmkonxjtmctw-efmxsbfn-kx s been on Aldactone for acne which may be helping. 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 She has cut down actemra dose because of her leukopenia. 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 Information given Can discontinue Actemra after starting Xeljanz Discussed risks of Xeljanz in detail Recommend compliance with medication She has had mild intermittent leukopenia in the past-continue to monitor blood counts She is currently on control with IUD-we will need to discontinue Xeljanz if considering Can use prednisone for any acute flares but avoid regular use History of nausea with methotrexate-continue to hold off on DMARD Blood work to monitor medication and disease activity every 3 months Obtain most recent PPD test to screen for TB done at work 2 months ago Follow-up in 3 months [facility] on 12/07/19 - CBC + DIFF - COMP METABOLIC PANEL - C-REACTIVE PROTEIN (CRP) - SED RATE WESTERGREN Return if symptoms worsen or fail to improve. Cricket Evans MD [facility] PROGRESSon 10-27-2019 PROGRESS HNO ID: [id number] Author: Cricket Evans Service: ? Author Type: Physician Type: Progress Notes Filed: 10/27/2019 2:11 PM Note Text: Subjective This Team Access Model visit is a virtual encounter. It required patient-provider interaction for the medical decision making as documented below. A phone visit telemedicine visit was substituted for a protocol-required in-person visit because of the recent COVID-19 pandemic which has caused disruption in normal operations spanning access to care, medical treatment, medications, etc. This phone or virtual visit was conducted to prevent exposure of the patient to the virus and to optimize the patient's safety that comes with inherent limitations of a phone encounter. HPI: Michelle Mauricio is a 33 year old female who presents with seronegative rheumatoid is here for follow-up. She had acute cholecystitis and had laparoscopic surgery yesterday. She has recovered well from surgery. She denies much pain today as she is on pain medications for her surgery. She usually has pain 1/10 in her hands. She has no swelling. She denies much morning stiffness. She has been doing actemra subcutaneous every other week as she has been concerned about her white count and neutrophil count being slightly low. She denies any recent infections. Actemra continues to work well for her and she hasn't noticed any difference in symptoms with lowering frequency of actemra. She's had nausea with methotrexate in the past. 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 She was given high dose steroids visit with improvement in facial droop. She has mild fatigue. Sicca symptoms are stable. She's had mild leukopenia on blood work in the past. She's been on actemra since November 2016. She's on control. She's failed Humira and simponi Aria in the past. She's tried and failed multiple NSAIDs in the past. She failed methotrexate and Plaquenil in the past and wants to hold off on taking methotrexate as she's concerned about side effects. Recent YOHAN was 1:320 but all other serologies were negative. She has a strong family history of MS and rheumatoid. New patient May 2015 29-year-old pleasant lady with inflammatory polyarthropathy? Versus history of rheumatoid is here for evaluation. Her pain today is 4/10 in her hands and feet. Symptoms are worse in the morning with stiffness lasting one to one and a half hours. She's had symptoms for the last 8 years. She has some swelling in her hands and feet. She also has pain in her wrists, elbows and knees. Occasional she gets some pain in the right hip but believes it's from an injury. She recalls getting injections in her wrists as a teenager but was not diagnosed with rheumatoid at that time. She takes Advil 4 tablets a day which helps some. In the past she's tried other jvcm-pkofbtbbhwztgr-frnt oxen, Lodine, Voltaren, Daypro. She has been given methotrexate which she took for a year and discontinued August 2014. She was on Plaquenil for 8 years and also discontinued Plaquenil in August 2014. Plaquenil seemed to help in the beginning but stopped working later .Methotrexate seemed to help some but not completely and she just did not like being on it. She is a history of positive YOHAN and elevated ESR-no records available. She has fatigue and dry eyes. She has a strong family history of rheumatoid arthritis affecting her mother and grandmother. She has a family history of MS affecting 3 of her aunts. She's a history of asthma. She gets an echocardiogram every 3 years has she has a heart murmur and a PFO. She works full-time, she has 2 children. She has an IUD. PAST MEDICAL HISTORY Diagnosis Date - Antinuclear antibody (YOHAN) titer greater than 1:80 - Hypertension - Long-term use of immunosuppressant medication - Rheumatoid arthritis (HCC) PAST SURGICAL HISTORY Procedure Laterality Date - COLONOSCOPY 04/04/2019 Dr. Worthington-poor/inadequate prep. The prep is inadeqaute. Thick liquid stool seen throughout the colon. At least 30-40% of colonic wall was not well visualized. - EGD 07/25/2019 Dr. Worthington-acute gastritis. SB Bx-unremarkable. Antrum/fundus Bx-unremarkable, HP negative. Mid esophagus Bx-unremarkable. - EXTRACTION ERUPTED TOOTH/EXR - LAPAROSCOPIC APPENDECTOMY 2010 - LAPAROSCOPIC CHOLECYSTECTOMY 10/26/2019 lap liver biopsy - LAPAROSCOPY DIAGNOSTIC 02/06/2019 Ruptured vein - OOPHORECTOMY PARTIAL OR TOTAL Right 2018 Health Maintenance Procedures SPIROMETRY due on 2002 ANNUAL PCP TEAM CHRONIC DISEASE VISIT due on 2002 HIV SCREENING due on 2002 DTAP,TDAP,TD(1 - Tdap) due on 12/11/2003 PAP TESTING due on 2005 HPV TESTING due on 2014 INFLUENZA(1) due on 10/18/2019 Discussed health maintenance, including regular aerobic exercise, low fat diet, and periodic exams. Health Maintenance Immunizations Given Immunizations: There is no immunization history on file for this patient. Current Outpatient Medications Medication Sig - oxyCODONE IR (ROXICODONE) 5 mg immediate release tablet Take 1 tablet by mouth every 6 hours as needed for Pain for up to 3 days. - ibuprofen (MOTRIN) 600 mg tablet Take 1 tablet by mouth every 6 hours as needed for Pain. - promethazine (PHENERGAN) 25 mg tablet Take 1 tablet by mouth every 6 hours as needed (for nausea). - ondansetron orally disintegrating (ZOFRAN ODT) 4 mg disintegrating tablet TAKE 1 TABLET BY MOUTH EVERY 8 HOURS NEEDED - ergocalciferol 50,000 unit capsule (VITAMIN D2, DRISDOL) TAKE 1 CAPSULE BY MOUTH ONE TIME A WEEK FOR 12 DOSES. - cyanocobalamin 1,000 mcg/mL Inject 1 mL intramuscularly once every month. - epinephrine (EPIPEN INJECTION) Inject 1 Pen intramuscularly as needed. - montelukast (SINGULAIR) 10 mg tablet Take 10 mg by mouth once daily. - spironolactone (ALDACTONE) 100 mg tablet Take 100 mg by mouth once daily. - ALBUTEROL INHALATION Inhale as instructed. No current facility-administered medications for this visit. ALLERGIES Allergen Reactions - Amoxicillin Shortness of Breath - Doxycycline Shortness of Breath - Piperacillin Anaphylaxis - Tazobactam Anaphylaxis - Tramadol Vomiting - Vancomycin Anaphylaxis FAMILY HISTORY Problem Relation Age of Onset - Arthritis Mother RA - Colon Cancer No Family History Social History Tobacco Use - Smoking status: Former Smoker Packs/day: 0.50 Years: 2.00 Pack years: 1.00 Types: Cigarettes Quit date: 2004 Years since quittin.7 - Smokeless tobacco: Never Used Substance Use Topics - Alcohol use: Not Currently Alcohol/week: 2.5 standard drinks Types: 1 Glasses of Wine (5oz) per week Comment: Occasionally; once a week - Drug use: No History Review: I have reviewed and modified as needed, the following during this visit: Allergies, Past Medical History, Past Surgical History, Past Family History, Past Social History. Review of Systems CONSTITUTIONAL: Negative for weight gain, weight loss, weakness, fever, falls. Positive for fatigue EYES: Negative for Eye Pain, Eye Redness, Reduced Vision, Diplopia, Blurred Vision, Dryness, Feels like something in Eye(s), Eye Itching NOSE, THROAT: Negative for frequent or significant headaches, No changes in hearing or vision, no nose bleeds or other nasal problems NECK: Negative for lumps, goiter, pain and significant neck swelling RESPIRATORY: Negative for cough, hemoptysis, wheezing or shortness of breath CARDIOVASCULAR: No chest pain, arrhythmia, palpitations, heart murmurs GI: No nausea, vomiting, or diarrhea : No history of dysuria, frequency or incontinence Kidney disease/stones: no MUSCULOSKELETAL: Negative formuscle weakness back pain. Positive for joint pain, negative for morning stiffness, negative for joint swelling SKIN: Negative for changes in the skin redness, easily bruising, pruritus, skin rash, malar rash, hives, sun sensitivity, tightness, nodules/bumps, hair loss, skin lesion, ulcerations, color changles of hands or feet in the cold. Negative for rash PSYCH: Negative for excessive worries, anxious, easily losing temper, feeling depressed, feeling agitated, diffuclty falling asleep, diffuclty staying asleep HEMATOLOGY/LYMPHOLOGY Negative for prolonged bleeding, bruising easily or swollen nodes ENDOCRINE: Negative for cold or heat intolerance, polyuria, polydipsia and goiter NEURO: Negative for headache, dizziness, syncope, muscle spasms, tingling, loss of consciousness, sensitivity or pain of hands and/or feet, memory loss, night sweats VIDEO EXAM: (performed via video enabled technology) GENERAL: Well appearing, alert, comfortable, in no acute distress,well nourished. Eyes: vision grossly intact Hearing -grossly intact HEENT: external ears normal. External nose normal, NECK: thyroid appears symmetric Neuro- Speech intact. No facial droop Musculoskeletal- Able to make a tight fist with both hands. Good range of motion shoulders Orientation - Oriented to time, place, person AND situation. Appropriate mood and affect. Good insight. Good judgment. Office visit January 2019 There were no vitals taken for this visit. Physical Exam GENERAL: Well appearing, alert, comfortable, in no acute distress, well-hydrated, well nourished. HEENT: Negative for external ears normal. Canals are clear. Both TMs visualized and are normal. Eye Exam normal. External nose normal, no nasal ulcer or throat ulcer. NECK: NECK Supple, no adenopathy; thyroid symmetric, normal size, no bruits CARDIAC: regular rate and rhythm, No murmur asculated. and Equal peripheral pulses RESPIRATORY: Lungs clear to auscultation. No wheezing, rhonchi, rales VASCULAR: RRR without murmur, gallop, or rubs. No ectopy. ABDOMEN: Soft, non tender. BS active. No masses or organomegaly. LYMPHATIC: Negative for adenopathy in the neck, axillae, groin, supraclavicular and auricular. NEURO: Motor and sensory exam normal MOTOR: Normal; including tone, gait, stressed gait, power and coordination. SKIN: Negative for alopecia, skin rash, malar rash, skin lesion, skin ulcer, pits, thickening, color changes, telangiectasias, nail changes, nail ridging, nail pitting, onycholysis. Negative for rash MUSCULOSKELETAL: Mild tenderness bilateral second third MCP joints Bunion deformity bilateral first MTPs Serology: Rheumatoid factor negative, anti-CCP negative, YOHAN 1:320, double-stranded DNA negative, SSA and SSB negative, hepatitis panel negative, C3 and C4 normal. 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 In the past failed simponi Aria, Humira, methotrexate and Plaquenil . She has a strong family history of rheumatoid arthritis. Has been on actemra since November 2016-she's cut dose down to every other week and continues to stay stable #2 family history of rheumatoid affecting mother and grandmother #3 fatigue and dry eyes-mild symptoms but stable #4strong family history of MS affecting three of her aunts #5 pktnqztxumfs-yrinfllo-as s been on Aldactone for acne which may be helping. 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 She's had low white count even prior to treatment in the past hence may be secondary to autoimmune disease Explained this in detail the patient-she wants to continue actemra for now She is on control but may be planning in the future. She wants to know if she should change biologic therapy at that time. At that time can switch to TNF hector. Continue control use-she has IUD placed Prednisone for acute flares Blood work to monitor medication and disease activity prior to next visit History of nausea with methotrexate-continue to hold off on DMARD Follow-up in 4 months Plan No orders found for this visit on 10/27/19. Return in about 4 months (around 02/26/2020). Cricket Evans MD [facility] ANES POSTPROC EVALon 020 ANES POSTPROC EVAL HNO ID: [id number] Author: Kirstin Machado Service: ? Author Type: Anesthesiologist Type: Anesthesia Postprocedure Evaluation Filed: 10/26/2019 4:36 PM Note Text: POST ANESTHESIA EVALUATION NOTE : 1985 Procedure Summary Date: 10/26/19 Room / Location: OR / [facility] OR Anesthesia Start: 1449 Anesthesia Stop: 1631 Procedures: LAPAROSCOPIC CHOLECYSTECTOMY (N/A Gallbladder) LAPAROSCOPIC BIOPSY LIVER (N/A Abdomen) Diagnosis: Acute cholecystitis with chronic cholecystitis (Acute cholecystitis with chronic cholecystitis [K81.2]) Surgeons: Marko Almaraz Responsible Provider: Kirstin Machado Anesthesia Type: general ASA Status: 1 Anesthesia Type: general Last vitals Vitals Value Taken Time BP 127/78 10/26/19 1631 Temp 36.2 ?C (97.2 ?F) 10/26/19 1630 Pulse 80 10/26/19 1635 Resp 20 10/26/19 1635 SpO2 100 % 10/26/19 1635 Vitals shown include unvalidated device data. Post Anesthesia Patient Status Patient Evaluation: PACU. Neurological Status: aware and responsive. Pulmonary Status: breathing comfortably on room air Airway Control: returned to baseline unsupported. Cardiovascular Status: stable. Pain Management: clinically adequate Postoperative Hydration: acceptable. Recommendation: continue current plan of care. SIGNATURE: Kirstin Machado MD PATIENT NAME: Michelle Mauricio DATE: October 26, 2019 TIME: 4:36 PM CSN: [id number] [facility] ANES PRE-OPon 10-26-2019 ANES PRE-OP HNO ID: [id number] Author: Gato Alexis Service: ? Author Type: Anesthesiologist Type: Anesthesia Preprocedure Evaluation Filed: 10/26/2019 2:03 PM Note Text: ANESTHESIOLOGY DAY OF SURGERY NOTE : 1985 Procedure(s) (LRB): LAPAROSCOPIC CHOLECYSTECTOMY (N/A) LAPAROSCOPIC BIOPSY LIVER (N/A) Surgeon(s): Marko Almaraz Estimated body mass index is 21.59 kg/m? as calculated from the following: Height as of 10/19/19: 172.7 cm (5' 8). Weight as of 10/19/19: 64.4 kg (142 lb). Most recent hematocrit and potassium results: Hematocrit 44.4 10/19/2019 Potassium 3.9 10/19/2019 Relevant Problems GI (+) GERD (gastroesophageal reflux disease) PULMONARY (+) Asthma Other (+) Rheumatoid arthritis (HCC) (+) Rheumatoid arthritis of multiple sites with negative rheumatoid factor (HCC) I - PHYSICAL EVALUATION AIRWAY Patient intubated: No. Tracheostomy tube not present Mallampati: I. TM distance: >3 FB. Neck ROM: full ROM without neurological symptoms. Mouth opening: adequate. DENTAL Normal dental observations. Dental findings: teeth intact. II - ANESTHESIA PLAN ASA Score: 1 Anesthetic Plan: general Airway type: ETT The patient is not a current smoker. NPO Status: adequate Monitoring plan: standard ASA. Postoperative analgesic plan: multimodal analgesia and per surgical service. Anesthetic Risks, Benefits, Alternatives, Personnel Discussed. Consent obtained from: patient. Patient / Surrogate agrees to blood products: Yes Significant changes in the patient condition since the History and Physical, not otherwise documented in primary service progress note: no. Potential Anesthesia issues that may suggest increased risk of complications or contraindication to planned procedure: none. No vitals data found for the desired time range. Facility-Administered Medications as of 10/26/2019 Medication Dose Route Frequency - lidocaine 10 mg/mL (1 %) 1-2 mg injection (XYLOCAINE) 0.1-0.2 mL INTRADERMAL PRN - lactated ringers infusion 5-30 mL/hr INTRAVENOUS CONTINUOUS - heparin 5,000 Units injection 5,000 Units SUBCUTANEOUS Pre-Op Once - clindamycin iv piggyback 900 mg in D5W 50 mL (CLEOCIN) 900 mg INTRAVENOUS Pre-Op Once - acetaminophen 1,000 mg tab(s) (TYLENOL) 1,000 mg ORAL Pre-Op Once - promethazine 12.5 mg tab(s) (PHENERGAN) 12.5 mg ORAL Pre-Op Once - scopolamine 1 mg over 3 days 1 Patch (TRANSDERM-SCOP) 1 Patch TRANSDERMAL ONCE - [START ON 10/27/2019] scopolamine - REMOVE PATCH OTHER q 72 HR And - scopolamine - VERIFY patch OTHER q 8 H - acetaminophen 1,000 mg tab(s) (TYLENOL) 1,000 mg ORAL Pre-Op Once - promethazine 12.5 mg tab(s) (PHENERGAN) 12.5 mg ORAL Pre-Op Once - lactated ringers infusion 30 mL/hr INTRAVENOUS CONTINUOUS Outpatient Medications as of 10/26/2019 Medication Sig - promethazine (PHENERGAN) 25 mg tablet Take 1 tablet by mouth every 6 hours as needed (for nausea). - cyanocobalamin 1,000 mcg/mL Inject 1 mL intramuscularly once every month. - montelukast (SINGULAIR) 10 mg tablet Take 10 mg by mouth once daily. - spironolactone (ALDACTONE) 100 mg tablet Take 100 mg by mouth once daily. - ondansetron orally disintegrating (ZOFRAN ODT) 4 mg disintegrating tablet TAKE 1 TABLET BY MOUTH EVERY 8 HOURS NEEDED - ergocalciferol 50,000 unit capsule (VITAMIN D2, DRISDOL) TAKE 1 CAPSULE BY MOUTH ONE TIME A WEEK FOR 12 DOSES. - epinephrine (EPIPEN INJECTION) Inject 1 Pen intramuscularly as needed. - ALBUTEROL INHALATION Inhale as instructed. I have interviewed and examined the patient. I have reviewed the medical record and/or the pre-anesthesia evaluation, pertinent labs, and test results. This contains updated information obtained within 48 hours of Surgery/Procedure. SIGNATURE: Gato Espinoza MD PATIENT NAME: Michelle Mauricio DATE: October 26, 2019 TIME: 2:02 PM CSN: [id number] [facility] NURSING PROGon 10-26-2019 NURSING PROG HNO ID: [id number] Author: Narayan ZuritaRn) JAVIER Sanabria Service: ? Author Type: Registered Nurse Type: Nursing Progress Note Filed: 10/26/2019 1:41 PM Note Text: PATIENT EDUCATION TOPIC: PROCEDURE / SURGERY: Pre-op Teaching: Surgical Safety Principles PATIENT NAME: Michelle Mauricio PATIENT LOCATION: [facility] OR POOL/[facility] OR POOL READINESS TO LEARN COGNITIVE ABILITY: Alert and oriented MOTIVATION TO LEARN: Eager FAMILY SUPPORT: Unable to assess - Family not present INSTRUCTION PROVIDED TO: Patient PATIENT LEARNS BEST BY: Verbal Instruction FACTORS AFFECTING LEARNING: None PHYSICAL LIMITATIONS AFFECTING LEARNING: None LEARNING RESPONSE DIAGNOSIS: ADULT: Well Adult PATIENT/FAMILY RESPONSE: Verbalizes understanding of: PRE-OPERATIVE INSTRUCTIONS-Correct action to take to follow pre-operative instructions METHOD OF INSTRUCTION: Verbal instruction FOLLOW-UP PLAN: Complete - No need for follow-up INSTRUCTIONAL AIDS USED: NA SUPPLEMENTAL MATERIAL PROVIDED TO PATIENT: None REFERRAL (RECOMMENDATION): None Electronically Signed By: Narayan Sanabria RN [facility] OPERATIVE NOon 10-26-2019 OPERATIVE NO HNO ID: [id number] Author: Marko Almaraz Service: General Surgery Author Type: Physician Type: Operative Report Filed: 10/26/2019 10:57 PM Note Text: OPERATIVE REPORT LOG ID: [id number] SURGERY DATE: 10/26/2019 Incision/Procedure Start Time: 3:16 PM Incision Close/Procedure End Time: 4:19 PM Pre-Operative Diagnosis: Right upper quadrant pain; Chronic Acalculous Cholecystitis Post-Operative Diagnosis: Same Procedure Performed: Laparoscopic cholecystectomy; laparoscopic liver biopsy Surgeon(s)/Proceduralist (s) and Steam Shovel Oiler(s): Surgeon(s) and Role: * Marko Almaraz - Primary * Trev (Res) Sandra - Resident - Assisting No Additional Staff Anesthesia: General Estimated Blood Loss: 5 mls Drains: None Specimen: Gallbladder; liver biopsy Complications: None Disposition: Satisfactory to PACU Surgical Findings: Mildly dilated gallbladder; normal appearing liver; normal small bowel Operative Indications: This is a 33 year old female with the above diagnosis who presents for an elective cholecystectomy. Please see office record for surgical indications. Procedure and risks were discussed, including risks of bleeding, infection, possible bowel or bile duct injury, possible conversion to open procedure. she understood and wished to proceed. Operative Procedure: Sign-in was undertaken in the holding area. Antibiotics and DVT prophylaxis were confirmed. The patient was brought to the operating room, where general anesthesia was achieved. The abdomen was prepped and draped widely. Audible time-out was taken. Local anesthetic was infiltrated and a periumbilical incision created and carried down to the fascia, which was elevated and incised vertically. The peritineum was carefully elevated and incised and the Chance trocar was held in place with 0 Vicryl suture. CO2 insufflation was achieved. The laparoscope was inserted and 5-mm trocars placed in the epigastrium and right upper quadrants. The gallbladder was grasped and elevated above the liver. The gallbladder appeared mildly dilated. The liver appeared normal. Minor Omental adhesions were taken down with cold scissor technique. The infundibulum was seen and retracted laterally and inferiorly. Dissection revealed its junction with the cystic duct and the cystic artery was dissected as well. It was clear that only two structures were entering the gallbladder. Due to normal liver function tests and clear anatomy, a cholangiogram was not performed. The cystic duct was clipped x2 proximally, and x1 distally and divided. The cystic artery was double clipped, proximally, singly clipped distally and divided. The loose areolar tissue between the gallbladder and the liver was taken down with the hook and cautery. The gallbladder was from the liver and placed in the EndoCatch bag and brought out through the umbilical trocar site. Next, the 18 gauge NearWoo core biopsy device was guided through the epigastric trocar, and two biopsies taken from the right lobe of the liver. Minor bleeding was controlled with cautery. The laparoscope was then turned inferiorly, and the terminal ileus was inspected for a distance of 2-3 feet. It was completely normal. No other obvious pathology was visualized in the pelvis. Saline irrigation was performed and this was aspirated. There was no evidence of ongoing bleeding and no evidence of bile staining. There was no evidence of visceral injury. The 5-mm trocars were removed without difficulty. The abdomen was desufflated and the Chance cannula removed. The fascia of the initial site was closed with a figure eight 0 Vicryl suture. The wound was irrigated with local anesthetic and closed in layers with 3-0 Vicryl. The 5-mm sites were clsoed with 4-0 Monocryl. The wounds were washed and dried and Exofin glue was applied. After a correct sponge, instrument, and needle count, the patient was awakened, extubated and taken to the recovery room in good condition. I/primary surgeon/proceduralist performed the procedure with assistance. SIGNATURE: Marko Almaraz MD PATIENT NAME: Michelle Mauricio DATE: October 26, 2019 TIME: 10:50 PM [facility] PT EDon 10-26-2019 PT ED HNO ID: [id number] Author: Edilma ZuritaRn) JAVIER Ley Service: Nursing Author Type: Registered Nurse Type: Patient Education Filed: 10/26/2019 6:20 PM Note Text: PATIENT EDUCATION TOPIC: PROCEDURE / SURGERY: Post-op Teaching: Med Administration, Symptom Management and Wound Care PATIENT NAME: Michelle Mauricio PATIENT LOCATION: [facility] OR POOL/[facility] OR POOL READINESS TO LEARN COGNITIVE ABILITY: Alert and oriented MOTIVATION TO LEARN: Eager FAMILY SUPPORT: Unable to assess - Family not present INSTRUCTION PROVIDED TO: Patient PATIENT LEARNS BEST BY: Written Instruction - Hand-outs Verbal Instruction FACTORS AFFECTING LEARNING: None PHYSICAL LIMITATIONS AFFECTING LEARNING: None LEARNING RESPONSE DIAGNOSIS: ADULT: Well Adult PATIENT/FAMILY RESPONSE: Information received as demonstrated by interest and questions METHOD OF INSTRUCTION: Written instruction - handouts Verbal instruction FOLLOW-UP PLAN: Complete - No need for follow-up INSTRUCTIONAL AIDS USED: NA SUPPLEMENTAL MATERIAL PROVIDED TO PATIENT: None REFERRAL (RECOMMENDATION): None Electronically Signed By: Edilma Ley RN [facility] INR Coag (Bld) [Relative time] HNO ID: [id number] Author: Edilma ZuritaRnJolanta Ley RN Service: Nursing Author Type: Registered Nurse Type: Patient Education Filed: 10/26/2019 6:03 PM Note Text: [facility] RETURN TO WORK/SCHOOL To whom it may concern: This is to certify that Michelle Mauricio was seen in the [facility] on October 26, 2019. Michelle is ok to return to wokr on Thursday, October 30. Sincerely, Edilma Ley RN BSN CMSRN October 26, 2019 [facility] PT ED HNO ID: [id number] Author: Edilma ZuritaRnJolanta Ley RN Service: Nursing Author Type: Registered Nurse Type: Patient Education Filed: 10/26/2019 6:00 PM Note Text: Scopolamine Transdermal Patch URL of this page: http://www.nlm.nih.gov/m edlineplus/druginfo/meds /b915825.html Why is this medication prescribed? Scopolamine is used to prevent nausea and vomiting caused by motion sickness. This medication is sometimes prescribed for other uses; ask your doctor or pharmacist for more information. How should this medicine be used? Scopolamine comes as a patch to be placed on the skin behind your ear. Apply one patch to a clean, dry, hairless area behind the ear. The patch should be applied at least 4 hours before its effects will be needed. Each patch is good for 3 days. Follow the directions on your prescription label carefully, and ask your doctor or pharmacist to explain any part you do not understand. Use the scopolamine patch exactly as directed. To apply the patch, follow the directions provided by the business development and these steps: 1. After washing the area behind the ear, wipe the area with a clean, dry tissue to ensure that the area is dry. 2. Remove the patch from its protective pouch. To expose the adhesive surface of the patch, the clear plastic protective strip should be peeled off and discarded. Contact with the exposed adhesive layer should be avoided to prevent contamination of fingers with scopolamine. Temporary blurred vision and dilation of the pupils may result if scopolamine comes into contact with your eyes. 3. Place the adhesive side against the skin. 4. Press the patch firmly for 10 to 20 seconds. Be sure that the edges adhere to your skin. 5. After you have placed the patch behind your ear, wash your hands thoroughly. At the end of 3 days, or when the scopolamine patch is no longer needed, (usually the day after surgery) remove the patch and throw it away. Wrap the patch in tissue or paper to avoid exposing anyone else to the remaining medication. Wash your hands and the area behind your ear thoroughly to remove any traces of scopolamine from the area. If a new patch needs to be applied, place a fresh patch on the hairless area behind your other ear. What special precautions should I follow before using scopolamine patches? tell your doctor and pharmacist if you are allergic to scopolamine or any other drugs. tell your doctor and pharmacist what prescription and nonprescription medications you are taking, especially medications that decrease mental alertness; cough, cold, and allergy products; and vitamins. tell your doctor if you have or have ever had glaucoma; heart, liver, or kidney disease; stomach or intestinal obstruction; or difficulty urinating. tell your doctor if you are , plan to become , or are breast-feeding. If you become while using scopolamine patches, call your doctor immediately. if you are having surgery, including dental surgery, tell the doctor or dentist that you are using scopolamine patches. you should know that this drug may make you drowsy. Do not drive a car or operate machinery until you know how scopolamine patches will affect you. This is especially important during the first 3 to 5 days of therapy and when your dose is increased. talk to your doctor about the safe use of alcohol while taking this drug. Alcohol increases the side effects caused by scopolamine patches. What should I do if I forget a dose? Apply the missed patch as soon as you remember it. Do not apply more than one patch at a time. What side effects can this medication cause? Scopolamine patches may cause side effects. Tell your doctor if any of these symptoms are severe or do not go away: drowsiness disorientation dry mouth blurred vision dilated pupils confusion hallucinations difficulty urinating rash If you experience any of the following symptoms, remove the patch and call your doctor immediately: eye pain dizziness rapid pulse What should I know about storage and disposal of this medication? Keep this medication in the container it came in, tightly closed, and out of reach of children. Store it at room temperature and away from excess heat and moisture (not in the bathroom). Throw away any medication that is outdated or no longer needed. Talk to your pharmacist about the proper disposal of your medication. In case of emergency/overdose In case of overdose, call your local poison control center at . If the victim has collapsed or is not breathing, call local emergency services at 217. What other information should I know? Keep all appointments with your doctor and the laboratory. The patch is not affected by limited exposure to water during bathing or swimming. Do not let anyone else use your medication. Ask your pharmacist any questions you have about refilling your prescription. It is important for you to keep a written list of all of the prescription and nonprescription (ruqh-xgy-[id number]) medicines you are taking, as well as any products such as vitamins, minerals, or other dietary supplements. You should bring this list with you each time you visit a doctor or if you are admitted to a hospital. It is also important information to carry with you in case of emergencies. Brand names Transderm Scop? Other names Transdermal scopolamine AHFS? Consumer Medication Information. ? Copyright, 2014. [employer] [address] [facility], [place], [place]. All Rights Reserved. Duplication for commercial use must be authorized by [facility]. Patient/ family Nurse Date/ time Normal [facility] SURGICAL PATHOLOGYon 020 SURGICAL PATHOLOGY Specimen originated from [facility] Specimen #: [id number] Submitting Physician: Marko Almaraz M.D. __ FINAL DIAGNOSIS 1. Gallbladder, cholecystectomy (A) - Chronic cholecystitis. 2. Liver, biopsy (B) - Liver parenchyma with no significant diagnostic alteration, see comment. ROBERT/kr 10/31/2019 COMMENT 2. The liver parenchyma shows preserved architecture with mild sinusoidal congestion in centrizonal regions. There is no significant steatosis or cholestasis. Swollen hepatocytes, Ada's hyaline or acidophil bodies are not seen. There is no portal or lobular inflammation. The bile ducts are unremarkable. There is prominence of central veins and portal veins without herniation or obliteration. The hepatic arteries are intact. No significant iron deposition is seen on the iron stain. PAS/D stain does not reveal diagnostic alpha-1 antitrypsin inclusions. The trichrome stain does not show evidence of fibrosis. Karen Tavares M.D. (Electronic Signature) SPECIMEN SUBMITTED A: GALLBLADDER B: LIVER, BIOPSY CLINICAL DATA ACUTE AND CHRONIC CHOLECYSTITIS; LAPAROSCOPIC CHOLECYSTECTOMY GROSS DESCRIPTION A. Received in formalin designated gallbladder is a gallbladder that measures 6 x 3 x 2 cm. The serosal surface if castañeda-carranza and smooth. The cystic duct measures 0.1 cm in length and 0.4 cm in diameter. Within the gallbladder is castañeda viscous bile. There are no calculi within the gallbladder or compacting the cystic duct. The gallbladder mucosa is castañeda and velvety with a wall thickness of 0.1 cm. Attenuator sections are submitted in one cassette. WE/kr 10/27/2019 B. Received in formalin designated liver biopsy is a castañeda cylindrical fragment of soft tissue measuring 2 cm in length and 0.1 cm in diameter. The specimen is entirely filtered in one cassette. WE/rw 10/27/2019 Gross examination performed at [facility], [address] [place] [address] Date of Report: 11/01/2019 Date of Procedure: 10/26/2019 Date of Receipt: 10/27/2019 Submitted by: Marko Almaraz M.D. Location: [facility] Diagnostic interpretation performed at [facility], [address] [place] [address]. [place] Number: [id number] Normal [facility] NURSING PROGon 10-25-2019 NURSING PROG HNO ID: [id number] Author: Luisa Britton (Rn) JAVIER Will Service: Anesthesiology Author Type: Registered Nurse Type: Nursing Progress Note Filed: 10/25/2019 3:21 PM Note Text: PACC Nurse Progress Note History AND Physical: PACC Visit Date: 10/19/2019 Labs Within Last 6 Months: CBC: Date 10/19/2019 BMP/CMP: Date 10/19/2019 COVID-19: Date 10/23/2019 Imaging Within Last 12 Months: N/A Cardiac Testing: EKG in last 12 Months: Yes: Date: 10/19/2019, Comment: confirmed in EPIC Last Menstrual Period: LMP Date: No LMP recorded (Menstrual status: IUD). Postmenopausal >1yr: N/A, S/P Hysterectomy: N/A BMI Percentile (PEDS): N/A Risk Assessment: N/A Anesthesia Review: Intubation History: No history of difficult intubation Significant Anesthesia Considerations: Slow emergence Narrative: Requested records from Dr. Lockwood office and [facility], recent Echo Pre-op Considerations: Rheumatoid arthritis of multiple sites with negative rheumatoid factor (HCC) Assessment: holding rx, following Dr. Jorgensen, [facility] ? ? GERD (gastroesophageal reflux disease) Assessment: otc rx as needed ? ? Asthma Assessment: daily rx and albuterol as needed ? ? PFO (patent foramen ovale) Assessment: h/o, following Dr. Fabián Koenig, Cardiology Pt states also h/o MVP and Tricuspid, pt states recent Echo at [facility] ? Chart Check: COMPLETE Luisa Will RN October 25, 2019 3:15 PM Normal [facility] HOSPon 09-29-2019 HOSP Patient:Michelle Mauricio MRN: Height:5' 8(1.727 m) Weight:142 lb (64.411 kg) Outpatient Medications as of 10/26/19: promethazine (PHENERGAN) 25 mg tablet ondansetron orally disintegrating (ZOFRAN ODT) 4 mg disintegrating tablet ergocalciferol 50,000 unit capsule (VITAMIN D2, DRISDOL) cyanocobalamin 1,000 mcg/mL epinephrine (EPIPEN INJECTION) montelukast (SINGULAIR) 10 mg tablet spironolactone (ALDACTONE) 100 mg tablet ALBUTEROL INHALATION Admission/Clinic Administered Medications as of 10/26/19: lidocaine 10 mg/mL (1 %) 1-2 mg injection (XYLOCAINE) heparin 5,000 Units injection clindamycin iv piggyback 900 mg in D5W 50 mL (CLEOCIN) scopolamine 1 mg over 3 days 1 Patch (TRANSDERM-SCOP) scopolamine - REMOVE PATCH scopolamine - VERIFY patch lactated ringers infusion Problem List: Rheumatoid arthritis (HCC) [M06.9] Long-term use of immunosuppressant medication [Z79.899] Antinuclear antibody (YOHAN) titer greater than 1:80 [R76.0] Rheumatoid arthritis of multiple sites with negative rheumatoid factor (HCC) [M06.09] Slow transit constipation [K59.01] Generalized abdominal pain [R10.84] RUQ pain [R10.11] Acalculous cholecystitis [K81.9] GERD (gastroesophageal reflux disease) [K21.9] Asthma [J45.909] PFO (patent foramen ovale) [Q21.1] Acute cholecystitis with chronic cholecystitis [K81.2] Allergies: Amoxicillin Doxycycline Piperacillin Tazobactam Tramadol Vancomycin Date Verified: 10/26/19 Lab Values Lab Value Units Date High Low POTA* 3.9 mmol/L 10/19/2019 5.1 3.7 MARLENI* 44.4 % 10/19/2019 46.0 36.0 Progress Notes ([facility]): Marko Almaraz MD 09/29/2019 1:08 PM Signed CC: Right upper quadrant pain History of present illness: This is a 33-year-old female referred by ; recommendations will be communicated via shared medical record or US Mail. Patient first began having problems in January 2019, when she had syncope due to hemorrhage from a left ovarian cyst. This was taken care of laparoscopically in [facility]. During this procedure, her surgeon had concerns about the appearance of her bowels. She recovered from this procedure, but has since begun to have worsening intermittent episodes of right upper quadrant abdominal pain after eating. They occur 10-15 minutes after eating and are worse with heavier foods. The pain radiates to her right shoulder blade. The pain can last days in a row. She remembers many years of intermittent episodes of this pain, but now it is much more constant. She denies dark urine or light colored stools. She does have occasional constipation. EGD and colonoscopy were negative. She had a gallbladder ultrasound and HIDA scan with ejection fraction which were normal. PAST MEDICAL HISTORY Diagnosis Date - Antinuclear antibody (YOHAN) titer greater than 1:80 - Hypertension - Long-term use of immunosuppressant medication - Rheumatoid arthritis (HCC) PAST SURGICAL HISTORY Procedure Laterality Date - COLONOSCOPY 04/04/2019 Dr. Worthington-poor/inadequate prep. The prep is inadeqaute. Thick liquid stool seen throughout the colon. At least 30-40% of colonic wall was not well visualized. - EGD 07/25/2019 Dr. Worthington-acute gastritis. SB Bx-unremarkable. Antrum/fundus Bx-unremarkable, HP negative. Mid esophagus Bx-unremarkable. - EXTRACTION ERUPTED TOOTH/EXR - LAPAROSCOPIC APPENDECTOMY 2010 - OOPHORECTOMY PARTIAL OR TOTAL Right 2017 Current Outpatient Medications on File Prior to Visit Medication Sig - ondansetron orally disintegrating (ZOFRAN ODT) 4 mg disintegrating tablet TAKE 1 TABLET BY MOUTH EVERY 8 HOURS NEEDED - ergocalciferol 50,000 unit capsule (VITAMIN D2, DRISDOL) TAKE 1 CAPSULE BY MOUTH ONE TIME A WEEK FOR 12 DOSES. - cyanocobalamin 1,000 mcg/mL Inject 1 mL intramuscularly once every month. - epinephrine (EPIPEN INJECTION) Inject 1 Pen intramuscularly as needed. - montelukast (SINGULAIR) 10 mg tablet Take 10 mg by mouth once daily. - spironolactone (ALDACTONE) 100 mg tablet Take 100 mg by mouth once daily. - ALBUTEROL INHALATION Inhale as instructed. - linaclotide (LINZESS) 145 mcg capsule Take 1 capsule by mouth DAILY (6 AM). - ondansetron (ZOFRAN) 8 mg tablet - meclizine 25 mg chewable tablet(s) Take 25 mg by mouth three times daily as needed. - levonorgestrel (KYLEENA INTRAUTERINE) by INTRAUTERINE route. - predniSONE (DELTASONE) 5 mg tablet Take 1 tablet by mouth once daily as needed. (Patient not taking: Reported on 04/04/2019 ) No current facility-administered medications on file prior to visit. ALLERGIES Allergen Reactions - Amoxicillin Shortness of Breath - Doxycycline Shortness of Breath - Piperacillin Anaphylaxis - Tazobactam Anaphylaxis - Tramadol Vomiting - Vancomycin Anaphylaxis Social History Tobacco Use - Smoking status: Former Smoker Packs/day: 0.50 Years: 2.00 Pack years: 1.00 Types: Cigarettes Quit date: 2004 Years since quittin.6 - Smokeless tobacco: Never Used Substance Use Topics - Alcohol use: Yes Alcohol/week: 2.5 standard drinks Types: 1 Glasses of Wine (5oz) per week Comment: Occasionally; once a week - Drug use: No Family History Reviewed Including Cardiac Diseases, Psychiatric Diseases, AND Substance Abuse Problem: Arthritis Relation: Mother Age of Onset: (Not Specified) Comment: RA Problem: Colon Cancer Relation: No Family History Age of Onset: (Not Specified) REVIEW OF SYSTEMS GENERAL: No weight loss, malaise or fevers RESPIRATORY: Negative for cough, hemoptysis, wheezing, COPD, dyspnea or shortness of breath CARDIOVASCULAR: Negative for chest pain, leg swelling, hypertension, CHF or palpitations GI: See HPI : No history of dysuria, frequency or incontinence SKIN: Negative for lesions, rash, and itching NEURO: No history of headaches, syncope, paralysis, seizures or tremors Exam: No acute distress. No scleral icterus Lungs clear to auscultation bilaterally Heart: RRR, normal S1 and S2 without murmurs Abdomen: Soft, mild right upper quadrant tenderness to deep palpation, no masses Extremities: no edema Neuro: Nonfocal exam, normal gait A/P: Symptoms are most consistent with chronic acalculous cholecystitis. As she already has tried strict diet control, the only other option is laparoscopic cholecystectomy. Given her rheumatoid arthritis, I would also recommend laparoscopic liver biopsy. Procedure, risks, benefits, alternatives discussed including risks of bleeding, infection, bowel or bile duct injury, conversion to open, postoperative bile leak. Postoperative diarrhea also discussed. She understands and agrees to proceed. Marko Almaraz MD [facility] 07-19-2019 [facility] Telephone ([employer] ) -------- MICHELLE MAURICIO ([id number]) 1985 F Date Time Provider Department 07/19/19 CRICKET EVANS During your visit today, we recorded the following information about you: Allergies As of Date: 07/19/2019 Noted Allergy Reaction AMOXICILLIN 03/13/2016 12 - Shortness of Breath DOXYCYCLINE 03/13/2016 12 - Shortness of Breath PIPERACILLIN 08/07/2016 10 - Anaphylaxis TAZOBACTAM 08/07/2016 10 - Anaphylaxis TRAMADOL 03/13/2016 11 - Vomiting VANCOMYCIN 08/07/2016 10 - Anaphylaxis Date Reviewed: 04/04/2019 Reviewed by: Edilma Muñoz RN - Fully Assessed Reason for Visit: Medication Authorization [[id number]] Cmt: APPROVED ACTRA [id number] 07/26/19-07/25/2020 [employer]ET[employer] Reason For Visit History Recorded Prescriptions as of 07/19/2019 Sig: ERGOCALCIFEROL (VITAMIN D2) 1* TAKE 1 CAPSULE BY MOUTH ONE T* ACTEMRA 162 MG/0.9 ML SUBCUTA* Inject 0.9 mL subcutaneously * CYANOCOBALAMIN (VIT B-12) 1,0* Inject 1 mL intramuscularly o* LINACLOTIDE 145 MCG CAPSULE Take 1 capsule by mouth DAILY* ONDANSETRON HCL 8 MG TABLET EPIPEN INJECTION Inject 1 Pen intramuscularly * MECLIZINE 25 MG CHEWABLE TABL* Take 25 mg by mouth three viri* KYLEENA INTRAUTERINE by INTRAUTERINE route. MONTELUKAST 10 MG TABLET Take 10 mg by mouth once adrian* PREDNISONE 5 MG TABLET Take 1 tablet by mouth once d* Patient not taking: Reported on 04/04/2019 SPIRONOLACTONE 100 MG TABLET Take 100 mg by mouth once taj* ALBUTEROL INHALATION Inhale as instructed. Problem List As Of Date 07/19/2019 Noted Resolved Rheumatoid arthritis (HCC) [M06.9] Long-term use of immunosuppressant medication [* Antinuclear antibody (YOHAN) titer greater than 1* Rheumatoid arthritis of multiple sites with neg*02/19/2017 Slow transit constipation [K59.01] 04/04/2019 Generalized abdominal pain [R10.84] 04/04/2019 Encounter Status:Closed by ALVINA VENEGAS CMA on 07/19/19 [facility] OBSOLETEon 06-29-2019 OBSOLETE Refill (BAIRONHEUHWN) -------- MICHELLE MAURICIO ([id number]) 1985 F Date Time Provider Department 06/29/19 CRICKET EVANS During your visit today, we recorded the following information about you: Damon Obrien CMA 06/29/2019 8:24 AM Signed Pharmacy faxed requesting the following refill. Pending Prescriptions Disp Refills ACTEMRA 162 MG/0.9 ML SUBCUTANEOUS SYRINGE 4 Syringe 2 Sig: Inject 0.9 mL subcutaneously one time a week. RHIANNON: Yes Patient last appointment: 01/27/2019 Next Appointment: 10/27/2019 Patient Phone numbers: [phone] (home) Request is for script(s) to be escript to pharmacy. Damon Obrien CMA Allergies As of Date: 06/29/2019 Noted Allergy Reaction AMOXICILLIN 03/13/2016 12 - Shortness of Breath DOXYCYCLINE 03/13/2016 12 - Shortness of Breath PIPERACILLIN 08/07/2016 10 - Anaphylaxis TAZOBACTAM 08/07/2016 10 - Anaphylaxis TRAMADOL 03/13/2016 11 - Vomiting VANCOMYCIN 08/07/2016 10 - Anaphylaxis Date Reviewed: 04/04/2019 Reviewed by: Edilma Muñoz RN - Fully Assessed Reason for Visit: Refill Request [94] Order(s):ACTEMRA 162 mg/0.9 mLInject 0.9 mL subcutaneously one time a week.Disp: 4 SyringeRfl: 2 Prescriptions as of 06/29/2019 Sig: ACTEMRA 162 MG/0.9 ML SUBCUTA* Inject 0.9 mL subcutaneously * ERGOCALCIFEROL (VITAMIN D2) 1* Take 1 capsule by mouth one t* CYANOCOBALAMIN (VIT B-12) 1,0* Inject 1 mL intramuscularly o* LINACLOTIDE 145 MCG CAPSULE Take 1 capsule by mouth DAILY* ONDANSETRON HCL 8 MG TABLET EPIPEN INJECTION Inject 1 Pen intramuscularly * MECLIZINE 25 MG CHEWABLE TABL* Take 25 mg by mouth three viri* KYLEENA INTRAUTERINE by INTRAUTERINE route. MONTELUKAST 10 MG TABLET Take 10 mg by mouth once adrian* PREDNISONE 5 MG TABLET Take 1 tablet by mouth once d* Patient not taking: Reported on 04/04/2019 SPIRONOLACTONE 100 MG TABLET Take 100 mg by mouth once taj* ALBUTEROL INHALATION Inhale as instructed. Problem List As Of Date 06/29/2019 Noted Resolved Rheumatoid arthritis (HCC) [M06.9] Long-term use of immunosuppressant medication [* Antinuclear antibody (YOHAN) titer greater than 1* Rheumatoid arthritis of multiple sites with neg*02/19/2017 Slow transit constipation [K59.01] 04/04/2019 Generalized abdominal pain [R10.84] 04/04/2019 Prescriptions ordered this encounter Disp Refills Start End ACTEMRA 162 MG/0.9 ML SUBCUTANEOUS S* 4 Sy* 2 06/29/2019 07/29/2019 Route: SUBCUTANEOUS Sig: Inject 0.9 mL subcutaneously one time a week. Medications Discontinued During This Encounter ACTEMRA 162 mg/0.9 mL 4 mL 2 05/18/2019 06/29/2019 Route: SUBCUTANEOUS Sig: Inject 0.9 mL subcutaneously one time a week. Disc: Reason for discontinue is not on file. Encounter Status:Closed by CRICKET EVANS MD on 06/29/19 [facility] OBSOLETEon 05-18-2019 OBSOLETE Refill (AGRHEUHWN) -------- MICHELLE MAURICIO ([id number]) 1985 F Date Time Provider Department 05/18/19 CRICKET EVANSUHKIP During your visit today, we recorded the following information about you: Damon Obrien CMA 05/18/2019 8:45 AM Signed Pharmacy faxed requesting the following refill. Pending Prescriptions Disp Refills ACTEMRA 162 MG/0.9 ML SUBCUTANEOUS SYRINGE 4 mL 2 Sig: Inject 0.9 mL subcutaneously one time a week. RHIANNON: Yes Patient last appointment: 01/27/2019 Next Appointment: 06/09/2019 Patient Phone numbers: [phone] (home) Request is for script(s) to be escript to pharmacy. Damon Obrien CMA Allergies As of Date: 05/18/2019 Noted Allergy Reaction AMOXICILLIN 03/13/2016 12 - Shortness of Breath DOXYCYCLINE 03/13/2016 12 - Shortness of Breath PIPERACILLIN 08/07/2016 10 - Anaphylaxis TAZOBACTAM 08/07/2016 10 - Anaphylaxis TRAMADOL 03/13/2016 11 - Vomiting VANCOMYCIN 08/07/2016 10 - Anaphylaxis Date Reviewed: 04/04/2019 Reviewed by: Edilma Muñoz RN - Fully Assessed Reason for Visit: Refill Request [94] Order(s):ACTEMRA 162 mg/0.9 mLInject 0.9 mL subcutaneously one time a week.Disp: 4 mLRfl: 2 Prescriptions as of 05/18/2019 Sig: ACTEMRA 162 MG/0.9 ML SUBCUTA* Inject 0.9 mL subcutaneously * LINACLOTIDE 145 MCG CAPSULE Take 1 capsule by mouth DAILY* ONDANSETRON HCL 8 MG TABLET EPIPEN INJECTION Inject 1 Pen intramuscularly * MECLIZINE 25 MG CHEWABLE TABL* Take 25 mg by mouth three viri* KYLEENA INTRAUTERINE by INTRAUTERINE route. MONTELUKAST 10 MG TABLET Take 10 mg by mouth once adrian* PREDNISONE 5 MG TABLET Take 1 tablet by mouth once d* Patient not taking: Reported on 04/04/2019 SPIRONOLACTONE 100 MG TABLET Take 100 mg by mouth once taj* ALBUTEROL INHALATION Inhale as instructed. Problem List As Of Date 05/18/2019 Noted Resolved Rheumatoid arthritis (HCC) [M06.9] Long-term use of immunosuppressant medication [* Antinuclear antibody (YOHAN) titer greater than 1* Rheumatoid arthritis of multiple sites with neg*02/19/2017 Slow transit constipation [K59.01] 04/04/2019 Generalized abdominal pain [R10.84] 04/04/2019 Prescriptions ordered this encounter Disp Refills Start End ACTEMRA 162 MG/0.9 ML SUBCUTANEOUS S* 4 mL 2 05/18/2019 06/17/2019 Route: SUBCUTANEOUS Sig: Inject 0.9 mL subcutaneously one time a week. Medications Discontinued During This Encounter ACTEMRA 162 mg/0.9 mL 4 mL 0 04/28/2019 05/18/2019 Route: SUBCUTANEOUS Sig: Inject 0.9 mL subcutaneously one time a week. Disc: Reason for discontinue is not on file. Encounter Status:Closed by CRICKET EVANS MD on 05/18/19 [facility] OBSOLETEon 04-28-2019 OBSOLETE Refill (AGRHEUHWN) -------- MICHELLE MAURICIO ([id number]) 1985 F Date Time Provider Department 04/28/19 CRICKET EVANS During your visit today, we recorded the following information about you: Damon Obrien CMA 04/28/2019 1:13 PM Signed Pharmacy faxed requesting the following refill. Pending Prescriptions Disp Refills ACTEMRA 162 MG/0.9 ML SUBCUTANEOUS SYRINGE 4 mL 0 Sig: Inject 0.9 mL subcutaneously one time a week. RHIANNON: Yes Patient last appointment: 01/27/2019 Next Appointment: 06/09/2019 Patient Phone numbers: [phone] (home) Request is for script(s) to be escript to pharmacy. Damon Obrien CMA Allergies As of Date: 04/28/2019 Noted Allergy Reaction AMOXICILLIN 03/13/2016 12 - Shortness of Breath DOXYCYCLINE 03/13/2016 12 - Shortness of Breath PIPERACILLIN 08/07/2016 10 - Anaphylaxis TAZOBACTAM 08/07/2016 10 - Anaphylaxis TRAMADOL 03/13/2016 11 - Vomiting VANCOMYCIN 08/07/2016 10 - Anaphylaxis Date Reviewed: 04/04/2019 Reviewed by: Edilma Muñoz RN - Fully Assessed Reason for Visit: Refill Request [94] Order(s):ACTEMRA 162 mg/0.9 mLInject 0.9 mL subcutaneously one time a week.Disp: 4 mLRfl: 0 Prescriptions as of 04/28/2019 Sig: ACTEMRA 162 MG/0.9 ML SUBCUTA* Inject 0.9 mL subcutaneously * LINACLOTIDE 145 MCG CAPSULE Take 1 capsule by mouth DAILY* ONDANSETRON HCL 8 MG TABLET EPIPEN INJECTION Inject 1 Pen intramuscularly * MECLIZINE 25 MG CHEWABLE TABL* Take 25 mg by mouth three viri* KYLEENA INTRAUTERINE by INTRAUTERINE route. MONTELUKAST 10 MG TABLET Take 10 mg by mouth once adrian* PREDNISONE 5 MG TABLET Take 1 tablet by mouth once d* Patient not taking: Reported on 04/04/2019 SPIRONOLACTONE 100 MG TABLET Take 100 mg by mouth once taj* ALBUTEROL INHALATION Inhale as instructed. Problem List As Of Date 04/28/2019 Noted Resolved Rheumatoid arthritis (HCC) [M06.9] Long-term use of immunosuppressant medication [* Antinuclear antibody (YOHAN) titer greater than 1* Rheumatoid arthritis of multiple sites with neg*02/19/2017 Slow transit constipation [K59.01] 04/04/2019 Generalized abdominal pain [R10.84] 04/04/2019 Prescriptions ordered this encounter Disp Refills Start End ACTEMRA 162 MG/0.9 ML SUBCUTANEOUS S* 4 mL 0 04/28/2019 05/28/2019 Route: SUBCUTANEOUS Sig: Inject 0.9 mL subcutaneously one time a week. Medications Discontinued During This Encounter ACTEMRA 162 mg/0.9 mL syrg 03/28/2019 04/28/2019 Class: Historical Med Sig: Disc: Reason for discontinue is not on file. Encounter Status:Closed by CRICKET EVANS MD on 04/28/19 Normal [facility] Hemogram/Diffon 02-22-2019 Abs Immature Grans 0.01 thou/cmm Normal 0.00-0.05 [facility] Comment on above: Performed By: #### C BCD1 #### [place] [address] Abs Neut (ANC) 1.55 thou/cmm Low 1.56-6.13 [facility] Comment on above: Performed By: #### C BCD1 #### [place] [address] Abs. Baso 0.07 thou/cmm Normal 0.01-0.08 [facility] Comment on above: Performed By: #### C BCD1 #### [place] [address] Abs. Audrain 0.56 thou/cmm Normal 0.27-0.70 [facility] Comment on above: Performed By: #### C BCD1 #### [place] [address] Basophils/100 WBC (Bld) 1.9 % Normal [facility] Comment on above: Performed By: #### C BCD1 #### [place] [address] Eosinophils (Bld) [#/Vol] 0.27 thou/cmm Normal 0.00-0.31 [facility] Comment on above: Performed By: #### C BCD1 #### [facility] [address] [place], [place] [address] Eosinophils/100 WBC (Bld) 7.2 % Normal [facility] Comment on above: Performed By: #### C BCD1 #### [facility] [address] [place], [place] [address] Erythrocyte distribution width (RBC) [Ratio] 13.6 % Normal 11.7-14.4 [facility] Comment on above: Performed By: #### C BCD1 #### [facility] [address] [place] [address] Hematocrit (Bld) [Volume fraction] 40.3 % Normal 34.1-44.9 [facility] Comment on above: Performed By: #### C BCD1 #### [facility] [address] [place] [address] Hemoglobin (Bld) [Mass/Vol] 13.8 g/dL Normal 11.2-15.7 [facility] Comment on above: Performed By: #### C BCD1 #### [facility] [address] [place] [address] Immature Grans 0.30 % Normal [facility] Comment on above: Performed By: #### C BCD1 #### [facility] [address] [place] [address] Lymphocytes (Bld) [#/Vol] 1.31 thou/cmm Normal 1.18-3.74 [facility] Comment on above: Performed By: #### C BCD1 #### [facility] [address] [place], [place] [address] Lymphocytes/100 WBC (Bld) 34.7 % Normal [facility] Comment on above: Performed By: #### C BCD1 #### [facility] [address] [place] [address] MCH (RBC) [Entitic mass] 30.9 pg Normal 25.6-32.2 [facility] Comment on above: Performed By: #### C BCD1 #### [facility] [address] [place], [place] [address] MCHC (RBC) [Mass/Vol] 34.2 % Normal 31.6-34.8 [facility] Comment on above: Performed By: #### C BCD1 #### [facility] [address] [place], [place] [address] MCV (RBC) [Entitic vol] 90.4 fL Normal 79.4-94.8 [facility] Comment on above: Performed By: #### C BCD1 #### [facility] [address] [place], [place] [address] Monocytes/100 WBC (Bld) 14.9 % Normal [facility] Comment on above: Performed By: #### C BCD1 #### [facility] [address] [place], [place] [address] Platelet mean volume (Bld) [Entitic vol] 10.4 fL Normal 9.4-12.3 [facility] Comment on above: Performed By: #### C BCD1 #### [facility] [address] [place], [place] [address] Platelets (Bld) [#/Vol] 231 thou/cmm Normal 182-369 [facility] Comment on above: Performed By: #### C BCD1 #### [facility] [address] [place], [place] [address] RBC (Bld) [#/Vol] 4.46 mil/cmm Normal 3.93-5.22 [facility] Comment on above: Performed By: #### C BCD1 #### [facility] [address] [place], [place] [address] RDW SD 45.1 fl Normal 36.4-46.3 [facility] Comment on above: Performed By: #### C BCD1 #### [facility] [address] [place], [place] [address] Seg Neutrophil 41.0 % Normal [facility] Comment on above: Performed By: #### C BCD1 #### [facility] [address] [place], [place] [address] WBC (Bld) [#/Vol] 3.77 thou/cmm Low 3.98-10.04 [facility] Comment on above: Performed By: #### C BCD1 #### [facility] [address] [address] XR ABDOMEN 1V SUPINEon 02-22 XR ABDOMEN 1V SUPINE * * *Final Report* * * DATE OF EXAM: Feb 22 2019 8:31AM [id number] - XR ABDOMEN 1V SUPINE / PROCEDURE REASON: Generalized abdominal pain * * * * Physician Interpretation * * * * EXAM TITLE: XR ABDOMEN 1V SUPINE DATE: 02/22/2019 COMPARISON: None. CLINICAL INDICATION/HISTORY: Abdominal pain. Constipation TECHNIQUE: A single view of the abdomen is presented. FINDINGS: No abnormality dilated bowel loops are noted. Moderate to large colonic stool burden. No evidence of free air. There is no abnormal calcifications. No acute bony abnormality. There is slight rightward convex scoliotic curvature lumbar spine. IUD projects within the pelvis. IMPRESSION: There is no evidence of free air or obstruction. Moderate to large colonic stool burden. Correlate for constipation. Oil Seal Assembler: JULISSA Transcribe Date/Time: Feb 23 2019 11:48A Dictated by : NARAYAN KIRBY MD This examination was interpreted and the report reviewed and electronically signed by: NARAYAN KIRBY MD on Feb 23 2019 11:49AM EST Normal [facility] Vital Signs Date Time Vital Sign Value Performing Clinician Facility 06-30-2022 14:03-0400 Body height 172.7 cm Marquis Lott MD Work Phone: [facility] 06-30-2022 14:03-0400 Body mass index (BMI) [Ratio] 28.13 kg/m2 Marquis Lott MD Work Phone: [facility] 06-30-2022 14:03-0400 Body temperature 98.1 [degF] Marquis Lott MD Work Phone: [facility] 06-30-2022 14:03-0400 Body weight 83.92 kg Marquis Lott MD Work Phone: [facility] 06-30-2022 14:03-0400 Diastolic blood pressure 80 mm[Hg] Marquis Lott MD Work Phone: [facility] 06-30-2022 14:03-0400 Heart rate 70 /min Marquis Lott MD Work Phone: [facility] 06-30-2022 14:03-0400 Systolic blood pressure 129 mm[Hg] Marquis Lott MD Work Phone: [facility] 06-10-2022 07:46-0400 Body height 172.[address] Gato Dc Work Phone: [facility] 06-10-2022 07:46-0400 Body mass index (BMI) [Ratio] 29 kg/m2 Dr. Gato Dc Work Phone: [facility] 06-10-2022 07:46-0400 Body temperature 97.8 [degF] Dr. Gato Dc Work Phone: [facility] 06-10-2022 07:46-0400 Body weight 86.[address] Gato Dc Work Phone: [facility] 06-10-2022 07:46-0400 Diastolic blood pressure 76 mm[Hg] Dr. Gato Dc Work Phone: [facility] 06-10-2022 07:46-0400 Respiratory rate 18 /min Dr. Gato Dc Work Phone: [facility] 06-10-2022 07:46-0400 SaO2% (BldA) [Mass fraction] 98 % Dr. Gato Dc Work Phone: [facility] 06-10-2022 07:46-0400 Systolic blood pressure 121 mm[Hg] Dr. Gato Dc Work Phone: [facility] 12-20-2021 10:03-0400 Body height 172.[address] Gato Dc Work Phone: [facility] 12-20-2021 10:03-0400 Body mass index (BMI) [Ratio] 27.6 kg/m2 Dr. Gato Dc Work Phone: [facility] 12-20-2021 10:03-0400 Body weight 82.[address] Gato Dc Work Phone: [facility] 12-20-2021 10:03-0400 Diastolic blood pressure 80 mm[Hg] Dr. Gato Dc Work Phone: [facility] 12-20-2021 10:03-0400 Heart rate 72 /min Dr. Gato Dc Work Phone: [facility] 12-20-2021 10:03-0400 Respiratory rate 18 /min Dr. Gato Dc Work Phone: [facility] 12-20-2021 10:03-0400 SaO2% (BldA) [Mass fraction] 94 % Dr. Gato Dc Work Phone: [facility] 12-20-2021 10:03-0400 Systolic blood pressure 124 mm[Hg] Dr. Gato Dc Work Phone: [facility] 11-27-2021 11:08-0400 Body temperature 97.59 [degF] Fausto Treviño MD Work Phone: [facility] 11-27-2021 11:08-0400 Diastolic blood pressure 73 mm[Hg] Fausto Treviño MD Work Phone: [facility] 11-27-2021 11:08-0400 Heart rate 63 /min Fausto Treviño MD Work Phone: [facility] 11-27-2021 11:08-0400 Respiratory rate 18 /min Fausto Treviño MD Work Phone: [facility] 11-27-2021 11:08-0400 SaO2% (BldA) [Mass fraction] 99 % Fausto Treviño MD Work Phone: [facility] 11-27-2021 11:08-0400 Systolic blood pressure 123 mm[Hg] Fausto Treviño MD Work Phone: [facility] 11-27-2021 09:02-0400 Body mass index (BMI) [Ratio] 27.4 kg/m2 Fausto Treviño MD Work Phone: [facility] 11-27-2021 09:02-0400 Body weight 81.74 kg Fausto Treviño MD Work Phone: [facility] 11-25-2021 13:39-0400 Body height 172.7 cm Fausto Treviño MD Work Phone: [facility] 11-21-2021 15:28-0400 Body height 172.[address] Gato Dc Work Phone: [facility] Work Phone: 11-21-2021 15:28-0400 Body mass index (BMI) [Ratio] 27.9 kg/m2 Dr. Gato Dc Work Phone: [facility] Work Phone: 11-21-2021 15:28-0400 Body weight 83.[address] Gato Dc Work Phone: [facility] Work Phone: 11-21-2021 15:28-0400 Diastolic blood pressure 76 mm[Hg] Dr. Gato Dc Work Phone: [facility] Work Phone: 11-21-2021 15:28-0400 Heart rate 70 /min Dr. Gato Dc Work Phone: [facility] Work Phone: 11-21-2021 15:28-0400 Respiratory rate 20 /min Dr. Gato Dc Work Phone: [facility] Work Phone: 11-21-2021 15:28-0400 Systolic blood pressure 120 mm[Hg] Dr. Gato Dc Work Phone: [facility] Work Phone: 08-27-2021 11:18-0400 Body weight 83.01 kg Minesh Cottrell MD Work Phone: [facility] 08-27-2021 11:18-0400 Diastolic blood pressure 79 mm[Hg] Minesh Cottrell MD Work Phone: [facility] 08-27-2021 11:18-0400 Heart rate 64 /min Minesh Cottrell MD Work Phone: [facility] 08-27-2021 11:18-0400 Systolic blood pressure 121 mm[Hg] Minesh Cottrell MD Work Phone: [facility] 05-19-2021 13:45-0400 Body temperature 97.8 [degF] [facility] Work Phone: 05-19-2021 13:45-0400 Diastolic blood pressure 61 mm[Hg] [facility] Work Phone: 05-19-2021 13:45-0400 Heart rate 70 /min [facility] Work Phone: 05-19-2021 13:45-0400 Respiratory rate 16 /min [facility] Work Phone: 05-19-2021 13:45-0400 Systolic blood pressure 126 mm[Hg] [facility] Work Phone: 05-19-2021 09:01-0400 SaO2% (BldA) [Mass fraction] 96 % [facility] Work Phone: 05-17-2021 07:43-0400 Body height 172.72 cm [facility] Work Phone: 05-17-2021 07:43-0400 Body mass index (BMI) [Ratio] 31.3 kg/m2 [facility] Work Phone: 05-17-2021 07:43-0400 Body weight 93.44 kg [facility] Work Phone: 05-11-2021 11:04-0400 Diastolic blood pressure 72 mm[Hg] Dr. Gato Dc Work Phone: [facility] Work Phone: 05-11-2021 11:04-0400 Heart rate 64 /min Dr. Gato Dc Work Phone: [facility] Work Phone: 05-11-2021 11:04-0400 Systolic blood pressure 112 mm[Hg] Dr. Gato Dc Work Phone: [facility] Work Phone: 05-11-2021 11:03-0400 SaO2% (BldA) [Mass fraction] 97 % Dr. Gato Dc Work Phone: [facility] Work Phone: 05-11-2021 11:02-0400 Body temperature 96.8 [degF] Dr. Gato Dc Work Phone: [facility] Work Phone: 05-09-2021 07:26-0400 Body height 172.[address] Gato Dc Work Phone: [facility] Work Phone: 05-09-2021 07:26-0400 Body mass index (BMI) [Ratio] 31.6 kg/m2 Dr. Gato Dc Work Phone: [facility] Work Phone: 05-09-2021 07:26-0400 Body weight 94.[address] Gato Dc Work Phone: [facility] Work Phone: 04-30-2021 18:11-0400 Diastolic blood pressure 60 mm[Hg] Dr. Gato Dc Work Phone: [facility] Work Phone: 04-30-2021 18:11-0400 Heart rate 76 /min Dr. Gato Dc Work Phone: [facility] Work Phone: 04-30-2021 18:11-0400 Systolic blood pressure 120 mm[Hg] Dr. Gato Dc Work Phone: [facility] Work Phone: 04-30-2021 15:41-0400 Body temperature 97.7 [degF] Dr. Gato Dc Work Phone: [facility] Work Phone: 04-30-2021 15:27-0400 Body mass index (BMI) [Ratio] 31.4 kg/m2 Dr. Gato Dc Work Phone: [facility] Work Phone: 04-30-2021 15:27-0400 Body weight 93.[address] Gato Dc Work Phone: [facility] Work Phone: 02-04-2021 17:24-0500 Diastolic blood pressure 60 mm[Hg] Dr. Gato Dc Work Phone: [facility] Work Phone: 02-04-2021 17:24-0500 Heart rate 65 /min Dr. Gato Dc Work Phone: [facility] Work Phone: 02-04-2021 17:24-0500 Systolic blood pressure 118 mm[Hg] Dr. Gato Dc Work Phone: [facility] Work Phone: 02-04-2021 16:49-0500 Body temperature 98.4 [degF] Dr. Gato Dc Work Phone: [facility] Work Phone: 02-04-2021 16:49-0500 SaO2% (BldA) [Mass fraction] 99 % Dr. Gato Dc Work Phone: [facility] Work Phone: 02-04-2021 16:10-0500 Body mass index (BMI) [Ratio] 27.8 kg/m2 Dr. Gato Dc Work Phone: [facility] Work Phone: 02-04-2021 16:10-0500 Body weight 83.[address] Gato Dc Work Phone: [facility] Work Phone: 01-14-2021 13:19-0500 Body weight 82.[address] Gato Dc Work Phone: [facility] Work Phone: 01-14-2021 13:19-0500 Diastolic blood pressure 58 mm[Hg] Dr. Gato Dc Work Phone: [facility] Work Phone: 01-14-2021 13:19-0500 Heart rate 72 /min Dr. Gato Dc Work Phone: [facility] Work Phone: 01-14-2021 13:19-0500 Respiratory rate 16 /min Dr. Gato Dc Work Phone: [facility] Work Phone: 01-14-2021 13:19-0500 Systolic blood pressure 100 mm[Hg] Dr. Gato Dc Work Phone: [facility] Work Phone: 12-29-2019 14:07-0500 Body mass index (BMI) [Ratio] 22 kg/m2 Dr. Gato Dc Work Phone: [facility] Work Phone: Encounters Encounter Date Encounter Type Care Provider Facility Start: 12-27-2024 ambulatory ANTONETTE ROSEN APRN - INFORMATICS EDUCATOR Facility:[facility] Start: 12-02-2024 End: 12-06-2024 ambulatory CLARA WOODARD MD Facility:[facility] [place] Start: 12-02-2024 End: 12-06-2024 Encounter for gynecological examination (general) (routine) without abnormal findings CLARA WOODARD MD Facility:[facility] Start: 12-02-2024 End: 12-06-2024 Outreach Lab CLARA WOODARD MD [facility] Start: 10-14-2024 ambulatory Gato Fernández y:[facility] Start: 06-08-2024 End: 06-08-2024 ambulatory Gato Dc Facility:[facility] Start: 04-13-2024 End: 04-13-2024 ambulatory Gato Dc Facility:[facility] Start: 03-30-2024 End: 03-30-2024 ambulatory Gato Dc Facility:[facility] Start: 03-11-2024 ambulatory Gato Dc Facilit y:[facility] Start: 02-05-2024 End: 02-05-2024 ambulatory Gato Dc Facility:[facility] Start: 01-27-2024 End: 01-27-2024 ambulatory Gato Dc Facility[facility] Start: 12-21-2023 End: 12-21-2023 Patient encounter procedure MER[facility] MENDEZ SAP TREASURY CONSULTANT-INFORMATICS EDUCATOR [facility] Start: 12-03-2023 End: 12-03-2023 Patient encounter procedure [facility] MENDEZ SAP TREASURY CONSULTANT-INFORMATICS EDUCATOR [facility] Start: 12-01-2023 End: 12-01-2023 Patient encounter procedure MERCY MENDEZ SAP TREASURY CONSULTANT-INFORMATICS EDUCATOR [facility] Start: 11-27-2023 End: 11-27-2023 ambulatory Gato Dc Facility:[facility] Start: 11-20-2023 End: 11-20-2023 ambulatory Gato Dc Facility:[facility] Start: 11-05-2023 End: 11-05-2023 ambulatory Aroldo Miramontes Facility:[facility] Start: 10-20-2023 End: 10-20-2023 ambulatory Aroldotalib Miramontes Facility:[facility] Start: 10-16-2023 End: 10-16-2023 ambulatory Gato Dc Facility[facility] Start: 08-05-2023 End: 08-05-2023 ambulatory GATO DC Facility:[facility] Start: 08-05-2023 End: 08-05-2023 Subsequent hospital visit by physician [employer] [facility] (I-Stat/1.5t) Work Phone: Radiology Start: 02-20-2023 End: 02-20-[address] Gato cD Work Phone: [facility] Work Phone: Start: 02-20-2023 End: 02-20-[address] Gato Dc Work Phone: [facility], [place] Work Phone: Start: 01-29-2023 End: 01-29-[address] Gato Dc Work Phone: [facility] Work Phone: Start: 01-29-2023 End: 01-29-[address] Gato Dc Work Phone: [facility] Ultrasound Work Phone: Start: 12-17-2022 End: 12-22-2022 ambulatory BUSHRA GRAYSON MD Facility:[facility] Start: 12-17-2022 End: 12-21-2022 Outreach Lab BUSHRA GRAYSON MD [facility] Start: 12-12-2022 End: 12-12-[address] Gato Dc Work Phone: [facility] Gastroenterology Work Phone: Start: 11-28-2022 End: 11-28-2022 ambulatory GATO DC Facility:[facility] Start: 08-29-2022 End: 08-29-[address] Gato Dc Work Phone: [facility] Work Phone: Start: 08-29-2022 End: 08-29-[address] Gato Dc Work Phone: [facility]Laboratory, Specimen Work Phone: Start: 08-29-2022 End: 08-29-[address] Gato Dc Work Phone: [facility] Work Phone: Start: 08-15-2022 End: 08-15-[address] Gato Dc Work Phone: [facility] Work Phone: Start: 08-15-2022 End: 08-15-[address] Gato Dc Work Phone: [facility] Ultrasound Work Phone: Start: 07-25-2022 End: 07-25-[address] Gato Dc Work Phone: [facility] Gastroenterology Work Phone: Start: 06-30-2022 End: 06-30-2022 ambulatory MARQUIS LOTT [facility] Start: 06-30-2022 End: 06-30-2022 Office outpatient new 30 minutes Marquis Lott MD Work Phone: [facility] Comment on above: Fibrocystic disease of both breasts (Primary Dx); Axillary adenopathy Start: 06-10-2022 End: 06-10-[address] Gato Dc Work Phone: [facility] Work Phone: Start: 05-16-2022 End: 05-16-[address] [facility] Work Phone: Start: 05-16-2022 End: 05-16-2022 Patient encounter procedure [facility] Start: 04-18-2022 End: 04-18-[address] Gato Dc Work Phone: [facility] Work Phone: Start: 04-18-2022 End: 04-18-[address] Gato Dc Work Phone: [facility] Start: 04-11-2022 End: 04-11-[address] Gato Dc Work Phone: [facility] Work Phone: Start: 04-11-2022 End: 04-11-[address] Gato Dc Work Phone: [facility] Start: 03-26-2022 End: 03-26-[address] Gato Dc Work Phone: [facility] Work Phone: Start: 03-26-2022 End: 03-26-[address] Gato Dc Work Phone: [facility] section chief Off Start: 02-07-2022 ambulatory Minesh Cottrell MD Work Phone: Gastroenterology Comment on above: Liver CT Start: 01-24-2022 End: 01-25-[address] [facility] Start: 01-13-2022 Non-patient / Non-visit Dr. Gato Dc Work Phone: [facility] Start: 01-02-2022 End: 01-02-[address] [facility] Start: 12-30-[address] Gato obrien [facility] Start: 12-20-2021 End: 12-20-[address] Gato Dc Work Phone: [facility] Start: 12-18-2021 End: [facility] Start: 12-12-2021 End: 12-12-2021 Subsequent hospital visit by physician Melanie Espino MD Work Phone: [facility] [address] [facility] Comment on above: Arrived Start: 11-26-2021 End: 11-27-2021 ambulatory [facility] Start: 11-25-2021 End: 11-27-2021 Emergency department patient visit Fausto Treviño MD Work Phone: [facility] Comment on above: Dyspnea, unspecified type (Primary Dx) Start: 11-25-2021 Non-patient / Non-visit Dr. Gato Dc Work Phone: [facility] Start: 11-25-2021 End: 11-25-[address] Gato Dc Work Phone: [facility] Work Phone: Start: 11-25-2021 End: 11-25-[address] Gato Dc Work Phone: [facility] Start: 11-21-2021 End: 11-21-[address] Gato Dc Work Phone: [facility] Work Phone: Start: 11-21-2021 End: 11-21-[address] Gato Dc Work Phone: [facility] Start: 11-21-2021 End: 11-21-[address] Gato Dc Work Phone: [facility] Start: 10-25-2021 End: 10-25-[address] [facility] Work Phone: Start: 10-25-2021 End: 10-25-2021 [facility] Start: 09-12-2021 ambulatory Minesh Cottrell MD Work Phone: Gastroenterology Comment on above: Test results Start: 09-11-2021 End: 09-11-2021 Subsequent hospital visit by physician [facility] (I-Stat) Work Phone: Cat Scan Comment on above: Abnormal results of liver function studies [R94.5] Start: 08-27-2021 End: 08-27-2021 Patient encounter procedure Minesh Cottrell MD Work Phone: Gastroenterology Comment on above: Hepatomegalia (Prima ry Dx); Abnormal results of liver function studies Start: 06-14-2021 End: 06-14-2021 Patient encounter procedure [facility] Start: 06-11-2021 End: 06-11-2021 Patient encounter procedure [facility], [facility] Start: 05-23-2021 End: 05-23-2021 Patient encounter procedure [facility] [place] section chief Off Start: 05-17-2021 End: 05-19-2021 Evaluation and management of inpatient [place] [facility] Start: 05-09-2021 End: 05-11-2021 Evaluation and management of inpatient Dr. Gato Dc Work Phone: [facility] Start: 04-30-2021 End: 04-30-[address] Gato Dc Work Phone: [facility], Outpatients Start: 04-25-2021 End: 04-25-[address] Gato Dc Work Phone: [facility], [place] section chief Off Start: 04-19-2021 End: 04-19-[address] Gato Dc Work Phone: [facility] [place] section chief Off Start: 03-27-2021 End: 03-27-[address] Gato Dc Work Phone: [facility] Start: 02-06-[address] [facility] [place] [facility] Start: 02-04-2021 End: 02-04-[address] [facility] Dc [facility] Start: 01-14-2021 End: 01-14-[address] Gato Dc Work Phone: [facility] Procedures Date Procedure Procedure Detail Performing Clinician Start: 08-05-2023 Mri brain brain stem w/o w/contrast material [facility] Provider Start: 01-29-[address] Gato Dc Work Phone: Start: 08-15-[address] Gato Dc Work Phone: Start: 08-15-[address] Gato Dc Work Phone: Start: 08-15-[address] Gato Dc Work Phone: Start: 05-16-2022 Ultrasonography of breast Start: 05-16-2022 Bilateral mammography Start: 11-27-2021 Ecg routine ecg w/le ast 12 lds w/i&r Clarice Chu PA-C Work Phone: Start: 11-27-2021 Blood count complete automated Clarice Chu PA-C Work Phone: Start: 11-26-2021 Echo tthrc r-t 2d w/ wom-mode compl spec&colr d Quinton Dodge MD Work Phone: Start: 11-26-2021 ADD ON LAB TEST Quinton daley MD Work Phone: Start: 11-26-2021 Natriuretic peptide Sha rodrigue Chu PA-C Work Phone: Start: 11-26-2021 Basic metabolic pane l calcium total Jovanna Deal SAP TREASURY CONSULTANT - INFORMATICS EDUCATOR Work Phone: Start: 11-26-2021 Lipid panel Jovanna ferreira SAP TREASURY CONSULTANT - INFORMATICS EDUCATOR Work Phone: Start: 11-26-2021 COVID-19 Nahun Gomez MD Work Phone: Start: 11-25-2021 Ct angiography chest w/contrast/noncontrast Fausto Treviño MD Work Phone: Start: 11-25-2021 ADD ON LAB TEST Nahun Gomez MD Work Phone: Start: 11-25-2021 Radiologic exam ches t single view Fausto Treviño MD Work Phone: Start: 11-25-2021 Basic metabolic pane l calcium total Jaquan Lozano MD Work Phone: Start: 11-25-2021 Hepatic function panel Jaquan Lozano MD Work Phone: Start: 11-25-2021 Ecg routine ecg w/le ast 12 lds w/i&r Jaquan Lozano MD Work Phone: Start: 11-21-2021 Plain chest X-ray Dr. Tacos Dc Work Phone: Start: 09-11-2021 Ct abdomen w/contras t material Minesh Cottrell MD Work Phone: Start: 06-14-2021 Ultrasonography of abdomen Start: 05-09-2021 End: 05-09-[address] Gato Dc Work Phone: Start: 04-30-2021 Group B Streptococcu s Culture Dr. Gato Dc Work Phone: Start: 04-25-[address] Gato Dc Work Phone: Start: 04-19-2021 X-ray of both feet Dr. Gato Dc Work Phone: Start: 02-16-2019 Cholecystectomy CLARA WOODARD MD Start: 01-16-2019 Cyst of ovary (disorder) BUSHRA GRAYSON MD Comment on above: right, aspiration left ruptured hemorr hagic cyst with hemoperitoneum Start: 08-05-2017 Oophorectomy BUSHRA HURTADO MD Comment on above: right Start: 01-05-2012 Appendectomy BUSHRA HURTADO MD Start: 12-03-2009 Colonoscopy BUSHRA HURTADO MD Comment on above: Normal Ectopic (disorder) CLARA WOODARD MD Comment on above: x2 Plan of Treatment Date Care Activity Detail Author Start: 10-18-2023 Influenza vaccination Influenz a Vaccine (Season Ended) [facility] Start: 02-16-2023 Behavioral Health Screening Behavioral Health Screening [facility] Start: 10-17-2022 Influenza vaccination Influenz a Vaccine (Season Ended) [facility] Start: 10-17-2021 Influenza vaccination INFLUENZA (#1) [facility] Start: 09-16-2021 Influenza vaccination Flu vaccine (# 1) [facility] Start: 04-30-2021 Iv infusion hydratio n initial 31 min-1 hour HYDRATION IV INFUSION [facility] Work Phone: Start: 02-16-2021 DEPRESSION ASSESSMENT DEPRESSION ASS ESSMENT [facility] Start: 06-02-2019 DTaP/Tdap/Td vaccine (7 - Td or Tdap) DTaP/Tdap/Td vaccine (7 - Td or Tdap) [facility] Start: 06-02-2019 DTaP/Tdap/Td Vaccine s (7 - Td or Tdap) DTaP/Tdap/Td Vaccines (7 - Td or Tdap) [facility] Start: 06-02-2019 Urine microalbumin profile DTaP,Tdap,Td Vaccine (7 - Td or Tdap) [facility] Start: 06-18-2018 Pneumococcal 0-64 ye ars Vaccine (2 - PCV) Pneumococcal 0-64 years Vaccine (2 - PCV) [facility] Start: 06-18-2018 Pneumococcal vaccination Pneumococcal Vaccine (3 of 3 - PCV) [facility] Start: 06-18-2018 Pneumococcal Vaccine : Pediatrics (0 to 5 Years) and At-Risk Patients (6 to 64 Years) (3 - PCV) Pneumococcal Vaccine: Pediatrics (0 to 5 Years) and At-Risk Patients (6 to 64 Years) (3 - PCV) [facility] Start: 2014 HPV TESTING HPV TESTING [facility] Start: 2014 Screening for malign ant neoplasm of cervix [facility] Start: 03-13-2012 Hepatitis A Vaccines (2 of 2 - Risk 2-dose series) Hepatitis A Vaccines (2 of 2 - Risk 2-dose series) [facility] Start: 01-19-2009 Varicella vaccination Varicell a Vaccines (1 of 2 - 2-dose childhood series) [facility] Start: 01-19-2009 Varicella vaccine (1 of 2 - 2-dose childhood series) Varicella vaccine (1 of 2 - 2-dose childhood series) [facility] Start: 2005 PAP TESTING PAP TESTING [facility] Start: 2005 Screening for malign ant neoplasm of cervix Pap smear [facility] Start: 12-11-2003 SHINGRIX VACCINE (1 of 2) SHINGRIX VACCINE (1 of 2) [facility] Start: 12-11-2003 Urine microalbumin profile DTAP,TDAP,TD (1 - Tdap) [facility] Start: 12-11-2003 Zoster Vaccines (1 o f 2) Zoster Vaccines (1 of 2) [facility] Start: 2002 ANNUAL PCP TEAM AUDITOR INTERNAL ARMANDO DISEASE VISIT ANNUAL PCP TEAM CHRONIC DISEASE VISIT [facility] Start: 2002 Hepatitis C screening Hepatitis C Sc reening [facility] Start: 2002 HIV SCREENING HIV SCREENING [facility] Start: 2002 HIV screening HIV Screening [facility] Start: 2002 SPIROMETRY SPIROMETRY [facility] Start: 12-11-1999 HIV screening HIV screen [facility] Start: 1996 Adult depression screening assessment DEPRESSION SCREENING [facility] Start: 1996 Depression Screen Depression Screen [facility] Start: 12-11-1995 Screening for malign ant neoplasm of cervix Cervical Cancer Screening [facility] Start: 1990 PNEUMOCOCCAL (1 - PCV) PNEUMOCOCCAL (1 - PCV) [facility] Start: 1989 COVID-19 VACCINE (#1) COVID-19 VACCI NE (#1) [facility] Start: 06-10-1985 COVID-19 Vaccine (#1) COVID-19 Vacci ne (#1) [facility] Start: 1984 HEPATITIS B (1 of 3 - 3-dose series) HEPATITIS B (1 of 3 - 3-dose series) [facility] Start: 1984 HIV screening HIV Screening [facility] End: 11-25-2021 Brain Natriuretic Peptide Brain Natriuretic Peptide Lab Add-On One Time for 1 Occurrences starting 11/25/2021 until 11/25/2021 [facility] Work Phone: Comment on above: One Time for 1 Occur rences starting 11/25/2021 until 11/25/2021 Continuous pulse oximetry Pulse oximetry, continuous Respiratory Care Routine Every 4hr until discontinued starting 11/26/2021 [facility] Work Phone: Comment on above: Every 4hr until disc ontinued starting 11/26/2021 End: 09-26-2022 Ct abdomen w/contrast material CT LIVER W IVCON Radiology Routine Abnormal results of liver function studies 1 Occurrences starting 08/27/2021 until 09/26/2022 [facility] Work Phone: Comment on above: 1 Occurrences starti ng 08/27/2021 until 09/26/2022 EKG 12 lead EKG 12 lead ECG Routine As Needed until discontinued starting 11/26/2021 [facility] Work Phone: Comment on above: As Needed until disc ontinued starting 11/26/2021 EKG 12 lead EKG 12 lead ECG Routine As Needed until discontinued starting 11/26/2021 [facility] Work Phone: Comment on above: As Needed until disc ontinued starting 11/26/2021 EKG 12 lead EKG 12 lead ECG Routine 11/27/2021 6:16 AM EDT [facility] Work Phone: Oxygen therapy [[facility] Data Set] Initiate Oxygen Therapy Protocol Respiratory Care Routine As Needed until discontinued starting 11/26/2021 [facility] Work Phone: Comment on above: As Needed until disc ontinued starting 11/26/2021 Patient Education [facility] Work Phone: Patient referral [facility] Work Phone: End: 11-26-2021 Troponin I.cardiac [Mass/volume] in Serum or Plasma Troponin Lab STAT One Time for 1 Occurrences starting 11/26/2021 until 11/26/2021 [facility] Work Phone: Comment on above: One Time for 1 Occur rences starting 11/26/2021 until 11/26/2021 Martell Clarki c Immunizations Immunization Date Immunization Notes Care Provider Laurence schofield 12-25-2017 influenza virus vacc ine, unspecified formulation Marquis Lott MD Work Phone: [facility] 06-18-2017 pneumococcal polysaccharide vaccine, 23 valent BUSHRA GRAYSON MD [facility] 01-25-2015 influenza virus vacc ine, unspecified formulation BUSHRA GRAYSON MD [facility] 11-16-2013 influenza virus vacc ine, unspecified formulation BUSHRA GRAYSON MD [facility] 11-02-2013 pneumococcal polysaccharide vaccine, 23 valent BUSHRA GRAYSON MD [facility] 11-02-[address] Clayton Dc Work Phone: [facility] Work Phone: 11-02-2013 pneumococcal vaccine , unspecified formulation Dr. Gato Dc Work Phone: [facility] 12-16-[address] Gato Dc Work Phone: [facility] 03-12-2012 influenza virus vacc ine, unspecified formulation BUSHRA GRAYSON MD [facility] 09-11-2011 hepatitis A vaccine, adult dosage BUSHRA GRAYSON MD [facility] 09-11-2011 hepatitis A and hepatitis B vaccine Marquis Lott MD Work Phone: [facility] 06-01-2009 tetanus toxoid, redu kenzie diphtheria toxoid, and acellular pertussis vaccine, adsorbed BUSHRA GRAYSON MD [facility] 01-25-2007 Human Papillomavirus Raymondval BUSHRA GRAYSON MD [facility] 02-04-2006 Human Papillomavirus Kishan GRAYSON MD [facility] 11-28-2005 Human Papillomavirus Raymondval BUSHRA GRAYSON MD [facility] 04-19-2004 hepatitis B pediatri c vaccine BUSHRA GRAYSON MD [facility] 11-20-2003 hepatitis B pediatri c vaccine BUSHRA GRAYSON MD [facility] 10-20-2003 hepatitis B pediatri c vaccine BUSHRA GRAYSON MD [facility] 10-20-2003 tetanus and diphther ia toxoids, adsorbed, preservative free, for adult use (5 Lf of tetanus toxoid and 2 Lf of diphtheria toxoid) BUSHRA GRAYSON MD [facility] 09-01-1990 diphtheria, tetanus toxoids and acellular pertussis vaccine, unspecified formulation BUSHRA GRAYSON MD [facility] 09-01-1990 poliovirus vaccine, inactivated BUSHRA GRAYSON MD [facility] 04-29-1988 diphtheria, tetanus toxoids and acellular pertussis vaccine, unspecified formulation BUSHRA GRAYSON MD [facility] 04-29-1988 poliovirus vaccine, inactivated BUSHRA GRAYSON MD [facility] 11-26-1987 diphtheria, tetanus toxoids and acellular pertussis vaccine, unspecified formulation BUSHRA GRAYSON MD [facility] 09-03-1987 diphtheria, tetanus toxoids and acellular pertussis vaccine, unspecified formulation BUSHRA GRAYSON MD [facility] 09-03-1987 measles/mumps/rubell a virus vaccine BUSHRA GRAYSON MD [facility] 09-03-1987 poliovirus vaccine, inactivated BUSHRA GRAYSON MD [facility] 12-14-1985 diphtheria, tetanus toxoids and acellular pertussis vaccine, unspecified formulation BUSHRA GRAYSON MD [facility] 12-14-1985 poliovirus vaccine, inactivated BUSHRA GRAYSON MD [facility] Payers Date Payer Category Payer Self-pay [id number] 2023 Private Health Insurance [id number] 2022 Private Health Insurance [id number] 2015 Private Health Insurance AETNA A ETNA CHOICE POS II [id number] 2015-Present [phone] [address] [place] [address] POS [id number] 2014 Private Health Insurance [id number] 2014 Private Health Insurance 1984 Unknown [id number] 1984 Unknown [id number]. 668 1984 Unknown [id number]. 627 1984 Unknown [id number]. 627 1984 Unknown [id number]. 627 Unknown [facility] [id number] Unknown [id number]. 462 Unknown [id number]. 462 Unknown [id number] 2.840.1.763859.3.579.2. 462 Unknown [id number] 2.840.1.116953.3.579.2. 462 Unknown [id number] 2.840.1.782297.3.579.2. 462 Unknown [id number] [id number]. 462 Unknown [id number] 2.840.1.946823.3.579.2. 462 Unknown [id number] 2.840.1.075200.3.579.2. 462 Unknown [id number] 2.840.1.258670.3.579.2. 462 Unknown [id number] [id number]. 462 Unknown [id number] [id number]. 462 Unknown [id number]. 462 Social History Date Type Detail Facility Start: 05-09-2021 End: 12-12-2022 Tobacco smoking status NHIS Unknown if ever smoked [facility] Start: 05-22-2020 None [facility] Start: 05-22-2020 Spouse/ Signif icant Other [facility] Start: 06-25-2020 Non-smoker [facility] Start: 1985 Sex Assigned At Female S [facility] Start: 03-13-2016 End: 06-11-2017 Tobacco smoking status NHIS Ex-smoker [facility] End: 02-17-2004 History of tobacco use Current smoker [facility] End: 02-17-2004 History of tobacco use Cigarette Smoker [facility] Start: 03-13-2016 End: 11-28-2022 Cigarettes smoked current (pack per day) - Reported 0.5 [facility] Start: 03-13-2016 End: 06-11-2017 Tobacco use and exposure Smokeless tobacco non-user [facility] Start: 08-27-2021 Alcohol intake Ex-drinker (finding) [facility] Start: 06-11-2017 History SDOH Alcohol Comment Occasionally; once a week [facility] Start: 1985 Sex Assigned At Not on file [facility] Start: 04-25-2019 End: 11-09-2023 Tobacco smoking status DEIS [facility] smoked [facility]: Comment on above: no smoke exposure Start: 11-25-2021 Alcohol intake Lifetime non-d gavin (finding) [facility] Work Phone: Start: 04-25-2019 History SDOH Alcohol Frequency 1 [facility] Work Phone: Start: 11-15-2021 End: 06-30-2022 Exposure to SARS-CoV-2 (event) Not sure [facility] Work Phone: Start: 06-30-2022 Alcohol intake Current drinke r of alcohol (finding) [facility] Start: 08-27-2021 End: 11-28-2022 Tobacco use panel [facility] National Score (1-10 0), lower number is lower risk 60 [facility] Sexual Sexually active: Yes. Current partners: 0. [facility] Sexual Orientation [facility] Start: 08-11-2018 Sex Female (finding) [facility] Medical Equipment Procedure Code Equipment Code Equipment Origin al Text Equipment Identifier Dates Removal, ectopic , laparoscopic SEALANT,FLOSEAL HEMOSTATIC 5ML FDA Start: 06-25-2020 Removal, ectopic , laparoscopic SEALANT,FLOSEAL HEMOSTATIC 5ML FDA Start: 06-25-2020 Removal, ectopic , laparoscopic SEALANT,FLOSEAL HEMOSTATIC 5ML FDA Start: 06-25-2020 Removal, ectopic , laparoscopic SEALANT,FLOSEAL HEMOSTATIC 5ML FDA Start: 06-25-2020 Removal, ectopic , laparoscopic SEALANT,FLOSEAL HEMOSTATIC 5ML FDA Start: 06-25-2020 Removal, ectopic , laparoscopic SEALANT,FLOSEAL HEMOSTATIC 5ML FDA Start: 06-25-2020 Removal, ectopic , laparoscopic SEALANT,FLOSEAL HEMOSTATIC 5ML FDA Start: 06-25-2020 Removal, ectopic , laparoscopic SEALANT,FLOSEAL HEMOSTATIC 5ML FDA Start: 06-25-2020 Removal, ectopic , laparoscopic SEALANT,FLOSEAL HEMOSTATIC 5ML FDA Start: 06-25-2020 Removal, ectopic , laparoscopic SEALANT,FLOSEAL HEMOSTATIC 5ML FDA Start: 06-25-2020 Removal, ectopic , laparoscopic SEALANT,FLOSEAL HEMOSTATIC 5ML FDA Start: 06-25-2020 Removal, ectopic , laparoscopic SEALANT,FLOSEAL HEMOSTATIC 5ML FDA Start: 06-25-2020 Removal, ectopic , laparoscopic SEALANT,FLOSEAL HEMOSTATIC 5ML FDA Start: 06-25-2020 Removal, ectopic , laparoscopic SEALANT,FLOSEAL HEMOSTATIC 5ML FDA Start: 06-25-2020 Removal, ectopic , laparoscopic SEALANT,FLOSEAL HEMOSTATIC 5ML FDA Start: 06-25-2020 Laparoscopy, diagnostic DRESSING,INTERCEED 3X4 FDA Start: 02-06-2019 Laparoscopy, diagnostic SEALANT,FLOSEAL HEMOSTATIC 5ML FDA Start: 02-06-2019 Laparoscopy, diagnostic DRESSING,INTERCEED 3X4 FDA Start: 02-06-2019 Laparoscopy, diagnostic SEALANT,FLOSEAL HEMOSTATIC 5ML FDA Start: 02-06-2019 Laparoscopy, diagnostic DRESSING,INTERCEED 3X4 FDA Start: 02-06-2019 Laparoscopy, diagnostic SEALANT,FLOSEAL HEMOSTATIC 5ML FDA Start: 02-06-2019 Laparoscopy, diagnostic DRESSING,INTERCEED 3X4 FDA Start: 02-06-2019 Laparoscopy, diagnostic SEALANT,FLOSEAL HEMOSTATIC 5ML FDA Start: 02-06-2019 Laparoscopy, diagnostic DRESSING,INTERCEED 3X4 FDA Start: 02-06-2019 Laparoscopy, diagnostic SEALANT,FLOSEAL HEMOSTATIC 5ML FDA Start: 02-06-2019 Laparoscopy, diagnostic DRESSING,INTERCEED 3X4 FDA Start: 02-06-2019 Laparoscopy, diagnostic SEALANT,FLOSEAL HEMOSTATIC 5ML FDA Start: 02-06-2019 Laparoscopy, diagnostic DRESSING,INTERCEED 3X4 FDA Start: 02-06-2019 Laparoscopy, diagnostic SEALANT,FLOSEAL HEMOSTATIC 5ML FDA Start: 02-06-2019 Laparoscopy, diagnostic DRESSING,INTERCEED 3X4 FDA Start: 02-06-2019 Laparoscopy, diagnostic SEALANT,FLOSEAL HEMOSTATIC 5ML FDA Start: 02-06-2019 Laparoscopy, diagnostic DRESSING,INTERCEED 3X4 FDA Start: 02-06-2019 Laparoscopy, diagnostic SEALANT,FLOSEAL HEMOSTATIC 5ML FDA Start: 02-06-2019 Laparoscopy, diagnostic DRESSING,INTERCEED 3X4 FDA Start: 02-06-2019 Laparoscopy, diagnostic SEALANT,FLOSEAL HEMOSTATIC 5ML FDA Start: 02-06-2019 Laparoscopy, diagnostic DRESSING,INTERCEED 3X4 FDA Start: 02-06-2019 Laparoscopy, diagnostic SEALANT,FLOSEAL HEMOSTATIC 5ML FDA Start: 02-06-2019 Laparoscopy, diagnostic DRESSING,INTERCEED 3X4 FDA Start: 02-06-2019 Laparoscopy, diagnostic SEALANT,FLOSEAL HEMOSTATIC 5ML FDA Start: 02-06-2019 Laparoscopy, diagnostic DRESSING,INTERCEED 3X4 FDA Start: 02-06-2019 Laparoscopy, diagnostic SEALANT,FLOSEAL HEMOSTATIC 5ML FDA Start: 02-06-2019 Laparoscopy, diagnostic DRESSING,INTERCEED 3X4 FDA Start: 02-06-2019 Laparoscopy, diagnostic SEALANT,FLOSEAL HEMOSTATIC 5ML FDA Start: 02-06-2019 Laparoscopy, diagnostic DRESSING,INTERCEED 3X4 FDA Start: 02-06-2019 Laparoscopy, diagnostic SEALANT,FLOSEAL HEMOSTATIC 5ML FDA Start: 12-22-2019 Clinical Notes 08-27-2021 to 12-28-2023 LaboratoryRadiologyLaboratoryLaboratoryCamille Murillo RT(R) - 08/05/2023 2:20 PM Dez Lott MD - 06/30/2022 2:15 PM Chris Ibarra - 11/27/2021 1:48 PM EDT Note Date & Type Note Facility 12-28-2023 Evaluation + Plan note Future Scheduled TestsTestosterone,Free and Total 12/28/23Estradiol Level 12/28/23Luteinizing Hormone 12/28/23Progesterone Level 12/28/23Anti-Mullerian Hormone (AMH) 12/28/23Follicle Stimulating Hormone Level 12/28/23MA Mammo Screening Bilateral w/ Denny 12/02/24 [facility] 12-01-2023 Evaluation + Plan note Diagnostic Tests PendingAnti-Mullerian Hormone (AMH) 12/01/23Testosterone,Free and Total 12/01/23 Future Scheduled TestshCG, quantitative(AO) 11/09/23TSH with Reflex to FT4 11/09/23Estradiol Level 11/24/23Luteinizing Hormone 11/24/23Anti-Mullerian Hormone (AMH) 11/09/23Follicle Stimulating Hormone Level 11/24/23 [facility] 11-09-2023 Evaluation + Plan note Future Scheduled TestshCG, quantitative(AO) 11/09/23TSH with Reflex to FT4 11/09/23Anti-Mullerian Hormone (AMH) 11/09/23 [facility] 08-05-2023 History of Present illness Narrative Radiology Service Progress Note DATE OF SERVICE: August 05, 2023 TIME: 2:54 PM PATIENT IDENTITY VERIFICATION COMPLETED USING TWO (2) STANDARD IDENTIFIERS: Name and Date of confirmed by patient verbally. FALL SCREENING: Has the patient had 2 falls in the last year or 1 fall with injury or currently using an Ambulatory Assistive Device (Walker, Cane, Wheelchair, Crutches, etc.)? No PATIENT GENDER DATA: Female. status: : No status: NO. PATIENT RELEVANT IMPLANT DATA REVIEWED: Yes PATIENT PRESENTS WITH AN IMPLANTABLE OR ATTACHED LANDSCAPE PAINTER: No ALLERGIES: Reviewed and unchanged CONTRAST ALLERGY: NO. EXAM: MRI - CONTRAST TYPE: GROUP II PERIPHERAL IV DATA: Ambulatory: A peripheral IV was started in the Right antecubital site with a Angio cath: 22 gauge. RADIOLOGY DEPARTMENT: MR; Exam(s) Completed: Head: Routine Brain SIGNATURE: RT Ana(Tobi) PATIENT NAME: Michelle Mauricio DATE: August 05, 2023 TIME: 2:54 PM documented in this encounter [facility] 08-05-2023 Note HNO ID: [id number] Author: CAMILLE MURILLO RT (R) Service: ? Author Type: Technologist Type: Progress Notes Filed: 08/05/2023 14:55 Note Text: Radiology Service Progress Note DATE OF SERVICE: August 05, 2023 TIME: 2:54 PM PATIENT IDENTITY VERIFICATION COMPLETED USING TWO (2) STANDARD IDENTIFIERS: Name and Date of confirmed by patient verbally. FALL SCREENING: Has the patient had 2 falls in the last year or 1 fall with injury or currently using an Ambulatory Assistive Device (Walker, Cane, Wheelchair, Crutches, etc.)? No PATIENT GENDER DATA: Female. status: : No status: NO. PATIENT RELEVANT IMPLANT DATA REVIEWED: Yes PATIENT PRESENTS WITH AN IMPLANTABLE OR ATTACHED LANDSCAPE PAINTER: No ALLERGIES: Reviewed and unchanged CONTRAST ALLERGY: NO. EXAM: MRI - CONTRAST TYPE: GROUP II PERIPHERAL IV DATA: Ambulatory: A peripheral IV was started in the Right antecubital site with a Angio cath: 22 gauge. RADIOLOGY DEPARTMENT: MR; Exam(s) Completed: Head: Routine Brain SIGNATURE: RT Ana(Tobi) PATIENT NAME: Michelle Mauricio DATE: August 05, 2023 TIME: 2:54 PM [facility] 12-19-2022 Note . MICRO - Microbiology PROCEDURE: [...] Locations *1: This test was performed at: [facility], [address] [place] [address], [id number] , [facility] ([place]) 11-28-2022 Note HNO ID: [id number] Author: Melissa Langley RT(R) Service: ? Author Type: Productivity Engineer Type: Progress Notes Filed: 11/28/2022 4:11 PM [...] DATE: November 28, 2022 TIME: 4:10 PM [facility] 06-30-2022 Note This 36-year-old fem grace, G5, P3, was referred for breast evaluation. She states she has a [id number]-ivp and continues to breast-feed. She has been [...] adenopathy, either side. Imaging was done in [place] and was not available for review. Impression: Probable discomfort due to lactational changes in tail of breast with a reactive axillary lymph node. Plan: Continue close observation with frequent self exams. Trial of diclofenac gel to left axilla. Agree with follow-up left axillary ultrasound. She will notify us should she have a change in self-exam in the interim. [facility] 06-30-2022 History of Present illness Narrative This 36-year-old female, G5, P3, was referred for breast evaluation. She states she has a 74-isudt-odr and continues to breast-feed. She has been [...] adenopathy, either side. Imaging was done in [place] and was not available for review. Impression: Probable discomfort due to lactational changes in tail of breast with a reactive axillary lymph node. Plan: Continue close observation with frequent self exams. Trial of diclofenac gel to left axilla. Agree with follow-up left axillary ultrasound. She will notify us should she have a change in self-exam in the interim. documented in this encounter [facility] 01-02-[address] [facility] Pap Smear Specimen Adequacy January 02, 2022 11:19am Comment . Satisfactory for evaluation. Endocervical and/or squamous metaplasticcells (endocervical component) are present. Comment on above: Satisfactory for eulalio luation. Endocervical and/or squamous metaplasticcells (endocervical component) are present. 01-02-[address] [facility] Pap Smear Specimen Adequacy January 02, 2022 11:19am Comment . Satisfactory for evaluation. Endocervical and/or squamous metaplasticcells (endocervical component) are present. Comment on above: Satisfactory for eulalio luation. Endocervical and/or squamous metaplasticcells (endocervical component) are present. 01-02-[address] [facility] Pap Smear Specimen Adequacy January 02, 2022 11:19am Comment . Satisfactory for evaluation. Endocervical and/or squamous metaplasticcells (endocervical component) are present. Comment on above: Satisfactory for eulalio luation. Endocervical and/or squamous metaplasticcells (endocervical component) are present. 11-27-2021 History of Presen t illness Narrative Nutrition rescreen completed. Chart reviewed. Patient to be monitored and followed by the diet surveillance camera technician. BLANCA Walters CARDIOLOGY PROGRESS NOTE Chart and interval events [...] and will follow locally with her local delinquency prevention officer and engraver seals for further evaluation and treatment. I reviewed my assessment and plan with Michelle Mauricio . All questions were answered. Addendum: will arrange CPET and F/U with me after CPET. Cardiology will sign off. NOTE: This report was transcribed using voice recognition software. Every effort was made to ensure accuracy; however, inadvertent computerized lecturer in marketing errors may be present. Electronicallysigned by Otfried N Niedermaier, MD on 11/27/2021 at 9:26 AM documented in this encounter [facility] Work Phone: 11-27-2021 Note Hospitalist Discharg e Summary Michelle Mauricio : 1985 Admit date: 11/25/2021 Discharge date: 11/27/2021 Admitting Physician: Mario Bell MD Primary Care Physician: Gato Dc MD Visit Status: Observation Code Status: Full [...] after testing. She should f/u with her engraver seals as well. See discharge diagnoses list above [...] known as: CYANOCOBALAMIN vitamin D 50 MCG (1999 [place]) Caps capsule STOP taking these medications Actemra 162 MG/0.9ML Sosy injection Generic drug: tocilizumab buPROPion 300 MG extended release tablet Commonly known as: WELLBUTRIN XL calcium carbonate 500 MG Tabs tablet Commonly known as: OSCAL diclofenac sodium 1 % Gel Commonly known as: VOLTAREN NUVARING [place] Recommended Follow-up: MD Chapo Mueller (more content not included)... [facility] 09-12-[address] showed enlarged liver with stable hemangioma. No evidence of advanced liver disease. Prior liver biopsy was unremarkable. No need for further work up No need for further work up Minesh Cottrell MD Dr. Cottrell, please review CT liver and advise. Thank you, Shara Acosta RN documented in this encounter [facility] 09-11-2021 History of Presen t illness Narrative Radiology Service Progress Note DATE [...] TIME: 12:02 PM documented in this encounter [facility] 08-27-2021 History and physical note Hepatology Clinic [...] Lymph 1.00 - 4.00 k/uL 2.11 1.67 [place]% % 6.6 8.5 Abs [place] <0.87 k/uL 0.54 0.44 Eosin% % 1.0 [...] Quant mIU/mL 74.9 Assessment and Recommendations Michelle Mauricio is a 35 year old [...] to further evaluate hepatomegaly Minesh Cottrell MD Change Management Experta/c technician [facility] Dept of Gastroenterology and Hepatology documented in this encounter [facility] 08-27-2021 History of Presen t illness Narrative y documented in this encounter [facility] Evaluation + Plan note No data available for this section [facility] Evaluation note Diagnosis Onset Date Heart murmur acute Palpitations acute PFO (patent foramen ovale) c hronic Headache acute acute [facility] Work Phone: Evaluation note* Diagnosis Onset Date Resolution Status Headache acute acute acute [facility] Work Phone: Evaluation note* Diagnosis Onset Date Resolution Status resolved resolved [facility] Work Phone: Evaluation note* Diagnosis Hepatomegalia- Primary Hepatomegaly Abnormal results of liver function studies Nonspecific abnormal results of liver function study [facility]* Diagnosis Abnormal results of liver function studies Nonspecific abnormal results of liver function study documented in this encounter [facility]No assessment [facility]: [facility]* Diagnosis Dyspnea, unspecified type- Primary Mild intermittent asthma without complication Unspecified asthma ASD (atrial septal defect) Ostium secundum type atrial septal defect documented in this encounter [facility] Work Phone: Evaluation note* Diagnosis Onset Date Resolution Status Dyspnea acute Palpitations acute PFO (patent foramen ovale) c hronic [facility] Work Phone: Evaluation note* Diagnosis Fibrocystic disease of both breasts- Primary Axillary adenopathy Enlargement of lymph nodes documented in this encounter [facility] note* Diagnosis Onset Date Resolution Status Breast cyst acute Mastodynia of left breast [place] Constipation chronic Hepatomegaly [facility] Work Phone: Evaluation note* Diagnosis Onset Date Resolution Status Breast cyst acute Mastodynia of left breast ac [place] Constipation chronic Hepatomegaly chronic Abnormal ultrasound of breast acute [facility] Work Phone: Evaluation note* Diagnosis Onset Date Resolution Status Chronic constipation chronic Hepatomegaly [facility] Work Phone: Hospital Discharge instructions No data available for this section [facility] Progress note No data available for this section [facility] Summary Purpose Family History No Family History Records Found Relationship Condition Age at Onset Recorded Date/T rowena Not Specified Coronary artery disease Unknown Mixed hyperlipidemia Unknown grandmother Malignant neoplasm Unknown Arthritis Unknown mother Arthritis Unknown Depression Unknown Relationship Condition Age at Onset Recorded Date/T rowena Not Specified Coronary artery disease Unknown Mixed hyperlipidemia Unknown grandmother Arthritis Unknown Malignant neoplasm Unknown mother Arthritis Unknown Depression Unknown Relationship Condition Age at Onset Recorded Date/T rowena Not Specified Coronary artery disease Unknown Mixed hyperlipidemia Unknown grandmother Arthritis Unknown Malignant neoplasm Unknown mother Arthritis Unknown Depression Unknown father Hypertension Unknown Advance Directives No Advanced Directives Records Found Advance Directive Response Recorded Date/ Time Advance Directives No December 06, 2018 11:40am Living Will No May 09, 2021 7:51am Power of Project Asst No May 09 7:51am Advance Directive Response Recorded Date/ Time Advance Directives No December 06, 2018 11:40am Living Will No May 17, 2021 8:34am Power of Project Asst No May 17 8:34am Documents on File Type Date Recorded Patient Attenuator Expl anation Advance Directive(s) 10/26/2019 1:33 PM Advance Directive(s) 10/10/2019 8:34 AM Documents on File Type Date Recorded Patient Attenuator Expl anation Advance Directive(s) 10/26/2019 1:33 PM Advance Directive(s) 10/10/2019 8:34 AM Latest Code Status on File Code Status Date Activated Date Inactivated Comments Full Code 11/26/2021 5:46 AM Latest Code Status on File Code Status Date Activated Date Inactivated Comments Full Code 11/26/2021 5:46 AM 11/27/2021 8:40 PM Advance Directive Response Recorded Date/ Time Advance Directives No December 06, 2018 10:40am Living Will No May 17, 2021 7:34am Power of Project Asst No May 17 7:34am Procedure Findings Note HNO ID: [id number] Author: Shena Kim Service: ? Author Type: Nurse Motion Picture Camera Lens Technician Type: Anesthesia Procedure Notes Filed: 10/26/2019 3:18 PM Note Text: ANESTHESIOLOGY PROCEDURE NOTE Airway General Information Procedure Start Time/Medication Administration: 10/26/2019 2:59 PM Patient location during procedure: OR Staffing Anesthesiologist: Gato Espinoza HANDBAG DESIGNER: Desi Kim Performed by: ASHLEE Indications and Patient Condition [...] (more content not included)... Note HNO ID: [id number] Author: Shena Kim Service: ? Author Type: Nurse Motion Picture Camera Lens Technician Type: Anesthesia Procedure Notes Filed: 10/26/2019 3:18 PM Note Text: ANESTHESIOLOGY PROCEDURE NOTE Gastric Tube General Information Procedure Start Time/Medication Administration: 10/26/2019 3:01 PM Patient location during procedure: OR Indication: gastric decompression Staffing Anesthesiologist: Gato Espinoza HANDBAG DESIGNER: Desi Kim Performed by: ASHLEE Procedure Details Type: Orogastric tube Size: 18 Fr cm Distance Advanced: 55 cm Successful Placement: yes Post-Procedure Details Patient tolerated the procedure well with no immediate complications SIGNATURE: Desi Kim APRN.CRNA PATIENT NAME: Michelle Mauricio DATE: October 26, 2019 TIME: 3:17 PM CSN: [id number] Note HNO ID: [id number] Author: Rohith Lyon Service: General Surgery Author Type: Resident Type: Brief Op Note Filed: 10/26/2019 4:28 PM Note Text: BRIEF OPERATIVE / PROCEDURE NOTE LOG ID: [id number] SURGERY/PROCEDURE DATE: 10/26/2019 INCISION/PROCEDURE START TIME: 3:16 PM INCISION CLOSE/PROCEDURE END TIME: 4:19 PM SURGEON(S)/PROCEDURALIST(S) AND WINDOWS SYSTEM ADMIN(S): Surgeon(s) and Role: * Marko Almaraz - [...] 26, 2019 TIME: 4:25 PM PAGER/CONTACT #: [phone] Chief Complaint and Reason for Visit Chief Complaint 1 y fu R/O PRE E LABWORK ELEVATED BP INDUCTION OF LABOR Reason for Visit Heart murmur Palpitations PFO (patent foramen ovale) Headache Chief Complaint R/O PRE E LABWORK ELEVATED BP INDUCTION OF LABOR VAG DELIVERY Reason for Visit Headache Chief Complaint LABWORK ELEVATED BP INDUCTION OF LABOR VAG DELIVERY RUQP Reason for Visit Chief Complaint Shortness of breath Mercyson 2 ORDERING DOCTORS DYSPNEA Reason for Visit Dyspnea Palpitations PFO (patent foramen ovale) Chief Complaint 2 W FU PALPS 30 DAY MONITOR Reason for Visit Dyspnea Palpitations PFO (patent foramen ovale) Chief Complaint PALPS 30 DAY MONITOR Chief Complaint DISORDER OF LT BREAS T Chief Complaint DISORDER OF LT BREAS T L BREAST PAIN- BIRADS 3 Consult E ORDERS MASTODYNIA Reason for Visit Breast cyst Mastodynia of left breast Constipation Hepatomegaly Chief Complaint DISORDER OF LT BREAS T L BREAST PAIN- BIRADS 3 Consult E ORDERS MASTODYNIA L BREAST BIRADS 4 LEFT BREAST BIOPSY Reason for Visit Breast cyst Mastodynia of left breast Constipation Hepatomegaly Abnormal ultrasound of breast Chief Complaint 4 MO FU Other specified postprocedural states Reason for Visit Chronic constipation Hepatomegaly Chief Complaint 4 MO FU Other specified postprocedural states EORDER Reason for Visit Chronic constipation Hepatomegaly Reason for Referral Specialty Diagnoses / Procedures Referred By Lucy antunez Referred To Contact CT IMAGING Diagnoses Abnormal results of liver function studies Procedures CT LIVER W IVCON [place] ABDOMEN W/[place] [address] [place] [address] Ct Imaging Referral ID Status Reason Start Date Expiration Date Visits Requested Visits Authorized [id number] Authorized Auto-Generat ed Referral 08/27/2021 09/26/2022 1 1 Referral ID Status Reason Start Date Expiration Date V isits Requested Visits Authorized [id number] Closed Auto-Generate d Referral 08/27/2021 09/26/2022 1 1 Additional Source Comments INFORMATION SOURCE (unrecogn ized section and content) DATE CREATED AUTHOR 11/02/2019 [facility] DATE CREATED AUTHOR AUTHOR'S ORGANIZ ATION 12/07/2019 [facility] DATE CREATED AUTHOR AUTHOR'S ORGANIZ ATION 04/25/2020 [facility] DATE CREATED AUTHOR AUTHOR'S ORGANIZ ATION 12/12/2021 [facility] DATE CREATED AUTHOR AUTHOR'S ORGANIZ ATION 07/01/2022 [facility] DATE CREATED AUTHOR AUTHOR'S ORGANIZ ATION 12/22/2022 [facility] ([place]) DATE CREATED AUTHOR AUTHOR'S ORGANIZ ATION 08/07/2023 [facility] DATE CREATED AUTHOR AUTHOR'S ORGANIZ ATION 10/09/2024 [facility] DATE CREATED AUTHOR AUTHOR'S ORGANIZ ATION 12/28/2024 [facility] Goals (unrecognized section and content) Goals may be documented in a n alternate sectionGoals may be documented in an alternate sectionGoals may be documented in an alternate sectionGoals may be documented in an alternate sectionGoals may be documented in an alternate sectionGoals may be documented in an alternate sectionGoals may be documented in an alternate sectionGoals may be documented in an alternate sectionGoals may be documented in an alternate sectionGoals may be documented in an alternate sectionGoals may be documented in an alternate sectionGoals may be documented in an alternate sectionGoals may be documented in an alternate section No data available for this sectionGoals may be documented in an alternate sectionGoals may be documented in an alternate section No data available for this section No data available for this section No data available for this section No data available for this section Source Comments (unrecognize d section and content) In the event this informatio n is protected by the Federal Confidentiality of Alcohol and Drug Abuse Patient Records regulations: The Federal rules restrict any use of the information to criminally investigate or prosecute any alcohol or drug abuse patient.[facility] Health[facility] the event this information is protected by the Federal Confidentiality of Alcohol and Drug Abuse Patient Records regulations: The Federal rules restrict any use of the information to criminally investigate or prosecute any alcohol or drug abuse patient.[facility] HealthIn the event this information is protected by the Federal Confidentiality of Alcohol and Drug Abuse Patient Records regulations: The Federal rules restrict any use of the information to criminally investigate or prosecute any alcohol or drug abuse patient.[facility] Health[facility] the event this information is protected by the Federal Confidentiality of Alcohol and Drug Abuse Patient Records regulations: The Federal rules restrict any use of the information to criminally investigate or prosecute any alcohol or drug abuse patient.[facility] HealthIn the event this information is protected by the Federal Confidentiality of Alcohol and Drug Abuse Patient Records regulations: The Federal rules restrict any use of the information to criminally investigate or prosecute any alcohol or drug abuse patient.[facility] Reason for Visit (unrecogniz ed section and content) Reason Comments New Patient Evaluation Reason Comments Radiology CT Specialty Diagnoses / Procedures Referred By Contac t Referred To Contact CT IMAGING Diagnoses Abnormal results of liver function studies Procedures CT LIVER W IVCON [place] ABDOMEN W/[place] [address] [place] [address] Ct Imaging Referral ID Status Reason Start Date Expiration Date V isits Requested Visits Authorized [id number] Closed Auto-Generate d Referral 08/27/2021 09/26/2022 1 [...] Care Teams (unrecognized sec tion and content) Core Measures Abstractor Relationship Specialty Start Date End Date Gato Dc [address] [place] [address] PCP - General Family Practice 10/10/19 Core Measures Abstractor Relationship Specialty Start Date End Date Gato Dc [address] [place] [address] PCP - General Family Practice 10/10/19 Core Measures Abstractor Relationship Specialty Start Date End Date Gato Dc [address] [place] [address] PCP - General Family Practice 10/10/19 Core Measures Abstractor Relationship Specialty Start Date End Date Gato Dc MD PCP - General Family Medicine 11/01/19 Core Measures Abstractor Relationship Specialty Start Date End Date Gato Dc MD PCP - General Family Medicine 11/01/19 Core Measures Abstractor Relationship Specialty Start Date End Date Gato Dc [address] [facility] [address] [place], [place] [id number] PCP - General Family Medicine 10/10/19 Team Status: Active Member Role Status Dates Dr. Becky Gallardo MD Family Provider Active Dr. Gato Dc MD Primary Care Provider Active Team Status: Inactive Member Role Status Dates Dr. Gato Dc MD Primary Care Provider, Referr ing Provider Active Ness Boland LABOR COMMISSIONER, LABOR COMMISSIONER-C Attending Provider Active Team Status: Active Member Role Status Dates Dr. Gato Dc MD Primary Care Provider Active Dr. Ralph Spears MD Attending Provider Active Ness Boland LABOR COMMISSIONER, LABOR COMMISSIONER-C Referring Provider Active Team Status: Active Member Role Status Dates Dr. Gato Dc MD Primary Care Provider Active Ness Boland NP, LABOR COMMISSIONER-C Attending Provider Active Team Status: Inactive Member Role Status Dates Dr. Gato Dc MD Primary Care Provider Active Dr. Anuj Cornelius MD Attending Provider Active Team Status: Inactive Member Role Status Dates Dr. Gato Dc MD Primary Care Provider Active Dr. Sheree Cornelius DO Attending Provider Active Team Status: Inactive Member Role Status Dates Dr. Gato Dc MD Primary Care Pr ovider, Attending Provider, Referring Provider Active Team Status: Active Member Role Status Dates Dr. Gato Dc MD Primary Care Provider Active Dr. Eric Barclay MD Attending Provider, Referring P rovider Active Team Status: Inactive Member Role Status Dates Dr. Gato Dc MD Primary Care Provider Active Dr. Eric Barclay MD Attending Provider, Referring P rovider Active Team Status: Inactive Member Role Status Dates Dr. Gato Dc MD Primary Care Provider Active CHRISTOPHER Coleman Attending Provider Active Core Measures Abstractor Relationship Specialty Start Date End Date Gato Dc MD [facility] [address] [id number] PCP - General 11/01/19 Team Status: Inactive Member Role Status Dates Dr. Gato Dc MD Primary Care Provider, Referr ing Provider Active Dr. Aroldo Miramontes DO Attending Provider Active Team Status: Inactive Member Role Status Dates Dr. Gato Dc MD Primary Care Provider, Referr ing Provider Active Dr. Carlos Euceda MD Attending Provider Active Team Status: Inactive Member Role Status Dates Dr. Gato Dc MD Primary Care Provider Active CHRISTOPHER Coleman Attending Provider, Referring Provi kade Active Team Status: Inactive Member Role Status Dates Dr. Gato Dc MD Primary Care Provider Active Dr. Aroldo Miramontes DO Attending Provider, Referring Provider Active Team Status: Inactive Member Role Status Dates Dr. Gato Dc MD Primary Care Provider Active Dr. Carlos Euceda MD Attending Provider, Referring Provider Active Core Measures Abstractor Relationship Specialty Start Date End Date Gato Dc MD [address] [facility] [address] [place] [address] PCP - General Family Medicine 10/10/19 Scheduled Active and Recently Administ ered Medications (unrecognized section and content) Medication Order 11/25/2021 11/26/2021 11/27/2021 0.9 % sodium chloride bolus 1,000 mL (12.3 mL/kg), IntraVENous, at 495.9 mL/hr, Administer over 121 Minutes, ONCE, On Thu11/25/21 at 1400, For 1 dose 1400 (Due) aspirin chewable tablet 81 mg 81 mg, Oral, DAILY, First dose on Thu11/27/21 at 0900, Until Discontinued 905 (Given - Provider: Jaimie Pope, JAVIER) enoxaparin (LOVENOX) injection 40 mg 40 mg, SubCUTAneous, DAILY, First dose on Thu11/26/21 at 0900, Until Discontinued, Indication of Use: Prophylaxis-DVT/PE 924 (Given - Provider: Daniela Spence RN) 905 (Given - Provider: Jaimie Pope, JAVIER) fluticasone (FLOVENT HFA) 110 MCG/ACT inhaler 1 puff 1 puff, Inhalation, 2 TIMES DAILY, First dose on Thu11/26/21 at 0915, Until Discontinued, Substituted for Beclomethasone (QVAR) inhaler. 954 (Given - Provider: Daniela Spence RN)1938 (Given - Provider: Twila Gray RN) 907 (Given - Provider: Jaimie Pope, JAVIER)1999 (Due) magnesium oxide (MAG-OX) tablet 400 mg 400 mg, Oral, DAILY, First dose on Thu11/26/21 at 0915, Until Discontinued 954 (Given - Provider: Daniela Spence RN) 09 (Given - Provider: Jaimie Pope, JAVIER) montelukast (SINGULAIR) tablet 10 mg 10 mg, Oral, NIGHTLY, First dose on Thu11/26/21 at 2100, Until Discontinued 1939 (Given - Provider: Twila Gray RN) 2100 (Due) vitamin 27-1 MG tablet 1 tablet 1 tablet, Oral, DAILY, First dose on Thu11/26/21 at 0915, Until Discontinued 09 (Given - Provider: Daniela Spence RN) 09 (Given - Provider: Jaimie Pope RN) sodium chloride flush 0.9 % injection 3 mL (CANCELED) 3 mL, IntraVENous, EVERY 8 HOURS, First dose on Thu11/25/21 at 1400, Until Discontinued, Flush line with 3-5 mL 1400 (Due)2213 (Given - Provider: Julia Ruelas RN) 0700 (Canceled Entry - Provider: Daniela Spence RN)1508 (Not Given - Provider: Richa Alvarez RN - Reason: Other) sodium chloride flush 0.9 % injection 5-40 mL 5-40 mL, IntraVENous, EVERY 12 HOURS SCHEDULED (2 times per day), First dose on Thu11/26/21 at 0900, Until Discontinued, For Line Patency: Peripheral IV = 5 [...] Midline or Central Line = 20 mL/lumen 1000 (Not Given - Provider: Daniela Spence RN - Reason: Other - Comment: previously given; review APR)2134 (Not Given - Provider: Twila Gray RN - Reason: Other - Comment: duplicate order) 0914 (Not Given - Provider: Jaimie Pope RN - Reason: Other - Comment: duplicate)2100 (Due) sodium chloride flush 0.9 % injection 5-40 mL 5-40 mL, IntraVENous, EVERY 12 HOURS SCHEDULED (2 times per day), First dose on Thu11/26/21 at 0915, Until Discontinued, For Line Patency: Peripheral IV = 5 [...] Midline or Central Line = 20 mL/lumen 0925 (Given - Provider: Daniela Spence RN)2100 (Given - Provider: Twila Gray RN) 0908 (Given - Provider: Jaimie Pope RN)2100 (Due) PRN Medication Order 11/25/2021 11/26/2021 11/27/2021 0.9 [...] Administer if oral route cannot be used. 162 (Given - Provider: Richa Alvarez RN) 034 (Given - Provider: Twila Gray, JAVIER) ondansetron (ZOFRAN-ODT) disintegrating tablet 4 mg(Linked Group 2) 4 mg, Oral, EVERY 8 HOURS PRN, Starting on Thu11/26/21 at 0835, Until Discontinued, Nausea, Vomiting 162 (See Alternative - Provider: Richa Alvarez RN) 034 (See Alternative - Provider: Twila Gray, JAVIER) polyethylene glycol (GLYCOLAX) packet 17 g 17 [...] Until Thu11/29/21 at 1141, Line Care, Per Senior Marketing Coordinator Request, May use order for Line Care after every IV line use and Agitated Saline Bubble Study. Administration for Bubble Study per driver guard request for only. Remove 1 mL 0.9% [...] BE BASED ON THE PRIMARY CLINICAL RECORDS. [email or web address] provides no warranty or guarantee of the accuracy or completeness of information in this document.
[2025-02-07 07:44] LABS: Vitamin B12 355 pg/mL (180-914); Vitamin D,25 Hydroxy 24.9 ng/mL (30-100)
== END | disposition home or self-care (01) ==
PROVIDERS: PCP Family Medicine; Referring Provider Family Medicine; Visit Provider Family Medicine
DX: E55.9 Vitamin D deficiency, unspecified (principal); E21.3 Hyperparathyroidism, unspecified; R53.83 Other fatigue
CPT/HCPCS: 36415; 82306; 82330; 82607

== ENCOUNTER → 2025-02-14 | Outpatient (CLI) | payer OTHER, SELFPAY ==
--- NOTE | 2025-02-14 10:06 | NM_ITS ---
PROCEDURE: PARATHYROID SCAN REASON FOR EXAM: HYPERPARATHYROIDISM, UNSPECIFIED TECHNIQUE: Procedure Code: NMPTHY Modality: NM Procedure: PARATHYROID SCAN Imaging performed following intravenous technetium-99m sestamibi administration. Anterior imaging of the neck, immediate and delayed. RADIOPHARMACEUTICAL: Intravenous administration of 27 mCi technetium 99 M sestamibi. COMPARISON: None. FINDINGS: Homogeneous and symmetric uptake is seen on immediate images, with homogeneously diminished activity throughout on delayed image. No focus of persistent or increased uptake is seen to suggest the presence of hyperfunctioning parathyroid tissue. NM/Parathyroid Scan IMPRESSION: Negative examination. No evidence of hyperfunctioning parathyroid tissue withi n the area imaged. Reading Location: [place] [address]
== END | disposition home or self-care (01) ==
LOC: NM 09:48
PROVIDERS: PCP Family Medicine; Referring Provider Family Medicine; Visit Provider Family Medicine
DX: E21.3 Hyperparathyroidism, unspecified (principal)
CPT/HCPCS: 78070; A9500